=== PATIENT | male | born 1955 | race Caucasian/White ===

== ENCOUNTER → 2017-11-03 | Outpatient (CLI) | payer BC | END | disposition home or self-care (01) | LOC: US 12:01 | DX: N50.812 Left testicular pain (principal) | CPT/HCPCS: 76870 ==

== ENCOUNTER 2019-01-23 15:06 | Inpatient (IN) | payer BC ==
[~2019-01-23] VITALS: Ht 172.7 cm; Wt 68.1 kg
[2019-01-23] VITALS (10 sets, daily range): BP systolic 76–160; BP diastolic 52–100
--- NOTE | 2019-01-23 01:00 | NUR ---
Pt reached goal temp at 2200. PT Blood sugar greater than 180 at 2300 insulin drip initiated at 2.6units per hour. Blood sugar at 0100 was 86 Insulin drip was stopped, blood sugars after insulin drip stopped were all below 180. Will continue to monitor.
[~2019-01-23 15:06] MED LIST: EPINEPHrine SYRINGE 1 MG/10 ML SYRINGE ONE; SODIUM BICARB ADULT 8.4% 50 MEQ/50 ML DISP.SYRIN. ONE
[2019-01-23] MEDS ORDERED: IV NORMAL SALINE 1000ML BAG 1,000 ML IV SCH ×2 (15:13→19:17)
[2019-01-23 15:19] LABS: BASE EXCESS ABG -19 mmol/L (-3-3); HCO3 ABG 11 mmol/L (21-28); PCO2 ABG 42 mmHg (35-46); PO2 ABG 125 mmHg (65-108); SAT O2 ABG 97 % (92-99)
[2019-01-23] MEDS ORDERED: MIDAZOLAM HCL/PF 5 MG/5 ML VIAL. ONE ×2 (15:25→17:00)
[2019-01-23] MEDS ORDERED: PROPOFOL 50 ML IV ONE (15:25)
[2019-01-23] MEDS ORDERED: SODIUM BICARB ADULT 8.4% 50 MEQ/50 ML DISP.SYRIN. IV ONE (15:30)
[2019-01-23 15:32] LABS: FIO2 ABG 100
[2019-01-23 15:35] LABS: BASO # 0.1 x10^3/uL (0.0-0.2); BASO % 0 % (0-3); EOS # 0.1 x10^3/uL (0.0-0.7); EOS % 0 % (0-3); HEMATOCRIT 49.9 % (39.0-53.0); HEMOGLOBIN 16.7 g/dL (13.0-17.5); LYMPH # 2.9 x10^3/uL (1.0-4.8); LYMPH % 15 % (24-48); MEAN CORPUSCULAR HEMOGLOBIN 32 pg (25-35); MEAN CORPUSCULAR HGB CONC 33 g/dL (31-37); MEAN CORPUSCULAR VOLUME 95 fL (79-100); MONO # 0.6 x10^3/uL (0.0-1.1); MONO % 3 % (0-9); NEUT # 15.8 x10^3/uL (1.8-7.7); NEUT % 81 % (31-73); PLATELET COUNT 164 x10^3/uL (140-400); RED BLOOD COUNT 5.25 x10^6/uL (4.30-5.70); RED CELL DISTRIBUTION WIDTH 13.7 % (11.5-14.5); WHITE BLOOD COUNT 19.5 x10^3/uL (4.0-11.0)
--- NOTE | 2019-01-23 15:36 | PDOC2 ---
CARDIAC CONSULT DATE OF CONSULT Date of Consult DATE: 01/23/19 TIME: 15:32 REASON FOR CONSULT Reason for Consult: post cardiac arrest REFERRING PHYSICIAN Referring Physician: Rita SOURCE Source: Caregiver (spouse), Chart review HISTORY OF PRESENT ILLNESS HISTORY OF PRESENT ILLNESS This is a 63 yo male admitted for noted cardiac arrest. Pt came home from work around 1330 and was not feeling well. He went ahead and lay down on the cough. The spouse prepared him some soup and a little later he started sounding like he was choking. She then noticed that he was gasping for air. He called 911 and was told to put him on his side. He was already unconscious at that time. EMS arrived and noted him on V fib arrest and ACLS provided. He received at least x3 epi and amiodarone bolus and multiple shocks. In a span of 33 minutes he had on and off episodes of V fib which I did not see the strip. He is currently intubated with vent and actually was tyring to wake up and sedation was adjusted. He was taken to CT and again code was called with noted VT. He does not have any hx of any cardiac disease and he does not take any medications. He does smoke tobacco. Details provided by his and actually he just had a r ecent left inguinal hernia repair. No hx of arrhythmias or VTE. No recreational drug use PAST MEDICAL HISTORY Cardiovascular: No pertinent hx Pulmonary: No pertinent hx CENTRAL NERVOUS SYSTEM: Other (No pertinent history) GI: Other (inguinal hernia) Heme/Onc: No pertinent hx Hepatobiliary: No pertinent hx Psych: No pertinent hx Musculoskeletal: Osteoarthritis Rheumatologic: No pertinent hx Infectious disease: No pertinent hx ENT: No pertinent hx Renal/: No pertinent hx Endocrine: No pertinent hx Dermatology: No pertinent hx PAST SURGICAL HISTORY Past Surgical History: Hernia Repair (left inguinal) FAMILY HISTORY Family History: Coronary Artery Disease (father) SOCIAL HISTORY Smoke: <1 pack per day ALCOHOL: none Drugs: None Lives: with Family ALLERGIES ALLERGIES: Coded Allergies: No Known Drug Allergies (Unverified , 01/23/19) ROS Review of System unreliable, intubated PHYSICAL EXAM General: Other (intubated) HEENT: Atraumatic, Mucous membr. moist/pink Lungs: Other (diminished bases, intubated, mechaincal vent) Heart: Regular rate (SR), Other (2/6 systolic murmur to LLS border; EKG abnormal) Extremities: No cyanosis, Other (1+ bilateral LE pitting edema) Skin: No breakdown, No significant lesion Neuro: Other (sedated) MUSCULOSKELETAL: Osteoarthritic changes both hands LABS Lab: Laboratory Tests Test 01/23/19 15:15 O2 Saturation 97 % (92-99) Arterial Blood pH 7.04 (7.35-7.45) *L Arterial Blood pCO2 at Patient Temp 42 mmHg (35-46) Arterial Blood pO2 at Patient Temp 125 mmHg (65-108) H Arterial Blood HCO3 11 mmol/L (21-28) L Arterial Blood Base Excess -19 mmol/L (-3-3) L FiO2 100 ASSESSMENT/PLAN ASSESSMENT/PLAN 1. Vfib arrest: on and off V fib en route 33 minutes approx. Suspect ischemia with possible LM involvement per EKG 2. Acute respiratory failure: intubated/vent 3. Small left apical pneumothorax/rib fractures: possibly from compression 4. Nausea and vomiting with possible aspiration 5. Hypokalemia 6. MARIANNE 7. Leukocytosis 8. Hypothyroidism: Defer to PCP new. TSH 10 9. Tobaccoism Recommendations 1. Urgent LHC today, risks and benefits discussed with spouse and agreeable to proceed. Head CT no acute findings. 2. Amiodarone drip and heparin to start. ASA. Replace 3. TTE, TSH, lipids. Mg 4. CTA chest/abd/pelvis was done and pending 5. Will consult nephrology and pulmonary 6. Hypothermia protocol to commence post ALFA Wyatt APRN Jan 23, 2019 15:36
[2019-01-23 15:44] LABS: PROTHROMBIN TIME PATIENT 15.3 SEC (11.7-14.0)
[2019-01-23] MEDS ORDERED: INSULIN REGULAR 100 UNIT/ML 3ML VIAL. IV ONE (15:45)
[2019-01-23] MEDS ORDERED: DEXTROSE 50% 25 GM / 50ML DISP.SYRIN. IV ONE (15:45)
[2019-01-23] MEDS ORDERED: IOHEXOL 350 MG/ML 100 ML VIAL. IV ONE (15:45)
[2019-01-23 15:47] LABS: ALBUMIN 3.5 g/dL (3.4-5.0); CALCIUM 8.6 mg/dL (8.5-10.1); CREATININE 1.8 mg/dL (0.7-1.3); GFR 38.2; MAGNESIUM 2.7 mg/dL (1.8-2.4); TOTAL BILIRUBIN 0.8 mg/dL (0.2-1.0); TOTAL PROTEIN 6.9 g/dL (6.4-8.2)
--- NOTE | 2019-01-23 15:50 | RAD ---
PORTABLE CHEST 1V History: Respiratory failure. Comparison: None. Findings: Endotracheal tube with tip 6 cm above the lia. Enteric tube with tip in the gastric fundus. Patchy right upper lobe opacities. No pleural effusion. Normal heart size. Small left apical pneumothorax. Left lower lung calcified granuloma. Impression: 1. Small left apical pneumothorax. 2. Patchy right upper lobe and left central opacities, may represent pneumonia. Recommend follow-up to ensure resolution. FOR INTERNAL CODING PURPOSES Critical result: Findings discussed with ESTELA ROTHMAN at 01/23/2019 3:46 PM. RESULT CODE: (C) Electronically signed by: Tray Cardona DO (01/23/2019 3:47 PM) [facility]
[2019-01-23 15:51] LABS: POTASSIUM 2.8 mmol/L (3.5-5.1)
[2019-01-23] MEDS ORDERED: CALCIUM GLUCONATE 1,000 MG/10 ML VIAL. IVP ONE (16:00)
[2019-01-23] MEDS ORDERED: AMIODARONE 900 MG in IV DEXTROSE 5% 500 ML IV PRN (16:00)
[2019-01-23] MEDS ORDERED: VANCOMYCIN 1GM IVPB FOR OMNI 250 ML IV ONE (16:00)
[2019-01-23] MEDS ORDERED: PIPERACILLIN/TAZOBACTAM 3.375 GM in IV NORMAL SALINE 50ML 50 ML IV ONE (16:00)
--- NOTE | 2019-01-23 16:11 | PHYS DOC ---
Adult General Chief Complaint Chief Complaint: CPR/FULL ARREST HPI HPI Patient is a 63 year old male who brought in via EMS because of cardiorespiratory arrest. Patient stated that he had one episode of syncope while he was at work today and brought in home by coworker and then had episodes of vomiting and at 1429 had agonal respiration and his called 911. EMS arrived at the scene at 1435 patient was in ventricular patient was shocked and intubated. Patient had CPR in progress with few episode of having a spontaneous pulse. At arrival to ER at 1508 patient had a spontaneous pulse and chest compression was stopped. Patient's states he had left inguinal hernia surgery 2 weeks ago and has history of asthma without other medical problem. Patient did not have any complaining of chest pain or shortness of breath today. Review of Systems Review of Systems Unable to obtain because of CPR in progress Current Medications Current Medications Current Medications Medications (Trade) Dose Ordered Sig/Yaritza Start Time Stop Time Status Last Admin Dose Admin Midazolam HCl (Versed) 5 mg STK-MED ONCE 01/23/19 15:25 01/23/19 15:25 DC Propofol 50 ml @ As Directed STK-MED ONCE 01/23/19 15:25 01/23/19 15:25 DC Sodium Chloride 1,000 ml @ 1,000 mls/hr Q1H 01/23/19 15:13 01/23/19 16:12 DC 01/23/19 17:23 1,000 MLS/HR Allergies Allergies Physical Exam Physical Exam Constitutional: Unresponsive CPR in progress HENT: Atraumatic. Eyes: Fixed dilated pupil. Neck: Atraumatic Cardiovascular: CPR in progress, palpable femoral pulse Lungs & Thorax: No spontaneous respiration decrease of air movement in left long Abdomen:Atraumatic. Extremities: Atraumatic Neurologic: Unresponsive. Psychologic: Unresponsive. Current Patient Data Vital Signs Vital Signs Date Time Temp Pulse Resp B/P (MAP) Pulse Ox O2 Delivery O2 Flow Rate FiO2 01/23/19 15:25 Ventilator Lab Values Laboratory Tests Test 01/23/19 15:15 01/23/19 15:20 01/23/19 15:25 O2 Saturation 97 % (92-99) Arterial Blood pH 7.04 (7.35-7.45) *L Arterial Blood pCO2 at Patient Temp 42 mmHg (35-46) Arterial Blood pO2 at Patient Temp 125 mmHg (65-108) H Arterial Blood HCO3 11 mmol/L (21-28) L Arterial Blood Base Excess -19 mmol/L (-3-3) L FiO2 100 White Blood Count 19.5 x10^3/uL (4.0-11.0) H Red Blood Count 5.25 x10^6/uL (4.30-5.70) Hemoglobin 16.7 g/dL (13.0-17.5) Hematocrit 49.9 % (39.0-53.0) Mean Corpuscular Volume 95 fL (79-100) Mean Corpuscular Hemoglobin 32 pg (25-35) Mean Corpuscular Hemoglobin Concent 33 g/dL (31-37) Red Cell Distribution Width 13.7 % (11.5-14.5) Platelet Count 164 x10^3/uL (140-400) Neutrophils (%) (Auto) 81 % (31-73) H Lymphocytes (%) (Auto) 15 % (24-48) L Monocytes (%) (Auto) 3 % (0-9) Eosinophils (%) (Auto) 0 % (0-3) Basophils (%) (Auto) 0 % (0-3) Neutrophils # (Auto) 15.8 x10^3/uL (1.8-7.7) H Lymphocytes # (Auto) 2.9 x10^3/uL (1.0-4.8) Monocytes # (Auto) 0.6 x10^3/uL (0.0-1.1) Eosinophils # (Auto) 0.1 x10^3/uL (0.0-0.7) Basophils # (Auto) 0.1 x10^3/uL (0.0-0.2) Segmented Neutrophils % 65 % (35-66) Band Neutrophils % 11 % (0-9) H Lymphocytes % 17 % (24-48) L Monocytes % 5 % (0-10) Basophils % 1 % (0-3) Metamyelocytes % 1 % (0-0) H Platelet Estimate Adequate (ADEQUATE) Prothrombin Time 15.3 SEC (11.7-14.0) H Prothrombin Time INR 1.2 (0.8-1.1) H D-Dimer (Keisha) 12.31 ug/mlFEU (0.00-0.50) H Sodium Level 139 mmol/L (136-145) Potassium Level 2.8 mmol/L (3.5-5.1) *L Chloride Level 100 mmol/L (98-107) Carbon Dioxide Level 20 mmol/L (21-32) L Anion Gap 19 (6-14) H Blood Urea Nitrogen 20 mg/dL (8-26) Creatinine 1.8 mg/dL (0.7-1.3) H Estimated GFR (Cockcroft-Gault) 38.2 BUN/Creatinine Ratio 11 (6-20) Glucose Level 265 mg/dL (70-99) H Calcium Level 8.6 mg/dL (8.5-10.1) Magnesium Level 2.7 mg/dL (1.8-2.4) H Total Bilirubin 0.8 mg/dL (0.2-1.0) Aspartate Amino Transferase (AST) 159 U/L (15-37) H Alanine Aminotransferase (ALT) 190 U/L (16-63) H Alkaline Phosphatase 109 U/L (46-116) Creatine Kinase 213 U/L (39-308) Troponin I Quantitative 0.228 ng/mL (0.000-0.055) VM-Ppe-B-Type Natriuretic Peptide 306 pg/mL (0-124) H Total Protein 6.9 g/dL (6.4-8.2) Albumin 3.5 g/dL (3.4-5.0) Albumin/Globulin Ratio 1.0 (1.0-1.7) Lipase 115 U/L (73-393) Lactic Acid Level 9.5 mmol/L (0.4-2.0) *H Triglycerides Level 102 mg/dL (0-150) Cholesterol Level 148 mg/dL (0-200) LDL Cholesterol, Calculated 84 mg/dL (0-100) VLDL Cholesterol, Calculated 20 mg/dL (0-40) Non-HDL Cholesterol Calculated 104 mg/dL (0-129) HDL Cholesterol 44 mg/dL (40-60) Cholesterol/HDL Ratio 3.4 Thyroid Stimulating Hormone (TSH) 10.832 uIU/mL (0.358-3.74) H Laboratory Tests 01/23/19 15:20 Laboratory Tests 01/23/19 15:20 EKG EKG EKG interpreted by me. EKG at EKG interpreted by me. EKG at 1550 showed sinus rhythm with arrhythmia, abnormal right axis deviation, ST elevation in the D1 and aVL, severe ST depression in anterior leads, Radiology/Procedures Radiology/Procedures [][facility] [address] [place] [address] IMAGING REPORT Signed PATIENT: TOMI DOZIER EACCOUNT: [id number] : 1955 LOCATION: ER AGE: 63 SEX: M EXAM STATUS: REG ER ORD. PHYSICIAN: ESTELA ROTHMAN MD REASON: post CODE BLUE PROCEDURE: PORTABLE CHEST 1V PORTABLE CHEST 1V History: Respiratory failure. Comparison: None. Findings: Endotracheal tube with tip 6 cm above the lia. Enteric tube with tip in the gastric fundus. Patchy right upper lobe opacities. No pleural effusion. Normal heart size. Small left apical pneumothorax. Left lower lung calcified granuloma. Impression: 1. Small left apical pneumothorax. 2. Patchy right upper lobe and left central opacities, may represent pneumonia. Recommend follow-up to ensure resolution. FOR INTERNAL CODING PURPOSES Critical result: Findings discussed with ESTELA ROTHMAN at 01/23/2019 3:46 PM. RESULT CODE: (C) Electronically signed by: Tray Cardona DO (01/23/2019 3:47 PM) [facility] DICTATED and SIGNED BY: TRAY CARDONA DO DATE: 01/23/19 1547 [facility] [address] [place] [address] IMAGING REPORT Signed PATIENT: TOMI DOZIER EACCOUNT: [id number] : 1955 LOCATION: 1 [facility] AGE: 63 SEX: M EXAM STATUS: ADM IN ORD. PHYSICIAN: ESTELA ROTHMAN MD REASON: post code blue PROCEDURE: CT HEAD WO CONTRAST EXAM: Head CT without contrast. HISTORY: CODE BLUE. TECHNIQUE: Computed tomographic images of the head were obtained without contrast. *One or more of the following individualized dose reduction techniques were utilized for this examination: 1. Automated exposure control. 2. Adjustment of the mA and/or kV according to patient size. 3. Use of iterative reconstruction technique. COMPARISON: None. FINDINGS: There is no acute or subacute extra-axial or intraparenchymal hemorrhage. There is no mass effect or midline shift. There is no hydrocephalus. There are areas of decreased attenuation within the cerebral white matter, nonspecific and likely related to chronic small vessel disease. There is paranasal sinus mucosal thickening. There are small right maxillary sinus mucous retention cysts. The mastoid air cells are clear. No suspicious orbital or calvarial lesion is seen. IMPRESSION: No acute intracranial findings. Note is made that MRI is more sensitive for acute infarction. Electronically signed by: Donna Salas MD (01/23/2019 4:12 PM) [facility] DICTATED and SIGNED BY: DONNA SALAS MD DATE: 01/23/19 1612 [facility] [address] [place] [address] IMAGING REPORT Signed PATIENT: TOMI DOZIER EACCOUNT: [id number] : 1955 LOCATION: [address] [place] [address] AGE: 63 SEX: M EXAM STATUS: ADM IN ORD. PHYSICIAN: ESTELA ROTHMAN MD REASON: post code blue. R/O PE PROCEDURE: CT ANGIO CHEST ABD PELVIS CT ANGIO CHEST ABD PELVIS Indication: Post CODE BLUE. Evaluate aorta and pulmonary arteries was requested. Exposure: One or more of the following individualized dose reduction techniques were utilized for this examination: 1. Automated exposure control 2. Adjustment of the mA and/or kV according to patient size 3. Use of iterative reconstruction technique. TECHNIQUE: Standard imaging obtained after intravenous contrast. MIP reconstructions were obtained. 3-D reconstructions of the aorta are obtained. Comparison: None are available. CHEST: Mild irregularity of the wall of the ascending aorta, likely due to pulsatility artifact. The ascending aorta measures 2.9 cm transverse diameter. No descending aortic dissection. No aortic aneurysm. Proximal great vessels are patent. No evidence of central pulmonary embolism. Suboptimal visualization of the segmental pulmonary artery branches due to technique and limited enhancement. Endotracheal tube identified with tip above the lia. Feeding tube extends into the stomach. No evidence of thyroid mass. No significant lymph node enlargement. No pericardial effusion. No large pleural effusion. Small left side pneumothorax, seen from the apex through the base. Extensive emphysematous changes of both lungs. Prominent interstitial markings in the right upper lobe. The interstitial edema/infiltrate or more chronic disease. Consolidation/atelectasis in the posterior left lung. The trachea and mainstem bronchi are grossly patent. Mild gynecomastia is noted. Abdomen pelvis: Extensive artifact degrades the abdominal and pelvic images due to the arms which are at the side, as well as some motion degradation. Abdominal aorta is without evidence of aneurysm or dissection. Mild calcifications and ectasia. Renal arteries are patent bilaterally. Moderate narrowing of the proximal celiac axis. Superior mesenteric artery is patent. Inferior mesenteric artery is patent. Liver and spleen are grossly unremarkable but suboptimally visualized. Pancreas demonstrates no definite abnormality. No adrenal mass. Symmetric enhancement of both kidneys without obvious mass or evidence of hydronephrosis. There may be a tiny nonobstructive right renal calculus. No calcified gallstone. No significant lymph node enlargement. Mild wall thickening of small bowel loops. No obstructive distention is suggested. Limited bowel examination without oral contrast. Mild stool identified throughout colon. No evidence of acute colitis. Urinary bladder is collapsed around a العلي catheter. No significant ascites or evidence of pneumoperitoneum. Bones: Diffuse degenerative spondylosis. Vertebral body height is maintained. Probable nondisplaced anterior rib fractures bilaterally. There is cortical buckling of the anterior mid sternum suggesting a nondisplaced fracture. IMPRESSION: 1. No evidence of aortic aneurysm or definite dissection. 2. No evidence of central pulmonary embolism. Suboptimal evaluation of segmental pulmonary artery branches. 3. Small left pneumothorax. 4. Probable nondisplaced fractures of multiple bilateral upper anterior ribs. There may also be mild nondisplaced fracture of the mid sternum 5. Mild diffuse small bowel wall thickening, could indicate intramural hemorrhage or inflammatory or infectious enteritis. 6. Consolidation or infiltrate in the posterior left lower lobe. 7. Interstitial opacities, greatest in right upper lobe, indeterminate for acute infiltrates/edema or more chronic. FOR INTERNAL CODING PURPOSES Critical result: Findings discussed with Dr. Rothman at 01/23/2019 4:44 PM. RESULT CODE: (C) Electronically signed by: Asael Carrion MD (01/23/2019 4:45 PM) [facility] Course & Med Decision Making Course & Med Decision Making Pertinent Labs and Imaging studies reviewed. (See chart for details) Evaluation of patient in ER showed 63-year-old male patient brought in by EMS with cardiovascular arrest and CPR in progress. Patient had spontaneous pulse and CPR was stopped at arrival of patient to ER. Patient had abnormal EKG with severe ST depression in anterior leads and ST elevation in lateral leads and on- call senior informatica etl developer was consulted at 1532 and cardiology nurse practitioner responded to the call. Patient treated with IV fluid, antibiotic, Versed. CT of head and chest and abdomen and pelvis was requested. Portable chest x-ray showed a small pneumothorax in the left apical lung the need for treatment at this ti me.Patient requiring admission for further evaluation and treatment. Discussed with Dr. Balderas who is in agreement with admission. Discussed findings and plan with patient and family, who acknowledge understanding and agreement. Patient was evaluated by hospitalist in ER. Cardiology fabrication inspector was consulted again at 1616 and cardiology nurse practitioner presented to ER and evaluated the patient with plan of taking patient to the wharf labourer by senior informatica etl developer. Dragon Disclaimer Dragon Disclaimer This electronic medical record was generated, in whole or in part, using a voice recognition dictation system. Departure Departure Impression: Primary Impression: Cardiorespiratory arrest Additional Impressions: STEMI (ST elevation myocardial infarction) Severe sepsis Metabolic acidosis Hypokalemia Elevated troponin Elevated liver function tests Renal insufficiency Traumatic pneumothorax Ribs, multiple fractures Hyperglycemia Disposition: ADMITTED INPATIENT (1545) Admitting Physician: MARILEE (Dr. Balderas accepted admission at 1545) Condition: CRITICAL Referrals: DELMAR MELGAR (PCP) Critical Care Time Critical care time was 100 minutes exclusive of procedures. Date and Time of Reassessment Date: Jan 23, 2019 Time: 17:17 Fluid Challenge Is the fluid challenge complet: Yes IBW Target Volume Used: No (no low BP) BMI > 30: No Vital Signs Vital Signs: Vital Signs Date Time Temp Pulse Resp B/P (MAP) Pulse Ox O2 Delivery O2 Flow Rate FiO2 01/23/19 15:25 Ventilator Respirations Respiratory Effort: Mechanical ventilation Respiratory Pattern: Normal (on vent) Cardiovascular Pulse Rhythm: Regular Heart: No rubs, clicks or gallop Lung Sounds Breath Sounds: Clear Capillary Refil Capillary Refill: Rt Hand < 3 seconds Peripheral Pulse Pulse Location: Radial Pulse Strength: Normal (2+) Pulse Assessment Method: Cuff (manual) Problem Qualifiers Additional Impressions: STEMI (ST elevation myocardial infarction) Involved coronary artery: unspecified coronary artery Qualified Codes: I21.3 - ST elevation (STEMI) myocardial infarction of unspecified site Traumatic pneumothorax Encounter type: sequela Qualified Codes: S27.0XXS - Traumatic pneumothorax, sequela Ribs, multiple fractures Encounter type: sequela Fracture type: closed Laterality: bilateral Qualified Codes: S22.43XS - Multiple fractures of ribs, bilateral, sequela ESTELA ROTHMAN MD Jan 23, 2019 16:11
[2019-01-23 16:14] LABS: CHOLESTEROL/HDL RATIO 3.4
[2019-01-23 16:15] LABS: D-DIMER 12.31 ug/mlFEU (0.00-0.50)
[2019-01-23] MEDS ORDERED: MIDAZOLAM HCL/PF 2 MG/2 ML VIAL. IV ONE ×2 (16:15→19:45)
[2019-01-23] MEDS ORDERED: POLYVINYL ALCOHOL 1.4% OPHTH SOLUTION 15ML BOTTLE. OU PRN (16:15)
[2019-01-23] MEDS ORDERED: MIDAZOLAM 100mg/100ml NS BAG 100 ML IV PRN (16:15)
[2019-01-23] MEDS ORDERED: VECURONIUM BOLUS 10 MG VIAL. IV PRN (16:15)
[2019-01-23] MEDS ORDERED: MAGNESIUM SULFATE 1GM 100 ML IV ONE ×2 (16:15→19:45)
[2019-01-23] MEDS ORDERED: fentaNYL PF VIAL 100 MCG/2 ML VIAL IV ONE ×2 (16:15→19:45)
[2019-01-23] MEDS ORDERED: PROPOFOL 100 ML IV PRN ×2 (16:15→19:45)
--- NOTE | 2019-01-23 16:15 | RAD ---
EXAM: Head CT without contrast. HISTORY: CODE BLUE. TECHNIQUE: Computed tomographic images of the head were obtained without contrast. *One or more of the following individualized dose reduction techniques were utilized for this examination: 1. Automated exposure control. 2. Adjustment of the mA and/or kV according to patient size. 3. Use of iterative reconstruction technique. COMPARISON: None. FINDINGS: There is no acute or subacute extra-axial or intraparenchymal hemorrhage. There is no mass effect or midline shift. There is no hydrocephalus. There are areas of decreased attenuation within the cerebral white matter, nonspecific and likely related to chronic small vessel disease. There is paranasal sinus mucosal thickening. There are small right maxillary sinus mucous retention cysts. The mastoid air cells are clear. No suspicious orbital or calvarial lesion is seen. IMPRESSION: No acute intracranial findings. Note is made that MRI is more sensitive for acute infarction. Electronically signed by: Donna Gonzalez MD (01/23/2019 4:12 PM) [facility]
--- NOTE | 2019-01-23 16:21 | PDOC1 ---
History and Physical Date of Admission Date of Admission DATE: 01/23/19 TIME: 16:13 Identification/Chief Complaint Chief Complaint out of hospital cardiac arrest Source Source: Caregiver, Chart review, Patient History of Present Illness History of Present Illness 63 male, who was at work today and got dizzy or had pre syncopa vs syncopa sxs, then managed to get home, and at home felt worse, got worse and actually coded. EMS arrived, v fib with CPR done total 33 mins with 5 shocks total delivered. Only hx is asthma that we know of, Currently intubated,. no sedation but is trying to remove the ET tube, about to get miller CT, Labs initial: WBC 19, hgb ok, Na 133, K 2.8, Mag pending, creat 1.8,. VS holding. NOT hypetensive, Sounds like clean living, no vices and no prior personal or fam hx cardiac issues. Post intubation, there is a small PTX apical - HE IS ON THE VENT, so need to watch out for tension pneumo Past Medical History Pulmonary: Asthma Past Surgical History Past Surgical History: No pertinent history Family History Family History: Family History Unknown Social History Smoke: No ALCOHOL: none Drugs: None Current Problem List Problem List Problems Medical Problems: (1) Cardiorespiratory arrest Status: Acute Current Medications Current Medications Current Medications Sodium Chloride 1,000 ml @ 1,000 mls/hr Q1H IV ; Start 01/23/19 at 15:13; Stop 01/23/19 at 16:12; Status DC Sodium Bicarbonate (Sodium Bicarb Adult 8.4% Syr) 100 meq 1X ONCE IV ; Start 01/23/19 at 15:30; Stop 01/23/19 at 15:59; Status DC Midazolam HCl (Versed) 5 mg STK-MED ONCE .ROUTE ; Start 01/23/19 at 15:25; Stop 01/23/19 at 15:25; Status DC Propofol 50 ml @ As Directed STK-MED ONCE IV ; Start 01/23/19 at 15:25; Stop 01/23/19 at 15:25; Status DC Calcium Gluconate (Calcium Gluconate) 1,000 mg 1X ONCE IVP Last administered on 01/23/19at 16:12; Start 01/23/19 at 16:00; Stop 01/23/19 at 16:01; Status DC Dextrose (Dextrose 50%-Water Syringe) 25 gm 1X ONCE IV ; Start 01/23/19 at 15:45; Stop 01/23/19 at 15:53; Status DC Insulin Human Regular (HumuLIN R VIAL) 10 unit 1X ONCE IV ; Start 01/23/19 at 15:45; Stop 01/23/19 at 15:53; Status DC Iohexol (Omnipaque 350 Mg/ml) 90 ml 1X ONCE IV Last administered on 01/23/19at 16:08; Start 01/23/19 at 15:45; Stop 01/23/19 at 16:00; Status DC Amiodarone HCl 900 mg/Dextrose 518 ml @ 0 mls/hr CONT PRN IV SEE I/O RECORD; Start 01/23/19 at 16:00; Status UNV Piperacillin Sod/ Tazobactam Sod 3.375 gm/Sodium Chloride 50 ml @ 100 mls/hr 1X ONCE IV ; Start 01/23/19 at 16:00; Stop 01/23/19 at 16:29; Status UNV Vancomycin HCl 250 ml @ 250 mls/hr 1X ONCE IV ; Start 01/23/19 at 16:00; Stop 01/23/19 at 16:59; Status UNV Allergies Allergies: Coded Allergies: No Known Drug Allergies (Unverified , 01/23/19) ROS Review of System intubated Physical Exam General: No acute distress, Other (intubated, on propofol) HEENT: Atraumatic, PERRLA Lungs: Normal air movement, Other (SCE< no wheezing, tachycardic, tympanitic ADE) Heart: S1S2, RRR, no thrills, no rubs, no gallops, no murmurs, other (tachycardia) Cardiovascular: S1, S2 Abdomen: Normal bowel sounds, Soft, No tenderness, No hepatosplenomegaly, No masses Male Genitals Exam: normal genitalia, normal prostate Rectal Exam: not examined PELVIC: Nml ext genitalia Extremities: No clubbing, No cyanosis, No edema, Normal pulses, No tenderness/swelling Skin: No rashes, No breakdown, No significant lesion Neuro: Normal gait, Normal speech, Strength at 5/5 X4 ext, Normal tone, Sensation intact, Cranial nerves 3-12 NL, Reflexes 2+ Psych/Mental Status: Mental status NL, Mood NL Labs Labs Laboratory Tests Test 01/23/19 15:15 01/23/19 15:20 O2 Saturation 97 % (92-99) Arterial Blood pH 7.04 (7.35-7.45) Arterial Blood pCO2 at Patient Temp 42 mmHg (35-46) Arterial Blood pO2 at Patient Temp 125 mmHg (65-108) Arterial Blood HCO3 11 mmol/L (21-28) Arterial Blood Base Excess -19 mmol/L (-3-3) FiO2 100 White Blood Count 19.5 x10^3/uL (4.0-11.0) Red Blood Count 5.25 x10^6/uL (4.30-5.70) Hemoglobin 16.7 g/dL (13.0-17.5) Hematocrit 49.9 % (39.0-53.0) Mean Corpuscular Volume 95 fL (79-100) Mean Corpuscular Hemoglobin 32 pg (25-35) Mean Corpuscular Hemoglobin Concent 33 g/dL (31-37) Red Cell Distribution Width 13.7 % (11.5-14.5) Platelet Count 164 x10^3/uL (140-400) Neutrophils (%) (Auto) 81 % (31-73) Lymphocytes (%) (Auto) 15 % (24-48) Monocytes (%) (Auto) 3 % (0-9) Eosinophils (%) (Auto) 0 % (0-3) Basophils (%) (Auto) 0 % (0-3) Neutrophils # (Auto) 15.8 x10^3/uL (1.8-7.7) Lymphocytes # (Auto) 2.9 x10^3/uL (1.0-4.8) Monocytes # (Auto) 0.6 x10^3/uL (0.0-1.1) Eosinophils # (Auto) 0.1 x10^3/uL (0.0-0.7) Basophils # (Auto) 0.1 x10^3/uL (0.0-0.2) Sodium Level 139 mmol/L (136-145) Potassium Level 2.8 mmol/L (3.5-5.1) Chloride Level 100 mmol/L (98-107) Carbon Dioxide Level 20 mmol/L (21-32) Anion Gap 19 (6-14) Blood Urea Nitrogen 20 mg/dL (8-26) Creatinine 1.8 mg/dL (0.7-1.3) Estimated GFR (Cockcroft-Gault) 38.2 BUN/Creatinine Ratio 11 (6-20) Glucose Level 265 mg/dL (70-99) Calcium Level 8.6 mg/dL (8.5-10.1) Magnesium Level 2.7 mg/dL (1.8-2.4) Total Bilirubin 0.8 mg/dL (0.2-1.0) Aspartate Amino Transf (AST/SGOT) 159 U/L (15-37) Alanine Aminotransferase (ALT/SGPT) 190 U/L (16-63) Alkaline Phosphatase 109 U/L (46-116) Creatine Kinase 213 U/L (39-308) Troponin I Quantitative 0.228 ng/mL (0.000-0.055) WC-Fcf-Y-Type Natriuretic Peptide 306 pg/mL (0-124) Total Protein 6.9 g/dL (6.4-8.2) Albumin 3.5 g/dL (3.4-5.0) Albumin/Globulin Ratio 1.0 (1.0-1.7) Lipase 115 U/L (73-393) Laboratory Tests Test 01/23/19 15:15 01/23/19 15:20 O2 Saturation 97 % (92-99) Arterial Blood pH 7.04 (7.35-7.45) Arterial Blood pCO2 at Patient Temp 42 mmHg (35-46) Arterial Blood pO2 at Patient Temp 125 mmHg (65-108) Arterial Blood HCO3 11 mmol/L (21-28) Arterial Blood Base Excess -19 mmol/L (-3-3) FiO2 100 White Blood Count 19.5 x10^3/uL (4.0-11.0) Red Blood Count 5.25 x10^6/uL (4.30-5.70) Hemoglobin 16.7 g/dL (13.0-17.5) Hematocrit 49.9 % (39.0-53.0) Mean Corpuscular Volume 95 fL (79-100) Mean Corpuscular Hemoglobin 32 pg (25-35) Mean Corpuscular Hemoglobin Concent 33 g/dL (31-37) Red Cell Distribution Width 13.7 % (11.5-14.5) Platelet Count 164 x10^3/uL (140-400) Neutrophils (%) (Auto) 81 % (31-73) Lymphocytes (%) (Auto) 15 % (24-48) Monocytes (%) (Auto) 3 % (0-9) Eosinophils (%) (Auto) 0 % (0-3) Basophils (%) (Auto) 0 % (0-3) Neutrophils # (Auto) 15.8 x10^3/uL (1.8-7.7) Lymphocytes # (Auto) 2.9 x10^3/uL (1.0-4.8) Monocytes # (Auto) 0.6 x10^3/uL (0.0-1.1) Eosinophils # (Auto) 0.1 x10^3/uL (0.0-0.7) Basophils # (Auto) 0.1 x10^3/uL (0.0-0.2) Sodium Level 139 mmol/L (136-145) Potassium Level 2.8 mmol/L (3.5-5.1) Chloride Level 100 mmol/L (98-107) Carbon Dioxide Level 20 mmol/L (21-32) Anion Gap 19 (6-14) Blood Urea Nitrogen 20 mg/dL (8-26) Creatinine 1.8 mg/dL (0.7-1.3) Estimated GFR (Cockcroft-Gault) 38.2 BUN/Creatinine Ratio 11 (6-20) Glucose Level 265 mg/dL (70-99) Calcium Level 8.6 mg/dL (8.5-10.1) Magnesium Level 2.7 mg/dL (1.8-2.4) Total Bilirubin 0.8 mg/dL (0.2-1.0) Aspartate Amino Transf (AST/SGOT) 159 U/L (15-37) Alanine Aminotransferase (ALT/SGPT) 190 U/L (16-63) Alkaline Phosphatase 109 U/L (46-116) Creatine Kinase 213 U/L (39-308) Troponin I Quantitative 0.228 ng/mL (0.000-0.055) ZO-Pav-E-Type Natriuretic Peptide 306 pg/mL (0-124) Total Protein 6.9 g/dL (6.4-8.2) Albumin 3.5 g/dL (3.4-5.0) Albumin/Globulin Ratio 1.0 (1.0-1.7) Lipase 115 U/L (73-393) VTE Prophylaxis Ordered VTE Prophylaxis Devices: Yes VTE Pharmacological Prophylaxi: Yes Assessment/Plan Assessment/Plan s/p out of hospital cardiac arrest, V Fib with ROSC after 33 mins CPR and 5 defibrillations given Post intubation SMALL APICAL PTX Respi failure sec to above # 1 on IPPV Asthma SIRS sec to # 1, no infection REactive leukocytosis CRITCAL hypokalemia, 2,8 HYPERmagnesemia 2.7 MARIANNE post code MIld hypochloremia 101 PLAn: ICU bed, ff up MILLER CT PPI and lovenox SQ HYPOTHERMIA protocol AMio gtt Cards and pulmo consults VEnt bundle, propofol gtt HE was trying to remove ET so that is promising in terms of brain fcn during his down time FULL CODE Villa inserted with good UO Further recs pending course seen in ER Noam clay, ER CC 34 DERECK CAREY MD Jan 23, 2019 16:21
--- NOTE | 2019-01-23 16:22 | EKG ---
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
[2019-01-23 16:26] LABS: % BANDS 11 % (0-9); % BASOS 1 % (0-3); % LYMPHS 17 % (24-48); % METAS 1 % (0-0); % MONOS 5 % (0-10); % SEGS 65 % (35-66); PLT ESTIMATE ADEQUATE (ADEQUATE)
[2019-01-23] MEDS ORDERED: LIDOCAINE 1% Multi-Dose 20 ML VIAL. ONE (16:37)
--- NOTE | 2019-01-23 16:47 | RAD ---
CT ANGIO CHEST ABD PELVIS Indication: Post CODE BLUE. Evaluate aorta and pulmonary arteries was requested. Exposure: One or more of the following individualized dose reduction techniques were utilized for this examination: 1. Automated exposure control 2. Adjustment of the mA and/or kV according to patient size 3. Use of iterative reconstruction technique. TECHNIQUE: Standard imaging obtained after intravenous contrast. MIP reconstructions were obtained. 3-D reconstructions of the aorta are obtained. Comparison: None are available. CHEST: Mild irregularity of the wall of the ascending aorta, likely due to pulsatility artifact. The ascending aorta measures 2.9 cm transverse diameter. No descending aortic dissection. No aortic aneurysm. Proximal great vessels are patent. No evidence of central pulmonary embolism. Suboptimal visualization of the segmental pulmonary artery branches due to technique and limited enhancement. Endotracheal tube identified with tip above the lia. Feeding tube extends into the stomach. No evidence of thyroid mass. No significant lymph node enlargement. No pericardial effusion. No large pleural effusion. Small left side pneumothorax, seen from the apex through the base. Extensive emphysematous changes of both lungs. Prominent interstitial markings in the right upper lobe. The interstitial edema/infiltrate or more chronic disease. Consolidation/atelectasis in the posterior left lung. The trachea and mainstem bronchi are grossly patent. Mild gynecomastia is noted. Abdomen pelvis: Extensive artifact degrades the abdominal and pelvic images due to the arms which are at the side, as well as some motion degradation. Abdominal aorta is without evidence of aneurysm or dissection. Mild calcifications and ectasia. Renal arteries are patent bilaterally. Moderate narrowing of the proximal celiac axis. Superior mesenteric artery is patent. Inferior mesenteric artery is patent. Liver and spleen are grossly unremarkable but suboptimally visualized. Pancreas demonstrates no definite abnormality. No adrenal mass. Symmetric enhancement of both kidneys without obvious mass or evidence of hydronephrosis. There may be a tiny nonobstructive right renal calculus. No calcified gallstone. No significant lymph node enlargement. Mild wall thickening of small bowel loops. No obstructive distention is suggested. Limited bowel examination without oral contrast. Mild stool identified throughout colon. No evidence of acute colitis. Urinary bladder is collapsed around a العلي catheter. No significant ascites or evidence of pneumoperitoneum. Bones: Diffuse degenerative spondylosis. Vertebral body height is maintained. Probable nondisplaced anterior rib fractures bilaterally. There is cortical buckling of the anterior mid sternum suggesting a nondisplaced fracture. IMPRESSION: 1. No evidence of aortic aneurysm or definite dissection. 2. No evidence of central pulmonary embolism. Suboptimal evaluation of segmental pulmonary artery branches. 3. Small left pneumothorax. 4. Probable nondisplaced fractures of multiple bilateral upper anterior ribs. There may also be mild nondisplaced fracture of the mid sternum 5. Mild diffuse small bowel wall thickening, could indicate intramural hemorrhage or inflammatory or infectious enteritis. 6. Consolidation or infiltrate in the posterior left lower lobe. 7. Interstitial opacities, greatest in right upper lobe, indeterminate for acute infiltrates/edema or more chronic. FOR INTERNAL CODING PURPOSES Critical result: Findings discussed with Dr. Salinas at 01/23/2019 4:44 PM. RESULT CODE: (C) Electronically signed by: Asael Carrion MD (01/23/2019 4:45 PM) [id number]
[2019-01-23] MEDS: POTASSIUM CHLORIDE 10MEQ 100 ML IV SCH ×6 (16:49→23:00)
[2019-01-23] MEDS ORDERED: HEPARIN 25,000UTS/500ML PREMIX 500 ML IV PRN (17:00)
[2019-01-23] MEDS ORDERED: PANTOPRAZOLE IV PUSH 40 MG VIAL. IVP ONE (17:00)
[2019-01-23] MEDS ORDERED: ASPIRIN RECTAL 300 MG SUPP. PR ONE (17:00)
[2019-01-23 17:05] LABS: BASE EXCESS ABG -6 mmol/L (-3-3); HCO3 ABG 20 mmol/L (21-28); PCO2 ABG 39 mmHg (35-46); PO2 ABG 441 mmHg (65-108); SAT O2 ABG 99 % (92-99)
[2019-01-23 17:07] LABS: FIO2 ABG 100
[2019-01-23] MEDS ORDERED: PROPOFOL 50 ML IV STA (17:17)
[2019-01-23] MEDS ORDERED: MIDAZOLAM HCL/PF 5 MG/5 ML VIAL. IV ONE ×2 (17:30→18:15)
[2019-01-23] MEDS ORDERED: IV NORMAL SALINE 1000ML BAG 1,000 ML IV ONE (17:30)
[2019-01-23] MEDS ORDERED: NALOXONE 0.4 MG/ML VIAL. IV PRN (17:45)
[2019-01-23] MEDS ORDERED: VANCOMYCIN 1.75 GM in IV NORMAL SALINE 500ML BAG 500 ML IV ONE (18:00)
[2019-01-23] MEDS ORDERED: AMIODARONE 150 MG/3 ML VIAL ONE (18:11)
[2019-01-23] MEDS ORDERED: IODIXANOL 320 MG/ML 100 ML VIAL. ONE (18:19)
[2019-01-23] MEDS ORDERED: BIVALIRUDIN 250 MG VIAL. IV ONE ×2 (18:20→18:45)
[2019-01-23] MEDS ORDERED: LIDOCAINE 1% Multi-Dose 20 ML VIAL. INJ ONE (18:45)
[2019-01-23] MEDS ORDERED: IODIXANOL 320 MG/ML 100 ML VIAL. IART ONE (18:45)
[2019-01-23] MEDS ORDERED: NITROGLYCERIN 200 MCG/2 ML SYRINGE FOR CATH/VASC LAB. IART ONE (18:45)
[2019-01-23] MEDS ORDERED: AMIODARONE 150 MG in IV DEXTROSE 5% 100ML 100 ML IV ONE (19:00)
[2019-01-23] MEDS ORDERED: CONTRAST GIVEN. MC PRN (19:00)
--- NOTE | 2019-01-23 19:21 | EKG ---
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
--- NOTE | 2019-01-23 19:27 | PDOC4 ---
PROCEDURE Procedure Brief cath note. Occluded LCX. 3 Stents placed. 0% residual. Sheaths left in place. Critically ill. Discussed with the patient's family. Full report to follow. ISAMAR CHEUNG MD Jan 23, 2019 19:27
[2019-01-23] MEDS ORDERED: ACETAMINOPHEN 325 MG TABLET. PO PRN (19:30)
[2019-01-23] MEDS ORDERED: NITROGLYCERIN SUBLINGUAL 0.4 MG BOTTLE OF 25. SL PRN (19:30)
[2019-01-23] MEDS ORDERED: ATROPINE 0.5 MG/5 ML DISP.SYRINGE. IV PRN (19:30)
[2019-01-23] MEDS ORDERED: fentaNYL PF VIAL 100 MCG/2 ML VIAL IV PRN (19:30)
[2019-01-23] MEDS ORDERED: 0.9 % SODIUM CHLORIDE 10 ML DISP.SYRIN. IV PRN (19:30)
[2019-01-23] MEDS ORDERED: LIDOCAINE 2% 100 MG/5 ML SYRINGE. IV PRN (19:30)
[2019-01-23] MEDS ORDERED: AMIODARONE 150 MG in IV DEXTROSE 5% 100ML 100 ML IV PRN (19:30)
--- NOTE | 2019-01-23 20:00 | NUR ---
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 Pt transferred to ICU bed and connected to monitor. Pt assessed, labs drawn, and Arctic sun applied. Pt is currently on the ventilator with Amiodarone gtt, Versed @ 10mg/hr, and NS at 150mL/hr. Hypothermia protocol is initiated, vitals are currently stable, will continue to monitor.
[2019-01-23] MEDS: ACETAMINOPHEN 650 MG/20.3 ML SOLUTION. NG SCH ×2 (20:15→20:25)
[2019-01-23 20:21] LABS: BASE EXCESS ABG -6 mmol/L (-3-3); CORRECTED PCO2 ABG 31 mmHg; CORRECTED PH ABG 7.37; CORRECTED PO2 ABG 140 mmHg; HCO3 ABG 17 mmol/L (21-28); PCO2 ABG 30 mmHg (35-46); PO2 ABG 136 mmHg (65-108); SAT O2 ABG 98 % (92-99)
[2019-01-23 20:24] LABS: FIO2 ABG 50
[2019-01-23] MEDS: busPIRone 10 MG TABLET. NG SCH (20:25)
[2019-01-23] MEDS ORDERED: IV NORMAL SALINE 500ML BAG 500 ML IV ONE (20:45)
[2019-01-23] MEDS ORDERED: NOREPINEPHRIN 8MG/250ML PREMIX 250 ML IV PRN (20:45)
[2019-01-23] MEDS: VECURONIUM BOLUS 10 MG VIAL. IV PRN (20:57)
[2019-01-23] MEDS ORDERED: ENOXAPARIN 40 MG/0.4 ML SYRINGE. SQ SCH (21:00)
[2019-01-23] MEDS ORDERED: HEPARIN for SUB-Q USE 5,000 UNIT/ML VIAL. SQ SCH (21:00)
[2019-01-23] MEDS: POLYVINYL ALCOHOL 1.4% OPHTH SOLUTION 15ML BOTTLE. OU SCH (21:00)
[2019-01-23 22:02] LABS: CALCIUM 8.2 mg/dL (8.5-10.1); CREATININE 1.1 mg/dL (0.7-1.3); GFR 67.4; MAGNESIUM 1.9 mg/dL (1.8-2.4); POTASSIUM 4.8 mmol/L (3.5-5.1)
[2019-01-23 22:07] LABS: BILIRUBIN,URINE NEGATIVE (NEG); CLARITY,URINE CLEAR; COLOR,URINE YELLOW; NITRITE,URINE NEGATIVE (NEG); PROTEIN,URINE 100 mg/dL (NEG-TRACE); UROBILINOGEN,URINE 0.2 mg/dL (0.2 mg/dL)
[2019-01-23 22:13] LABS: AMPHETAMINE/METHAMPHETAMINE NEG (NEG); BARBITURATES NEG (NEG); BENZODIAZEPINES POS (NEG); CANNABINOIDS POS (NEG); COCAINE NEG (NEG); METHADONE NEG (NEG); OPIATES NEG (NEG); PHENCYCLIDINE NEG (NEG)
[2019-01-23 22:14] LABS: BACTERIA,URINE 0 /HPF (0-FEW); HYALINE CASTS, URINE OCCASIONAL /HPF; RBC,URINE 20-40 /HPF (0-2); WBC,URINE OCC /HPF (0-4)
[2019-01-23] MEDS: MIDAZOLAM 100mg/100ml NS BAG 100 ML IV PRN (22:18)
[2019-01-23] MEDS: IV NORMAL SALINE 1000ML BAG 1,000 ML IV SCH ×3 (22:19→22:51)
[2019-01-23] MEDS ORDERED: INSULIN REGULAR VIAL 150 UNIT in 0.9 % SODIUM CHLORIDE 150ML 150 ML IV PRN (23:15)
[2019-01-23] MEDS ORDERED: DOXYCYCLINE HYCLATE 100 MG in IV DEXTROSE 5% 100ML 100 ML IV ONE (23:30)
[2019-01-23] MEDS: HEPARIN for SUB-Q USE 5,000 UNIT/ML VIAL. SQ SCH (23:31)
[2019-01-24] VITALS (26 sets, daily range): BP systolic 94–165; BP diastolic 54–89
[2019-01-24] MEDS: DAPTOmycin (GENERIC) IVPB 440 MG in IV NORMAL SALINE 50ML 50 ML IV SCH ×2 (00:12→22:45)
[2019-01-24] MEDS: POLYVINYL ALCOHOL 1.4% OPHTH SOLUTION 15ML BOTTLE. OU SCH ×4 (00:12→17:34)
[2019-01-24 00:14] LABS: BASO # 0.1 x10^3/uL (0.0-0.2); BASO % 0 % (0-3); EOS % 0 % (0-3); HEMATOCRIT 44.8 % (39.0-53.0); HEMOGLOBIN 15.3 g/dL (13.0-17.5); LYMPH # 0.4 x10^3/uL (1.0-4.8); LYMPH % 2 % (24-48); MEAN CORPUSCULAR HEMOGLOBIN 32 pg (25-35); MEAN CORPUSCULAR HGB CONC 34 g/dL (31-37); MEAN CORPUSCULAR VOLUME 93 fL (79-100); MONO # 0.8 x10^3/uL (0.0-1.1); MONO % 3 % (0-9); NEUT # 24.2 x10^3/uL (1.8-7.7); NEUT % 95 % (31-73); PLATELET COUNT 160 x10^3/uL (140-400); RED BLOOD COUNT 4.82 x10^6/uL (4.30-5.70); RED CELL DISTRIBUTION WIDTH 13.2 % (11.5-14.5); WHITE BLOOD COUNT 25.5 x10^3/uL (4.0-11.0)
[2019-01-24 00:23] LABS: PROTHROMBIN TIME PATIENT 19.1 SEC (11.7-14.0)
[2019-01-24 00:28] LABS: CALCIUM 7.5 mg/dL (8.5-10.1); CREATININE 1.1 mg/dL (0.7-1.3); GFR 67.4; MAGNESIUM 2.2 mg/dL (1.8-2.4); PHOSPHORUS 3.5 mg/dL (2.6-4.7); POTASSIUM 4.1 mmol/L (3.5-5.1)
[2019-01-24] MEDS: busPIRone 10 MG TABLET. NG SCH ×3 (01:58→15:58)
[2019-01-24] MEDS: VECURONIUM BOLUS 10 MG VIAL. IV PRN ×4 (01:58→21:18)
[2019-01-24] MEDS: ACETAMINOPHEN 650 MG/20.3 ML SOLUTION. NG SCH ×6 (01:58→21:18)
--- NOTE | 2019-01-24 04:22 | NUR ---
See Hypothermia Assessment for Vital Signs Addendum: 01/24/19 at 0425 by SAWYER HARPER RN RN Amended: Links added.
[2019-01-24] MEDS: IV NORMAL SALINE 1000ML BAG 1,000 ML IV SCH ×4 (04:43→22:43)
[2019-01-24 06:35] LABS: CALCIUM 7.6 mg/dL (8.5-10.1); CREATININE 0.9 mg/dL (0.7-1.3); MAGNESIUM 2.1 mg/dL (1.8-2.4); POTASSIUM 3.9 mmol/L (3.5-5.1)
[2019-01-24 06:38] LABS: BASO % 0 % (0-3); EOS % 0 % (0-3); HEMATOCRIT 44.5 % (39.0-53.0); HEMOGLOBIN 15.1 g/dL (13.0-17.5); LYMPH # 0.9 x10^3/uL (1.0-4.8); LYMPH % 4 % (24-48); MEAN CORPUSCULAR HEMOGLOBIN 32 pg (25-35); MEAN CORPUSCULAR HGB CONC 34 g/dL (31-37); MEAN CORPUSCULAR VOLUME 93 fL (79-100); MONO % 4 % (0-9); NEUT # 20.8 x10^3/uL (1.8-7.7); NEUT % 92 % (31-73); PLATELET COUNT 138 x10^3/uL (140-400); RED BLOOD COUNT 4.76 x10^6/uL (4.30-5.70); RED CELL DISTRIBUTION WIDTH 13.5 % (11.5-14.5); WHITE BLOOD COUNT 22.6 x10^3/uL (4.0-11.0)
[2019-01-24 06:42] LABS: PROTHROMBIN TIME PATIENT 16.4 SEC (11.7-14.0)
[2019-01-24] MEDS ORDERED: MAGNESIUM SULFATE 2GM 50 ML IV ONE (06:45)
[2019-01-24 06:56] LABS: CREATININE ISTAT 1.6 mg/dL (0.5-1.4); HEMOGLOBIN ISTAT 17.3 g/dL (14-18); ION CA ISTAT 0.99 mmol/L (1.13-1.32); POTASSIUM ISTAT 6.5 mmol/L (3.5-5.0)
[2019-01-24] MEDS ORDERED: PANTOPRAZOLE IV PUSH 40 MG VIAL. IVP SCH ×2 (07:30→09:00)
--- NOTE | 2019-01-24 07:37 | PDOC ---
Infectious Disease Note Vital Sign Vital Signs Vital Signs Date Time Temp Pulse Resp B/P (MAP) Pulse Ox O2 Delivery O2 Flow Rate FiO2 01/24/19 06:00 92.8 68 20 117/68 100 Ventilator 01/24/19 04:36 15.0 Labs Lab Laboratory Tests Test 01/23/19 15:15 01/23/19 15:20 01/23/19 15:25 01/23/19 15:26 O2 Saturation 97 % (92-99) Arterial Blood pH 7.04 (7.35-7.45) Arterial Blood pCO2 at Patient Temp 42 mmHg (35-46) Arterial Blood pO2 at Patient Temp 125 mmHg (65-108) Arterial Blood HCO3 11 mmol/L (21-28) Arterial Blood Base Excess -19 mmol/L (-3-3) FiO2 100 White Blood Count 19.5 x10^3/uL (4.0-11.0) Red Blood Count 5.25 x10^6/uL (4.30-5.70) Hemoglobin 16.7 g/dL (13.0-17.5) Hematocrit 49.9 % (39.0-53.0) Mean Corpuscular Volume 95 fL (79-100) Mean Corpuscular Hemoglobin 32 pg (25-35) Mean Corpuscular Hemoglobin Concent 33 g/dL (31-37) Red Cell Distribution Width 13.7 % (11.5-14.5) Platelet Count 164 x10^3/uL (140-400) Neutrophils (%) (Auto) 81 % (31-73) Lymphocytes (%) (Auto) 15 % (24-48) Monocytes (%) (Auto) 3 % (0-9) Eosinophils (%) (Auto) 0 % (0-3) Basophils (%) (Auto) 0 % (0-3) Neutrophils # (Auto) 15.8 x10^3/uL (1.8-7.7) Lymphocytes # (Auto) 2.9 x10^3/uL (1.0-4.8) Monocytes # (Auto) 0.6 x10^3/uL (0.0-1.1) Eosinophils # (Auto) 0.1 x10^3/uL (0.0-0.7) Basophils # (Auto) 0.1 x10^3/uL (0.0-0.2) Segmented Neutrophils % 65 % (35-66) Band Neutrophils % 11 % (0-9) Lymphocytes % 17 % (24-48) Monocytes % 5 % (0-10) Basophils % 1 % (0-3) Metamyelocytes % 1 % (0-0) Platelet Estimate Adequate (ADEQUATE) Prothrombin Time 15.3 SEC (11.7-14.0) Prothromb Time International Ratio 1.2 (0.8-1.1) D-Dimer (Keisha) 12.31 ug/mlFEU (0.00-0.50) Sodium Level 139 mmol/L (136-145) Potassium Level 2.8 mmol/L (3.5-5.1) Chloride Level 100 mmol/L (98-107) Carbon Dioxide Level 20 mmol/L (21-32) Anion Gap 19 (6-14) 17 mmol/L (6-14) Blood Urea Nitrogen 20 mg/dL (8-26) Creatinine 1.8 mg/dL (0.7-1.3) Estimated GFR (Cockcroft-Gault) 38.2 BUN/Creatinine Ratio 11 (6-20) Glucose Level 265 mg/dL (70-99) 264 mg/dL (70-99) Calcium Level 8.6 mg/dL (8.5-10.1) Magnesium Level 2.7 mg/dL (1.8-2.4) Total Bilirubin 0.8 mg/dL (0.2-1.0) Aspartate Amino Transf (AST/SGOT) 159 U/L (15-37) Alanine Aminotransferase (ALT/SGPT) 190 U/L (16-63) Alkaline Phosphatase 109 U/L (46-116) Creatine Kinase 213 U/L (39-308) Troponin I Quantitative 0.228 ng/mL (0.000-0.055) LT-Obu-C-Type Natriuretic Peptide 306 pg/mL (0-124) Total Protein 6.9 g/dL (6.4-8.2) Albumin 3.5 g/dL (3.4-5.0) Albumin/Globulin Ratio 1.0 (1.0-1.7) Lipase 115 U/L (73-393) Bedside Hemoglobin 17.3 g/dL (14-18) Bedside Hematocrit 51 % (37-52) Bedside Sodium 133 mmol/L (135-145) Bedside Potassium 6.5 mmol/L (3.5-5.0) Bedside Chloride 101 mmol/L (98-110) Bedside Total CO2 23 mmol/L (23-32) Bedside Blood Urea Nitrogen 31 mg/dL (8-26) Bedside Creatinine 1.6 mg/dL (0.5-1.4) Lactic Acid Level 9.5 mmol/L (0.4-2.0) Bedside Ionized Calcium (Clover) 0.99 mmol/L (1.13-1.32) Triglycerides Level 102 mg/dL (0-150) Cholesterol Level 148 mg/dL (0-200) LDL Cholesterol, Calculated 84 mg/dL (0-100) VLDL Cholesterol, Calculated 20 mg/dL (0-40) Non-HDL Cholesterol Calculated 104 mg/dL (0-129) HDL Cholesterol 44 mg/dL (40-60) Cholesterol/HDL Ratio 3.4 Thyroid Stimulating Hormone (TSH) 10.832 uIU/mL (0.358-3.74) Bedside Troponin I 0.09 ng/ml (<0.08) Test 01/23/19 17:00 01/23/19 20:13 01/23/19 20:15 01/23/19 20:18 O2 Saturation 99 % (92-99) 98 % (92-99) Arterial Blood pH 7.33 (7.35-7.45) 7.38 (7.35-7.45) Arterial Blood pCO2 at Patient Temp 39 mmHg (35-46) 30 mmHg (35-46) Arterial Blood pO2 at Patient Temp 441 mmHg (65-108) 136 mmHg (65-108) Arterial Blood HCO3 20 mmol/L (21-28) 17 mmol/L (21-28) Arterial Blood Base Excess -6 mmol/L (-3-3) -6 mmol/L (-3-3) FiO2 100 50 Sodium Level 139 mmol/L (136-145) Potassium Level 4.8 mmol/L (3.5-5.1) Chloride Level 103 mmol/L (98-107) Carbon Dioxide Level 19 mmol/L (21-32) Anion Gap 17 (6-14) Blood Urea Nitrogen 21 mg/dL (8-26) Creatinine 1.1 mg/dL (0.7-1.3) Estimated GFR (Cockcroft-Gault) 67.4 Glucose Level 180 mg/dL (70-99) Lactic Acid Level 3.1 mmol/L (0.4-2.0) Calcium Level 8.2 mg/dL (8.5-10.1) Magnesium Level 1.9 mg/dL (1.8-2.4) Troponin I Quantitative 11.377 ng/mL (0.000-0.055) Arterial Blood pH (Temp corrected) 7.37 Arterial Blood pCO2 (Temp correct) 31 mmHg Arterial Blood pO2 (Temp corrected) 140 mmHg Glucose (Fingerstick) 167 mg/dL (70-99) Test 01/23/19 22:00 01/23/19 23:05 01/24/19 00:00 01/24/19 00:01 Urine Collection Type Unknown Urine Color Yellow Urine Clarity Clear Urine pH 5.0 Urine Specific [place] >=1.030 Urine Protein 100 mg/dL (NEG-TRACE) Urine Glucose (UA) 100 mg/dL (NEG) Urine Ketones (Stick) 15 mg/dL (NEG) Urine Blood Large (NEG) Urine Nitrite Negative (NEG) Urine Bilirubin Negative (NEG) Urine Urobilinogen Dipstick 0.2 mg/dL (0.2 mg/dL) Urine Leukocyte Esterase Negative (NEG) Urine RBC 20-40 /HPF (0-2) Urine WBC Occ /HPF (0-4) Urine Bacteria 0 /HPF (0-FEW) Urine Hyaline Casts Occasional /HPF Urine Mucus Slight /LPF Glucose (Fingerstick) 166 mg/dL (70-99) 212 mg/dL (70-99) 190 mg/dL (70-99) Urine Opiates Screen Neg (NEG) Urine Methadone Screen Neg (NEG) Urine Barbiturates Neg (NEG) Urine Phencyclidine Screen Neg (NEG) Urine Amphetamine/Methamphetamine Neg (NEG) Urine Benzodiazepines Screen Pos (NEG) Urine Cocaine Screen Neg (NEG) Urine Cannabinoids Screen Pos (NEG) Urine Ethyl Alcohol Neg (NEG) White Blood Count 25.5 x10^3/uL (4.0-11.0) Red Blood Count 4.82 x10^6/uL (4.30-5.70) Hemoglobin 15.3 g/dL (13.0-17.5) Hematocrit 44.8 % (39.0-53.0) Mean Corpuscular Volume 93 fL (79-100) Mean Corpuscular Hemoglobin 32 pg (25-35) Mean Corpuscular Hemoglobin Concent 34 g/dL (31-37) Red Cell Distribution Width 13.2 % (11.5-14.5) Platelet Count 160 x10^3/uL (140-400) Neutrophils (%) (Auto) 95 % (31-73) Lymphocytes (%) (Auto) 2 % (24-48) Monocytes (%) (Auto) 3 % (0-9) Eosinophils (%) (Auto) 0 % (0-3) Basophils (%) (Auto) 0 % (0-3) Neutrophils # (Auto) 24.2 x10^3/uL (1.8-7.7) Lymphocytes # (Auto) 0.4 x10^3/uL (1.0-4.8) Monocytes # (Auto) 0.8 x10^3/uL (0.0-1.1) Eosinophils # (Auto) 0.0 x10^3/uL (0.0-0.7) Basophils # (Auto) 0.1 x10^3/uL (0.0-0.2) Prothrombin Time 19.1 SEC (11.7-14.0) Prothromb Time International Ratio 1.6 (0.8-1.1) Activated Partial Thromboplast Time 47 SEC (24-38) Sodium Level 139 mmol/L (136-145) Potassium Level 4.1 mmol/L (3.5-5.1) Chloride Level 106 mmol/L (98-107) Carbon Dioxide Level 20 mmol/L (21-32) Anion Gap 13 (6-14) Blood Urea Nitrogen 19 mg/dL (8-26) Creatinine 1.1 mg/dL (0.7-1.3) Estimated GFR (Cockcroft-Gault) 67.4 Glucose Level 189 mg/dL (70-99) Calcium Level 7.5 mg/dL (8.5-10.1) Phosphorus Level 3.5 mg/dL (2.6-4.7) Magnesium Level 2.2 mg/dL (1.8-2.4) Ionized Calcium 1.02 mmol/L (1.13-1.32) Test 01/24/19 01:05 01/24/19 02:16 01/24/19 03:08 01/24/19 04:09 Glucose (Fingerstick) 86 mg/dL (70-99) 101 mg/dL (70-99) 137 mg/dL (70-99) 127 mg/dL (70-99) Test 01/24/19 05:41 01/24/19 05:45 01/24/19 06:11 Glucose (Fingerstick) 118 mg/dL (70-99) 110 mg/dL (70-99) White Blood Count 22.6 x10^3/uL (4.0-11.0) Red Blood Count 4.76 x10^6/uL (4.30-5.70) Hemoglobin 15.1 g/dL (13.0-17.5) Hematocrit 44.5 % (39.0-53.0) Mean Corpuscular Volume 93 fL (79-100) Mean Corpuscular Hemoglobin 32 pg (25-35) Mean Corpuscular Hemoglobin Concent 34 g/dL (31-37) Red Cell Distribution Width 13.5 % (11.5-14.5) Platelet Count 138 x10^3/uL (140-400) Neutrophils (%) (Auto) 92 % (31-73) Lymphocytes (%) (Auto) 4 % (24-48) Monocytes (%) (Auto) 4 % (0-9) Eosinophils (%) (Auto) 0 % (0-3) Basophils (%) (Auto) 0 % (0-3) Neutrophils # (Auto) 20.8 x10^3/uL (1.8-7.7) Lymphocytes # (Auto) 0.9 x10^3/uL (1.0-4.8) Monocytes # (Auto) 1.0 x10^3/uL (0.0-1.1) Eosinophils # (Auto) 0.0 x10^3/uL (0.0-0.7) Basophils # (Auto) 0.0 x10^3/uL (0.0-0.2) Sodium Level 142 mmol/L (136-145) Potassium Level 3.9 mmol/L (3.5-5.1) Chloride Level 110 mmol/L (98-107) Carbon Dioxide Level 22 mmol/L (21-32) Anion Gap 10 (6-14) Blood Urea Nitrogen 16 mg/dL (8-26) Creatinine 0.9 mg/dL (0.7-1.3) Estimated GFR (Cockcroft-Gault) 85.0 Glucose Level 134 mg/dL (70-99) Calcium Level 7.6 mg/dL (8.5-10.1) Ionized Calcium 1.06 mmol/L (1.13-1.32) Phosphorus Level 2.8 mg/dL (2.6-4.7) Magnesium Level 2.1 mg/dL (1.8-2.4) Troponin I Quantitative 27.704 ng/mL (0.000-0.055) Micro IMPRESSION: 1. No evidence of aortic aneurysm or definite dissection. 2. No evidence of central pulmonary embolism. Suboptimal evaluation of segmental pulmonary artery branches. 3. Small left pneumothorax. 4. Probable nondisplaced fractures of multiple bilateral upper anterior ribs. There may also be mild nondisplaced fracture of the mid sternum 5. Mild diffuse small bowel wall thickening, could indicate intramural hemorrhage or inflammatory or infectious enteritis. 6. Consolidation or infiltrate in the posterior left lower lobe. 7. Interstitial opacities, greatest in right upper lobe, indeterminate for acute infiltrates/edema or more chronic. 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 Dose dapto for blood and Zyvox for lung Zosyn for potential aspiration/? abdominal and CAP. Doxy for atypicals and given Afib avoid quinolones/macrolides F/u lfts this am and Free T4/Procalcitionin Strep and legionella antigens/mycoplasma and sputum cult F/u labs and cults Critically ill 35 mins D/w nursing Thank you # [id number] OLI BOBO MD Jan 24, 2019 07:37
[2019-01-24 08:26] LABS: ALBUMIN 2.9 g/dL (3.4-5.0); DIRECT BILIRUBIN 0.5 mg/dL (0.0-0.2); TOTAL BILIRUBIN 1.8 mg/dL (0.2-1.0); TOTAL PROTEIN 5.6 g/dL (6.4-8.2)
[2019-01-24] MEDS: ASPIRIN ENTERIC COATED 325 MG TABLET.DR. PO SCH (08:27)
[2019-01-24] MEDS: PIPERACILLIN/TAZOBACTAM 3.375 GM in IV NORMAL SALINE 50ML 50 ML IV SCH ×3 (08:27→17:36)
[2019-01-24] MEDS: HEPARIN for SUB-Q USE 5,000 UNIT/ML VIAL. SQ SCH ×2 (08:28→21:19)
--- NOTE | 2019-01-24 08:28 | NUR ---
SS following for discharge planning. SS reviewed pt chart. Pt is from home with spouse and is currently on the vent. SS will continue to follow for discharge planning.
[2019-01-24] MEDS: PANTOPRAZOLE IV PUSH 40 MG VIAL. IVP SCH (08:29)
[2019-01-24] MEDS: DOXYCYCLINE HYCLATE 100 MG in IV DEXTROSE 5% 100ML 100 ML IV SCH ×2 (08:29→21:18)
[2019-01-24 08:40] LABS: BASE EXCESS ABG -8 mmol/L (-3-3); CORRECTED PCO2 ABG 43 mmHg; CORRECTED PH ABG 7.27; CORRECTED PO2 ABG 82 mmHg; HCO3 ABG 20 mmol/L (21-28); PCO2 ABG 48 mmHg (35-46); PO2 ABG 94 mmHg (65-108); SAT O2 ABG 96 % (92-99)
[2019-01-24 08:42] LABS: FIO2 ABG 40
--- NOTE | 2019-01-24 08:46 | CONS ---
DATE OF CONSULTATION: 01/24/2019 PATIENT'S ROOM: ICU 4. REQUESTING PHYSICIAN: Daniel Aaron MD REASON FOR CONSULTATION: Sepsis, pneumonia. HISTORY OF PRESENT ILLNESS: The patient is a 63-year-old gentleman, currently intubated, sedated, unable to provide any past medical history, history of present illness, review of systems. There is no current family here. Per report, he came home from work on 01/23/2019 about 1:30 not feeling well and went to lie down on the couch. Apparently, he then sounded like he began to choke and gasp for air. 911 was called. On arrival, he was unconscious. He was found to be in AFib. ACLS was started. He received 3 doses of epinephrine, amiodarone, multiple shocks as well as compressions. Apparently, he had been in AFib. He was brought to the Emergency Room. He was intubated and was taken to the CT scan, apparently coded again, was noted to be in V-tach. On arrival, he had a temp of 98.2, blood pressure was 122/68. His blood pressure did drop in the 70s/50s at one point. On arrival, white blood cell count was 19.5. He underwent a CT scan of the head, did not show any acute intracranial findings. Chest, abdomen and pelvis were obtained, showed no central pulmonary embolisms or small left pneumothorax with some nondisplaced fractures and a nondisplaced fracture of the mid sternum, diffuse small bowel wall thickening, consolidation or infiltrate in the posterior left lower lobe, interstitial opacities, greatest in the right upper lobe, indeterminate acute infiltrates and edema. He was emergently taken to the kiln labou[facility] and was found to have an occluded left circumflex, underwent placement of 3 stents and hypothermia protocol was instituted. He had received a dose of vancomycin. Zosyn was also ordered. I was consulted last evening with concerns of potential pneumonia. I was informed that he had received Zosyn and vancomycin. I discontinued any further vancomycin out of concern for potential acute kidney injury given the myocardial infarction, the contrast load and potential sepsis. Given the concern for pneumonia and sepsis, I instituted daptomycin for a bloodstream coverage, Zyvox for pneumonia, but I continued the Zosyn and added doxycycline for atypicals. Currently, the patient appears comfortable. PAST MEDICAL HISTORY: Apparently, he underwent a left inguinal hernia repair approximately 2 weeks ago. He has some osteoarthritis. Otherwise, is unknown. REVIEW OF SYSTEMS: Unobtainable. ALLERGIES: No known drug allergies. SOCIAL HISTORY: He is a smoker. He is . FAMILY HISTORY: Positive for coronary artery disease in his father. MEDICATIONS: Included amiodarone. Again, the doxy, the dapto, Zyvox that are instituted. He is not on any pressors. Currently on aspirin, Angiomax, BuSpar, Plavix, Lovenox. Was given heparin subcutaneous currently. Received some insulin and pantoprazole. PHYSICAL EXAMINATION: VITAL SIGNS: Current temp is 98.2 core, he is on hypothermia protocol, pulse 68, respirations 20, blood pressure 117/68. HEENT: Pupils are small, minimally reactive. He has normal conjunctivae. He is orally intubated. NECK: Supple. No JVD. LUNGS: Decreased at bases. HEART: S1, S2. ABDOMEN: Minimally distended, decreased bowel sounds. He has a well-approximated incision in the left lower quadrant. GENITOURINARY: العلي is in place. EXTREMITIES: No clubbing or cyanosis. No gross edema. He has IVs in his right upper extremity x 3. Left upper extremity has 1. Right groin area has a heart line in place. SKIN: Warm to touch without signs of rash. NEUROLOGICAL: He is intubated and sedated. LABORATORY VALUES: Currently, white count 22.6; down from 25.5, hemoglobin 15.1, platelets are 138, 92 segs, 4 lymphs. He did have 11 bands on presentation. On arrival, AST is 159, ALT 190. Creatinine was 1.8. Current creatinine of 0.9. Glucose of 134. Troponin 27.704. TSH on arrival was 10.832. RADIOLOGY: Reviewed in history of present illness. IMPRESSION: 1. Sepsis present on admission, 01/23/2019. 2. Pneumonia with left lower lobe infiltrates and interstitial opacities. 3. Status post out of the hospital cardiac arrest, 01/23/2019, with left circumflex occlusion, status post 3 stents. 4. Bandemia. 5. Recent left lower quadrant hernia repair, incision is clean. 6. Small left apical pneumothorax. 7. Ventricular fibrillation arrest, status post amiodarone. 8. Elevated TSH. 9. Transaminitis. 10. Diffuse small bowel wall thickening on CT. RECOMMENDATIONS: Again, given an IV contrast with a CTA with the cardiac stents and hypertension, he is at risk for acute kidney injury. So, avoiding vancomycin currently, dose dapto for blood, Zyvox for lung, Zosyn for potential aspiration, questionable abdominal and community-acquired pneumonia, doxycycline for atypicals. Given AFib, avoid quinolones and macrolides. We will follow up LFTs this morning. Also, add free T4 given his elevated TSH and procalcitonin this morning. Obtain Strep and Legionella antigens as well as mycoplasma and sputum cultures. We will follow up labs and cultures. He is critically ill. I spent 35 minutes. This was discussed with nursing. Thank you for allowing me to participate in the patient's care. If you have any questions, please do not hesitate to contact me. OLI BOBO MD DR: FELICIA/singh JOB#: [id number] / [id number] TIFF
[2019-01-24] MEDS: CLOPIDOGREL BISULFATE 75 MG TABLET PO SCH (09:16)
--- NOTE | 2019-01-24 09:29 | PDOC ---
PROGRESS NOTES Chief Complaint Chief Complaint CAD s/p stat PCI/LHC with stents to left circ (x 3 stents) s/p out of hospital cardiac arrest, V Fib with ROSC after 33 mins CPR and 5 defibrillations given Post intubation SMALL APICAL PTX Respi failure sec to above # 1 on IPPV Asthma SIRS sec to # 1, no infection REactive leukocytosis CRITCAL hypokalemia, 2,8 HYPERmagnesemia 2.7 MARIANNE post code MIld hypochloremia 101 History of Present Illness History of Present Illness having echo Intubated, sedated ON cooling phase still Prior to hypothermia he was trying to ripp off his ET K has been corrected (was 2,8) PLAn: Cont hypothermia AWait echo ICU care VEnt bundle etc Vitals Vitals Vital Signs Date Time Temp Pulse Resp B/P (MAP) Pulse Ox O2 Delivery O2 Flow Rate FiO2 01/24/19 08:28 100 Ventilator 01/24/19 07:00 94.6 75 25 122/65 01/24/19 04:36 15.0 Physical Exam General: No acute distress, Other (intubated) Heart: Regular rate (SR), Normal S1, Normal S2, Other (2/6 systolic murmur to LLS border; EKG abnormal) Lungs: Clear Abdomen: Normal bowel sounds, Soft, No tenderness, No hepatosplenomegaly, No masses Extremities: No cyanosis, Other (1+ bilateral LE pitting edema) Skin: No breakdown, No significant lesion Labs LABS Laboratory Tests Test 01/23/19 15:15 01/23/19 15:20 01/23/19 15:25 01/23/19 15:26 O2 Saturation 97 % (92-99) Arterial Blood pH 7.04 (7.35-7.45) Arterial Blood pCO2 at Patient Temp 42 mmHg (35-46) Arterial Blood pO2 at Patient Temp 125 mmHg (65-108) Arterial Blood HCO3 11 mmol/L (21-28) Arterial Blood Base Excess -19 mmol/L (-3-3) FiO2 100 White Blood Count 19.5 x10^3/uL (4.0-11.0) Red Blood Count 5.25 x10^6/uL (4.30-5.70) Hemoglobin 16.7 g/dL (13.0-17.5) Hematocrit 49.9 % (39.0-53.0) Mean Corpuscular Volume 95 fL (79-100) Mean Corpuscular Hemoglobin 32 pg (25-35) Mean Corpuscular Hemoglobin Concent 33 g/dL (31-37) Red Cell Distribution Width 13.7 % (11.5-14.5) Platelet Count 164 x10^3/uL (140-400) Neutrophils (%) (Auto) 81 % (31-73) Lymphocytes (%) (Auto) 15 % (24-48) Monocytes (%) (Auto) 3 % (0-9) Eosinophils (%) (Auto) 0 % (0-3) Basophils (%) (Auto) 0 % (0-3) Neutrophils # (Auto) 15.8 x10^3/uL (1.8-7.7) Lymphocytes # (Auto) 2.9 x10^3/uL (1.0-4.8) Monocytes # (Auto) 0.6 x10^3/uL (0.0-1.1) Eosinophils # (Auto) 0.1 x10^3/uL (0.0-0.7) Basophils # (Auto) 0.1 x10^3/uL (0.0-0.2) Segmented Neutrophils % 65 % (35-66) Band Neutrophils % 11 % (0-9) Lymphocytes % 17 % (24-48) Monocytes % 5 % (0-10) Basophils % 1 % (0-3) Metamyelocytes % 1 % (0-0) Platelet Estimate Adequate (ADEQUATE) Prothrombin Time 15.3 SEC (11.7-14.0) Prothromb Time International Ratio 1.2 (0.8-1.1) D-Dimer (Keisha) 12.31 ug/mlFEU (0.00-0.50) Sodium Level 139 mmol/L (136-145) Potassium Level 2.8 mmol/L (3.5-5.1) Chloride Level 100 mmol/L (98-107) Carbon Dioxide Level 20 mmol/L (21-32) Anion Gap 19 (6-14) 17 mmol/L (6-14) Blood Urea Nitrogen 20 mg/dL (8-26) Creatinine 1.8 mg/dL (0.7-1.3) Estimated GFR (Cockcroft-Gault) 38.2 BUN/Creatinine Ratio 11 (6-20) Glucose Level 265 mg/dL (70-99) 264 mg/dL (70-99) Calcium Level 8.6 mg/dL (8.5-10.1) Magnesium Level 2.7 mg/dL (1.8-2.4) Total Bilirubin 0.8 mg/dL (0.2-1.0) Aspartate Amino Transf (AST/SGOT) 159 U/L (15-37) Alanine Aminotransferase (ALT/SGPT) 190 U/L (16-63) Alkaline Phosphatase 109 U/L (46-116) Creatine Kinase 213 U/L (39-308) Troponin I Quantitative 0.228 ng/mL (0.000-0.055) MC-Ggg-P-Type Natriuretic Peptide 306 pg/mL (0-124) Total Protein 6.9 g/dL (6.4-8.2) Albumin 3.5 g/dL (3.4-5.0) Albumin/Globulin Ratio 1.0 (1.0-1.7) Lipase 115 U/L (73-393) Bedside Hemoglobin 17.3 g/dL (14-18) Bedside Hematocrit 51 % (37-52) Bedside Sodium 133 mmol/L (135-145) Bedside Potassium 6.5 mmol/L (3.5-5.0) Bedside Chloride 101 mmol/L (98-110) Bedside Total CO2 23 mmol/L (23-32) Bedside Blood Urea Nitrogen 31 mg/dL (8-26) Bedside Creatinine 1.6 mg/dL (0.5-1.4) Lactic Acid Level 9.5 mmol/L (0.4-2.0) Bedside Ionized Calcium (Clover) 0.99 mmol/L (1.13-1.32) Triglycerides Level 102 mg/dL (0-150) Cholesterol Level 148 mg/dL (0-200) LDL Cholesterol, Calculated 84 mg/dL (0-100) VLDL Cholesterol, Calculated 20 mg/dL (0-40) Non-HDL Cholesterol Calculated 104 mg/dL (0-129) HDL Cholesterol 44 mg/dL (40-60) Cholesterol/HDL Ratio 3.4 Thyroid Stimulating Hormone (TSH) 10.832 uIU/mL (0.358-3.74) Bedside Troponin I 0.09 ng/ml (<0.08) Test 01/23/19 17:00 01/23/19 20:13 01/23/19 20:15 01/23/19 20:18 O2 Saturation 99 % (92-99) 98 % (92-99) Arterial Blood pH 7.33 (7.35-7.45) 7.38 (7.35-7.45) Arterial Blood pCO2 at Patient Temp 39 mmHg (35-46) 30 mmHg (35-46) Arterial Blood pO2 at Patient Temp 441 mmHg (65-108) 136 mmHg (65-108) Arterial Blood HCO3 20 mmol/L (21-28) 17 mmol/L (21-28) Arterial Blood Base Excess -6 mmol/L (-3-3) -6 mmol/L (-3-3) FiO2 100 50 Sodium Level 139 mmol/L (136-145) Potassium Level 4.8 mmol/L (3.5-5.1) Chloride Level 103 mmol/L (98-107) Carbon Dioxide Level 19 mmol/L (21-32) Anion Gap 17 (6-14) Blood Urea Nitrogen 21 mg/dL (8-26) Creatinine 1.1 mg/dL (0.7-1.3) Estimated GFR (Cockcroft-Gault) 67.4 Glucose Level 180 mg/dL (70-99) Lactic Acid Level 3.1 mmol/L (0.4-2.0) Calcium Level 8.2 mg/dL (8.5-10.1) Magnesium Level 1.9 mg/dL (1.8-2.4) Troponin I Quantitative 11.377 ng/mL (0.000-0.055) Arterial Blood pH (Temp corrected) 7.37 Arterial Blood pCO2 (Temp correct) 31 mmHg Arterial Blood pO2 (Temp corrected) 140 mmHg Glucose (Fingerstick) 167 mg/dL (70-99) Test 01/23/19 22:00 01/23/19 23:05 01/24/19 00:00 01/24/19 00:01 Urine Collection Type Unknown Urine Color Yellow Urine Clarity Clear Urine pH 5.0 Urine Specific [place] Pool >=1.030 Urine Protein 100 mg/dL (NEG-TRACE) Urine Glucose (UA) 100 mg/dL (NEG) Urine Ketones (Stick) 15 mg/dL (NEG) Urine Blood Large (NEG) Urine Nitrite Negative (NEG) Urine Bilirubin Negative (NEG) Urine Urobilinogen Dipstick 0.2 mg/dL (0.2 mg/dL) Urine Leukocyte Esterase Negative (NEG) Urine RBC 20-40 /HPF (0-2) Urine WBC Occ /HPF (0-4) Urine Bacteria 0 /HPF (0-FEW) Urine Hyaline Casts Occasional /HPF Urine Mucus Slight /LPF Glucose (Fingerstick) 166 mg/dL (70-99) 212 mg/dL (70-99) 190 mg/dL (70-99) Urine Opiates Screen Neg (NEG) Urine Methadone Screen Neg (NEG) Urine Barbiturates Neg (NEG) Urine Phencyclidine Screen Neg (NEG) Urine Amphetamine/Methamphetamine Neg (NEG) Urine Benzodiazepines Screen Pos (NEG) Urine Cocaine Screen Neg (NEG) Urine Cannabinoids Screen Pos (NEG) Urine Ethyl Alcohol Neg (NEG) White Blood Count 25.5 x10^3/uL (4.0-11.0) Red Blood Count 4.82 x10^6/uL (4.30-5.70) Hemoglobin 15.3 g/dL (13.0-17.5) Hematocrit 44.8 % (39.0-53.0) Mean Corpuscular Volume 93 fL (79-100) Mean Corpuscular Hemoglobin 32 pg (25-35) Mean Corpuscular Hemoglobin Concent 34 g/dL (31-37) Red Cell Distribution Width 13.2 % (11.5-14.5) Platelet Count 160 x10^3/uL (140-400) Neutrophils (%) (Auto) 95 % (31-73) Lymphocytes (%) (Auto) 2 % (24-48) Monocytes (%) (Auto) 3 % (0-9) Eosinophils (%) (Auto) 0 % (0-3) Basophils (%) (Auto) 0 % (0-3) Neutrophils # (Auto) 24.2 x10^3/uL (1.8-7.7) Lymphocytes # (Auto) 0.4 x10^3/uL (1.0-4.8) Monocytes # (Auto) 0.8 x10^3/uL (0.0-1.1) Eosinophils # (Auto) 0.0 x10^3/uL (0.0-0.7) Basophils # (Auto) 0.1 x10^3/uL (0.0-0.2) Prothrombin Time 19.1 SEC (11.7-14.0) Prothromb Time International Ratio 1.6 (0.8-1.1) Activated Partial Thromboplast Time 47 SEC (24-38) Sodium Level 139 mmol/L (136-145) Potassium Level 4.1 mmol/L (3.5-5.1) Chloride Level 106 mmol/L (98-107) Carbon Dioxide Level 20 mmol/L (21-32) Anion Gap 13 (6-14) Blood Urea Nitrogen 19 mg/dL (8-26) Creatinine 1.1 mg/dL (0.7-1.3) Estimated GFR (Cockcroft-Gault) 67.4 Glucose Level 189 mg/dL (70-99) Calcium Level 7.5 mg/dL (8.5-10.1) Phosphorus Level 3.5 mg/dL (2.6-4.7) Magnesium Level 2.2 mg/dL (1.8-2.4) Ionized Calcium 1.02 mmol/L (1.13-1.32) Test 01/24/19 01:05 01/24/19 02:16 01/24/19 03:08 01/24/19 04:09 Glucose (Fingerstick) 86 mg/dL (70-99) 101 mg/dL (70-99) 137 mg/dL (70-99) 127 mg/dL (70-99) Test 01/24/19 05:41 01/24/19 05:45 01/24/19 06:11 01/24/19 08:30 Glucose (Fingerstick) 118 mg/dL (70-99) 110 mg/dL (70-99) White Blood Count 22.6 x10^3/uL (4.0-11.0) Red Blood Count 4.76 x10^6/uL (4.30-5.70) Hemoglobin 15.1 g/dL (13.0-17.5) Hematocrit 44.5 % (39.0-53.0) Mean Corpuscular Volume 93 fL (79-100) Mean Corpuscular Hemoglobin 32 pg (25-35) Mean Corpuscular Hemoglobin Concent 34 g/dL (31-37) Red Cell Distribution Width 13.5 % (11.5-14.5) Platelet Count 138 x10^3/uL (140-400) Neutrophils (%) (Auto) 92 % (31-73) Lymphocytes (%) (Auto) 4 % (24-48) Monocytes (%) (Auto) 4 % (0-9) Eosinophils (%) (Auto) 0 % (0-3) Basophils (%) (Auto) 0 % (0-3) Neutrophils # (Auto) 20.8 x10^3/uL (1.8-7.7) Lymphocytes # (Auto) 0.9 x10^3/uL (1.0-4.8) Monocytes # (Auto) 1.0 x10^3/uL (0.0-1.1) Eosinophils # (Auto) 0.0 x10^3/uL (0.0-0.7) Basophils # (Auto) 0.0 x10^3/uL (0.0-0.2) Prothrombin Time 16.4 SEC (11.7-14.0) Prothromb Time International Ratio 1.4 (0.8-1.1) Activated Partial Thromboplast Time 39 SEC (24-38) Sodium Level 142 mmol/L (136-145) Potassium Level 3.9 mmol/L (3.5-5.1) Chloride Level 110 mmol/L (98-107) Carbon Dioxide Level 22 mmol/L (21-32) Anion Gap 10 (6-14) Blood Urea Nitrogen 16 mg/dL (8-26) Creatinine 0.9 mg/dL (0.7-1.3) Estimated GFR (Cockcroft-Gault) 85.0 Glucose Level 134 mg/dL (70-99) Calcium Level 7.6 mg/dL (8.5-10.1) Ionized Calcium 1.06 mmol/L (1.13-1.32) Phosphorus Level 2.8 mg/dL (2.6-4.7) Magnesium Level 2.1 mg/dL (1.8-2.4) Total Bilirubin 1.8 mg/dL (0.2-1.0) Direct Bilirubin 0.5 mg/dL (0.0-0.2) Aspartate Amino Transf (AST/SGOT) 294 U/L (15-37) Alanine Aminotransferase (ALT/SGPT) 181 U/L (16-63) Alkaline Phosphatase 68 U/L (46-116) Troponin I Quantitative 27.704 ng/mL (0.000-0.055) Total Protein 5.6 g/dL (6.4-8.2) Albumin 2.9 g/dL (3.4-5.0) Free Thyroxine 1.25 ng/dL (0.76-1.46) O2 Saturation 96 % (92-99) Arterial Blood pH 7.24 (7.35-7.45) Arterial Blood pH (Temp corrected) 7.27 Arterial Blood pCO2 at Patient Temp 48 mmHg (35-46) Arterial Blood pCO2 (Temp correct) 43 mmHg Arterial Blood pO2 at Patient Temp 94 mmHg (65-108) Arterial Blood pO2 (Temp corrected) 82 mmHg Arterial Blood HCO3 20 mmol/L (21-28) Arterial Blood Base Excess -8 mmol/L (-3-3) FiO2 40 Test 01/24/19 08:36 Glucose (Fingerstick) 94 mg/dL (70-99) Review of Systems Review of Systems intubated, sedated Assessment and Plan Assessmemt and Plan Problems Medical Problems: (1) Cardiorespiratory arrest Status: Acute (2) Elevated liver function tests Status: Acute (3) Elevated troponin Status: Acute (4) Hyperglycemia Status: Acute (5) Hypokalemia Status: Acute (6) Metabolic acidosis Status: Acute (7) Renal insufficiency Status: Acute (8) Ribs, multiple fractures Status: Acute (9) Severe sepsis Status: Acute (10) STEMI (ST elevation myocardial infarction) Status: Acute (11) Traumatic pneumothorax Status: Acute Comment Review of Relevant I have reviewed the following items yadi (where applicable) has been applied. Labs Laboratory Tests Test 01/23/19 15:15 01/23/19 15:20 01/23/19 15:25 01/23/19 15:26 O2 Saturation 97 % (92-99) Arterial Blood pH 7.04 (7.35-7.45) Arterial Blood pCO2 at Patient Temp 42 mmHg (35-46) Arterial Blood pO2 at Patient Temp 125 mmHg (65-108) Arterial Blood HCO3 11 mmol/L (21-28) Arterial Blood Base Excess -19 mmol/L (-3-3) FiO2 100 White Blood Count 19.5 x10^3/uL (4.0-11.0) Red Blood Count 5.25 x10^6/uL (4.30-5.70) Hemoglobin 16.7 g/dL (13.0-17.5) Hematocrit 49.9 % (39.0-53.0) Mean Corpuscular Volume 95 fL (79-100) Mean Corpuscular Hemoglobin 32 pg (25-35) Mean Corpuscular Hemoglobin Concent 33 g/dL (31-37) Red Cell Distribution Width 13.7 % (11.5-14.5) Platelet Count 164 x10^3/uL (140-400) Neutrophils (%) (Auto) 81 % (31-73) Lymphocytes (%) (Auto) 15 % (24-48) Monocytes (%) (Auto) 3 % (0-9) Eosinophils (%) (Auto) 0 % (0-3) Basophils (%) (Auto) 0 % (0-3) Neutrophils # (Auto) 15.8 x10^3/uL (1.8-7.7) Lymphocytes # (Auto) 2.9 x10^3/uL (1.0-4.8) Monocytes # (Auto) 0.6 x10^3/uL (0.0-1.1) Eosinophils # (Auto) 0.1 x10^3/uL (0.0-0.7) Basophils # (Auto) 0.1 x10^3/uL (0.0-0.2) Segmented Neutrophils % 65 % (35-66) Band Neutrophils % 11 % (0-9) Lymphocytes % 17 % (24-48) Monocytes % 5 % (0-10) Basophils % 1 % (0-3) Metamyelocytes % 1 % (0-0) Platelet Estimate Adequate (ADEQUATE) Prothrombin Time 15.3 SEC (11.7-14.0) Prothromb Time International Ratio 1.2 (0.8-1.1) D-Dimer (Keisha) 12.31 ug/mlFEU (0.00-0.50) Sodium Level 139 mmol/L (136-145) Potassium Level 2.8 mmol/L (3.5-5.1) Chloride Level 100 mmol/L (98-107) Carbon Dioxide Level 20 mmol/L (21-32) Anion Gap 19 (6-14) 17 mmol/L (6-14) Blood Urea Nitrogen 20 mg/dL (8-26) Creatinine 1.8 mg/dL (0.7-1.3) Estimated GFR (Cockcroft-Gault) 38.2 BUN/Creatinine Ratio 11 (6-20) Glucose Level 265 mg/dL (70-99) 264 mg/dL (70-99) Calcium Level 8.6 mg/dL (8.5-10.1) Magnesium Level 2.7 mg/dL (1.8-2.4) Total Bilirubin 0.8 mg/dL (0.2-1.0) Aspartate Amino Transf (AST/SGOT) 159 U/L (15-37) Alanine Aminotransferase (ALT/SGPT) 190 U/L (16-63) Alkaline Phosphatase 109 U/L (46-116) Creatine Kinase 213 U/L (39-308) Troponin I Quantitative 0.228 ng/mL (0.000-0.055) RU-Mij-E-Type Natriuretic Peptide 306 pg/mL (0-124) Total Protein 6.9 g/dL (6.4-8.2) Albumin 3.5 g/dL (3.4-5.0) Albumin/Globulin Ratio 1.0 (1.0-1.7) Lipase 115 U/L (73-393) Bedside Hemoglobin 17.3 g/dL (14-18) Bedside Hematocrit 51 % (37-52) Bedside Sodium 133 mmol/L (135-145) Bedside Potassium 6.5 mmol/L (3.5-5.0) Bedside Chloride 101 mmol/L (98-110) Bedside Total CO2 23 mmol/L (23-32) Bedside Blood Urea Nitrogen 31 mg/dL (8-26) Bedside Creatinine 1.6 mg/dL (0.5-1.4) Lactic Acid Level 9.5 mmol/L (0.4-2.0) Bedside Ionized Calcium (Clover) 0.99 mmol/L (1.13-1.32) Triglycerides Level 102 mg/dL (0-150) Cholesterol Level 148 mg/dL (0-200) LDL Cholesterol, Calculated 84 mg/dL (0-100) VLDL Cholesterol, Calculated 20 mg/dL (0-40) Non-HDL Cholesterol Calculated 104 mg/dL (0-129) HDL Cholesterol 44 mg/dL (40-60) Cholesterol/HDL Ratio 3.4 Thyroid Stimulating Hormone (TSH) 10.832 uIU/mL (0.358-3.74) Bedside Troponin I 0.09 ng/ml (<0.08) Test 01/23/19 17:00 01/23/19 20:13 01/23/19 20:15 01/23/19 20:18 O2 Saturation 99 % (92-99) 98 % (92-99) Arterial Blood pH 7.33 (7.35-7.45) 7.38 (7.35-7.45) Arterial Blood pCO2 at Patient Temp 39 mmHg (35-46) 30 mmHg (35-46) Arterial Blood pO2 at Patient Temp 441 mmHg (65-108) 136 mmHg (65-108) Arterial Blood HCO3 20 mmol/L (21-28) 17 mmol/L (21-28) Arterial Blood Base Excess -6 mmol/L (-3-3) -6 mmol/L (-3-3) FiO2 100 50 Sodium Level 139 mmol/L (136-145) Potassium Level 4.8 mmol/L (3.5-5.1) Chloride Level 103 mmol/L (98-107) Carbon Dioxide Level 19 mmol/L (21-32) Anion Gap 17 (6-14) Blood Urea Nitrogen 21 mg/dL (8-26) Creatinine 1.1 mg/dL (0.7-1.3) Estimated GFR (Cockcroft-Gault) 67.4 Glucose Level 180 mg/dL (70-99) Lactic Acid Level 3.1 mmol/L (0.4-2.0) Calcium Level 8.2 mg/dL (8.5-10.1) Magnesium Level 1.9 mg/dL (1.8-2.4) Troponin I Quantitative 11.377 ng/mL (0.000-0.055) Arterial Blood pH (Temp corrected) 7.37 Arterial Blood pCO2 (Temp correct) 31 mmHg Arterial Blood pO2 (Temp corrected) 140 mmHg Glucose (Fingerstick) 167 mg/dL (70-99) Test 01/23/19 22:00 01/23/19 23:05 01/24/19 00:00 01/24/19 00:01 Urine Collection Type Unknown Urine Color Yellow Urine Clarity Clear Urine pH 5.0 Urine Specific [place] Pool >=1.030 Urine Protein 100 mg/dL (NEG-TRACE) Urine Glucose (UA) 100 mg/dL (NEG) Urine Ketones (Stick) 15 mg/dL (NEG) Urine Blood Large (NEG) Urine Nitrite Negative (NEG) Urine Bilirubin Negative (NEG) Urine Urobilinogen Dipstick 0.2 mg/dL (0.2 mg/dL) Urine Leukocyte Esterase Negative (NEG) Urine RBC 20-40 /HPF (0-2) Urine WBC Occ /HPF (0-4) Urine Bacteria 0 /HPF (0-FEW) Urine Hyaline Casts Occasional /HPF Urine Mucus Slight /LPF Glucose (Fingerstick) 166 mg/dL (70-99) 212 mg/dL (70-99) 190 mg/dL (70-99) Urine Opiates Screen Neg (NEG) Urine Methadone Screen Neg (NEG) Urine Barbiturates Neg (NEG) Urine Phencyclidine Screen Neg (NEG) Urine Amphetamine/Methamphetamine Neg (NEG) Urine Benzodiazepines Screen Pos (NEG) Urine Cocaine Screen Neg (NEG) Urine Cannabinoids Screen Pos (NEG) Urine Ethyl Alcohol Neg (NEG) White Blood Count 25.5 x10^3/uL (4.0-11.0) Red Blood Count 4.82 x10^6/uL (4.30-5.70) Hemoglobin 15.3 g/dL (13.0-17.5) Hematocrit 44.8 % (39.0-53.0) Mean Corpuscular Volume 93 fL (79-100) Mean Corpuscular Hemoglobin 32 pg (25-35) Mean Corpuscular Hemoglobin Concent 34 g/dL (31-37) Red Cell Distribution Width 13.2 % (11.5-14.5) Platelet Count 160 x10^3/uL (140-400) Neutrophils (%) (Auto) 95 % (31-73) Lymphocytes (%) (Auto) 2 % (24-48) Monocytes (%) (Auto) 3 % (0-9) Eosinophils (%) (Auto) 0 % (0-3) Basophils (%) (Auto) 0 % (0-3) Neutrophils # (Auto) 24.2 x10^3/uL (1.8-7.7) Lymphocytes # (Auto) 0.4 x10^3/uL (1.0-4.8) Monocytes # (Auto) 0.8 x10^3/uL (0.0-1.1) Eosinophils # (Auto) 0.0 x10^3/uL (0.0-0.7) Basophils # (Auto) 0.1 x10^3/uL (0.0-0.2) Prothrombin Time 19.1 SEC (11.7-14.0) Prothromb Time International Ratio 1.6 (0.8-1.1) Activated Partial Thromboplast Time 47 SEC (24-38) Sodium Level 139 mmol/L (136-145) Potassium Level 4.1 mmol/L (3.5-5.1) Chloride Level 106 mmol/L (98-107) Carbon Dioxide Level 20 mmol/L (21-32) Anion Gap 13 (6-14) Blood Urea Nitrogen 19 mg/dL (8-26) Creatinine 1.1 mg/dL (0.7-1.3) Estimated GFR (Cockcroft-Gault) 67.4 Glucose Level 189 mg/dL (70-99) Calcium Level 7.5 mg/dL (8.5-10.1) Phosphorus Level 3.5 mg/dL (2.6-4.7) Magnesium Level 2.2 mg/dL (1.8-2.4) Ionized Calcium 1.02 mmol/L (1.13-1.32) Test 01/24/19 01:05 01/24/19 02:16 01/24/19 03:08 01/24/19 04:09 Glucose (Fingerstick) 86 mg/dL (70-99) 101 mg/dL (70-99) 137 mg/dL (70-99) 127 mg/dL (70-99) Test 01/24/19 05:41 01/24/19 05:45 01/24/19 06:11 01/24/19 08:30 Glucose (Fingerstick) 118 mg/dL (70-99) 110 mg/dL (70-99) White Blood Count 22.6 x10^3/uL (4.0-11.0) Red Blood Count 4.76 x10^6/uL (4.30-5.70) Hemoglobin 15.1 g/dL (13.0-17.5) Hematocrit 44.5 % (39.0-53.0) Mean Corpuscular Volume 93 fL (79-100) Mean Corpuscular Hemoglobin 32 pg (25-35) Mean Corpuscular Hemoglobin Concent 34 g/dL (31-37) Red Cell Distribution Width 13.5 % (11.5-14.5) Platelet Count 138 x10^3/uL (140-400) Neutrophils (%) (Auto) 92 % (31-73) Lymphocytes (%) (Auto) 4 % (24-48) Monocytes (%) (Auto) 4 % (0-9) Eosinophils (%) (Auto) 0 % (0-3) Basophils (%) (Auto) 0 % (0-3) Neutrophils # (Auto) 20.8 x10^3/uL (1.8-7.7) Lymphocytes # (Auto) 0.9 x10^3/uL (1.0-4.8) Monocytes # (Auto) 1.0 x10^3/uL (0.0-1.1) Eosinophils # (Auto) 0.0 x10^3/uL (0.0-0.7) Basophils # (Auto) 0.0 x10^3/uL (0.0-0.2) Prothrombin Time 16.4 SEC (11.7-14.0) Prothromb Time International Ratio 1.4 (0.8-1.1) Activated Partial Thromboplast Time 39 SEC (24-38) Sodium Level 142 mmol/L (136-145) Potassium Level 3.9 mmol/L (3.5-5.1) Chloride Level 110 mmol/L (98-107) Carbon Dioxide Level 22 mmol/L (21-32) Anion Gap 10 (6-14) Blood Urea Nitrogen 16 mg/dL (8-26) Creatinine 0.9 mg/dL (0.7-1.3) Estimated GFR (Cockcroft-Gault) 85.0 Glucose Level 134 mg/dL (70-99) Calcium Level 7.6 mg/dL (8.5-10.1) Ionized Calcium 1.06 mmol/L (1.13-1.32) Phosphorus Level 2.8 mg/dL (2.6-4.7) Magnesium Level 2.1 mg/dL (1.8-2.4) Total Bilirubin 1.8 mg/dL (0.2-1.0) Direct Bilirubin 0.5 mg/dL (0.0-0.2) Aspartate Amino Transf (AST/SGOT) 294 U/L (15-37) Alanine Aminotransferase (ALT/SGPT) 181 U/L (16-63) Alkaline Phosphatase 68 U/L (46-116) Troponin I Quantitative 27.704 ng/mL (0.000-0.055) Total Protein 5.6 g/dL (6.4-8.2) Albumin 2.9 g/dL (3.4-5.0) Free Thyroxine 1.25 ng/dL (0.76-1.46) O2 Saturation 96 % (92-99) Arterial Blood pH 7.24 (7.35-7.45) Arterial Blood pH (Temp corrected) 7.27 Arterial Blood pCO2 at Patient Temp 48 mmHg (35-46) Arterial Blood pCO2 (Temp correct) 43 mmHg Arterial Blood pO2 at Patient Temp 94 mmHg (65-108) Arterial Blood pO2 (Temp corrected) 82 mmHg Arterial Blood HCO3 20 mmol/L (21-28) Arterial Blood Base Excess -8 mmol/L (-3-3) FiO2 40 Test 01/24/19 08:36 Glucose (Fingerstick) 94 mg/dL (70-99) Laboratory Tests Test 01/23/19 15:15 01/23/19 15:20 01/23/19 15:25 01/23/19 15:26 O2 Saturation 97 % (92-99) Arterial Blood pH 7.04 (7.35-7.45) Arterial Blood pCO2 at Patient Temp 42 mmHg (35-46) Arterial Blood pO2 at Patient Temp 125 mmHg (65-108) Arterial Blood HCO3 11 mmol/L (21-28) Arterial Blood Base Excess -19 mmol/L (-3-3) FiO2 100 White Blood Count 19.5 x10^3/uL (4.0-11.0) Red Blood Count 5.25 x10^6/uL (4.30-5.70) Hemoglobin 16.7 g/dL (13.0-17.5) Hematocrit 49.9 % (39.0-53.0) Mean Corpuscular Volume 95 fL (79-100) Mean Corpuscular Hemoglobin 32 pg (25-35) Mean Corpuscular Hemoglobin Concent 33 g/dL (31-37) Red Cell Distribution Width 13.7 % (11.5-14.5) Platelet Count 164 x10^3/uL (140-400) Neutrophils (%) (Auto) 81 % (31-73) Lymphocytes (%) (Auto) 15 % (24-48) Monocytes (%) (Auto) 3 % (0-9) Eosinophils (%) (Auto) 0 % (0-3) Basophils (%) (Auto) 0 % (0-3) Neutrophils # (Auto) 15.8 x10^3/uL (1.8-7.7) Lymphocytes # (Auto) 2.9 x10^3/uL (1.0-4.8) Monocytes # (Auto) 0.6 x10^3/uL (0.0-1.1) Eosinophils # (Auto) 0.1 x10^3/uL (0.0-0.7) Basophils # (Auto) 0.1 x10^3/uL (0.0-0.2) Segmented Neutrophils % 65 % (35-66) Band Neutrophils % 11 % (0-9) Lymphocytes % 17 % (24-48) Monocytes % 5 % (0-10) Basophils % 1 % (0-3) Metamyelocytes % 1 % (0-0) Platelet Estimate Adequate (ADEQUATE) Prothrombin Time 15.3 SEC (11.7-14.0) Prothromb Time International Ratio 1.2 (0.8-1.1) D-Dimer (Keisha) 12.31 ug/mlFEU (0.00-0.50) Sodium Level 139 mmol/L (136-145) Potassium Level 2.8 mmol/L (3.5-5.1) Chloride Level 100 mmol/L (98-107) Carbon Dioxide Level 20 mmol/L (21-32) Anion Gap 19 (6-14) 17 mmol/L (6-14) Blood Urea Nitrogen 20 mg/dL (8-26) Creatinine 1.8 mg/dL (0.7-1.3) Estimated GFR (Cockcroft-Gault) 38.2 BUN/Creatinine Ratio 11 (6-20) Glucose Level 265 mg/dL (70-99) 264 mg/dL (70-99) Calcium Level 8.6 mg/dL (8.5-10.1) Magnesium Level 2.7 mg/dL (1.8-2.4) Total Bilirubin 0.8 mg/dL (0.2-1.0) Aspartate Amino Transf (AST/SGOT) 159 U/L (15-37) Alanine Aminotransferase (ALT/SGPT) 190 U/L (16-63) Alkaline Phosphatase 109 U/L (46-116) Creatine Kinase 213 U/L (39-308) Troponin I Quantitative 0.228 ng/mL (0.000-0.055) HH-Vis-P-Type Natriuretic Peptide 306 pg/mL (0-124) Total Protein 6.9 g/dL (6.4-8.2) Albumin 3.5 g/dL (3.4-5.0) Albumin/Globulin Ratio 1.0 (1.0-1.7) Lipase 115 U/L (73-393) Bedside Hemoglobin 17.3 g/dL (14-18) Bedside Hematocrit 51 % (37-52) Bedside Sodium 133 mmol/L (135-145) Bedside Potassium 6.5 mmol/L (3.5-5.0) Bedside Chloride 101 mmol/L (98-110) Bedside Total CO2 23 mmol/L (23-32) Bedside Blood Urea Nitrogen 31 mg/dL (8-26) Bedside Creatinine 1.6 mg/dL (0.5-1.4) Lactic Acid Level 9.5 mmol/L (0.4-2.0) Bedside Ionized Calcium (Clover) 0.99 mmol/L (1.13-1.32) Triglycerides Level 102 mg/dL (0-150) Cholesterol Level 148 mg/dL (0-200) LDL Cholesterol, Calculated 84 mg/dL (0-100) VLDL Cholesterol, Calculated 20 mg/dL (0-40) Non-HDL Cholesterol Calculated 104 mg/dL (0-129) HDL Cholesterol 44 mg/dL (40-60) Cholesterol/HDL Ratio 3.4 Thyroid Stimulating Hormone (TSH) 10.832 uIU/mL (0.358-3.74) Bedside Troponin I 0.09 ng/ml (<0.08) Test 01/23/19 17:00 01/23/19 20:13 01/23/19 20:15 01/23/19 20:18 O2 Saturation 99 % (92-99) 98 % (92-99) Arterial Blood pH 7.33 (7.35-7.45) 7.38 (7.35-7.45) Arterial Blood pCO2 at Patient Temp 39 mmHg (35-46) 30 mmHg (35-46) Arterial Blood pO2 at Patient Temp 441 mmHg (65-108) 136 mmHg (65-108) Arterial Blood HCO3 20 mmol/L (21-28) 17 mmol/L (21-28) Arterial Blood Base Excess -6 mmol/L (-3-3) -6 mmol/L (-3-3) FiO2 100 50 Sodium Level 139 mmol/L (136-145) Potassium Level 4.8 mmol/L (3.5-5.1) Chloride Level 103 mmol/L (98-107) Carbon Dioxide Level 19 mmol/L (21-32) Anion Gap 17 (6-14) Blood Urea Nitrogen 21 mg/dL (8-26) Creatinine 1.1 mg/dL (0.7-1.3) Estimated GFR (Cockcroft-Gault) 67.4 Glucose Level 180 mg/dL (70-99) Lactic Acid Level 3.1 mmol/L (0.4-2.0) Calcium Level 8.2 mg/dL (8.5-10.1) Magnesium Level 1.9 mg/dL (1.8-2.4) Troponin I Quantitative 11.377 ng/mL (0.000-0.055) Arterial Blood pH (Temp corrected) 7.37 Arterial Blood pCO2 (Temp correct) 31 mmHg Arterial Blood pO2 (Temp corrected) 140 mmHg Glucose (Fingerstick) 167 mg/dL (70-99) Test 01/23/19 22:00 01/23/19 23:05 01/24/19 00:00 01/24/19 00:01 Urine Collection Type Unknown Urine Color Yellow Urine Clarity Clear Urine pH 5.0 Urine Specific [place] >=1.030 Urine Protein 100 mg/dL (NEG-TRACE) Urine Glucose (UA) 100 mg/dL (NEG) Urine Ketones (Stick) 15 mg/dL (NEG) Urine Blood Large (NEG) Urine Nitrite Negative (NEG) Urine Bilirubin Negative (NEG) Urine Urobilinogen Dipstick 0.2 mg/dL (0.2 mg/dL) Urine Leukocyte Esterase Negative (NEG) Urine RBC 20-40 /HPF (0-2) Urine WBC Occ /HPF (0-4) Urine Bacteria 0 /HPF (0-FEW) Urine Hyaline Casts Occasional /HPF Urine Mucus Slight /LPF Glucose (Fingerstick) 166 mg/dL (70-99) 212 mg/dL (70-99) 190 mg/dL (70-99) Urine Opiates Screen Neg (NEG) Urine Methadone Screen Neg (NEG) Urine Barbiturates Neg (NEG) Urine Phencyclidine Screen Neg (NEG) Urine Amphetamine/Methamphetamine Neg (NEG) Urine Benzodiazepines Screen Pos (NEG) Urine Cocaine Screen Neg (NEG) Urine Cannabinoids Screen Pos (NEG) Urine Ethyl Alcohol Neg (NEG) White Blood Count 25.5 x10^3/uL (4.0-11.0) Red Blood Count 4.82 x10^6/uL (4.30-5.70) Hemoglobin 15.3 g/dL (13.0-17.5) Hematocrit 44.8 % (39.0-53.0) Mean Corpuscular Volume 93 fL (79-100) Mean Corpuscular Hemoglobin 32 pg (25-35) Mean Corpuscular Hemoglobin Concent 34 g/dL (31-37) Red Cell Distribution Width 13.2 % (11.5-14.5) Platelet Count 160 x10^3/uL (140-400) Neutrophils (%) (Auto) 95 % (31-73) Lymphocytes (%) (Auto) 2 % (24-48) Monocytes (%) (Auto) 3 % (0-9) Eosinophils (%) (Auto) 0 % (0-3) Basophils (%) (Auto) 0 % (0-3) Neutrophils # (Auto) 24.2 x10^3/uL (1.8-7.7) Lymphocytes # (Auto) 0.4 x10^3/uL (1.0-4.8) Monocytes # (Auto) 0.8 x10^3/uL (0.0-1.1) Eosinophils # (Auto) 0.0 x10^3/uL (0.0-0.7) Basophils # (Auto) 0.1 x10^3/uL (0.0-0.2) Prothrombin Time 19.1 SEC (11.7-14.0) Prothromb Time International Ratio 1.6 (0.8-1.1) Activated Partial Thromboplast Time 47 SEC (24-38) Sodium Level 139 mmol/L (136-145) Potassium Level 4.1 mmol/L (3.5-5.1) Chloride Level 106 mmol/L (98-107) Carbon Dioxide Level 20 mmol/L (21-32) Anion Gap 13 (6-14) Blood Urea Nitrogen 19 mg/dL (8-26) Creatinine 1.1 mg/dL (0.7-1.3) Estimated GFR (Cockcroft-Gault) 67.4 Glucose Level 189 mg/dL (70-99) Calcium Level 7.5 mg/dL (8.5-10.1) Phosphorus Level 3.5 mg/dL (2.6-4.7) Magnesium Level 2.2 mg/dL (1.8-2.4) Ionized Calcium 1.02 mmol/L (1.13-1.32) Test 01/24/19 01:05 01/24/19 02:16 01/24/19 03:08 01/24/19 04:09 Glucose (Fingerstick) 86 mg/dL (70-99) 101 mg/dL (70-99) 137 mg/dL (70-99) 127 mg/dL (70-99) Test 01/24/19 05:41 01/24/19 05:45 01/24/19 06:11 01/24/19 08:30 Glucose (Fingerstick) 118 mg/dL (70-99) 110 mg/dL (70-99) White Blood Count 22.6 x10^3/uL (4.0-11.0) Red Blood Count 4.76 x10^6/uL (4.30-5.70) Hemoglobin 15.1 g/dL (13.0-17.5) Hematocrit 44.5 % (39.0-53.0) Mean Corpuscular Volume 93 fL (79-100) Mean Corpuscular Hemoglobin 32 pg (25-35) Mean Corpuscular Hemoglobin Concent 34 g/dL (31-37) Red Cell Distribution Width 13.5 % (11.5-14.5) Platelet Count 138 x10^3/uL (140-400) Neutrophils (%) (Auto) 92 % (31-73) Lymphocytes (%) (Auto) 4 % (24-48) Monocytes (%) (Auto) 4 % (0-9) Eosinophils (%) (Auto) 0 % (0-3) Basophils (%) (Auto) 0 % (0-3) Neutrophils # (Auto) 20.8 x10^3/uL (1.8-7.7) Lymphocytes # (Auto) 0.9 x10^3/uL (1.0-4.8) Monocytes # (Auto) 1.0 x10^3/uL (0.0-1.1) Eosinophils # (Auto) 0.0 x10^3/uL (0.0-0.7) Basophils # (Auto) 0.0 x10^3/uL (0.0-0.2) Prothrombin Time 16.4 SEC (11.7-14.0) Prothromb Time International Ratio 1.4 (0.8-1.1) Activated Partial Thromboplast Time 39 SEC (24-38) Sodium Level 142 mmol/L (136-145) Potassium Level 3.9 mmol/L (3.5-5.1) Chloride Level 110 mmol/L (98-107) Carbon Dioxide Level 22 mmol/L (21-32) Anion Gap 10 (6-14) Blood Urea Nitrogen 16 mg/dL (8-26) Creatinine 0.9 mg/dL (0.7-1.3) Estimated GFR (Cockcroft-Gault) 85.0 Glucose Level 134 mg/dL (70-99) Calcium Level 7.6 mg/dL (8.5-10.1) Ionized Calcium 1.06 mmol/L (1.13-1.32) Phosphorus Level 2.8 mg/dL (2.6-4.7) Magnesium Level 2.1 mg/dL (1.8-2.4) Total Bilirubin 1.8 mg/dL (0.2-1.0) Direct Bilirubin 0.5 mg/dL (0.0-0.2) Aspartate Amino Transf (AST/SGOT) 294 U/L (15-37) Alanine Aminotransferase (ALT/SGPT) 181 U/L (16-63) Alkaline Phosphatase 68 U/L (46-116) Troponin I Quantitative 27.704 ng/mL (0.000-0.055) Total Protein 5.6 g/dL (6.4-8.2) Albumin 2.9 g/dL (3.4-5.0) Free Thyroxine 1.25 ng/dL (0.76-1.46) O2 Saturation 96 % (92-99) Arterial Blood pH 7.24 (7.35-7.45) Arterial Blood pH (Temp corrected) 7.27 Arterial Blood pCO2 at Patient Temp 48 mmHg (35-46) Arterial Blood pCO2 (Temp correct) 43 mmHg Arterial Blood pO2 at Patient Temp 94 mmHg (65-108) Arterial Blood pO2 (Temp corrected) 82 mmHg Arterial Blood HCO3 20 mmol/L (21-28) Arterial Blood Base Excess -8 mmol/L (-3-3) FiO2 40 Test 01/24/19 08:36 Glucose (Fingerstick) 94 mg/dL (70-99) Medications Current Medications Sodium Chloride 1,000 ml @ 1,000 mls/hr Q1H IV Last administered on 01/23/19at 17:23; Start 01/23/19 at 15:13; Stop 01/23/19 at 16:12; Status DC Sodium Bicarbonate (Sodium Bicarb Adult 8.4% Syr) 100 meq 1X ONCE IV Last administered on 01/23/19at 17:23; Start 01/23/19 at 15:30; Stop 01/23/19 at 15:59; Status DC Midazolam HCl (Versed) 5 mg STK-MED ONCE .ROUTE ; Start 01/23/19 at 15:25; Stop 01/23/19 at 15:25; Status DC Propofol 50 ml @ As Directed STK-MED ONCE IV ; Start 01/23/19 at 15:25; Stop 01/23/19 at 15:25; Status DC Calcium Gluconate (Calcium Gluconate) 1,000 mg 1X ONCE IVP Last administered on 01/23/19at 16:12; Start 01/23/19 at 16:00; Stop 01/23/19 at 16:01; Status DC Dextrose (Dextrose 50%-Water Syringe) 25 gm 1X ONCE IV ; Start 01/23/19 at 15:45; Stop 01/23/19 at 15:53; Status DC Insulin Human Regular (HumuLIN R VIAL) 10 unit 1X ONCE IV ; Start 01/23/19 at 15:45; Stop 01/23/19 at 15:53; Status DC Iohexol (Omnipaque 350 Mg/ml) 90 ml 1X ONCE IV Last administered on 01/23/19at 16:08; Start 01/23/19 at 15:45; Stop 01/23/19 at 16:00; Status DC Amiodarone HCl 900 mg/Dextrose 518 ml @ 0 mls/hr CONT PRN IV SEE I/O RECORD Last administered on 01/23/19at 17:06; Start 01/23/19 at 16:00; Stop 01/23/19 at 17:06; Status DC Piperacillin Sod/ Tazobactam Sod 3.375 gm/Sodium Chloride 50 ml @ 100 mls/hr 1X ONCE IV Last administered on 01/23/19at 22:19; Start 01/23/19 at 16:00; Stop 01/23/19 at 16:29; Status DC Vancomycin HCl 250 ml @ 250 mls/hr 1X ONCE IV ; Start 01/23/19 at 16:00; Stop 01/23/19 at 16:24; Status DC Fentanyl Citrate (Fentanyl 2ml Vial) 100 mcg 1X ONCE IV ; Start 01/23/19 at 16:15; Stop 01/23/19 at 16:24; Status DC Midazolam HCl (Versed) 2 mg 1X ONCE IV ; Start 01/23/19 at 16:15; Stop 01/23/19 at 16:24; Status DC Magnesium Sulfate/ Dextrose 100 ml @ 100 mls/hr 1X ONCE IV ; Start 01/23/19 at 16:15; Stop 01/23/19 at 17:14; Status DC Buspirone HCl (Buspar) 30 mg Q8H NG Last administered on 01/24/19at 08:29; Start 01/23/19 at 17:00; Stop 01/25/19 at 09:01 Acetaminophen (Tylenol) 650 mg Q4H NG Last administered on 01/24/19at 09:16; Start 01/23/19 at 16:15 Artificial Tears (Artificial Tears) 1 drop Q6HRS OU Last administered on 01/24/19at 06:12; Start 01/23/19 at 18:00 Artificial Tears (Artificial Tears) 1 drop PRN Q15MIN PRN OU DRY EYE; Start 01/23/19 at 16:15 Heparin Sodium (Porcine) (Heparin Sodium) 5,000 unit BID SQ ; Start 01/23/19 at 21:00; Stop 01/23/19 at 16:53; Status DC Pantoprazole Sodium (PROTONIX VIAL for IV PUSH) 40 mg DAILY IVP ; Start 01/24/19 at 09:00; Stop 01/23/19 at 20:27; Status DC Fentanyl Citrate 30 ml @ 0 mls/hr CONT PRN IV PER PROTOCOL.; Start 01/23/19 at 16:15; Stop 01/23/19 at 18:01; Status DC Propofol 100 ml @ 0 mls/hr CONT PRN IV PER PROTOCOL.; Start 01/23/19 at 16:15; Stop 01/23/19 at 20:27; Status DC Midazolam HCl 100 ml @ 0 mls/hr CONT PRN IV PER PROTOCOL. Last administered on 01/23/19at 16:50; Start 01/23/19 at 16:15; Stop 01/23/19 at 20:26; Status DC Vecuronium [place] (Norcuron Bolus) 7 mg PRN Q1HR PRN IV SHIVERING; Start 01/23/19 at 16:15; Stop 01/23/19 at 20:28; Status DC Pantoprazole Sodium (PROTONIX VIAL for IV PUSH) 40 mg DAILYAC IVP ; Start 01/24/19 at 07:30; Stop 01/23/19 at 16:25; Status DC Pantoprazole Sodium (PROTONIX VIAL for IV PUSH) 40 mg 1X ONCE IVP Last administered on 01/23/19at 23:43; Start 01/23/19 at 17:00; Stop 01/23/19 at 17:01; Status DC Enoxaparin Sodium (Lovenox 40mg Syringe) 40 mg Q24H SQ ; Start 01/23/19 at 21:00; Stop 01/23/19 at 23:59; Status DC Sodium Chloride 1,000 ml @ 150 mls/hr Q6H40M IV Last administered on 01/24/19at 04:43; Start 01/23/19 at 16:11; Stop 01/24/19 at 16:10 Potassium Chloride/Water 100 ml @ 100 mls/hr Q1H IV Last administered on 01/23/19at 19:06; Start 01/23/19 at 17:00; Stop 01/23/19 at 20:59; Status DC Potassium Chloride/Water 100 ml @ 100 mls/hr Q1H IV ; Start 01/23/19 at 22:00; Stop 01/23/19 at 23:59; Status DC Vancomycin HCl 1.75 gm/Sodium Chloride 500 ml @ 250 mls/hr 1X ONCE IV Last administered on 01/23/19at 23:42; Start 01/23/19 at 18:00; Stop 01/23/19 at 19:59; Status DC Aspirin (Aspirin Rectal Supp) 300 mg 1X ONCE RI Last administered on 01/23/19at 20:27; Start 01/23/19 at 17:00; Stop 01/23/19 at 17:01; Status DC Lidocaine HCl (Lidocaine 1% 20ml Vial) 20 ml STK-MED ONCE .ROUTE ; Start 01/23/19 at 16:37; Stop 01/23/19 at 16:37; Status DC Heparin Sodium/ Sodium Chloride 1,000 ml @ As Directed STK-MED ONCE .ROUTE ; Start 01/23/19 at 16:37; Stop 01/23/19 at 16:38; Status DC Heparin Sodium/ Dextrose 500 ml @ 0 mls/hr CONT PRN IV SEE I/O RECORD; Start 01/23/19 at 17:00; Stop 01/23/19 at 23:27; Status DC Midazolam HCl (Versed) 5 mg STK-MED ONCE .ROUTE ; Start 01/23/19 at 17:00; Stop 01/23/19 at 17:00; Status DC Sodium Chloride 1,000 ml @ 1,000 mls/hr 1X ONCE IV Last administered on 01/23/19at 18:58; Start 01/23/19 at 17:30; Stop 01/23/19 at 18:29; Status DC Propofol 50 ml @ 2.1 mls/hr 1X STAT IV Last administered on 01/23/19at 18:51; Start 01/23/19 at 17:17; Stop 01/23/19 at 20:27; Status DC Midazolam HCl (Versed) 5 mg 1X ONCE IV Last administered on 01/23/19at 18:18; Start 01/23/19 at 17:30; Stop 01/23/19 at 17:31; Status DC Fentanyl Citrate 30 ml @ 0 mls/hr CONT PRN PRN IV PER PROTOCOL; Start 01/23/19 at 17:45; Status Cancel Naloxone HCl (Narcan) 0.4 mg PRN Q2MIN PRN IV SEE INSTRUCTIONS; Start 01/23/19 at 17:45 Sodium Chloride 1,000 ml @ 25 mls/hr Q24H IV Last administered on 01/23/19at 22:20; Start 01/23/19 at 17:33 Midazolam HCl (Versed) 5 mg 1X ONCE IV Last administered on 01/23/19 19:02; Start 01/23/19 at 18:15; Stop 01/23/19 at 18:16; Status DC Amiodarone HCl (Cordarone) 150 mg STK-MED ONCE .ROUTE ; Start 01/23/19 at 18:11; Stop 01/23/19 at 18:12; Status DC Iodixanol (Visipaque 320) 100 ml STK-MED ONCE .ROUTE ; Start 01/23/19 at 18:19; Stop 01/23/19 at 18:19; Status DC Bivalirudin (Angiomax) 250 mg STK-MED ONCE IV ; Start 01/23/19 at 18:20; Stop 01/23/19 at 18:20; Status DC Nitroglycerin (Nitroglycerin) 200 mcg 1X ONCE IART Last administered on 01/23/19 19:10; Start 01/23/19 at 18:45; Stop 01/23/19 at 18:56; Status DC Heparin Sodium/ Sodium Chloride (HEPARIN for ARTERIAL LINE FLUSH) 1,000 unit 1X ONCE IART Last administered on 01/23/19 19:10; Start 01/23/19 at 18:45; Stop 01/23/19 at 18:56; Status DC Heparin Sodium/ Sodium Chloride (HEPARIN for ARTERIAL LINE FLUSH) 1,000 unit 1X ONCE IART Last administered on 01/23/19 19:10; Start 01/23/19 at 18:45; Stop 01/23/19 at 18:56; Status DC Iodixanol (Visipaque 320) 100 ml 1X ONCE IART Last administered on 01/23/19 19:10; Start 01/23/19 at 18:45; Stop 01/23/19 at 18:56; Status DC Bivalirudin (Angiomax) 250 mg 1X ONCE IV Last administered on 01/23/19 19:10; Start 01/23/19 at 18:45; Stop 01/23/19 at 18:56; Status DC Lidocaine HCl (Lidocaine 1% 20ml Vial) 10 ml 1X ONCE INJ Last administered on 01/23/19 19:10; Start 01/23/19 at 18:45; Stop 01/23/19 at 18:56; Status DC Amiodarone HCl 150 mg/Dextrose 103 ml @ 0 mls/hr 1X ONCE IV Last administered on 01/23/19at 19:10; Start 01/23/19 at 19:00; Stop 01/23/19 at 19:01; Status DC Info (CONTRAST GIVEN -- Rx MONITORING) 1 each PRN DAILY PRN MC SEE COMMENTS; Start 01/23/19 at 19:00; Stop 01/25/19 at 18:59 Heparin Sodium/ Sodium Chloride 500 ml @ As Directed STK-MED ONCE .ROUTE ; Start 01/23/19 at 19:02; Stop 01/23/19 at 19:03; Status DC Sodium Chloride (Normal Saline Flush) 3 ml QSHIFT PRN IV AFTER MEDS AND BLOOD DRAWS; Start 01/23/19 at 19:30 Sodium Chloride 1,000 ml @ 75 mls/hr [id number] IV Last administered on 01/23/19at 20:27; Start 01/23/19 at 19:17; Stop 01/24/19 at 03:16; Status DC Aspirin (Ecotrin) 325 mg DAILYWBKFT PO Last administered on 01/24/19at 08:29; Start 01/24/19 at 08:00 Clopidogrel Bisulfate (Plavix) 75 mg DAILYWBKFT PO Last administered on 01/24/19at 09:16; Start 01/24/19 at 08:00 Acetaminophen (Tylenol) 650 mg PRN Q6HRS PRN PO MILD PAIN / TEMP; Start 01/23/19 at 19:30 Fentanyl Citrate (Fentanyl 2ml Vial) 50 mcg PRN Q1HR PRN IV MODERATE OR SEVERE PAIN; Start 01/23/19 at 19:30 Nitroglycerin (Nitrostat) 0.4 mg PRN Q5MIN PRN SL CHEST PAIN; Start 01/23/19 at 19:30 Amiodarone HCl 150 mg/Dextrose 103 ml @ 600 mls/hr 1X PRN PRN IV FOR VENTRICULAR TACHYCARDIA; Start 01/23/19 at 19:30 Lidocaine HCl (Lidocaine HCl 2% Abboject) 100 mg 1X PRN PRN IV FOR VENTRICULAR TACHYCARDIA; Start 01/23/19 at 19:30 Atropine Sulfate (ATROPINE 0.5mg SYRINGE) 0.5 mg PRN 1X PRN IV BRADYCARDIA; Start 01/23/19 at 19:30 Fentanyl Citrate (Fentanyl 2ml Vial) 100 mcg 1X ONCE IV Last administered on 01/23/19 20:27; Start 01/23/19 at 19:45; Stop 01/23/19 at 20:25; Status DC Midazolam HCl (Versed) 2 mg 1X ONCE IV ; Start 01/23/19 at 19:45; Stop 01/23/19 at 20:25; Status DC Magnesium Sulfate/ Dextrose 100 ml @ 100 mls/hr 1X ONCE IV Last administered on 01/23/19at 20:46; Start 01/23/19 at 19:45; Stop 01/23/19 at 20:44; Status DC Heparin Sodium (Porcine) (Heparin Sodium) 5,000 unit BID SQ Last administered on 01/24/19 08:29; Start 01/23/19 at 21:00 Pantoprazole Sodium (PROTONIX VIAL for IV PUSH) 40 mg DAILY IVP Last administered on 01/24/19 08:29; Start 01/24/19 at 09:00 Fentanyl Citrate 30 ml @ 0 mls/hr CONT PRN IV PER PROTOCOL. Last administered on 01/24/19 02:21; Start 01/23/19 at 19:45 Propofol 100 ml @ 0 mls/hr CONT PRN IV PER PROTOCOL.; Start 01/23/19 at 19:45 Midazolam HCl 100 ml @ 0 mls/hr CONT PRN IV PER PROTOCOL. Last administered on 01/23/19at 22:19; Start 01/23/19 at 19:45 Vecuronium [place] (Norcuron Bolus) 7 mg PRN Q1HR PRN IV SHIVERING Last administered on 01/24/19at 01:58; Start 01/23/19 at 19:45 Norepinephrine Bitartrate 250 ml @ 13.608 mls/ hr CONT PRN IV SEE I/O RECORD; Start 01/23/19 at 20:45 Sodium Chloride 500 ml @ 500 mls/hr 1X ONCE IV Last administered on 01/23/19at 20:57; Start 01/23/19 at 20:45; Stop 01/23/19 at 21:44; Status DC Daptomycin 440 mg/ Sodium Chloride 50 ml @ 100 mls/hr Q24H IV Last ad ministered on 01/24/19at 00:12; Start 01/23/19 at 23:00 Linezolid/Dextrose 300 ml @ 300 mls/hr Q12HR IV Last administered on 01/24/19 08:29; Start 01/24/19 at 09:00 Doxycycline Hyclate 100 mg/ Dextrose 100 ml @ 50 mls/hr Q12HR IV Last administered on 01/24/19at 08:29; Start 01/24/19 at 09:00 Doxycycline Hyclate 100 mg/ Dextrose 100 ml @ 50 mls/hr 1X ONCE IV Last administered on 01/23/19at 23:42; Start 01/23/19 at 23:30; Stop 01/24/19 at 01:29; Status DC Linezolid/Dextrose 300 ml @ 300 mls/hr ONCE ONCE IV Last administered on 01/23/19at 23:42; Start 01/23/19 at 23:00; Stop 01/23/19 at 23:59; Status DC Insulin Human Regular 150 unit/ Sodium Chloride 151.5 ml @ 0 mls/hr CONT PRN IV SEE I/O RECORD; Start 01/23/19 at 23:15 Magnesium Sulfate 50 ml @ 25 mls/hr 1X ONCE IV Last administered on 01/24/19at 08:29; Start 01/24/19 at 06:45; Stop 01/24/19 at 08:44; Status DC Piperacillin Sod/ Tazobactam Sod 3.375 gm/Sodium Chloride 50 ml @ 100 mls/hr Q6HRS IV Last administered on 01/24/19 08:29; Start 01/24/19 at 08:00 Vitals/I & O Vital Sign - Last 24 Hours 01/23/19 01/23/19 01/23/19 01/23/19 15:06 15:15 15:25 15:30 Temp 98.2 98.2 Pulse 99 99 101 Resp 23 23 30 B/P (MAP) 122/68 (86) 134/63 (86) Pulse Ox 100 100 100 O2 Delivery Bag Valve Mask Bag Valve Mask Ventilator Ventilator O2 Flow Rate 15.0 15.0 01/23/19 01/23/19 01/23/19 01/23/19 15:45 16:00 16:15 16:30 Pulse 101 79 95 91 Resp 33 26 20 26 B/P (MAP) 164/76 (105) 100/59 (73) 140/66 (90) 157/81 (106) Pulse Ox 100 100 100 100 O2 Delivery Ventilator Ventilator Ventilator Ventilator 01/23/19 01/23/19 01/23/19 01/23/19 16:45 17:00 17:15 17:20 Pulse 88 81 86 Resp 26 B/P (MAP) 169/100 (123) 111/56 (74) 158/83 (108) Pulse Ox 99 99 100 100 O2 Delivery Ventilator Ventilator Ventilator Ventilator 01/23/19 01/23/19 01/23/19 01/23/19 17:30 19:10 19:41 20:00 Temp 99.7 Pulse 98 101 90 Resp B/P (MAP) 162/100 (120) 128/86 Pulse Ox 100 99 100 O2 Delivery Ventilator Ventilator Ventilator 01/23/19 01/23/19 01/23/19 01/23/19 20:00 20:15 20:27 20:30 Temp 99.7 99.5 Pulse 88 96 Resp 24 20 B/P (MAP) 134/88 160/100 Pulse Ox 100 99 87 O2 Delivery Mechanical Ventilator Ventilator Ventilator Ventilator 01/23/19 01/23/19 01/23/19 01/23/19 20:45 20:52 20:57 21:00 Temp 99.3 98.6 Pulse 62 62 Resp 20 20 B/P (MAP) 76/52 156/94 Pulse Ox 99 99 99 98 O2 Delivery Ventilator Ventilator Ventilator O2 Flow Rate 15.0 01/23/19 01/23/19 01/23/19 01/23/19 21:15 21:30 21:43 21:45 Temp 97.2 95.9 94.3 Pulse 80 70 62 Resp 20 20 20 20 B/P (MAP) 130/80 150/90 160/92 Pulse Ox 100 100 99 100 O2 Delivery Ventilator Ventilator Ventilator Ventilator 01/23/19 01/23/19 01/23/19 01/24/19 22:00 23:00 23:30 00:00 Temp 93.7 90.3 92.3 Pulse 56 58 60 Resp 20 20 20 B/P (MAP) 160/94 140/84 108/72 Pulse Ox 100 100 100 100 O2 Delivery Ventilator Ventilator Ventilator Ventilator 01/24/19 01/24/19 01/24/19 01/24/19 00:00 01:00 02:00 02:21 Temp 93.4 93.6 Pulse 58 66 Resp 22 20 B/P (MAP) 126/82 118/74 Pulse Ox 100 97 100 O2 Delivery Mechanical Ventilator Ventilator Ventilator Ventilator O2 Flow Rate 15.0 01/24/19 01/24/19 01/24/19 01/24/19 02:30 03:00 04:00 04:00 Temp 93.0 91.4 Pulse 57 51 Resp 20 22 B/P (MAP) 121/81 115/80 Pulse Ox 100 100 100 O2 Delivery Ventilator Ventilator Mechanical Ventilator Ventilator 01/24/19 01/24/19 01/24/19 01/24/19 04:36 04:36 05:00 05:45 Temp 91.6 Pulse 56 Resp 20 B/P (MAP) 104/66 Pulse Ox 100 100 100 100 O2 Delivery Ventilator Ventilator Ventilator Ventilator O2 Flow Rate 15.0 15.0 01/24/19 01/24/19 01/24/19 06:00 07:00 08:28 Temp 92.8 94.6 Pulse 68 75 Resp 20 25 B/P (MAP) 117/68 122/65 Pulse Ox 100 100 100 O2 Delivery Ventilator Ventilator Ventilator Intake and Output 01/23/19 01/23/19 01/24/19 14:59 22:59 06:59 Intake Total 3650 ml 1443 ml Output Total 900 ml 1475 ml Balance 2750 ml -32 ml DERECK CAREY MD Jan 24, 2019 09:29
[2019-01-24 09:54] LABS: MYCOPLASMA PATIENT NEGATIVE (NEGATIVE)
--- NOTE | 2019-01-24 11:03 | CARD ---
MR#: [id number] Date of Study: 01/24/2019 Ordering Physician: ALFA GRAY, Referring Physician: ALFA GRAY Tech: [facility] APPROVED REPORT EXAM: Two-dimensional and M-mode echocardiogram with Doppler and color Doppler. Other Information Quality : Technically LimitedHR: 80bpm Rhythm : OtherTechnically limited study due to left pneumothorax. INDICATION post cardiac arrest 2D DIMENSIONS RVDd4.0 (2.9-3.5cm)Left Atrium(2D)4.1 (1.6-4.0cm) IVSd1.1 (0.7-1.1cm)Aortic Root(2D)3.1 (2.0-3.7cm) LVDd4.1 (3.9-5.9cm)LVOT Diameter2.0 (1.8-2.4cm) PWd1.0 (0.7-1.1cm)LVDs3.0 (2.5-4.0cm) FS (%) 25.7 %SV37.3 ml LVEF(%)40.0 (>50%) Aortic Valve AoV Peak Lei.110.3cm/sAoV VTI15.7cm AO Peak GR.4.9mmHgLVOT VTI 11.53cm AO Mean GR.3mmHgAVA (VTI)2.24cm2 Mitral Valve MV E Bbglkiwh14.9cm/sMV DECEL [id number] MV A Uhdgboac09.9cm/sE/A Ratio1.5 MV A [id number] Tricuspid Valve TR P. [id number]/sRAP [id number] TR Peak [id number] LEFT VENTRICLE The left ventricle is normal size. There is normal left ventricular wall thickness. The ejection frac tion is moderately impaired. Visually the Ejection Fraction is 30-35%. There is global hypokinesis of the left ventricle. Wall motion not well visualized. Transmitral Doppler flow pattern is abnormal. RIGHT VENTRICLE The right ventricle is mildly dilated. There is normal right ventricular wall thickness. Systolic fun ction is mildly reduced. ATRIA The left atrium is mildly dilated. The right atrium is moderately dilated. The interatrial septum is intact with no evidence for an atrial septal defect or patent foramen ovale as noted on 2-D or Dopple r imaging. AORTIC VALVE The aortic valve is not well visualized. Doppler and Color Flow revealed no significant aortic regurg itation. There is no significant aortic valvular stenosis. MITRAL VALVE The mitral valve is normal in structure and function. There is no evidence of mitral valve prolapse. There is no mitral valve stenosis. Doppler and Color Flow revealed no mitral valve regurgitation note d. TRICUSPID VALVE The tricuspid valve is normal in structure and function. Doppler and Color Flow revealed mild tricusp id regurgitation. There is moderate pulmonary hypertension. The PA pressure was estimated at 55 mmHg. There is no tricuspid valve prolapse or vegetation. There is no tricuspid valve stenosis. PULMONIC VALVE The pulmonic valve is not well visualized. GREAT VESSELS The aortic root is normal in size. The ascending aorta is normal in size. The IVC is dilated. PERICARDIAL EFFUSION There is no evidence of significant pericardial effusion. Critical Notification Critical Value: No <Conclusion> The ejection fraction is moderately impaired. Visually the Ejection Fraction is 30-35%. There is global hypokinesis of the left ventricle. Wall motion not well visualized. The right ventricle is mildly dilated. Doppler and Color Flow revealed mild tricuspid regurgitation. There is moderate pulmonary hypertensio n. The PA pressure was estimated at 55 mmHg. Signed by : Martin Chapa, Electronically Approved : 01/24/2019 11:02:58
--- NOTE | 2019-01-24 11:44 | PDOC ---
CARDIO Progress Notes Date and Time Date of Service 01/24/2019 Time of Evaluation 1115 Subjective Subjective: Other (intubated) Vitals Vitals Vital Signs Date Time Temp Pulse Resp B/P (MAP) Pulse Ox O2 Delivery O2 Flow Rate FiO2 01/24/19 11:00 89.1 47 24 152/88 100 Ventilator 01/24/19 04:36 15.0 Weight Weight [ ] Input and Output Intake and Output Intake and Output 01/24/19 07:00 Intake Total 5093 ml Output Total 2565 ml Balance 2528 ml Intake IV Total 5093 ml Output Urine Total 2565 ml Laboratory Labs Laboratory Tests Test 01/23/19 15:15 01/23/19 15:20 01/23/19 15:25 01/23/19 15:26 O2 Saturation 97 % (92-99) Arterial Blood pH 7.04 (7.35-7.45) Arterial Blood pCO2 at Patient Temp 42 mmHg (35-46) Arterial Blood pO2 at Patient Temp 125 mmHg (65-108) Arterial Blood HCO3 11 mmol/L (21-28) Arterial Blood Base Excess -19 mmol/L (-3-3) FiO2 100 White Blood Count 19.5 x10^3/uL (4.0-11.0) Red Blood Count 5.25 x10^6/uL (4.30-5.70) Hemoglobin 16.7 g/dL (13.0-17.5) Hematocrit 49.9 % (39.0-53.0) Mean Corpuscular Volume 95 fL (79-100) Mean Corpuscular Hemoglobin 32 pg (25-35) Mean Corpuscular Hemoglobin Concent 33 g/dL (31-37) Red Cell Distribution Width 13.7 % (11.5-14.5) Platelet Count 164 x10^3/uL (140-400) Neutrophils (%) (Auto) 81 % (31-73) Lymphocytes (%) (Auto) 15 % (24-48) Monocytes (%) (Auto) 3 % (0-9) Eosinophils (%) (Auto) 0 % (0-3) Basophils (%) (Auto) 0 % (0-3) Neutrophils # (Auto) 15.8 x10^3/uL (1.8-7.7) Lymphocytes # (Auto) 2.9 x10^3/uL (1.0-4.8) Monocytes # (Auto) 0.6 x10^3/uL (0.0-1.1) Eosinophils # (Auto) 0.1 x10^3/uL (0.0-0.7) Basophils # (Auto) 0.1 x10^3/uL (0.0-0.2) Segmented Neutrophils % 65 % (35-66) Band Neutrophils % 11 % (0-9) Lymphocytes % 17 % (24-48) Monocytes % 5 % (0-10) Basophils % 1 % (0-3) Metamyelocytes % 1 % (0-0) Platelet Estimate Adequate (ADEQUATE) Prothrombin Time 15.3 SEC (11.7-14.0) Prothromb Time International Ratio 1.2 (0.8-1.1) D-Dimer (Keisha) 12.31 ug/mlFEU (0.00-0.50) Sodium Level 139 mmol/L (136-145) Potassium Level 2.8 mmol/L (3.5-5.1) Chloride Level 100 mmol/L (98-107) Carbon Dioxide Level 20 mmol/L (21-32) Anion Gap 19 (6-14) 17 mmol/L (6-14) Blood Urea Nitrogen 20 mg/dL (8-26) Creatinine 1.8 mg/dL (0.7-1.3) Estimated GFR (Cockcroft-Gault) 38.2 BUN/Creatinine Ratio 11 (6-20) Glucose Level 265 mg/dL (70-99) 264 mg/dL (70-99) Calcium Level 8.6 mg/dL (8.5-10.1) Magnesium Level 2.7 mg/dL (1.8-2.4) Total Bilirubin 0.8 mg/dL (0.2-1.0) Aspartate Amino Transf (AST/SGOT) 159 U/L (15-37) Alanine Aminotransferase (ALT/SGPT) 190 U/L (16-63) Alkaline Phosphatase 109 U/L (46-116) Creatine Kinase 213 U/L (39-308) Troponin I Quantitative 0.228 ng/mL (0.000-0.055) VG-Bal-O-Type Natriuretic Peptide 306 pg/mL (0-124) Total Protein 6.9 g/dL (6.4-8.2) Albumin 3.5 g/dL (3.4-5.0) Albumin/Globulin Ratio 1.0 (1.0-1.7) Lipase 115 U/L (73-393) Bedside Hemoglobin 17.3 g/dL (14-18) Bedside Hematocrit 51 % (37-52) Bedside Sodium 133 mmol/L (135-145) Bedside Potassium 6.5 mmol/L (3.5-5.0) Bedside Chloride 101 mmol/L (98-110) Bedside Total CO2 23 mmol/L (23-32) Bedside Blood Urea Nitrogen 31 mg/dL (8-26) Bedside Creatinine 1.6 mg/dL (0.5-1.4) Lactic Acid Level 9.5 mmol/L (0.4-2.0) Bedside Ionized Calcium (Clover) 0.99 mmol/L (1.13-1.32) Triglycerides Level 102 mg/dL (0-150) Cholesterol Level 148 mg/dL (0-200) LDL Cholesterol, Calculated 84 mg/dL (0-100) VLDL Cholesterol, Calculated 20 mg/dL (0-40) Non-HDL Cholesterol Calculated 104 mg/dL (0-129) HDL Cholesterol 44 mg/dL (40-60) Cholesterol/HDL Ratio 3.4 Thyroid Stimulating Hormone (TSH) 10.832 uIU/mL (0.358-3.74) Bedside Troponin I 0.09 ng/ml (<0.08) Test 01/23/19 17:00 01/23/19 20:13 01/23/19 20:15 01/23/19 20:18 O2 Saturation 99 % (92-99) 98 % (92-99) Arterial Blood pH 7.33 (7.35-7.45) 7.38 (7.35-7.45) Arterial Blood pCO2 at Patient Temp 39 mmHg (35-46) 30 mmHg (35-46) Arterial Blood pO2 at Patient Temp 441 mmHg (65-108) 136 mmHg (65-108) Arterial Blood HCO3 20 mmol/L (21-28) 17 mmol/L (21-28) Arterial Blood Base Excess -6 mmol/L (-3-3) -6 mmol/L (-3-3) FiO2 100 50 Sodium Level 139 mmol/L (136-145) Potassium Level 4.8 mmol/L (3.5-5.1) Chloride Level 103 mmol/L (98-107) Carbon Dioxide Level 19 mmol/L (21-32) Anion Gap 17 (6-14) Blood Urea Nitrogen 21 mg/dL (8-26) Creatinine 1.1 mg/dL (0.7-1.3) Estimated GFR (Cockcroft-Gault) 67.4 Glucose Level 180 mg/dL (70-99) Lactic Acid Level 3.1 mmol/L (0.4-2.0) Calcium Level 8.2 mg/dL (8.5-10.1) Magnesium Level 1.9 mg/dL (1.8-2.4) Troponin I Quantitative 11.377 ng/mL (0.000-0.055) Arterial Blood pH (Temp corrected) 7.37 Arterial Blood pCO2 (Temp correct) 31 mmHg Arterial Blood pO2 (Temp corrected) 140 mmHg Glucose (Fingerstick) 167 mg/dL (70-99) Test 01/23/19 22:00 01/23/19 23:05 01/24/19 00:00 01/24/19 00:01 Urine Collection Type Unknown Urine Color Yellow Urine Clarity Clear Urine pH 5.0 Urine Specific Oakley >=1.030 Urine Protein 100 mg/dL (NEG-TRACE) Urine Glucose (UA) 100 mg/dL (NEG) Urine Ketones (Stick) 15 mg/dL (NEG) Urine Blood Large (NEG) Urine Nitrite Negative (NEG) Urine Bilirubin Negative (NEG) Urine Urobilinogen Dipstick 0.2 mg/dL (0.2 mg/dL) Urine Leukocyte Esterase Negative (NEG) Urine RBC 20-40 /HPF (0-2) Urine WBC Occ /HPF (0-4) Urine Bacteria 0 /HPF (0-FEW) Urine Hyaline Casts Occasional /HPF Urine Mucus Slight /LPF Glucose (Fingerstick) 166 mg/dL (70-99) 212 mg/dL (70-99) 190 mg/dL (70-99) Urine Opiates Screen Neg (NEG) Urine Methadone Screen Neg (NEG) Urine Barbiturates Neg (NEG) Urine Phencyclidine Screen Neg (NEG) Urine Amphetamine/Methamphetamine Neg (NEG) Urine Benzodiazepines Screen Pos (NEG) Urine Cocaine Screen Neg (NEG) Urine Cannabinoids Screen Pos (NEG) Urine Ethyl Alcohol Neg (NEG) White Blood Count 25.5 x10^3/uL (4.0-11.0) Red Blood Count 4.82 x10^6/uL (4.30-5.70) Hemoglobin 15.3 g/dL (13.0-17.5) Hematocrit 44.8 % (39.0-53.0) Mean Corpuscular Volume 93 fL (79-100) Mean Corpuscular Hemoglobin 32 pg (25-35) Mean Corpuscular Hemoglobin Concent 34 g/dL (31-37) Red Cell Distribution Width 13.2 % (11.5-14.5) Platelet Count 160 x10^3/uL (140-400) Neutrophils (%) (Auto) 95 % (31-73) Lymphocytes (%) (Auto) 2 % (24-48) Monocytes (%) (Auto) 3 % (0-9) Eosinophils (%) (Auto) 0 % (0-3) Basophils (%) (Auto) 0 % (0-3) Neutrophils # (Auto) 24.2 x10^3/uL (1.8-7.7) Lymphocytes # (Auto) 0.4 x10^3/uL (1.0-4.8) Monocytes # (Auto) 0.8 x10^3/uL (0.0-1.1) Eosinophils # (Auto) 0.0 x10^3/uL (0.0-0.7) Basophils # (Auto) 0.1 x10^3/uL (0.0-0.2) Prothrombin Time 19.1 SEC (11.7-14.0) Prothromb Time International Ratio 1.6 (0.8-1.1) Activated Partial Thromboplast Time 47 SEC (24-38) Sodium Level 139 mmol/L (136-145) Potassium Level 4.1 mmol/L (3.5-5.1) Chloride Level 106 mmol/L (98-107) Carbon Dioxide Level 20 mmol/L (21-32) Anion Gap 13 (6-14) Blood Urea Nitrogen 19 mg/dL (8-26) Creatinine 1.1 mg/dL (0.7-1.3) Estimated GFR (Cockcroft-Gault) 67.4 Glucose Level 189 mg/dL (70-99) Calcium Level 7.5 mg/dL (8.5-10.1) Phosphorus Level 3.5 mg/dL (2.6-4.7) Magnesium Level 2.2 mg/dL (1.8-2.4) Ionized Calcium 1.02 mmol/L (1.13-1.32) Test 01/24/19 01:05 01/24/19 02:16 01/24/19 03:08 01/24/19 04:09 Glucose (Fingerstick) 86 mg/dL (70-99) 101 mg/dL (70-99) 137 mg/dL (70-99) 127 mg/dL (70-99) Test 01/24/19 05:41 01/24/19 05:45 01/24/19 06:11 01/24/19 08:30 Glucose (Fingerstick) 118 mg/dL (70-99) 110 mg/dL (70-99) White Blood Count 22.6 x10^3/uL (4.0-11.0) Red Blood Count 4.76 x10^6/uL (4.30-5.70) Hemoglobin 15.1 g/dL (13.0-17.5) Hematocrit 44.5 % (39.0-53.0) Mean Corpuscular Volume 93 fL (79-100) Mean Corpuscular Hemoglobin 32 pg (25-35) Mean Corpuscular Hemoglobin Concent 34 g/dL (31-37) Red Cell Distribution Width 13.5 % (11.5-14.5) Platelet Count 138 x10^3/uL (140-400) Neutrophils (%) (Auto) 92 % (31-73) Lymphocytes (%) (Auto) 4 % (24-48) Monocytes (%) (Auto) 4 % (0-9) Eosinophils (%) (Auto) 0 % (0-3) Basophils (%) (Auto) 0 % (0-3) Neutrophils # (Auto) 20.8 x10^3/uL (1.8-7.7) Lymphocytes # (Auto) 0.9 x10^3/uL (1.0-4.8) Monocytes # (Auto) 1.0 x10^3/uL (0.0-1.1) Eosinophils # (Auto) 0.0 x10^3/uL (0.0-0.7) Basophils # (Auto) 0.0 x10^3/uL (0.0-0.2) Prothrombin Time 16.4 SEC (11.7-14.0) Prothromb Time International Ratio 1.4 (0.8-1.1) Activated Partial Thromboplast Time 39 SEC (24-38) Sodium Level 142 mmol/L (136-145) Potassium Level 3.9 mmol/L (3.5-5.1) Chloride Level 110 mmol/L (98-107) Carbon Dioxide Level 22 mmol/L (21-32) Anion Gap 10 (6-14) Blood Urea Nitrogen 16 mg/dL (8-26) Creatinine 0.9 mg/dL (0.7-1.3) Estimated GFR (Cockcroft-Gault) 85.0 Glucose Level 134 mg/dL (70-99) Calcium Level 7.6 mg/dL (8.5-10.1) Ionized Calcium 1.06 mmol/L (1.13-1.32) Phosphorus Level 2.8 mg/dL (2.6-4.7) Magnesium Level 2.1 mg/dL (1.8-2.4) Total Bilirubin 1.8 mg/dL (0.2-1.0) Direct Bilirubin 0.5 mg/dL (0.0-0.2) Aspartate Amino Transf (AST/SGOT) 294 U/L (15-37) Alanine Aminotransferase (ALT/SGPT) 181 U/L (16-63) Alkaline Phosphatase 68 U/L (46-116) Troponin I Quantitative 27.704 ng/mL (0.000-0.055) Total Protein 5.6 g/dL (6.4-8.2) Albumin 2.9 g/dL (3.4-5.0) Procalcitonin 0.40 ng/mL (0.00-0.10) Free Thyroxine 1.25 ng/dL (0.76-1.46) Mycoplasma Serology (LAB) Negative (NEGATIVE) O2 Saturation 96 % (92-99) Arterial Blood pH 7.24 (7.35-7.45) Arterial Blood pH (Temp corrected) 7.27 Arterial Blood pCO2 at Patient Temp 48 mmHg (35-46) Arterial Blood pCO2 (Temp correct) 43 mmHg Arterial Blood pO2 at Patient Temp 94 mmHg (65-108) Arterial Blood pO2 (Temp corrected) 82 mmHg Arterial Blood HCO3 20 mmol/L (21-28) Arterial Blood Base Excess -8 mmol/L (-3-3) FiO2 40 Test 01/24/19 08:36 Glucose (Fingerstick) 94 mg/dL (70-99) Physical Exam HEENT: Neck Supple W Full Motion Chest: Symmetric LUNGS: Other (diminsihed bases) Heart: S1S2, RRR (SB) Abdomen: Other (soft) Extremities: Other (on hypothermia protocol) Neurology: other (sedated) Other Exams right groin arteriotomy site intact, no erythema or swelling. femoral sheath is in place and secured. Assessment Assessment 1. Vfib OOH arrest: culprit is occluded LCx S/P 3 stents. 2. CAD: new as above 3. ICM: EF 30-35% 4. Acute diastolic/systolic CHF 5. Acute respiratory failure with combination of CHF and pneumonia. intubated/vent. Pulmonary consulted 6. Small left apical pneumothorax/nondisplaced rib fractures: due to automatic CPR device device en route. 7. Nausea and vomiting with possible gastroenteritis 8. Mild transaminitis: likely from hypoperfusion 9. MARIANNE: prerenal, resolved 10. Sepsis: ID following 11 Hypothyroidism: Defer to PCP new. TSH 10 12. Tobaccoism 13. Substance abuse: UDS+ marijuana 14. Sinus bradycardia: no further VTs. No pauses, will reeval after rewarming Recommendations 1. ASA/ plavix. Start on statin, lower dose for now with transaminitis. 2. Amiodarone drip and will convert to PO soon 3. Will evaluate for ACEi/BB post rewarming 4. CXR today. Decrease IVF. Lasix PRN. 5. Will eval mental state once extubated and will consider for lifevest prior to DC. ALFA GRAY DRIVER/MERCHANDISER Jan 24, 2019 11:44
[2019-01-24 12:33] LABS: HEMATOCRIT 43.9 % (39.0-53.0); HEMOGLOBIN 14.9 g/dL (13.0-17.5); RED BLOOD COUNT 4.75 x10^6/uL (4.30-5.70); RED CELL DISTRIBUTION WIDTH 13.3 % (11.5-14.5); WHITE BLOOD COUNT 20.4 x10^3/uL (4.0-11.0)
[2019-01-24 12:42] LABS: CALCIUM 7.6 mg/dL (8.5-10.1); CREATININE 0.7 mg/dL (0.7-1.3); GFR 113.5; MAGNESIUM 2.5 mg/dL (1.8-2.4); PHOSPHORUS 2.1 mg/dL (2.6-4.7); POTASSIUM 3.8 mmol/L (3.5-5.1)
--- NOTE | 2019-01-24 12:51 | PDOC2 ---
CONSULT Date of Consult Date of Consult DATE: 01/24/19 TIME: 12:38 Reason for Consult Reason for Consult: MARIANNE Referring Physician Referring Physician: AURELIO Identification/Chief Complaint Chief Complaint CODE BLUE Source Source: Chart review History of Present Illness Reason for Visit: THIS IS A 63 YR WHO WAS UNRESPONSIVE AT HOME AND CODED OUTSIDE THE HOSPITAL. WAS IN AFIB THEN SVT THEN V TACH. SURVIVED THE CODE AND AFTERWARDS WAS TAKEN EMERGENTLY TO THE [facility] WHERE HER UNDERWENT PTCA AND STENT PLACEMENT. ADMIT LABS NOTABLE FOR MARIANNE WITH CR OF 1.8 AND K OF 2.8 WELL LEUCOCYTOSIS. ID EVAL ONGOING. NO REPORTED HX OF PROBLEMS OR CKD NOTED. DID GET CONTRAST EXPOSURE WITH CATH. CURRENTLY HAS A LOMAS IN PLACE. HIS LFTS AND BLOOD GLUCOSE WERE ALSO ELEVATED Past Medical History Cardiovascular: No pertinent hx Pulmonary: No pertinent hx CENTRAL NERVOUS SYSTEM: Other (No pertinent history) GI: Other (inguinal hernia) Heme/Onc: No pertinent hx Hepatobiliary: No pertinent hx Psych: No pertinent hx Musculoskeletal: Osteoarthritis Rheumatologic: No pertinent hx Infectious disease: No pertinent hx ENT: No pertinent hx Renal/: No pertinent hx Endocrine: No pertinent hx Dermatology: No pertinent hx Past Surgical History Past Surgical History: Hernia Repair (left inguinal) Family History Family History: Coronary Artery Disease (father) Social History <1 pack per day ALCOHOL: none Drugs: None Lives: with Family Current Problem List Problem List Problems Medical Problems: (1) Cardiorespiratory arrest Status: Acute (2) Elevated liver function tests Status: Acute (3) Elevated troponin Status: Acute (4) Hyperglycemia Status: Acute (5) Hypokalemia Status: Acute (6) Metabolic acidosis Status: Acute (7) Renal insufficiency Status: Acute (8) Ribs, multiple fractures Status: Acute (9) Severe sepsis Status: Acute (10) STEMI (ST elevation myocardial infarction) Status: Acute (11) Traumatic pneumothorax Status: Acute Current Medications Current Medications Current Medications Sodium Chloride 1,000 ml @ 1,000 mls/hr Q1H IV Last administered on 01/23/19at 17:23; Start 01/23/19 at 15:13; Stop 01/23/19 at 16:12; Status DC Sodium Bicarbonate (Sodium Bicarb Adult 8.4% Syr) 100 meq 1X ONCE IV Last administered on 01/23/19at 17:23; Start 01/23/19 at 15:30; Stop 01/23/19 at 15:59; Status DC Midazolam HCl (Versed) 5 mg STK-MED ONCE .ROUTE ; Start 01/23/19 at 15:25; Stop 01/23/19 at 15:25; Status DC Propofol 50 ml @ As Directed STK-MED ONCE IV ; Start 01/23/19 at 15:25; Stop 01/23/19 at 15:25; Status DC Calcium Gluconate (Calcium Gluconate) 1,000 mg 1X ONCE IVP Last administered on 01/23/19at 16:12; Start 01/23/19 at 16:00; Stop 01/23/19 at 16:01; Status DC Dextrose (Dextrose 50%-Water Syringe) 25 gm 1X ONCE IV ; Start 01/23/19 at 15:45; Stop 01/23/19 at 15:53; Status DC Insulin Human Regular (HumuLIN R VIAL) 10 unit 1X ONCE IV ; Start 01/23/19 at 15:45; Stop 01/23/19 at 15:53; Status DC Iohexol (Omnipaque 350 Mg/ml) 90 ml 1X ONCE IV Last administered on 01/23/19at 16:08; Start 01/23/19 at 15:45; Stop 01/23/19 at 16:00; Status DC Amiodarone HCl 900 mg/Dextrose 518 ml @ 0 mls/hr CONT PRN IV SEE I/O RECORD Last administered on 01/23/19at 17:06; Start 01/23/19 at 16:00; Stop 01/23/19 at 17:06; Status DC Piperacillin Sod/ Tazobactam Sod 3.375 gm/Sodium Chloride 50 ml @ 100 mls/hr 1X ONCE IV Last administered on 01/23/19at 22:19; Start 01/23/19 at 16:00; Stop 01/23/19 at 16:29; Status DC Vancomycin HCl 250 ml @ 250 mls/hr 1X ONCE IV ; Start 01/23/19 at 16:00; Stop 01/23/19 at 16:24; Status DC Fentanyl Citrate (Fentanyl 2ml Vial) 100 mcg 1X ONCE IV ; Start 01/23/19 at 16:15; Stop 01/23/19 at 16:24; Status DC Midazolam HCl (Versed) 2 mg 1X ONCE IV ; Start 01/23/19 at 16:15; Stop 01/23/19 at 16:24; Status DC Magnesium Sulfate/ Dextrose 100 ml @ 100 mls/hr 1X ONCE IV ; Start 01/23/19 at 16:15; Stop 01/23/19 at 17:14; Status DC Buspirone HCl (Buspar) 30 mg Q8H NG Last administered on 01/24/19at 08:29; Start 01/23/19 at 17:00; Stop 01/25/19 at 09:01 Acetaminophen (Tylenol) 650 mg Q4H NG Last administered on 01/24/19at 09:16; Start 01/23/19 at 16:15 Artificial Tears (Artificial Tears) 1 drop Q6HRS OU Last administered on 01/24/19at 06:12; Start 01/23/19 at 18:00 Artificial Tears (Artificial Tears) 1 drop PRN Q15MIN PRN OU DRY EYE; Start 01/23/19 at 16:15 Heparin Sodium (Porcine) (Heparin Sodium) 5,000 unit BID SQ ; Start 01/23/19 at 21:00; Stop 01/23/19 at 16:53; Status DC Pantoprazole Sodium (PROTONIX VIAL for IV PUSH) 40 mg DAILY IVP ; Start 01/24/19 at 09:00; Stop 01/23/19 at 20:27; Status DC Fentanyl Citrate 30 ml @ 0 mls/hr CONT PRN IV PER PROTOCOL.; Start 01/23/19 at 16:15; Stop 01/23/19 at 18:01; Status DC Propofol 100 ml @ 0 mls/hr CONT PRN IV PER PROTOCOL.; Start 01/23/19 at 16:15; Stop 01/23/19 at 20:27; Status DC Midazolam HCl 100 ml @ 0 mls/hr CONT PRN IV PER PROTOCOL. Last administered on 01/23/19at 16:50; Start 01/23/19 at 16:15; Stop 01/23/19 at 20:26; Status DC Vecuronium [place] (Norcuron Bolus) 7 mg PRN Q1HR PRN IV SHIVERING; Start 01/23/19 at 16:15; Stop 01/23/19 at 20:28; Status DC Pantoprazole Sodium (PROTONIX VIAL for IV PUSH) 40 mg DAILYAC IVP ; Start 01/24/19 at 07:30; Stop 01/23/19 at 16:25; Status DC Pantoprazole Sodium (PROTONIX VIAL for IV PUSH) 40 mg 1X ONCE IVP Last administered on 01/23/19at 23:43; Start 01/23/19 at 17:00; Stop 01/23/19 at 17:01; Status DC Enoxaparin Sodium (Lovenox 40mg Syringe) 40 mg Q24H SQ ; Start 01/23/19 at 21:00; Stop 01/23/19 at 23:59; Status DC Sodium Chloride 1,000 ml @ 150 mls/hr Q6H40M IV Last administered on 01/24/19at 04:43; Start 01/23/19 at 16:11; Stop 01/24/19 at 11:40; Status DC Potassium Chloride/Water 100 ml @ 100 mls/hr Q1H IV Last administered on 01/23/19at 19:06; Start 01/23/19 at 17:00; Stop 01/23/19 at 20:59; Status DC Potassium Chloride/Water 100 ml @ 100 mls/hr Q1H IV ; Start 01/23/19 at 22:00; Stop 01/23/19 at 23:59; Status DC Vancomycin HCl 1.75 gm/Sodium Chloride 500 ml @ 250 mls/hr 1X ONCE IV Last ad ministered on 01/23/19at 23:42; Start 01/23/19 at 18:00; Stop 01/23/19 at 19:59; Status DC Aspirin (Aspirin Rectal Supp) 300 mg 1X ONCE [place] Last administered on 01/23/19at 20:27; Start 01/23/19 at 17:00; Stop 01/23/19 at 17:01; Status DC Lidocaine HCl (Lidocaine 1% 20ml Vial) 20 ml STK-MED ONCE .ROUTE ; Start 01/23/19 at 16:37; Stop 01/23/19 at 16:37; Status DC Heparin Sodium/ Sodium Chloride 1,000 ml @ As Directed STK-MED ONCE .ROUTE ; Start 01/23/19 at 16:37; Stop 01/23/19 at 16:38; Status DC Heparin Sodium/ Dextrose 500 ml @ 0 mls/hr CONT PRN IV SEE I/O RECORD; Start 01/23/19 at 17:00; Stop 01/23/19 at 23:27; Status DC Midazolam HCl (Versed) 5 mg STK-MED ONCE .ROUTE ; Start 01/23/19 at 17:00; Stop 01/23/19 at 17:00; Status DC Sodium Chloride 1,000 ml @ 1,000 mls/hr 1X ONCE IV Last administered on 01/23/19at 18:58; Start 01/23/19 at 17:30; Stop 01/23/19 at 18:29; Status DC Propofol 50 ml @ 2.1 mls/hr 1X STAT IV Last administered on 01/23/19at 18:51; Start 01/23/19 at 17:17; Stop 01/23/19 at 20:27; Status DC Midazolam HCl (Versed) 5 mg 1X ONCE IV Last administered on 01/23/19at 18:18; Start 01/23/19 at 17:30; Stop 01/23/19 at 17:31; Status DC Fentanyl Citrate 30 ml @ 0 mls/hr CONT PRN PRN IV PER PROTOCOL; Start 01/23/19 at 17:45; Status Cancel Naloxone HCl (Narcan) 0.4 mg PRN Q2MIN PRN IV SEE INSTRUCTIONS; Start 01/23/19 at 17:45 Sodium Chloride 1,000 ml @ 25 mls/hr Q24H IV Last administered on 01/23/19at 22:20; Start 01/23/19 at 17:33 Midazolam HCl (Versed) 5 mg 1X ONCE IV Last administered on 01/23/19at 19:02; Start 01/23/19 at 18:15; Stop 01/23/19 at 18:16; Status DC Amiodarone HCl (Cordarone) 150 mg STK-MED ONCE .ROUTE ; Start 01/23/19 at 18:11; Stop 01/23/19 at 18:12; Status DC Iodixanol (Visipaque 320) 100 ml STK-MED ONCE .ROUTE ; Start 01/23/19 at 18:19; Stop 01/23/19 at 18:19; Status DC Bivalirudin (Angiomax) 250 mg STK-MED ONCE IV ; Start 01/23/19 at 18:20; Stop 01/23/19 at 18:20; Status DC Nitroglycerin (Nitroglycerin) 200 mcg 1X ONCE IART Last administered on 01/23/19at 19:10; Start 01/23/19 at 18:45; Stop 01/23/19 at 18:56; Status DC Heparin Sodium/ Sodium Chloride (HEPARIN for ARTERIAL LINE FLUSH) 1,000 unit 1X ONCE IART Last administered on 01/23/19 19:10; Start 01/23/19 at 18:45; Stop 01/23/19 at 18:56; Status DC Heparin Sodium/ Sodium Chloride (HEPARIN for ARTERIAL LINE FLUSH) 1,000 unit 1X ONCE IART Last administered on 01/23/19at 19:10; Start 01/23/19 at 18:45; Stop 01/23/19 at 18:56; Status DC Iodixanol (Visipaque 320) 100 ml 1X ONCE IART Last administered on 01/23/19 19:10; Start 01/23/19 at 18:45; Stop 01/23/19 at 18:56; Status DC Bivalirudin (Angiomax) 250 mg 1X ONCE IV Last administered on 01/23/19 19:10; Start 01/23/19 at 18:45; Stop 01/23/19 at 18:56; Status DC Lidocaine HCl (Lidocaine 1% 20ml Vial) 10 ml 1X ONCE INJ Last administered on 01/23/19 19:10; Start 01/23/19 at 18:45; Stop 01/23/19 at 18:56; Status DC Amiodarone HCl 150 mg/Dextrose 103 ml @ 0 mls/hr 1X ONCE IV Last administered on 01/23/19 19:10; Start 01/23/19 at 19:00; Stop 01/23/19 at 19:01; Status DC Info (CONTRAST GIVEN -- Rx MONITORING) 1 each PRN DAILY PRN MC SEE COMMENTS; Start 01/23/19 at 19:00; Stop 01/25/19 at 18:59 Heparin Sodium/ Sodium Chloride 500 ml @ As Directed STK-MED ONCE .ROUTE ; Start 01/23/19 at 19:02; Stop 01/23/19 at 19:03; Status DC Sodium Chloride (Normal Saline Flush) 3 ml QSHIFT PRN IV AFTER MEDS AND BLOOD DRAWS; Start 01/23/19 at 19:30 Sodium Chloride 1,000 ml @ 75 mls/hr [id number] IV Last administered on 01/23/19at 20:27; Start 01/23/19 at 19:17; Stop 01/24/19 at 03:16; Status DC Aspirin (Ecotrin) 325 mg DAILYWBKFT PO Last administered on 01/24/19at 08:29; Start 01/24/19 at 08:00 Clopidogrel Bisulfate (Plavix) 75 mg DAILYWBKFT PO Last administered on 01/24/19at 09:16; Start 01/24/19 at 08:00 Acetaminophen (Tylenol) 650 mg PRN Q6HRS PRN PO MILD PAIN / TEMP; Start 01/23/19 at 19:30 Fentanyl Citrate (Fentanyl 2ml Vial) 50 mcg PRN Q1HR PRN IV MODERATE OR SEVERE PAIN; Start 01/23/19 at 19:30 Nitroglycerin (Nitrostat) 0.4 mg PRN Q5MIN PRN SL CHEST PAIN; Start 01/23/19 at 19:30 Amiodarone HCl 150 mg/Dextrose 103 ml @ 600 mls/hr 1X PRN PRN IV FOR VENTRICULAR TACHYCARDIA; Start 01/23/19 at 19:30 Lidocaine HCl (Lidocaine HCl 2% Abboject) 100 mg 1X PRN PRN IV FOR VENTRICULAR TACHYCARDIA; Start 01/23/19 at 19:30 Atropine Sulfate (ATROPINE 0.5mg SYRINGE) 0.5 mg PRN 1X PRN IV BRADYCARDIA; Start 01/23/19 at 19:30 Fentanyl Citrate (Fentanyl 2ml Vial) 100 mcg 1X ONCE IV Last administered on 01/23/19at 20:27; Start 01/23/19 at 19:45; Stop 01/23/19 at 20:25; Status DC Midazolam HCl (Versed) 2 mg 1X ONCE IV ; Start 01/23/19 at 19:45; Stop 01/23/19 at 20:25; Status DC Magnesium Sulfate/ Dextrose 100 ml @ 100 mls/hr 1X ONCE IV Last administered on 01/23/19at 20:46; Start 01/23/19 at 19:45; Stop 01/23/19 at 20:44; Status DC Heparin Sodium (Porcine) (Heparin Sodium) 5,000 unit BID SQ Last administered on 01/24/19at 08:29; Start 01/23/19 at 21:00 Pantoprazole Sodium (PROTONIX VIAL for IV PUSH) 40 mg DAILY IVP Last administered on 01/24/19at 08:29; Start 01/24/19 at 09:00 Fentanyl Citrate 30 ml @ 0 mls/hr CONT PRN IV PER PROTOCOL. Last administered on 01/24/19at 09:46; Start 01/23/19 at 19:45 Propofol 100 ml @ 0 mls/hr CONT PRN IV PER PROTOCOL.; Start 01/23/19 at 19:45 Midazolam HCl 100 ml @ 0 mls/hr CONT PRN IV PER PROTOCOL. Last administered on 01/23/19at 22:19; Start 01/23/19 at 19:45 Vecuronium [place] (Norcuron Bolus) 7 mg PRN Q1HR PRN IV SHIVERING Last administered on 01/24/19at 09:54; Start 01/23/19 at 19:45 Norepinephrine Bitartrate 250 ml @ 13.608 mls/ hr CONT PRN IV SEE I/O RECORD; Start 01/23/19 at 20:45 Sodium Chloride 500 ml @ 500 mls/hr 1X ONCE IV Last administered on 01/23/19at 20:57; Start 01/23/19 at 20:45; Stop 01/23/19 at 21:44; Status DC Daptomycin 440 mg/ Sodium Chloride 50 ml @ 100 mls/hr Q24H IV Last administered on 01/24/19at 00:12; Start 01/23/19 at 23:00 Linezolid/Dextrose 300 ml @ 300 mls/hr Q12HR IV Last administered on 01/24/19at 08:29; Start 01/24/19 at 09:00 Doxycycline Hyclate 100 mg/ Dextrose 100 ml @ 50 mls/hr Q12HR IV Last admini stered on 01/24/19at 08:29; Start 01/24/19 at 09:00 Doxycycline Hyclate 100 mg/ Dextrose 100 ml @ 50 mls/hr 1X ONCE IV Last ad ministered on 01/23/19at 23:42; Start 01/23/19 at 23:30; Stop 01/24/19 at 01:29; Status DC Linezolid/Dextrose 300 ml @ 300 mls/hr ONCE ONCE IV Last administered on 01/23/19at 23:42; Start 01/23/19 at 23:00; Stop 01/23/19 at 23:59; Status DC Insulin Human Regular 150 unit/ Sodium Chloride 151.5 ml @ 0 mls/hr CONT PRN IV SEE I/O RECORD; Start 01/23/19 at 23:15 Magnesium Sulfate 50 ml @ 25 mls/hr 1X ONCE IV Last administered on 01/24/19at 08:29; Start 01/24/19 at 06:45; Stop 01/24/19 at 08:44; Status DC Piperacillin Sod/ Tazobactam Sod 3.375 gm/Sodium Chloride 50 ml @ 100 mls/hr Q6HRS IV Last administered on 01/24/19at 08:29; Start 01/24/19 at 08:00 Atorvastatin Calcium (Lipitor) 20 mg QHS PO ; Start 01/24/19 at 21:00 Sodium Chloride 1,000 ml @ 50 mls/hr Q20H IV ; Start 01/24/19 at 11:45 Allergies Allergies: Coded Allergies: No Known Drug Allergies (Unverified , 01/23/19) ROS Review of System UNABLE TO OBTAIN Physical Exam General: Other (SEDATED) HEENT: Atraumatic, PERRLA Lungs: Normal air movement, Other (INTUBATED) Heart: Other (IRREGULAR) Abdomen: Other (HYPOACTIVE) Extremities: Normal pulses Skin: No breakdown Neuro: Other (SEDATED) Psych/Mental Status: Other (SEDATED) MUSCULOSKELETAL: No joint tenderness, No swelling Vitals VITALS Vital Signs Date Time Temp Pulse Resp B/P (MAP) Pulse Ox O2 Delivery O2 Flow Rate FiO2 01/24/19 11:43 100 Ventilator 01/24/19 11:00 89.1 47 24 152/88 01/24/19 04:36 15.0 Labs Labs Laboratory Tests Test 01/23/19 15:15 01/23/19 15:20 01/23/19 15:25 01/23/19 15:26 O2 Saturation 97 % (92-99) Arterial Blood pH 7.04 (7.35-7.45) Arterial Blood pCO2 at Patient Temp 42 mmHg (35-46) Arterial Blood pO2 at Patient Temp 125 mmHg (65-108) Arterial Blood HCO3 11 mmol/L (21-28) Arterial Blood Base Excess -19 mmol/L (-3-3) FiO2 100 White Blood Count 19.5 x10^3/uL (4.0-11.0) Red Blood Count 5.25 x10^6/uL (4.30-5.70) Hemoglobin 16.7 g/dL (13.0-17.5) Hematocrit 49.9 % (39.0-53.0) Mean Corpuscular Volume 95 fL (79-100) Mean Corpuscular Hemoglobin 32 pg (25-35) Mean Corpuscular Hemoglobin Concent 33 g/dL (31-37) Red Cell Distribution Width 13.7 % (11.5-14.5) Platelet Count 164 x10^3/uL (140-400) Neutrophils (%) (Auto) 81 % (31-73) Lymphocytes (%) (Auto) 15 % (24-48) Monocytes (%) (Auto) 3 % (0-9) Eosinophils (%) (Auto) 0 % (0-3) Basophils (%) (Auto) 0 % (0-3) Neutrophils # (Auto) 15.8 x10^3/uL (1.8-7.7) Lymphocytes # (Auto) 2.9 x10^3/uL (1.0-4.8) Monocytes # (Auto) 0.6 x10^3/uL (0.0-1.1) Eosinophils # (Auto) 0.1 x10^3/uL (0.0-0.7) Basophils # (Auto) 0.1 x10^3/uL (0.0-0.2) Segmented Neutrophils % 65 % (35-66) Band Neutrophils % 11 % (0-9) Lymphocytes % 17 % (24-48) Monocytes % 5 % (0-10) Basophils % 1 % (0-3) Metamyelocytes % 1 % (0-0) Platelet Estimate Adequate (ADEQUATE) Prothrombin Time 15.3 SEC (11.7-14.0) Prothromb Time International Ratio 1.2 (0.8-1.1) D-Dimer (Keisha) 12.31 ug/mlFEU (0.00-0.50) Sodium Level 139 mmol/L (136-145) Potassium Level 2.8 mmol/L (3.5-5.1) Chloride Level 100 mmol/L (98-107) Carbon Dioxide Level 20 mmol/L (21-32) Anion Gap 19 (6-14) 17 mmol/L (6-14) Blood Urea Nitrogen 20 mg/dL (8-26) Creatinine 1.8 mg/dL (0.7-1.3) Estimated GFR (Cockcroft-Gault) 38.2 BUN/Creatinine Ratio 11 (6-20) Glucose Level 265 mg/dL (70-99) 264 mg/dL (70-99) Calcium Level 8.6 mg/dL (8.5-10.1) Magnesium Level 2.7 mg/dL (1.8-2.4) Total Bilirubin 0.8 mg/dL (0.2-1.0) Aspartate Amino Transf (AST/SGOT) 159 U/L (15-37) Alanine Aminotransferase (ALT/SGPT) 190 U/L (16-63) Alkaline Phosphatase 109 U/L (46-116) Creatine Kinase 213 U/L (39-308) Troponin I Quantitative 0.228 ng/mL (0.000-0.055) XW-Xxx-T-Type Natriuretic Peptide 306 pg/mL (0-124) Total Protein 6.9 g/dL (6.4-8.2) Albumin 3.5 g/dL (3.4-5.0) Albumin/Globulin Ratio 1.0 (1.0-1.7) Lipase 115 U/L (73-393) Bedside Hemoglobin 17.3 g/dL (14-18) Bedside Hematocrit 51 % (37-52) Bedside Sodium 133 mmol/L (135-145) Bedside Potassium 6.5 mmol/L (3.5-5.0) Bedside Chloride 101 mmol/L (98-110) Bedside Total CO2 23 mmol/L (23-32) Bedside Blood Urea Nitrogen 31 mg/dL (8-26) Bedside Creatinine 1.6 mg/dL (0.5-1.4) Lactic Acid Level 9.5 mmol/L (0.4-2.0) Bedside Ionized Calcium (Clover) 0.99 mmol/L (1.13-1.32) Triglycerides Level 102 mg/dL (0-150) Cholesterol Level 148 mg/dL (0-200) LDL Cholesterol, Calculated 84 mg/dL (0-100) VLDL Cholesterol, Calculated 20 mg/dL (0-40) Non-HDL Cholesterol Calculated 104 mg/dL (0-129) HDL Cholesterol 44 mg/dL (40-60) Cholesterol/HDL Ratio 3.4 Thyroid Stimulating Hormone (TSH) 10.832 uIU/mL (0.358-3.74) Bedside Troponin I 0.09 ng/ml (<0.08) Test 01/23/19 17:00 01/23/19 20:13 01/23/19 20:15 01/23/19 20:18 O2 Saturation 99 % (92-99) 98 % (92-99) Arterial Blood pH 7.33 (7.35-7.45) 7.38 (7.35-7.45) Arterial Blood pCO2 at Patient Temp 39 mmHg (35-46) 30 mmHg (35-46) Arterial Blood pO2 at Patient Temp 441 mmHg (65-108) 136 mmHg (65-108) Arterial Blood HCO3 20 mmol/L (21-28) 17 mmol/L (21-28) Arterial Blood Base Excess -6 mmol/L (-3-3) -6 mmol/L (-3-3) FiO2 100 50 Sodium Level 139 mmol/L (136-145) Potassium Level 4.8 mmol/L (3.5-5.1) Chloride Level 103 mmol/L (98-107) Carbon Dioxide Level 19 mmol/L (21-32) Anion Gap 17 (6-14) Blood Urea Nitrogen 21 mg/dL (8-26) Creatinine 1.1 mg/dL (0.7-1.3) Estimated GFR (Cockcroft-Gault) 67.4 Glucose Level 180 mg/dL (70-99) Lactic Acid Level 3.1 mmol/L (0.4-2.0) Calcium Level 8.2 mg/dL (8.5-10.1) Magnesium Level 1.9 mg/dL (1.8-2.4) Troponin I Quantitative 11.377 ng/mL (0.000-0.055) Arterial Blood pH (Temp corrected) 7.37 Arterial Blood pCO2 (Temp correct) 31 mmHg Arterial Blood pO2 (Temp corrected) 140 mmHg Glucose (Fingerstick) 167 mg/dL (70-99) Test 01/23/19 22:00 01/23/19 23:05 01/24/19 00:00 01/24/19 00:01 Urine Collection Type Unknown Urine Color Yellow Urine Clarity Clear Urine pH 5.0 Urine Specific [place] >=1.030 Urine Protein 100 mg/dL (NEG-TRACE) Urine Glucose (UA) 100 mg/dL (NEG) Urine Ketones (Stick) 15 mg/dL (NEG) Urine Blood Large (NEG) Urine Nitrite Negative (NEG) Urine Bilirubin Negative (NEG) Urine Urobilinogen Dipstick 0.2 mg/dL (0.2 mg/dL) Urine Leukocyte Esterase Negative (NEG) Urine RBC 20-40 /HPF (0-2) Urine WBC Occ /HPF (0-4) Urine Bacteria 0 /HPF (0-FEW) Urine Hyaline Casts Occasional /HPF Urine Mucus Slight /LPF Glucose (Fingerstick) 166 mg/dL (70-99) 212 mg/dL (70-99) 190 mg/dL (70-99) Urine Opiates Screen Neg (NEG) Urine Methadone Screen Neg (NEG) Urine Barbiturates Neg (NEG) Urine Phencyclidine Screen Neg (NEG) Urine Amphetamine/Methamphetamine Neg (NEG) Urine Benzodiazepines Screen Pos (NEG) Urine Cocaine Screen Neg (NEG) Urine Cannabinoids Screen Pos (NEG) Urine Ethyl Alcohol Neg (NEG) White Blood Count 25.5 x10^3/uL (4.0-11.0) Red Blood Count 4.82 x10^6/uL (4.30-5.70) Hemoglobin 15.3 g/dL (13.0-17.5) Hematocrit 44.8 % (39.0-53.0) Mean Corpuscular Volume 93 fL (79-100) Mean Corpuscular Hemoglobin 32 pg (25-35) Mean Corpuscular Hemoglobin Concent 34 g/dL (31-37) Red Cell Distribution Width 13.2 % (11.5-14.5) Platelet Count 160 x10^3/uL (140-400) Neutrophils (%) (Auto) 95 % (31-73) Lymphocytes (%) (Auto) 2 % (24-48) Monocytes (%) (Auto) 3 % (0-9) Eosinophils (%) (Auto) 0 % (0-3) Basophils (%) (Auto) 0 % (0-3) Neutrophils # (Auto) 24.2 x10^3/uL (1.8-7.7) Lymphocytes # (Auto) 0.4 x10^3/uL (1.0-4.8) Monocytes # (Auto) 0.8 x10^3/uL (0.0-1.1) Eosinophils # (Auto) 0.0 x10^3/uL (0.0-0.7) Basophils # (Auto) 0.1 x10^3/uL (0.0-0.2) Prothrombin Time 19.1 SEC (11.7-14.0) Prothromb Time International Ratio 1.6 (0.8-1.1) Activated Partial Thromboplast Time 47 SEC (24-38) Sodium Level 139 mmol/L (136-145) Potassium Level 4.1 mmol/L (3.5-5.1) Chloride Level 106 mmol/L (98-107) Carbon Dioxide Level 20 mmol/L (21-32) Anion Gap 13 (6-14) Blood Urea Nitrogen 19 mg/dL (8-26) Creatinine 1.1 mg/dL (0.7-1.3) Estimated GFR (Cockcroft-Gault) 67.4 Glucose Level 189 mg/dL (70-99) Calcium Level 7.5 mg/dL (8.5-10.1) Phosphorus Level 3.5 mg/dL (2.6-4.7) Magnesium Level 2.2 mg/dL (1.8-2.4) Ionized Calcium 1.02 mmol/L (1.13-1.32) Test 01/24/19 01:05 01/24/19 02:16 01/24/19 03:08 01/24/19 04:09 Glucose (Fingerstick) 86 mg/dL (70-99) 101 mg/dL (70-99) 137 mg/dL (70-99) 127 mg/dL (70-99) Test 01/24/19 05:41 01/24/19 05:45 01/24/19 06:11 01/24/19 08:30 Glucose (Fingerstick) 118 mg/dL (70-99) 110 mg/dL (70-99) White Blood Count 22.6 x10^3/uL (4.0-11.0) Red Blood Count 4.76 x10^6/uL (4.30-5.70) Hemoglobin 15.1 g/dL (13.0-17.5) Hematocrit 44.5 % (39.0-53.0) Mean Corpuscular Volume 93 fL (79-100) Mean Corpuscular Hemoglobin 32 pg (25-35) Mean Corpuscular Hemoglobin Concent 34 g/dL (31-37) Red Cell Distribution Width 13.5 % (11.5-14.5) Platelet Count 138 x10^3/uL (140-400) Neutrophils (%) (Auto) 92 % (31-73) Lymphocytes (%) (Auto) 4 % (24-48) Monocytes (%) (Auto) 4 % (0-9) Eosinophils (%) (Auto) 0 % (0-3) Basophils (%) (Auto) 0 % (0-3) Neutrophils # (Auto) 20.8 x10^3/uL (1.8-7.7) Lymphocytes # (Auto) 0.9 x10^3/uL (1.0-4.8) Monocytes # (Auto) 1.0 x10^3/uL (0.0-1.1) Eosinophils # (Auto) 0.0 x10^3/uL (0.0-0.7) Basophils # (Auto) 0.0 x10^3/uL (0.0-0.2) Prothrombin Time 16.4 SEC (11.7-14.0) Prothromb Time International Ratio 1.4 (0.8-1.1) Activated Partial Thromboplast Time 39 SEC (24-38) Sodium Level 142 mmol/L (136-145) Potassium Level 3.9 mmol/L (3.5-5.1) Chloride Level 110 mmol/L (98-107) Carbon Dioxide Level 22 mmol/L (21-32) Anion Gap 10 (6-14) Blood Urea Nitrogen 16 mg/dL (8-26) Creatinine 0.9 mg/dL (0.7-1.3) Estimated GFR (Cockcroft-Gault) 85.0 Glucose Level 134 mg/dL (70-99) Calcium Level 7.6 mg/dL (8.5-10.1) Ionized Calcium 1.06 mmol/L (1.13-1.32) Phosphorus Level 2.8 mg/dL (2.6-4.7) Magnesium Level 2.1 mg/dL (1.8-2.4) Total Bilirubin 1.8 mg/dL (0.2-1.0) Direct Bilirubin 0.5 mg/dL (0.0-0.2) Aspartate Amino Transf (AST/SGOT) 294 U/L (15-37) Alanine Aminotransferase (ALT/SGPT) 181 U/L (16-63) Alkaline Phosphatase 68 U/L (46-116) Troponin I Quantitative 27.704 ng/mL (0.000-0.055) Total Protein 5.6 g/dL (6.4-8.2) Albumin 2.9 g/dL (3.4-5.0) Procalcitonin 0.40 ng/mL (0.00-0.10) Free Thyroxine 1.25 ng/dL (0.76-1.46) Mycoplasma Serology (LAB) Negative (NEGATIVE) O2 Saturation 96 % (92-99) Arterial Blood pH 7.24 (7.35-7.45) Arterial Blood pH (Temp corrected) 7.27 Arterial Blood pCO2 at Patient Temp 48 mmHg (35-46) Arterial Blood pCO2 (Temp correct) 43 mmHg Arterial Blood pO2 at Patient Temp 94 mmHg (65-108) Arterial Blood pO2 (Temp corrected) 82 mmHg Arterial Blood HCO3 20 mmol/L (21-28) Arterial Blood Base Excess -8 mmol/L (-3-3) FiO2 40 Test 01/24/19 08:36 01/24/19 12:15 Glucose (Fingerstick) 94 mg/dL (70-99) White Blood Count 20.4 x10^3/uL (4.0-11.0) Red Blood Count 4.75 x10^6/uL (4.30-5.70) Hemoglobin 14.9 g/dL (13.0-17.5) Hematocrit 43.9 % (39.0-53.0) Mean Corpuscular Volume 92 fL (79-100) Mean Corpuscular Hemoglobin 32 pg (25-35) Mean Corpuscular Hemoglobin Concent 34 g/dL (31-37) Red Cell Distribution Width 13.3 % (11.5-14.5) Platelet Count 130 x10^3/uL (140-400) Laboratory Tests Test 01/23/19 15:15 01/23/19 15:20 01/23/19 15:25 01/23/19 15:26 O2 Saturation 97 % (92-99) Arterial Blood pH 7.04 (7.35-7.45) Arterial Blood pCO2 at Patient Temp 42 mmHg (35-46) Arterial Blood pO2 at Patient Temp 125 mmHg (65-108) Arterial Blood HCO3 11 mmol/L (21-28) Arterial Blood Base Excess -19 mmol/L (-3-3) FiO2 100 White Blood Count 19.5 x10^3/uL (4.0-11.0) Red Blood Count 5.25 x10^6/uL (4.30-5.70) Hemoglobin 16.7 g/dL (13.0-17.5) Hematocrit 49.9 % (39.0-53.0) Mean Corpuscular Volume 95 fL (79-100) Mean Corpuscular Hemoglobin 32 pg (25-35) Mean Corpuscular Hemoglobin Concent 33 g/dL (31-37) Red Cell Distribution Width 13.7 % (11.5-14.5) Platelet Count 164 x10^3/uL (140-400) Neutrophils (%) (Auto) 81 % (31-73) Lymphocytes (%) (Auto) 15 % (24-48) Monocytes (%) (Auto) 3 % (0-9) Eosinophils (%) (Auto) 0 % (0-3) Basophils (%) (Auto) 0 % (0-3) Neutrophils # (Auto) 15.8 x10^3/uL (1.8-7.7) Lymphocytes # (Auto) 2.9 x10^3/uL (1.0-4.8) Monocytes # (Auto) 0.6 x10^3/uL (0.0-1.1) Eosinophils # (Auto) 0.1 x10^3/uL (0.0-0.7) Basophils # (Auto) 0.1 x10^3/uL (0.0-0.2) Segmented Neutrophils % 65 % (35-66) Band Neutrophils % 11 % (0-9) Lymphocytes % 17 % (24-48) Monocytes % 5 % (0-10) Basophils % 1 % (0-3) Metamyelocytes % 1 % (0-0) Platelet Estimate Adequate (ADEQUATE) Prothrombin Time 15.3 SEC (11.7-14.0) Prothromb Time International Ratio 1.2 (0.8-1.1) D-Dimer (Keisha) 12.31 ug/mlFEU (0.00-0.50) Sodium Level 139 mmol/L (136-145) Potassium Level 2.8 mmol/L (3.5-5.1) Chloride Level 100 mmol/L (98-107) Carbon Dioxide Level 20 mmol/L (21-32) Anion Gap 19 (6-14) 17 mmol/L (6-14) Blood Urea Nitrogen 20 mg/dL (8-26) Creatinine 1.8 mg/dL (0.7-1.3) Estimated GFR (Cockcroft-Gault) 38.2 BUN/Creatinine Ratio 11 (6-20) Glucose Level 265 mg/dL (70-99) 264 mg/dL (70-99) Calcium Level 8.6 mg/dL (8.5-10.1) Magnesium Level 2.7 mg/dL (1.8-2.4) Total Bilirubin 0.8 mg/dL (0.2-1.0) Aspartate Amino Transf (AST/SGOT) 159 U/L (15-37) Alanine Aminotransferase (ALT/SGPT) 190 U/L (16-63) Alkaline Phosphatase 109 U/L (46-116) Creatine Kinase 213 U/L (39-308) Troponin I Quantitative 0.228 ng/mL (0.000-0.055) AK-Wll-E-Type Natriuretic Peptide 306 pg/mL (0-124) Total Protein 6.9 g/dL (6.4-8.2) Albumin 3.5 g/dL (3.4-5.0) Albumin/Globulin Ratio 1.0 (1.0-1.7) Lipase 115 U/L (73-393) Bedside Hemoglobin 17.3 g/dL (14-18) Bedside Hematocrit 51 % (37-52) Bedside Sodium 133 mmol/L (135-145) Bedside Potassium 6.5 mmol/L (3.5-5.0) Bedside Chloride 101 mmol/L (98-110) Bedside Total CO2 23 mmol/L (23-32) Bedside Blood Urea Nitrogen 31 mg/dL (8-26) Bedside Creatinine 1.6 mg/dL (0.5-1.4) Lactic Acid Level 9.5 mmol/L (0.4-2.0) Bedside Ionized Calcium (Clover) 0.99 mmol/L (1.13-1.32) Triglycerides Level 102 mg/dL (0-150) Cholesterol Level 148 mg/dL (0-200) LDL Cholesterol, Calculated 84 mg/dL (0-100) VLDL Cholesterol, Calculated 20 mg/dL (0-40) Non-HDL Cholesterol Calculated 104 mg/dL (0-129) HDL Cholesterol 44 mg/dL (40-60) Cholesterol/HDL Ratio 3.4 Thyroid Stimulating Hormone (TSH) 10.832 uIU/mL (0.358-3.74) Bedside Troponin I 0.09 ng/ml (<0.08) Test 01/23/19 17:00 01/23/19 20:13 01/23/19 20:15 01/23/19 20:18 O2 Saturation 99 % (92-99) 98 % (92-99) Arterial Blood pH 7.33 (7.35-7.45) 7.38 (7.35-7.45) Arterial Blood pCO2 at Patient Temp 39 mmHg (35-46) 30 mmHg (35-46) Arterial Blood pO2 at Patient Temp 441 mmHg (65-108) 136 mmHg (65-108) Arterial Blood HCO3 20 mmol/L (21-28) 17 mmol/L (21-28) Arterial Blood Base Excess -6 mmol/L (-3-3) -6 mmol/L (-3-3) FiO2 100 50 Sodium Level 139 mmol/L (136-145) Potassium Level 4.8 mmol/L (3.5-5.1) Chloride Level 103 mmol/L (98-107) Carbon Dioxide Level 19 mmol/L (21-32) Anion Gap 17 (6-14) Blood Urea Nitrogen 21 mg/dL (8-26) Creatinine 1.1 mg/dL (0.7-1.3) Estimated GFR (Cockcroft-Gault) 67.4 Glucose Level 180 mg/dL (70-99) Lactic Acid Level 3.1 mmol/L (0.4-2.0) Calcium Level 8.2 mg/dL (8.5-10.1) Magnesium Level 1.9 mg/dL (1.8-2.4) Troponin I Quantitative 11.377 ng/mL (0.000-0.055) Arterial Blood pH (Temp corrected) 7.37 Arterial Blood pCO2 (Temp correct) 31 mmHg Arterial Blood pO2 (Temp corrected) 140 mmHg Glucose (Fingerstick) 167 mg/dL (70-99) Test 01/23/19 22:00 01/23/19 23:05 01/24/19 00:00 01/24/19 00:01 Urine Collection Type Unknown Urine Color Yellow Urine Clarity Clear Urine pH 5.0 Urine Specific Monroe >=1.030 Urine Protein 100 mg/dL (NEG-TRACE) Urine Glucose (UA) 100 mg/dL (NEG) Urine Ketones (Stick) 15 mg/dL (NEG) Urine Blood Large (NEG) Urine Nitrite Negative (NEG) Urine Bilirubin Negative (NEG) Urine Urobilinogen Dipstick 0.2 mg/dL (0.2 mg/dL) Urine Leukocyte Esterase Negative (NEG) Urine RBC 20-40 /HPF (0-2) Urine WBC Occ /HPF (0-4) Urine Bacteria 0 /HPF (0-FEW) Urine Hyaline Casts Occasional /HPF Urine Mucus Slight /LPF Glucose (Fingerstick) 166 mg/dL (70-99) 212 mg/dL (70-99) 190 mg/dL (70-99) Urine Opiates Screen Neg (NEG) Urine Methadone Screen Neg (NEG) Urine Barbiturates Neg (NEG) Urine Phencyclidine Screen Neg (NEG) Urine Amphetamine/Methamphetamine Neg (NEG) Urine Benzodiazepines Screen Pos (NEG) Urine Cocaine Screen Neg (NEG) Urine Cannabinoids Screen Pos (NEG) Urine Ethyl Alcohol Neg (NEG) White Blood Count 25.5 x10^3/uL (4.0-11.0) Red Blood Count 4.82 x10^6/uL (4.30-5.70) Hemoglobin 15.3 g/dL (13.0-17.5) Hematocrit 44.8 % (39.0-53.0) Mean Corpuscular Volume 93 fL (79-100) Mean Corpuscular Hemoglobin 32 pg (25-35) Mean Corpuscular Hemoglobin Concent 34 g/dL (31-37) Red Cell Distribution Width 13.2 % (11.5-14.5) Platelet Count 160 x10^3/uL (140-400) Neutrophils (%) (Auto) 95 % (31-73) Lymphocytes (%) (Auto) 2 % (24-48) Monocytes (%) (Auto) 3 % (0-9) Eosinophils (%) (Auto) 0 % (0-3) Basophils (%) (Auto) 0 % (0-3) Neutrophils # (Auto) 24.2 x10^3/uL (1.8-7.7) Lymphocytes # (Auto) 0.4 x10^3/uL (1.0-4.8) Monocytes # (Auto) 0.8 x10^3/uL (0.0-1.1) Eosinophils # (Auto) 0.0 x10^3/uL (0.0-0.7) Basophils # (Auto) 0.1 x10^3/uL (0.0-0.2) Prothrombin Time 19.1 SEC (11.7-14.0) Prothromb Time International Ratio 1.6 (0.8-1.1) Activated Partial Thromboplast Time 47 SEC (24-38) Sodium Level 139 mmol/L (136-145) Potassium Level 4.1 mmol/L (3.5-5.1) Chloride Level 106 mmol/L (98-107) Carbon Dioxide Level 20 mmol/L (21-32) Anion Gap 13 (6-14) Blood Urea Nitrogen 19 mg/dL (8-26) Creatinine 1.1 mg/dL (0.7-1.3) Estimated GFR (Cockcroft-Gault) 67.4 Glucose Level 189 mg/dL (70-99) Calcium Level 7.5 mg/dL (8.5-10.1) Phosphorus Level 3.5 mg/dL (2.6-4.7) Magnesium Level 2.2 mg/dL (1.8-2.4) Ionized Calcium 1.02 mmol/L (1.13-1.32) Test 01/24/19 01:05 01/24/19 02:16 01/24/19 03:08 01/24/19 04:09 Glucose (Fingerstick) 86 mg/dL (70-99) 101 mg/dL (70-99) 137 mg/dL (70-99) 127 mg/dL (70-99) Test 01/24/19 05:41 01/24/19 05:45 01/24/19 06:11 01/24/19 08:30 Glucose (Fingerstick) 118 mg/dL (70-99) 110 mg/dL (70-99) White Blood Count 22.6 x10^3/uL (4.0-11.0) Red Blood Count 4.76 x10^6/uL (4.30-5.70) Hemoglobin 15.1 g/dL (13.0-17.5) Hematocrit 44.5 % (39.0-53.0) Mean Corpuscular Volume 93 fL (79-100) Mean Corpuscular Hemoglobin 32 pg (25-35) Mean Corpuscular Hemoglobin Concent 34 g/dL (31-37) Red Cell Distribution Width 13.5 % (11.5-14.5) Platelet Count 138 x10^3/uL (140-400) Neutrophils (%) (Auto) 92 % (31-73) Lymphocytes (%) (Auto) 4 % (24-48) Monocytes (%) (Auto) 4 % (0-9) Eosinophils (%) (Auto) 0 % (0-3) Basophils (%) (Auto) 0 % (0-3) Neutrophils # (Auto) 20.8 x10^3/uL (1.8-7.7) Lymphocytes # (Auto) 0.9 x10^3/uL (1.0-4.8) Monocytes # (Auto) 1.0 x10^3/uL (0.0-1.1) Eosinophils # (Auto) 0.0 x10^3/uL (0.0-0.7) Basophils # (Auto) 0.0 x10^3/uL (0.0-0.2) Prothrombin Time 16.4 SEC (11.7-14.0) Prothromb Time International Ratio 1.4 (0.8-1.1) Activated Partial Thromboplast Time 39 SEC (24-38) Sodium Level 142 mmol/L (136-145) Potassium Level 3.9 mmol/L (3.5-5.1) Chloride Level 110 mmol/L (98-107) Carbon Dioxide Level 22 mmol/L (21-32) Anion Gap 10 (6-14) Blood Urea Nitrogen 16 mg/dL (8-26) Creatinine 0.9 mg/dL (0.7-1.3) Estimated GFR (Cockcroft-Gault) 85.0 Glucose Level 134 mg/dL (70-99) Calcium Level 7.6 mg/dL (8.5-10.1) Ionized Calcium 1.06 mmol/L (1.13-1.32) Phosphorus Level 2.8 mg/dL (2.6-4.7) Magnesium Level 2.1 mg/dL (1.8-2.4) Total Bilirubin 1.8 mg/dL (0.2-1.0) Direct Bilirubin 0.5 mg/dL (0.0-0.2) Aspartate Amino Transf (AST/SGOT) 294 U/L (15-37) Alanine Aminotransferase (ALT/SGPT) 181 U/L (16-63) Alkaline Phosphatase 68 U/L (46-116) Troponin I Quantitative 27.704 ng/mL (0.000-0.055) Total Protein 5.6 g/dL (6.4-8.2) Albumin 2.9 g/dL (3.4-5.0) Procalcitonin 0.40 ng/mL (0.00-0.10) Free Thyroxine 1.25 ng/dL (0.76-1.46) Mycoplasma Serology (LAB) Negative (NEGATIVE) O2 Saturation 96 % (92-99) Arterial Blood pH 7.24 (7.35-7.45) Arterial Blood pH (Temp corrected) 7.27 Arterial Blood pCO2 at Patient Temp 48 mmHg (35-46) Arterial Blood pCO2 (Temp correct) 43 mmHg Arterial Blood pO2 at Patient Temp 94 mmHg (65-108) Arterial Blood pO2 (Temp corrected) 82 mmHg Arterial Blood HCO3 20 mmol/L (21-28) Arterial Blood Base Excess -8 mmol/L (-3-3) FiO2 40 Test 01/24/19 08:36 01/24/19 12:15 Glucose (Fingerstick) 94 mg/dL (70-99) White Blood Count 20.4 x10^3/uL (4.0-11.0) Red Blood Count 4.75 x10^6/uL (4.30-5.70) Hemoglobin 14.9 g/dL (13.0-17.5) Hematocrit 43.9 % (39.0-53.0) Mean Corpuscular Volume 92 fL (79-100) Mean Corpuscular Hemoglobin 32 pg (25-35) Mean Corpuscular Hemoglobin Concent 34 g/dL (31-37) Red Cell Distribution Width 13.3 % (11.5-14.5) Platelet Count 130 x10^3/uL (140-400) Assessment/Plan Assessment/Plan IMP S/P CODE BLUE LACTIC ACIDOSIS ACUTE RESP ALKALOSIS HYPOKALEMIA MARIANNE WITH NO CKD HX ACUTE HYPOXIC RESP FAILURE CAD WITH ARRHYTHMIA S/P PTCA AND STENT LEUCOCYTOSIS-REACTIVE VS INFECTION NEW DX OF DM II ABNORMAL LFT'S-PROB SHOCK LIVER PLAN ANTIBIOTICS HYDRATION CORRECT ELECTROLYTES PRESSORS NEEDED EXPECT RENAL RECOVERY IF HEMODYNAMICALLY STABLE WILL FOLLOW D/W CURT ROSENBAUM MD Jan 24, 2019 12:51
[2019-01-24] MEDS ORDERED: MAGNESIUM SULFATE 1GM 100 ML IV ONE (13:30)
[2019-01-24 13:34] LABS: BASE EXCESS ABG -5 mmol/L (-3-3); HCO3 ABG 18 mmol/L (21-28); PCO2 ABG 29 mmHg (35-46); PO2 ABG 108 mmHg (65-108); SAT O2 ABG 98 % (92-99)
--- NOTE | 2019-01-24 13:34 | CARD ---
MR#: [id number] Date of Study: 01/23/2019 Ordering Physician: ALFA GRAY, Referring Physician: ALFA GRAY, Sherif: RT Yonny (R) APPROVED REPORT Procedures Selective coronary angiogram. 3 drug-eluting stents placed to the left circumflex. The patient is a 63-year-old male who was admitted to the hospital with recurrent episodes of ventric ular fibrillation. The patient was intubated and placed on a ventilator. He was treated with amiodaro ne. CT scans of the chest and abdomen showed no acute processes. Potassium initially was low at 2.8 a nd was replaced. He was continued on amiodarone IV. Risks and benefits of heart catheterization were discussed with the patient's family. They agreed to proceed. After informed consent was obtained the patient was brought to the heart catheterization lab. The are a of the right femoral artery was prepared in the usual manner with Betadine, sterile draping and loc al anesthetic. An 18-gauge needle was used to enter the right femoral artery, a wire placed and a 6 F rench sheath placed over the wire. An 18-gauge needle was then used to engage the right femoral vein, a wire placed and a 5 Jordanian sheath placed over the wire. With the assistance of the J-wire a 6 Fren ch JL4 diagnostic catheter was used to engage the left coronary system and sequential injections in v arious views were obtained. A 6 Jordanian Jeffrey right diagnostic catheter was used to engage the righ t coronary artery and an injection was performed. Review of the images showed a mid occlusion of the left circumflex and we proceeded to revascularize. An XB 3.5 guide was used to engage the left system after Angiomax as per protocol was administered. A Semantics3water wire was used to cross the lesion. Initial dilatation was with a 2.5 x 15 trek balloon with 3 inflations with 10 matt maximum and maximum time of 15 seconds. After predilatation the area of the left circumflex appeared to have a possible dissection. The patient initially had a 2.5 x 23 Xience Antonina stent deployed at 15 matt for 15 seconds. There was some haziness both proximally and distally and an additional 2.5 x 12 stent was placed in overlapping fashion distally with an inflation at 15 a tm for 15 seconds and an overlapping inflation at 15 matt for 10 seconds. The proximal area was then c overed with a 2.5 x 15 stent with an inflation at 15 matt for 15 seconds and in overlapping inflation of 15 matt for 10 seconds. Final result showed resolution of the patient's occlusion. The guiding syst em was removed from the patient. Sheaths were sutured into place. The patient was then moved to the i ntensive care unit in critical condition. Findings. Hemodynamics. Aortic root pressure of 102/72. Coronaries. Left main. The left main was a normal-size long vessel with a distal 20% lesion. Left anterior descending. The LAD was a moderate size vessel with normal distribution of the mid 10% lesion. Left circumflex. The left circumflex had a mid occlusion. Right coronary artery. The right coronary was a large dominant vessel with a 10% mid lesion. <Conclusion> Mid occlusion of the left circumflex vessel. Mild disease in the LAD and right coronary artery. Successful stenting �3 of the left circumflex with a 0% residual. Signed by : Daniel Simms MD Electronically Approved : 01/24/2019 13:34:06
[2019-01-24 13:35] LABS: CORRECTED PCO2 ABG 25 mmHg; CORRECTED PH ABG 7.47; CORRECTED PO2 ABG 88 mmHg
[2019-01-24 13:41] LABS: FIO2 ABG 40
[2019-01-24] MEDS: MIDAZOLAM 100mg/100ml NS BAG 100 ML IV PRN (13:52)
--- NOTE | 2019-01-24 13:59 | PDOC ---
PULMONARY PROGRESS NOTES Vitals Vital Signs Date Time Temp Pulse Resp B/P (MAP) Pulse Ox O2 Delivery O2 Flow Rate FiO2 01/24/19 13:00 92.2 52 24 97/74 100 Ventilator 01/24/19 04:36 15.0 Lungs: Clear Cardiovascular: S1, S2 Labs Laboratory Tests Test 01/23/19 15:15 01/23/19 15:20 01/23/19 15:25 01/23/19 15:26 O2 Saturation 97 % (92-99) Arterial Blood pH 7.04 (7.35-7.45) Arterial Blood pCO2 at Patient Temp 42 mmHg (35-46) Arterial Blood pO2 at Patient Temp 125 mmHg (65-108) Arterial Blood HCO3 11 mmol/L (21-28) Arterial Blood Base Excess -19 mmol/L (-3-3) FiO2 100 White Blood Count 19.5 x10^3/uL (4.0-11.0) Red Blood Count 5.25 x10^6/uL (4.30-5.70) Hemoglobin 16.7 g/dL (13.0-17.5) Hematocrit 49.9 % (39.0-53.0) Mean Corpuscular Volume 95 fL (79-100) Mean Corpuscular Hemoglobin 32 pg (25-35) Mean Corpuscular Hemoglobin Concent 33 g/dL (31-37) Red Cell Distribution Width 13.7 % (11.5-14.5) Platelet Count 164 x10^3/uL (140-400) Neutrophils (%) (Auto) 81 % (31-73) Lymphocytes (%) (Auto) 15 % (24-48) Monocytes (%) (Auto) 3 % (0-9) Eosinophils (%) (Auto) 0 % (0-3) Basophils (%) (Auto) 0 % (0-3) Neutrophils # (Auto) 15.8 x10^3/uL (1.8-7.7) Lymphocytes # (Auto) 2.9 x10^3/uL (1.0-4.8) Monocytes # (Auto) 0.6 x10^3/uL (0.0-1.1) Eosinophils # (Auto) 0.1 x10^3/uL (0.0-0.7) Basophils # (Auto) 0.1 x10^3/uL (0.0-0.2) Segmented Neutrophils % 65 % (35-66) Band Neutrophils % 11 % (0-9) Lymphocytes % 17 % (24-48) Monocytes % 5 % (0-10) Basophils % 1 % (0-3) Metamyelocytes % 1 % (0-0) Platelet Estimate Adequate (ADEQUATE) Prothrombin Time 15.3 SEC (11.7-14.0) Prothromb Time International Ratio 1.2 (0.8-1.1) D-Dimer (Keisha) 12.31 ug/mlFEU (0.00-0.50) Sodium Level 139 mmol/L (136-145) Potassium Level 2.8 mmol/L (3.5-5.1) Chloride Level 100 mmol/L (98-107) Carbon Dioxide Level 20 mmol/L (21-32) Anion Gap 19 (6-14) 17 mmol/L (6-14) Blood Urea Nitrogen 20 mg/dL (8-26) Creatinine 1.8 mg/dL (0.7-1.3) Estimated GFR (Cockcroft-Gault) 38.2 BUN/Creatinine Ratio 11 (6-20) Glucose Level 265 mg/dL (70-99) 264 mg/dL (70-99) Calcium Level 8.6 mg/dL (8.5-10.1) Magnesium Level 2.7 mg/dL (1.8-2.4) Total Bilirubin 0.8 mg/dL (0.2-1.0) Aspartate Amino Transf (AST/SGOT) 159 U/L (15-37) Alanine Aminotransferase (ALT/SGPT) 190 U/L (16-63) Alkaline Phosphatase 109 U/L (46-116) Creatine Kinase 213 U/L (39-308) Troponin I Quantitative 0.228 ng/mL (0.000-0.055) VA-Qub-A-Type Natriuretic Peptide 306 pg/mL (0-124) Total Protein 6.9 g/dL (6.4-8.2) Albumin 3.5 g/dL (3.4-5.0) Albumin/Globulin Ratio 1.0 (1.0-1.7) Lipase 115 U/L (73-393) Bedside Hemoglobin 17.3 g/dL (14-18) Bedside Hematocrit 51 % (37-52) Bedside Sodium 133 mmol/L (135-145) Bedside Potassium 6.5 mmol/L (3.5-5.0) Bedside Chloride 101 mmol/L (98-110) Bedside Total CO2 23 mmol/L (23-32) Bedside Blood Urea Nitrogen 31 mg/dL (8-26) Bedside Creatinine 1.6 mg/dL (0.5-1.4) Lactic Acid Level 9.5 mmol/L (0.4-2.0) Bedside Ionized Calcium (Clover) 0.99 mmol/L (1.13-1.32) Triglycerides Level 102 mg/dL (0-150) Cholesterol Level 148 mg/dL (0-200) LDL Cholesterol, Calculated 84 mg/dL (0-100) VLDL Cholesterol, Calculated 20 mg/dL (0-40) Non-HDL Cholesterol Calculated 104 mg/dL (0-129) HDL Cholesterol 44 mg/dL (40-60) Cholesterol/HDL Ratio 3.4 Thyroid Stimulating Hormone (TSH) 10.832 uIU/mL (0.358-3.74) Bedside Troponin I 0.09 ng/ml (<0.08) Test 01/23/19 17:00 01/23/19 20:13 01/23/19 20:15 01/23/19 20:18 O2 Saturation 99 % (92-99) 98 % (92-99) Arterial Blood pH 7.33 (7.35-7.45) 7.38 (7.35-7.45) Arterial Blood pCO2 at Patient Temp 39 mmHg (35-46) 30 mmHg (35-46) Arterial Blood pO2 at Patient Temp 441 mmHg (65-108) 136 mmHg (65-108) Arterial Blood HCO3 20 mmol/L (21-28) 17 mmol/L (21-28) Arterial Blood Base Excess -6 mmol/L (-3-3) -6 mmol/L (-3-3) FiO2 100 50 Sodium Level 139 mmol/L (136-145) Potassium Level 4.8 mmol/L (3.5-5.1) Chloride Level 103 mmol/L (98-107) Carbon Dioxide Level 19 mmol/L (21-32) Anion Gap 17 (6-14) Blood Urea Nitrogen 21 mg/dL (8-26) Creatinine 1.1 mg/dL (0.7-1.3) Estimated GFR (Cockcroft-Gault) 67.4 Glucose Level 180 mg/dL (70-99) Lactic Acid Level 3.1 mmol/L (0.4-2.0) Calcium Level 8.2 mg/dL (8.5-10.1) Magnesium Level 1.9 mg/dL (1.8-2.4) Troponin I Quantitative 11.377 ng/mL (0.000-0.055) Arterial Blood pH (Temp corrected) 7.37 Arterial Blood pCO2 (Temp correct) 31 mmHg Arterial Blood pO2 (Temp corrected) 140 mmHg Glucose (Fingerstick) 167 mg/dL (70-99) Test 01/23/19 22:00 01/23/19 23:05 01/24/19 00:00 01/24/19 00:01 Urine Collection Type Unknown Urine Color Yellow Urine Clarity Clear Urine pH 5.0 Urine Specific [place] >=1.030 Urine Protein 100 mg/dL (NEG-TRACE) Urine Glucose (UA) 100 mg/dL (NEG) Urine Ketones (Stick) 15 mg/dL (NEG) Urine Blood Large (NEG) Urine Nitrite Negative (NEG) Urine Bilirubin Negative (NEG) Urine Urobilinogen Dipstick 0.2 mg/dL (0.2 mg/dL) Urine Leukocyte Esterase Negative (NEG) Urine RBC 20-40 /HPF (0-2) Urine WBC Occ /HPF (0-4) Urine Bacteria 0 /HPF (0-FEW) Urine Hyaline Casts Occasional /HPF Urine Mucus Slight /LPF Glucose (Fingerstick) 166 mg/dL (70-99) 212 mg/dL (70-99) 190 mg/dL (70-99) Urine Opiates Screen Neg (NEG) Urine Methadone Screen Neg (NEG) Urine Barbiturates Neg (NEG) Urine Phencyclidine Screen Neg (NEG) Urine Amphetamine/Methamphetamine Neg (NEG) Urine Benzodiazepines Screen Pos (NEG) Urine Cocaine Screen Neg (NEG) Urine Cannabinoids Screen Pos (NEG) Urine Ethyl Alcohol Neg (NEG) White Blood Count 25.5 x10^3/uL (4.0-11.0) Red Blood Count 4.82 x10^6/uL (4.30-5.70) Hemoglobin 15.3 g/dL (13.0-17.5) Hematocrit 44.8 % (39.0-53.0) Mean Corpuscular Volume 93 fL (79-100) Mean Corpuscular Hemoglobin 32 pg (25-35) Mean Corpuscular Hemoglobin Concent 34 g/dL (31-37) Red Cell Distribution Width 13.2 % (11.5-14.5) Platelet Count 160 x10^3/uL (140-400) Neutrophils (%) (Auto) 95 % (31-73) Lymphocytes (%) (Auto) 2 % (24-48) Monocytes (%) (Auto) 3 % (0-9) Eosinophils (%) (Auto) 0 % (0-3) Basophils (%) (Auto) 0 % (0-3) Neutrophils # (Auto) 24.2 x10^3/uL (1.8-7.7) Lymphocytes # (Auto) 0.4 x10^3/uL (1.0-4.8) Monocytes # (Auto) 0.8 x10^3/uL (0.0-1.1) Eosinophils # (Auto) 0.0 x10^3/uL (0.0-0.7) Basophils # (Auto) 0.1 x10^3/uL (0.0-0.2) Prothrombin Time 19.1 SEC (11.7-14.0) Prothromb Time International Ratio 1.6 (0.8-1.1) Activated Partial Thromboplast Time 47 SEC (24-38) Sodium Level 139 mmol/L (136-145) Potassium Level 4.1 mmol/L (3.5-5.1) Chloride Level 106 mmol/L (98-107) Carbon Dioxide Level 20 mmol/L (21-32) Anion Gap 13 (6-14) Blood Urea Nitrogen 19 mg/dL (8-26) Creatinine 1.1 mg/dL (0.7-1.3) Estimated GFR (Cockcroft-Gault) 67.4 Glucose Level 189 mg/dL (70-99) Calcium Level 7.5 mg/dL (8.5-10.1) Phosphorus Level 3.5 mg/dL (2.6-4.7) Magnesium Level 2.2 mg/dL (1.8-2.4) Ionized Calcium 1.02 mmol/L (1.13-1.32) Test 01/24/19 01:05 01/24/19 02:16 01/24/19 03:08 01/24/19 04:09 Glucose (Fingerstick) 86 mg/dL (70-99) 101 mg/dL (70-99) 137 mg/dL (70-99) 127 mg/dL (70-99) Test 01/24/19 05:41 01/24/19 05:45 01/24/19 06:11 01/24/19 08:30 Glucose (Fingerstick) 118 mg/dL (70-99) 110 mg/dL (70-99) White Blood Count 22.6 x10^3/uL (4.0-11.0) Red Blood Count 4.76 x10^6/uL (4.30-5.70) Hemoglobin 15.1 g/dL (13.0-17.5) Hematocrit 44.5 % (39.0-53.0) Mean Corpuscular Volume 93 fL (79-100) Mean Corpuscular Hemoglobin 32 pg (25-35) Mean Corpuscular Hemoglobin Concent 34 g/dL (31-37) Red Cell Distribution Width 13.5 % (11.5-14.5) Platelet Count 138 x10^3/uL (140-400) Neutrophils (%) (Auto) 92 % (31-73) Lymphocytes (%) (Auto) 4 % (24-48) Monocytes (%) (Auto) 4 % (0-9) Eosinophils (%) (Auto) 0 % (0-3) Basophils (%) (Auto) 0 % (0-3) Neutrophils # (Auto) 20.8 x10^3/uL (1.8-7.7) Lymphocytes # (Auto) 0.9 x10^3/uL (1.0-4.8) Monocytes # (Auto) 1.0 x10^3/uL (0.0-1.1) Eosinophils # (Auto) 0.0 x10^3/uL (0.0-0.7) Basophils # (Auto) 0.0 x10^3/uL (0.0-0.2) Prothrombin Time 16.4 SEC (11.7-14.0) Prothromb Time International Ratio 1.4 (0.8-1.1) Activated Partial Thromboplast Time 39 SEC (24-38) Sodium Level 142 mmol/L (136-145) Potassium Level 3.9 mmol/L (3.5-5.1) Chloride Level 110 mmol/L (98-107) Carbon Dioxide Level 22 mmol/L (21-32) Anion Gap 10 (6-14) Blood Urea Nitrogen 16 mg/dL (8-26) Creatinine 0.9 mg/dL (0.7-1.3) Estimated GFR (Cockcroft-Gault) 85.0 Glucose Level 134 mg/dL (70-99) Calcium Level 7.6 mg/dL (8.5-10.1) Ionized Calcium 1.06 mmol/L (1.13-1.32) Phosphorus Level 2.8 mg/dL (2.6-4.7) Magnesium Level 2.1 mg/dL (1.8-2.4) Total Bilirubin 1.8 mg/dL (0.2-1.0) Direct Bilirubin 0.5 mg/dL (0.0-0.2) Aspartate Amino Transf (AST/SGOT) 294 U/L (15-37) Alanine Aminotransferase (ALT/SGPT) 181 U/L (16-63) Alkaline Phosphatase 68 U/L (46-116) Troponin I Quantitative 27.704 ng/mL (0.000-0.055) Total Protein 5.6 g/dL (6.4-8.2) Albumin 2.9 g/dL (3.4-5.0) Procalcitonin 0.40 ng/mL (0.00-0.10) Free Thyroxine 1.25 ng/dL (0.76-1.46) Mycoplasma Serology (LAB) Negative (NEGATIVE) O2 Saturation 96 % (92-99) Arterial Blood pH 7.24 (7.35-7.45) Arterial Blood pH (Temp corrected) 7.27 Arterial Blood pCO2 at Patient Temp 48 mmHg (35-46) Arterial Blood pCO2 (Temp correct) 43 mmHg Arterial Blood pO2 at Patient Temp 94 mmHg (65-108) Arterial Blood pO2 (Temp corrected) 82 mmHg Arterial Blood HCO3 20 mmol/L (21-28) Arterial Blood Base Excess -8 mmol/L (-3-3) FiO2 40 Test 01/24/19 08:36 01/24/19 12:15 01/24/19 13:30 Glucose (Fingerstick) 94 mg/dL (70-99) White Blood Count 20.4 x10^3/uL (4.0-11.0) Red Blood Count 4.75 x10^6/uL (4.30-5.70) Hemoglobin 14.9 g/dL (13.0-17.5) Hematocrit 43.9 % (39.0-53.0) Mean Corpuscular Volume 92 fL (79-100) Mean Corpuscular Hemoglobin 32 pg (25-35) Mean Corpuscular Hemoglobin Concent 34 g/dL (31-37) Red Cell Distribution Width 13.3 % (11.5-14.5) Platelet Count 130 x10^3/uL (140-400) Prothrombin Time 16.0 SEC (11.7-14.0) Prothromb Time International Ratio 1.3 (0.8-1.1) Activated Partial Thromboplast Time 51 SEC (24-38) Sodium Level 141 mmol/L (136-145) Potassium Level 3.8 mmol/L (3.5-5.1) Chloride Level 108 mmol/L (98-107) Carbon Dioxide Level 22 mmol/L (21-32) Anion Gap 11 (6-14) Blood Urea Nitrogen 15 mg/dL (8-26) Creatinine 0.7 mg/dL (0.7-1.3) Estimated GFR (Cockcroft-Gault) 113.5 Glucose Level 119 mg/dL (70-99) Calcium Level 7.6 mg/dL (8.5-10.1) Ionized Calcium 1.04 mmol/L (1.13-1.32) Phosphorus Level 2.1 mg/dL (2.6-4.7) Magnesium Level 2.5 mg/dL (1.8-2.4) O2 Saturation 98 % (92-99) Arterial Blood pH 7.41 (7.35-7.45) Arterial Blood pH (Temp corrected) 7.47 Arterial Blood pCO2 at Patient Temp 29 mmHg (35-46) Arterial Blood pCO2 (Temp correct) 25 mmHg Arterial Blood pO2 at Patient Temp 108 mmHg (65-108) Arterial Blood pO2 (Temp corrected) 88 mmHg Arterial Blood HCO3 18 mmol/L (21-28) Arterial Blood Base Excess -5 mmol/L (-3-3) FiO2 40 Laboratory Tests Test 01/23/19 15:15 01/23/19 15:20 01/23/19 15:25 01/23/19 15:26 O2 Saturation 97 % (92-99) Arterial Blood pH 7.04 (7.35-7.45) Arterial Blood pCO2 at Patient Temp 42 mmHg (35-46) Arterial Blood pO2 at Patient Temp 125 mmHg (65-108) Arterial Blood HCO3 11 mmol/L (21-28) Arterial Blood Base Excess -19 mmol/L (-3-3) FiO2 100 White Blood Count 19.5 x10^3/uL (4.0-11.0) Red Blood Count 5.25 x10^6/uL (4.30-5.70) Hemoglobin 16.7 g/dL (13.0-17.5) Hematocrit 49.9 % (39.0-53.0) Mean Corpuscular Volume 95 fL (79-100) Mean Corpuscular Hemoglobin 32 pg (25-35) Mean Corpuscular Hemoglobin Concent 33 g/dL (31-37) Red Cell Distribution Width 13.7 % (11.5-14.5) Platelet Count 164 x10^3/uL (140-400) Neutrophils (%) (Auto) 81 % (31-73) Lymphocytes (%) (Auto) 15 % (24-48) Monocytes (%) (Auto) 3 % (0-9) Eosinophils (%) (Auto) 0 % (0-3) Basophils (%) (Auto) 0 % (0-3) Neutrophils # (Auto) 15.8 x10^3/uL (1.8-7.7) Lymphocytes # (Auto) 2.9 x10^3/uL (1.0-4.8) Monocytes # (Auto) 0.6 x10^3/uL (0.0-1.1) Eosinophils # (Auto) 0.1 x10^3/uL (0.0-0.7) Basophils # (Auto) 0.1 x10^3/uL (0.0-0.2) Segmented Neutrophils % 65 % (35-66) Band Neutrophils % 11 % (0-9) Lymphocytes % 17 % (24-48) Monocytes % 5 % (0-10) Basophils % 1 % (0-3) Metamyelocytes % 1 % (0-0) Platelet Estimate Adequate (ADEQUATE) Prothrombin Time 15.3 SEC (11.7-14.0) Prothromb Time International Ratio 1.2 (0.8-1.1) D-Dimer (Keisha) 12.31 ug/mlFEU (0.00-0.50) Sodium Level 139 mmol/L (136-145) Potassium Level 2.8 mmol/L (3.5-5.1) Chloride Level 100 mmol/L (98-107) Carbon Dioxide Level 20 mmol/L (21-32) Anion Gap 19 (6-14) 17 mmol/L (6-14) Blood Urea Nitrogen 20 mg/dL (8-26) Creatinine 1.8 mg/dL (0.7-1.3) Estimated GFR (Cockcroft-Gault) 38.2 BUN/Creatinine Ratio 11 (6-20) Glucose Level 265 mg/dL (70-99) 264 mg/dL (70-99) Calcium Level 8.6 mg/dL (8.5-10.1) Magnesium Level 2.7 mg/dL (1.8-2.4) Total Bilirubin 0.8 mg/dL (0.2-1.0) Aspartate Amino Transf (AST/SGOT) 159 U/L (15-37) Alanine Aminotransferase (ALT/SGPT) 190 U/L (16-63) Alkaline Phosphatase 109 U/L (46-116) Creatine Kinase 213 U/L (39-308) Troponin I Quantitative 0.228 ng/mL (0.000-0.055) RQ-Fzr-C-Type Natriuretic Peptide 306 pg/mL (0-124) Total Protein 6.9 g/dL (6.4-8.2) Albumin 3.5 g/dL (3.4-5.0) Albumin/Globulin Ratio 1.0 (1.0-1.7) Lipase 115 U/L (73-393) Bedside Hemoglobin 17.3 g/dL (14-18) Bedside Hematocrit 51 % (37-52) Bedside Sodium 133 mmol/L (135-145) Bedside Potassium 6.5 mmol/L (3.5-5.0) Bedside Chloride 101 mmol/L (98-110) Bedside Total CO2 23 mmol/L (23-32) Bedside Blood Urea Nitrogen 31 mg/dL (8-26) Bedside Creatinine 1.6 mg/dL (0.5-1.4) Lactic Acid Level 9.5 mmol/L (0.4-2.0) Bedside Ionized Calcium (Clover) 0.99 mmol/L (1.13-1.32) Triglycerides Level 102 mg/dL (0-150) Cholesterol Level 148 mg/dL (0-200) LDL Cholesterol, Calculated 84 mg/dL (0-100) VLDL Cholesterol, Calculated 20 mg/dL (0-40) Non-HDL Cholesterol Calculated 104 mg/dL (0-129) HDL Cholesterol 44 mg/dL (40-60) Cholesterol/HDL Ratio 3.4 Thyroid Stimulating Hormone (TSH) 10.832 uIU/mL (0.358-3.74) Bedside Troponin I 0.09 ng/ml (<0.08) Test 01/23/19 17:00 01/23/19 20:13 01/23/19 20:15 01/23/19 20:18 O2 Saturation 99 % (92-99) 98 % (92-99) Arterial Blood pH 7.33 (7.35-7.45) 7.38 (7.35-7.45) Arterial Blood pCO2 at Patient Temp 39 mmHg (35-46) 30 mmHg (35-46) Arterial Blood pO2 at Patient Temp 441 mmHg (65-108) 136 mmHg (65-108) Arterial Blood HCO3 20 mmol/L (21-28) 17 mmol/L (21-28) Arterial Blood Base Excess -6 mmol/L (-3-3) -6 mmol/L (-3-3) FiO2 100 50 Sodium Level 139 mmol/L (136-145) Potassium Level 4.8 mmol/L (3.5-5.1) Chloride Level 103 mmol/L (98-107) Carbon Dioxide Level 19 mmol/L (21-32) Anion Gap 17 (6-14) Blood Urea Nitrogen 21 mg/dL (8-26) Creatinine 1.1 mg/dL (0.7-1.3) Estimated GFR (Cockcroft-Gault) 67.4 Glucose Level 180 mg/dL (70-99) Lactic Acid Level 3.1 mmol/L (0.4-2.0) Calcium Level 8.2 mg/dL (8.5-10.1) Magnesium Level 1.9 mg/dL (1.8-2.4) Troponin I Quantitative 11.377 ng/mL (0.000-0.055) Arterial Blood pH (Temp corrected) 7.37 Arterial Blood pCO2 (Temp correct) 31 mmHg Arterial Blood pO2 (Temp corrected) 140 mmHg Glucose (Fingerstick) 167 mg/dL (70-99) Test 01/23/19 22:00 01/23/19 23:05 01/24/19 00:00 01/24/19 00:01 Urine Collection Type Unknown Urine Color Yellow Urine Clarity Clear Urine pH 5.0 Urine Specific [place] >=1.030 Urine Protein 100 mg/dL (NEG-TRACE) Urine Glucose (UA) 100 mg/dL (NEG) Urine Ketones (Stick) 15 mg/dL (NEG) Urine Blood Large (NEG) Urine Nitrite Negative (NEG) Urine Bilirubin Negative (NEG) Urine Urobilinogen Dipstick 0.2 mg/dL (0.2 mg/dL) Urine Leukocyte Esterase Negative (NEG) Urine RBC 20-40 /HPF (0-2) Urine WBC Occ /HPF (0-4) Urine Bacteria 0 /HPF (0-FEW) Urine Hyaline Casts Occasional /HPF Urine Mucus Slight /LPF Glucose (Fingerstick) 166 mg/dL (70-99) 212 mg/dL (70-99) 190 mg/dL (70-99) Urine Opiates Screen Neg (NEG) Urine Methadone Screen Neg (NEG) Urine Barbiturates Neg (NEG) Urine Phencyclidine Screen Neg (NEG) Urine Amphetamine/Methamphetamine Neg (NEG) Urine Benzodiazepines Screen Pos (NEG) Urine Cocaine Screen Neg (NEG) Urine Cannabinoids Screen Pos (NEG) Urine Ethyl Alcohol Neg (NEG) White Blood Count 25.5 x10^3/uL (4.0-11.0) Red Blood Count 4.82 x10^6/uL (4.30-5.70) Hemoglobin 15.3 g/dL (13.0-17.5) Hematocrit 44.8 % (39.0-53.0) Mean Corpuscular Volume 93 fL (79-100) Mean Corpuscular Hemoglobin 32 pg (25-35) Mean Corpuscular Hemoglobin Concent 34 g/dL (31-37) Red Cell Distribution Width 13.2 % (11.5-14.5) Platelet Count 160 x10^3/uL (140-400) Neutrophils (%) (Auto) 95 % (31-73) Lymphocytes (%) (Auto) 2 % (24-48) Monocytes (%) (Auto) 3 % (0-9) Eosinophils (%) (Auto) 0 % (0-3) Basophils (%) (Auto) 0 % (0-3) Neutrophils # (Auto) 24.2 x10^3/uL (1.8-7.7) Lymphocytes # (Auto) 0.4 x10^3/uL (1.0-4.8) Monocytes # (Auto) 0.8 x10^3/uL (0.0-1.1) Eosinophils # (Auto) 0.0 x10^3/uL (0.0-0.7) Basophils # (Auto) 0.1 x10^3/uL (0.0-0.2) Prothrombin Time 19.1 SEC (11.7-14.0) Prothromb Time International Ratio 1.6 (0.8-1.1) Activated Partial Thromboplast Time 47 SEC (24-38) Sodium Level 139 mmol/L (136-145) Potassium Level 4.1 mmol/L (3.5-5.1) Chloride Level 106 mmol/L (98-107) Carbon Dioxide Level 20 mmol/L (21-32) Anion Gap 13 (6-14) Blood Urea Nitrogen 19 mg/dL (8-26) Creatinine 1.1 mg/dL (0.7-1.3) Estimated GFR (Cockcroft-Gault) 67.4 Glucose Level 189 mg/dL (70-99) Calcium Level 7.5 mg/dL (8.5-10.1) Phosphorus Level 3.5 mg/dL (2.6-4.7) Magnesium Level 2.2 mg/dL (1.8-2.4) Ionized Calcium 1.02 mmol/L (1.13-1.32) Test 01/24/19 01:05 01/24/19 02:16 01/24/19 03:08 01/24/19 04:09 Glucose (Fingerstick) 86 mg/dL (70-99) 101 mg/dL (70-99) 137 mg/dL (70-99) 127 mg/dL (70-99) Test 01/24/19 05:41 01/24/19 05:45 01/24/19 06:11 01/24/19 08:30 Glucose (Fingerstick) 118 mg/dL (70-99) 110 mg/dL (70-99) White Blood Count 22.6 x10^3/uL (4.0-11.0) Red Blood Count 4.76 x10^6/uL (4.30-5.70) Hemoglobin 15.1 g/dL (13.0-17.5) Hematocrit 44.5 % (39.0-53.0) Mean Corpuscular Volume 93 fL (79-100) Mean Corpuscular Hemoglobin 32 pg (25-35) Mean Corpuscular Hemoglobin Concent 34 g/dL (31-37) Red Cell Distribution Width 13.5 % (11.5-14.5) Platelet Count 138 x10^3/uL (140-400) Neutrophils (%) (Auto) 92 % (31-73) Lymphocytes (%) (Auto) 4 % (24-48) Monocytes (%) (Auto) 4 % (0-9) Eosinophils (%) (Auto) 0 % (0-3) Basophils (%) (Auto) 0 % (0-3) Neutrophils # (Auto) 20.8 x10^3/uL (1.8-7.7) Lymphocytes # (Auto) 0.9 x10^3/uL (1.0-4.8) Monocytes # (Auto) 1.0 x10^3/uL (0.0-1.1) Eosinophils # (Auto) 0.0 x10^3/uL (0.0-0.7) Basophils # (Auto) 0.0 x10^3/uL (0.0-0.2) Prothrombin Time 16.4 SEC (11.7-14.0) Prothromb Time International Ratio 1.4 (0.8-1.1) Activated Partial Thromboplast Time 39 SEC (24-38) Sodium Level 142 mmol/L (136-145) Potassium Level 3.9 mmol/L (3.5-5.1) Chloride Level 110 mmol/L (98-107) Carbon Dioxide Level 22 mmol/L (21-32) Anion Gap 10 (6-14) Blood Urea Nitrogen 16 mg/dL (8-26) Creatinine 0.9 mg/dL (0.7-1.3) Estimated GFR (Cockcroft-Gault) 85.0 Glucose Level 134 mg/dL (70-99) Calcium Level 7.6 mg/dL (8.5-10.1) Ionized Calcium 1.06 mmol/L (1.13-1.32) Phosphorus Level 2.8 mg/dL (2.6-4.7) Magnesium Level 2.1 mg/dL (1.8-2.4) Total Bilirubin 1.8 mg/dL (0.2-1.0) Direct Bilirubin 0.5 mg/dL (0.0-0.2) Aspartate Amino Transf (AST/SGOT) 294 U/L (15-37) Alanine Aminotransferase (ALT/SGPT) 181 U/L (16-63) Alkaline Phosphatase 68 U/L (46-116) Troponin I Quantitative 27.704 ng/mL (0.000-0.055) Total Protein 5.6 g/dL (6.4-8.2) Albumin 2.9 g/dL (3.4-5.0) Procalcitonin 0.40 ng/mL (0.00-0.10) Free Thyroxine 1.25 ng/dL (0.76-1.46) Mycoplasma Serology (LAB) Negative (NEGATIVE) O2 Saturation 96 % (92-99) Arterial Blood pH 7.24 (7.35-7.45) Arterial Blood pH (Temp corrected) 7.27 Arterial Blood pCO2 at Patient Temp 48 mmHg (35-46) Arterial Blood pCO2 (Temp correct) 43 mmHg Arterial Blood pO2 at Patient Temp 94 mmHg (65-108) Arterial Blood pO2 (Temp corrected) 82 mmHg Arterial Blood HCO3 20 mmol/L (21-28) Arterial Blood Base Excess -8 mmol/L (-3-3) FiO2 40 Test 01/24/19 08:36 01/24/19 12:15 01/24/19 13:30 Glucose (Fingerstick) 94 mg/dL (70-99) White Blood Count 20.4 x10^3/uL (4.0-11.0) Red Blood Count 4.75 x10^6/uL (4.30-5.70) Hemoglobin 14.9 g/dL (13.0-17.5) Hematocrit 43.9 % (39.0-53.0) Mean Corpuscular Volume 92 fL (79-100) Mean Corpuscular Hemoglobin 32 pg (25-35) Mean Corpuscular Hemoglobin Concent 34 g/dL (31-37) Red Cell Distribution Width 13.3 % (11.5-14.5) Platelet Count 130 x10^3/uL (140-400) Prothrombin Time 16.0 SEC (11.7-14.0) Prothromb Time International Ratio 1.3 (0.8-1.1) Activated Partial Thromboplast Time 51 SEC (24-38) Sodium Level 141 mmol/L (136-145) Potassium Level 3.8 mmol/L (3.5-5.1) Chloride Level 108 mmol/L (98-107) Carbon Dioxide Level 22 mmol/L (21-32) Anion Gap 11 (6-14) Blood Urea Nitrogen 15 mg/dL (8-26) Creatinine 0.7 mg/dL (0.7-1.3) Estimated GFR (Cockcroft-Gault) 113.5 Glucose Level 119 mg/dL (70-99) Calcium Level 7.6 mg/dL (8.5-10.1) Ionized Calcium 1.04 mmol/L (1.13-1.32) Phosphorus Level 2.1 mg/dL (2.6-4.7) Magnesium Level 2.5 mg/dL (1.8-2.4) O2 Saturation 98 % (92-99) Arterial Blood pH 7.41 (7.35-7.45) Arterial Blood pH (Temp corrected) 7.47 Arterial Blood pCO2 at Patient Temp 29 mmHg (35-46) Arterial Blood pCO2 (Temp correct) 25 mmHg Arterial Blood pO2 at Patient Temp 108 mmHg (65-108) Arterial Blood pO2 (Temp corrected) 88 mmHg Arterial Blood HCO3 18 mmol/L (21-28) Arterial Blood Base Excess -5 mmol/L (-3-3) FiO2 40 Impression . FULL NOTE DICTATED AGREE WITH CURRENT RX WILL INCREASE MINUTE VENTILATION AND REPEAT ABG D/W NEEDS A CHEST TUBE PLACEMENT JOE WHITE MD Jan 24, 2019 13:59
--- NOTE | 2019-01-24 14:02 | PDOC2 ---
NEUROLOGY CONSULT Date of Admission Date of Admission DATE: 01/24/19 TIME: 13:39 Reason for Consult Reason for Consult: IMPRESSION: Anoxia/hypoxia/metabolic encephalopathy. S/P cardiac arrest, downtime estimated on and off for 33 minutes. CAD with LCX occlusion, s/p stents placement. Respiratory failure. Hypokalemia, K+ 2.8 CHF, EF 30-35%. Lactic acidosis. Leukocytosis. Pulmonary infiltrate. Hepatic injury. Renal failure. Hematuria. Rib and sternum fracture. RECOMMENDATIONS/PLAN: Life support in ICU. HCT performed w/o ICH or SAH. Received hypothermia. EEG after warming up. Treat medical and cardiac diseases. HISTORY OF THE PRESENT ILLNESS: This is a 63-year-old male who was brought into [facility] ER [facility] via EMS because of cardiorespiratory arrest. Per ER the patient's stated that he had a syncopal episode at work on 01/23/19 and he was brought to home by his coworker. He then had vomiting around 14:29 pm with agonal respiration so his called 911. EMS arrived at the scene at 14:35 pm and the patient was found to have VF. CPR was carried out and patient received shocks and was intubated. On arrival to ER about 15:08 pm, patient had a spontaneous pulse and auto-chest compression was stopped. HCT ruled out intracranial hemorrhage, hypothermia was administrated in ICU. Patient's states he had left inguinal hernia surgery 2 weeks ago and has history of asthma without other medical problem. Patient did not have any complaining of chest pain or shortness of breath that day. PAST MEDICAL HISTORY Cardiovascular: HTN? Pulmonary: Asthma. Smoking. CENTRAL NERVOUS SYSTEM: No pertinent history. GI: Other (inguinal hernia) Heme/Onc: No pertinent hx Hepatobiliary: No pertinent hx Psych: No pertinent hx Musculoskeletal: Osteoarthritis Rheumatologic: No pertinent hx Infectious disease: No pertinent hx ENT: No pertinent hx Renal/: No pertinent hx Endocrine: No pertinent hx Dermatology: No pertinent hx PAST SURGICAL HISTORY Hernia Repair (left inguinal) FAMILY HISTORY Coronary Artery Disease (father) SOCIAL HISTORY Smoke: <1 pack per day ALCOHOL: none Drugs: None Lives: with Family ALLERGIES No Known Drug Allergies (Unverified , 01/23/19) MEDICATIONS: Refer to [facility] REVIEW OF SYSTEMS: Constitutional: No malnutrition, weight loss, cachexia. Head: No recent traumatic brain or head injury. Skin: No edema, or rash. Ear: No infection, tinnitus. Eyes: No vision loss or color blindness. Nose: No bleeding or purulent discharges. Hearing: No hearing decrease. Neck: No injury. Cardiac: No VA, arrhythmia,claudication. Pulmonary: Smoking.. GI: No GI ulcer, GI bleeding. Urinary/genital: No dysuria, incontinence, urinary retention. Endocrinologic: No cousin face, craniofacial dysmorphism, polydactyly. Skeletomuscular: No muscular atrophy, deformity. Neurological: see HP. Psychiatric: Denies drug use/abuse. Otherwise, not [id number] review of systems. PHYSICAL EXAMINATION: General appearance is in acute distress. HEENT: Normocephalic and nontraumatic. Eyes, nose, ears, and throat are unremarkable. Neck is supple. No lymphadenopathy. No crepitus. Cardiovascular: S1, S2. Pulmonary: On vent. Abdomen: Bowel sounds are positive. Extremities: No rash, lesions, or edema. NEUROLOGICAL EXAMINATION: On vent. Unresponsive. Not oriented to time, place and person. Pupils 1-2 mm, insensitive to light stimuli. EOMI not elicited. CN: no focal findings. Muscle tone: Decreased. Muscle strength: no movements to stimuli. DTR: 1 Plantar reflex: No response bilaterally Gait: not able to walk. Sensory exam: no response to pain stimuli. Not able to access cerebellar signs. F-T-N test not performed in unresponsive state. Current Medications Current Medications Current Medications Sodium Chloride 1,000 ml @ 1,000 mls/hr Q1H IV Last administered on 01/23/19at 17:23; Start 01/23/19 at 15:13; Stop 01/23/19 at 16:12; Status DC Sodium Bicarbonate (Sodium Bicarb Adult 8.4% Syr) 100 meq 1X ONCE IV Last administered on 01/23/19at 17:23; Start 01/23/19 at 15:30; Stop 01/23/19 at 15:59; Status DC Midazolam HCl (Versed) 5 mg STK-MED ONCE .ROUTE ; Start 01/23/19 at 15:25; Stop 01/23/19 at 15:25; Status DC Propofol 50 ml @ As Directed STK-MED ONCE IV ; Start 01/23/19 at 15:25; Stop 01/23/19 at 15:25; Status DC Calcium Gluconate (Calcium Gluconate) 1,000 mg 1X ONCE IVP Last administered on 01/23/19at 16:12; Start 01/23/19 at 16:00; Stop 01/23/19 at 16:01; Status DC Dextrose (Dextrose 50%-Water Syringe) 25 gm 1X ONCE IV ; Start 01/23/19 at 15:45; Stop 01/23/19 at 15:53; Status DC Insulin Human Regular (HumuLIN R VIAL) 10 unit 1X ONCE IV ; Start 01/23/19 at 15:45; Stop 01/23/19 at 15:53; Status DC Iohexol (Omnipaque 350 Mg/ml) 90 ml 1X ONCE IV Last administered on 01/23/19at 16:08; Start 01/23/19 at 15:45; Stop 01/23/19 at 16:00; Status DC Amiodarone HCl 900 mg/Dextrose 518 ml @ 0 mls/hr CONT PRN IV SEE I/O RECORD Last administered on 01/23/19at 17:06; Start 01/23/19 at 16:00; Stop 01/23/19 at 17:06; Status DC Piperacillin Sod/ Tazobactam Sod 3.375 gm/Sodium Chloride 50 ml @ 100 mls/hr 1X ONCE IV Last administered on 01/23/19at 22:19; Start 01/23/19 at 16:00; Stop 01/23/19 at 16:29; Status DC Vancomycin HCl 250 ml @ 250 mls/hr 1X ONCE IV ; Start 01/23/19 at 16:00; Stop 01/23/19 at 16:24; Status DC Fentanyl Citrate (Fentanyl 2ml Vial) 100 mcg 1X ONCE IV ; Start 01/23/19 at 16:15; Stop 01/23/19 at 16:24; Status DC Midazolam HCl (Versed) 2 mg 1X ONCE IV ; Start 01/23/19 at 16:15; Stop 01/23/19 at 16:24; Status DC Magnesium Sulfate/ Dextrose 100 ml @ 100 mls/hr 1X ONCE IV ; Start 01/23/19 at 16:15; Stop 01/23/19 at 17:14; Status DC Buspirone HCl (Buspar) 30 mg Q8H NG Last administered on 01/24/19at 08:29; Start 01/23/19 at 17:00; Stop 01/25/19 at 09:01 Acetaminophen (Tylenol) 650 mg Q4H NG Last administered on 01/24/19at 12:55; Start 01/23/19 at 16:15 Artificial Tears (Artificial Tears) 1 drop Q6HRS OU Last administered on 01/24/19at 12:55; Start 01/23/19 at 18:00 Artificial Tears (Artificial Tears) 1 drop PRN Q15MIN PRN OU DRY EYE; Start 01/23/19 at 16:15 Heparin Sodium (Porcine) (Heparin Sodium) 5,000 unit BID SQ ; Start 01/23/19 at 21:00; Stop 01/23/19 at 16:53; Status DC Pantoprazole Sodium (PROTONIX VIAL for IV PUSH) 40 mg DAILY IVP ; Start 01/24/19 at 09:00; Stop 01/23/19 at 20:27; Status DC Fentanyl Citrate 30 ml @ 0 mls/hr CONT PRN IV PER PROTOCOL.; Start 01/23/19 at 16:15; Stop 01/23/19 at 18:01; Status DC Propofol 100 ml @ 0 mls/hr CONT PRN IV PER PROTOCOL.; Start 01/23/19 at 16:15; Stop 01/23/19 at 20:27; Status DC Midazolam HCl 100 ml @ 0 mls/hr CONT PRN IV PER PROTOCOL. Last administered on 01/23/19at 16:50; Start 01/23/19 at 16:15; Stop 01/23/19 at 20:26; Status DC Vecuronium [place] (Norcuron Bolus) 7 mg PRN Q1HR PRN IV SHIVERING; Start 01/23/19 at 16:15; Stop 01/23/19 at 20:28; Status DC Pantoprazole Sodium (PROTONIX VIAL for IV PUSH) 40 mg DAILYAC IVP ; Start 01/24/19 at 07:30; Stop 01/23/19 at 16:25; Status DC Pantoprazole Sodium (PROTONIX VIAL for IV PUSH) 40 mg 1X ONCE IVP Last administered on 01/23/19at 23:43; Start 01/23/19 at 17:00; Stop 01/23/19 at 17:01; Status DC Enoxaparin Sodium (Lovenox 40mg Syringe) 40 mg Q24H SQ ; Start 01/23/19 at 21:00; Stop 01/23/19 at 23:59; Status DC Sodium Chloride 1,000 ml @ 150 mls/hr Q6H40M IV Last administered on 01/24/19at 04:43; Start 01/23/19 at 16:11; Stop 01/24/19 at 11:40; Status DC Potassium Chloride/Water 100 ml @ 100 mls/hr Q1H IV Last administered on 01/23/19at 19:06; Start 01/23/19 at 17:00; Stop 01/23/19 at 20:59; Status DC Potassium Chloride/Water 100 ml @ 100 mls/hr Q1H IV ; Start 01/23/19 at 22:00; Stop 01/23/19 at 23:59; Status DC Vancomycin HCl 1.75 gm/Sodium Chloride 500 ml @ 250 mls/hr 1X ONCE IV Last administered on 01/23/19at 23:42; Start 01/23/19 at 18:00; Stop 01/23/19 at 19:59; Status DC Aspirin (Aspirin Rectal Supp) 300 mg 1X ONCE SC Last administered on 01/23/19at 20:27; Start 01/23/19 at 17:00; Stop 01/23/19 at 17:01; Status DC Lidocaine HCl (Lidocaine 1% 20ml Vial) 20 ml STK-MED ONCE .ROUTE ; Start 01/23/19 at 16:37; Stop 01/23/19 at 16:37; Status DC Heparin Sodium/ Sodium Chloride 1,000 ml @ As Directed STK-MED ONCE .ROUTE ; Start 01/23/19 at 16:37; Stop 01/23/19 at 16:38; Status DC Heparin Sodium/ Dextrose 500 ml @ 0 mls/hr CONT PRN IV SEE I/O RECORD; Start 01/23/19 at 17:00; Stop 01/23/19 at 23:27; Status DC Midazolam HCl (Versed) 5 mg STK-MED ONCE .ROUTE ; Start 01/23/19 at 17:00; Stop 01/23/19 at 17:00; Status DC Sodium Chloride 1,000 ml @ 1,000 mls/hr 1X ONCE IV Last administered on 01/23/19at 18:58; Start 01/23/19 at 17:30; Stop 01/23/19 at 18:29; Status DC Propofol 50 ml @ 2.1 mls/hr 1X STAT IV Last administered on 01/23/19at 18:51; Start 01/23/19 at 17:17; Stop 01/23/19 at 20:27; Status DC Midazolam HCl (Versed) 5 mg 1X ONCE IV Last administered on 01/23/19at 18:18; Start 01/23/19 at 17:30; Stop 01/23/19 at 17:31; Status DC Fentanyl Citrate 30 ml @ 0 mls/hr CONT PRN PRN IV PER PROTOCOL; Start 01/23/19 at 17:45; Status Cancel Naloxone HCl (Narcan) 0.4 mg PRN Q2MIN PRN IV SEE INSTRUCTIONS; Start 01/23/19 at 17:45 Sodium Chloride 1,000 ml @ 25 mls/hr Q24H IV Last administered on 01/23/19at 22:20; Start 01/23/19 at 17:33 Midazolam HCl (Versed) 5 mg 1X ONCE IV Last administered on 01/23/19at 19:02; Start 01/23/19 at 18:15; Stop 01/23/19 at 18:16; Status DC Amiodarone HCl (Cordarone) 150 mg STK-MED ONCE .ROUTE ; Start 01/23/19 at 18:11; Stop 01/23/19 at 18:12; Status DC Iodixanol (Visipaque 320) 100 ml STK-MED ONCE .ROUTE ; Start 01/23/19 at 18:19; Stop 01/23/19 at 18:19; Status DC Bivalirudin (Angiomax) 250 mg STK-MED ONCE IV ; Start 01/23/19 at 18:20; Stop 01/23/19 at 18:20; Status DC Nitroglycerin (Nitroglycerin) 200 mcg 1X ONCE IART Last administered on 01/23/19at 19:10; Start 01/23/19 at 18:45; Stop 01/23/19 at 18:56; Status DC Heparin Sodium/ Sodium Chloride (HEPARIN for ARTERIAL LINE FLUSH) 1,000 unit 1X ONCE IART Last administered on 01/23/19at 19:10; Start 01/23/19 at 18:45; Stop 01/23/19 at 18:56; Status DC Heparin Sodium/ Sodium Chloride (HEPARIN for ARTERIAL LINE FLUSH) 1,000 unit 1X ONCE IART Last administered on 01/23/19 19:10; Start 01/23/19 at 18:45; Stop 01/23/19 at 18:56; Status DC Iodixanol (Visipaque 320) 100 ml 1X ONCE IART Last administered on 01/23/19 19:10; Start 01/23/19 at 18:45; Stop 01/23/19 at 18:56; Status DC Bivalirudin (Angiomax) 250 mg 1X ONCE IV Last administered on 01/23/19 19:10; Start 01/23/19 at 18:45; Stop 01/23/19 at 18:56; Status DC Lidocaine HCl (Lidocaine 1% 20ml Vial) 10 ml 1X ONCE INJ Last administered on 01/23/19 19:10; Start 01/23/19 at 18:45; Stop 01/23/19 at 18:56; Status DC Amiodarone HCl 150 mg/Dextrose 103 ml @ 0 mls/hr 1X ONCE IV Last administered on 01/23/19 19:10; Start 01/23/19 at 19:00; Stop 01/23/19 at 19:01; Status DC Info (CONTRAST GIVEN -- Rx MONITORING) 1 each PRN DAILY PRN MC SEE COMMENTS; Start 01/23/19 at 19:00; Stop 01/25/19 at 18:59 Heparin Sodium/ Sodium Chloride 500 ml @ As Directed STK-MED ONCE .ROUTE ; Start 01/23/19 at 19:02; Stop 01/23/19 at 19:03; Status DC Sodium Chloride (Normal Saline Flush) 3 ml QSHIFT PRN IV AFTER MEDS AND BLOOD DRAWS; Start 01/23/19 at 19:30 Sodium Chloride 1,000 ml @ 75 mls/hr [id number] IV Last administered on 01/23/19at 20:27; Start 01/23/19 at 19:17; Stop 01/24/19 at 03:16; Status DC Aspirin (Ecotrin) 325 mg DAILYWBKFT PO Last administered on 01/24/19at 08:29; Start 01/24/19 at 08:00 Clopidogrel Bisulfate (Plavix) 75 mg DAILYWBKFT PO Last administered on 01/24/19at 09:16; Start 01/24/19 at 08:00 Acetaminophen (Tylenol) 650 mg PRN Q6HRS PRN PO MILD PAIN / TEMP; Start 01/23/19 at 19:30 Fentanyl Citrate (Fentanyl 2ml Vial) 50 mcg PRN Q1HR PRN IV MODERATE OR SEVERE PAIN; Start 01/23/19 at 19:30 Nitroglycerin (Nitrostat) 0.4 mg PRN Q5MIN PRN SL CHEST PAIN; Start 01/23/19 at 19:30 Amiodarone HCl 150 mg/Dextrose 103 ml @ 600 mls/hr 1X PRN PRN IV FOR VENTRICULAR TACHYCARDIA; Start 01/23/19 at 19:30 Lidocaine HCl (Lidocaine HCl 2% Abboject) 100 mg 1X PRN PRN IV FOR VENTRICULAR TACHYCARDIA; Start 01/23/19 at 19:30 Atropine Sulfate (ATROPINE 0.5mg SYRINGE) 0.5 mg PRN 1X PRN IV BRADYCARDIA; Start 01/23/19 at 19:30 Fentanyl Citrate (Fentanyl 2ml Vial) 100 mcg 1X ONCE IV Last administered on 01/23/19at 20:27; Start 01/23/19 at 19:45; Stop 01/23/19 at 20:25; Status DC Midazolam HCl (Versed) 2 mg 1X ONCE IV ; Start 01/23/19 at 19:45; Stop 01/23/19 at 20:25; Status DC Magnesium Sulfate/ Dextrose 100 ml @ 100 mls/hr 1X ONCE IV Last administered on 01/23/19at 20:46; Start 01/23/19 at 19:45; Stop 01/23/19 at 20:44; Status DC Heparin Sodium (Porcine) (Heparin Sodium) 5,000 unit BID SQ Last administered on 01/24/19at 08:29; Start 01/23/19 at 21:00 Pantoprazole Sodium (PROTONIX VIAL for IV PUSH) 40 mg DAILY IVP Last administered on 01/24/19at 08:29; Start 01/24/19 at 09:00 Fentanyl Citrate 30 ml @ 0 mls/hr CONT PRN IV PER PROTOCOL. Last administered on 01/24/19at 09:46; Start 01/23/19 at 19:45 Propofol 100 ml @ 0 mls/hr CONT PRN IV PER PROTOCOL.; Start 01/23/19 at 19:45 Midazolam HCl 100 ml @ 0 mls/hr CONT PRN IV PER PROTOCOL. Last administered on 01/23/19at 22:19; Start 01/23/19 at 19:45 Vecuronium [place] (Norcuron Bolus) 7 mg PRN Q1HR PRN IV SHIVERING Last administered on 01/24/19at 09:54; Start 01/23/19 at 19:45 Norepinephrine Bitartrate 250 ml @ 13.608 mls/ hr CONT PRN IV SEE I/O RECORD; Start 01/23/19 at 20:45 Sodium Chloride 500 ml @ 500 mls/hr 1X ONCE IV Last administered on 01/23/19at 20:57; Start 01/23/19 at 20:45; Stop 01/23/19 at 21:44; Status DC Daptomycin 440 mg/ Sodium Chloride 50 ml @ 100 mls/hr Q24H IV Last administered on 01/24/19at 00:12; Start 01/23/19 at 23:00 Linezolid/Dextrose 300 ml @ 300 mls/hr Q12HR IV Last administered on 01/24/19at 08:29; Start 01/24/19 at 09:00 Doxycycline Hyclate 100 mg/ Dextrose 100 ml @ 50 mls/hr Q12HR IV Last administered on 01/24/19at 08:29; Start 01/24/19 at 09:00 Doxycycline Hyclate 100 mg/ Dextrose 100 ml @ 50 mls/hr 1X ONCE IV Last administered on 01/23/19at 23:42; Start 01/23/19 at 23:30; Stop 01/24/19 at 01:29; Status DC Linezolid/Dextrose 300 ml @ 300 mls/hr ONCE ONCE IV Last administered on 01/23/19at 23:42; Start 01/23/19 at 23:00; Stop 01/23/19 at 23:59; Status DC Insulin Human Regular 150 unit/ Sodium Chloride 151.5 ml @ 0 mls/hr CONT PRN IV SEE I/O RECORD; Start 01/23/19 at 23:15 Magnesium Sulfate 50 ml @ 25 mls/hr 1X ONCE IV Last administered on 01/24/19at 08:29; Start 01/24/19 at 06:45; Stop 01/24/19 at 08:44; Status DC Piperacillin Sod/ Tazobactam Sod 3.375 gm/Sodium Chloride 50 ml @ 100 mls/hr Q6HRS IV Last administered on 01/24/19at 12:55; Start 01/24/19 at 08:00 Atorvastatin Calcium (Lipitor) 20 mg QHS PO ; Start 01/24/19 at 21:00 Sodium Chloride 1,000 ml @ 100 mls/hr Q10H IV ; Start 01/24/19 at 11:45 Amiodarone HCl 900 mg/Dextrose 518 ml @ 17 mls/hr 30H29M IV ; Start 01/24/19 at 15:00 Magnesium Sulfate/ Dextrose 100 ml @ 100 mls/hr 1X ONCE IV ; Start 01/24/19 at 13:30; Stop 01/24/19 at 14:29 Allergies Allergies: Allergies Coded Allergies Type Severity Reaction Last Updated Verified No Known Drug Allergies 01/23/19 No ROS Review of System The patient denies any associated fevers, chills, headache, ear pain, rhinorrhea, sore throat, stiff neck, productive cough, chest pain, shortness of breath, back or flank pain, abdominal pain, nausea, vomiting, diarrhea, constipation, dysuria, rash, numbness, weakness, tingling, incontinence, difficulty ambulating, or diaphoresis. Physical Exam Physical Exam General: Well developed, well nourished, no acute distress, well appearing HEENT: Pupils equally round and reactive to light, EOMI, no discharge, normal conjunctiva Neck: Supple, no nuchal rigidity, no JVD, trachea midline, no tenderness Cardiac: RRR, no murmurs, no gallops, no rubs Chest/Lungs: CTAB, no wheeze, no rhonchi, no crackles Abdomen: soft, non-distended, no guarding, no peritoneal signs, non-tender Back: No tenderness Extremities: no edema, pulses intact, non-tender,capillary refill <3 sec bilateral upper and lower extremities, Neuro: Alert and oriented x 4, no focal deficits, normal speech Vitals Vitals: Vital Signs Date Time Temp Pulse Resp B/P (MAP) Pulse Ox O2 Delivery O2 Flow Rate FiO2 01/24/19 13:00 92.2 52 24 97/74 100 Ventilator 01/24/19 04:36 15.0 Labs Labs Laboratory Tests Test 01/23/19 15:15 01/23/19 15:20 01/23/19 15:25 8/27/19 15:26 O2 Saturation 97 % (92-99) Arterial Blood pH 7.04 (7.35-7.45) Arterial Blood pCO2 at Patient Temp 42 mmHg (35-46) Arterial Blood pO2 at Patient Temp 125 mmHg (65-108) Arterial Blood HCO3 11 mmol/L (21-28) Arterial Blood Base Excess -19 mmol/L (-3-3) FiO2 100 White Blood Count 19.5 x10^3/uL (4.0-11.0) Red Blood Count 5.25 x10^6/uL (4.30-5.70) Hemoglobin 16.7 g/dL (13.0-17.5) Hematocrit 49.9 % (39.0-53.0) Mean Corpuscular Volume 95 fL (79-100) Mean Corpuscular Hemoglobin 32 pg (25-35) Mean Corpuscular Hemoglobin Concent 33 g/dL (31-37) Red Cell Distribution Width 13.7 % (11.5-14.5) Platelet Count 164 x10^3/uL (140-400) Neutrophils (%) (Auto) 81 % (31-73) Lymphocytes (%) (Auto) 15 % (24-48) Monocytes (%) (Auto) 3 % (0-9) Eosinophils (%) (Auto) 0 % (0-3) Basophils (%) (Auto) 0 % (0-3) Neutrophils # (Auto) 15.8 x10^3/uL (1.8-7.7) Lymphocytes # (Auto) 2.9 x10^3/uL (1.0-4.8) Monocytes # (Auto) 0.6 x10^3/uL (0.0-1.1) Eosinophils # (Auto) 0.1 x10^3/uL (0.0-0.7) Basophils # (Auto) 0.1 x10^3/uL (0.0-0.2) Segmented Neutrophils % 65 % (35-66) Band Neutrophils % 11 % (0-9) Lymphocytes % 17 % (24-48) Monocytes % 5 % (0-10) Basophils % 1 % (0-3) Metamyelocytes % 1 % (0-0) Platelet Estimate Adequate (ADEQUATE) Prothrombin Time 15.3 SEC (11.7-14.0) Prothromb Time International Ratio 1.2 (0.8-1.1) D-Dimer (Keisha) 12.31 ug/mlFEU (0.00-0.50) Sodium Level 139 mmol/L (136-145) Potassium Level 2.8 mmol/L (3.5-5.1) Chloride Level 100 mmol/L (98-107) Carbon Dioxide Level 20 mmol/L (21-32) Anion Gap 19 (6-14) 17 mmol/L (6-14) Blood Urea Nitrogen 20 mg/dL (8-26) Creatinine 1.8 mg/dL (0.7-1.3) Estimated GFR (Cockcroft-Gault) 38.2 BUN/Creatinine Ratio 11 (6-20) Glucose Level 265 mg/dL (70-99) 264 mg/dL (70-99) Calcium Level 8.6 mg/dL (8.5-10.1) Magnesium Level 2.7 mg/dL (1.8-2.4) Total Bilirubin 0.8 mg/dL (0.2-1.0) Aspartate Amino Transf (AST/SGOT) 159 U/L (15-37) Alanine Aminotransferase (ALT/SGPT) 190 U/L (16-63) Alkaline Phosphatase 109 U/L (46-116) Creatine Kinase 213 U/L (39-308) Troponin I Quantitative 0.228 ng/mL (0.000-0.055) DC-Jii-D-Type Natriuretic Peptide 306 pg/mL (0-124) Total Protein 6.9 g/dL (6.4-8.2) Albumin 3.5 g/dL (3.4-5.0) Albumin/Globulin Ratio 1.0 (1.0-1.7) Lipase 115 U/L (73-393) Bedside Hemoglobin 17.3 g/dL (14-18) Bedside Hematocrit 51 % (37-52) Bedside Sodium 133 mmol/L (135-145) Bedside Potassium 6.5 mmol/L (3.5-5.0) Bedside Chloride 101 mmol/L (98-110) Bedside Total CO2 23 mmol/L (23-32) Bedside Blood Urea Nitrogen 31 mg/dL (8-26) Bedside Creatinine 1.6 mg/dL (0.5-1.4) Lactic Acid Level 9.5 mmol/L (0.4-2.0) Bedside Ionized Calcium (Clover) 0.99 mmol/L (1.13-1.32) Triglycerides Level 102 mg/dL (0-150) Cholesterol Level 148 mg/dL (0-200) LDL Cholesterol, Calculated 84 mg/dL (0-100) VLDL Cholesterol, Calculated 20 mg/dL (0-40) Non-HDL Cholesterol Calculated 104 mg/dL (0-129) HDL Cholesterol 44 mg/dL (40-60) Cholesterol/HDL Ratio 3.4 Thyroid Stimulating Hormone (TSH) 10.832 uIU/mL (0.358-3.74) Bedside Troponin I 0.09 ng/ml (<0.08) Test 01/23/19 17:00 01/23/19 20:13 01/23/19 20:15 01/23/19 20:18 O2 Saturation 99 % (92-99) 98 % (92-99) Arterial Blood pH 7.33 (7.35-7.45) 7.38 (7.35-7.45) Arterial Blood pCO2 at Patient Temp 39 mmHg (35-46) 30 mmHg (35-46) Arterial Blood pO2 at Patient Temp 441 mmHg (65-108) 136 mmHg (65-108) Arterial Blood HCO3 20 mmol/L (21-28) 17 mmol/L (21-28) Arterial Blood Base Excess -6 mmol/L (-3-3) -6 mmol/L (-3-3) FiO2 100 50 Sodium Level 139 mmol/L (136-145) Potassium Level 4.8 mmol/L (3.5-5.1) Chloride Level 103 mmol/L (98-107) Carbon Dioxide Level 19 mmol/L (21-32) Anion Gap 17 (6-14) Blood Urea Nitrogen 21 mg/dL (8-26) Creatinine 1.1 mg/dL (0.7-1.3) Estimated GFR (Cockcroft-Gault) 67.4 Glucose Level 180 mg/dL (70-99) Lactic Acid Level 3.1 mmol/L (0.4-2.0) Calcium Level 8.2 mg/dL (8.5-10.1) Magnesium Level 1.9 mg/dL (1.8-2.4) Troponin I Quantitative 11.377 ng/mL (0.000-0.055) Arterial Blood pH (Temp corrected) 7.37 Arterial Blood pCO2 (Temp correct) 31 mmHg Arterial Blood pO2 (Temp corrected) 140 mmHg Glucose (Fingerstick) 167 mg/dL (70-99) Test 01/23/19 22:00 01/23/19 23:05 01/24/19 00:00 01/24/19 00:01 Urine Collection Type Unknown Urine Color Yellow Urine Clarity Clear Urine pH 5.0 Urine Specific [place] >=1.030 Urine Protein 100 mg/dL (NEG-TRACE) Urine Glucose (UA) 100 mg/dL (NEG) Urine Ketones (Stick) 15 mg/dL (NEG) Urine Blood Large (NEG) Urine Nitrite Negative (NEG) Urine Bilirubin Negative (NEG) Urine Urobilinogen Dipstick 0.2 mg/dL (0.2 mg/dL) Urine Leukocyte Esterase Negative (NEG) Urine RBC 20-40 /HPF (0-2) Urine WBC Occ /HPF (0-4) Urine Bacteria 0 /HPF (0-FEW) Urine Hyaline Casts Occasional /HPF Urine Mucus Slight /LPF Glucose (Fingerstick) 166 mg/dL (70-99) 212 mg/dL (70-99) 190 mg/dL (70-99) Urine Opiates Screen Neg (NEG) Urine Methadone Screen Neg (NEG) Urine Barbiturates Neg (NEG) Urine Phencyclidine Screen Neg (NEG) Urine Amphetamine/Methamphetamine Neg (NEG) Urine Benzodiazepines Screen Pos (NEG) Urine Cocaine Screen Neg (NEG) Urine Cannabinoids Screen Pos (NEG) Urine Ethyl Alcohol Neg (NEG) White Blood Count 25.5 x10^3/uL (4.0-11.0) Red Blood Count 4.82 x10^6/uL (4.30-5.70) Hemoglobin 15.3 g/dL (13.0-17.5) Hematocrit 44.8 % (39.0-53.0) Mean Corpuscular Volume 93 fL (79-100) Mean Corpuscular Hemoglobin 32 pg (25-35) Mean Corpuscular Hemoglobin Concent 34 g/dL (31-37) Red Cell Distribution Width 13.2 % (11.5-14.5) Platelet Count 160 x10^3/uL (140-400) Neutrophils (%) (Auto) 95 % (31-73) Lymphocytes (%) (Auto) 2 % (24-48) Monocytes (%) (Auto) 3 % (0-9) Eosinophils (%) (Auto) 0 % (0-3) Basophils (%) (Auto) 0 % (0-3) Neutrophils # (Auto) 24.2 x10^3/uL (1.8-7.7) Lymphocytes # (Auto) 0.4 x10^3/uL (1.0-4.8) Monocytes # (Auto) 0.8 x10^3/uL (0.0-1.1) Eosinophils # (Auto) 0.0 x10^3/uL (0.0-0.7) Basophils # (Auto) 0.1 x10^3/uL (0.0-0.2) Prothrombin Time 19.1 SEC (11.7-14.0) Prothromb Time International Ratio 1.6 (0.8-1.1) Activated Partial Thromboplast Time 47 SEC (24-38) Sodium Level 139 mmol/L (136-145) Potassium Level 4.1 mmol/L (3.5-5.1) Chloride Level 106 mmol/L (98-107) Carbon Dioxide Level 20 mmol/L (21-32) Anion Gap 13 (6-14) Blood Urea Nitrogen 19 mg/dL (8-26) Creatinine 1.1 mg/dL (0.7-1.3) Estimated GFR (Cockcroft-Gault) 67.4 Glucose Level 189 mg/dL (70-99) Calcium Level 7.5 mg/dL (8.5-10.1) Phosphorus Level 3.5 mg/dL (2.6-4.7) Magnesium Level 2.2 mg/dL (1.8-2.4) Ionized Calcium 1.02 mmol/L (1.13-1.32) Test 01/24/19 01:05 01/24/19 02:16 01/24/19 03:08 01/24/19 04:09 Glucose (Fingerstick) 86 mg/dL (70-99) 101 mg/dL (70-99) 137 mg/dL (70-99) 127 mg/dL (70-99) Test 01/24/19 05:41 01/24/19 05:45 01/24/19 06:11 01/24/19 08:30 Glucose (Fingerstick) 118 mg/dL (70-99) 110 mg/dL (70-99) White Blood Count 22.6 x10^3/uL (4.0-11.0) Red Blood Count 4.76 x10^6/uL (4.30-5.70) Hemoglobin 15.1 g/dL (13.0-17.5) Hematocrit 44.5 % (39.0-53.0) Mean Corpuscular Volume 93 fL (79-100) Mean Corpuscular Hemoglobin 32 pg (25-35) Mean Corpuscular Hemoglobin Concent 34 g/dL (31-37) Red Cell Distribution Width 13.5 % (11.5-14.5) Platelet Count 138 x10^3/uL (140-400) Neutrophils (%) (Auto) 92 % (31-73) Lymphocytes (%) (Auto) 4 % (24-48) Monocytes (%) (Auto) 4 % (0-9) Eosinophils (%) (Auto) 0 % (0-3) Basophils (%) (Auto) 0 % (0-3) Neutrophils # (Auto) 20.8 x10^3/uL (1.8-7.7) Lymphocytes # (Auto) 0.9 x10^3/uL (1.0-4.8) Monocytes # (Auto) 1.0 x10^3/uL (0.0-1.1) Eosinophils # (Auto) 0.0 x10^3/uL (0.0-0.7) Basophils # (Auto) 0.0 x10^3/uL (0.0-0.2) Prothrombin Time 16.4 SEC (11.7-14.0) Prothromb Time International Ratio 1.4 (0.8-1.1) Activated Partial Thromboplast Time 39 SEC (24-38) Sodium Level 142 mmol/L (136-145) Potassium Level 3.9 mmol/L (3.5-5.1) Chloride Level 110 mmol/L (98-107) Carbon Dioxide Level 22 mmol/L (21-32) Anion Gap 10 (6-14) Blood Urea Nitrogen 16 mg/dL (8-26) Creatinine 0.9 mg/dL (0.7-1.3) Estimated GFR (Cockcroft-Gault) 85.0 Glucose Level 134 mg/dL (70-99) Calcium Level 7.6 mg/dL (8.5-10.1) Ionized Calcium 1.06 mmol/L (1.13-1.32) Phosphorus Level 2.8 mg/dL (2.6-4.7) Magnesium Level 2.1 mg/dL (1.8-2.4) Total Bilirubin 1.8 mg/dL (0.2-1.0) Direct Bilirubin 0.5 mg/dL (0.0-0.2) Aspartate Amino Transf (AST/SGOT) 294 U/L (15-37) Alanine Aminotransferase (ALT/SGPT) 181 U/L (16-63) Alkaline Phosphatase 68 U/L (46-116) Troponin I Quantitative 27.704 ng/mL (0.000-0.055) Total Protein 5.6 g/dL (6.4-8.2) Albumin 2.9 g/dL (3.4-5.0) Procalcitonin 0.40 ng/mL (0.00-0.10) Free Thyroxine 1.25 ng/dL (0.76-1.46) Mycoplasma Serology (LAB) Negative (NEGATIVE) O2 Saturation 96 % (92-99) Arterial Blood pH 7.24 (7.35-7.45) Arterial Blood pH (Temp corrected) 7.27 Arterial Blood pCO2 at Patient Temp 48 mmHg (35-46) Arterial Blood pCO2 (Temp correct) 43 mmHg Arterial Blood pO2 at Patient Temp 94 mmHg (65-108) Arterial Blood pO2 (Temp corrected) 82 mmHg Arterial Blood HCO3 20 mmol/L (21-28) Arterial Blood Base Excess -8 mmol/L (-3-3) FiO2 40 Test 01/24/19 08:36 01/24/19 12:15 Glucose (Fingerstick) 94 mg/dL (70-99) White Blood Count 20.4 x10^3/uL (4.0-11.0) Red Blood Count 4.75 x10^6/uL (4.30-5.70) Hemoglobin 14.9 g/dL (13.0-17.5) Hematocrit 43.9 % (39.0-53.0) Mean Corpuscular Volume 92 fL (79-100) Mean Corpuscular Hemoglobin 32 pg (25-35) Mean Corpuscular Hemoglobin Concent 34 g/dL (31-37) Red Cell Distribution Width 13.3 % (11.5-14.5) Platelet Count 130 x10^3/uL (140-400) Prothrombin Time 16.0 SEC (11.7-14.0) Prothromb Time International Ratio 1.3 (0.8-1.1) Activated Partial Thromboplast Time 51 SEC (24-38) Sodium Level 141 mmol/L (136-145) Potassium Level 3.8 mmol/L (3.5-5.1) Chloride Level 108 mmol/L (98-107) Carbon Dioxide Level 22 mmol/L (21-32) Anion Gap 11 (6-14) Blood Urea Nitrogen 15 mg/dL (8-26) Creatinine 0.7 mg/dL (0.7-1.3) Estimated GFR (Cockcroft-Gault) 113.5 Glucose Level 119 mg/dL (70-99) Calcium Level 7.6 mg/dL (8.5-10.1) Ionized Calcium 1.04 mmol/L (1.13-1.32) Phosphorus Level 2.1 mg/dL (2.6-4.7) Magnesium Level 2.5 mg/dL (1.8-2.4) Laboratory Tests Test 01/23/19 15:15 01/23/19 15:20 01/23/19 15:25 01/23/19 15:26 O2 Saturation 97 % (92-99) Arterial Blood pH 7.04 (7.35-7.45) Arterial Blood pCO2 at Patient Temp 42 mmHg (35-46) Arterial Blood pO2 at Patient Temp 125 mmHg (65-108) Arterial Blood HCO3 11 mmol/L (21-28) Arterial Blood Base Excess -19 mmol/L (-3-3) FiO2 100 White Blood Count 19.5 x10^3/uL (4.0-11.0) Red Blood Count 5.25 x10^6/uL (4.30-5.70) Hemoglobin 16.7 g/dL (13.0-17.5) Hematocrit 49.9 % (39.0-53.0) Mean Corpuscular Volume 95 fL (79-100) Mean Corpuscular Hemoglobin 32 pg (25-35) Mean Corpuscular Hemoglobin Concent 33 g/dL (31-37) Red Cell Distribution Width 13.7 % (11.5-14.5) Platelet Count 164 x10^3/uL (140-400) Neutrophils (%) (Auto) 81 % (31-73) Lymphocytes (%) (Auto) 15 % (24-48) Monocytes (%) (Auto) 3 % (0-9) Eosinophils (%) (Auto) 0 % (0-3) Basophils (%) (Auto) 0 % (0-3) Neutrophils # (Auto) 15.8 x10^3/uL (1.8-7.7) Lymphocytes # (Auto) 2.9 x10^3/uL (1.0-4.8) Monocytes # (Auto) 0.6 x10^3/uL (0.0-1.1) Eosinophils # (Auto) 0.1 x10^3/uL (0.0-0.7) Basophils # (Auto) 0.1 x10^3/uL (0.0-0.2) Segmented Neutrophils % 65 % (35-66) Band Neutrophils % 11 % (0-9) Lymphocytes % 17 % (24-48) Monocytes % 5 % (0-10) Basophils % 1 % (0-3) Metamyelocytes % 1 % (0-0) Platelet Estimate Adequate (ADEQUATE) Prothrombin Time 15.3 SEC (11.7-14.0) Prothromb Time International Ratio 1.2 (0.8-1.1) D-Dimer (Keisha) 12.31 ug/mlFEU (0.00-0.50) Sodium Level 139 mmol/L (136-145) Potassium Level 2.8 mmol/L (3.5-5.1) Chloride Level 100 mmol/L (98-107) Carbon Dioxide Level 20 mmol/L (21-32) Anion Gap 19 (6-14) 17 mmol/L (6-14) Blood Urea Nitrogen 20 mg/dL (8-26) Creatinine 1.8 mg/dL (0.7-1.3) Estimated GFR (Cockcroft-Gault) 38.2 BUN/Creatinine Ratio 11 (6-20) Glucose Level 265 mg/dL (70-99) 264 mg/dL (70-99) Calcium Level 8.6 mg/dL (8.5-10.1) Magnesium Level 2.7 mg/dL (1.8-2.4) Total Bilirubin 0.8 mg/dL (0.2-1.0) Aspartate Amino Transf (AST/SGOT) 159 U/L (15-37) Alanine Aminotransferase (ALT/SGPT) 190 U/L (16-63) Alkaline Phosphatase 109 U/L (46-116) Creatine Kinase 213 U/L (39-308) Troponin I Quantitative 0.228 ng/mL (0.000-0.055) SN-Jkn-B-Type Natriuretic Peptide 306 pg/mL (0-124) Total Protein 6.9 g/dL (6.4-8.2) Albumin 3.5 g/dL (3.4-5.0) Albumin/Globulin Ratio 1.0 (1.0-1.7) Lipase 115 U/L (73-393) Bedside Hemoglobin 17.3 g/dL (14-18) Bedside Hematocrit 51 % (37-52) Bedside Sodium 133 mmol/L (135-145) Bedside Potassium 6.5 mmol/L (3.5-5.0) Bedside Chloride 101 mmol/L (98-110) Bedside Total CO2 23 mmol/L (23-32) Bedside Blood Urea Nitrogen 31 mg/dL (8-26) Bedside Creatinine 1.6 mg/dL (0.5-1.4) Lactic Acid Level 9.5 mmol/L (0.4-2.0) Bedside Ionized Calcium (Clover) 0.99 mmol/L (1.13-1.32) Triglycerides Level 102 mg/dL (0-150) Cholesterol Level 148 mg/dL (0-200) LDL Cholesterol, Calculated 84 mg/dL (0-100) VLDL Cholesterol, Calculated 20 mg/dL (0-40) Non-HDL Cholesterol Calculated 104 mg/dL (0-129) HDL Cholesterol 44 mg/dL (40-60) Cholesterol/HDL Ratio 3.4 Thyroid Stimulating Hormone (TSH) 10.832 uIU/mL (0.358-3.74) Bedside Troponin I 0.09 ng/ml (<0.08) Test 01/23/19 17:00 01/23/19 20:13 01/23/19 20:15 01/23/19 20:18 O2 Saturation 99 % (92-99) 98 % (92-99) Arterial Blood pH 7.33 (7.35-7.45) 7.38 (7.35-7.45) Arterial Blood pCO2 at Patient Temp 39 mmHg (35-46) 30 mmHg (35-46) Arterial Blood pO2 at Patient Temp 441 mmHg (65-108) 136 mmHg (65-108) Arterial Blood HCO3 20 mmol/L (21-28) 17 mmol/L (21-28) Arterial Blood Base Excess -6 mmol/L (-3-3) -6 mmol/L (-3-3) FiO2 100 50 Sodium Level 139 mmol/L (136-145) Potassium Level 4.8 mmol/L (3.5-5.1) Chloride Level 103 mmol/L (98-107) Carbon Dioxide Level 19 mmol/L (21-32) Anion Gap 17 (6-14) Blood Urea Nitrogen 21 mg/dL (8-26) Creatinine 1.1 mg/dL (0.7-1.3) Estimated GFR (Cockcroft-Gault) 67.4 Glucose Level 180 mg/dL (70-99) Lactic Acid Level 3.1 mmol/L (0.4-2.0) Calcium Level 8.2 mg/dL (8.5-10.1) Magnesium Level 1.9 mg/dL (1.8-2.4) Troponin I Quantitative 11.377 ng/mL (0.000-0.055) Arterial Blood pH (Temp corrected) 7.37 Arterial Blood pCO2 (Temp correct) 31 mmHg Arterial Blood pO2 (Temp corrected) 140 mmHg Glucose (Fingerstick) 167 mg/dL (70-99) Test 01/23/19 22:00 01/23/19 23:05 01/24/19 00:00 01/24/19 00:01 Urine Collection Type Unknown Urine Color Yellow Urine Clarity Clear Urine pH 5.0 Urine Specific [place] >=1.030 Urine Protein 100 mg/dL (NEG-TRACE) Urine Glucose (UA) 100 mg/dL (NEG) Urine Ketones (Stick) 15 mg/dL (NEG) Urine Blood Large (NEG) Urine Nitrite Negative (NEG) Urine Bilirubin Negative (NEG) Urine Urobilinogen Dipstick 0.2 mg/dL (0.2 mg/dL) Urine Leukocyte Esterase Negative (NEG) Urine RBC 20-40 /HPF (0-2) Urine WBC Occ /HPF (0-4) Urine Bacteria 0 /HPF (0-FEW) Urine Hyaline Casts Occasional /HPF Urine Mucus Slight /LPF Glucose (Fingerstick) 166 mg/dL (70-99) 212 mg/dL (70-99) 190 mg/dL (70-99) Urine Opiates Screen Neg (NEG) Urine Methadone Screen Neg (NEG) Urine Barbiturates Neg (NEG) Urine Phencyclidine Screen Neg (NEG) Urine Amphetamine/Methamphetamine Neg (NEG) Urine Benzodiazepines Screen Pos (NEG) Urine Cocaine Screen Neg (NEG) Urine Cannabinoids Screen Pos (NEG) Urine Ethyl Alcohol Neg (NEG) White Blood Count 25.5 x10^3/uL (4.0-11.0) Red Blood Count 4.82 x10^6/uL (4.30-5.70) Hemoglobin 15.3 g/dL (13.0-17.5) Hematocrit 44.8 % (39.0-53.0) Mean Corpuscular Volume 93 fL (79-100) Mean Corpuscular Hemoglobin 32 pg (25-35) Mean Corpuscular Hemoglobin Concent 34 g/dL (31-37) Red Cell Distribution Width 13.2 % (11.5-14.5) Platelet Count 160 x10^3/uL (140-400) Neutrophils (%) (Auto) 95 % (31-73) Lymphocytes (%) (Auto) 2 % (24-48) Monocytes (%) (Auto) 3 % (0-9) Eosinophils (%) (Auto) 0 % (0-3) Basophils (%) (Auto) 0 % (0-3) Neutrophils # (Auto) 24.2 x10^3/uL (1.8-7.7) Lymphocytes # (Auto) 0.4 x10^3/uL (1.0-4.8) Monocytes # (Auto) 0.8 x10^3/uL (0.0-1.1) Eosinophils # (Auto) 0.0 x10^3/uL (0.0-0.7) Basophils # (Auto) 0.1 x10^3/uL (0.0-0.2) Prothrombin Time 19.1 SEC (11.7-14.0) Prothromb Time International Ratio 1.6 (0.8-1.1) Activated Partial Thromboplast Time 47 SEC (24-38) Sodium Level 139 mmol/L (136-145) Potassium Level 4.1 mmol/L (3.5-5.1) Chloride Level 106 mmol/L (98-107) Carbon Dioxide Level 20 mmol/L (21-32) Anion Gap 13 (6-14) Blood Urea Nitrogen 19 mg/dL (8-26) Creatinine 1.1 mg/dL (0.7-1.3) Estimated GFR (Cockcroft-Gault) 67.4 Glucose Level 189 mg/dL (70-99) Calcium Level 7.5 mg/dL (8.5-10.1) Phosphorus Level 3.5 mg/dL (2.6-4.7) Magnesium Level 2.2 mg/dL (1.8-2.4) Ionized Calcium 1.02 mmol/L (1.13-1.32) Test 01/24/19 01:05 01/24/19 02:16 01/24/19 03:08 01/24/19 04:09 Glucose (Fingerstick) 86 mg/dL (70-99) 101 mg/dL (70-99) 137 mg/dL (70-99) 127 mg/dL (70-99) Test 01/24/19 05:41 01/24/19 05:45 01/24/19 06:11 01/24/19 08:30 Glucose (Fingerstick) 118 mg/dL (70-99) 110 mg/dL (70-99) White Blood Count 22.6 x10^3/uL (4.0-11.0) Red Blood Count 4.76 x10^6/uL (4.30-5.70) Hemoglobin 15.1 g/dL (13.0-17.5) Hematocrit 44.5 % (39.0-53.0) Mean Corpuscular Volume 93 fL (79-100) Mean Corpuscular Hemoglobin 32 pg (25-35) Mean Corpuscular Hemoglobin Concent 34 g/dL (31-37) Red Cell Distribution Width 13.5 % (11.5-14.5) Platelet Count 138 x10^3/uL (140-400) Neutrophils (%) (Auto) 92 % (31-73) Lymphocytes (%) (Auto) 4 % (24-48) Monocytes (%) (Auto) 4 % (0-9) Eosinophils (%) (Auto) 0 % (0-3) Basophils (%) (Auto) 0 % (0-3) Neutrophils # (Auto) 20.8 x10^3/uL (1.8-7.7) Lymphocytes # (Auto) 0.9 x10^3/uL (1.0-4.8) Monocytes # (Auto) 1.0 x10^3/uL (0.0-1.1) Eosinophils # (Auto) 0.0 x10^3/uL (0.0-0.7) Basophils # (Auto) 0.0 x10^3/uL (0.0-0.2) Prothrombin Time 16.4 SEC (11.7-14.0) Prothromb Time International Ratio 1.4 (0.8-1.1) Activated Partial Thromboplast Time 39 SEC (24-38) Sodium Level 142 mmol/L (136-145) Potassium Level 3.9 mmol/L (3.5-5.1) Chloride Level 110 mmol/L (98-107) Carbon Dioxide Level 22 mmol/L (21-32) Anion Gap 10 (6-14) Blood Urea Nitrogen 16 mg/dL (8-26) Creatinine 0.9 mg/dL (0.7-1.3) Estimated GFR (Cockcroft-Gault) 85.0 Glucose Level 134 mg/dL (70-99) Calcium Level 7.6 mg/dL (8.5-10.1) Ionized Calcium 1.06 mmol/L (1.13-1.32) Phosphorus Level 2.8 mg/dL (2.6-4.7) Magnesium Level 2.1 mg/dL (1.8-2.4) Total Bilirubin 1.8 mg/dL (0.2-1.0) Direct Bilirubin 0.5 mg/dL (0.0-0.2) Aspartate Amino Transf (AST/SGOT) 294 U/L (15-37) Alanine Aminotransferase (ALT/SGPT) 181 U/L (16-63) Alkaline Phosphatase 68 U/L (46-116) Troponin I Quantitative 27.704 ng/mL (0.000-0.055) Total Protein 5.6 g/dL (6.4-8.2) Albumin 2.9 g/dL (3.4-5.0) Procalcitonin 0.40 ng/mL (0.00-0.10) Free Thyroxine 1.25 ng/dL (0.76-1.46) Mycoplasma Serology (LAB) Negative (NEGATIVE) O2 Saturation 96 % (92-99) Arterial Blood pH 7.24 (7.35-7.45) Arterial Blood pH (Temp corrected) 7.27 Arterial Blood pCO2 at Patient Temp 48 mmHg (35-46) Arterial Blood pCO2 (Temp correct) 43 mmHg Arterial Blood pO2 at Patient Temp 94 mmHg (65-108) Arterial Blood pO2 (Temp corrected) 82 mmHg Arterial Blood HCO3 20 mmol/L (21-28) Arterial Blood Base Excess -8 mmol/L (-3-3) FiO2 40 Test 01/24/19 08:36 01/24/19 12:15 Glucose (Fingerstick) 94 mg/dL (70-99) White Blood Count 20.4 x10^3/uL (4.0-11.0) Red Blood Count 4.75 x10^6/uL (4.30-5.70) Hemoglobin 14.9 g/dL (13.0-17.5) Hematocrit 43.9 % (39.0-53.0) Mean Corpuscular Volume 92 fL (79-100) Mean Corpuscular Hemoglobin 32 pg (25-35) Mean Corpuscular Hemoglobin Concent 34 g/dL (31-37) Red Cell Distribution Width 13.3 % (11.5-14.5) Platelet Count 130 x10^3/uL (140-400) Prothrombin Time 16.0 SEC (11.7-14.0) Prothromb Time International Ratio 1.3 (0.8-1.1) Activated Partial Thromboplast Time 51 SEC (24-38) Sodium Level 141 mmol/L (136-145) Potassium Level 3.8 mmol/L (3.5-5.1) Chloride Level 108 mmol/L (98-107) Carbon Dioxide Level 22 mmol/L (21-32) Anion Gap 11 (6-14) Blood Urea Nitrogen 15 mg/dL (8-26) Creatinine 0.7 mg/dL (0.7-1.3) Estimated GFR (Cockcroft-Gault) 113.5 Glucose Level 119 mg/dL (70-99) Calcium Level 7.6 mg/dL (8.5-10.1) Ionized Calcium 1.04 mmol/L (1.13-1.32) Phosphorus Level 2.1 mg/dL (2.6-4.7) Magnesium Level 2.5 mg/dL (1.8-2.4) ARMANDO MAHONEY MD Jan 24, 2019 14:02
--- NOTE | 2019-01-24 14:32 | NUR ---
pt continues with hypothermia protocol. pt last given verconium at 1000 this am for increased respirations and blood pressure. magnesium iv being replaced. consent signed by , Daina, for left chest tube placement due to pneumothorax.
[2019-01-24] MEDS ORDERED: AMIODARONE 900 MG in IV DEXTROSE 5% 500 ML IV SCH (15:00)
[2019-01-24] MEDS ORDERED: LIDOCAINE WITH 8.4% SOD BICARB 3 ML DISP.SYRIN. ONE (15:03)
--- NOTE | 2019-01-24 15:58 | RAD ---
Chest radiograph 01/24/2019 11:35 AM INDICATION: Pneumothorax COMPARISON: 01/23/2019 TECHNIQUE: Portable frontal semi-upright view of the chest is provided. FINDINGS: The cardiomediastinal silhouette is within normal limits. Endotracheal tube is identified with the distal tip terminating 4.1 cm above the level of the lia. Nasogastric tube is identified in similar position. There is a deep sulcus sign identified on the left with left apical pneumothorax measuring 3.8 cm in pleural separation, previously 2.5 cm. No pleural effusions or pulmonary vascular congestion. Right lung is clear. IMPRESSION: Stable support lines and tubes. Increase in size of left sided pneumothorax with 3.8 cm pleural separation, previously 2.5 cm. Electronically signed by: Renetta Rodriguez MD (01/24/2019 3:55 PM) [id number]
[2019-01-24] MEDS ORDERED: AMIODARONE 900 MG in IV DEXTROSE 5% 500 ML IV PRN (16:30)
--- NOTE | 2019-01-24 18:00 | NUR ---
dr merritt placed pigtail cooks catheter in anterior left upper chest without difficulty. pt on versed and fentanyl iv continuous. catheter dressed with gauze and opsite. catheter placed to -20 cm water suction continuous.
--- NOTE | 2019-01-24 19:14 | PDOC4 ---
PROCEDURE Procedure CHEST TUBE PLACEMENT NO IMMEDIATE COMPLICATION DICTATED JOE WHITE MD Jan 24, 2019 19:13
--- NOTE | 2019-01-24 20:52 | OP ---
DATE OF SURGERY: 01/24/2019 PROCEDURE: Chest tube placement. INDICATIONS: The patient with left-sided pneumothorax status post chest compression, subsequent rib fractures, undergoing a small-caliber catheter placement. Risks, benefits, and alternatives reviewed with the family. They consented. The patient was on mechanical ventilation, sedated and paralyzed, undergoing hypothermic protocol. DESCRIPTION OF PROCEDURE: The third intercostal space, left midclavicular area was prepped in sterile fashion. A stab wound was performed. A Cook catheter was placed under the sterile technique. Once the stab wound was made, the catheter over the needle was inserted into the subpleural space. The catheter was advanced. The needle was removed. I checked position by inserting the Heimlich valve under water. There were bubbles that were visualized with exhalation. IMPRESSION: Traumatic pneumothorax. PLAN: Chest tube placement as described above with no immediate complications. JOE WHITE MD DR: ABILIO/singh JOB#: [id number] / [id number]
[2019-01-24] MEDS: ATORVASTATIN CALCIUM 20 MG TABLET PO SCH (21:18)
--- NOTE | 2019-01-24 23:37 | CONS ---
DATE OF CONSULTATION: 01/24/2019 ATTENDING PHYSICIAN: Erika Balderas MD REASON FOR CONSULTATION: The patient seen in pulmonary consultation at the request of Dr. Balderas for vent management. HISTORY OF PRESENT ILLNESS: The patient is a 63-year-old that suffered an [id number] cardiopulmonary arrest. He had VFib. CPR was initiated for a total of 33 minutes. He received 5 electrical shocks. The patient was intubated. He was emergently taken to the cardiac catheterization lab, underwent 3 stents placement in the left circumflex. He is currently undergoing hypothermic protocol. He is on mechanical ventilation at 40%. His arterial blood gas revealed a pH of 7.41, PaCO2 of 29, PO2 of 108. The patient is otherwise receiving IV amiodarone. He is on no pressors. PAST MEDICAL HISTORY: Remarkable for previous left inguinal hernia repair. Otherwise, there is no prior history of coronary artery disease, myocardial infarction or COPD. REVIEW OF SYSTEMS: Unobtainable. ALLERGIES: No known drug allergies. SOCIAL HISTORY: He is a smoker. He is currently . FAMILY HISTORY: Remarkable for coronary artery disease. MEDICATIONS: His medication list was reviewed. He has been seen in consult by Infectious Disease Service and is currently receiving daptomycin and Zyvox along with Zosyn. PHYSICAL EXAMINATION: GENERAL: The patient was in the Intensive Care Unit. He is receiving IV amiodarone. He is currently on no pressors. He is status post stent placement to the left circumflex. VITAL SIGNS: Noted. HEENT: Eyes: The sclerae were nonicteric. NECK: Jugular venous distention was not elevated. No lymphadenopathy. CHEST: Full expansion. LUNGS: Anteriorly were clear. No wheezes. CARDIOVASCULAR: Regular rate and rhythm, with S1, S2, no S3. ABDOMEN: No bowel sounds. Soft. EXTREMITIES: No pitting edema. NEUROLOGIC: The patient was sedated. LABORATORY DATA: Reviewed. Arterial blood gas as indicated above. Electrolytes were noted. BUN and creatinine were noted. INR was 1.3. White count was 20,000; hemoglobin and hematocrit noted. Toxicology screen was positive for benzodiazepines and cannabinoid. UA was noted. Serology for mycoplasma was negative. Chest x-ray revealed a left-sided pneumothorax, right upper lobe dense infiltrate. CT chest revealed no evidence of aortic aneurysm; no evidence of central pulmonary emboli; there was a small left-sided pneumothorax; nondisplaced fracture of multiple bilateral anterior ribs; infiltrate in the posterior left lower lobe and interstitial opacities. IMPRESSION: 1. Acute respiratory failure secondary to [id number] cardiopulmonary arrest. 2. Xze-rq-xeypynoj cardiopulmonary arrest. 3. Ventricular fibrillation. 4. Coronary artery disease. 5. Ischemic cardiomyopathy with ejection fraction of 30-35%. 6. Status post stent placement to the left circumflex. 7. Baewt-ki-ajkkwsl diastolic heart failure. 8. Possible pneumonia/aspiration. 9. Left traumatic pneumothorax. 10. Elevated liver chemistries. 11. Acute renal failure. 12. Hypothyroidism. 13. Tobacco dependent. 14. Positive drug screen. PLAN: 1. Continue current support, adjust minute ventilation to normalized pH. 2. Empiric antibiotics per ID. 3. Case discussed with interventional radiologist. We will proceed with a small caliber chest tube placement for the left-sided pneumothorax. 4. Follow Cardiology input. 5. Amiodarone drip. 6. DVT/GI prophylaxis. 7. Initiate tube feeding once hypothermia protocol has been completed. The above was discussed with the at the bedside. I do appreciate the privilege in sharing in the patient's care. Total cumulative critical care time of 45 minutes reviewing current data, labs, chest x-ray and formulating a plan. JOE WHITE MD DR: ABILIO/singh JOB#: [id number] / [id number]
[2019-01-25] VITALS (39 sets, daily range): BP systolic 91–162; BP diastolic 50–78
[2019-01-25] MEDS: PIPERACILLIN/TAZOBACTAM 3.375 GM in IV NORMAL SALINE 50ML 50 ML IV SCH ×5 (00:14→23:53)
[2019-01-25] MEDS: POLYVINYL ALCOHOL 1.4% OPHTH SOLUTION 15ML BOTTLE. OU SCH ×5 (00:14→23:53)
[2019-01-25] MEDS: MIDAZOLAM 100mg/100ml NS BAG 100 ML IV PRN ×2 (00:36→23:11)
[2019-01-25] MEDS: ACETAMINOPHEN 650 MG/20.3 ML SOLUTION. NG SCH ×7 (00:37→23:53)
[2019-01-25] MEDS: busPIRone 10 MG TABLET. NG SCH ×2 (01:35→08:47)
[2019-01-25 06:10] LABS: BASO # 0.1 x10^3/uL (0.0-0.2); BASO % 1 % (0-3); EOS # 0.1 x10^3/uL (0.0-0.7); EOS % 1 % (0-3); HEMATOCRIT 43.5 % (39.0-53.0); HEMOGLOBIN 14.5 g/dL (13.0-17.5); LYMPH # 1.6 x10^3/uL (1.0-4.8); LYMPH % 11 % (24-48); MEAN CORPUSCULAR HEMOGLOBIN 31 pg (25-35); MEAN CORPUSCULAR HGB CONC 33 g/dL (31-37); MEAN CORPUSCULAR VOLUME 94 fL (79-100); MONO # 0.7 x10^3/uL (0.0-1.1); MONO % 5 % (0-9); NEUT # 12.2 x10^3/uL (1.8-7.7); NEUT % 83 % (31-73); PLATELET COUNT 136 x10^3/uL (140-400); RED BLOOD COUNT 4.63 x10^6/uL (4.30-5.70); RED CELL DISTRIBUTION WIDTH 13.7 % (11.5-14.5); WHITE BLOOD COUNT 14.7 x10^3/uL (4.0-11.0)
[2019-01-25 06:25] LABS: ALBUMIN 2.5 g/dL (3.4-5.0); ALBUMIN/GLOBULIN RATIO 0.9 (1.0-1.7); CALCIUM 7.3 mg/dL (8.5-10.1); CREATININE 0.9 mg/dL (0.7-1.3); MAGNESIUM 2.3 mg/dL (1.8-2.4); PHOSPHORUS 3.7 mg/dL (2.6-4.7); POTASSIUM 3.4 mmol/L (3.5-5.1); TOTAL BILIRUBIN 1.4 mg/dL (0.2-1.0); TOTAL PROTEIN 5.2 g/dL (6.4-8.2)
--- NOTE | 2019-01-25 07:22 | NUR ---
Pt potassium below 4.5 at 2100 rewarming process initiated at 2200. Pt currently stable will continue to monitor.
--- NOTE | 2019-01-25 08:04 | PDOC ---
Infectious Disease Note Subjective Subjective intubated/sedated ROS ROS o/w neg Vital Sign Vital Signs Vital Signs Date Time Temp Pulse Resp B/P (MAP) Pulse Ox O2 Delivery O2 Flow Rate FiO2 01/25/19 07:00 94.3 51 24 91/50 100 Ventilator 01/25/19 01:35 15.0 Physical Exam PHYSICAL EXAM GEN: Intubated/sedated HEENT: Pupils are small, minimally reactive. He has normal conjunctivae. He is orally intubated. NECK: Supple. No JVD. LUNGS: Decreased at bases. Left chest tube HEART: S1, S2. ABDOMEN: Minimally distended, + BS bowel sounds. He has a well-approximated incision in the left lower quadrant. GENITOURINARY: العلي is in place. EXTREMITIES: No clubbing or cyanosis. No gross edema. He has IVs in his right upper extremity x 3. Left upper extremity has 1. Right groin area has an art line in place. SKIN: Warm to touch without signs of rash. NEUROLOGICAL: He is intubated and sedated. Labs Lab Laboratory Tests Test 01/24/19 08:30 01/24/19 08:36 01/24/19 12:15 01/24/19 13:30 O2 Saturation 96 % (92-99) 98 % (92-99) Arterial Blood pH 7.24 (7.35-7.45) 7.41 (7.35-7.45) Arterial Blood pH (Temp corrected) 7.27 7.47 Arterial Blood pCO2 at Patient Temp 48 mmHg (35-46) 29 mmHg (35-46) Arterial Blood pCO2 (Temp correct) 43 mmHg 25 mmHg Arterial Blood pO2 at Patient Temp 94 mmHg (65-108) 108 mmHg (65-108) Arterial Blood pO2 (Temp corrected) 82 mmHg 88 mmHg Arterial Blood HCO3 20 mmol/L (21-28) 18 mmol/L (21-28) Arterial Blood Base Excess -8 mmol/L (-3-3) -5 mmol/L (-3-3) FiO2 40 40 Glucose (Fingerstick) 94 mg/dL (70-99) White Blood Count 20.4 x10^3/uL (4.0-11.0) Red Blood Count 4.75 x10^6/uL (4.30-5.70) Hemoglobin 14.9 g/dL (13.0-17.5) Hematocrit 43.9 % (39.0-53.0) Mean Corpuscular Volume 92 fL (79-100) Mean Corpuscular Hemoglobin 32 pg (25-35) Mean Corpuscular Hemoglobin Concent 34 g/dL (31-37) Red Cell Distribution Width 13.3 % (11.5-14.5) Platelet Count 130 x10^3/uL (140-400) Prothrombin Time 16.0 SEC (11.7-14.0) Prothromb Time International Ratio 1.3 (0.8-1.1) Activated Partial Thromboplast Time 51 SEC (24-38) Sodium Level 141 mmol/L (136-145) Potassium Level 3.8 mmol/L (3.5-5.1) Chloride Level 108 mmol/L (98-107) Carbon Dioxide Level 22 mmol/L (21-32) Anion Gap 11 (6-14) Blood Urea Nitrogen 15 mg/dL (8-26) Creatinine 0.7 mg/dL (0.7-1.3) Estimated GFR (Cockcroft-Gault) 113.5 Glucose Level 119 mg/dL (70-99) Calcium Level 7.6 mg/dL (8.5-10.1) Ionized Calcium 1.04 mmol/L (1.13-1.32) Phosphorus Level 2.1 mg/dL (2.6-4.7) Magnesium Level 2.5 mg/dL (1.8-2.4) Test 01/24/19 17:42 01/24/19 21:00 01/24/19 21:12 01/24/19 23:01 Glucose (Fingerstick) 81 mg/dL (70-99) 82 mg/dL (70-99) 117 mg/dL (70-99) Potassium Level 3.3 mmol/L (3.5-5.1) Test 01/24/19 23:54 01/25/19 01:06 01/25/19 02:36 01/25/19 05:30 Glucose (Fingerstick) 100 mg/dL (70-99) 93 mg/dL (70-99) 82 mg/dL (70-99) White Blood Count 14.7 x10^3/uL (4.0-11.0) Red Blood Count 4.63 x10^6/uL (4.30-5.70) Hemoglobin 14.5 g/dL (13.0-17.5) Hematocrit 43.5 % (39.0-53.0) Mean Corpuscular Volume 94 fL (79-100) Mean Corpuscular Hemoglobin 31 pg (25-35) Mean Corpuscular Hemoglobin Concent 33 g/dL (31-37) Red Cell Distribution Width 13.7 % (11.5-14.5) Platelet Count 136 x10^3/uL (140-400) Neutrophils (%) (Auto) 83 % (31-73) Lymphocytes (%) (Auto) 11 % (24-48) Monocytes (%) (Auto) 5 % (0-9) Eosinophils (%) (Auto) 1 % (0-3) Basophils (%) (Auto) 1 % (0-3) Neutrophils # (Auto) 12.2 x10^3/uL (1.8-7.7) Lymphocytes # (Auto) 1.6 x10^3/uL (1.0-4.8) Monocytes # (Auto) 0.7 x10^3/uL (0.0-1.1) Eosinophils # (Auto) 0.1 x10^3/uL (0.0-0.7) Basophils # (Auto) 0.1 x10^3/uL (0.0-0.2) Sodium Level 145 mmol/L (136-145) Potassium Level 3.4 mmol/L (3.5-5.1) Chloride Level 114 mmol/L (98-107) Carbon Dioxide Level 19 mmol/L (21-32) Anion Gap 12 (6-14) Blood Urea Nitrogen 14 mg/dL (8-26) Creatinine 0.9 mg/dL (0.7-1.3) Estimated GFR (Cockcroft-Gault) 85.0 BUN/Creatinine Ratio 16 (6-20) Glucose Level 92 mg/dL (70-99) Calcium Level 7.3 mg/dL (8.5-10.1) Phosphorus Level 3.7 mg/dL (2.6-4.7) Magnesium Level 2.3 mg/dL (1.8-2.4) Total Bilirubin 1.4 mg/dL (0.2-1.0) Aspartate Amino Transf (AST/SGOT) 307 U/L (15-37) Alanine Aminotransferase (ALT/SGPT) 165 U/L (16-63) Alkaline Phosphatase 63 U/L (46-116) Total Protein 5.2 g/dL (6.4-8.2) Albumin 2.5 g/dL (3.4-5.0) Albumin/Globulin Ratio 0.9 (1.0-1.7) Test 01/25/19 05:54 Glucose (Fingerstick) 79 mg/dL (70-99) Micro IMPRESSION: 1. No evidence of aortic aneurysm or definite dissection. 2. No evidence of central pulmonary embolism. Suboptimal evaluation of segmental pulmonary artery branches. 3. Small left pneumothorax. 4. Probable nondisplaced fractures of multiple bilateral upper anterior ribs. There may also be mild nondisplaced fracture of the mid sternum 5. Mild diffuse small bowel wall thickening, could indicate intramural hemorrhage or inflammatory or infectious enteritis. 6. Consolidation or infiltrate in the posterior left lower lobe. 7. Interstitial opacities, greatest in right upper lobe, indeterminate for acute infiltrates/edema or more chronic. Objective Assessment Sepsis - POA 01/23 -Blood cults neg so far. 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 reactive Diffuse small bowel thickening on CT Plan Plan of Care Cont Dose dapto for blood and Zyvox for lung Cont Zosyn for potential aspiration/? abdominal and CAP. Cont Doxy for atypicals and given Afib avoid quinolones/macrolides F/u Strep and legionella antigens and sputum cult F/u labs and cults Try to taper abx soon Critically ill D/w nursing OLI BOBO MD Jan 25, 2019 08:04
[2019-01-25 08:21] LABS: BASE EXCESS ABG -6 mmol/L (-3-3); HCO3 ABG 17 mmol/L (21-28); PCO2 ABG 29 mmHg (35-46); PO2 ABG 173 mmHg (65-108); SAT O2 ABG 99 % (92-99)
[2019-01-25 08:23] LABS: FIO2 ABG 40
[2019-01-25] MEDS: HEPARIN for SUB-Q USE 5,000 UNIT/ML VIAL. SQ SCH ×2 (08:40→21:03)
[2019-01-25] MEDS: PANTOPRAZOLE IV PUSH 40 MG VIAL. IVP SCH (08:40)
[2019-01-25] MEDS: ASPIRIN ENTERIC COATED 325 MG TABLET.DR. PO SCH (08:41)
[2019-01-25] MEDS: CLOPIDOGREL BISULFATE 75 MG TABLET PO SCH (08:41)
[2019-01-25] MEDS: DOXYCYCLINE HYCLATE 100 MG in IV DEXTROSE 5% 100ML 100 ML IV SCH ×2 (08:47→20:59)
[2019-01-25] MEDS ORDERED: POTASSIUM CHLORIDE 10MEQ 100 ML IV SCH (09:00)
--- NOTE | 2019-01-25 09:44 | PDOC ---
PULMONARY PROGRESS NOTES Subjective SEDATED REWARMING CHEST TUBE NO AIR LEAK Vitals Vital Signs Date Time Temp Pulse Resp B/P (MAP) Pulse Ox O2 Delivery O2 Flow Rate FiO2 01/25/19 09:00 93.5 50 24 117/63 100 Ventilator 01/25/19 01:35 15.0 Lungs: Crackles Cardiovascular: S1, S2 Abdomen: Soft Extremities: Other (EDEMA) Skin: Warm Labs Laboratory Tests Test 01/23/19 15:15 01/23/19 15:20 01/23/19 15:25 01/23/19 15:26 O2 Saturation 97 % (92-99) Arterial Blood pH 7.04 (7.35-7.45) Arterial Blood pCO2 at Patient Temp 42 mmHg (35-46) Arterial Blood pO2 at Patient Temp 125 mmHg (65-108) Arterial Blood HCO3 11 mmol/L (21-28) Arterial Blood Base Excess -19 mmol/L (-3-3) FiO2 100 White Blood Count 19.5 x10^3/uL (4.0-11.0) Red Blood Count 5.25 x10^6/uL (4.30-5.70) Hemoglobin 16.7 g/dL (13.0-17.5) Hematocrit 49.9 % (39.0-53.0) Mean Corpuscular Volume 95 fL (79-100) Mean Corpuscular Hemoglobin 32 pg (25-35) Mean Corpuscular Hemoglobin Concent 33 g/dL (31-37) Red Cell Distribution Width 13.7 % (11.5-14.5) Platelet Count 164 x10^3/uL (140-400) Neutrophils (%) (Auto) 81 % (31-73) Lymphocytes (%) (Auto) 15 % (24-48) Monocytes (%) (Auto) 3 % (0-9) Eosinophils (%) (Auto) 0 % (0-3) Basophils (%) (Auto) 0 % (0-3) Neutrophils # (Auto) 15.8 x10^3/uL (1.8-7.7) Lymphocytes # (Auto) 2.9 x10^3/uL (1.0-4.8) Monocytes # (Auto) 0.6 x10^3/uL (0.0-1.1) Eosinophils # (Auto) 0.1 x10^3/uL (0.0-0.7) Basophils # (Auto) 0.1 x10^3/uL (0.0-0.2) Segmented Neutrophils % 65 % (35-66) Band Neutrophils % 11 % (0-9) Lymphocytes % 17 % (24-48) Monocytes % 5 % (0-10) Basophils % 1 % (0-3) Metamyelocytes % 1 % (0-0) Platelet Estimate Adequate (ADEQUATE) Prothrombin Time 15.3 SEC (11.7-14.0) Prothromb Time International Ratio 1.2 (0.8-1.1) D-Dimer (Keisha) 12.31 ug/mlFEU (0.00-0.50) Sodium Level 139 mmol/L (136-145) Potassium Level 2.8 mmol/L (3.5-5.1) Chloride Level 100 mmol/L (98-107) Carbon Dioxide Level 20 mmol/L (21-32) Anion Gap 19 (6-14) 17 mmol/L (6-14) Blood Urea Nitrogen 20 mg/dL (8-26) Creatinine 1.8 mg/dL (0.7-1.3) Estimated GFR (Cockcroft-Gault) 38.2 BUN/Creatinine Ratio 11 (6-20) Glucose Level 265 mg/dL (70-99) 264 mg/dL (70-99) Calcium Level 8.6 mg/dL (8.5-10.1) Magnesium Level 2.7 mg/dL (1.8-2.4) Total Bilirubin 0.8 mg/dL (0.2-1.0) Aspartate Amino Transf (AST/SGOT) 159 U/L (15-37) Alanine Aminotransferase (ALT/SGPT) 190 U/L (16-63) Alkaline Phosphatase 109 U/L (46-116) Creatine Kinase 213 U/L (39-308) Troponin I Quantitative 0.228 ng/mL (0.000-0.055) HO-Seu-E-Type Natriuretic Peptide 306 pg/mL (0-124) Total Protein 6.9 g/dL (6.4-8.2) Albumin 3.5 g/dL (3.4-5.0) Albumin/Globulin Ratio 1.0 (1.0-1.7) Lipase 115 U/L (73-393) Bedside Hemoglobin 17.3 g/dL (14-18) Bedside Hematocrit 51 % (37-52) Bedside Sodium 133 mmol/L (135-145) Bedside Potassium 6.5 mmol/L (3.5-5.0) Bedside Chloride 101 mmol/L (98-110) Bedside Total CO2 23 mmol/L (23-32) Bedside Blood Urea Nitrogen 31 mg/dL (8-26) Bedside Creatinine 1.6 mg/dL (0.5-1.4) Lactic Acid Level 9.5 mmol/L (0.4-2.0) Bedside Ionized Calcium (Clover) 0.99 mmol/L (1.13-1.32) Triglycerides Level 102 mg/dL (0-150) Cholesterol Level 148 mg/dL (0-200) LDL Cholesterol, Calculated 84 mg/dL (0-100) VLDL Cholesterol, Calculated 20 mg/dL (0-40) Non-HDL Cholesterol Calculated 104 mg/dL (0-129) HDL Cholesterol 44 mg/dL (40-60) Cholesterol/HDL Ratio 3.4 Thyroid Stimulating Hormone (TSH) 10.832 uIU/mL (0.358-3.74) Bedside Troponin I 0.09 ng/ml (<0.08) Test 01/23/19 17:00 01/23/19 20:13 01/23/19 20:15 01/23/19 20:18 O2 Saturation 99 % (92-99) 98 % (92-99) Arterial Blood pH 7.33 (7.35-7.45) 7.38 (7.35-7.45) Arterial Blood pCO2 at Patient Temp 39 mmHg (35-46) 30 mmHg (35-46) Arterial Blood pO2 at Patient Temp 441 mmHg (65-108) 136 mmHg (65-108) Arterial Blood HCO3 20 mmol/L (21-28) 17 mmol/L (21-28) Arterial Blood Base Excess -6 mmol/L (-3-3) -6 mmol/L (-3-3) FiO2 100 50 Sodium Level 139 mmol/L (136-145) Potassium Level 4.8 mmol/L (3.5-5.1) Chloride Level 103 mmol/L (98-107) Carbon Dioxide Level 19 mmol/L (21-32) Anion Gap 17 (6-14) Blood Urea Nitrogen 21 mg/dL (8-26) Creatinine 1.1 mg/dL (0.7-1.3) Estimated GFR (Cockcroft-Gault) 67.4 Glucose Level 180 mg/dL (70-99) Lactic Acid Level 3.1 mmol/L (0.4-2.0) Calcium Level 8.2 mg/dL (8.5-10.1) Magnesium Level 1.9 mg/dL (1.8-2.4) Troponin I Quantitative 11.377 ng/mL (0.000-0.055) Arterial Blood pH (Temp corrected) 7.37 Arterial Blood pCO2 (Temp correct) 31 mmHg Arterial Blood pO2 (Temp corrected) 140 mmHg Glucose (Fingerstick) 167 mg/dL (70-99) Test 01/23/19 22:00 01/23/19 23:05 01/24/19 00:00 01/24/19 00:01 Urine Collection Type Unknown Urine Color Yellow Urine Clarity Clear Urine pH 5.0 Urine Specific [place] >=1.030 Urine Protein 100 mg/dL (NEG-TRACE) Urine Glucose (UA) 100 mg/dL (NEG) Urine Ketones (Stick) 15 mg/dL (NEG) Urine Blood Large (NEG) Urine Nitrite Negative (NEG) Urine Bilirubin Negative (NEG) Urine Urobilinogen Dipstick 0.2 mg/dL (0.2 mg/dL) Urine Leukocyte Esterase Negative (NEG) Urine RBC 20-40 /HPF (0-2) Urine WBC Occ /HPF (0-4) Urine Bacteria 0 /HPF (0-FEW) Urine Hyaline Casts Occasional /HPF Urine Mucus Slight /LPF Glucose (Fingerstick) 166 mg/dL (70-99) 212 mg/dL (70-99) 190 mg/dL (70-99) Urine Opiates Screen Neg (NEG) Urine Methadone Screen Neg (NEG) Urine Barbiturates Neg (NEG) Urine Phencyclidine Screen Neg (NEG) Urine Amphetamine/Methamphetamine Neg (NEG) Urine Benzodiazepines Screen Pos (NEG) Urine Cocaine Screen Neg (NEG) Urine Cannabinoids Screen Pos (NEG) Urine Ethyl Alcohol Neg (NEG) White Blood Count 25.5 x10^3/uL (4.0-11.0) Red Blood Count 4.82 x10^6/uL (4.30-5.70) Hemoglobin 15.3 g/dL (13.0-17.5) Hematocrit 44.8 % (39.0-53.0) Mean Corpuscular Volume 93 fL (79-100) Mean Corpuscular Hemoglobin 32 pg (25-35) Mean Corpuscular Hemoglobin Concent 34 g/dL (31-37) Red Cell Distribution Width 13.2 % (11.5-14.5) Platelet Count 160 x10^3/uL (140-400) Neutrophils (%) (Auto) 95 % (31-73) Lymphocytes (%) (Auto) 2 % (24-48) Monocytes (%) (Auto) 3 % (0-9) Eosinophils (%) (Auto) 0 % (0-3) Basophils (%) (Auto) 0 % (0-3) Neutrophils # (Auto) 24.2 x10^3/uL (1.8-7.7) Lymphocytes # (Auto) 0.4 x10^3/uL (1.0-4.8) Monocytes # (Auto) 0.8 x10^3/uL (0.0-1.1) Eosinophils # (Auto) 0.0 x10^3/uL (0.0-0.7) Basophils # (Auto) 0.1 x10^3/uL (0.0-0.2) Prothrombin Time 19.1 SEC (11.7-14.0) Prothromb Time International Ratio 1.6 (0.8-1.1) Activated Partial Thromboplast Time 47 SEC (24-38) Sodium Level 139 mmol/L (136-145) Potassium Level 4.1 mmol/L (3.5-5.1) Chloride Level 106 mmol/L (98-107) Carbon Dioxide Level 20 mmol/L (21-32) Anion Gap 13 (6-14) Blood Urea Nitrogen 19 mg/dL (8-26) Creatinine 1.1 mg/dL (0.7-1.3) Estimated GFR (Cockcroft-Gault) 67.4 Glucose Level 189 mg/dL (70-99) Calcium Level 7.5 mg/dL (8.5-10.1) Phosphorus Level 3.5 mg/dL (2.6-4.7) Magnesium Level 2.2 mg/dL (1.8-2.4) Ionized Calcium 1.02 mmol/L (1.13-1.32) Test 01/24/19 01:05 01/24/19 02:16 01/24/19 03:08 01/24/19 04:09 Glucose (Fingerstick) 86 mg/dL (70-99) 101 mg/dL (70-99) 137 mg/dL (70-99) 127 mg/dL (70-99) Test 01/24/19 05:41 01/24/19 05:45 01/24/19 06:11 01/24/19 08:30 Glucose (Fingerstick) 118 mg/dL (70-99) 110 mg/dL (70-99) White Blood Count 22.6 x10^3/uL (4.0-11.0) Red Blood Count 4.76 x10^6/uL (4.30-5.70) Hemoglobin 15.1 g/dL (13.0-17.5) Hematocrit 44.5 % (39.0-53.0) Mean Corpuscular Volume 93 fL (79-100) Mean Corpuscular Hemoglobin 32 pg (25-35) Mean Corpuscular Hemoglobin Concent 34 g/dL (31-37) Red Cell Distribution Width 13.5 % (11.5-14.5) Platelet Count 138 x10^3/uL (140-400) Neutrophils (%) (Auto) 92 % (31-73) Lymphocytes (%) (Auto) 4 % (24-48) Monocytes (%) (Auto) 4 % (0-9) Eosinophils (%) (Auto) 0 % (0-3) Basophils (%) (Auto) 0 % (0-3) Neutrophils # (Auto) 20.8 x10^3/uL (1.8-7.7) Lymphocytes # (Auto) 0.9 x10^3/uL (1.0-4.8) Monocytes # (Auto) 1.0 x10^3/uL (0.0-1.1) Eosinophils # (Auto) 0.0 x10^3/uL (0.0-0.7) Basophils # (Auto) 0.0 x10^3/uL (0.0-0.2) Prothrombin Time 16.4 SEC (11.7-14.0) Prothromb Time International Ratio 1.4 (0.8-1.1) Activated Partial Thromboplast Time 39 SEC (24-38) Sodium Level 142 mmol/L (136-145) Potassium Level 3.9 mmol/L (3.5-5.1) Chloride Level 110 mmol/L (98-107) Carbon Dioxide Level 22 mmol/L (21-32) Anion Gap 10 (6-14) Blood Urea Nitrogen 16 mg/dL (8-26) Creatinine 0.9 mg/dL (0.7-1.3) Estimated GFR (Cockcroft-Gault) 85.0 Glucose Level 134 mg/dL (70-99) Calcium Level 7.6 mg/dL (8.5-10.1) Ionized Calcium 1.06 mmol/L (1.13-1.32) Phosphorus Level 2.8 mg/dL (2.6-4.7) Magnesium Level 2.1 mg/dL (1.8-2.4) Total Bilirubin 1.8 mg/dL (0.2-1.0) Direct Bilirubin 0.5 mg/dL (0.0-0.2) Aspartate Amino Transf (AST/SGOT) 294 U/L (15-37) Alanine Aminotransferase (ALT/SGPT) 181 U/L (16-63) Alkaline Phosphatase 68 U/L (46-116) Troponin I Quantitative 27.704 ng/mL (0.000-0.055) Total Protein 5.6 g/dL (6.4-8.2) Albumin 2.9 g/dL (3.4-5.0) Procalcitonin 0.40 ng/mL (0.00-0.10) Free Thyroxine 1.25 ng/dL (0.76-1.46) Mycoplasma Serology (LAB) Negative (NEGATIVE) O2 Saturation 96 % (92-99) Arterial Blood pH 7.24 (7.35-7.45) Arterial Blood pH (Temp corrected) 7.27 Arterial Blood pCO2 at Patient Temp 48 mmHg (35-46) Arterial Blood pCO2 (Temp correct) 43 mmHg Arterial Blood pO2 at Patient Temp 94 mmHg (65-108) Arterial Blood pO2 (Temp corrected) 82 mmHg Arterial Blood HCO3 20 mmol/L (21-28) Arterial Blood Base Excess -8 mmol/L (-3-3) FiO2 40 Test 01/24/19 08:36 01/24/19 12:15 01/24/19 13:30 01/24/19 17:42 Glucose (Fingerstick) 94 mg/dL (70-99) 81 mg/dL (70-99) White Blood Count 20.4 x10^3/uL (4.0-11.0) Red Blood Count 4.75 x10^6/uL (4.30-5.70) Hemoglobin 14.9 g/dL (13.0-17.5) Hematocrit 43.9 % (39.0-53.0) Mean Corpuscular Volume 92 fL (79-100) Mean Corpuscular Hemoglobin 32 pg (25-35) Mean Corpuscular Hemoglobin Concent 34 g/dL (31-37) Red Cell Distribution Width 13.3 % (11.5-14.5) Platelet Count 130 x10^3/uL (140-400) Prothrombin Time 16.0 SEC (11.7-14.0) Prothromb Time International Ratio 1.3 (0.8-1.1) Activated Partial Thromboplast Time 51 SEC (24-38) Sodium Level 141 mmol/L (136-145) Potassium Level 3.8 mmol/L (3.5-5.1) Chloride Level 108 mmol/L (98-107) Carbon Dioxide Level 22 mmol/L (21-32) Anion Gap 11 (6-14) Blood Urea Nitrogen 15 mg/dL (8-26) Creatinine 0.7 mg/dL (0.7-1.3) Estimated GFR (Cockcroft-Gault) 113.5 Glucose Level 119 mg/dL (70-99) Calcium Level 7.6 mg/dL (8.5-10.1) Ionized Calcium 1.04 mmol/L (1.13-1.32) Phosphorus Level 2.1 mg/dL (2.6-4.7) Magnesium Level 2.5 mg/dL (1.8-2.4) O2 Saturation 98 % (92-99) Arterial Blood pH 7.41 (7.35-7.45) Arterial Blood pH (Temp corrected) 7.47 Arterial Blood pCO2 at Patient Temp 29 mmHg (35-46) Arterial Blood pCO2 (Temp correct) 25 mmHg Arterial Blood pO2 at Patient Temp 108 mmHg (65-108) Arterial Blood pO2 (Temp corrected) 88 mmHg Arterial Blood HCO3 18 mmol/L (21-28) Arterial Blood Base Excess -5 mmol/L (-3-3) FiO2 40 Test 01/24/19 21:00 01/24/19 21:12 01/24/19 23:01 01/24/19 23:54 Potassium Level 3.3 mmol/L (3.5-5.1) Glucose (Fingerstick) 82 mg/dL (70-99) 117 mg/dL (70-99) 100 mg/dL (70-99) Test 01/25/19 01:06 01/25/19 02:36 01/25/19 05:30 01/25/19 05:54 Glucose (Fingerstick) 93 mg/dL (70-99) 82 mg/dL (70-99) 79 mg/dL (70-99) White Blood Count 14.7 x10^3/uL (4.0-11.0) Red Blood Count 4.63 x10^6/uL (4.30-5.70) Hemoglobin 14.5 g/dL (13.0-17.5) Hematocrit 43.5 % (39.0-53.0) Mean Corpuscular Volume 94 fL (79-100) Mean Corpuscular Hemoglobin 31 pg (25-35) Mean Corpuscular Hemoglobin Concent 33 g/dL (31-37) Red Cell Distribution Width 13.7 % (11.5-14.5) Platelet Count 136 x10^3/uL (140-400) Neutrophils (%) (Auto) 83 % (31-73) Lymphocytes (%) (Auto) 11 % (24-48) Monocytes (%) (Auto) 5 % (0-9) Eosinophils (%) (Auto) 1 % (0-3) Basophils (%) (Auto) 1 % (0-3) Neutrophils # (Auto) 12.2 x10^3/uL (1.8-7.7) Lymphocytes # (Auto) 1.6 x10^3/uL (1.0-4.8) Monocytes # (Auto) 0.7 x10^3/uL (0.0-1.1) Eosinophils # (Auto) 0.1 x10^3/uL (0.0-0.7) Basophils # (Auto) 0.1 x10^3/uL (0.0-0.2) Sodium Level 145 mmol/L (136-145) Potassium Level 3.4 mmol/L (3.5-5.1) Chloride Level 114 mmol/L (98-107) Carbon Dioxide Level 19 mmol/L (21-32) Anion Gap 12 (6-14) Blood Urea Nitrogen 14 mg/dL (8-26) Creatinine 0.9 mg/dL (0.7-1.3) Estimated GFR (Cockcroft-Gault) 85.0 BUN/Creatinine Ratio 16 (6-20) Glucose Level 92 mg/dL (70-99) Calcium Level 7.3 mg/dL (8.5-10.1) Phosphorus Level 3.7 mg/dL (2.6-4.7) Magnesium Level 2.3 mg/dL (1.8-2.4) Total Bilirubin 1.4 mg/dL (0.2-1.0) Aspartate Amino Transf (AST/SGOT) 307 U/L (15-37) Alanine Aminotransferase (ALT/SGPT) 165 U/L (16-63) Alkaline Phosphatase 63 U/L (46-116) Total Protein 5.2 g/dL (6.4-8.2) Albumin 2.5 g/dL (3.4-5.0) Albumin/Globulin Ratio 0.9 (1.0-1.7) Test 01/25/19 08:00 01/25/19 08:17 O2 Saturation 99 % (92-99) Arterial Blood pH 7.39 (7.35-7.45) Arterial Blood pCO2 at Patient Temp 29 mmHg (35-46) Arterial Blood pO2 at Patient Temp 173 mmHg (65-108) Arterial Blood HCO3 17 mmol/L (21-28) Arterial Blood Base Excess -6 mmol/L (-3-3) FiO2 40 Glucose (Fingerstick) 87 mg/dL (70-99) Laboratory Tests Test 01/24/19 12:15 01/24/19 13:30 01/24/19 17:42 01/24/19 21:00 White Blood Count 20.4 x10^3/uL (4.0-11.0) Red Blood Count 4.75 x10^6/uL (4.30-5.70) Hemoglobin 14.9 g/dL (13.0-17.5) Hematocrit 43.9 % (39.0-53.0) Mean Corpuscular Volume 92 fL (79-100) Mean Corpuscular Hemoglobin 32 pg (25-35) Mean Corpuscular Hemoglobin Concent 34 g/dL (31-37) Red Cell Distribution Width 13.3 % (11.5-14.5) Platelet Count 130 x10^3/uL (140-400) Prothrombin Time 16.0 SEC (11.7-14.0) Prothromb Time International Ratio 1.3 (0.8-1.1) Activated Partial Thromboplast Time 51 SEC (24-38) Sodium Level 141 mmol/L (136-145) Potassium Level 3.8 mmol/L (3.5-5.1) 3.3 mmol/L (3.5-5.1) Chloride Level 108 mmol/L (98-107) Carbon Dioxide Level 22 mmol/L (21-32) Anion Gap 11 (6-14) Blood Urea Nitrogen 15 mg/dL (8-26) Creatinine 0.7 mg/dL (0.7-1.3) Estimated GFR (Cockcroft-Gault) 113.5 Glucose Level 119 mg/dL (70-99) Calcium Level 7.6 mg/dL (8.5-10.1) Ionized Calcium 1.04 mmol/L (1.13-1.32) Phosphorus Level 2.1 mg/dL (2.6-4.7) Magnesium Level 2.5 mg/dL (1.8-2.4) O2 Saturation 98 % (92-99) Arterial Blood pH 7.41 (7.35-7.45) Arterial Blood pH (Temp corrected) 7.47 Arterial Blood pCO2 at Patient Temp 29 mmHg (35-46) Arterial Blood pCO2 (Temp correct) 25 mmHg Arterial Blood pO2 at Patient Temp 108 mmHg (65-108) Arterial Blood pO2 (Temp corrected) 88 mmHg Arterial Blood HCO3 18 mmol/L (21-28) Arterial Blood Base Excess -5 mmol/L (-3-3) FiO2 40 Glucose (Fingerstick) 81 mg/dL (70-99) Test 01/24/19 21:12 01/24/19 23:01 01/24/19 23:54 01/25/19 01:06 Glucose (Fingerstick) 82 mg/dL (70-99) 117 mg/dL (70-99) 100 mg/dL (70-99) 93 mg/dL (70-99) Test 01/25/19 02:36 01/25/19 05:30 01/25/19 05:54 01/25/19 08:00 Glucose (Fingerstick) 82 mg/dL (70-99) 79 mg/dL (70-99) White Blood Count 14.7 x10^3/uL (4.0-11.0) Red Blood Count 4.63 x10^6/uL (4.30-5.70) Hemoglobin 14.5 g/dL (13.0-17.5) Hematocrit 43.5 % (39.0-53.0) Mean Corpuscular Volume 94 fL (79-100) Mean Corpuscular Hemoglobin 31 pg (25-35) Mean Corpuscular Hemoglobin Concent 33 g/dL (31-37) Red Cell Distribution Width 13.7 % (11.5-14.5) Platelet Count 136 x10^3/uL (140-400) Neutrophils (%) (Auto) 83 % (31-73) Lymphocytes (%) (Auto) 11 % (24-48) Monocytes (%) (Auto) 5 % (0-9) Eosinophils (%) (Auto) 1 % (0-3) Basophils (%) (Auto) 1 % (0-3) Neutrophils # (Auto) 12.2 x10^3/uL (1.8-7.7) Lymphocytes # (Auto) 1.6 x10^3/uL (1.0-4.8) Monocytes # (Auto) 0.7 x10^3/uL (0.0-1.1) Eosinophils # (Auto) 0.1 x10^3/uL (0.0-0.7) Basophils # (Auto) 0.1 x10^3/uL (0.0-0.2) Sodium Level 145 mmol/L (136-145) Potassium Level 3.4 mmol/L (3.5-5.1) Chloride Level 114 mmol/L (98-107) Carbon Dioxide Level 19 mmol/L (21-32) Anion Gap 12 (6-14) Blood Urea Nitrogen 14 mg/dL (8-26) Creatinine 0.9 mg/dL (0.7-1.3) Estimated GFR (Cockcroft-Gault) 85.0 BUN/Creatinine Ratio 16 (6-20) Glucose Level 92 mg/dL (70-99) Calcium Level 7.3 mg/dL (8.5-10.1) Phosphorus Level 3.7 mg/dL (2.6-4.7) Magnesium Level 2.3 mg/dL (1.8-2.4) Total Bilirubin 1.4 mg/dL (0.2-1.0) Aspartate Amino Transf (AST/SGOT) 307 U/L (15-37) Alanine Aminotransferase (ALT/SGPT) 165 U/L (16-63) Alkaline Phosphatase 63 U/L (46-116) Total Protein 5.2 g/dL (6.4-8.2) Albumin 2.5 g/dL (3.4-5.0) Albumin/Globulin Ratio 0.9 (1.0-1.7) O2 Saturation 99 % (92-99) Arterial Blood pH 7.39 (7.35-7.45) Arterial Blood pCO2 at Patient Temp 29 mmHg (35-46) Arterial Blood pO2 at Patient Temp 173 mmHg (65-108) Arterial Blood HCO3 17 mmol/L (21-28) Arterial Blood Base Excess -6 mmol/L (-3-3) FiO2 40 Test 01/25/19 08:17 Glucose (Fingerstick) 87 mg/dL (70-99) Impression . ABG NOTED CXR NO PTX NO AIRLEAK WITH CHEST TUBE D/W RN FOLLOW CARD INPUT 1. Continue current support, adjust minute ventilation to normalized pH. 2. Empiric antibiotics per ID. 3. FOLLOW CXR AND ABG 4. Follow Cardiology input. 5. Amiodarone drip. 6. DVT/GI prophylaxis. 7. Initiate tube feeding once hypothermia protocol has been completed. 8. S/P CHEST TUBE 01/24 JOE WHITE MD Jan 25, 2019 09:44
--- NOTE | 2019-01-25 10:00 | NUR ---
dr merritt notified with am abg. no orders received. pt continues in the rewarming process. discussed plan of care with , Daina.
--- NOTE | 2019-01-25 10:24 | PDOC ---
CARDIO Progress Notes Date and Time Date of Service 01/25/2019 Time of Evaluation 1000 Subjective Subjective: Other (intubated) Vitals Vitals Vital Signs Date Time Temp Pulse Resp B/P (MAP) Pulse Ox O2 Delivery O2 Flow Rate FiO2 01/25/19 09:53 100 Ventilator 01/25/19 09:30 93.9 52 24 122/70 01/25/19 01:35 15.0 Weight Weight [ ] Input and Output Intake and Output Intake and Output 01/25/19 07:00 Intake Total 4368 ml Output Total 2385 ml Balance 1983 ml Intake IV Total 4068 ml Other 300 ml Output Urine Total 1965 ml Gastric Drainage Total 400 ml Chest Tube Drainage Total 20 ml Laboratory Labs Laboratory Tests Test 01/24/19 12:15 01/24/19 13:30 01/24/19 17:42 01/24/19 21:00 White Blood Count 20.4 x10^3/uL (4.0-11.0) Red Blood Count 4.75 x10^6/uL (4.30-5.70) Hemoglobin 14.9 g/dL (13.0-17.5) Hematocrit 43.9 % (39.0-53.0) Mean Corpuscular Volume 92 fL (79-100) Mean Corpuscular Hemoglobin 32 pg (25-35) Mean Corpuscular Hemoglobin Concent 34 g/dL (31-37) Red Cell Distribution Width 13.3 % (11.5-14.5) Platelet Count 130 x10^3/uL (140-400) Prothrombin Time 16.0 SEC (11.7-14.0) Prothromb Time International Ratio 1.3 (0.8-1.1) Activated Partial Thromboplast Time 51 SEC (24-38) Sodium Level 141 mmol/L (136-145) Potassium Level 3.8 mmol/L (3.5-5.1) 3.3 mmol/L (3.5-5.1) Chloride Level 108 mmol/L (98-107) Carbon Dioxide Level 22 mmol/L (21-32) Anion Gap 11 (6-14) Blood Urea Nitrogen 15 mg/dL (8-26) Creatinine 0.7 mg/dL (0.7-1.3) Estimated GFR (Cockcroft-Gault) 113.5 Glucose Level 119 mg/dL (70-99) Calcium Level 7.6 mg/dL (8.5-10.1) Ionized Calcium 1.04 mmol/L (1.13-1.32) Phosphorus Level 2.1 mg/dL (2.6-4.7) Magnesium Level 2.5 mg/dL (1.8-2.4) O2 Saturation 98 % (92-99) Arterial Blood pH 7.41 (7.35-7.45) Arterial Blood pH (Temp corrected) 7.47 Arterial Blood pCO2 at Patient Temp 29 mmHg (35-46) Arterial Blood pCO2 (Temp correct) 25 mmHg Arterial Blood pO2 at Patient Temp 108 mmHg (65-108) Arterial Blood pO2 (Temp corrected) 88 mmHg Arterial Blood HCO3 18 mmol/L (21-28) Arterial Blood Base Excess -5 mmol/L (-3-3) FiO2 40 Glucose (Fingerstick) 81 mg/dL (70-99) Test 01/24/19 21:12 01/24/19 23:01 01/24/19 23:54 01/25/19 01:06 Glucose (Fingerstick) 82 mg/dL (70-99) 117 mg/dL (70-99) 100 mg/dL (70-99) 93 mg/dL (70-99) Test 01/25/19 02:36 01/25/19 05:30 01/25/19 05:54 01/25/19 08:00 Glucose (Fingerstick) 82 mg/dL (70-99) 79 mg/dL (70-99) White Blood Count 14.7 x10^3/uL (4.0-11.0) Red Blood Count 4.63 x10^6/uL (4.30-5.70) Hemoglobin 14.5 g/dL (13.0-17.5) Hematocrit 43.5 % (39.0-53.0) Mean Corpuscular Volume 94 fL (79-100) Mean Corpuscular Hemoglobin 31 pg (25-35) Mean Corpuscular Hemoglobin Concent 33 g/dL (31-37) Red Cell Distribution Width 13.7 % (11.5-14.5) Platelet Count 136 x10^3/uL (140-400) Neutrophils (%) (Auto) 83 % (31-73) Lymphocytes (%) (Auto) 11 % (24-48) Monocytes (%) (Auto) 5 % (0-9) Eosinophils (%) (Auto) 1 % (0-3) Basophils (%) (Auto) 1 % (0-3) Neutrophils # (Auto) 12.2 x10^3/uL (1.8-7.7) Lymphocytes # (Auto) 1.6 x10^3/uL (1.0-4.8) Monocytes # (Auto) 0.7 x10^3/uL (0.0-1.1) Eosinophils # (Auto) 0.1 x10^3/uL (0.0-0.7) Basophils # (Auto) 0.1 x10^3/uL (0.0-0.2) Sodium Level 145 mmol/L (136-145) Potassium Level 3.4 mmol/L (3.5-5.1) Chloride Level 114 mmol/L (98-107) Carbon Dioxide Level 19 mmol/L (21-32) Anion Gap 12 (6-14) Blood Urea Nitrogen 14 mg/dL (8-26) Creatinine 0.9 mg/dL (0.7-1.3) Estimated GFR (Cockcroft-Gault) 85.0 BUN/Creatinine Ratio 16 (6-20) Glucose Level 92 mg/dL (70-99) Calcium Level 7.3 mg/dL (8.5-10.1) Phosphorus Level 3.7 mg/dL (2.6-4.7) Magnesium Level 2.3 mg/dL (1.8-2.4) Total Bilirubin 1.4 mg/dL (0.2-1.0) Aspartate Amino Transf (AST/SGOT) 307 U/L (15-37) Alanine Aminotransferase (ALT/SGPT) 165 U/L (16-63) Alkaline Phosphatase 63 U/L (46-116) Total Protein 5.2 g/dL (6.4-8.2) Albumin 2.5 g/dL (3.4-5.0) Albumin/Globulin Ratio 0.9 (1.0-1.7) O2 Saturation 99 % (92-99) Arterial Blood pH 7.39 (7.35-7.45) Arterial Blood pCO2 at Patient Temp 29 mmHg (35-46) Arterial Blood pO2 at Patient Temp 173 mmHg (65-108) Arterial Blood HCO3 17 mmol/L (21-28) Arterial Blood Base Excess -6 mmol/L (-3-3) FiO2 40 Test 01/25/19 08:17 Glucose (Fingerstick) 87 mg/dL (70-99) Microbiology Micro Microbiology 01/23/19 Blood Culture - Preliminary, Resulted NO GROWTH AFTER 1 DAY Physical Exam HEENT: Neck Supple W Full Motion Chest: Symmetric LUNGS: Other (diminsihed bases) Heart: S1S2, RRR (SB) Abdomen: Other (soft) Extremities: Other (on hypothermia protocol) Neurology: other (sedated) Other Exams right groin arteriotomy site intact no swelling or erythema, neurovascular status to bilateral LE intact. Assessment Assessment 1. Vfib OOH arrest: culprit is occluded LCx S/P 3 stents. 2. CAD: new as above 3. ICM: EF 30-35% 4. Acute diastolic/systolic CHF 5. Acute respiratory failure with combination of CHF and pneumonia. intubated/vent. Pulmonary following 6. Small left apical pneumothorax/nondisplaced rib fractures: due to automatic CPR device device en route. Mild increase in PTX 7. Nausea and vomiting with possible gastroenteritis 8. Mild transaminitis: likely from hypoperfusion 9. MARIANNE: prerenal, resolved 10. Sepsis: ID following 11 Hypothyroidism: Defer to PCP new. TSH 10 12. Tobaccoism 13. Substance abuse: UDS+ marijuana 14. Sinus bradycardia: no further VTs. No pauses, will reeval after rewarming Recommendations 1. ASA/ plavix. Statin, lower dose for now with transaminitis. 2. Amiodarone drip and will convert to PO soon. Rewarming process ongoing 3. Will evaluate for ACEi/BB post rewarming 4. Lasix PRN. 5. Will eval mental state once extubated and will consider for lifevest prior to DC. ALFA G[employer] Jan 25, 2019 10:24
--- NOTE | 2019-01-25 10:32 | PDOC ---
PROGRESS NOTES Chief Complaint Chief Complaint CAD s/p stat PCI/LHC with stents to left circ (x 3 stents) s/p out of hospital cardiac arrest, V Fib with ROSC after 33 mins CPR and 5 defibrillations given Post intubation APICAL PTX s/p chest tube (01/24) Respi failure sec to above # 1 on IPPV Asthma SIRS sec to # 1, no infection REactive leukocytosis CRITCAL hypokalemia, 2,8 HYPERmagnesemia 2.7 MARIANNE post code MIld hypochloremia 101 History of Present Illness History of Present Illness intubated, sedated K 3.1 but on re warming phase NOw has a chest tube on the left because of inc size of apical ptx post code and on IPPV WBC 14 PLAn: Hold off replacing K until normothermic Chest tube mx per pulmo ON dapto, doxy, zosyn and fentanyl Insulin gtt barely running HE was trying to remove his ET on admission at ER - promising in terms of neurologic status Vitals Vitals Vital Signs Date Time Temp Pulse Resp B/P (MAP) Pulse Ox O2 Delivery O2 Flow Rate FiO2 01/25/19 09:53 100 Ventilator 01/25/19 09:30 93.9 52 24 122/70 01/25/19 01:35 15.0 Physical Exam Physical Exam GEN: Intubated/sedated HEENT: Pupils are small, minimally reactive. He has normal conjunctivae. He is orally intubated. NECK: Supple. No JVD. LUNGS: Decreased at bases. Left chest tube HEART: S1, S2. ABDOMEN: Minimally distended, + BS bowel sounds. He has a well-approximated incision in the left lower quadrant. GENITOURINARY: العلي is in place. EXTREMITIES: No clubbing or cyanosis. No gross edema. He has IVs in his right upper extremity x 3. Left upper extremity has 1. Right groin area has an art line in place. SKIN: Warm to touch without signs of rash. NEUROLOGICAL: He is intubated and sedated. General: No acute distress, Other (SEDATED) Heart: Regular rate, Normal S1, Normal S2, No murmurs, Other (IRREGULAR) Lungs: Clear Abdomen: Normal bowel sounds, Soft, No tenderness, Other (HYPOACTIVE) Extremities: No clubbing, No cyanosis, No edema, Normal pulses Skin: No breakdown, No significant lesion Labs LABS Laboratory Tests Test 01/24/19 12:15 01/24/19 13:30 01/24/19 17:42 01/24/19 21:00 White Blood Count 20.4 x10^3/uL (4.0-11.0) Red Blood Count 4.75 x10^6/uL (4.30-5.70) Hemoglobin 14.9 g/dL (13.0-17.5) Hematocrit 43.9 % (39.0-53.0) Mean Corpuscular Volume 92 fL (79-100) Mean Corpuscular Hemoglobin 32 pg (25-35) Mean Corpuscular Hemoglobin Concent 34 g/dL (31-37) Red Cell Distribution Width 13.3 % (11.5-14.5) Platelet Count 130 x10^3/uL (140-400) Prothrombin Time 16.0 SEC (11.7-14.0) Prothromb Time International Ratio 1.3 (0.8-1.1) Activated Partial Thromboplast Time 51 SEC (24-38) Sodium Level 141 mmol/L (136-145) Potassium Level 3.8 mmol/L (3.5-5.1) 3.3 mmol/L (3.5-5.1) Chloride Level 108 mmol/L (98-107) Carbon Dioxide Level 22 mmol/L (21-32) Anion Gap 11 (6-14) Blood Urea Nitrogen 15 mg/dL (8-26) Creatinine 0.7 mg/dL (0.7-1.3) Estimated GFR (Cockcroft-Gault) 113.5 Glucose Level 119 mg/dL (70-99) Calcium Level 7.6 mg/dL (8.5-10.1) Ionized Calcium 1.04 mmol/L (1.13-1.32) Phosphorus Level 2.1 mg/dL (2.6-4.7) Magnesium Level 2.5 mg/dL (1.8-2.4) O2 Saturation 98 % (92-99) Arterial Blood pH 7.41 (7.35-7.45) Arterial Blood pH (Temp corrected) 7.47 Arterial Blood pCO2 at Patient Temp 29 mmHg (35-46) Arterial Blood pCO2 (Temp correct) 25 mmHg Arterial Blood pO2 at Patient Temp 108 mmHg (65-108) Arterial Blood pO2 (Temp corrected) 88 mmHg Arterial Blood HCO3 18 mmol/L (21-28) Arterial Blood Base Excess -5 mmol/L (-3-3) FiO2 40 Glucose (Fingerstick) 81 mg/dL (70-99) Test 01/24/19 21:12 01/24/19 23:01 01/24/19 23:54 01/25/19 01:06 Glucose (Fingerstick) 82 mg/dL (70-99) 117 mg/dL (70-99) 100 mg/dL (70-99) 93 mg/dL (70-99) Test 01/25/19 02:36 01/25/19 05:30 01/25/19 05:54 01/25/19 08:00 Glucose (Fingerstick) 82 mg/dL (70-99) 79 mg/dL (70-99) White Blood Count 14.7 x10^3/uL (4.0-11.0) Red Blood Count 4.63 x10^6/uL (4.30-5.70) Hemoglobin 14.5 g/dL (13.0-17.5) Hematocrit 43.5 % (39.0-53.0) Mean Corpuscular Volume 94 fL (79-100) Mean Corpuscular Hemoglobin 31 pg (25-35) Mean Corpuscular Hemoglobin Concent 33 g/dL (31-37) Red Cell Distribution Width 13.7 % (11.5-14.5) Platelet Count 136 x10^3/uL (140-400) Neutrophils (%) (Auto) 83 % (31-73) Lymphocytes (%) (Auto) 11 % (24-48) Monocytes (%) (Auto) 5 % (0-9) Eosinophils (%) (Auto) 1 % (0-3) Basophils (%) (Auto) 1 % (0-3) Neutrophils # (Auto) 12.2 x10^3/uL (1.8-7.7) Lymphocytes # (Auto) 1.6 x10^3/uL (1.0-4.8) Monocytes # (Auto) 0.7 x10^3/uL (0.0-1.1) Eosinophils # (Auto) 0.1 x10^3/uL (0.0-0.7) Basophils # (Auto) 0.1 x10^3/uL (0.0-0.2) Sodium Level 145 mmol/L (136-145) Potassium Level 3.4 mmol/L (3.5-5.1) Chloride Level 114 mmol/L (98-107) Carbon Dioxide Level 19 mmol/L (21-32) Anion Gap 12 (6-14) Blood Urea Nitrogen 14 mg/dL (8-26) Creatinine 0.9 mg/dL (0.7-1.3) Estimated GFR (Cockcroft-Gault) 85.0 BUN/Creatinine Ratio 16 (6-20) Glucose Level 92 mg/dL (70-99) Calcium Level 7.3 mg/dL (8.5-10.1) Phosphorus Level 3.7 mg/dL (2.6-4.7) Magnesium Level 2.3 mg/dL (1.8-2.4) Total Bilirubin 1.4 mg/dL (0.2-1.0) Aspartate Amino Transf (AST/SGOT) 307 U/L (15-37) Alanine Aminotransferase (ALT/SGPT) 165 U/L (16-63) Alkaline Phosphatase 63 U/L (46-116) Total Protein 5.2 g/dL (6.4-8.2) Albumin 2.5 g/dL (3.4-5.0) Albumin/Globulin Ratio 0.9 (1.0-1.7) O2 Saturation 99 % (92-99) Arterial Blood pH 7.39 (7.35-7.45) Arterial Blood pCO2 at Patient Temp 29 mmHg (35-46) Arterial Blood pO2 at Patient Temp 173 mmHg (65-108) Arterial Blood HCO3 17 mmol/L (21-28) Arterial Blood Base Excess -6 mmol/L (-3-3) FiO2 40 Test 01/25/19 08:17 Glucose (Fingerstick) 87 mg/dL (70-99) Review of Systems Review of Systems intubated, sedated Assessment and Plan Assessmemt and Plan Problems Medical Problems: (1) Cardiorespiratory arrest Status: Acute (2) Elevated liver function tests Status: Acute (3) Elevated troponin Status: Acute (4) Hyperglycemia Status: Acute (5) Hypokalemia Status: Acute (6) Metabolic acidosis Status: Acute (7) Renal insufficiency Status: Acute (8) Ribs, multiple fractures Status: Acute (9) Severe sepsis Status: Acute (10) STEMI (ST elevation myocardial infarction) Status: Acute (11) Traumatic pneumothorax Status: Acute Comment Review of Relevant I have reviewed the following items yadi (where applicable) has been applied. Labs Laboratory Tests Test 01/23/19 15:15 01/23/19 15:20 01/23/19 15:25 01/23/19 15:26 O2 Saturation 97 % (92-99) Arterial Blood pH 7.04 (7.35-7.45) Arterial Blood pCO2 at Patient Temp 42 mmHg (35-46) Arterial Blood pO2 at Patient Temp 125 mmHg (65-108) Arterial Blood HCO3 11 mmol/L (21-28) Arterial Blood Base Excess -19 mmol/L (-3-3) FiO2 100 White Blood Count 19.5 x10^3/uL (4.0-11.0) Red Blood Count 5.25 x10^6/uL (4.30-5.70) Hemoglobin 16.7 g/dL (13.0-17.5) Hematocrit 49.9 % (39.0-53.0) Mean Corpuscular Volume 95 fL (79-100) Mean Corpuscular Hemoglobin 32 pg (25-35) Mean Corpuscular Hemoglobin Concent 33 g/dL (31-37) Red Cell Distribution Width 13.7 % (11.5-14.5) Platelet Count 164 x10^3/uL (140-400) Neutrophils (%) (Auto) 81 % (31-73) Lymphocytes (%) (Auto) 15 % (24-48) Monocytes (%) (Auto) 3 % (0-9) Eosinophils (%) (Auto) 0 % (0-3) Basophils (%) (Auto) 0 % (0-3) Neutrophils # (Auto) 15.8 x10^3/uL (1.8-7.7) Lymphocytes # (Auto) 2.9 x10^3/uL (1.0-4.8) Monocytes # (Auto) 0.6 x10^3/uL (0.0-1.1) Eosinophils # (Auto) 0.1 x10^3/uL (0.0-0.7) Basophils # (Auto) 0.1 x10^3/uL (0.0-0.2) Segmented Neutrophils % 65 % (35-66) Band Neutrophils % 11 % (0-9) Lymphocytes % 17 % (24-48) Monocytes % 5 % (0-10) Basophils % 1 % (0-3) Metamyelocytes % 1 % (0-0) Platelet Estimate Adequate (ADEQUATE) Prothrombin Time 15.3 SEC (11.7-14.0) Prothromb Time International Ratio 1.2 (0.8-1.1) D-Dimer (Keisha) 12.31 ug/mlFEU (0.00-0.50) Sodium Level 139 mmol/L (136-145) Potassium Level 2.8 mmol/L (3.5-5.1) Chloride Level 100 mmol/L (98-107) Carbon Dioxide Level 20 mmol/L (21-32) Anion Gap 19 (6-14) 17 mmol/L (6-14) Blood Urea Nitrogen 20 mg/dL (8-26) Creatinine 1.8 mg/dL (0.7-1.3) Estimated GFR (Cockcroft-Gault) 38.2 BUN/Creatinine Ratio 11 (6-20) Glucose Level 265 mg/dL (70-99) 264 mg/dL (70-99) Calcium Level 8.6 mg/dL (8.5-10.1) Magnesium Level 2.7 mg/dL (1.8-2.4) Total Bilirubin 0.8 mg/dL (0.2-1.0) Aspartate Amino Transf (AST/SGOT) 159 U/L (15-37) Alanine Aminotransferase (ALT/SGPT) 190 U/L (16-63) Alkaline Phosphatase 109 U/L (46-116) Creatine Kinase 213 U/L (39-308) Troponin I Quantitative 0.228 ng/mL (0.000-0.055) II-Wrd-G-Type Natriuretic Peptide 306 pg/mL (0-124) Total Protein 6.9 g/dL (6.4-8.2) Albumin 3.5 g/dL (3.4-5.0) Albumin/Globulin Ratio 1.0 (1.0-1.7) Lipase 115 U/L (73-393) Bedside Hemoglobin 17.3 g/dL (14-18) Bedside Hematocrit 51 % (37-52) Bedside Sodium 133 mmol/L (135-145) Bedside Potassium 6.5 mmol/L (3.5-5.0) Bedside Chloride 101 mmol/L (98-110) Bedside Total CO2 23 mmol/L (23-32) Bedside Blood Urea Nitrogen 31 mg/dL (8-26) Bedside Creatinine 1.6 mg/dL (0.5-1.4) Lactic Acid Level 9.5 mmol/L (0.4-2.0) Bedside Ionized Calcium (Clover) 0.99 mmol/L (1.13-1.32) Triglycerides Level 102 mg/dL (0-150) Cholesterol Level 148 mg/dL (0-200) LDL Cholesterol, Calculated 84 mg/dL (0-100) VLDL Cholesterol, Calculated 20 mg/dL (0-40) Non-HDL Cholesterol Calculated 104 mg/dL (0-129) HDL Cholesterol 44 mg/dL (40-60) Cholesterol/HDL Ratio 3.4 Thyroid Stimulating Hormone (TSH) 10.832 uIU/mL (0.358-3.74) Bedside Troponin I 0.09 ng/ml (<0.08) Test 01/23/19 17:00 01/23/19 20:13 01/23/19 20:15 01/23/19 20:18 O2 Saturation 99 % (92-99) 98 % (92-99) Arterial Blood pH 7.33 (7.35-7.45) 7.38 (7.35-7.45) Arterial Blood pCO2 at Patient Temp 39 mmHg (35-46) 30 mmHg (35-46) Arterial Blood pO2 at Patient Temp 441 mmHg (65-108) 136 mmHg (65-108) Arterial Blood HCO3 20 mmol/L (21-28) 17 mmol/L (21-28) Arterial Blood Base Excess -6 mmol/L (-3-3) -6 mmol/L (-3-3) FiO2 100 50 Sodium Level 139 mmol/L (136-145) Potassium Level 4.8 mmol/L (3.5-5.1) Chloride Level 103 mmol/L (98-107) Carbon Dioxide Level 19 mmol/L (21-32) Anion Gap 17 (6-14) Blood Urea Nitrogen 21 mg/dL (8-26) Creatinine 1.1 mg/dL (0.7-1.3) Estimated GFR (Cockcroft-Gault) 67.4 Glucose Level 180 mg/dL (70-99) Lactic Acid Level 3.1 mmol/L (0.4-2.0) Calcium Level 8.2 mg/dL (8.5-10.1) Magnesium Level 1.9 mg/dL (1.8-2.4) Troponin I Quantitative 11.377 ng/mL (0.000-0.055) Arterial Blood pH (Temp corrected) 7.37 Arterial Blood pCO2 (Temp correct) 31 mmHg Arterial Blood pO2 (Temp corrected) 140 mmHg Glucose (Fingerstick) 167 mg/dL (70-99) Test 01/23/19 22:00 01/23/19 23:05 01/24/19 00:00 01/24/19 00:01 Urine Collection Type Unknown Urine Color Yellow Urine Clarity Clear Urine pH 5.0 Urine Specific [place] >=1.030 Urine Protein 100 mg/dL (NEG-TRACE) Urine Glucose (UA) 100 mg/dL (NEG) Urine Ketones (Stick) 15 mg/dL (NEG) Urine Blood Large (NEG) Urine Nitrite Negative (NEG) Urine Bilirubin Negative (NEG) Urine Urobilinogen Dipstick 0.2 mg/dL (0.2 mg/dL) Urine Leukocyte Esterase Negative (NEG) Urine RBC 20-40 /HPF (0-2) Urine WBC Occ /HPF (0-4) Urine Bacteria 0 /HPF (0-FEW) Urine Hyaline Casts Occasional /HPF Urine Mucus Slight /LPF Glucose (Fingerstick) 166 mg/dL (70-99) 212 mg/dL (70-99) 190 mg/dL (70-99) Urine Opiates Screen Neg (NEG) Urine Methadone Screen Neg (NEG) Urine Barbiturates Neg (NEG) Urine Phencyclidine Screen Neg (NEG) Urine Amphetamine/Methamphetamine Neg (NEG) Urine Benzodiazepines Screen Pos (NEG) Urine Cocaine Screen Neg (NEG) Urine Cannabinoids Screen Pos (NEG) Urine Ethyl Alcohol Neg (NEG) White Blood Count 25.5 x10^3/uL (4.0-11.0) Red Blood Count 4.82 x10^6/uL (4.30-5.70) Hemoglobin 15.3 g/dL (13.0-17.5) Hematocrit 44.8 % (39.0-53.0) Mean Corpuscular Volume 93 fL (79-100) Mean Corpuscular Hemoglobin 32 pg (25-35) Mean Corpuscular Hemoglobin Concent 34 g/dL (31-37) Red Cell Distribution Width 13.2 % (11.5-14.5) Platelet Count 160 x10^3/uL (140-400) Neutrophils (%) (Auto) 95 % (31-73) Lymphocytes (%) (Auto) 2 % (24-48) Monocytes (%) (Auto) 3 % (0-9) Eosinophils (%) (Auto) 0 % (0-3) Basophils (%) (Auto) 0 % (0-3) Neutrophils # (Auto) 24.2 x10^3/uL (1.8-7.7) Lymphocytes # (Auto) 0.4 x10^3/uL (1.0-4.8) Monocytes # (Auto) 0.8 x10^3/uL (0.0-1.1) Eosinophils # (Auto) 0.0 x10^3/uL (0.0-0.7) Basophils # (Auto) 0.1 x10^3/uL (0.0-0.2) Prothrombin Time 19.1 SEC (11.7-14.0) Prothromb Time International Ratio 1.6 (0.8-1.1) Activated Partial Thromboplast Time 47 SEC (24-38) Sodium Level 139 mmol/L (136-145) Potassium Level 4.1 mmol/L (3.5-5.1) Chloride Level 106 mmol/L (98-107) Carbon Dioxide Level 20 mmol/L (21-32) Anion Gap 13 (6-14) Blood Urea Nitrogen 19 mg/dL (8-26) Creatinine 1.1 mg/dL (0.7-1.3) Estimated GFR (Cockcroft-Gault) 67.4 Glucose Level 189 mg/dL (70-99) Calcium Level 7.5 mg/dL (8.5-10.1) Phosphorus Level 3.5 mg/dL (2.6-4.7) Magnesium Level 2.2 mg/dL (1.8-2.4) Ionized Calcium 1.02 mmol/L (1.13-1.32) Test 01/24/19 01:05 01/24/19 02:16 01/24/19 03:08 01/24/19 04:09 Glucose (Fingerstick) 86 mg/dL (70-99) 101 mg/dL (70-99) 137 mg/dL (70-99) 127 mg/dL (70-99) Test 01/24/19 05:41 01/24/19 05:45 01/24/19 06:11 01/24/19 08:30 Glucose (Fingerstick) 118 mg/dL (70-99) 110 mg/dL (70-99) White Blood Count 22.6 x10^3/uL (4.0-11.0) Red Blood Count 4.76 x10^6/uL (4.30-5.70) Hemoglobin 15.1 g/dL (13.0-17.5) Hematocrit 44.5 % (39.0-53.0) Mean Corpuscular Volume 93 fL (79-100) Mean Corpuscular Hemoglobin 32 pg (25-35) Mean Corpuscular Hemoglobin Concent 34 g/dL (31-37) Red Cell Distribution Width 13.5 % (11.5-14.5) Platelet Count 138 x10^3/uL (140-400) Neutrophils (%) (Auto) 92 % (31-73) Lymphocytes (%) (Auto) 4 % (24-48) Monocytes (%) (Auto) 4 % (0-9) Eosinophils (%) (Auto) 0 % (0-3) Basophils (%) (Auto) 0 % (0-3) Neutrophils # (Auto) 20.8 x10^3/uL (1.8-7.7) Lymphocytes # (Auto) 0.9 x10^3/uL (1.0-4.8) Monocytes # (Auto) 1.0 x10^3/uL (0.0-1.1) Eosinophils # (Auto) 0.0 x10^3/uL (0.0-0.7) Basophils # (Auto) 0.0 x10^3/uL (0.0-0.2) Prothrombin Time 16.4 SEC (11.7-14.0) Prothromb Time International Ratio 1.4 (0.8-1.1) Activated Partial Thromboplast Time 39 SEC (24-38) Sodium Level 142 mmol/L (136-145) Potassium Level 3.9 mmol/L (3.5-5.1) Chloride Level 110 mmol/L (98-107) Carbon Dioxide Level 22 mmol/L (21-32) Anion Gap 10 (6-14) Blood Urea Nitrogen 16 mg/dL (8-26) Creatinine 0.9 mg/dL (0.7-1.3) Estimated GFR (Cockcroft-Gault) 85.0 Glucose Level 134 mg/dL (70-99) Calcium Level 7.6 mg/dL (8.5-10.1) Ionized Calcium 1.06 mmol/L (1.13-1.32) Phosphorus Level 2.8 mg/dL (2.6-4.7) Magnesium Level 2.1 mg/dL (1.8-2.4) Total Bilirubin 1.8 mg/dL (0.2-1.0) Direct Bilirubin 0.5 mg/dL (0.0-0.2) Aspartate Amino Transf (AST/SGOT) 294 U/L (15-37) Alanine Aminotransferase (ALT/SGPT) 181 U/L (16-63) Alkaline Phosphatase 68 U/L (46-116) Troponin I Quantitative 27.704 ng/mL (0.000-0.055) Total Protein 5.6 g/dL (6.4-8.2) Albumin 2.9 g/dL (3.4-5.0) Procalcitonin 0.40 ng/mL (0.00-0.10) Free Thyroxine 1.25 ng/dL (0.76-1.46) Mycoplasma Serology (LAB) Negative (NEGATIVE) O2 Saturation 96 % (92-99) Arterial Blood pH 7.24 (7.35-7.45) Arterial Blood pH (Temp corrected) 7.27 Arterial Blood pCO2 at Patient Temp 48 mmHg (35-46) Arterial Blood pCO2 (Temp correct) 43 mmHg Arterial Blood pO2 at Patient Temp 94 mmHg (65-108) Arterial Blood pO2 (Temp corrected) 82 mmHg Arterial Blood HCO3 20 mmol/L (21-28) Arterial Blood Base Excess -8 mmol/L (-3-3) FiO2 40 Test 01/24/19 08:36 01/24/19 12:15 01/24/19 13:30 01/24/19 17:42 Glucose (Fingerstick) 94 mg/dL (70-99) 81 mg/dL (70-99) White Blood Count 20.4 x10^3/uL (4.0-11.0) Red Blood Count 4.75 x10^6/uL (4.30-5.70) Hemoglobin 14.9 g/dL (13.0-17.5) Hematocrit 43.9 % (39.0-53.0) Mean Corpuscular Volume 92 fL (79-100) Mean Corpuscular Hemoglobin 32 pg (25-35) Mean Corpuscular Hemoglobin Concent 34 g/dL (31-37) Red Cell Distribution Width 13.3 % (11.5-14.5) Platelet Count 130 x10^3/uL (140-400) Prothrombin Time 16.0 SEC (11.7-14.0) Prothromb Time International Ratio 1.3 (0.8-1.1) Activated Partial Thromboplast Time 51 SEC (24-38) Sodium Level 141 mmol/L (136-145) Potassium Level 3.8 mmol/L (3.5-5.1) Chloride Level 108 mmol/L (98-107) Carbon Dioxide Level 22 mmol/L (21-32) Anion Gap 11 (6-14) Blood Urea Nitrogen 15 mg/dL (8-26) Creatinine 0.7 mg/dL (0.7-1.3) Estimated GFR (Cockcroft-Gault) 113.5 Glucose Level 119 mg/dL (70-99) Calcium Level 7.6 mg/dL (8.5-10.1) Ionized Calcium 1.04 mmol/L (1.13-1.32) Phosphorus Level 2.1 mg/dL (2.6-4.7) Magnesium Level 2.5 mg/dL (1.8-2.4) O2 Saturation 98 % (92-99) Arterial Blood pH 7.41 (7.35-7.45) Arterial Blood pH (Temp corrected) 7.47 Arterial Blood pCO2 at Patient Temp 29 mmHg (35-46) Arterial Blood pCO2 (Temp correct) 25 mmHg Arterial Blood pO2 at Patient Temp 108 mmHg (65-108) Arterial Blood pO2 (Temp corrected) 88 mmHg Arterial Blood HCO3 18 mmol/L (21-28) Arterial Blood Base Excess -5 mmol/L (-3-3) FiO2 40 Test 01/24/19 21:00 01/24/19 21:12 01/24/19 23:01 01/24/19 23:54 Potassium Level 3.3 mmol/L (3.5-5.1) Glucose (Fingerstick) 82 mg/dL (70-99) 117 mg/dL (70-99) 100 mg/dL (70-99) Test 01/25/19 01:06 01/25/19 02:36 01/25/19 05:30 01/25/19 05:54 Glucose (Fingerstick) 93 mg/dL (70-99) 82 mg/dL (70-99) 79 mg/dL (70-99) White Blood Count 14.7 x10^3/uL (4.0-11.0) Red Blood Count 4.63 x10^6/uL (4.30-5.70) Hemoglobin 14.5 g/dL (13.0-17.5) Hematocrit 43.5 % (39.0-53.0) Mean Corpuscular Volume 94 fL (79-100) Mean Corpuscular Hemoglobin 31 pg (25-35) Mean Corpuscular Hemoglobin Concent 33 g/dL (31-37) Red Cell Distribution Width 13.7 % (11.5-14.5) Platelet Count 136 x10^3/uL (140-400) Neutrophils (%) (Auto) 83 % (31-73) Lymphocytes (%) (Auto) 11 % (24-48) Monocytes (%) (Auto) 5 % (0-9) Eosinophils (%) (Auto) 1 % (0-3) Basophils (%) (Auto) 1 % (0-3) Neutrophils # (Auto) 12.2 x10^3/uL (1.8-7.7) Lymphocytes # (Auto) 1.6 x10^3/uL (1.0-4.8) Monocytes # (Auto) 0.7 x10^3/uL (0.0-1.1) Eosinophils # (Auto) 0.1 x10^3/uL (0.0-0.7) Basophils # (Auto) 0.1 x10^3/uL (0.0-0.2) Sodium Level 145 mmol/L (136-145) Potassium Level 3.4 mmol/L (3.5-5.1) Chloride Level 114 mmol/L (98-107) Carbon Dioxide Level 19 mmol/L (21-32) Anion Gap 12 (6-14) Blood Urea Nitrogen 14 mg/dL (8-26) Creatinine 0.9 mg/dL (0.7-1.3) Estimated GFR (Cockcroft-Gault) 85.0 BUN/Creatinine Ratio 16 (6-20) Glucose Level 92 mg/dL (70-99) Calcium Level 7.3 mg/dL (8.5-10.1) Phosphorus Level 3.7 mg/dL (2.6-4.7) Magnesium Level 2.3 mg/dL (1.8-2.4) Total Bilirubin 1.4 mg/dL (0.2-1.0) Aspartate Amino Transf (AST/SGOT) 307 U/L (15-37) Alanine Aminotransferase (ALT/SGPT) 165 U/L (16-63) Alkaline Phosphatase 63 U/L (46-116) Total Protein 5.2 g/dL (6.4-8.2) Albumin 2.5 g/dL (3.4-5.0) Albumin/Globulin Ratio 0.9 (1.0-1.7) Test 01/25/19 08:00 01/25/19 08:17 O2 Saturation 99 % (92-99) Arterial Blood pH 7.39 (7.35-7.45) Arterial Blood pCO2 at Patient Temp 29 mmHg (35-46) Arterial Blood pO2 at Patient Temp 173 mmHg (65-108) Arterial Blood HCO3 17 mmol/L (21-28) Arterial Blood Base Excess -6 mmol/L (-3-3) FiO2 40 Glucose (Fingerstick) 87 mg/dL (70-99) Laboratory Tests Test 01/24/19 12:15 01/24/19 13:30 01/24/19 17:42 01/24/19 21:00 White Blood Count 20.4 x10^3/uL (4.0-11.0) Red Blood Count 4.75 x10^6/uL (4.30-5.70) Hemoglobin 14.9 g/dL (13.0-17.5) Hematocrit 43.9 % (39.0-53.0) Mean Corpuscular Volume 92 fL (79-100) Mean Corpuscular Hemoglobin 32 pg (25-35) Mean Corpuscular Hemoglobin Concent 34 g/dL (31-37) Red Cell Distribution Width 13.3 % (11.5-14.5) Platelet Count 130 x10^3/uL (140-400) Prothrombin Time 16.0 SEC (11.7-14.0) Prothromb Time International Ratio 1.3 (0.8-1.1) Activated Partial Thromboplast Time 51 SEC (24-38) Sodium Level 141 mmol/L (136-145) Potassium Level 3.8 mmol/L (3.5-5.1) 3.3 mmol/L (3.5-5.1) Chloride Level 108 mmol/L (98-107) Carbon Dioxide Level 22 mmol/L (21-32) Anion Gap 11 (6-14) Blood Urea Nitrogen 15 mg/dL (8-26) Creatinine 0.7 mg/dL (0.7-1.3) Estimated GFR (Cockcroft-Gault) 113.5 Glucose Level 119 mg/dL (70-99) Calcium Level 7.6 mg/dL (8.5-10.1) Ionized Calcium 1.04 mmol/L (1.13-1.32) Phosphorus Level 2.1 mg/dL (2.6-4.7) Magnesium Level 2.5 mg/dL (1.8-2.4) O2 Saturation 98 % (92-99) Arterial Blood pH 7.41 (7.35-7.45) Arterial Blood pH (Temp corrected) 7.47 Arterial Blood pCO2 at Patient Temp 29 mmHg (35-46) Arterial Blood pCO2 (Temp correct) 25 mmHg Arterial Blood pO2 at Patient Temp 108 mmHg (65-108) Arterial Blood pO2 (Temp corrected) 88 mmHg Arterial Blood HCO3 18 mmol/L (21-28) Arterial Blood Base Excess -5 mmol/L (-3-3) FiO2 40 Glucose (Fingerstick) 81 mg/dL (70-99) Test 01/24/19 21:12 01/24/19 23:01 01/24/19 23:54 01/25/19 01:06 Glucose (Fingerstick) 82 mg/dL (70-99) 117 mg/dL (70-99) 100 mg/dL (70-99) 93 mg/dL (70-99) Test 01/25/19 02:36 01/25/19 05:30 01/25/19 05:54 01/25/19 08:00 Glucose (Fingerstick) 82 mg/dL (70-99) 79 mg/dL (70-99) White Blood Count 14.7 x10^3/uL (4.0-11.0) Red Blood Count 4.63 x10^6/uL (4.30-5.70) Hemoglobin 14.5 g/dL (13.0-17.5) Hematocrit 43.5 % (39.0-53.0) Mean Corpuscular Volume 94 fL (79-100) Mean Corpuscular Hemoglobin 31 pg (25-35) Mean Corpuscular Hemoglobin Concent 33 g/dL (31-37) Red Cell Distribution Width 13.7 % (11.5-14.5) Platelet Count 136 x10^3/uL (140-400) Neutrophils (%) (Auto) 83 % (31-73) Lymphocytes (%) (Auto) 11 % (24-48) Monocytes (%) (Auto) 5 % (0-9) Eosinophils (%) (Auto) 1 % (0-3) Basophils (%) (Auto) 1 % (0-3) Neutrophils # (Auto) 12.2 x10^3/uL (1.8-7.7) Lymphocytes # (Auto) 1.6 x10^3/uL (1.0-4.8) Monocytes # (Auto) 0.7 x10^3/uL (0.0-1.1) Eosinophils # (Auto) 0.1 x10^3/uL (0.0-0.7) Basophils # (Auto) 0.1 x10^3/uL (0.0-0.2) Sodium Level 145 mmol/L (136-145) Potassium Level 3.4 mmol/L (3.5-5.1) Chloride Level 114 mmol/L (98-107) Carbon Dioxide Level 19 mmol/L (21-32) Anion Gap 12 (6-14) Blood Urea Nitrogen 14 mg/dL (8-26) Creatinine 0.9 mg/dL (0.7-1.3) Estimated GFR (Cockcroft-Gault) 85.0 BUN/Creatinine Ratio 16 (6-20) Glucose Level 92 mg/dL (70-99) Calcium Level 7.3 mg/dL (8.5-10.1) Phosphorus Level 3.7 mg/dL (2.6-4.7) Magnesium Level 2.3 mg/dL (1.8-2.4) Total Bilirubin 1.4 mg/dL (0.2-1.0) Aspartate Amino Transf (AST/SGOT) 307 U/L (15-37) Alanine Aminotransferase (ALT/SGPT) 165 U/L (16-63) Alkaline Phosphatase 63 U/L (46-116) Total Protein 5.2 g/dL (6.4-8.2) Albumin 2.5 g/dL (3.4-5.0) Albumin/Globulin Ratio 0.9 (1.0-1.7) O2 Saturation 99 % (92-99) Arterial Blood pH 7.39 (7.35-7.45) Arterial Blood pCO2 at Patient Temp 29 mmHg (35-46) Arterial Blood pO2 at Patient Temp 173 mmHg (65-108) Arterial Blood HCO3 17 mmol/L (21-28) Arterial Blood Base Excess -6 mmol/L (-3-3) FiO2 40 Test 01/25/19 08:17 Glucose (Fingerstick) 87 mg/dL (70-99) Microbiology 01/23/19 Blood Culture - Preliminary, Resulted NO GROWTH AFTER 1 DAY Medications Current Medications Sodium Chloride 1,000 ml @ 1,000 mls/hr Q1H IV Last administered on 01/23/19at 17:23; Start 01/23/19 at 15:13; Stop 01/23/19 at 16:12; Status DC Sodium Bicarbonate (Sodium Bicarb Adult 8.4% Syr) 100 meq 1X ONCE IV Last administered on 01/23/19at 17:23; Start 01/23/19 at 15:30; Stop 01/23/19 at 15:59; Status DC Midazolam HCl (Versed) 5 mg STK-MED ONCE .ROUTE ; Start 01/23/19 at 15:25; Stop 01/23/19 at 15:25; Status DC Propofol 50 ml @ As Directed STK-MED ONCE IV ; Start 01/23/19 at 15:25; Stop 01/23/19 at 15:25; Status DC Calcium Gluconate (Calcium Gluconate) 1,000 mg 1X ONCE IVP Last administered on 01/23/19at 16:12; Start 01/23/19 at 16:00; Stop 01/23/19 at 16:01; Status DC Dextrose (Dextrose 50%-Water Syringe) 25 gm 1X ONCE IV ; Start 01/23/19 at 15:45; Stop 01/23/19 at 15:53; Status DC Insulin Human Regular (HumuLIN R VIAL) 10 unit 1X ONCE IV ; Start 01/23/19 at 15:45; Stop 01/23/19 at 15:53; Status DC Iohexol (Omnipaque 350 Mg/ml) 90 ml 1X ONCE IV Last administered on 01/23/19at 16:08; Start 01/23/19 at 15:45; Stop 01/23/19 at 16:00; Status DC Amiodarone HCl 900 mg/Dextrose 518 ml @ 0 mls/hr CONT PRN IV SEE I/O RECORD Last administered on 01/23/19at 17:06; Start 01/23/19 at 16:00; Stop 01/23/19 at 17:06; Status DC Piperacillin Sod/ Tazobactam Sod 3.375 gm/Sodium Chloride 50 ml @ 100 mls/hr 1X ONCE IV Last administered on 01/23/19at 22:19; Start 01/23/19 at 16:00; Stop 01/23/19 at 16:29; Status DC Vancomycin HCl 250 ml @ 250 mls/hr 1X ONCE IV ; Start 01/23/19 at 16:00; Stop 01/23/19 at 16:24; Status DC Fentanyl Citrate (Fentanyl 2ml Vial) 100 mcg 1X ONCE IV ; Start 01/23/19 at 16:15; Stop 01/23/19 at 16:24; Status DC Midazolam HCl (Versed) 2 mg 1X ONCE IV ; Start 01/23/19 at 16:15; Stop 01/23/19 at 16:24; Status DC Magnesium Sulfate/ Dextrose 100 ml @ 100 mls/hr 1X ONCE IV ; Start 01/23/19 at 16:15; Stop 01/23/19 at 17:14; Status DC Buspirone HCl (Buspar) 30 mg Q8H NG Last administered on 01/25/19at 08:47; Start 01/23/19 at 17:00; Stop 01/25/19 at 09:01; Status DC Acetaminophen (Tylenol) 650 mg Q4H NG Last administered on 01/25/19at 08:41; Start 01/23/19 at 16:15 Artificial Tears (Artificial Tears) 1 drop Q6HRS OU Last administered on 01/25/19at 05:44; Start 01/23/19 at 18:00 Artificial Tears (Artificial Tears) 1 drop PRN Q15MIN PRN OU DRY EYE; Start 01/23/19 at 16:15 Heparin Sodium (Porcine) (Heparin Sodium) 5,000 unit BID SQ ; Start 01/23/19 at 21:00; Stop 01/23/19 at 16:53; Status DC Pantoprazole Sodium (PROTONIX VIAL for IV PUSH) 40 mg DAILY IVP ; Start 01/24/19 at 09:00; Stop 01/23/19 at 20:27; Status DC Fentanyl Citrate 30 ml @ 0 mls/hr CONT PRN IV PER PROTOCOL.; Start 01/23/19 at 16:15; Stop 01/23/19 at 18:01; Status DC Propofol 100 ml @ 0 mls/hr CONT PRN IV PER PROTOCOL.; Start 01/23/19 at 16:15; Stop 01/23/19 at 20:27; Status DC Midazolam HCl 100 ml @ 0 mls/hr CONT PRN IV PER PROTOCOL. Last administered on 01/23/19at 16:50; Start 01/23/19 at 16:15; Stop 01/23/19 at 20:26; Status DC Vecuronium Vista (Norcuron Bolus) 7 mg PRN Q1HR PRN IV SHIVERING; Start at 16:15; Stop 01/23/19 at 20:28; Status DC Pantoprazole Sodium (PROTONIX VIAL for IV PUSH) 40 mg DAILYAC IVP ; Start at 07:30; Stop 01/23/19 at 16:25; Status DC Pantoprazole Sodium (PROTONIX VIAL for IV PUSH) 40 mg 1X ONCE IVP Last admi nistered on 01/23/19at 23:43; Start 01/23/19 at 17:00; Stop 01/23/19 at 17:01; Status DC Enoxaparin Sodium (Lovenox 40mg Syringe) 40 mg Q24H SQ ; Start 01/23/19 at 21:00; Stop 01/23/19 at 23:59; Status DC Sodium Chloride 1,000 ml @ 150 mls/hr Q6H40M IV Last administered on 01/24/19at 04:43; Start 01/23/19 at 16:11; Stop 01/24/19 at 11:40; Status DC Potassium Chloride/Water 100 ml @ 100 mls/hr Q1H IV Last administered on 01/23/19at 19:06; Start 01/23/19 at 17:00; Stop 01/23/19 at 20:59; Status DC Potassium Chloride/Water 100 ml @ 100 mls/hr Q1H IV ; Start 01/23/19 at 22:00; Stop 01/23/19 at 23:59; Status DC Vancomycin HCl 1.75 gm/Sodium Chloride 500 ml @ 250 mls/hr 1X ONCE IV Last administered on 01/23/19at 23:42; Start 01/23/19 at 18:00; Stop 01/23/19 at 19:59; Status DC Aspirin (Aspirin Rectal Supp) 300 mg 1X ONCE NM Last administered on 01/23/19at 20:27; Start 01/23/19 at 17:00; Stop 01/23/19 at 17:01; Status DC Lidocaine HCl (Lidocaine 1% 20ml Vial) 20 ml STK-MED ONCE .ROUTE ; Start 01/23/19 at 16:37; Stop 01/23/19 at 16:37; Status DC Heparin Sodium/ Sodium Chloride 1,000 ml @ As Directed STK-MED ONCE .ROUTE ; Start 01/23/19 at 16:37; Stop 01/23/19 at 16:38; Status DC Heparin Sodium/ Dextrose 500 ml @ 0 mls/hr CONT PRN IV SEE I/O RECORD; Start 01/23/19 at 17:00; Stop 01/23/19 at 23:27; Status DC Midazolam HCl (Versed) 5 mg STK-MED ONCE .ROUTE ; Start 01/23/19 at 17:00; Stop 01/23/19 at 17:00; Status DC Sodium Chloride 1,000 ml @ 1,000 mls/hr 1X ONCE IV Last administered on 01/23/19at 18:58; Start 01/23/19 at 17:30; Stop 01/23/19 at 18:29; Status DC Propofol 50 ml @ 2.1 mls/hr 1X STAT IV Last administered on 01/23/19at 18:51; Start 01/23/19 at 17:17; Stop 01/23/19 at 20:27; Status DC Midazolam HCl (Versed) 5 mg 1X ONCE IV Last administered on 01/23/19at 18:18; Start 01/23/19 at 17:30; Stop 01/23/19 at 17:31; Status DC Fentanyl Citrate 30 ml @ 0 mls/hr CONT PRN PRN IV PER PROTOCOL; Start 01/23/19 at 17:45; Status Cancel Naloxone HCl (Narcan) 0.4 mg PRN Q2MIN PRN IV SEE INSTRUCTIONS; Start 01/23/19 at 17:45 Sodium Chloride 1,000 ml @ 25 mls/hr Q24H IV Last administered on 01/24/19at 16:11; Start 01/23/19 at 17:33 Midazolam HCl (Versed) 5 mg 1X ONCE IV Last administered on 01/23/19at 19:02; Start 01/23/19 at 18:15; Stop 01/23/19 at 18:16; Status DC Amiodarone HCl (Cordarone) 150 mg STK-MED ONCE .ROUTE ; Start 01/23/19 at 18:11; Stop 01/23/19 at 18:12; Status DC Iodixanol (Visipaque 320) 100 ml STK-MED ONCE .ROUTE ; Start 01/23/19 at 18:19; Stop 01/23/19 at 18:19; Status DC Bivalirudin (Angiomax) 250 mg STK-MED ONCE IV ; Start 01/23/19 at 18:20; Stop 01/23/19 at 18:20; Status DC Nitroglycerin (Nitroglycerin) 200 mcg 1X ONCE IART Last administered on 01/23/19at 19:10; Start 01/23/19 at 18:45; Stop 01/23/19 at 18:56; Status DC Heparin Sodium/ Sodium Chloride (HEPARIN for ARTERIAL LINE FLUSH) 1,000 unit 1X ONCE IART Last administered on 01/23/19at 19:10; Start 01/23/19 at 18:45; Stop 01/23/19 at 18:56; Status DC Heparin Sodium/ Sodium Chloride (HEPARIN for ARTERIAL LINE FLUSH) 1,000 unit 1X ONCE IART Last administered on 01/23/19at 19:10; Start 01/23/19 at 18:45; Stop 01/23/19 at 18:56; Status DC Iodixanol (Visipaque 320) 100 ml 1X ONCE IART Last administered on 01/23/19 19:10; Start 01/23/19 at 18:45; Stop 01/23/19 at 18:56; Status DC Bivalirudin (Angiomax) 250 mg 1X ONCE IV Last administered on 01/23/19at 19:10; Start 01/23/19 at 18:45; Stop 01/23/19 at 18:56; Status DC Lidocaine HCl (Lidocaine 1% 20ml Vial) 10 ml 1X ONCE INJ Last administered on 01/23/19 19:10; Start 01/23/19 at 18:45; Stop 01/23/19 at 18:56; Status DC Amiodarone HCl 150 mg/Dextrose 103 ml @ 0 mls/hr 1X ONCE IV Last administered on 01/23/19 19:10; Start 01/23/19 at 19:00; Stop 01/23/19 at 19:01; Status DC Info (CONTRAST GIVEN -- Rx MONITORING) 1 each PRN DAILY PRN MC SEE COMMENTS; Start 01/23/19 at 19:00; Stop 01/25/19 at 18:59 Heparin Sodium/ Sodium Chloride 500 ml @ As Directed STK-MED ONCE .ROUTE ; Start 01/23/19 at 19:02; Stop 01/23/19 at 19:03; Status DC Sodium Chloride (Normal Saline Flush) 3 ml QSHIFT PRN IV AFTER MEDS AND BLOOD DRAWS; Start 01/23/19 at 19:30 Sodium Chloride 1,000 ml @ 75 mls/hr [id number] IV Last administered on 01/23/19at 20:27; Start 01/23/19 at 19:17; Stop 01/24/19 at 03:16; Status DC Aspirin (Ecotrin) 325 mg DAILYWBKFT PO Last administered on 01/25/19 08:41; Start 01/24/19 at 08:00 Clopidogrel Bisulfate (Plavix) 75 mg DAILYWBKFT PO Last administered on 01/25/19at 08:41; Start 01/24/19 at 08:00 Acetaminophen (Tylenol) 650 mg PRN Q6HRS PRN PO MILD PAIN / TEMP; Start 01/23 at 19:30 Fentanyl Citrate (Fentanyl 2ml Vial) 50 mcg PRN Q1HR PRN IV MODERATE OR SEVERE PAIN; Start 01/23/19 at 19:30 Nitroglycerin (Nitrostat) 0.4 mg PRN Q5MIN PRN SL CHEST PAIN; Start 01/23/19 at 19:30 Amiodarone HCl 150 mg/Dextrose 103 ml @ 600 mls/hr 1X PRN PRN IV FOR VENTRICULAR TACHYCARDIA; Start 01/23/19 at 19:30 Lidocaine HCl (Lidocaine HCl 2% Abboject) 100 mg 1X PRN PRN IV FOR VENTRICULAR TACHYCARDIA; Start 01/23/19 at 19:30 Atropine Sulfate (ATROPINE 0.5mg SYRINGE) 0.5 mg PRN 1X PRN IV BRADYCARDIA; Start 01/23/19 at 19:30 Fentanyl Citrate (Fentanyl 2ml Vial) 100 mcg 1X ONCE IV Last administered on 01/23/19at 20:27; Start 01/23/19 at 19:45; Stop 01/23/19 at 20:25; Status DC Midazolam HCl (Versed) 2 mg 1X ONCE IV ; Start 01/23/19 at 19:45; Stop 01/23/19 at 20:25; Status DC Magnesium Sulfate/ Dextrose 100 ml @ 100 mls/hr 1X ONCE IV Last administered on 01/23/19at 20:46; Start 01/23/19 at 19:45; Stop 01/23/19 at 20:44; Status DC Heparin Sodium (Porcine) (Heparin Sodium) 5,000 unit BID SQ Last administered on 01/25/19at 08:40; Start 01/23/19 at 21:00 Pantoprazole Sodium (PROTONIX VIAL for IV PUSH) 40 mg DAILY IVP Last administered on 01/25/19at 08:40; Start 01/24/19 at 09:00 Fentanyl Citrate 30 ml @ 0 mls/hr CONT PRN IV PER PROTOCOL. Last administered on 01/25/19at 08:40; Start 01/23/19 at 19:45 Propofol 100 ml @ 0 mls/hr CONT PRN IV PER PROTOCOL.; Start 01/23/19 at 19:45 Midazolam HCl 100 ml @ 0 mls/hr CONT PRN IV PER PROTOCOL. Last administered on 01/25/19at 00:37; Start 01/23/19 at 19:45 Vecuronium Vista (Norcuron Bolus) 7 mg PRN Q1HR PRN IV SHIVERING Last administered on 01/24/19at 21:19; Start 01/23/19 at 19:45 Norepinephrine Bitartrate 250 ml @ 13.608 mls/ hr CONT PRN IV SEE I/O RECORD; Start 01/23/19 at 20:45 Sodium Chloride 500 ml @ 500 mls/hr 1X ONCE IV Last administered on 01/23/19at 20:57; Start 01/23/19 at 20:45; Stop 01/23/19 at 21:44; Status DC Daptomycin 440 mg/ Sodium Chloride 50 ml @ 100 mls/hr Q24H IV Last administered on 01/24/19at 22:45; Start 01/23/19 at 23:00 Linezolid/Dextrose 300 ml @ 300 mls/hr Q12HR IV Last administered on 01/25/19at 08:47; Start 01/24/19 at 09:00 Doxycycline Hyclate 100 mg/ Dextrose 100 ml @ 50 mls/hr Q12HR IV Last administered on 01/25/19at 08:47; Start 01/24/19 at 09:00 Doxycycline Hyclate 100 mg/ Dextrose 100 ml @ 50 mls/hr 1X ONCE IV Last administered on 01/23/19at 23:42; Start 01/23/19 at 23:30; Stop 01/24/19 at 01:29; Status DC Linezolid/Dextrose 300 ml @ 300 mls/hr ONCE ONCE IV Last administered on 01/23/19at 23:42; Start 01/23/19 at 23:00; Stop 01/23/19 at 23:59; Status DC Insulin Human Regular 150 unit/ Sodium Chloride 151.5 ml @ 0 mls/hr CONT PRN IV SEE I/O RECORD; Start 01/23/19 at 23:15 Magnesium Sulfate 50 ml @ 25 mls/hr 1X ONCE IV Last administered on 01/24/19at 08:29; Start 01/24/19 at 06:45; Stop 01/24/19 at 08:44; Status DC Piperacillin Sod/ Tazobactam Sod 3.375 gm/Sodium Chloride 50 ml @ 100 mls/hr Q6HRS IV Last administered on 01/25/19at 05:44; Start 01/24/19 at 08:00 Atorvastatin Calcium (Lipitor) 20 mg QHS PO Last administered on 01/24/19at 21:19; Start 01/24/19 at 21:00 Sodium Chloride 1,000 ml @ 100 mls/hr Q10H IV Last administered on 01/24/19at 22:45; Start 01/24/19 at 11:45 Amiodarone HCl 900 mg/Dextrose 518 ml @ 17 mls/hr 30H29M IV ; Start 01/24/19 at 15:00; Status Cancel Magnesium Sulfate/ Dextrose 100 ml @ 100 mls/hr 1X ONCE IV Last administered on 01/24/19at 13:52; Start 01/24/19 at 13:30; Stop 01/24/19 at 14:29; Status DC Lidocaine/Sodium Bicarbonate (Buffered Lidocaine 1%) 3 ml Pie Digital-MED ONCE .ROUTE ; Start 01/24/19 at 15:03; Stop 01/24/19 at 15:04; Status DC Amiodarone HCl 900 mg/Dextrose 518 ml @ 33 mls/hr CONT PRN IV SEE I/O RECORD Last administered on 01/24/19at 16:09; Start 01/24/19 at 16:30; Stop 01/24/19 at 16:30; Status DC Potassium Chloride/Water 100 ml @ 100 mls/hr Q1H IV ; Start 01/25/19 at 09:00; Stop 01/25/19 at 10:06; Status DC Vitals/I & O Vital Sign - Last 24 Hours 01/24/19 01/24/19 01/24/19 01/24/19 11:00 11:43 12:00 12:00 Temp 89.1 91.2 Pulse 47 52 Resp 24 24 B/P (MAP) 152/88 127/79 Pulse Ox 100 100 100 O2 Delivery Ventilator Ventilator Mechanical Ventilator Ventilator 01/24/19 01/24/19 01/24/19 01/24/19 12:55 13:00 13:51 14:00 Temp 92.2 92.7 Pulse 52 50 Resp 24 24 24 B/P (MAP) 97/74 94/57 Pulse Ox 100 100 100 100 O2 Delivery Ventilator Ventilator Ventilator 01/24/19 01/24/19 01/24/19 01/24/19 15:00 15:50 16:00 16:00 Temp 92.8 92.8 Pulse 51 65 Resp 24 24 B/P (MAP) 105/54 105/54 Pulse Ox 100 100 100 O2 Delivery Ventilator Ventilator Mechanical Ventilator Ventilator 01/24/19 01/24/19 01/24/19 01/24/19 17:00 17:37 18:00 18:17 Temp 92.7 91.6 Pulse 47 43 Resp 24 24 24 B/P (MAP) 134/75 148/81 Pulse Ox 100 100 100 100 O2 Delivery Ventilator Ventilator Ventilator Ventilator 01/24/19 01/24/19 01/24/19 01/24/19 18:41 19:00 19:57 20:00 Temp 90.5 90.1 Pulse 47 48 Resp 24 24 24 B/P (MAP) 137/77 156/86 Pulse Ox 100 100 100 100 O2 Delivery Ventilator Ventilator Ventilator 01/24/19 01/24/19 01/24/19 01/24/19 20:00 21:00 21:33 22:00 Temp 91.8 91.8 Pulse 48 48 Resp 24 B/P (MAP) 156/82 148/80 Pulse Ox 100 100 100 O2 Delivery Mechanical Ventilator Ventilator Ventilator Ventilator 01/24/19 01/24/19 01/24/19 01/24/19 22:30 23:30 23:43 23:59 Temp 91.8 91.2 Pulse 46 44 Resp 24 B/P (MAP) 133/82 144/81 Pulse Ox 100 100 100 O2 Delivery Ventilator Ventilator Ventilator Mechanical Ventilator 01/25/19 01/25/19 01/25/19 01/25/19 00:00 00:30 00:37 01:00 Temp 91.0 91.0 90.9 Pulse 44 42 42 Resp 24 24 24 B/P (MAP) 136/78 122/72 114/68 Pulse Ox 100 100 100 100 O2 Delivery Ventilator Ventilator Ventilator Ventilator O2 Flow Rate 15.0 01/25/19 01/25/19 01/25/19 01/25/19 01:30 01:35 02:00 02:30 Temp 91.2 91.2 91.2 Pulse 44 45 45 Resp 24 24 24 B/P (MAP) 112/67 116/69 116/70 Pulse Ox 100 100 100 100 O2 Delivery Ventilator Ventilator Ventilator Ventilator O2 Flow Rate 15.0 01/25/19 01/25/19 01/25/19 01/25/19 03:00 03:09 03:30 04:00 Temp 91.4 91.8 Pulse 45 50 Resp 24 24 B/P (MAP) 97/57 128/72 Pulse Ox 100 100 100 O2 Delivery Ventilator Ventilator Ventilator Mechanical Ventilator 01/25/19 01/25/19 01/25/19 01/25/19 04:00 04:30 05:00 05:30 Temp 92.1 92.6 92.8 93.6 Pulse 52 56 66 62 Resp 24 24 24 28 B/P (MAP) 125/68 132/72 142/74 126/62 Pulse Ox 100 100 100 100 O2 Delivery Ventilator Ventilator Ventilator Ventilator 01/25/19 01/25/19 01/25/19 01/25/19 05:35 06:00 06:30 07:00 Temp 94.2 94.5 Pulse 56 51 Resp 24 B/P (MAP) 102/54 95/52 93/55 (68) Pulse Ox 100 100 100 O2 Delivery Ventilator Ventilator Ventilator 01/25/19 01/25/19 01/25/19 01/25/19 07:00 08:00 08:00 08:10 Temp 94.3 93.7 Pulse 51 48 Resp 24 B/P (MAP) 91/50 100/59 Pulse Ox 100 100 100 O2 Delivery Ventilator Mechanical Ventilator Ventilator Ventilator 01/25/19 01/25/19 01/25/19 01/25/19 08:40 09:00 09:20 09:30 Temp 93.5 93.5 93.9 Pulse 50 52 52 Resp 24 24 24 24 B/P (MAP) 117/63 122/70 122/70 Pulse Ox 100 100 100 100 O2 Delivery Ventilator Ventilator Ventilator 01/25/19 09:53 Pulse Ox 100 O2 Delivery Ventilator Intake and Output 01/24/19 01/24/19 01/25/19 14:59 22:59 06:59 Intake Total 950 ml 2701 ml 717 ml Output Total 735 ml 1180 ml 635 ml Balance 215 ml 1521 ml 82 ml DERECK CAREY MD Jan 25, 2019 10:31
--- NOTE | 2019-01-25 10:50 | RAD ---
CHEST AP ONLY Clinical indications: Pneumothorax. Follow-up study. COMPARISON: January 24, 2019. Findings: Left-sided chest tube has been placed in the interim and the tip is seen within the upper medial aspect. The previously seen left-sided pneumothorax has been evacuated. No new lung infiltrate or pulmonary edema or pleural effusion is seen. ET tube and NG tube remain in place. Heart size and mediastinum are stable. IMPRESSION: Evacuation of left-sided pneumothorax after placement of left-sided chest tube. Electronically signed by: Jimmy March MD (01/25/2019 10:47 AM) [id number]
[2019-01-25] MEDS: IV NORMAL SALINE 1000ML BAG 1,000 ML IV SCH ×3 (11:11→20:58)
--- NOTE | 2019-01-25 12:03 | PDOC ---
Renal-Progress Notes Subjective Notes Notes INTUBATED History of Present Illness Hx of present illness STABLE Vitals Vitals Vital Signs Date Time Temp Pulse Resp B/P (MAP) Pulse Ox O2 Delivery O2 Flow Rate FiO2 01/25/19 11:58 100 Ventilator 01/25/19 11:00 93.8 50 24 114/65 01/25/19 01:35 15.0 Weight Weight [ ] I.O. Intake and Output Intake and Output 01/25/19 07:00 Intake Total 4368 ml Output Total 2385 ml Balance 1983 ml Intake IV Total 4068 ml Other 300 ml Output Urine Total 1965 ml Gastric Drainage Total 400 ml Chest Tube Drainage Total 20 ml Labs Labs Laboratory Tests Test 01/24/19 12:15 01/24/19 13:30 01/24/19 17:42 01/24/19 21:00 White Blood Count 20.4 x10^3/uL (4.0-11.0) Red Blood Count 4.75 x10^6/uL (4.30-5.70) Hemoglobin 14.9 g/dL (13.0-17.5) Hematocrit 43.9 % (39.0-53.0) Mean Corpuscular Volume 92 fL (79-100) Mean Corpuscular Hemoglobin 32 pg (25-35) Mean Corpuscular Hemoglobin Concent 34 g/dL (31-37) Red Cell Distribution Width 13.3 % (11.5-14.5) Platelet Count 130 x10^3/uL (140-400) Prothrombin Time 16.0 SEC (11.7-14.0) Prothromb Time International Ratio 1.3 (0.8-1.1) Activated Partial Thromboplast Time 51 SEC (24-38) Sodium Level 141 mmol/L (136-145) Potassium Level 3.8 mmol/L (3.5-5.1) 3.3 mmol/L (3.5-5.1) Chloride Level 108 mmol/L (98-107) Carbon Dioxide Level 22 mmol/L (21-32) Anion Gap 11 (6-14) Blood Urea Nitrogen 15 mg/dL (8-26) Creatinine 0.7 mg/dL (0.7-1.3) Estimated GFR (Cockcroft-Gault) 113.5 Glucose Level 119 mg/dL (70-99) Calcium Level 7.6 mg/dL (8.5-10.1) Ionized Calcium 1.04 mmol/L (1.13-1.32) Phosphorus Level 2.1 mg/dL (2.6-4.7) Magnesium Level 2.5 mg/dL (1.8-2.4) O2 Saturation 98 % (92-99) Arterial Blood pH 7.41 (7.35-7.45) Arterial Blood pH (Temp corrected) 7.47 Arterial Blood pCO2 at Patient Temp 29 mmHg (35-46) Arterial Blood pCO2 (Temp correct) 25 mmHg Arterial Blood pO2 at Patient Temp 108 mmHg (65-108) Arterial Blood pO2 (Temp corrected) 88 mmHg Arterial Blood HCO3 18 mmol/L (21-28) Arterial Blood Base Excess -5 mmol/L (-3-3) FiO2 40 Glucose (Fingerstick) 81 mg/dL (70-99) Test 01/24/19 21:12 01/24/19 23:01 01/24/19 23:54 01/25/19 01:06 Glucose (Fingerstick) 82 mg/dL (70-99) 117 mg/dL (70-99) 100 mg/dL (70-99) 93 mg/dL (70-99) Test 01/25/19 02:36 01/25/19 05:30 01/25/19 05:54 01/25/19 08:00 Glucose (Fingerstick) 82 mg/dL (70-99) 79 mg/dL (70-99) White Blood Count 14.7 x10^3/uL (4.0-11.0) Red Blood Count 4.63 x10^6/uL (4.30-5.70) Hemoglobin 14.5 g/dL (13.0-17.5) Hematocrit 43.5 % (39.0-53.0) Mean Corpuscular Volume 94 fL (79-100) Mean Corpuscular Hemoglobin 31 pg (25-35) Mean Corpuscular Hemoglobin Concent 33 g/dL (31-37) Red Cell Distribution Width 13.7 % (11.5-14.5) Platelet Count 136 x10^3/uL (140-400) Neutrophils (%) (Auto) 83 % (31-73) Lymphocytes (%) (Auto) 11 % (24-48) Monocytes (%) (Auto) 5 % (0-9) Eosinophils (%) (Auto) 1 % (0-3) Basophils (%) (Auto) 1 % (0-3) Neutrophils # (Auto) 12.2 x10^3/uL (1.8-7.7) Lymphocytes # (Auto) 1.6 x10^3/uL (1.0-4.8) Monocytes # (Auto) 0.7 x10^3/uL (0.0-1.1) Eosinophils # (Auto) 0.1 x10^3/uL (0.0-0.7) Basophils # (Auto) 0.1 x10^3/uL (0.0-0.2) Sodium Level 145 mmol/L (136-145) Potassium Level 3.4 mmol/L (3.5-5.1) Chloride Level 114 mmol/L (98-107) Carbon Dioxide Level 19 mmol/L (21-32) Anion Gap 12 (6-14) Blood Urea Nitrogen 14 mg/dL (8-26) Creatinine 0.9 mg/dL (0.7-1.3) Estimated GFR (Cockcroft-Gault) 85.0 BUN/Creatinine Ratio 16 (6-20) Glucose Level 92 mg/dL (70-99) Calcium Level 7.3 mg/dL (8.5-10.1) Phosphorus Level 3.7 mg/dL (2.6-4.7) Magnesium Level 2.3 mg/dL (1.8-2.4) Total Bilirubin 1.4 mg/dL (0.2-1.0) Aspartate Amino Transf (AST/SGOT) 307 U/L (15-37) Alanine Aminotransferase (ALT/SGPT) 165 U/L (16-63) Alkaline Phosphatase 63 U/L (46-116) Total Protein 5.2 g/dL (6.4-8.2) Albumin 2.5 g/dL (3.4-5.0) Albumin/Globulin Ratio 0.9 (1.0-1.7) O2 Saturation 99 % (92-99) Arterial Blood pH 7.39 (7.35-7.45) Arterial Blood pCO2 at Patient Temp 29 mmHg (35-46) Arterial Blood pO2 at Patient Temp 173 mmHg (65-108) Arterial Blood HCO3 17 mmol/L (21-28) Arterial Blood Base Excess -6 mmol/L (-3-3) FiO2 40 Test 01/25/19 08:17 Glucose (Fingerstick) 87 mg/dL (70-99) Micro Micro Microbiology 01/23/19 Blood Culture - Preliminary, Resulted NO GROWTH AFTER 1 DAY Physical Exam General Appearance: other (SEDATE) Skin: warm Heart: S1S2 Abdomen: soft, bowel sounds present Genitourinary: bladder flat Extremities: pulses present Neurology: other (sedated) Assessment Assessment IMP S/P CODE BLUE LACTIC ACIDOSIS-BETTER ACUTE RESP ALKALOSIS HYPOKALEMIA MARIANNE WITH NO CKD HX-NEARLY RESOLVED ACUTE HYPOXIC RESP FAILURE CAD WITH ARRHYTHMIA S/P PTCA AND STENT LEUCOCYTOSIS-REACTIVE VS INFECTION NEW DX OF DM II ABNORMAL LFT'S-PROB SHOCK LIVER PLAN ANTIBIOTICS HYDRATION CORRECT ELECTROLYTES PRESSORS NEEDED EXPECT RENAL RECOVERY IF HEMODYNAMICALLY STABLE HYPOTHERMIA PROTOCOL WILL FOLLOW CURT CHAPMAN MD Jan 25, 2019 12:03
--- NOTE | 2019-01-25 15:30 | NUR ---
turned down sedation, placed socks on feet, and applied another blanket. held tylenol po. attempting to get pt to start warming. arms/legs and head warm to the touch. core temperature having difficulty rising above 94.2 degree F.
[2019-01-25] MEDS: AMIODARONE 450 MG in IV DEXTROSE 5% 250 ML IV PRN (16:39)
--- NOTE | 2019-01-25 16:46 | NUR ---
bp and heart rate starting to increase. pt attempted to open eyes spontaneously. core temperature is now 95.2 degrees F. continue to support pt.
--- NOTE | 2019-01-25 17:23 | PDOC ---
PROGRESS NOTES Assessment Assessment Anoxia/hypoxia/metabolic encephalopathy. S/P cardiac arrest, downtime estimated on and off for 33 minutes. CAD with LCX occlusion, s/p stents placement. Respiratory failure. Hypokalemia, K+ 2.8 CHF, EF 30-35%. Lactic acidosis. Leukocytosis. Pulmonary infiltrate. Hepatic injury. Renal failure. Hematuria. Rib and sternum fracture. RECOMMENDATIONS/PLAN: Life support in ICU. HCT performed w/o ICH or SAH. Received hypothermia. EEG after warming up. Treat medical and cardiac diseases. Discussed in detail with his at bedside in ICU on 01/25/19. HISTORY OF THE PRESENT ILLNESS: This is a 63-year-old male who was brought into the ER of [facility] via EMS because of cardiorespiratory arrest. Per ER the patient's stated that he had a syncopal episode at work on 01/23/19 and he was brought to home by his coworker. He then had vomiting around 14:29 pm with agonal respiration so his called 911. EMS arrived at the scene at 14:35 pm and the patient was found to have VF. CPR was carried out and patient received shocks and was intubated. On arrival to ER about 15:08 pm, patient had a spontaneous pulse and auto-chest compression was stopped. HCT ruled out intracranial hemorrhage, hypothermia was administrated in ICU. Patient's states he had left inguinal hernia surgery 2 weeks ago and has history of asthma without other medical problem. On 01/25/19: On vent unresponsive. PAST MEDICAL HISTORY Cardiovascular: HTN? Pulmonary: Asthma. Smoking. CENTRAL NERVOUS SYSTEM: No pertinent history. GI: Other (inguinal hernia) Heme/Onc: No pertinent hx Hepatobiliary: No pertinent hx Psych: No pertinent hx Musculoskeletal: Osteoarthritis Rheumatologic: No pertinent hx Infectious disease: No pertinent hx ENT: No pertinent hx Renal/: No pertinent hx Endocrine: No pertinent hx Dermatology: No pertinent hx PAST SURGICAL HISTORY Hernia Repair (left inguinal) FAMILY HISTORY Coronary Artery Disease (father) SOCIAL HISTORY Smoke: <1 pack per day ALCOHOL: none Drugs: None Lives: with Family ALLERGIES No Known Drug Allergies (Unverified , 01/23/19) MEDICATIONS: Refer to [facility] REVIEW OF SYSTEMS: Constitutional: No malnutrition, weight loss, cachexia. Head: No recent traumatic brain or head injury. Skin: No edema, or rash. Ear: No infection, tinnitus. Eyes: No vision loss or color blindness. Nose: No bleeding or purulent discharges. Hearing: No hearing decrease. Neck: No injury. Cardiac: No VT, arrhythmia,claudication. Pulmonary: Smoking.. GI: No GI ulcer, GI bleeding. Urinary/genital: No dysuria, incontinence, urinary retention. Endocrinologic: No cousin face, craniofacial dysmorphism, polydactyly. Skeletomuscular: No muscular atrophy, deformity. Neurological: see HP. Psychiatric: Denies drug use/abuse. Otherwise, not [id number] review of systems. PHYSICAL EXAMINATION: General appearance is in acute distress. HEENT: Normocephalic and nontraumatic. Eyes, nose, ears, and throat are unremarkable. Neck is supple. No lymphadenopathy. No crepitus. Cardiovascular: S1, S2. Pulmonary: On vent. Abdomen: Bowel sounds are positive. Extremities: No rash, lesions, or edema. NEUROLOGICAL EXAMINATION: On vent. Unresponsive. Not oriented to time, place and person. Pupils 1-2 mm, insensitive to light stimuli. EOMI not elicited. Corneal reflex not elicited. Gag and cough reflex noted by nurse. CN: no focal findings. Muscle tone: Decreased. Muscle strength: no movements to stimuli. DTR: 1 Plantar reflex: No response bilaterally Gait: not able to walk. Sensory exam: no response to pain stimuli. Not able to access cerebellar signs. F-T-N test not performed in unresponsive state. Objective Objective Vital Signs Date Time Temp Pulse Resp B/P (MAP) Pulse Ox O2 Delivery O2 Flow Rate FiO2 01/25/19 16:59 95.6 66 26 143/70 100 Ventilator 01/25/19 01:35 15.0 Intake and Output 01/25/19 06:59 Intake Total 4368 ml Output Total 2550 ml Balance 1818 ml Intake IV Total 4068 ml Other 300 ml Output Urine Total 2130 ml Gastric Drainage Total 400 ml Chest Tube Drainage Total 20 ml Vitals Signs Vitals VS - Last 72 Hours, by Label Date Time Temp Pulse Resp B/P (MAP) Pulse Ox O2 Delivery O2 Flow Rate FiO2 01/25/19 16:59 95.6 66 26 143/70 100 Ventilator 01/25/19 16:54 24 100 01/25/19 16:00 95.2 57 24 125/59 100 Ventilator 01/25/19 15:32 Mechanical Ventilator 01/25/19 15:28 100 Ventilator 01/25/19 15:00 94.5 50 24 109/57 100 Ventilator 01/25/19 14:00 94.2 50 24 109/57 100 Ventilator 01/25/19 13:00 94.0 48 24 97/55 100 Ventilator 01/25/19 12:00 Mechanical Ventilator 01/25/19 12:00 94.2 50 24 107/59 100 Ventilator 01/25/19 11:58 100 Ventilator 01/25/19 11:00 93.8 50 24 114/65 100 Ventilator 01/25/19 10:32 24 100 Ventilator 01/25/19 10:30 93.6 50 24 112/57 100 Ventilator 01/25/19 10:00 93.6 51 24 117/64 100 Ventilator 01/25/19 09:53 100 Ventilator 01/25/19 09:45 53 24 122/68 100 Ventilator 01/25/19 09:30 93.9 52 24 122/70 100 Ventilator 01/25/19 09:20 93.5 52 24 122/70 100 Ventilator 01/25/19 09:00 93.5 50 24 117/63 100 Ventilator 01/25/19 08:40 24 100 01/25/19 08:10 100 Ventilator 01/25/19 08:00 93.7 48 24 100/59 100 Ventilator 01/25/19 08:00 Mechanical Ventilator 01/25/19 07:00 94.3 51 24 91/50 100 Ventilator 01/25/19 07:00 93/55 (68) 01/25/19 06:30 94.5 51 24 95/52 100 Ventilator 01/25/19 06:00 94.2 56 26 102/54 100 Ventilator 01/25/19 05:35 100 Ventilator 01/25/19 05:30 93.6 62 28 126/62 100 Ventilator 01/25/19 05:00 92.8 66 24 142/74 100 Ventilator 01/25/19 04:30 92.6 56 24 132/72 100 Ventilator 01/25/19 04:00 92.1 52 24 125/68 100 Ventilator 01/25/19 04:00 Mechanical Ventilator 01/25/19 03:30 91.8 50 24 128/72 100 Ventilator 01/25/19 03:09 100 Ventilator 01/25/19 03:00 91.4 45 24 97/57 100 Ventilator 01/25/19 02:30 91.2 45 24 116/70 100 Ventilator 01/25/19 02:00 91.2 45 24 116/69 100 Ventilator 01/25/19 01:35 100 Ventilator 15.0 01/25/19 01:30 91.2 44 24 112/67 100 Ventilator 01/25/19 01:00 90.9 42 24 114/68 100 Ventilator 01/25/19 00:37 100 Ventilator 15.0 01/25/19 00:30 91.0 42 24 122/72 100 Ventilator 01/25/19 00:00 91.0 44 24 136/78 100 Ventilator 01/24/19 23:59 Mechanical Ventilator 01/24/19 23:43 100 Ventilator 01/24/19 23:30 91.2 44 24 144/81 100 Ventilator 01/24/19 22:30 91.8 46 24 133/82 100 Ventilator 01/24/19 22:00 91.8 48 24 148/80 100 Ventilator 01/24/19 21:33 100 Ventilator 01/24/19 21:00 91.8 48 24 156/82 100 Ventilator 01/24/19 20:00 Mechanical Ventilator 01/24/19 20:00 90.1 48 24 156/86 100 Ventilator 01/24/19 19:57 100 Ventilator 01/24/19 19:00 90.5 47 24 137/77 100 Ventilator 01/24/19 18:41 24 100 01/24/19 18:17 100 Ventilator 01/24/19 18:00 91.6 43 24 148/81 100 Ventilator 01/24/19 17:37 24 100 Ventilator 01/24/19 17:00 92.7 47 24 134/75 100 Ventilator 01/24/19 16:00 92.8 65 24 105/54 100 Ventilator 01/24/19 16:00 Mechanical Ventilator 01/24/19 15:50 100 Ventilator 01/24/19 15:00 92.8 51 24 105/54 100 Ventilator 01/24/19 14:00 92.7 50 24 94/57 100 Ventilator 01/24/19 13:51 100 Ventilator 01/24/19 13:00 92.2 52 24 97/74 100 Ventilator 01/24/19 12:55 24 100 01/24/19 12:00 91.2 52 24 127/79 100 Ventilator 01/24/19 12:00 Mechanical Ventilator 01/24/19 11:43 100 Ventilator 8/28/19 11:00 89.1 47 24 152/88 100 Ventilator 01/24/19 10:14 100 Ventilator 01/24/19 10:03 125/89 (101) 01/24/19 10:00 93.7 70 24 141/78 99 Ventilator 01/24/19 09:46 27 100 Ventilator 01/24/19 09:00 94.2 82 30 165/88 99 Ventilator 01/24/19 08:28 100 Ventilator 01/24/19 08:00 94.9 76 24 135/75 100 Ventilator 01/24/19 08:00 Mechanical Ventilator 01/24/19 07:00 94.6 75 25 122/65 100 Ventilator Laboratory Laboratory Laboratory Tests Test 01/24/19 17:42 01/24/19 21:00 01/24/19 21:12 01/24/19 23:01 Glucose (Fingerstick) 81 mg/dL (70-99) 82 mg/dL (70-99) 117 mg/dL (70-99) Potassium Level 3.3 mmol/L (3.5-5.1) Test 01/24/19 23:54 01/25/19 01:06 01/25/19 02:36 01/25/19 05:30 Glucose (Fingerstick) 100 mg/dL (70-99) 93 mg/dL (70-99) 82 mg/dL (70-99) White Blood Count 14.7 x10^3/uL (4.0-11.0) Red Blood Count 4.63 x10^6/uL (4.30-5.70) Hemoglobin 14.5 g/dL (13.0-17.5) Hematocrit 43.5 % (39.0-53.0) Mean Corpuscular Volume 94 fL (79-100) Mean Corpuscular Hemoglobin 31 pg (25-35) Mean Corpuscular Hemoglobin Concent 33 g/dL (31-37) Red Cell Distribution Width 13.7 % (11.5-14.5) Platelet Count 136 x10^3/uL (140-400) Neutrophils (%) (Auto) 83 % (31-73) Lymphocytes (%) (Auto) 11 % (24-48) Monocytes (%) (Auto) 5 % (0-9) Eosinophils (%) (Auto) 1 % (0-3) Basophils (%) (Auto) 1 % (0-3) Neutrophils # (Auto) 12.2 x10^3/uL (1.8-7.7) Lymphocytes # (Auto) 1.6 x10^3/uL (1.0-4.8) Monocytes # (Auto) 0.7 x10^3/uL (0.0-1.1) Eosinophils # (Auto) 0.1 x10^3/uL (0.0-0.7) Basophils # (Auto) 0.1 x10^3/uL (0.0-0.2) Sodium Level 145 mmol/L (136-145) Potassium Level 3.4 mmol/L (3.5-5.1) Chloride Level 114 mmol/L (98-107) Carbon Dioxide Level 19 mmol/L (21-32) Anion Gap 12 (6-14) Blood Urea Nitrogen 14 mg/dL (8-26) Creatinine 0.9 mg/dL (0.7-1.3) Estimated GFR (Cockcroft-Gault) 85.0 BUN/Creatinine Ratio 16 (6-20) Glucose Level 92 mg/dL (70-99) Calcium Level 7.3 mg/dL (8.5-10.1) Phosphorus Level 3.7 mg/dL (2.6-4.7) Magnesium Level 2.3 mg/dL (1.8-2.4) Total Bilirubin 1.4 mg/dL (0.2-1.0) Aspartate Amino Transf (AST/SGOT) 307 U/L (15-37) Alanine Aminotransferase (ALT/SGPT) 165 U/L (16-63) Alkaline Phosphatase 63 U/L (46-116) Total Protein 5.2 g/dL (6.4-8.2) Albumin 2.5 g/dL (3.4-5.0) Albumin/Globulin Ratio 0.9 (1.0-1.7) Test 01/25/19 05:54 01/25/19 08:00 01/25/19 08:17 Glucose (Fingerstick) 79 mg/dL (70-99) 87 mg/dL (70-99) O2 Saturation 99 % (92-99) Arterial Blood pH 7.39 (7.35-7.45) Arterial Blood pCO2 at Patient Temp 29 mmHg (35-46) Arterial Blood pO2 at Patient Temp 173 mmHg (65-108) Arterial Blood HCO3 17 mmol/L (21-28) Arterial Blood Base Excess -6 mmol/L (-3-3) FiO2 40 Microbiology 01/23/19 Blood Culture - Preliminary, Resulted NO GROWTH AFTER 1 DAY Medication Medications Current Medications Amiodarone HCl 450 mg/Dextrose 259 ml @ 17.267 mls/ hr CONT PRN IV SEE I/O RECORD Last administered on 01/25/19at 16:39; Start 01/25/19 at 13:15 Atorvastatin Calcium (Lipitor) 20 mg QHS PO Last administered on 01/24/19at 21:19; Start 01/24/19 at 21:00 Potassium Chloride/Water 100 ml @ 100 mls/hr Q1H IV ; Start 01/25/19 at 09:00; Stop 01/25/19 at 10:06; Status DC Comment Review of Relevant I have reviewed the following items yadi (where applicable) has been applied. ARMANDO MAHONEY MD Jan 25, 2019 17:23
[2019-01-25] MEDS: ATORVASTATIN CALCIUM 20 MG TABLET PO SCH (20:59)
[2019-01-25] MEDS: DAPTOmycin (GENERIC) IVPB 440 MG in IV NORMAL SALINE 50ML 50 ML IV SCH (23:11)
[2019-01-26] VITALS (25 sets, daily range): BP systolic 97–132; BP diastolic 56–80
[2019-01-26] MEDS ORDERED: PROPOFOL 100 ML IV PRN (01:00)
[2019-01-26] MEDS ORDERED: MIDAZOLAM 100mg/100ml NS BAG 100 ML IV PRN (01:00)
[2019-01-26] MEDS: AMIODARONE 450 MG in IV DEXTROSE 5% 250 ML IV PRN (04:56)
[2019-01-26] MEDS: IV NORMAL SALINE 1000ML BAG 1,000 ML IV SCH ×4 (04:56→23:52)
[2019-01-26 05:18] LABS: BASO % 0 % (0-3); EOS % 0 % (0-3); HEMATOCRIT 39.5 % (39.0-53.0); HEMOGLOBIN 13.4 g/dL (13.0-17.5); LYMPH # 0.7 x10^3/uL (1.0-4.8); LYMPH % 7 % (24-48); MEAN CORPUSCULAR HEMOGLOBIN 32 pg (25-35); MEAN CORPUSCULAR HGB CONC 34 g/dL (31-37); MEAN CORPUSCULAR VOLUME 94 fL (79-100); MONO # 0.5 x10^3/uL (0.0-1.1); MONO % 5 % (0-9); NEUT # 9.9 x10^3/uL (1.8-7.7); NEUT % 88 % (31-73); PLATELET COUNT 110 x10^3/uL (140-400); RED BLOOD COUNT 4.22 x10^6/uL (4.30-5.70); RED CELL DISTRIBUTION WIDTH 13.4 % (11.5-14.5); WHITE BLOOD COUNT 11.3 x10^3/uL (4.0-11.0)
[2019-01-26 05:58] LABS: ALBUMIN 2.4 g/dL (3.4-5.0); CALCIUM 7.6 mg/dL (8.5-10.1); CREATININE 0.9 mg/dL (0.7-1.3); POTASSIUM 3.9 mmol/L (3.5-5.1); TOTAL BILIRUBIN 0.8 mg/dL (0.2-1.0); TOTAL PROTEIN 4.8 g/dL (6.4-8.2)
[2019-01-26] MEDS: PIPERACILLIN/TAZOBACTAM 3.375 GM in IV NORMAL SALINE 50ML 50 ML IV SCH ×4 (06:00→23:52)
--- NOTE | 2019-01-26 07:11 | PDOC ---
Infectious Disease Note Subjective Subjective intubated/sedated some ROS ROS unable to obtain Vital Sign Vital Signs Vital Signs Date Time Temp Pulse Resp B/P (MAP) Pulse Ox O2 Delivery O2 Flow Rate FiO2 01/26/19 06:00 106 24 99/75 (83) 100 Ventilator 01/26/19 04:51 15.0 01/26/19 04:00 98.9 98.9 Physical Exam PHYSICAL EXAM GEN: Intubated/sedated HEENT: Pupils are small, minimally reactive. He has normal conjunctivae. He is orally intubated. NECK: Supple. No JVD. LUNGS: Decreased at bases. Left chest tube HEART: S1, S2. ABDOMEN: Minimally distended, + BS bowel sounds. He has a well-approximated incision in the left lower quadrant. GENITOURINARY: العلي is in place. EXTREMITIES: No clubbing or cyanosis. No gross edema. He has IVs in his right upper extremity x 3. Left upper extremity has 1. Right groin area has an art line in place. SKIN: Warm to touch without signs of rash. NEUROLOGICAL: He is intubated and sedated some. IV: right groin line is out. PIVs are clean Labs Lab Laboratory Tests Test 01/25/19 08:00 01/25/19 08:17 01/26/19 00:27 01/26/19 04:30 O2 Saturation 99 % (92-99) Arterial Blood pH 7.39 (7.35-7.45) Arterial Blood pCO2 at Patient Temp 29 mmHg (35-46) Arterial Blood pO2 at Patient Temp 173 mmHg (65-108) Arterial Blood HCO3 17 mmol/L (21-28) Arterial Blood Base Excess -6 mmol/L (-3-3) FiO2 40 Glucose (Fingerstick) 87 mg/dL (70-99) 86 mg/dL (70-99) White Blood Count 11.3 x10^3/uL (4.0-11.0) Red Blood Count 4.22 x10^6/uL (4.30-5.70) Hemoglobin 13.4 g/dL (13.0-17.5) Hematocrit 39.5 % (39.0-53.0) Mean Corpuscular Volume 94 fL (79-100) Mean Corpuscular Hemoglobin 32 pg (25-35) Mean Corpuscular Hemoglobin Concent 34 g/dL (31-37) Red Cell Distribution Width 13.4 % (11.5-14.5) Platelet Count 110 x10^3/uL (140-400) Neutrophils (%) (Auto) 88 % (31-73) Lymphocytes (%) (Auto) 7 % (24-48) Monocytes (%) (Auto) 5 % (0-9) Eosinophils (%) (Auto) 0 % (0-3) Basophils (%) (Auto) 0 % (0-3) Neutrophils # (Auto) 9.9 x10^3/uL (1.8-7.7) Lymphocytes # (Auto) 0.7 x10^3/uL (1.0-4.8) Monocytes # (Auto) 0.5 x10^3/uL (0.0-1.1) Eosinophils # (Auto) 0.0 x10^3/uL (0.0-0.7) Basophils # (Auto) 0.0 x10^3/uL (0.0-0.2) Sodium Level 142 mmol/L (136-145) Potassium Level 3.9 mmol/L (3.5-5.1) Chloride Level 111 mmol/L (98-107) Carbon Dioxide Level 20 mmol/L (21-32) Anion Gap 11 (6-14) Blood Urea Nitrogen 16 mg/dL (8-26) Creatinine 0.9 mg/dL (0.7-1.3) Estimated GFR (Cockcroft-Gault) 85.0 BUN/Creatinine Ratio 18 (6-20) Glucose Level 87 mg/dL (70-99) Calcium Level 7.6 mg/dL (8.5-10.1) Magnesium Level 2.1 mg/dL (1.8-2.4) Total Bilirubin 0.8 mg/dL (0.2-1.0) Aspartate Amino Transf (AST/SGOT) 238 U/L (15-37) Alanine Aminotransferase (ALT/SGPT) 145 U/L (16-63) Alkaline Phosphatase 64 U/L (46-116) Total Protein 4.8 g/dL (6.4-8.2) Albumin 2.4 g/dL (3.4-5.0) Albumin/Globulin Ratio 1.0 (1.0-1.7) Micro IMPRESSION: 1. No evidence of aortic aneurysm or definite dissection. 2. No evidence of central pulmonary embolism. Suboptimal evaluation of segmental pulmonary artery branches. 3. Small left pneumothorax. 4. Probable nondisplaced fractures of multiple bilateral upper anterior ribs. There may also be mild nondisplaced fracture of the mid sternum 5. Mild diffuse small bowel wall thickening, could indicate intramural hemorrhage or inflammatory or infectious enteritis. 6. Consolidation or infiltrate in the posterior left lower lobe. 7. Interstitial opacities, greatest in right upper lobe, indeterminate for acute infiltrates/edema or more chronic. Objective Assessment Sepsis - POA 01/23 -Blood cults neg so far. No pressors- procal 0.4 01/24 Pneumonia -LLL infiltrate and interstitial opacities -mycoplasma - neg S/p Out of hospital Cardiac arrest 01/23 with Left circumflex occlusion s/p Cath and 3 stents 01/23 Leukocytosis - Bandemia - better S/p recent LLQ hernia repair - incision is clean Small left apical pneumothorax - s/p cath placement 01/24 Vfib arrest - on amiodarone Elevated TSH - nml Free T4 Transaminitis - ? reactive - better Diffuse small bowel thickening on CT Plan Plan of Care Discont Dose dapto for blood and Zyvox for lung (01/24- 01/26) today Cont Zosyn for potential aspiration/? abdominal and CAP. Cont Doxy for atypicals and given Afib avoid quinolones/macrolides F/u Strep and legionella antigens and sputum cult F/u labs and cults Critically ill D/w nursing OLI BOBO MD Jan 26, 2019 07:11
--- NOTE | 2019-01-26 08:10 | RAD ---
Chest radiograph 01/26/2019 9:00 AM INDICATION: Respiratory failure COMPARISON: 01/25/2019 TECHNIQUE: Supine frontal view of the chest is provided. FINDINGS: The cardiomediastinal silhouette is within normal limits. Endotracheal tube, nasogastric tube and left chest wall thoracostomy tube are in similar position. There is no residual pneumothorax. No pulmonary vascular congestion. There is subsegmental atelectasis at the left lung base. No pleural effusions. IMPRESSION: Stable support lines and tubes. Similar aeration of lungs compared to prior examination. Electronically signed by: Renetta Rodriguez MD (01/26/2019 8:07 AM) [id number]
[2019-01-26] MEDS: PANTOPRAZOLE IV PUSH 40 MG VIAL. IVP SCH (08:37)
[2019-01-26] MEDS: CLOPIDOGREL BISULFATE 75 MG TABLET PO SCH (08:38)
[2019-01-26] MEDS: ASPIRIN ENTERIC COATED 325 MG TABLET.DR. PO SCH (08:38)
[2019-01-26] MEDS: DOXYCYCLINE HYCLATE 100 MG in IV DEXTROSE 5% 100ML 100 ML IV SCH ×2 (08:39→21:07)
[2019-01-26] MEDS: HEPARIN for SUB-Q USE 5,000 UNIT/ML VIAL. SQ SCH ×2 (08:40→21:08)
[2019-01-26 08:55] LABS: BASE EXCESS ABG -6 mmol/L (-3-3); HCO3 ABG 20 mmol/L (21-28); PCO2 ABG 38 mmHg (35-46); PO2 ABG 165 mmHg (65-108); SAT O2 ABG 99 % (92-99)
--- NOTE | 2019-01-26 09:13 | PDOC ---
PULMONARY PROGRESS NOTES Subjective SEDATED DOES RESPONSE TO STERNAL RUB HAS GAG REFLEX CHEST TUBE NO AIR LEAK Vitals Vital Signs Date Time Temp Pulse Resp B/P (MAP) Pulse Ox O2 Delivery O2 Flow Rate FiO2 01/26/19 07:10 100 Ventilator 01/26/19 06:00 106 24 99/75 (83) 01/26/19 04:51 15.0 01/26/19 04:00 98.9 98.9 HEENT: Other (ET TUBE) Lungs: Crackles Cardiovascular: S1, S2 Abdomen: Soft Extremities: Other (EDEMA) Skin: Warm Labs Laboratory Tests Test 01/24/19 12:15 01/24/19 13:30 01/24/19 17:42 01/24/19 21:00 White Blood Count 20.4 x10^3/uL (4.0-11.0) Red Blood Count 4.75 x10^6/uL (4.30-5.70) Hemoglobin 14.9 g/dL (13.0-17.5) Hematocrit 43.9 % (39.0-53.0) Mean Corpuscular Volume 92 fL (79-100) Mean Corpuscular Hemoglobin 32 pg (25-35) Mean Corpuscular Hemoglobin Concent 34 g/dL (31-37) Red Cell Distribution Width 13.3 % (11.5-14.5) Platelet Count 130 x10^3/uL (140-400) Prothrombin Time 16.0 SEC (11.7-14.0) Prothromb Time International Ratio 1.3 (0.8-1.1) Activated Partial Thromboplast Time 51 SEC (24-38) Sodium Level 141 mmol/L (136-145) Potassium Level 3.8 mmol/L (3.5-5.1) 3.3 mmol/L (3.5-5.1) Chloride Level 108 mmol/L (98-107) Carbon Dioxide Level 22 mmol/L (21-32) Anion Gap 11 (6-14) Blood Urea Nitrogen 15 mg/dL (8-26) Creatinine 0.7 mg/dL (0.7-1.3) Estimated GFR (Cockcroft-Gault) 113.5 Glucose Level 119 mg/dL (70-99) Calcium Level 7.6 mg/dL (8.5-10.1) Ionized Calcium 1.04 mmol/L (1.13-1.32) Phosphorus Level 2.1 mg/dL (2.6-4.7) Magnesium Level 2.5 mg/dL (1.8-2.4) O2 Saturation 98 % (92-99) Arterial Blood pH 7.41 (7.35-7.45) Arterial Blood pH (Temp corrected) 7.47 Arterial Blood pCO2 at Patient Temp 29 mmHg (35-46) Arterial Blood pCO2 (Temp correct) 25 mmHg Arterial Blood pO2 at Patient Temp 108 mmHg (65-108) Arterial Blood pO2 (Temp corrected) 88 mmHg Arterial Blood HCO3 18 mmol/L (21-28) Arterial Blood Base Excess -5 mmol/L (-3-3) FiO2 40 Glucose (Fingerstick) 81 mg/dL (70-99) Test 01/24/19 21:12 01/24/19 23:01 01/24/19 23:54 01/25/19 01:06 Glucose (Fingerstick) 82 mg/dL (70-99) 117 mg/dL (70-99) 100 mg/dL (70-99) 93 mg/dL (70-99) Test 01/25/19 02:36 01/25/19 05:30 01/25/19 05:54 01/25/19 08:00 Glucose (Fingerstick) 82 mg/dL (70-99) 79 mg/dL (70-99) White Blood Count 14.7 x10^3/uL (4.0-11.0) Red Blood Count 4.63 x10^6/uL (4.30-5.70) Hemoglobin 14.5 g/dL (13.0-17.5) Hematocrit 43.5 % (39.0-53.0) Mean Corpuscular Volume 94 fL (79-100) Mean Corpuscular Hemoglobin 31 pg (25-35) Mean Corpuscular Hemoglobin Concent 33 g/dL (31-37) Red Cell Distribution Width 13.7 % (11.5-14.5) Platelet Count 136 x10^3/uL (140-400) Neutrophils (%) (Auto) 83 % (31-73) Lymphocytes (%) (Auto) 11 % (24-48) Monocytes (%) (Auto) 5 % (0-9) Eosinophils (%) (Auto) 1 % (0-3) Basophils (%) (Auto) 1 % (0-3) Neutrophils # (Auto) 12.2 x10^3/uL (1.8-7.7) Lymphocytes # (Auto) 1.6 x10^3/uL (1.0-4.8) Monocytes # (Auto) 0.7 x10^3/uL (0.0-1.1) Eosinophils # (Auto) 0.1 x10^3/uL (0.0-0.7) Basophils # (Auto) 0.1 x10^3/uL (0.0-0.2) Sodium Level 145 mmol/L (136-145) Potassium Level 3.4 mmol/L (3.5-5.1) Chloride Level 114 mmol/L (98-107) Carbon Dioxide Level 19 mmol/L (21-32) Anion Gap 12 (6-14) Blood Urea Nitrogen 14 mg/dL (8-26) Creatinine 0.9 mg/dL (0.7-1.3) Estimated GFR (Cockcroft-Gault) 85.0 BUN/Creatinine Ratio 16 (6-20) Glucose Level 92 mg/dL (70-99) Calcium Level 7.3 mg/dL (8.5-10.1) Phosphorus Level 3.7 mg/dL (2.6-4.7) Magnesium Level 2.3 mg/dL (1.8-2.4) Total Bilirubin 1.4 mg/dL (0.2-1.0) Aspartate Amino Transf (AST/SGOT) 307 U/L (15-37) Alanine Aminotransferase (ALT/SGPT) 165 U/L (16-63) Alkaline Phosphatase 63 U/L (46-116) Total Protein 5.2 g/dL (6.4-8.2) Albumin 2.5 g/dL (3.4-5.0) Albumin/Globulin Ratio 0.9 (1.0-1.7) O2 Saturation 99 % (92-99) Arterial Blood pH 7.39 (7.35-7.45) Arterial Blood pCO2 at Patient Temp 29 mmHg (35-46) Arterial Blood pO2 at Patient Temp 173 mmHg (65-108) Arterial Blood HCO3 17 mmol/L (21-28) Arterial Blood Base Excess -6 mmol/L (-3-3) FiO2 40 Test 8/29/19 08:17 01/26/19 00:27 01/26/19 04:30 Glucose (Fingerstick) 87 mg/dL (70-99) 86 mg/dL (70-99) White Blood Count 11.3 x10^3/uL (4.0-11.0) Red Blood Count 4.22 x10^6/uL (4.30-5.70) Hemoglobin 13.4 g/dL (13.0-17.5) Hematocrit 39.5 % (39.0-53.0) Mean Corpuscular Volume 94 fL (79-100) Mean Corpuscular Hemoglobin 32 pg (25-35) Mean Corpuscular Hemoglobin Concent 34 g/dL (31-37) Red Cell Distribution Width 13.4 % (11.5-14.5) Platelet Count 110 x10^3/uL (140-400) Neutrophils (%) (Auto) 88 % (31-73) Lymphocytes (%) (Auto) 7 % (24-48) Monocytes (%) (Auto) 5 % (0-9) Eosinophils (%) (Auto) 0 % (0-3) Basophils (%) (Auto) 0 % (0-3) Neutrophils # (Auto) 9.9 x10^3/uL (1.8-7.7) Lymphocytes # (Auto) 0.7 x10^3/uL (1.0-4.8) Monocytes # (Auto) 0.5 x10^3/uL (0.0-1.1) Eosinophils # (Auto) 0.0 x10^3/uL (0.0-0.7) Basophils # (Auto) 0.0 x10^3/uL (0.0-0.2) Sodium Level 142 mmol/L (136-145) Potassium Level 3.9 mmol/L (3.5-5.1) Chloride Level 111 mmol/L (98-107) Carbon Dioxide Level 20 mmol/L (21-32) Anion Gap 11 (6-14) Blood Urea Nitrogen 16 mg/dL (8-26) Creatinine 0.9 mg/dL (0.7-1.3) Estimated GFR (Cockcroft-Gault) 85.0 BUN/Creatinine Ratio 18 (6-20) Glucose Level 87 mg/dL (70-99) Calcium Level 7.6 mg/dL (8.5-10.1) Magnesium Level 2.1 mg/dL (1.8-2.4) Total Bilirubin 0.8 mg/dL (0.2-1.0) Aspartate Amino Transf (AST/SGOT) 238 U/L (15-37) Alanine Aminotransferase (ALT/SGPT) 145 U/L (16-63) Alkaline Phosphatase 64 U/L (46-116) Total Protein 4.8 g/dL (6.4-8.2) Albumin 2.4 g/dL (3.4-5.0) Albumin/Globulin Ratio 1.0 (1.0-1.7) Laboratory Tests Test 01/26/19 00:27 01/26/19 04:30 Glucose (Fingerstick) 86 mg/dL (70-99) White Blood Count 11.3 x10^3/uL (4.0-11.0) Red Blood Count 4.22 x10^6/uL (4.30-5.70) Hemoglobin 13.4 g/dL (13.0-17.5) Hematocrit 39.5 % (39.0-53.0) Mean Corpuscular Volume 94 fL (79-100) Mean Corpuscular Hemoglobin 32 pg (25-35) Mean Corpuscular Hemoglobin Concent 34 g/dL (31-37) Red Cell Distribution Width 13.4 % (11.5-14.5) Platelet Count 110 x10^3/uL (140-400) Neutrophils (%) (Auto) 88 % (31-73) Lymphocytes (%) (Auto) 7 % (24-48) Monocytes (%) (Auto) 5 % (0-9) Eosinophils (%) (Auto) 0 % (0-3) Basophils (%) (Auto) 0 % (0-3) Neutrophils # (Auto) 9.9 x10^3/uL (1.8-7.7) Lymphocytes # (Auto) 0.7 x10^3/uL (1.0-4.8) Monocytes # (Auto) 0.5 x10^3/uL (0.0-1.1) Eosinophils # (Auto) 0.0 x10^3/uL (0.0-0.7) Basophils # (Auto) 0.0 x10^3/uL (0.0-0.2) Sodium Level 142 mmol/L (136-145) Potassium Level 3.9 mmol/L (3.5-5.1) Chloride Level 111 mmol/L (98-107) Carbon Dioxide Level 20 mmol/L (21-32) Anion Gap 11 (6-14) Blood Urea Nitrogen 16 mg/dL (8-26) Creatinine 0.9 mg/dL (0.7-1.3) Estimated GFR (Cockcroft-Gault) 85.0 BUN/Creatinine Ratio 18 (6-20) Glucose Level 87 mg/dL (70-99) Calcium Level 7.6 mg/dL (8.5-10.1) Magnesium Level 2.1 mg/dL (1.8-2.4) Total Bilirubin 0.8 mg/dL (0.2-1.0) Aspartate Amino Transf (AST/SGOT) 238 U/L (15-37) Alanine Aminotransferase (ALT/SGPT) 145 U/L (16-63) Alkaline Phosphatase 64 U/L (46-116) Total Protein 4.8 g/dL (6.4-8.2) Albumin 2.4 g/dL (3.4-5.0) Albumin/Globulin Ratio 1.0 (1.0-1.7) Impression . 1. Acute respiratory failure secondary to [id number] cardiopulmonary arrest. 2. [id number] cardiopulmonary arrest. 3. Ventricular fibrillation. 4. Coronary artery disease. 5. Ischemic cardiomyopathy with ejection fraction of 30-35%. 6. Status post stent placement to the left circumflex. 7. Ggpcc-yx-[id number] diastolic heart failure. 8. Possible pneumonia/aspiration. 9. Left traumatic pneumothorax. 10. Elevated liver chemistries. 11. Acute renal failure. 12. Hypothyroidism. 13. Tobacco dependent. 14. Positive drug screen. Plan . ABG NOTED CXR NO PTX NOT READY FOR WEAN NO AIRLEAK WITH CHEST TUBE D/W RN AND RT ANTIBX PER ID FOLLOW CARD INPUT 1. Continue current support, adjust minute ventilation to normalized pH. 2. Empiric antibiotics per ID. 3. FOLLOW CXR AND ABG 4. Follow Cardiology input. 5. Amiodarone drip. 6. DVT/GI prophylaxis. 7. Initiate tube feeding once hypothermia protocol has been completed. 8. S/P CHEST TUBE 01/24 JOE WHITE MD Jan 26, 2019 09:13
--- NOTE | 2019-01-26 09:51 | PDOC ---
PROGRESS NOTES Chief Complaint Chief Complaint CAD s/p stat PCI/LHC with stents to left circ (x 3 stents) s/p out of hospital cardiac arrest, V Fib with ROSC after 33 mins CPR and 5 defibrillations given Post intubation APICAL PTX s/p chest tube (01/24) Respi failure sec to above # 1 on IPPV Asthma SIRS sec to # 1, no infection REactive leukocytosis CRITCAL hypokalemia, 2,8 HYPERmagnesemia 2.7 MARIANNE post code MIld hypochloremia 101 History of Present Illness History of Present Illness intubated, sedated Rewarmed and now normothermic at bedside HE opens his eyes and recognizes the Neuro status post code seems to be intact, or at least promising s/p chest tube on the left because of inc size of apical ptx post code and on IPPV No ABG yet, still on versed s/p PCI too by cards x 1 on day of admission PLAn: vent weaning per cards Check abg this AMm cxrm vent bundle etc ON dapto, doxy, zosyn and fentanyl per iD dc insulin gtt (clean up jul) FULL CODE Dw at bedside and DIRECTOR DATABASE Vitals Vitals Vital Signs Date Time Temp Pulse Resp B/P (MAP) Pulse Ox O2 Delivery O2 Flow Rate FiO2 01/26/19 09:31 100 Ventilator 01/26/19 06:00 106 24 99/75 (83) 01/26/19 04:51 15.0 01/26/19 04:00 98.9 98.9 Physical Exam Physical Exam GEN: Intubated/sedated HEENT: Pupils are small, minimally reactive. He has normal conjunctivae. He is orally intubated. NECK: Supple. No JVD. LUNGS: Decreased at bases. Left chest tube HEART: S1, S2. ABDOMEN: Minimally distended, + BS bowel sounds. He has a well-approximated incision in the left lower quadrant. GENITOURINARY: العلي is in place. EXTREMITIES: No clubbing or cyanosis. No gross edema. He has IVs in his right upper extremity x 3. Left upper extremity has 1. Right groin area has an art line in place. SKIN: Warm to touch without signs of rash. NEUROLOGICAL: He is intubated and sedated some. IV: right groin line is out. PIVs are clean General: No acute distress, Other (SEDATED) Heart: Regular rate, Normal S1, Normal S2, No murmurs, Other (IRREGULAR) Lungs: Crackles Abdomen: Normal bowel sounds, Soft, No tenderness, Other (HYPOACTIVE) Extremities: No clubbing, No cyanosis, No edema, Normal pulses Skin: No breakdown, No significant lesion Labs LABS Laboratory Tests Test 01/26/19 00:27 01/26/19 04:30 Glucose (Fingerstick) 86 mg/dL (70-99) White Blood Count 11.3 x10^3/uL (4.0-11.0) Red Blood Count 4.22 x10^6/uL (4.30-5.70) Hemoglobin 13.4 g/dL (13.0-17.5) Hematocrit 39.5 % (39.0-53.0) Mean Corpuscular Volume 94 fL (79-100) Mean Corpuscular Hemoglobin 32 pg (25-35) Mean Corpuscular Hemoglobin Concent 34 g/dL (31-37) Red Cell Distribution Width 13.4 % (11.5-14.5) Platelet Count 110 x10^3/uL (140-400) Neutrophils (%) (Auto) 88 % (31-73) Lymphocytes (%) (Auto) 7 % (24-48) Monocytes (%) (Auto) 5 % (0-9) Eosinophils (%) (Auto) 0 % (0-3) Basophils (%) (Auto) 0 % (0-3) Neutrophils # (Auto) 9.9 x10^3/uL (1.8-7.7) Lymphocytes # (Auto) 0.7 x10^3/uL (1.0-4.8) Monocytes # (Auto) 0.5 x10^3/uL (0.0-1.1) Eosinophils # (Auto) 0.0 x10^3/uL (0.0-0.7) Basophils # (Auto) 0.0 x10^3/uL (0.0-0.2) Sodium Level 142 mmol/L (136-145) Potassium Level 3.9 mmol/L (3.5-5.1) Chloride Level 111 mmol/L (98-107) Carbon Dioxide Level 20 mmol/L (21-32) Anion Gap 11 (6-14) Blood Urea Nitrogen 16 mg/dL (8-26) Creatinine 0.9 mg/dL (0.7-1.3) Estimated GFR (Cockcroft-Gault) 85.0 BUN/Creatinine Ratio 18 (6-20) Glucose Level 87 mg/dL (70-99) Calcium Level 7.6 mg/dL (8.5-10.1) Magnesium Level 2.1 mg/dL (1.8-2.4) Total Bilirubin 0.8 mg/dL (0.2-1.0) Aspartate Amino Transf (AST/SGOT) 238 U/L (15-37) Alanine Aminotransferase (ALT/SGPT) 145 U/L (16-63) Alkaline Phosphatase 64 U/L (46-116) Total Protein 4.8 g/dL (6.4-8.2) Albumin 2.4 g/dL (3.4-5.0) Albumin/Globulin Ratio 1.0 (1.0-1.7) Review of Systems Review of Systems intubated, sedated Assessment and Plan Assessmemt and Plan Problems Medical Problems: (1) Cardiorespiratory arrest Status: Acute (2) Elevated liver function tests Status: Acute (3) Elevated troponin Status: Acute (4) Hyperglycemia Status: Acute (5) Hypokalemia Status: Acute (6) Metabolic acidosis Status: Acute (7) Renal insufficiency Status: Acute (8) Ribs, multiple fractures Status: Acute (9) Severe sepsis Status: Acute (10) STEMI (ST elevation myocardial infarction) Status: Acute (11) Traumatic pneumothorax Status: Acute Comment Review of Relevant I have reviewed the following items yadi (where applicable) has been applied. Labs Laboratory Tests Test 01/24/19 12:15 01/24/19 13:30 01/24/19 17:42 01/24/19 21:00 White Blood Count 20.4 x10^3/uL (4.0-11.0) Red Blood Count 4.75 x10^6/uL (4.30-5.70) Hemoglobin 14.9 g/dL (13.0-17.5) Hematocrit 43.9 % (39.0-53.0) Mean Corpuscular Volume 92 fL (79-100) Mean Corpuscular Hemoglobin 32 pg (25-35) Mean Corpuscular Hemoglobin Concent 34 g/dL (31-37) Red Cell Distribution Width 13.3 % (11.5-14.5) Platelet Count 130 x10^3/uL (140-400) Prothrombin Time 16.0 SEC (11.7-14.0) Prothromb Time International Ratio 1.3 (0.8-1.1) Activated Partial Thromboplast Time 51 SEC (24-38) Sodium Level 141 mmol/L (136-145) Potassium Level 3.8 mmol/L (3.5-5.1) 3.3 mmol/L (3.5-5.1) Chloride Level 108 mmol/L (98-107) Carbon Dioxide Level 22 mmol/L (21-32) Anion Gap 11 (6-14) Blood Urea Nitrogen 15 mg/dL (8-26) Creatinine 0.7 mg/dL (0.7-1.3) Estimated GFR (Cockcroft-Gault) 113.5 Glucose Level 119 mg/dL (70-99) Calcium Level 7.6 mg/dL (8.5-10.1) Ionized Calcium 1.04 mmol/L (1.13-1.32) Phosphorus Level 2.1 mg/dL (2.6-4.7) Magnesium Level 2.5 mg/dL (1.8-2.4) O2 Saturation 98 % (92-99) Arterial Blood pH 7.41 (7.35-7.45) Arterial Blood pH (Temp corrected) 7.47 Arterial Blood pCO2 at Patient Temp 29 mmHg (35-46) Arterial Blood pCO2 (Temp correct) 25 mmHg Arterial Blood pO2 at Patient Temp 108 mmHg (65-108) Arterial Blood pO2 (Temp corrected) 88 mmHg Arterial Blood HCO3 18 mmol/L (21-28) Arterial Blood Base Excess -5 mmol/L (-3-3) FiO2 40 Glucose (Fingerstick) 81 mg/dL (70-99) Test 01/24/19 21:12 01/24/19 23:01 01/24/19 23:54 01/25/19 01:06 Glucose (Fingerstick) 82 mg/dL (70-99) 117 mg/dL (70-99) 100 mg/dL (70-99) 93 mg/dL (70-99) Test 01/25/19 02:36 01/25/19 05:30 01/25/19 05:54 8/29/19 08:00 Glucose (Fingerstick) 82 mg/dL (70-99) 79 mg/dL (70-99) White Blood Count 14.7 x10^3/uL (4.0-11.0) Red Blood Count 4.63 x10^6/uL (4.30-5.70) Hemoglobin 14.5 g/dL (13.0-17.5) Hematocrit 43.5 % (39.0-53.0) Mean Corpuscular Volume 94 fL (79-100) Mean Corpuscular Hemoglobin 31 pg (25-35) Mean Corpuscular Hemoglobin Concent 33 g/dL (31-37) Red Cell Distribution Width 13.7 % (11.5-14.5) Platelet Count 136 x10^3/uL (140-400) Neutrophils (%) (Auto) 83 % (31-73) Lymphocytes (%) (Auto) 11 % (24-48) Monocytes (%) (Auto) 5 % (0-9) Eosinophils (%) (Auto) 1 % (0-3) Basophils (%) (Auto) 1 % (0-3) Neutrophils # (Auto) 12.2 x10^3/uL (1.8-7.7) Lymphocytes # (Auto) 1.6 x10^3/uL (1.0-4.8) Monocytes # (Auto) 0.7 x10^3/uL (0.0-1.1) Eosinophils # (Auto) 0.1 x10^3/uL (0.0-0.7) Basophils # (Auto) 0.1 x10^3/uL (0.0-0.2) Sodium Level 145 mmol/L (136-145) Potassium Level 3.4 mmol/L (3.5-5.1) Chloride Level 114 mmol/L (98-107) Carbon Dioxide Level 19 mmol/L (21-32) Anion Gap 12 (6-14) Blood Urea Nitrogen 14 mg/dL (8-26) Creatinine 0.9 mg/dL (0.7-1.3) Estimated GFR (Cockcroft-Gault) 85.0 BUN/Creatinine Ratio 16 (6-20) Glucose Level 92 mg/dL (70-99) Calcium Level 7.3 mg/dL (8.5-10.1) Phosphorus Level 3.7 mg/dL (2.6-4.7) Magnesium Level 2.3 mg/dL (1.8-2.4) Total Bilirubin 1.4 mg/dL (0.2-1.0) Aspartate Amino Transf (AST/SGOT) 307 U/L (15-37) Alanine Aminotransferase (ALT/SGPT) 165 U/L (16-63) Alkaline Phosphatase 63 U/L (46-116) Total Protein 5.2 g/dL (6.4-8.2) Albumin 2.5 g/dL (3.4-5.0) Albumin/Globulin Ratio 0.9 (1.0-1.7) O2 Saturation 99 % (92-99) Arterial Blood pH 7.39 (7.35-7.45) Arterial Blood pCO2 at Patient Temp 29 mmHg (35-46) Arterial Blood pO2 at Patient Temp 173 mmHg (65-108) Arterial Blood HCO3 17 mmol/L (21-28) Arterial Blood Base Excess -6 mmol/L (-3-3) FiO2 40 Test 01/25/19 08:17 01/26/19 00:27 01/26/19 04:30 Glucose (Fingerstick) 87 mg/dL (70-99) 86 mg/dL (70-99) White Blood Count 11.3 x10^3/uL (4.0-11.0) Red Blood Count 4.22 x10^6/uL (4.30-5.70) Hemoglobin 13.4 g/dL (13.0-17.5) Hematocrit 39.5 % (39.0-53.0) Mean Corpuscular Volume 94 fL (79-100) Mean Corpuscular Hemoglobin 32 pg (25-35) Mean Corpuscular Hemoglobin Concent 34 g/dL (31-37) Red Cell Distribution Width 13.4 % (11.5-14.5) Platelet Count 110 x10^3/uL (140-400) Neutrophils (%) (Auto) 88 % (31-73) Lymphocytes (%) (Auto) 7 % (24-48) Monocytes (%) (Auto) 5 % (0-9) Eosinophils (%) (Auto) 0 % (0-3) Basophils (%) (Auto) 0 % (0-3) Neutrophils # (Auto) 9.9 x10^3/uL (1.8-7.7) Lymphocytes # (Auto) 0.7 x10^3/uL (1.0-4.8) Monocytes # (Auto) 0.5 x10^3/uL (0.0-1.1) Eosinophils # (Auto) 0.0 x10^3/uL (0.0-0.7) Basophils # (Auto) 0.0 x10^3/uL (0.0-0.2) Sodium Level 142 mmol/L (136-145) Potassium Level 3.9 mmol/L (3.5-5.1) Chloride Level 111 mmol/L (98-107) Carbon Dioxide Level 20 mmol/L (21-32) Anion Gap 11 (6-14) Blood Urea Nitrogen 16 mg/dL (8-26) Creatinine 0.9 mg/dL (0.7-1.3) Estimated GFR (Cockcroft-Gault) 85.0 BUN/Creatinine Ratio 18 (6-20) Glucose Level 87 mg/dL (70-99) Calcium Level 7.6 mg/dL (8.5-10.1) Magnesium Level 2.1 mg/dL (1.8-2.4) Total Bilirubin 0.8 mg/dL (0.2-1.0) Aspartate Amino Transf (AST/SGOT) 238 U/L (15-37) Alanine Aminotransferase (ALT/SGPT) 145 U/L (16-63) Alkaline Phosphatase 64 U/L (46-116) Total Protein 4.8 g/dL (6.4-8.2) Albumin 2.4 g/dL (3.4-5.0) Albumin/Globulin Ratio 1.0 (1.0-1.7) Laboratory Tests Test 01/26/19 00:27 01/26/19 04:30 Glucose (Fingerstick) 86 mg/dL (70-99) White Blood Count 11.3 x10^3/uL (4.0-11.0) Red Blood Count 4.22 x10^6/uL (4.30-5.70) Hemoglobin 13.4 g/dL (13.0-17.5) Hematocrit 39.5 % (39.0-53.0) Mean Corpuscular Volume 94 fL (79-100) Mean Corpuscular Hemoglobin 32 pg (25-35) Mean Corpuscular Hemoglobin Concent 34 g/dL (31-37) Red Cell Distribution Width 13.4 % (11.5-14.5) Platelet Count 110 x10^3/uL (140-400) Neutrophils (%) (Auto) 88 % (31-73) Lymphocytes (%) (Auto) 7 % (24-48) Monocytes (%) (Auto) 5 % (0-9) Eosinophils (%) (Auto) 0 % (0-3) Basophils (%) (Auto) 0 % (0-3) Neutrophils # (Auto) 9.9 x10^3/uL (1.8-7.7) Lymphocytes # (Auto) 0.7 x10^3/uL (1.0-4.8) Monocytes # (Auto) 0.5 x10^3/uL (0.0-1.1) Eosinophils # (Auto) 0.0 x10^3/uL (0.0-0.7) Basophils # (Auto) 0.0 x10^3/uL (0.0-0.2) Sodium Level 142 mmol/L (136-145) Potassium Level 3.9 mmol/L (3.5-5.1) Chloride Level 111 mmol/L (98-107) Carbon Dioxide Level 20 mmol/L (21-32) Anion Gap 11 (6-14) Blood Urea Nitrogen 16 mg/dL (8-26) Creatinine 0.9 mg/dL (0.7-1.3) Estimated GFR (Cockcroft-Gault) 85.0 BUN/Creatinine Ratio 18 (6-20) Glucose Level 87 mg/dL (70-99) Calcium Level 7.6 mg/dL (8.5-10.1) Magnesium Level 2.1 mg/dL (1.8-2.4) Total Bilirubin 0.8 mg/dL (0.2-1.0) Aspartate Amino Transf (AST/SGOT) 238 U/L (15-37) Alanine Aminotransferase (ALT/SGPT) 145 U/L (16-63) Alkaline Phosphatase 64 U/L (46-116) Total Protein 4.8 g/dL (6.4-8.2) Albumin 2.4 g/dL (3.4-5.0) Albumin/Globulin Ratio 1.0 (1.0-1.7) Microbiology 8/27/19 Blood Culture - Preliminary, Resulted NO GROWTH AFTER 2 DAYS Medications Current Medications Sodium Chloride 1,000 ml @ 1,000 mls/hr Q1H IV Last administered on 01/23/19at 17:23; Start 01/23/19 at 15:13; Stop 01/23/19 at 16:12; Status DC Sodium Bicarbonate (Sodium Bicarb Adult 8.4% Syr) 100 meq 1X ONCE IV Last administered on 01/23/19at 17:23; Start 01/23/19 at 15:30; Stop 01/23/19 at 15:59; Status DC Midazolam HCl (Versed) 5 mg STK-MED ONCE .ROUTE ; Start 01/23/19 at 15:25; Stop 01/23/19 at 15:25; Status DC Propofol 50 ml @ As Directed STK-MED ONCE IV ; Start 01/23/19 at 15:25; Stop 01/23/19 at 15:25; Status DC Calcium Gluconate (Calcium Gluconate) 1,000 mg 1X ONCE IVP Last administered on 01/23/19at 16:12; Start 01/23/19 at 16:00; Stop 01/23/19 at 16:01; Status DC Dextrose (Dextrose 50%-Water Syringe) 25 gm 1X ONCE IV ; Start 01/23/19 at 15:45; Stop 01/23/19 at 15:53; Status DC Insulin Human Regular (HumuLIN R VIAL) 10 unit 1X ONCE IV ; Start 01/23/19 at 15:45; Stop 01/23/19 at 15:53; Status DC Iohexol (Omnipaque 350 Mg/ml) 90 ml 1X ONCE IV Last administered on 01/23/19at 16:08; Start 01/23/19 at 15:45; Stop 01/23/19 at 16:00; Status DC Amiodarone HCl 900 mg/Dextrose 518 ml @ 0 mls/hr CONT PRN IV SEE I/O RECORD Last administered on 01/23/19at 17:06; Start 01/23/19 at 16:00; Stop 01/23/19 at 17:06; Status DC Piperacillin Sod/ Tazobactam Sod 3.375 gm/Sodium Chloride 50 ml @ 100 mls/hr 1X ONCE IV Last administered on 01/23/19at 22:19; Start 01/23/19 at 16:00; Stop 01/23/19 at 16:29; Status DC Vancomycin HCl 250 ml @ 250 mls/hr 1X ONCE IV ; Start 01/23/19 at 16:00; Stop 01/23/19 at 16:24; Status DC Fentanyl Citrate (Fentanyl 2ml Vial) 100 mcg 1X ONCE IV ; Start 01/23/19 at 16:15; Stop 01/23/19 at 16:24; Status DC Midazolam HCl (Versed) 2 mg 1X ONCE IV ; Start 01/23/19 at 16:15; Stop 01/23/19 at 16:24; Status DC Magnesium Sulfate/ Dextrose 100 ml @ 100 mls/hr 1X ONCE IV ; Start 01/23/19 at 16:15; Stop 01/23/19 at 17:14; Status DC Buspirone HCl (Buspar) 30 mg Q8H NG Last administered on 01/25/19at 08:47; Start 01/23/19 at 17:00; Stop 01/25/19 at 09:01; Status DC Acetaminophen (Tylenol) 650 mg Q4H NG Last administered on 01/25/19at 11:11; Start 01/23/19 at 16:15; Stop 01/26/19 at 01:00; Status DC Artificial Tears (Artificial Tears) 1 drop Q6HRS OU Last administered on 01/25/19at 23:53; Start 01/23/19 at 18:00; Stop 01/26/19 at 01:00; Status DC Artificial Tears (Artificial Tears) 1 drop PRN Q15MIN PRN OU DRY EYE; Start 01/23/19 at 16:15; Stop 01/26/19 at 01:00; Status DC Heparin Sodium (Porcine) (Heparin Sodium) 5,000 unit BID SQ ; Start 01/23/19 at 21:00; Stop 01/23/19 at 16:53; Status DC Pantoprazole Sodium (PROTONIX VIAL for IV PUSH) 40 mg DAILY IVP ; Start 01/24/19 at 09:00; Stop 01/23/19 at 20:27; Status DC Fentanyl Citrate 30 ml @ 0 mls/hr CONT PRN IV PER PROTOCOL.; Start 01/23/19 at 16:15; Stop 01/23/19 at 18:01; Status DC Propofol 100 ml @ 0 mls/hr CONT PRN IV PER PROTOCOL.; Start 01/23/19 at 16:15; Stop 01/23/19 at 20:27; Status DC Midazolam HCl 100 ml @ 0 mls/hr CONT PRN IV PER PROTOCOL. Last administered on 01/23/19at 16:50; Start 01/23/19 at 16:15; Stop 01/23/19 at 20:26; Status DC Vecuronium [place] (Norcuron Bolus) 7 mg PRN Q1HR PRN IV SHIVERING; Start 01/23/19 at 16:15; Stop 01/23/19 at 20:28; Status DC Pantoprazole Sodium (PROTONIX VIAL for IV PUSH) 40 mg DAILYAC IVP ; Start 01/24/19 at 07:30; Stop 01/23/19 at 16:25; Status DC Pantoprazole Sodium (PROTONIX VIAL for IV PUSH) 40 mg 1X ONCE IVP Last administered on 01/23/19at 23:43; Start 01/23/19 at 17:00; Stop 01/23/19 at 17:01; Status DC Enoxaparin Sodium (Lovenox 40mg Syringe) 40 mg Q24H SQ ; Start 01/23/19 at 21:00; Stop 01/23/19 at 23:59; Status DC Sodium Chloride 1,000 ml @ 150 mls/hr Q6H40M IV Last administered on 01/24/19at 04:43; Start 01/23/19 at 16:11; Stop 01/24/19 at 11:40; Status DC Potassium Chloride/Water 100 ml @ 100 mls/hr Q1H IV Last administered on 01/23/19at 19:06; Start 01/23/19 at 17:00; Stop 01/23/19 at 20:59; Status DC Potassium Chloride/Water 100 ml @ 100 mls/hr Q1H IV ; Start 01/23/19 at 22:00; Stop 01/23/19 at 23:59; Status DC Vancomycin HCl 1.75 gm/Sodium Chloride 500 ml @ 250 mls/hr 1X ONCE IV Last administered on 01/23/19at 23:42; Start 01/23/19 at 18:00; Stop 01/23/19 at 19:59; Status DC Aspirin (Aspirin Rectal Supp) 300 mg 1X ONCE HI Last administered on 01/23/19at 20:27; Start 01/23/19 at 17:00; Stop 01/23/19 at 17:01; Status DC Lidocaine HCl (Lidocaine 1% 20ml Vial) 20 ml STK-MED ONCE .ROUTE ; Start at 16:37; Stop 01/23/19 at 16:37; Status DC Heparin Sodium/ Sodium Chloride 1,000 ml @ As Directed STK-MED ONCE .ROUTE ; S tart 01/23/19 at 16:37; Stop 01/23/19 at 16:38; Status DC Heparin Sodium/ Dextrose 500 ml @ 0 mls/hr CONT PRN IV SEE I/O RECORD; Start 01/23/19 at 17:00; Stop 01/23/19 at 23:27; Status DC Midazolam HCl (Versed) 5 mg STK-MED ONCE .ROUTE ; Start 01/23/19 at 17:00; Stop 01/23/19 at 17:00; Status DC Sodium Chloride 1,000 ml @ 1,000 mls/hr 1X ONCE IV Last administered on 01/23/19at 18:58; Start 01/23/19 at 17:30; Stop 01/23/19 at 18:29; Status DC Propofol 50 ml @ 2.1 mls/hr 1X STAT IV Last administered on 01/23/19at 18:51; Start 01/23/19 at 17:17; Stop 01/23/19 at 20:27; Status DC Midazolam HCl (Versed) 5 mg 1X ONCE IV Last administered on 01/23/19at 18:18; Start 01/23/19 at 17:30; Stop 01/23/19 at 17:31; Status DC Fentanyl Citrate 30 ml @ 0 mls/hr CONT PRN PRN IV PER PROTOCOL; Start 01/23/19 at 17:45; Status Cancel Naloxone HCl (Narcan) 0.4 mg PRN Q2MIN PRN IV SEE INSTRUCTIONS; Start 01/23/19 at 17:45 Sodium Chloride 1,000 ml @ 25 mls/hr Q24H IV Last administered on 01/25/19at 16:39; Start 01/23/19 at 17:33 Midazolam HCl (Versed) 5 mg 1X ONCE IV Last administered on 01/23/19at 19:02; Start 01/23/19 at 18:15; Stop 01/23/19 at 18:16; Status DC Amiodarone HCl (Cordarone) 150 mg STK-MED ONCE .ROUTE ; Start 01/23/19 at 18:11; Stop 01/23/19 at 18:12; Status DC Iodixanol (Visipaque 320) 100 ml STK-MED ONCE .ROUTE ; Start 01/23/19 at 18:19; Stop 01/23/19 at 18:19; Status DC Bivalirudin (Angiomax) 250 mg STK-MED ONCE IV ; Start 01/23/19 at 18:20; Stop 01/23/19 at 18:20; Status DC Nitroglycerin (Nitroglycerin) 200 mcg 1X ONCE IART Last administered on 01/23/19 19:10; Start 01/23/19 at 18:45; Stop 01/23/19 at 18:56; Status DC Heparin Sodium/ Sodium Chloride (HEPARIN for ARTERIAL LINE FLUSH) 1,000 unit 1X ONCE IART Last administered on 01/23/19at 19:10; Start 01/23/19 at 18:45; Stop 01/23/19 at 18:56; Status DC Heparin Sodium/ Sodium Chloride (HEPARIN for ARTERIAL LINE FLUSH) 1,000 unit 1X ONCE IART Last administered on 01/23/19at 19:10; Start 01/23/19 at 18:45; Stop 01/23/19 at 18:56; Status DC Iodixanol (Visipaque 320) 100 ml 1X ONCE IART Last administered on 01/23/19 19:10; Start 01/23/19 at 18:45; Stop 01/23/19 at 18:56; Status DC Bivalirudin (Angiomax) 250 mg 1X ONCE IV Last administered on 01/23/19at 19:10; Start 01/23/19 at 18:45; Stop 01/23/19 at 18:56; Status DC Lidocaine HCl (Lidocaine 1% 20ml Vial) 10 ml 1X ONCE INJ Last administered on 01/23/19at 19:10; Start 01/23/19 at 18:45; Stop 01/23/19 at 18:56; Status DC Amiodarone HCl 150 mg/Dextrose 103 ml @ 0 mls/hr 1X ONCE IV Last administered on 01/23/19at 19:10; Start 01/23/19 at 19:00; Stop 01/23/19 at 19:01; Status DC Info (CONTRAST GIVEN -- Rx MONITORING) 1 each PRN DAILY PRN MC SEE COMMENTS; Start 01/23/19 at 19:00; Stop 01/25/19 at 18:59; Status DC Heparin Sodium/ Sodium Chloride 500 ml @ As Directed STK-MED ONCE .ROUTE ; Start 01/23/19 at 19:02; Stop 01/23/19 at 19:03; Status DC Sodium Chloride (Normal Saline Flush) 3 ml QSHIFT PRN IV AFTER MEDS AND BLOOD DRAWS; Start 01/23/19 at 19:30 Sodium Chloride 1,000 ml @ 75 mls/hr [id number] IV Last administered on 01/23/19at 20:27; Start 01/23/19 at 19:17; Stop 01/24/19 at 03:16; Status DC Aspirin (Ecotrin) 325 mg DAILYWBKFT PO Last administered on 01/26/19at 08:40; Start 01/24/19 at 08:00 Clopidogrel Bisulfate (Plavix) 75 mg DAILYWBKFT PO Last administered on 01/26/19at 08:40; Start 01/24/19 at 08:00 Acetaminophen (Tylenol) 650 mg PRN Q6HRS PRN PO MILD PAIN / TEMP; Start 01/23/19 at 19:30 Fentanyl Citrate (Fentanyl 2ml Vial) 50 mcg PRN Q1HR PRN IV MODERATE OR SEVERE PAIN; Start 01/23/19 at 19:30; Stop 01/26/19 at 00:59; Status DC Nitroglycerin (Nitrostat) 0.4 mg PRN Q5MIN PRN SL CHEST PAIN; Start 01/23/19 at 19:30 Amiodarone HCl 150 mg/Dextrose 103 ml @ 600 mls/hr 1X PRN PRN IV FOR VENTRICULAR TACHYCARDIA; Start 01/23/19 at 19:30 Lidocaine HCl (Lidocaine HCl 2% Abboject) 100 mg 1X PRN PRN IV FOR VENTRICULAR TACHYCARDIA; Start 01/23/19 at 19:30 Atropine Sulfate (ATROPINE 0.5mg SYRINGE) 0.5 mg PRN 1X PRN IV BRADYCARDIA; Start 01/23/19 at 19:30 Fentanyl Citrate (Fentanyl 2ml Vial) 100 mcg 1X ONCE IV Last administered on 01/23/19at 20:27; Start 01/23/19 at 19:45; Stop 01/23/19 at 20:25; Status DC Midazolam HCl (Versed) 2 mg 1X ONCE IV ; Start 01/23/19 at 19:45; Stop 01/23/19 at 20:25; Status DC Magnesium Sulfate/ Dextrose 100 ml @ 100 mls/hr 1X ONCE IV Last administered on 01/23/19at 20:46; Start 01/23/19 at 19:45; Stop 01/23/19 at 20:44; Status DC Heparin Sodium (Porcine) (Heparin Sodium) 5,000 unit BID SQ Last administered on 01/26/19 08:40; Start 01/23/19 at 21:00 Pantoprazole Sodium (PROTONIX VIAL for IV PUSH) 40 mg DAILY IVP Last administered on 01/26/19 08:40; Start 01/24/19 at 09:00 Fentanyl Citrate 30 ml @ 0 mls/hr CONT PRN IV PER PROTOCOL. Last administered on 01/25/19 16:54; Start 01/23/19 at 19:45; Stop 01/26/19 at 01:00; Status DC Propofol 100 ml @ 0 mls/hr CONT PRN IV PER PROTOCOL.; Start 01/23/19 at 19:45; Stop 01/26/19 at 01:00; Status DC Midazolam HCl 100 ml @ 0 mls/hr CONT PRN IV PER PROTOCOL. Last administered on 01/25/19at 23:11; Start 01/23/19 at 19:45; Stop 01/26/19 at 01:00; Status DC Vecuronium [place] (Norcuron Bolus) 7 mg PRN Q1HR PRN IV SHIVERING Last administered on 01/24/19at 21:19; Start 01/23/19 at 19:45 Norepinephrine Bitartrate 250 ml @ 13.608 mls/ hr CONT PRN IV SEE I/O RECORD; Start 01/23/19 at 20:45 Sodium Chloride 500 ml @ 500 mls/hr 1X ONCE IV Last administered on 01/23/19at 20:57; Start 01/23/19 at 20:45; Stop 01/23/19 at 21:44; Status DC Daptomycin 440 mg/ Sodium Chloride 50 ml @ 100 mls/hr Q24H IV Last administered on 01/25/19at 23:11; Start 01/23/19 at 23:00; Stop 01/26/19 at 07:52; Status DC Linezolid/Dextrose 300 ml @ 300 mls/hr Q12HR IV Last administered on 01/25/19at 21:03; Start 01/24/19 at 09:00; Stop 01/26/19 at 07:52; Status DC Doxycycline Hyclate 100 mg/ Dextrose 100 ml @ 50 mls/hr Q12HR IV Last administered on 01/26/19at 08:40; Start 01/24/19 at 09:00 Doxycycline Hyclate 100 mg/ Dextrose 100 ml @ 50 mls/hr 1X ONCE IV Last administered on 01/23/19at 23:42; Start 01/23/19 at 23:30; Stop 01/24/19 at 01:29; Status DC Linezolid/Dextrose 300 ml @ 300 mls/hr ONCE ONCE IV Last administered on 01/23/19at 23:42; Start 01/23/19 at 23:00; Stop 01/23/19 at 23:59; Status DC Insulin Human Regular 150 unit/ Sodium Chloride 151.5 ml @ 0 mls/hr CONT PRN IV SEE I/O RECORD; Start 01/23/19 at 23:15; Stop 01/26/19 at 08:41; Status DC Magnesium Sulfate 50 ml @ 25 mls/hr 1X ONCE IV Last administered on 01/24/19at 08:29; Start 01/24/19 at 06:45; Stop 01/24/19 at 08:44; Status DC Piperacillin Sod/ Tazobactam Sod 3.375 gm/Sodium Chloride 50 ml @ 100 mls/hr Q6HRS IV Last administered on 01/26/19at 06:00; Start 01/24/19 at 08:00 Atorvastatin Calcium (Lipitor) 20 mg QHS PO Last administered on 01/25/19at 21:03; Start 01/24/19 at 21:00 Sodium Chloride 1,000 ml @ 100 mls/hr Q10H IV Last administered on 01/26/19at 04:56; Start 01/24/19 at 11:45 Amiodarone HCl 900 mg/Dextrose 518 ml @ 17 mls/hr 30H29M IV ; Start 01/24/19 at 15:00; Status Cancel Magnesium Sulfate/ Dextrose 100 ml @ 100 mls/hr 1X ONCE IV Last administered on 01/24/19at 13:52; Start 01/24/19 at 13:30; Stop 01/24/19 at 14:29; Status DC Lidocaine/Sodium Bicarbonate (Buffered Lidocaine 1%) 3 ml STK-MED ONCE .ROUTE ; Start 01/24/19 at 15:03; Stop 01/24/19 at 15:04; Status DC Amiodarone HCl 900 mg/Dextrose 518 ml @ 33 mls/hr CONT PRN IV SEE I/O RECORD Last administered on 01/24/19at 16:09; Start 01/24/19 at 16:30; Stop 01/24/19 at 16:30; Status DC Potassium Chloride/Water 100 ml @ 100 mls/hr Q1H IV ; Start 01/25/19 at 09:00; Stop 01/25/19 at 10:06; Status DC Amiodarone HCl 450 mg/Dextrose 259 ml @ 17.267 mls/ hr CONT PRN IV SEE I/O RECORD Last administered on 01/26/19at 04:56; Start 01/25/19 at 13:15 Fentanyl Citrate 30 ml @ 0 mls/hr CONT PRN IV SEE PROTOCOL Last administered on 01/26/19at 04:51; Start 01/26/19 at 01:00 Propofol 100 ml @ 0 mls/hr CONT PRN IV SEE PROTOCOL; Start 01/26/19 at 01:00 Midazolam HCl 100 ml @ 0 mls/hr CONT PRN IV SEE PROTOCOL; Start 01/26/19 at 01:00 Lorazepam (Ativan Inj) 2 mg PRN Q4HRS PRN IV ANXIETY / AGITATION; Start 01/26/19 at 08:45 Morphine Sulfate (Morphine Sulfate) 2 mg PRN Q2HR PRN IV PAIN; Start 01/26/19 at 08:45 Vitals/I & O Vital Sign - Last 24 Hours 01/25/19 01/25/19 01/25/19 01/25/19 09:53 10:00 10:30 10:32 Temp 93.6 93.6 Pulse 51 50 Resp 24 24 24 B/P (MAP) 117/64 112/57 Pulse Ox 100 100 100 100 O2 Delivery Ventilator Ventilator Ventilator Ventilator 01/25/19 01/25/19 01/25/19 01/25/19 11:00 11:58 12:00 12:00 Temp 93.8 94.2 Pulse 50 50 Resp 24 24 B/P (MAP) 114/65 107/59 Pulse Ox 100 100 100 O2 Delivery Ventilator Ventilator Ventilator Mechanical Ventilator 01/25/19 01/25/19 01/25/19 01/25/19 13:00 14:00 15:00 15:28 Temp 94.0 94.2 94.5 Pulse 48 50 50 Resp 24 24 24 B/P (MAP) 97/55 109/57 109/57 Pulse Ox 100 100 100 100 O2 Delivery Ventilator Ventilator Ventilator Ventilator 01/25/19 01/25/19 01/25/19 01/25/19 15:32 16:00 16:54 16:59 Temp 95.2 95.6 Pulse 57 66 Resp 24 24 26 B/P (MAP) 125/59 143/70 Pulse Ox 100 100 100 O2 Delivery Mechanical Ventilator Ventilator Ventilator 01/25/19 01/25/19 01/25/19 01/25/19 17:54 17:58 18:00 18:30 Temp 96.5 96.9 Pulse 62 60 Resp 24 24 24 B/P (MAP) 158/72 148/71 Pulse Ox 100 100 100 100 O2 Delivery Ventilator Ventilator Ventilator 01/25/19 01/25/19 01/25/19 01/25/19 19:00 19:30 20:00 20:00 Temp 97.0 96.9 96.9 Pulse 60 56 58 Resp 24 24 24 B/P (MAP) 136/63 136/63 151/78 Pulse Ox 100 100 100 O2 Delivery Ventilator Ventilator Ventilator Mechanical Ventilator 01/25/19 01/25/19 01/25/19 01/25/19 20:09 20:30 21:00 21:30 Temp 96.9 96.9 96.9 Pulse 60 60 64 Resp 24 24 24 B/P (MAP) 151/78 162/70 162/70 Pulse Ox 100 100 100 100 O2 Delivery Ventilator Ventilator Ventilator Ventilator 01/25/19 01/25/19 01/25/19 01/25/19 22:00 22:00 22:30 23:58 Temp 96.9 96.9 Pulse 66 62 Resp 24 24 B/P (MAP) 148/64 148/64 Pulse Ox 100 100 100 100 O2 Delivery Ventilator Ventilator Ventilator Ventilator 8/2901/26/19 01/26/19 01/26/19 23:59 00:00 01:00 02:00 Temp 97.4 97.9 97.9 Pulse 62 65 70 Resp 24 24 24 B/P (MAP) 132/63 124/56 (78) 108/70 (83) Pulse Ox 100 100 98 O2 Delivery Mechanical Ventilator Ventilator Ventilator Ventilator 01/26/19 01/26/19 01/26/19 01/26/19 02:24 03:00 04:00 04:00 Temp 98.9 98.9 Pulse 96 97 Resp 24 24 B/P (MAP) 125/76 (92) 110/75 (87) Pulse Ox 100 98 99 O2 Delivery Ventilator Ventilator Mechanical Ventilator Ventilator 01/26/19 01/26/19 01/26/19 01/26/19 04:47 04:51 05:00 05:29 Pulse 101 Resp 24 28 B/P (MAP) 117/80 (92) Pulse Ox 100 100 100 100 O2 Delivery Ventilator Ventilator Ventilator Ventilator O2 Flow Rate 15.0 01/26/19 01/26/19 01/26/19 06:00 07:10 09:31 Pulse 106 Resp 24 B/P (MAP) 99/75 (83) Pulse Ox 100 100 100 O2 Delivery Ventilator Ventilator Ventilator Intake and Output 01/25/19 01/25/19 01/26/19 14:59 22:59 06:59 Intake Total 610 ml 1611 ml 1593 ml Output Total 355 ml 210 ml 260 ml Balance 255 ml 1401 ml 1333 ml DERECK CAREY MD Jan 26, 2019 09:51
[2019-01-26 10:03] LABS: FIO2 ABG 40
--- NOTE | 2019-01-26 11:12 | PDOC ---
Renal-Progress Notes Subjective Notes Notes NONE History of Present Illness Hx of present illness STABLE Vitals Vitals Vital Signs Date Time Temp Pulse Resp B/P (MAP) Pulse Ox O2 Delivery O2 Flow Rate FiO2 01/26/19 11:03 70 24 98/70 (79) 100 Ventilator 01/26/19 04:51 15.0 01/26/19 04:00 98.9 98.9 Weight Weight [ ] I.O. Intake and Output Intake and Output 01/26/19 06:59 Intake Total 3814 ml Output Total 825 ml Balance 2989 ml IV Total 3554 ml Tube Feeding 100 ml Other 160 ml Output Urine Total 825 ml Labs Labs Laboratory Tests Test 01/26/19 00:27 01/26/19 04:30 01/26/19 08:00 Glucose (Fingerstick) 86 mg/dL (70-99) White Blood Count 11.3 x10^3/uL (4.0-11.0) Red Blood Count 4.22 x10^6/uL (4.30-5.70) Hemoglobin 13.4 g/dL (13.0-17.5) Hematocrit 39.5 % (39.0-53.0) Mean Corpuscular Volume 94 fL (79-100) Mean Corpuscular Hemoglobin 32 pg (25-35) Mean Corpuscular Hemoglobin Concent 34 g/dL (31-37) Red Cell Distribution Width 13.4 % (11.5-14.5) Platelet Count 110 x10^3/uL (140-400) Neutrophils (%) (Auto) 88 % (31-73) Lymphocytes (%) (Auto) 7 % (24-48) Monocytes (%) (Auto) 5 % (0-9) Eosinophils (%) (Auto) 0 % (0-3) Basophils (%) (Auto) 0 % (0-3) Neutrophils # (Auto) 9.9 x10^3/uL (1.8-7.7) Lymphocytes # (Auto) 0.7 x10^3/uL (1.0-4.8) Monocytes # (Auto) 0.5 x10^3/uL (0.0-1.1) Eosinophils # (Auto) 0.0 x10^3/uL (0.0-0.7) Basophils # (Auto) 0.0 x10^3/uL (0.0-0.2) Sodium Level 142 mmol/L (136-145) Potassium Level 3.9 mmol/L (3.5-5.1) Chloride Level 111 mmol/L (98-107) Carbon Dioxide Level 20 mmol/L (21-32) Anion Gap 11 (6-14) Blood Urea Nitrogen 16 mg/dL (8-26) Creatinine 0.9 mg/dL (0.7-1.3) Estimated GFR (Cockcroft-Gault) 85.0 BUN/Creatinine Ratio 18 (6-20) Glucose Level 87 mg/dL (70-99) Calcium Level 7.6 mg/dL (8.5-10.1) Magnesium Level 2.1 mg/dL (1.8-2.4) Total Bilirubin 0.8 mg/dL (0.2-1.0) Aspartate Amino Transf (AST/SGOT) 238 U/L (15-37) Alanine Aminotransferase (ALT/SGPT) 145 U/L (16-63) Alkaline Phosphatase 64 U/L (46-116) Total Protein 4.8 g/dL (6.4-8.2) Albumin 2.4 g/dL (3.4-5.0) Albumin/Globulin Ratio 1.0 (1.0-1.7) O2 Saturation 99 % (92-99) Arterial Blood pH 7.33 (7.35-7.45) Arterial Blood pCO2 at Patient Temp 38 mmHg (35-46) Arterial Blood pO2 at Patient Temp 165 mmHg (65-108) Arterial Blood HCO3 20 mmol/L (21-28) Arterial Blood Base Excess -6 mmol/L (-3-3) FiO2 40 Micro Micro Microbiology 01/23/19 Blood Culture - Preliminary, Resulted NO GROWTH AFTER 2 DAYS Physical Exam General Appearance: other (SEDATE) Skin: warm Heart: S1S2 Abdomen: soft, bowel sounds present Genitourinary: bladder flat Extremities: pulses present Neurology: other (sedated) Assessment Assessment IMP S/P CODE BLUE LACTIC ACIDOSIS-BETTER ACUTE RESP ALKALOSIS HYPOKALEMIA-CORRECTED MARIANNE -RESOLVED ACUTE HYPOXIC RESP FAILURE CAD WITH ARRHYTHMIA S/P PTCA AND STENT LEUCOCYTOSIS-REACTIVE VS INFECTION NEW DX OF DM II ABNORMAL LFT'S-PROB SHOCK LIVER PLAN MARIANNE RESOLVED WITH STABLE LYTES WILL SIGN OFF CURT CHAPMAN MD Jan 26, 2019 11:12
--- NOTE | 2019-01-26 11:45 | PDOC ---
PROGRESS NOTES Assessment Assessment Anoxia/hypoxia/metabolic encephalopathy. S/P cardiac arrest, downtime estimated on and off for 33 minutes. CAD with LCX occlusion, s/p stents placement. Respiratory failure. Hypokalemia, K+ 2.8 CHF, EF 30-35%. Lactic acidosis. Leukocytosis. Pulmonary infiltrate. Hepatic injury. Renal failure. Hematuria. Rib and sternum fracture. RECOMMENDATIONS/PLAN: Life support in ICU. HCT performed w/o ICH or SAH. Received hypothermia and warmed up. EEG to help rule out subclinic seizure.. Treat medical and cardiac diseases. HISTORY OF THE PRESENT ILLNESS: This is a 63-year-old male who was brought into the ER of [facility] via EMS because of cardiorespiratory arrest. Per ER the patient's stated that he had a syncopal episode at work on 01/23/19 and he was brought to home by his coworker. He then had vomiting around 14:29 pm with agonal respiration so his called 911. EMS arrived at the scene at 14:35 pm and the patient was found to have VF. CPR was carried out and patient received shocks and was intubated. On arrival to ER about 15:08 pm, patient had a spontaneous pulse and auto-chest compression was stopped. HCT ruled out intracranial hemorrhage, hypothermia was administrated in ICU. Patient's states he had left inguinal hernia surgery 2 weeks ago and has history of asthma without other medical problem. On 01/26/19: On vent unresponsive. Plan to hold sedation for EEG. PAST MEDICAL HISTORY Cardiovascular: HTN? Pulmonary: Asthma. Smoking. CENTRAL NERVOUS SYSTEM: No pertinent history. GI: Other (inguinal hernia) Heme/Onc: No pertinent hx Hepatobiliary: No pertinent hx Psych: No pertinent hx Musculoskeletal: Osteoarthritis Rheumatologic: No pertinent hx Infectious disease: No pertinent hx ENT: No pertinent hx Renal/: No pertinent hx Endocrine: No pertinent hx Dermatology: No pertinent hx PAST SURGICAL HISTORY Hernia Repair (left inguinal) FAMILY HISTORY Coronary Artery Disease (father) SOCIAL HISTORY Smoke: <1 pack per day ALCOHOL: none Drugs: None Lives: with Family ALLERGIES No Known Drug Allergies (Unverified , 01/23/19) MEDICATIONS: Refer to [facility] REVIEW OF SYSTEMS: Constitutional: No malnutrition, weight loss, cachexia. Head: No recent traumatic brain or head injury. Skin: No edema, or rash. Ear: No infection, tinnitus. Eyes: No vision loss or color blindness. Nose: No bleeding or purulent discharges. Hearing: No hearing decrease. Neck: No injury. Cardiac: No DE, arrhythmia,claudication. Pulmonary: Smoking.. GI: No GI ulcer, GI bleeding. Urinary/genital: No dysuria, incontinence, urinary retention. Endocrinologic: No cousin face, craniofacial dysmorphism, polydactyly. Skeletomuscular: No muscular atrophy, deformity. Neurological: see HP. Psychiatric: Denies drug use/abuse. Otherwise, not [id number] review of systems. PHYSICAL EXAMINATION: General appearance is in acute distress. HEENT: Normocephalic and nontraumatic. Eyes, nose, ears, and throat are unremarkable. Neck is supple. No lymphadenopathy. No crepitus. Cardiovascular: S1, S2. Pulmonary: On vent. Abdomen: Bowel sounds are positive. Extremities: No rash, lesions, or edema. NEUROLOGICAL EXAMINATION: On vent. Unresponsive. Not oriented to time, place and person. PERRL. EOMI not elicited. Corneal reflex not elicited. Gag and cough reflex exist by nurse. CN: no focal findings. Muscle tone: Decreased. Muscle strength: no movements to stimuli. DTR: 1-2 Plantar reflex: Neutral response bilaterally Gait: not able to walk. Sensory exam: Minimal response to pain stimuli. Not able to access cerebellar signs. F-T-N test not performed in unresponsive state. Objective Objective Vital Signs Date Time Temp Pulse Resp B/P (MAP) Pulse Ox O2 Delivery O2 Flow Rate FiO2 01/26/19 11:03 70 24 98/70 (79) 100 Ventilator 01/26/19 04:51 15.0 01/26/19 04:00 98.9 98.9 Intake and Output 01/26/19 07:00 Intake Total 3814 ml Output Total 800 ml Balance 3014 ml IV Total 3554 ml Tube Feeding 100 ml Other 160 ml Output Urine Total 800 ml Vitals Signs Vitals VS - Last 72 Hours, by Label Date Time Temp Pulse Resp B/P (MAP) Pulse Ox O2 Delivery O2 Flow Rate FiO2 01/26/19 11:03 70 24 98/70 (79) 100 Ventilator 01/26/19 10:00 87 24 105/75 (85) 100 Ventilator 01/26/19 09:49 Mechanical Ventilator 01/26/19 09:31 100 Ventilator 01/26/19 09:00 94 22 101/77 (85) 100 Ventilator 01/26/19 08:00 98 24 111/80 (90) 100 Ventilator 01/26/19 08:00 Mechanical Ventilator 01/26/19 07:10 100 Ventilator 01/26/19 07:00 100 24 99/73 (82) 100 Ventilator 01/26/19 06:00 106 24 99/75 (83) 100 Ventilator 01/26/19 05:29 100 Ventilator 01/26/19 05:00 101 28 117/80 (92) 100 Ventilator 01/26/19 04:51 24 100 Ventilator 15.0 01/26/19 04:47 100 Ventilator 01/26/19 04:00 98.9 97 24 110/75 (87) 99 Ventilator 98.9 01/26/19 04:00 Mechanical Ventilator 01/26/19 03:00 96 24 125/76 (92) 98 Ventilator 01/26/19 02:24 100 Ventilator 01/26/19 02:00 70 24 108/70 (83) 98 Ventilator 01/26/19 01:00 97.9 65 24 124/56 (78) 100 Ventilator 97.9 01/26/19 00:00 97.4 62 24 132/63 100 Ventilator 01/25/19 23:59 Mechanical Ventilator 01/25/19 23:58 100 Ventilator 01/25/19 22:30 96.9 62 24 148/64 100 Ventilator 01/25/19 22:00 96.9 66 24 148/64 100 Ventilator 01/25/19 22:00 100 Ventilator 01/25/19 21:30 96.9 64 24 162/70 100 Ventilator 01/25/19 21:00 96.9 60 24 162/70 100 Ventilator 01/25/19 20:30 96.9 60 24 151/78 100 Ventilator 01/25/19 20:09 100 Ventilator 01/25/19 20:00 Mechanical Ventilator 01/25/19 20:00 96.9 58 24 151/78 100 Ventilator 01/25/19 19:30 96.9 56 24 136/63 100 Ventilator 01/25/19 19:00 97.0 60 24 136/63 100 Ventilator 01/25/19 18:30 96.9 60 24 148/71 100 Ventilator 01/25/19 18:00 96.5 62 24 158/72 100 Ventilator 01/25/19 17:58 100 Ventilator 01/25/19 17:54 24 100 01/25/19 16:59 95.6 66 26 143/70 100 Ventilator 01/25/19 16:54 24 100 01/25/19 16:00 95.2 57 24 125/59 100 Ventilator 01/25/19 15:32 Mechanical Ventilator 01/25/19 15:28 100 Ventilator 01/25/19 15:00 94.5 50 24 109/57 100 Ventilator 01/25/19 14:00 94.2 50 24 109/57 100 Ventilator 01/25/19 13:00 94.0 48 24 97/55 100 Ventilator 01/25/19 12:00 Mechanical Ventilator 01/25/19 12:00 94.2 50 24 107/59 100 Ventilator 01/25/19 11:58 100 Ventilator 01/25/19 11:00 93.8 50 24 114/65 100 Ventilator 01/25/19 10:32 24 100 Ventilator 01/25/19 10:30 93.6 50 24 112/57 100 Ventilator 01/25/19 10:00 93.6 51 24 117/64 100 Ventilator 01/25/19 09:53 100 Ventilator 01/25/19 09:45 53 24 122/68 100 Ventilator 01/25/19 09:30 93.9 52 24 122/70 100 Ventilator 01/25/19 09:20 93.5 52 24 122/70 100 Ventilator 01/25/19 09:00 93.5 50 24 117/63 100 Ventilator 01/25/19 08:40 24 100 01/25/19 08:10 100 Ventilator 01/25/19 08:00 93.7 48 24 100/59 100 Ventilator 01/25/19 08:00 Mechanical Ventilator 01/25/19 07:00 94.3 51 24 91/50 100 Ventilator 01/25/19 07:00 93/55 (68) Laboratory Laboratory Laboratory Tests Test 01/26/19 00:27 01/26/19 04:30 01/26/19 08:00 Glucose (Fingerstick) 86 mg/dL (70-99) White Blood Count 11.3 x10^3/uL (4.0-11.0) Red Blood Count 4.22 x10^6/uL (4.30-5.70) Hemoglobin 13.4 g/dL (13.0-17.5) Hematocrit 39.5 % (39.0-53.0) Mean Corpuscular Volume 94 fL (79-100) Mean Corpuscular Hemoglobin 32 pg (25-35) Mean Corpuscular Hemoglobin Concent 34 g/dL (31-37) Red Cell Distribution Width 13.4 % (11.5-14.5) Platelet Count 110 x10^3/uL (140-400) Neutrophils (%) (Auto) 88 % (31-73) Lymphocytes (%) (Auto) 7 % (24-48) Monocytes (%) (Auto) 5 % (0-9) Eosinophils (%) (Auto) 0 % (0-3) Basophils (%) (Auto) 0 % (0-3) Neutrophils # (Auto) 9.9 x10^3/uL (1.8-7.7) Lymphocytes # (Auto) 0.7 x10^3/uL (1.0-4.8) Monocytes # (Auto) 0.5 x10^3/uL (0.0-1.1) Eosinophils # (Auto) 0.0 x10^3/uL (0.0-0.7) Basophils # (Auto) 0.0 x10^3/uL (0.0-0.2) Sodium Level 142 mmol/L (136-145) Potassium Level 3.9 mmol/L (3.5-5.1) Chloride Level 111 mmol/L (98-107) Carbon Dioxide Level 20 mmol/L (21-32) Anion Gap 11 (6-14) Blood Urea Nitrogen 16 mg/dL (8-26) Creatinine 0.9 mg/dL (0.7-1.3) Estimated GFR (Cockcroft-Gault) 85.0 BUN/Creatinine Ratio 18 (6-20) Glucose Level 87 mg/dL (70-99) Calcium Level 7.6 mg/dL (8.5-10.1) Magnesium Level 2.1 mg/dL (1.8-2.4) Total Bilirubin 0.8 mg/dL (0.2-1.0) Aspartate Amino Transf (AST/SGOT) 238 U/L (15-37) Alanine Aminotransferase (ALT/SGPT) 145 U/L (16-63) Alkaline Phosphatase 64 U/L (46-116) Total Protein 4.8 g/dL (6.4-8.2) Albumin 2.4 g/dL (3.4-5.0) Albumin/Globulin Ratio 1.0 (1.0-1.7) O2 Saturation 99 % (92-99) Arterial Blood pH 7.33 (7.35-7.45) Arterial Blood pCO2 at Patient Temp 38 mmHg (35-46) Arterial Blood pO2 at Patient Temp 165 mmHg (65-108) Arterial Blood HCO3 20 mmol/L (21-28) Arterial Blood Base Excess -6 mmol/L (-3-3) FiO2 40 Microbiology 01/23/19 Blood Culture - Preliminary, Resulted NO GROWTH AFTER 2 DAYS Medication Medications Current Medications Amiodarone HCl 450 mg/Dextrose 259 ml @ 17.267 mls/ hr CONT PRN IV SEE I/O RECORD Last administered on 01/26/19at 04:56; Start 01/25/19 at 13:15 Fentanyl Citrate 30 ml @ 0 mls/hr CONT PRN IV SEE PROTOCOL Last administered on 01/26/19at 04:51; Start 01/26/19 at 01:00 Lorazepam (Ativan Inj) 2 mg PRN Q4HRS PRN IV ANXIETY / AGITATION; Start 01/26/19 at 08:45 Midazolam HCl 100 ml @ 0 mls/hr CONT PRN IV SEE PROTOCOL; Start 01/26/19 at 01:00 Morphine Sulfate (Morphine Sulfate) 2 mg PRN Q2HR PRN IV PAIN; Start 01/26/19 at 08:45 Propofol 100 ml @ 0 mls/hr CONT PRN IV SEE PROTOCOL; Start 01/26/19 at 01:00 Comment Review of Relevant I have reviewed the following items yadi (where applicable) has been applied. ARMANDO MAHONEY MD Jan 26, 2019 11:45
--- NOTE | 2019-01-26 13:48 | PDOC ---
CARDIO Progress Notes Date and Time Date of Service 01/26/2019 Time of Evaluation 1310 Subjective Subjective: Other (intubated) Vitals Vitals Vital Signs Date Time Temp Pulse Resp B/P (MAP) Pulse Ox O2 Delivery O2 Flow Rate FiO2 01/26/19 12:58 68 22 108/72 (84) 100 Ventilator 01/26/19 04:51 15.0 01/26/19 04:00 98.9 98.9 Weight Weight [ ] Input and Output Intake and Output Intake and Output 01/26/19 06:59 Intake Total 3814 ml Output Total 825 ml Balance 2989 ml IV Total 3554 ml Tube Feeding 100 ml Other 160 ml Output Urine Total 825 ml Laboratory Labs Laboratory Tests Test 01/26/19 00:27 01/26/19 04:30 01/26/19 08:00 Glucose (Fingerstick) 86 mg/dL (70-99) White Blood Count 11.3 x10^3/uL (4.0-11.0) Red Blood Count 4.22 x10^6/uL (4.30-5.70) Hemoglobin 13.4 g/dL (13.0-17.5) Hematocrit 39.5 % (39.0-53.0) Mean Corpuscular Volume 94 fL (79-100) Mean Corpuscular Hemoglobin 32 pg (25-35) Mean Corpuscular Hemoglobin Concent 34 g/dL (31-37) Red Cell Distribution Width 13.4 % (11.5-14.5) Platelet Count 110 x10^3/uL (140-400) Neutrophils (%) (Auto) 88 % (31-73) Lymphocytes (%) (Auto) 7 % (24-48) Monocytes (%) (Auto) 5 % (0-9) Eosinophils (%) (Auto) 0 % (0-3) Basophils (%) (Auto) 0 % (0-3) Neutrophils # (Auto) 9.9 x10^3/uL (1.8-7.7) Lymphocytes # (Auto) 0.7 x10^3/uL (1.0-4.8) Monocytes # (Auto) 0.5 x10^3/uL (0.0-1.1) Eosinophils # (Auto) 0.0 x10^3/uL (0.0-0.7) Basophils # (Auto) 0.0 x10^3/uL (0.0-0.2) Sodium Level 142 mmol/L (136-145) Potassium Level 3.9 mmol/L (3.5-5.1) Chloride Level 111 mmol/L (98-107) Carbon Dioxide Level 20 mmol/L (21-32) Anion Gap 11 (6-14) Blood Urea Nitrogen 16 mg/dL (8-26) Creatinine 0.9 mg/dL (0.7-1.3) Estimated GFR (Cockcroft-Gault) 85.0 BUN/Creatinine Ratio 18 (6-20) Glucose Level 87 mg/dL (70-99) Calcium Level 7.6 mg/dL (8.5-10.1) Magnesium Level 2.1 mg/dL (1.8-2.4) Total Bilirubin 0.8 mg/dL (0.2-1.0) Aspartate Amino Transf (AST/SGOT) 238 U/L (15-37) Alanine Aminotransferase (ALT/SGPT) 145 U/L (16-63) Alkaline Phosphatase 64 U/L (46-116) Total Protein 4.8 g/dL (6.4-8.2) Albumin 2.4 g/dL (3.4-5.0) Albumin/Globulin Ratio 1.0 (1.0-1.7) O2 Saturation 99 % (92-99) Arterial Blood pH 7.33 (7.35-7.45) Arterial Blood pCO2 at Patient Temp 38 mmHg (35-46) Arterial Blood pO2 at Patient Temp 165 mmHg (65-108) Arterial Blood HCO3 20 mmol/L (21-28) Arterial Blood Base Excess -6 mmol/L (-3-3) FiO2 40 Microbiology Micro Microbiology 01/23/19 Blood Culture - Preliminary, Resulted NO GROWTH AFTER 2 DAYS Physical Exam HEENT: Neck Supple W Full Motion Chest: Symmetric LUNGS: Other (diminsihed bases) Heart: S1S2, RRR (SR) Abdomen: Other (soft) Extremities: Other (on hypothermia protocol) Neurology: other (off sedation) Assessment Assessment 1. Vfib OOH arrest: culprit is occluded LCx S/P 3 stents. 2. CAD: new as above 3. ICM: EF 30-35% 4. Acute diastolic/systolic CHF 5. Acute respiratory failure with combination of CHF and pneumonia. intubated/vent. Pulmonary following 6. Left apical pneumothorax/nondisplaced rib fractures: due to automatic CPR device device en route 7. Sepsis: ID following 8 Hypothyroidism: Defer to PCP new. TSH 10. Will need replacement defer to PCP 9. Tobaccoism 10. Substance abuse: UDS+ marijuana 11. Sinus bradycardia: no further VTs. No pauses, maintaining SR 12. Encephalopathy: multifactorial. Off sedation EEG commencing Recommendations 1. ASA/ plavix. Statin 2. Convert amiodarone to PO per OG and Start on low dose lisinopril and metoprolol 3. Lasix PRN. 4. Will eval mental state once extubated and will consider for lifevest prior to DC. ALFA GRAY CARGO CHECKER Jan 26, 2019 13:48
[2019-01-26] MEDS ORDERED: AMIODARONE HCL 200 MG TABLET. PO ONE (14:15)
--- NOTE | 2019-01-26 21:05 | EEG ---
DATE OF SERVICE: 01/26/2019 EEG NUMBER: [id number]. OBJECTIVE: This is a 63-year-old male patient who is in status post cardiopulmonary arrest. EEG was requested to help rule out subclinical seizures. METHODS: Twenty electrodes were applied according to the international 10-20 electrode placement system. EKG monitoring, hyperventilation, intermittent photic stimulation, monopolar and bipolar montages are routinely utilized. The record was obtained on a digital system with video monitoring. FINDINGS: 1. Background: The patient was recorded in the unresponsive state only. No physiological awake, drowsy, and sleep states were recorded. The overall background amplitude is variable. No well-organized posterior dominant rhythm is observed. The overall background rhythm is with diffuse slowing in the theta and delta frequencies throughout the entire recording. 2. Abnormalities: No specific epileptiform discharge or electrographic seizure is seen. Diffuse slowing in the theta and delta frequencies is throughout the entire recording. 3. Activation: Hyperventilation was not performed because the patient was in the unresponsive state. Intermittent photic stimulation was performed without photic driving. IMPRESSION: This electroencephalogram is an abnormal study for the unresponsive state only. No physiological awake, drowsy, and sleep state was recorded. Sedation was held for 4 hours before electroencephalogram. No well-organized posterior dominant rhythm is observed. The overall background rhythm is with diffuse slowing in the theta and delta frequencies throughout the entire recording. No focal, lateralizing, specific epileptiform discharge or electrographic seizure is seen. This pattern of electroencephalogram is suggestive of diffuse encephalopathy. ARMANDO MAHONEY MD DR: SHERRIE/singh JOB#: [id number] / [id number] TIFF
[2019-01-26] MEDS: METOPROLOL TART IMMED RELEASE 25 MG TABLET. PO SCH (21:07)
[2019-01-26] MEDS: ATORVASTATIN CALCIUM 20 MG TABLET PO SCH (21:07)
[2019-01-27] VITALS (24 sets, daily range): BP systolic 93–170; BP diastolic 55–98
[2019-01-27] MEDS: PIPERACILLIN/TAZOBACTAM 3.375 GM in IV NORMAL SALINE 50ML 50 ML IV SCH ×4 (05:53→23:48)
[2019-01-27] MEDS: CLOPIDOGREL BISULFATE 75 MG TABLET PO SCH (07:50)
[2019-01-27] MEDS: ASPIRIN ENTERIC COATED 325 MG TABLET.DR. PO SCH (07:50)
[2019-01-27] MEDS: LISINOPRIL 5 MG TABLET. PO SCH (07:51)
[2019-01-27] MEDS: AMIODARONE HCL 200 MG TABLET. PO SCH (07:51)
[2019-01-27] MEDS: METOPROLOL TART IMMED RELEASE 25 MG TABLET. PO SCH ×2 (07:52→21:00)
[2019-01-27] MEDS: HEPARIN for SUB-Q USE 5,000 UNIT/ML VIAL. SQ SCH ×2 (07:54→21:28)
[2019-01-27] MEDS: PANTOPRAZOLE IV PUSH 40 MG VIAL. IVP SCH (08:04)
[2019-01-27] MEDS: DOXYCYCLINE HYCLATE 100 MG in IV DEXTROSE 5% 100ML 100 ML IV SCH ×2 (08:05→21:28)
--- NOTE | 2019-01-27 08:35 | PDOC ---
Infectious Disease Note Subjective Subjective Sedated Remains intubated, FiO2 40% Tube feedings No fevers ROS ROS unobtainable Vital Sign Vital Signs Vital Signs Date Time Temp Pulse Resp B/P (MAP) Pulse Ox O2 Delivery O2 Flow Rate FiO2 01/27/19 08:06 74 103/68 01/27/19 06:00 24 100 Ventilator 01/27/19 04:03 98.7 98.7 01/27/19 04:01 15.0 Physical Exam PHYSICAL EXAM GENERAL: Orally intubated HEENT: Pupils are small, minimally reactive. ETT, OGT NECK: Supple. No JVD. LUNGS: Decreased at bases. Left chest tube HEART: S1, S2. ABDOMEN: Minimally distended, + BS bowel sounds. He has a well-approximated incision in the left lower quadrant. GENITOURINARY: العلي is in place. EXTREMITIES: No clubbing or cyanosis. No gross edema. SCDs SKIN: Warm to touch without signs of rash. NEUROLOGICAL: Sedated, opens eyes some to voice PIVs are clean Labs Lab Laboratory Tests Test 01/26/19 23:56 Glucose (Fingerstick) 124 mg/dL (70-99) Micro Microbiology 01/23/19 Blood Culture - Preliminary, Resulted NO GROWTH AFTER 3 DAYS Objective Assessment Sepsis - POA 01/23 -Blood cults neg so far. No pressors- procal 0.4 01/24 Pneumonia -LLL infiltrate and interstitial opacities -mycoplasma - neg S/p Out of hospital Cardiac arrest 01/23 with Left circumflex occlusion s/p Cath and 3 stents 01/23 Leukocytosis - Bandemia - better S/p recent LLQ hernia repair - incision is clean Small left apical pneumothorax - s/p cath placement 01/24 Vfib arrest - on amiodarone Elevated TSH - nml Free T4 Transaminitis - ? reactive - better Diffuse small bowel thickening on CT Plan Plan of Care Cont Zosyn for potential aspiration/? abdominal and CAP. Cont Doxy for atypicals and given Afib avoid quinolones/macrolides Off dapto & Zyvox F/u legionella antigens and sputum cult F/u labs and cults D/w at bedside Critically ill Patient seen and examined. Chart reviewed in detail. Case discussed with REQUIREMENTS ENGINEER. Agree with above plan. MARILEE RENTERIA APRN Jan 27, 2019 08:35 DARREN HAN MD Jan 27, 2019 20:16
[2019-01-27 08:46] LABS: BASE EXCESS ABG -2 mmol/L (-3-3); HCO3 ABG 22 mmol/L (21-28); PCO2 ABG 35 mmHg (35-46); PO2 ABG 165 mmHg (65-108); SAT O2 ABG 99 % (92-99)
--- NOTE | 2019-01-27 09:45 | RAD ---
PORTABLE CHEST 1V History: Respiratory failure Endotracheal tube and endogastric tube, and left chest wall port are redemonstrated. No evidence of pneumothorax. No pleural effusion. No new consolidating infiltrate. Mild atelectatic changes are seen similar. IMPRESSION: Similar appearance of the chest.. Electronically signed by: Asael Carrion MD (01/27/2019 9:42 AM) [facility]
--- NOTE | 2019-01-27 09:55 | PDOC ---
PULMONARY PROGRESS NOTES Subjective OFF SEDATION FOR A WHILE YESTERDAY COMPLETED HYPOTHERMIC PROTOCOL RESPONSE TO STERNAL RUB HAS GAG REFLEX CHEST TUBE NO AIR LEAK Vitals Vital Signs Date Time Temp Pulse Resp B/P (MAP) Pulse Ox O2 Delivery O2 Flow Rate FiO2 01/27/19 08:32 99 Ventilator 01/27/19 08:06 74 103/68 01/27/19 08:00 15.0 01/27/19 06:00 24 01/27/19 04:03 98.7 98.7 HEENT: Other (ET TUBE) Lungs: Crackles Cardiovascular: S1, S2 Abdomen: Soft Extremities: Other (EDEMA) Skin: Warm Labs Laboratory Tests Test 01/26/19 00:27 01/26/19 04:30 01/26/19 08:00 01/26/19 23:56 Glucose (Fingerstick) 86 mg/dL (70-99) 124 mg/dL (70-99) White Blood Count 11.3 x10^3/uL (4.0-11.0) Red Blood Count 4.22 x10^6/uL (4.30-5.70) Hemoglobin 13.4 g/dL (13.0-17.5) Hematocrit 39.5 % (39.0-53.0) Mean Corpuscular Volume 94 fL (79-100) Mean Corpuscular Hemoglobin 32 pg (25-35) Mean Corpuscular Hemoglobin Concent 34 g/dL (31-37) Red Cell Distribution Width 13.4 % (11.5-14.5) Platelet Count 110 x10^3/uL (140-400) Neutrophils (%) (Auto) 88 % (31-73) Lymphocytes (%) (Auto) 7 % (24-48) Monocytes (%) (Auto) 5 % (0-9) Eosinophils (%) (Auto) 0 % (0-3) Basophils (%) (Auto) 0 % (0-3) Neutrophils # (Auto) 9.9 x10^3/uL (1.8-7.7) Lymphocytes # (Auto) 0.7 x10^3/uL (1.0-4.8) Monocytes # (Auto) 0.5 x10^3/uL (0.0-1.1) Eosinophils # (Auto) 0.0 x10^3/uL (0.0-0.7) Basophils # (Auto) 0.0 x10^3/uL (0.0-0.2) Sodium Level 142 mmol/L (136-145) Potassium Level 3.9 mmol/L (3.5-5.1) Chloride Level 111 mmol/L (98-107) Carbon Dioxide Level 20 mmol/L (21-32) Anion Gap 11 (6-14) Blood Urea Nitrogen 16 mg/dL (8-26) Creatinine 0.9 mg/dL (0.7-1.3) Estimated GFR (Cockcroft-Gault) 85.0 BUN/Creatinine Ratio 18 (6-20) Glucose Level 87 mg/dL (70-99) Calcium Level 7.6 mg/dL (8.5-10.1) Magnesium Level 2.1 mg/dL (1.8-2.4) Total Bilirubin 0.8 mg/dL (0.2-1.0) Aspartate Amino Transf (AST/SGOT) 238 U/L (15-37) Alanine Aminotransferase (ALT/SGPT) 145 U/L (16-63) Alkaline Phosphatase 64 U/L (46-116) Total Protein 4.8 g/dL (6.4-8.2) Albumin 2.4 g/dL (3.4-5.0) Albumin/Globulin Ratio 1.0 (1.0-1.7) O2 Saturation 99 % (92-99) Arterial Blood pH 7.33 (7.35-7.45) Arterial Blood pCO2 at Patient Temp 38 mmHg (35-46) Arterial Blood pO2 at Patient Temp 165 mmHg (65-108) Arterial Blood HCO3 20 mmol/L (21-28) Arterial Blood Base Excess -6 mmol/L (-3-3) FiO2 40 Laboratory Tests Test 01/26/19 23:56 Glucose (Fingerstick) 124 mg/dL (70-99) Impression . 1. Acute respiratory failure secondary to [id number] cardiopulmonary arrest. 2. [id number] cardiopulmonary arrest. 3. Ventricular fibrillation. 4. Coronary artery disease. 5. Ischemic cardiomyopathy with ejection fraction of 30-35%. 6. Status post stent placement to the left circumflex. 7. [id number] diastolic heart failure. 8. Possible pneumonia/aspiration. 9. Left traumatic pneumothorax. 10. Elevated liver chemistries. 11. Acute renal failure. 12. Hypothyroidism. 13. Tobacco dependent. 14. Positive drug screen. 15/ POSSIBLE ANOXIC ENCEPHALOPATHY Plan . D/C SEDATION POSSIBLE WEAN WITH PS SPOKE WITH HE NEEDS TIME TO IMPROVE ABG NOTED CXR NO PTX NO AIRLEAK WITH CHEST TUBE D/W RN AND RT ANTIBX PER ID FOLLOW CARD INPUT CCT 30 MIN FORMULATING A PLAN, REVIEWING DATA. LABS, CXR JOE WHITE MD Jan 27, 2019 09:55
[2019-01-27] MEDS: IV NORMAL SALINE 1000ML BAG 1,000 ML IV SCH ×3 (11:01→20:19)
--- NOTE | 2019-01-27 11:09 | PDOC ---
PROGRESS NOTES Chief Complaint Chief Complaint CAD s/p stat PCI/LHC with stents to left circ (x 3 stents) s/p out of hospital cardiac arrest, V Fib with ROSC after 33 mins CPR and 5 defibrillations given Post intubation APICAL PTX s/p chest tube (01/24) Respi failure sec to above # 1 on IPPV Asthma SIRS sec to # 1, no infection REactive leukocytosis CRITCAL hypokalemia, 2,8 HYPERmagnesemia 2.7 MARIANNE post code MIld hypochloremia 101 History of Present Illness History of Present Illness intubated, sedation coming down and he is awake, calm , nodding and seems to understand Rewarmed and now normothermic at bedside HE opens his eyes and recognizes the Neuro status post code seems to be intact, or at least promising s/p chest tube on the left because of inc size of apical ptx post code and on IPPV abg pH 7.33 with good Co2 and O2 s/p PCI too by cards x 1 on day of admission PLAn: vent weaning per pulmo, could be today ON dapto, doxy, zosyn and fentanyl per iD dc insulin gtt (clean up jul) FULL CODE Dw at bedside and HUMAN [employer] Vitals Vitals Vital Signs Date Time Temp Pulse Resp B/P (MAP) Pulse Ox O2 Delivery O2 Flow Rate FiO2 01/27/19 08:32 99 Ventilator 01/27/19 08:06 74 103/68 01/27/19 08:00 15.0 01/27/19 06:00 24 01/27/19 04:03 98.7 98.7 Physical Exam Physical Exam GENERAL: Orally intubated HEENT: Pupils are small, minimally reactive. ETT, OGT NECK: Supple. No JVD. LUNGS: Decreased at bases. Left chest tube HEART: S1, S2. ABDOMEN: Minimally distended, + BS bowel sounds. He has a well-approximated incision in the left lower quadrant. GENITOURINARY: العلي is in place. EXTREMITIES: No clubbing or cyanosis. No gross edema. SCDs SKIN: Warm to touch without signs of rash. NEUROLOGICAL: Sedated, opens eyes some to voice PIVs are clean General: No acute distress, Other (SEDATED) Heart: Regular rate, Normal S1, Normal S2, No murmurs, Other (IRREGULAR) Lungs: Crackles Abdomen: Normal bowel sounds, Soft, No tenderness, Other (HYPOACTIVE) Extremities: No clubbing, No cyanosis, No edema, Normal pulses Skin: No breakdown, No significant lesion Labs LABS Laboratory Tests Test 01/26/19 23:56 Glucose (Fingerstick) 124 mg/dL (70-99) Review of Systems Review of Systems intubated Assessment and Plan Assessmemt and Plan Problems Medical Problems: (1) Cardiorespiratory arrest Status: Acute (2) Elevated liver function tests Status: Acute (3) Elevated troponin Status: Acute (4) Hyperglycemia Status: Acute (5) Hypokalemia Status: Acute (6) Metabolic acidosis Status: Acute (7) Renal insufficiency Status: Acute (8) Ribs, multiple fractures Status: Acute (9) Severe sepsis Status: Acute (10) STEMI (ST elevation myocardial infarction) Status: Acute (11) Traumatic pneumothorax Status: Acute Comment Review of Relevant I have reviewed the following items yadi (where applicable) has been applied. Labs Laboratory Tests Test 01/26/19 00:27 01/26/19 04:30 01/26/19 08:00 01/26/19 23:56 Glucose (Fingerstick) 86 mg/dL (70-99) 124 mg/dL (70-99) White Blood Count 11.3 x10^3/uL (4.0-11.0) Red Blood Count 4.22 x10^6/uL (4.30-5.70) Hemoglobin 13.4 g/dL (13.0-17.5) Hematocrit 39.5 % (39.0-53.0) Mean Corpuscular Volume 94 fL (79-100) Mean Corpuscular Hemoglobin 32 pg (25-35) Mean Corpuscular Hemoglobin Concent 34 g/dL (31-37) Red Cell Distribution Width 13.4 % (11.5-14.5) Platelet Count 110 x10^3/uL (140-400) Neutrophils (%) (Auto) 88 % (31-73) Lymphocytes (%) (Auto) 7 % (24-48) Monocytes (%) (Auto) 5 % (0-9) Eosinophils (%) (Auto) 0 % (0-3) Basophils (%) (Auto) 0 % (0-3) Neutrophils # (Auto) 9.9 x10^3/uL (1.8-7.7) Lymphocytes # (Auto) 0.7 x10^3/uL (1.0-4.8) Monocytes # (Auto) 0.5 x10^3/uL (0.0-1.1) Eosinophils # (Auto) 0.0 x10^3/uL (0.0-0.7) Basophils # (Auto) 0.0 x10^3/uL (0.0-0.2) Sodium Level 142 mmol/L (136-145) Potassium Level 3.9 mmol/L (3.5-5.1) Chloride Level 111 mmol/L (98-107) Carbon Dioxide Level 20 mmol/L (21-32) Anion Gap 11 (6-14) Blood Urea Nitrogen 16 mg/dL (8-26) Creatinine 0.9 mg/dL (0.7-1.3) Estimated GFR (Cockcroft-Gault) 85.0 BUN/Creatinine Ratio 18 (6-20) Glucose Level 87 mg/dL (70-99) Calcium Level 7.6 mg/dL (8.5-10.1) Magnesium Level 2.1 mg/dL (1.8-2.4) Total Bilirubin 0.8 mg/dL (0.2-1.0) Aspartate Amino Transf (AST/SGOT) 238 U/L (15-37) Alanine Aminotransferase (ALT/SGPT) 145 U/L (16-63) Alkaline Phosphatase 64 U/L (46-116) Total Protein 4.8 g/dL (6.4-8.2) Albumin 2.4 g/dL (3.4-5.0) Albumin/Globulin Ratio 1.0 (1.0-1.7) O2 Saturation 99 % (92-99) Arterial Blood pH 7.33 (7.35-7.45) Arterial Blood pCO2 at Patient Temp 38 mmHg (35-46) Arterial Blood pO2 at Patient Temp 165 mmHg (65-108) Arterial Blood HCO3 20 mmol/L (21-28) Arterial Blood Base Excess -6 mmol/L (-3-3) FiO2 40 Laboratory Tests Test 01/26/19 23:56 Glucose (Fingerstick) 124 mg/dL (70-99) Microbiology 01/23/19 Blood Culture - Preliminary, Resulted NO GROWTH AFTER 3 DAYS Medications Current Medications Sodium Chloride 1,000 ml @ 1,000 mls/hr Q1H IV Last administered on 01/23/19at 17:23; Start 01/23/19 at 15:13; Stop 01/23/19 at 16:12; Status DC Sodium Bicarbonate (Sodium Bicarb Adult 8.4% Syr) 100 meq 1X ONCE IV Last administered on 01/23/19at 17:23; Start 01/23/19 at 15:30; Stop 01/23/19 at 15:59; Status DC Midazolam HCl (Versed) 5 mg STK-MED ONCE .ROUTE ; Start 01/23/19 at 15:25; Stop 01/23/19 at 15:25; Status DC Propofol 50 ml @ As Directed STK-MED ONCE IV ; Start 01/23/19 at 15:25; Stop 01/23/19 at 15:25; Status DC Calcium Gluconate (Calcium Gluconate) 1,000 mg 1X ONCE IVP Last administered o n 01/23/19at 16:12; Start 01/23/19 at 16:00; Stop 01/23/19 at 16:01; Status DC Dextrose (Dextrose 50%-Water Syringe) 25 gm 1X ONCE IV ; Start 01/23/19 at 15:45; Stop 01/23/19 at 15:53; Status DC Insulin Human Regular (HumuLIN R VIAL) 10 unit 1X ONCE IV ; Start 01/23/19 at 15:45; Stop 01/23/19 at 15:53; Status DC Iohexol (Omnipaque 350 Mg/ml) 90 ml 1X ONCE IV Last administered on 01/23/19at 16:08; Start 01/23/19 at 15:45; Stop 01/23/19 at 16:00; Status DC Amiodarone HCl 900 mg/Dextrose 518 ml @ 0 mls/hr CONT PRN IV SEE I/O RECORD Last administered on 01/23/19at 17:06; Start 01/23/19 at 16:00; Stop 01/23/19 at 17:06; Status DC Piperacillin Sod/ Tazobactam Sod 3.375 gm/Sodium Chloride 50 ml @ 100 mls/hr 1X ONCE IV Last administered on 01/23/19at 22:19; Start 01/23/19 at 16:00; Stop 01/23/19 at 16:29; Status DC Vancomycin HCl 250 ml @ 250 mls/hr 1X ONCE IV ; Start 01/23/19 at 16:00; Stop 01/23/19 at 16:24; Status DC Fentanyl Citrate (Fentanyl 2ml Vial) 100 mcg 1X ONCE IV ; Start 01/23/19 at 16:15; Stop 01/23/19 at 16:24; Status DC Midazolam HCl (Versed) 2 mg 1X ONCE IV ; Start 01/23/19 at 16:15; Stop 01/23/19 at 16:24; Status DC Magnesium Sulfate/ Dextrose 100 ml @ 100 mls/hr 1X ONCE IV ; Start 01/23/19 at 16:15; Stop 01/23/19 at 17:14; Status DC Buspirone HCl (Buspar) 30 mg Q8H NG Last administered on 01/25/19at 08:47; Start 01/23/19 at 17:00; Stop 01/25/19 at 09:01; Status DC Acetaminophen (Tylenol) 650 mg Q4H NG Last administered on 01/25/19at 11:11; Start 01/23/19 at 16:15; Stop 01/26/19 at 01:00; Status DC Artificial Tears (Artificial Tears) 1 drop Q6HRS OU Last administered on 01/25/19at 23:53; Start 01/23/19 at 18:00; Stop 01/26/19 at 01:00; Status DC Artificial Tears (Artificial Tears) 1 drop PRN Q15MIN PRN OU DRY EYE; Start 01/23/19 at 16:15; Stop 01/26/19 at 01:00; Status DC Heparin Sodium (Porcine) (Heparin Sodium) 5,000 unit BID SQ ; Start 01/23/19 at 21:00; Stop 01/23/19 at 16:53; Status DC Pantoprazole Sodium (PROTONIX VIAL for IV PUSH) 40 mg DAILY IVP ; Start 01/24/19 at 09:00; Stop 01/23/19 at 20:27; Status DC Fentanyl Citrate 30 ml @ 0 mls/hr CONT PRN IV PER PROTOCOL.; Start 01/23/19 at 16:15; Stop 01/23/19 at 18:01; Status DC Propofol 100 ml @ 0 mls/hr CONT PRN IV PER PROTOCOL.; Start 01/23/19 at 16:15; Stop 01/23/19 at 20:27; Status DC Midazolam HCl 100 ml @ 0 mls/hr CONT PRN IV PER PROTOCOL. Last administered on 01/23/19at 16:50; Start 01/23/19 at 16:15; Stop 01/23/19 at 20:26; Status DC Vecuronium [place] (Norcuron Bolus) 7 mg PRN Q1HR PRN IV SHIVERING; Start 01/23/19 at 16:15; Stop 01/23/19 at 20:28; Status DC Pantoprazole Sodium (PROTONIX VIAL for IV PUSH) 40 mg DAILYAC IVP ; Start at 07:30; Stop 01/23/19 at 16:25; Status DC Pantoprazole Sodium (PROTONIX VIAL for IV PUSH) 40 mg 1X ONCE IVP Last adminis tered on 01/23/19at 23:43; Start 01/23/19 at 17:00; Stop 01/23/19 at 17:01; Status DC Enoxaparin Sodium (Lovenox 40mg Syringe) 40 mg Q24H SQ ; Start 01/23/19 at 21:00; Stop 01/23/19 at 23:59; Status DC Sodium Chloride 1,000 ml @ 150 mls/hr Q6H40M IV Last administered on 01/24/19at 04:43; Start 01/23/19 at 16:11; Stop 01/24/19 at 11:40; Status DC Potassium Chloride/Water 100 ml @ 100 mls/hr Q1H IV Last administered on 01/23/19at 19:06; Start 01/23/19 at 17:00; Stop 01/23/19 at 20:59; Status DC Potassium Chloride/Water 100 ml @ 100 mls/hr Q1H IV ; Start 01/23/19 at 22:00; Stop 01/23/19 at 23:59; Status DC Vancomycin HCl 1.75 gm/Sodium Chloride 500 ml @ 250 mls/hr 1X ONCE IV Last administered on 01/23/19at 23:42; Start 01/23/19 at 18:00; Stop 01/23/19 at 19:59; Status DC Aspirin (Aspirin Rectal Supp) 300 mg 1X ONCE TN Last administered on 01/23/19at 20:27; Start 01/23/19 at 17:00; Stop 01/23/19 at 17:01; Status DC Lidocaine HCl (Lidocaine 1% 20ml Vial) 20 ml STK-MED ONCE .ROUTE ; Start 01/23/19 at 16:37; Stop 01/23/19 at 16:37; Status DC Heparin Sodium/ Sodium Chloride 1,000 ml @ As Directed STK-MED ONCE .ROUTE ; Start 01/23/19 at 16:37; Stop 01/23/19 at 16:38; Status DC Heparin Sodium/ Dextrose 500 ml @ 0 mls/hr CONT PRN IV SEE I/O RECORD; Start 01/23/19 at 17:00; Stop 01/23/19 at 23:27; Status DC Midazolam HCl (Versed) 5 mg STK-MED ONCE .ROUTE ; Start 01/23/19 at 17:00; Stop 01/23/19 at 17:00; Status DC Sodium Chloride 1,000 ml @ 1,000 mls/hr 1X ONCE IV Last administered on 01/23/19at 18:58; Start 01/23/19 at 17:30; Stop 01/23/19 at 18:29; Status DC Propofol 50 ml @ 2.1 mls/hr 1X STAT IV Last administered on 01/23/19at 18:51; Start 01/23/19 at 17:17; Stop 01/23/19 at 20:27; Status DC Midazolam HCl (Versed) 5 mg 1X ONCE IV Last administered on 01/23/19at 18:18; Start 01/23/19 at 17:30; Stop 01/23/19 at 17:31; Status DC Fentanyl Citrate 30 ml @ 0 mls/hr CONT PRN PRN IV PER PROTOCOL; Start 01/23/19 at 17:45; Status Cancel Naloxone HCl (Narcan) 0.4 mg PRN Q2MIN PRN IV SEE INSTRUCTIONS; Start 01/23/19 at 17:45 Sodium Chloride 1,000 ml @ 25 mls/hr Q24H IV Last administered on 01/26/19at 15:11; Start 01/23/19 at 17:33 Midazolam HCl (Versed) 5 mg 1X ONCE IV Last administered on 01/23/19at 19:02; Start 01/23/19 at 18:15; Stop 01/23/19 at 18:16; Status DC Amiodarone HCl (Cordarone) 150 mg STK-MED ONCE .ROUTE ; Start 01/23/19 at 18:11; Stop 01/23/19 at 18:12; Status DC Iodixanol (Visipaque 320) 100 ml STK-MED ONCE .ROUTE ; Start 01/23/19 at 18:19; Stop 01/23/19 at 18:19; Status DC Bivalirudin (Angiomax) 250 mg STK-MED ONCE IV ; Start 01/23/19 at 18:20; Stop 01/23/19 at 18:20; Status DC Nitroglycerin (Nitroglycerin) 200 mcg 1X ONCE IART Last administered on 01/23/19at 19:10; Start 01/23/19 at 18:45; Stop 01/23/19 at 18:56; Status DC Heparin Sodium/ Sodium Chloride (HEPARIN for ARTERIAL LINE FLUSH) 1,000 unit 1X ONCE IART Last administered on 01/23/19 19:10; Start 01/23/19 at 18:45; Stop 01/23/19 at 18:56; Status DC Heparin Sodium/ Sodium Chloride (HEPARIN for ARTERIAL LINE FLUSH) 1,000 unit 1X ONCE IART Last administered on 01/23/19 19:10; Start 01/23/19 at 18:45; Stop 01/23/19 at 18:56; Status DC Iodixanol (Visipaque 320) 100 ml 1X ONCE IART Last administered on 01/23/19 19:10; Start 01/23/19 at 18:45; Stop 01/23/19 at 18:56; Status DC Bivalirudin (Angiomax) 250 mg 1X ONCE IV Last administered on 01/23/19at 19:10; Start 01/23/19 at 18:45; Stop 01/23/19 at 18:56; Status DC Lidocaine HCl (Lidocaine 1% 20ml Vial) 10 ml 1X ONCE INJ Last administered on 01/23/19 19:10; Start 01/23/19 at 18:45; Stop 01/23/19 at 18:56; Status DC Amiodarone HCl 150 mg/Dextrose 103 ml @ 0 mls/hr 1X ONCE IV Last administered on 01/23/19at 19:10; Start 01/23/19 at 19:00; Stop 01/23/19 at 19:01; Status DC Info (CONTRAST GIVEN -- Rx MONITORING) 1 each PRN DAILY PRN MC SEE COMMENTS; Start 01/23/19 at 19:00; Stop 01/25/19 at 18:59; Status DC Heparin Sodium/ Sodium Chloride 500 ml @ As Directed STK-MED ONCE .ROUTE ; Start 01/23/19 at 19:02; Stop 01/23/19 at 19:03; Status DC Sodium Chloride (Normal Saline Flush) 3 ml QSHIFT PRN IV AFTER MEDS AND BLOOD DRAWS; Start 01/23/19 at 19:30 Sodium Chloride 1,000 ml @ 75 mls/hr [id number] IV Last administered on 01/23/19at 20:27; Start 01/23/19 at 19:17; Stop 01/24/19 at 03:16; Status DC Aspirin (Ecotrin) 325 mg DAILYWBKFT PO Last administered on 01/27/19at 08:06; Start 01/24/19 at 08:00 Clopidogrel Bisulfate (Plavix) 75 mg DAILYWBKFT PO Last administered on 01/27/19at 08:06; Start 01/24/19 at 08:00 Acetaminophen (Tylenol) 650 mg PRN Q6HRS PRN PO MILD PAIN / TEMP Last administered on 01/27/19at 11:01; Start 01/23/19 at 19:30 Fentanyl Citrate (Fentanyl 2ml Vial) 50 mcg PRN Q1HR PRN IV MODERATE OR SEVERE PAIN; Start 01/23/19 at 19:30; Stop 01/26/19 at 00:59; Status DC Nitroglycerin (Nitrostat) 0.4 mg PRN Q5MIN PRN SL CHEST PAIN; Start 01/23/19 at 19:30 Amiodarone HCl 150 mg/Dextrose 103 ml @ 600 mls/hr 1X PRN PRN IV FOR VENTRICULAR TACHYCARDIA; Start 01/23/19 at 19:30 Lidocaine HCl (Lidocaine HCl 2% Abboject) 100 mg 1X PRN PRN IV FOR VENTRICULAR TACHYCARDIA; Start 01/23/19 at 19:30 Atropine Sulfate (ATROPINE 0.5mg SYRINGE) 0.5 mg PRN 1X PRN IV BRADYCARDIA; Start 01/23/19 at 19:30 Fentanyl Citrate (Fentanyl 2ml Vial) 100 mcg 1X ONCE IV Last administered on 01/23/19at 20:27; Start 01/23/19 at 19:45; Stop 01/23/19 at 20:25; Status DC Midazolam HCl (Versed) 2 mg 1X ONCE IV ; Start 01/23/19 at 19:45; Stop 01/23/19 at 20:25; Status DC Magnesium Sulfate/ Dextrose 100 ml @ 100 mls/hr 1X ONCE IV Last administered on 01/23/19at 20:46; Start 01/23/19 at 19:45; Stop 01/23/19 at 20:44; Status DC Heparin Sodium (Porcine) (Heparin Sodium) 5,000 unit BID SQ Last administered on 01/27/19at 08:06; Start 01/23/19 at 21:00 Pantoprazole Sodium (PROTONIX VIAL for IV PUSH) 40 mg DAILY IVP Last administered on 01/27/19at 08:06; Start 01/24/19 at 09:00 Fentanyl Citrate 30 ml @ 0 mls/hr CONT PRN IV PER PROTOCOL. Last administered on 01/25/19at 16:54; Start 01/23/19 at 19:45; Stop 01/26/19 at 01:00; Status DC Propofol 100 ml @ 0 mls/hr CONT PRN IV PER PROTOCOL.; Start 01/23/19 at 19:45; Stop 01/26/19 at 01:00; Status DC Midazolam HCl 100 ml @ 0 mls/hr CONT PRN IV PER PROTOCOL. Last administered on 01/25/19at 23:11; Start 01/23/19 at 19:45; Stop 01/26/19 at 01:00; Status DC Vecuronium [place] (Norcuron Bolus) 7 mg PRN Q1HR PRN IV SHIVERING Last administered on 01/24/19at 21:19; Start 01/23/19 at 19:45 Norepinephrine Bitartrate 250 ml @ 13.608 mls/ hr CONT PRN IV SEE I/O RECORD; Start 01/23/19 at 20:45 Sodium Chloride 500 ml @ 500 mls/hr 1X ONCE IV Last administered on 01/23/19at 20:57; Start 01/23/19 at 20:45; Stop 01/23/19 at 21:44; Status DC Daptomycin 440 mg/ Sodium Chloride 50 ml @ 100 mls/hr Q24H IV Last administered on 01/25/19at 23:11; Start 01/23/19 at 23:00; Stop 01/26/19 at 07:52; Status DC Linezolid/Dextrose 300 ml @ 300 mls/hr Q12HR IV Last administered on 01/25/19at 21:03; Start 01/24/19 at 09:00; Stop 01/26/19 at 07:52; Status DC Doxycycline Hyclate 100 mg/ Dextrose 100 ml @ 50 mls/hr Q12HR IV Last administered on 01/27/19at 08:06; Start 01/24/19 at 09:00 Doxycycline Hyclate 100 mg/ Dextrose 100 ml @ 50 mls/hr 1X ONCE IV Last administered on 01/23/19at 23:42; Start 01/23/19 at 23:30; Stop 01/24/19 at 01:29; Status DC Linezolid/Dextrose 300 ml @ 300 mls/hr ONCE ONCE IV Last administered on 01/23/19at 23:42; Start 01/23/19 at 23:00; Stop 01/23/19 at 23:59; Status DC Insulin Human Regular 150 unit/ Sodium Chloride 151.5 ml @ 0 mls/hr CONT PRN IV SEE I/O RECORD; Start 01/23/19 at 23:15; Stop 01/26/19 at 08:41; Status DC Magnesium Sulfate 50 ml @ 25 mls/hr 1X ONCE IV Last administered on 01/24/19at 08:29; Start 01/24/19 at 06:45; Stop 01/24/19 at 08:44; Status DC Piperacillin Sod/ Tazobactam Sod 3.375 gm/Sodium Chloride 50 ml @ 100 mls/hr Q6HRS IV Last administered on 01/27/19at 11:01; Start 01/24/19 at 08:00 Atorvastatin Calcium (Lipitor) 20 mg QHS PO Last administered on 01/26/19at 21:10; Start 01/24/19 at 21:00 Sodium Chloride 1,000 ml @ 100 mls/hr Q10H IV Last administered on 01/27/19at 11:01; Start 01/24/19 at 11:45 Amiodarone HCl 900 mg/Dextrose 518 ml @ 17 mls/hr 30H29M IV ; Start 01/24/19 at 15:00; Status Cancel Magnesium Sulfate/ Dextrose 100 ml @ 100 mls/hr 1X ONCE IV Last administered on 01/24/19at 13:52; Start 01/24/19 at 13:30; Stop 01/24/19 at 14:29; Status DC Lidocaine/Sodium Bicarbonate (Buffered Lidocaine 1%) 3 ml STK-MED ONCE .ROUTE ; Start 01/24/19 at 15:03; Stop 01/24/19 at 15:04; Status DC Amiodarone HCl 900 mg/Dextrose 518 ml @ 33 mls/hr CONT PRN IV SEE I/O RECORD Last administered on 01/24/19at 16:09; Start 01/24/19 at 16:30; Stop 01/24/19 at 16:30; Status DC Potassium Chloride/Water 100 ml @ 100 mls/hr Q1H IV ; Start 01/25/19 at 09:00; Stop 01/25/19 at 10:06; Status DC Amiodarone HCl 450 mg/Dextrose 259 ml @ 17.267 mls/ hr CONT PRN IV SEE I/O RECORD Last administered on 01/26/19at 04:56; Start 01/25/19 at 13:15; Stop 01/26/19 at 13:47; Status DC Fentanyl Citrate 30 ml @ 0 mls/hr CONT PRN IV SEE PROTOCOL Last administered on 01/26/19at 18:46; Start 01/26/19 at 01:00 Propofol 100 ml @ 0 mls/hr CONT PRN IV SEE PROTOCOL; Start 01/26/19 at 01:00 Midazolam HCl 100 ml @ 0 mls/hr CONT PRN IV SEE PROTOCOL Last administered on 01/27/19at 02:20; Start 01/26/19 at 01:00 Lorazepam (Ativan Inj) 2 mg PRN Q4HRS PRN IV ANXIETY / AGITATION; Start 01/26/19 at 08:45 Morphine Sulfate (Morphine Sulfate) 2 mg PRN Q2HR PRN IV PAIN; Start 01/26/19 at 08:45 Lisinopril (Prinivil) 2.5 mg DAILY PO Last administered on 01/27/19at 08:06; Start 01/27/19 at 09:00 Metoprolol Tartrate (Lopressor) 12.5 mg BID PO Last administered on 01/27/19at 08:06; Start 01/26/19 at 21:00 Amiodarone HCl (Cordarone) 400 mg DAILY PO Last administered on 01/27/19at 08:06; Start 01/27/19 at 09:00 Amiodarone HCl (Cordarone) 400 mg 1X ONCE PO Last administered on 01/26/19at 14:34; Start 01/26/19 at 14:15; Stop 01/26/19 at 14:16; Status DC Epinephrine HCl (EPINEPHrine SYRINGE) 1 mg STK-MED ONCE .ROUTE ; Start 01/23/19 at 14:47; Stop 01/26/19 at 14:48; Status DC Sodium Bicarbonate (Sodium Bicarb Adult 8.4% Syr) 100 meq STK-MED ONCE .ROUTE ; Start 01/23/19 at 14:47; Stop 01/26/19 at 14:48; Status DC Vitals/I & O Vital Sign - Last 24 Hours 01/26/19 01/26/19 01/26/19 01/26/19 12:00 12:00 12:09 12:58 Pulse 70 68 Resp 24 22 B/P (MAP) 107/70 (82) 108/72 (84) Pulse Ox 100 100 100 O2 Delivery Ventilator Mechanical Ventilator Ventilator Ventilator 01/26/19 01/26/19 01/26/19 01/26/19 13:00 14:00 14:11 14:34 Pulse 70 70 69 Resp 24 24 B/P (MAP) 107/70 (82) 110/71 (84) 110/71 Pulse Ox 100 100 100 O2 Delivery Ventilator Ventilator Ventilator 01/26/19 01/26/19 01/26/19 01/26/19 15:00 16:00 16:00 16:06 Pulse 68 72 Resp 24 24 B/P (MAP) 118/74 (89) 120/71 (87) Pulse Ox 100 100 100 O2 Delivery Ventilator Mechanical Ventilator Ventilator Ventilator 01/26/19 01/26/19 01/26/19 01/26/19 17:00 18:00 18:46 19:00 Pulse 68 68 98 Resp 24 24 24 24 B/P (MAP) 126/72 (90) 106/63 (77) 106/63 (77) Pulse Ox 100 100 100 100 O2 Delivery Ventilator Ventilator Ventilator Ventilator 01/26/19 01/26/19 01/26/19 01/26/19 19:11 19:46 19:59 20:00 Temp 99.1 99.1 Pulse 65 Resp 24 24 24 B/P (MAP) 101/75 (84) Pulse Ox 100 100 10 O2 Delivery Ventilator Ventilator Ventilator 01/26/19 01/26/19 01/26/19 01/26/19 20:00 21:00 21:10 22:00 Pulse 69 72 68 Resp 24 24 B/P (MAP) 120/76 (91) 104/66 (79) Pulse Ox 95 98 O2 Delivery Mechanical Ventilator Ventilator Ventilator O2 Flow Rate 15.0 01/26/19 01/26/19 01/27/19 01/27/19 23:00 23:17 00:00 00:00 Temp 98.8 98.8 Pulse 64 63 Resp 24 24 B/P (MAP) 97/63 (74) 93/61 (72) Pulse Ox 100 100 99 O2 Delivery Ventilator Ventilator Mechanical Ventilator Ventilator O2 Flow Rate 15.0 01/27/19 01/27/19 01/27/19 01/27/19 01:00 01:45 02:00 03:00 Pulse 67 64 68 Resp 24 24 24 B/P (MAP) 98/62 (74) 95/55 (68) 100/62 (75) Pulse Ox 100 100 98 95 O2 Delivery Ventilator Ventilator Ventilator Ventilator 01/27/19 01/27/19 01/27/19 01/27/19 03:10 04:01 04:03 05:00 Temp 98.7 98.7 Pulse 67 66 Resp 24 24 B/P (MAP) 109/68 (82) 109/71 (84) Pulse Ox 99 100 100 O2 Delivery Ventilator Mechanical Ventilator Ventilator Ventilator O2 Flow Rate 15.0 01/27/19 01/27/19 01/27/19 01/27/19 05:51 06:00 08:00 08:06 Pulse 74 74 Resp 24 B/P (MAP) 103/68 (80) 103/68 Pulse Ox 100 100 O2 Delivery Ventilator Ventilator Mechanical Ventilator O2 Flow Rate 15.0 01/27/19 01/27/19 01/27/19 08:06 08:06 08:32 Pulse 74 74 B/P (MAP) 103/68 103/68 Pulse Ox 99 O2 Delivery Ventilator Intake and Output 01/26/19 01/26/19 01/27/19 14:59 22:59 06:59 Intake Total 300 ml 2456.72 ml 2901 ml Output Total 575 ml 455 ml 475 ml Balance -275 ml 2001.72 ml 2426 ml DERECK CAREY MD Jan 27, 2019 11:09
[2019-01-27 11:28] LABS: FIO2 ABG 40
--- NOTE | 2019-01-27 13:12 | PDOC ---
PROGRESS NOTES Subjective Subjective Patient seen and examined He remains on a ventilator. Objective Objective Vital Signs Date Time Temp Pulse Resp B/P (MAP) Pulse Ox O2 Delivery O2 Flow Rate FiO2 01/27/19 12:00 99 01/27/19 08:32 Ventilator 01/27/19 08:06 74 103/68 01/27/19 08:00 15.0 01/27/19 06:00 24 01/27/19 04:03 98.7 98.7 Intake and Output 01/27/19 06:59 Intake Total 5657.72 ml Output Total 1505 ml Balance 4152.72 ml Intake Oral 0 ml IV Total 3540.72 ml Tube Feeding 1517 ml Blood Product IV Normal Saline Flush 200 ml Other 400 ml Output Urine Total 1505 ml Chest Tube Drainage Total 0 ml # Bowel Movements 1 Physical Exam Abdomen: Normal bowel sounds Heart: Regular rate General: Other (intubated and sedated.) Lungs: Other (mildly decreased breath sounds) Assessment Assessment Problems Medical Problems: (1) Cardiorespiratory arrest Status: Acute (2) Elevated liver function tests Status: Acute (3) Elevated troponin Status: Acute (4) Hyperglycemia Status: Acute (5) Hypokalemia Status: Acute (6) Metabolic acidosis Status: Acute (7) Renal insufficiency Status: Acute (8) Ribs, multiple fractures Status: Acute (9) Severe sepsis Status: Acute (10) STEMI (ST elevation myocardial infarction) Status: Acute (11) Traumatic pneumothorax Status: Acute 1. Vfib OOH arrest: culprit is occluded LCx S/P 3 stents. Continuing present treatment. Patient remains on a ventilator. 2. CAD: new as above 3. ICM: EF 30-35% 4. Acute diastolic/systolic CHF 5. Acute respiratory failure with combination of CHF and pneumonia. intubated/vent. Pulmonary following 6. Left apical pneumothorax/nondisplaced rib fractures: due to automatic CPR device device en route 7. Sepsis: ID following 8 Hypothyroidism: Defer to PCP new. TSH 10. Will need replacement defer to PCP 9. Sinus bradycardia: no further VTs. No pauses, maintaining SR 10. Encephalopathy: multifactorial. Off sedation EEG commencing Comment Review of Relevant I have reviewed the following items yadi (where applicable) has been applied. Labs Laboratory Tests Test 01/26/19 00:27 01/26/19 04:30 01/26/19 08:00 01/26/19 23:56 Glucose (Fingerstick) 86 mg/dL (70-99) 124 mg/dL (70-99) White Blood Count 11.3 x10^3/uL (4.0-11.0) Red Blood Count 4.22 x10^6/uL (4.30-5.70) Hemoglobin 13.4 g/dL (13.0-17.5) Hematocrit 39.5 % (39.0-53.0) Mean Corpuscular Volume 94 fL (79-100) Mean Corpuscular Hemoglobin 32 pg (25-35) Mean Corpuscular Hemoglobin Concent 34 g/dL (31-37) Red Cell Distribution Width 13.4 % (11.5-14.5) Platelet Count 110 x10^3/uL (140-400) Neutrophils (%) (Auto) 88 % (31-73) Lymphocytes (%) (Auto) 7 % (24-48) Monocytes (%) (Auto) 5 % (0-9) Eosinophils (%) (Auto) 0 % (0-3) Basophils (%) (Auto) 0 % (0-3) Neutrophils # (Auto) 9.9 x10^3/uL (1.8-7.7) Lymphocytes # (Auto) 0.7 x10^3/uL (1.0-4.8) Monocytes # (Auto) 0.5 x10^3/uL (0.0-1.1) Eosinophils # (Auto) 0.0 x10^3/uL (0.0-0.7) Basophils # (Auto) 0.0 x10^3/uL (0.0-0.2) Sodium Level 142 mmol/L (136-145) Potassium Level 3.9 mmol/L (3.5-5.1) Chloride Level 111 mmol/L (98-107) Carbon Dioxide Level 20 mmol/L (21-32) Anion Gap 11 (6-14) Blood Urea Nitrogen 16 mg/dL (8-26) Creatinine 0.9 mg/dL (0.7-1.3) Estimated GFR (Cockcroft-Gault) 85.0 BUN/Creatinine Ratio 18 (6-20) Glucose Level 87 mg/dL (70-99) Calcium Level 7.6 mg/dL (8.5-10.1) Magnesium Level 2.1 mg/dL (1.8-2.4) Total Bilirubin 0.8 mg/dL (0.2-1.0) Aspartate Amino Transf (AST/SGOT) 238 U/L (15-37) Alanine Aminotransferase (ALT/SGPT) 145 U/L (16-63) Alkaline Phosphatase 64 U/L (46-116) Total Protein 4.8 g/dL (6.4-8.2) Albumin 2.4 g/dL (3.4-5.0) Albumin/Globulin Ratio 1.0 (1.0-1.7) O2 Saturation 99 % (92-99) Arterial Blood pH 7.33 (7.35-7.45) Arterial Blood pCO2 at Patient Temp 38 mmHg (35-46) Arterial Blood pO2 at Patient Temp 165 mmHg (65-108) Arterial Blood HCO3 20 mmol/L (21-28) Arterial Blood Base Excess -6 mmol/L (-3-3) FiO2 40 Test 01/27/19 05:34 O2 Saturation 99 % (92-99) Arterial Blood pH 7.41 (7.35-7.45) Arterial Blood pCO2 at Patient Temp 35 mmHg (35-46) Arterial Blood pO2 at Patient Temp 165 mmHg (65-108) Arterial Blood HCO3 22 mmol/L (21-28) Arterial Blood Base Excess -2 mmol/L (-3-3) FiO2 40 Laboratory Tests Test 01/26/19 23:56 01/27/19 05:34 Glucose (Fingerstick) 124 mg/dL (70-99) O2 Saturation 99 % (92-99) Arterial Blood pH 7.41 (7.35-7.45) Arterial Blood pCO2 at Patient Temp 35 mmHg (35-46) Arterial Blood pO2 at Patient Temp 165 mmHg (65-108) Arterial Blood HCO3 22 mmol/L (21-28) Arterial Blood Base Excess -2 mmol/L (-3-3) FiO2 40 Microbiology 01/23/19 Blood Culture - Preliminary, Resulted NO GROWTH AFTER 3 DAYS Medications Current Medications Sodium Chloride 1,000 ml @ 1,000 mls/hr Q1H IV Last administered on 01/23/19at 17:23; Start 01/23/19 at 15:13; Stop 01/23/19 at 16:12; Status DC Sodium Bicarbonate (Sodium Bicarb Adult 8.4% Syr) 100 meq 1X ONCE IV Last administered on 01/23/19at 17:23; Start 01/23/19 at 15:30; Stop 01/23/19 at 15:59; Status DC Midazolam HCl (Versed) 5 mg STK-MED ONCE .ROUTE ; Start 01/23/19 at 15:25; Stop 01/23/19 at 15:25; Status DC Propofol 50 ml @ As Directed STK-MED ONCE IV ; Start 01/23/19 at 15:25; Stop 01/23/19 at 15:25; Status DC Calcium Gluconate (Calcium Gluconate) 1,000 mg 1X ONCE IVP Last administered on 01/23/19at 16:12; Start 01/23/19 at 16:00; Stop 01/23/19 at 16:01; Status DC Dextrose (Dextrose 50%-Water Syringe) 25 gm 1X ONCE IV ; Start 01/23/19 at 15:45; Stop 01/23/19 at 15:53; Status DC Insulin Human Regular (HumuLIN R VIAL) 10 unit 1X ONCE IV ; Start 01/23/19 at 15:45; Stop 01/23/19 at 15:53; Status DC Iohexol (Omnipaque 350 Mg/ml) 90 ml 1X ONCE IV Last administered on 01/23/19at 16:08; Start 01/23/19 at 15:45; Stop 01/23/19 at 16:00; Status DC Amiodarone HCl 900 mg/Dextrose 518 ml @ 0 mls/hr CONT PRN IV SEE I/O RECORD Last administered on 01/23/19at 17:06; Start 01/23/19 at 16:00; Stop 01/23/19 at 17:06; Status DC Piperacillin Sod/ Tazobactam Sod 3.375 gm/Sodium Chloride 50 ml @ 100 mls/hr 1X ONCE IV Last administered on 01/23/19at 22:19; Start 01/23/19 at 16:00; Stop 01/23/19 at 16:29; Status DC Vancomycin HCl 250 ml @ 250 mls/hr 1X ONCE IV ; Start 01/23/19 at 16:00; Stop 01/23/19 at 16:24; Status DC Fentanyl Citrate (Fentanyl 2ml Vial) 100 mcg 1X ONCE IV ; Start 01/23/19 at 16:15; Stop 01/23/19 at 16:24; Status DC Midazolam HCl (Versed) 2 mg 1X ONCE IV ; Start 01/23/19 at 16:15; Stop 01/23/19 at 16:24; Status DC Magnesium Sulfate/ Dextrose 100 ml @ 100 mls/hr 1X ONCE IV ; Start 01/23/19 at 16:15; Stop 01/23/19 at 17:14; Status DC Buspirone HCl (Buspar) 30 mg Q8H NG Last administered on 01/25/19at 08:47; Start 01/23/19 at 17:00; Stop 01/25/19 at 09:01; Status DC Acetaminophen (Tylenol) 650 mg Q4H NG Last administered on 01/25/19at 11:11; Start 01/23/19 at 16:15; Stop 01/26/19 at 01:00; Status DC Artificial Tears (Artificial Tears) 1 drop Q6HRS OU Last administered on 01/25/19at 23:53; Start 01/23/19 at 18:00; Stop 01/26/19 at 01:00; Status DC Artificial Tears (Artificial Tears) 1 drop PRN Q15MIN PRN OU DRY EYE; Start 01/23/19 at 16:15; Stop 01/26/19 at 01:00; Status DC Heparin Sodium (Porcine) (Heparin Sodium) 5,000 unit BID SQ ; Start 01/23/19 at 21:00; Stop 01/23/19 at 16:53; Status DC Pantoprazole Sodium (PROTONIX VIAL for IV PUSH) 40 mg DAILY IVP ; Start 01/24/19 at 09:00; Stop 01/23/19 at 20:27; Status DC Fentanyl Citrate 30 ml @ 0 mls/hr CONT PRN IV PER PROTOCOL.; Start 01/23/19 at 16:15; Stop 01/23/19 at 18:01; Status DC Propofol 100 ml @ 0 mls/hr CONT PRN IV PER PROTOCOL.; Start 01/23/19 at 16:15; Stop 01/23/19 at 20:27; Status DC Midazolam HCl 100 ml @ 0 mls/hr CONT PRN IV PER PROTOCOL. Last administered on 01/23/19at 16:50; Start 01/23/19 at 16:15; Stop 01/23/19 at 20:26; Status DC Vecuronium [place] (Norcuron Bolus) 7 mg PRN Q1HR PRN IV SHIVERING; Start 01/23/19 at 16:15; Stop 01/23/19 at 20:28; Status DC Pantoprazole Sodium (PROTONIX VIAL for IV PUSH) 40 mg DAILYAC IVP ; Start 01/24/19 at 07:30; Stop 01/23/19 at 16:25; Status DC Pantoprazole Sodium (PROTONIX VIAL for IV PUSH) 40 mg 1X ONCE IVP Last administered on 01/23/19at 23:43; Start 01/23/19 at 17:00; Stop 01/23/19 at 17:01; Status DC Enoxaparin Sodium (Lovenox 40mg Syringe) 40 mg Q24H SQ ; Start 01/23/19 at 21:00; Stop 01/23/19 at 23:59; Status DC Sodium Chloride 1,000 ml @ 150 mls/hr Q6H40M IV Last administered on 01/24/19at 04:43; Start 01/23/19 at 16:11; Stop 01/24/19 at 11:40; Status DC Potassium Chloride/Water 100 ml @ 100 mls/hr Q1H IV Last administered on 01/23/19at 19:06; Start 01/23/19 at 17:00; Stop 01/23/19 at 20:59; Status DC Potassium Chloride/Water 100 ml @ 100 mls/hr Q1H IV ; Start 01/23/19 at 22:00; Stop 01/23/19 at 23:59; Status DC Vancomycin HCl 1.75 gm/Sodium Chloride 500 ml @ 250 mls/hr 1X ONCE IV Last administered on 01/23/19at 23:42; Start 01/23/19 at 18:00; Stop 01/23/19 at 19:59; Status DC Aspirin (Aspirin Rectal Supp) 300 mg 1X ONCE DC Last administered on 01/23/19at 20:27; Start 01/23/19 at 17:00; Stop 01/23/19 at 17:01; Status DC Lidocaine HCl (Lidocaine 1% 20ml Vial) 20 ml STK-MED ONCE .ROUTE ; Start at 16:37; Stop 01/23/19 at 16:37; Status DC Heparin Sodium/ Sodium Chloride 1,000 ml @ As Directed STK-MED ONCE .ROUTE ; Start 01/23/19 at 16:37; Stop 01/23/19 at 16:38; Status DC Heparin Sodium/ Dextrose 500 ml @ 0 mls/hr CONT PRN IV SEE I/O RECORD; Start 01/23/19 at 17:00; Stop 01/23/19 at 23:27; Status DC Midazolam HCl (Versed) 5 mg STK-MED ONCE .ROUTE ; Start 01/23/19 at 17:00; Stop 01/23/19 at 17:00; Status DC Sodium Chloride 1,000 ml @ 1,000 mls/hr 1X ONCE IV Last administered on at 18:58; Start 01/23/19 at 17:30; Stop 01/23/19 at 18:29; Status DC Propofol 50 ml @ 2.1 mls/hr 1X STAT IV Last administered on 01/23/19at 18:51; Start 01/23/19 at 17:17; Stop 01/23/19 at 20:27; Status DC Midazolam HCl (Versed) 5 mg 1X ONCE IV Last administered on 01/23/19at 18:18; Start 01/23/19 at 17:30; Stop 01/23/19 at 17:31; Status DC Fentanyl Citrate 30 ml @ 0 mls/hr CONT PRN PRN IV PER PROTOCOL; Start 01/23/19 at 17:45; Status Cancel Naloxone HCl (Narcan) 0.4 mg PRN Q2MIN PRN IV SEE INSTRUCTIONS; Start 01/23/19 at 17:45 Sodium Chloride 1,000 ml @ 25 mls/hr Q24H IV Last administered on 01/26/19at 15:11; Start 01/23/19 at 17:33 Midazolam HCl (Versed) 5 mg 1X ONCE IV Last administered on 01/23/19at 19:02; Start 01/23/19 at 18:15; Stop 01/23/19 at 18:16; Status DC Amiodarone HCl (Cordarone) 150 mg STK-MED ONCE .ROUTE ; Start 01/23/19 at 18:11; Stop 01/23/19 at 18:12; Status DC Iodixanol (Visipaque 320) 100 ml STK-MED ONCE .ROUTE ; Start 01/23/19 at 18:19; Stop 01/23/19 at 18:19; Status DC Bivalirudin (Angiomax) 250 mg STK-MED ONCE IV ; Start 01/23/19 at 18:20; Stop 01/23/19 at 18:20; Status DC Nitroglycerin (Nitroglycerin) 200 mcg 1X ONCE IART Last administered on 01/23/19 19:10; Start 01/23/19 at 18:45; Stop 01/23/19 at 18:56; Status DC Heparin Sodium/ Sodium Chloride (HEPARIN for ARTERIAL LINE FLUSH) 1,000 unit 1X ONCE IART Last administered on 01/23/19at 19:10; Start 01/23/19 at 18:45; Stop 01/23/19 at 18:56; Status DC Heparin Sodium/ Sodium Chloride (HEPARIN for ARTERIAL LINE FLUSH) 1,000 unit 1X ONCE IART Last administered on 01/23/19 19:10; Start 01/23/19 at 18:45; Stop 01/23/19 at 18:56; Status DC Iodixanol (Visipaque 320) 100 ml 1X ONCE IART Last administered on 01/23/19 19:10; Start 01/23/19 at 18:45; Stop 01/23/19 at 18:56; Status DC Bivalirudin (Angiomax) 250 mg 1X ONCE IV Last administered on 01/23/19 19:10; Start 01/23/19 at 18:45; Stop 01/23/19 at 18:56; Status DC Lidocaine HCl (Lidocaine 1% 20ml Vial) 10 ml 1X ONCE INJ Last administered on 01/23/19 19:10; Start 01/23/19 at 18:45; Stop 01/23/19 at 18:56; Status DC Amiodarone HCl 150 mg/Dextrose 103 ml @ 0 mls/hr 1X ONCE IV Last administered on 01/23/19 19:10; Start 01/23/19 at 19:00; Stop 01/23/19 at 19:01; Status DC Info (CONTRAST GIVEN -- Rx MONITORING) 1 each PRN DAILY PRN MC SEE COMMENTS; Start 01/23/19 at 19:00; Stop 01/25/19 at 18:59; Status DC Heparin Sodium/ Sodium Chloride 500 ml @ As Directed STK-MED ONCE .ROUTE ; Start 01/23/19 at 19:02; Stop 01/23/19 at 19:03; Status DC Sodium Chloride (Normal Saline Flush) 3 ml QSHIFT PRN IV AFTER MEDS AND BLOOD DRAWS; Start 01/23/19 at 19:30 Sodium Chloride 1,000 ml @ 75 mls/hr [id number] IV Last administered on 01/23/19at 20:27; Start 01/23/19 at 19:17; Stop 01/24/19 at 03:16; Status DC Aspirin (Ecotrin) 325 mg DAILYWBKFT PO Last administered on 01/27/19 08:06; Start 01/24/19 at 08:00 Clopidogrel Bisulfate (Plavix) 75 mg DAILYWBKFT PO Last administered on 01/27/19 08:06; Start 01/24/19 at 08:00 Acetaminophen (Tylenol) 650 mg PRN Q6HRS PRN PO MILD PAIN / TEMP Last administered on 01/27/19at 11:01; Start 01/23/19 at 19:30 Fentanyl Citrate (Fentanyl 2ml Vial) 50 mcg PRN Q1HR PRN IV MODERATE OR SEVERE PAIN; Start 01/23/19 at 19:30; Stop 01/26/19 at 00:59; Status DC Nitroglycerin (Nitrostat) 0.4 mg PRN Q5MIN PRN SL CHEST PAIN; Start 01/23/19 at 19:30 Amiodarone HCl 150 mg/Dextrose 103 ml @ 600 mls/hr 1X PRN PRN IV FOR VENTRICUL AR TACHYCARDIA; Start 01/23/19 at 19:30 Lidocaine HCl (Lidocaine HCl 2% Abboject) 100 mg 1X PRN PRN IV FOR VENTRICULAR TACHYCARDIA; Start 01/23/19 at 19:30 Atropine Sulfate (ATROPINE 0.5mg SYRINGE) 0.5 mg PRN 1X PRN IV BRADYCARDIA; Start 01/23/19 at 19:30 Fentanyl Citrate (Fentanyl 2ml Vial) 100 mcg 1X ONCE IV Last administered on 01/23/19at 20:27; Start 01/23/19 at 19:45; Stop 01/23/19 at 20:25; Status DC Midazolam HCl (Versed) 2 mg 1X ONCE IV ; Start 01/23/19 at 19:45; Stop 01/23/19 at 20:25; Status DC Magnesium Sulfate/ Dextrose 100 ml @ 100 mls/hr 1X ONCE IV Last administered on 01/23/19 20:46; Start 01/23/19 at 19:45; Stop 01/23/19 at 20:44; Status DC Heparin Sodium (Porcine) (Heparin Sodium) 5,000 unit BID SQ Last administered on 01/27/19 08:06; Start 01/23/19 at 21:00 Pantoprazole Sodium (PROTONIX VIAL for IV PUSH) 40 mg DAILY IVP Last administered on 01/27/19 08:06; Start 01/24/19 at 09:00 Fentanyl Citrate 30 ml @ 0 mls/hr CONT PRN IV PER PROTOCOL. Last administered on 01/25/19 16:54; Start 01/23/19 at 19:45; Stop 01/26/19 at 01:00; Status DC Propofol 100 ml @ 0 mls/hr CONT PRN IV PER PROTOCOL.; Start 01/23/19 at 19:45; Stop 01/26/19 at 01:00; Status DC Midazolam HCl 100 ml @ 0 mls/hr CONT PRN IV PER PROTOCOL. Last administered on 01/25/19 23:11; Start 01/23/19 at 19:45; Stop 01/26/19 at 01:00; Status DC Vecuronium [place] (Norcuron Bolus) 7 mg PRN Q1HR PRN IV SHIVERING Last administered on 01/24/19 21:19; Start 01/23/19 at 19:45 Norepinephrine Bitartrate 250 ml @ 13.608 mls/ hr CONT PRN IV SEE I/O RECORD; Start 01/23/19 at 20:45 Sodium Chloride 500 ml @ 500 mls/hr 1X ONCE IV Last administered on 01/23/19 20:57; Start 01/23/19 at 20:45; Stop 01/23/19 at 21:44; Status DC Daptomycin 440 mg/ Sodium Chloride 50 ml @ 100 mls/hr Q24H IV Last administered on 01/25/19 23:11; Start 01/23/19 at 23:00; Stop 01/26/19 at 07:52; Status DC Linezolid/Dextrose 300 ml @ 300 mls/hr Q12HR IV Last administered on 01/25/19 21:03; Start 01/24/19 at 09:00; Stop 01/26/19 at 07:52; Status DC Doxycycline Hyclate 100 mg/ Dextrose 100 ml @ 50 mls/hr Q12HR IV Last administered on 01/27/19at 08:06; Start 01/24/19 at 09:00 Doxycycline Hyclate 100 mg/ Dextrose 100 ml @ 50 mls/hr 1X ONCE IV Last administered on 01/23/19at 23:42; Start 01/23/19 at 23:30; Stop 01/24/19 at 01:29; Status DC Linezolid/Dextrose 300 ml @ 300 mls/hr ONCE ONCE IV Last administered on 01/23/19at 23:42; Start 01/23/19 at 23:00; Stop 01/23/19 at 23:59; Status DC Insulin Human Regular 150 unit/ Sodium Chloride 151.5 ml @ 0 mls/hr CONT PRN IV SEE I/O RECORD; Start 01/23/19 at 23:15; Stop 01/26/19 at 08:41; Status DC Magnesium Sulfate 50 ml @ 25 mls/hr 1X ONCE IV Last administered on 01/24/19at 08:29; Start 01/24/19 at 06:45; Stop 01/24/19 at 08:44; Status DC Piperacillin Sod/ Tazobactam Sod 3.375 gm/Sodium Chloride 50 ml @ 100 mls/hr Q6HRS IV Last administered on 01/27/19at 11:01; Start 01/24/19 at 08:00 Atorvastatin Calcium (Lipitor) 20 mg QHS PO Last administered on 01/26/19at 21:10; Start 01/24/19 at 21:00 Sodium Chloride 1,000 ml @ 100 mls/hr Q10H IV Last administered on 01/27/19at 11:01; Start 01/24/19 at 11:45 Amiodarone HCl 900 mg/Dextrose 518 ml @ 17 mls/hr 30H29M IV ; Start 01/24/19 at 15:00; Status Cancel Magnesium Sulfate/ Dextrose 100 ml @ 100 mls/hr 1X ONCE IV Last administered on 01/24/19at 13:52; Start 01/24/19 at 13:30; Stop 01/24/19 at 14:29; Status DC Lidocaine/Sodium Bicarbonate (Buffered Lidocaine 1%) 3 ml STK-MED ONCE .ROUTE ; Start 01/24/19 at 15:03; Stop 01/24/19 at 15:04; Status DC Amiodarone HCl 900 mg/Dextrose 518 ml @ 33 mls/hr CONT PRN IV SEE I/O RECORD Last administered on 01/24/19at 16:09; Start 01/24/19 at 16:30; Stop 01/24/19 at 16:30; Status DC Potassium Chloride/Water 100 ml @ 100 mls/hr Q1H IV ; Start 01/25/19 at 09:00; Stop 01/25/19 at 10:06; Status DC Amiodarone HCl 450 mg/Dextrose 259 ml @ 17.267 mls/ hr CONT PRN IV SEE I/O RECORD Last administered on 01/26/19at 04:56; Start 01/25/19 at 13:15; Stop 01/26/19 at 13:47; Status DC Fentanyl Citrate 30 ml @ 0 mls/hr CONT PRN IV SEE PROTOCOL Last administered on 01/26/19at 18:46; Start 01/26/19 at 01:00 Propofol 100 ml @ 0 mls/hr CONT PRN IV SEE PROTOCOL; Start 01/26/19 at 01:00 Midazolam HCl 100 ml @ 0 mls/hr CONT PRN IV SEE PROTOCOL Last administered on 01/27/19at 02:20; Start 01/26/19 at 01:00 Lorazepam (Ativan Inj) 2 mg PRN Q4HRS PRN IV ANXIETY / AGITATION; Start 01/26/19 at 08:45 Morphine Sulfate (Morphine Sulfate) 2 mg PRN Q2HR PRN IV PAIN; Start 01/26/19 at 08:45 Lisinopril (Prinivil) 2.5 mg DAILY PO Last administered on 01/27/19at 08:06; Start 01/27/19 at 09:00 Metoprolol Tartrate (Lopressor) 12.5 mg BID PO Last administered on 01/27/19at 08:06; Start 01/26/19 at 21:00 Amiodarone HCl (Cordarone) 400 mg DAILY PO Last administered on 01/27/19at 08:06; Start 01/27/19 at 09:00 Amiodarone HCl (Cordarone) 400 mg 1X ONCE PO Last administered on 01/26/19at 14:34; Start 01/26/19 at 14:15; Stop 01/26/19 at 14:16; Status DC Epinephrine HCl (EPINEPHrine SYRINGE) 1 mg STK-MED ONCE .ROUTE ; Start 01/23/19 at 14:47; Stop 01/26/19 at 14:48; Status DC Sodium Bicarbonate (Sodium Bicarb Adult 8.4% Syr) 100 meq STK-MED ONCE .ROUTE ; Start 01/23/19 at 14:47; Stop 01/26/19 at 14:48; Status DC Vitals/I & O Vital Sign - Last 24 Hours 01/26/19 01/26/19 01/26/19 01/26/19 14:00 14:11 14:34 15:00 Pulse 70 69 68 Resp 24 24 B/P (MAP) 110/71 (84) 110/71 118/74 (89) Pulse Ox 100 100 100 O2 Delivery Ventilator Ventilator Ventilator 01/26/19 01/26/19 01/26/19 01/26/19 16:00 16:00 16:06 17:00 Pulse 72 68 Resp 24 B/P (MAP) 120/71 (87) 126/72 (90) Pulse Ox 100 100 100 O2 Delivery Mechanical Ventilator Ventilator Ventilator Ventilator 01/26/19 01/26/19 01/26/19 01/26/19 18:00 18:46 19:00 19:11 Pulse 68 98 Resp 24 24 24 24 B/P (MAP) 106/63 (77) 106/63 (77) Pulse Ox 100 100 100 100 O2 Delivery Ventilator Ventilator Ventilator Ventilator 01/26/19 01/26/19 01/26/19 01/26/19 19:46 19:59 20:00 20:00 Temp 99.1 99.1 Pulse 65 Resp 24 B/P (MAP) 101/75 (84) Pulse Ox 100 10 O2 Delivery Ventilator Ventilator Mechanical Ventilator O2 Flow Rate 15.0 01/26/19 01/26/19 01/26/19 01/26/19 21:00 21:10 22:00 23:00 Pulse 69 72 68 64 Resp 24 24 24 B/P (MAP) 120/76 (91) 104/66 (79) 97/63 (74) Pulse Ox 95 98 100 O2 Delivery Ventilator Ventilator Ventilator 01/26/19 01/27/19 01/27/19 01/27/19 23:17 00:00 00:00 01:00 Temp 98.8 98.8 Pulse 63 67 Resp 24 24 B/P (MAP) 93/61 (72) 98/62 (74) Pulse Ox 100 99 100 O2 Delivery Ventilator Mechanical Ventilator Ventilator Ventilator O2 Flow Rate 15.0 01/27/19 01/27/19 01/27/19 01/27/19 01:45 02:00 03:00 03:10 Pulse 64 68 Resp 24 24 B/P (MAP) 95/55 (68) 100/62 (75) Pulse Ox 100 98 95 99 O2 Delivery Ventilator Ventilator Ventilator Ventilator 01/27/19 01/27/19 01/27/19 01/27/19 04:01 04:03 05:00 05:51 Temp 98.7 98.7 Pulse 67 66 Resp 24 24 B/P (MAP) 109/68 (82) 109/71 (84) Pulse Ox 100 100 100 O2 Delivery Mechanical Ventilator Ventilator Ventilator Ventilator O2 Flow Rate 15.0 01/27/19 01/27/19 01/27/19 01/27/19 06:00 08:00 08:06 08:06 Pulse 74 74 74 Resp 24 B/P (MAP) 103/68 (80) 103/68 103/68 Pulse Ox 100 O2 Delivery Ventilator Mechanical Ventilator O2 Flow Rate 15.0 01/27/19 01/27/19 01/27/19 08:06 08:32 12:00 Pulse 74 B/P (MAP) 103/68 Pulse Ox 99 99 O2 Delivery Ventilator Intake and Output 01/26/19 01/26/19 01/27/19 14:59 22:59 06:59 Intake Total 300 ml 2456.72 ml 2901 ml Output Total 575 ml 455 ml 475 ml Balance -275 ml 2001.72 ml 2426 ml ISAMAR CHEUNG MD Jan 27, 2019 13:12
--- NOTE | 2019-01-27 14:11 | PDOC ---
PROGRESS NOTES Assessment Problems Medical Problems: (1) Cardiorespiratory arrest Status: Acute (2) Elevated liver function tests Status: Acute (3) Elevated troponin Status: Acute (4) Hyperglycemia Status: Acute (5) Hypokalemia Status: Acute (6) Metabolic acidosis Status: Acute (7) Renal insufficiency Status: Acute (8) Ribs, multiple fractures Status: Acute (9) Severe sepsis Status: Acute (10) STEMI (ST elevation myocardial infarction) Status: Acute (11) Traumatic pneumothorax Status: Acute Anoxia/hypoxia/metabolic encephalopathy. EEG shows findings consistent with this, no epileptic activity. Head CT unremarkable S/P cardiac arrest, downtime estimated on and off for 33 minutes. S/P hypothermia protocol CAD with LCX occlusion, s/p stents placement. Respiratory failure. Hypokalemia, K+ 2.8 CHF, EF 30-35%. Lactic acidosis. Leukocytosis. Pulmonary infiltrate. Hepatic injury. Renal failure. Hematuria. Rib and sternum fracture. Plan Continue ICU care Treat medical and cardiac diseases. Subjective none Objective Vital Signs Date Time Temp Pulse Resp B/P (MAP) Pulse Ox O2 Delivery O2 Flow Rate FiO2 01/27/19 12:00 99 01/27/19 08:32 Ventilator 01/27/19 08:06 74 103/68 01/27/19 08:00 15.0 01/27/19 06:00 24 01/27/19 04:03 98.7 98.7 Intake and Output 01/27/19 06:59 Intake Total 5657.72 ml Output Total 1505 ml Balance 4152.72 ml Intake Oral 0 ml IV Total 3540.72 ml Tube Feeding 1517 ml Blood Product IV Normal Saline Flush 200 ml Other 400 ml Output Urine Total 1505 ml Chest Tube Drainage Total 0 ml # Bowel Movements 1 PHYSICAL EXAM Alert. Intubated, follows commands PERRL. EOMI. CN: no focal findings. Muscle tone: normal. Muscle strength: moves all extremities DTR: 1+ Plantar reflex: flexor Gait: not examined in bed. Sensory exam: no abnormal findings. No cerebellar signs elicited. Review of Relevant I have reviewed the following items yadi (where applicable) has been applied. Labs Laboratory Tests Test 01/26/19 00:27 01/26/19 04:30 01/26/19 08:00 01/26/19 23:56 Glucose (Fingerstick) 86 mg/dL (70-99) 124 mg/dL (70-99) White Blood Count 11.3 x10^3/uL (4.0-11.0) Red Blood Count 4.22 x10^6/uL (4.30-5.70) Hemoglobin 13.4 g/dL (13.0-17.5) Hematocrit 39.5 % (39.0-53.0) Mean Corpuscular Volume 94 fL (79-100) Mean Corpuscular Hemoglobin 32 pg (25-35) Mean Corpuscular Hemoglobin Concent 34 g/dL (31-37) Red Cell Distribution Width 13.4 % (11.5-14.5) Platelet Count 110 x10^3/uL (140-400) Neutrophils (%) (Auto) 88 % (31-73) Lymphocytes (%) (Auto) 7 % (24-48) Monocytes (%) (Auto) 5 % (0-9) Eosinophils (%) (Auto) 0 % (0-3) Basophils (%) (Auto) 0 % (0-3) Neutrophils # (Auto) 9.9 x10^3/uL (1.8-7.7) Lymphocytes # (Auto) 0.7 x10^3/uL (1.0-4.8) Monocytes # (Auto) 0.5 x10^3/uL (0.0-1.1) Eosinophils # (Auto) 0.0 x10^3/uL (0.0-0.7) Basophils # (Auto) 0.0 x10^3/uL (0.0-0.2) Sodium Level 142 mmol/L (136-145) Potassium Level 3.9 mmol/L (3.5-5.1) Chloride Level 111 mmol/L (98-107) Carbon Dioxide Level 20 mmol/L (21-32) Anion Gap 11 (6-14) Blood Urea Nitrogen 16 mg/dL (8-26) Creatinine 0.9 mg/dL (0.7-1.3) Estimated GFR (Cockcroft-Gault) 85.0 BUN/Creatinine Ratio 18 (6-20) Glucose Level 87 mg/dL (70-99) Calcium Level 7.6 mg/dL (8.5-10.1) Magnesium Level 2.1 mg/dL (1.8-2.4) Total Bilirubin 0.8 mg/dL (0.2-1.0) Aspartate Amino Transf (AST/SGOT) 238 U/L (15-37) Alanine Aminotransferase (ALT/SGPT) 145 U/L (16-63) Alkaline Phosphatase 64 U/L (46-116) Total Protein 4.8 g/dL (6.4-8.2) Albumin 2.4 g/dL (3.4-5.0) Albumin/Globulin Ratio 1.0 (1.0-1.7) O2 Saturation 99 % (92-99) Arterial Blood pH 7.33 (7.35-7.45) Arterial Blood pCO2 at Patient Temp 38 mmHg (35-46) Arterial Blood pO2 at Patient Temp 165 mmHg (65-108) Arterial Blood HCO3 20 mmol/L (21-28) Arterial Blood Base Excess -6 mmol/L (-3-3) FiO2 40 Test 01/27/19 05:34 O2 Saturation 99 % (92-99) Arterial Blood pH 7.41 (7.35-7.45) Arterial Blood pCO2 at Patient Temp 35 mmHg (35-46) Arterial Blood pO2 at Patient Temp 165 mmHg (65-108) Arterial Blood HCO3 22 mmol/L (21-28) Arterial Blood Base Excess -2 mmol/L (-3-3) FiO2 40 Laboratory Tests Test 01/26/19 23:56 01/27/19 05:34 Glucose (Fingerstick) 124 mg/dL (70-99) O2 Saturation 99 % (92-99) Arterial Blood pH 7.41 (7.35-7.45) Arterial Blood pCO2 at Patient Temp 35 mmHg (35-46) Arterial Blood pO2 at Patient Temp 165 mmHg (65-108) Arterial Blood HCO3 22 mmol/L (21-28) Arterial Blood Base Excess -2 mmol/L (-3-3) FiO2 40 Microbiology 01/23/19 Blood Culture - Preliminary, Resulted NO GROWTH AFTER 3 DAYS Medications Current Medications Sodium Chloride 1,000 ml @ 1,000 mls/hr Q1H IV Last administered on 01/23/19at 17:23; Start 01/23/19 at 15:13; Stop 01/23/19 at 16:12; Status DC Sodium Bicarbonate (Sodium Bicarb Adult 8.4% Syr) 100 meq 1X ONCE IV Last administered on 01/23/19at 17:23; Start 01/23/19 at 15:30; Stop 01/23/19 at 15:59; Status DC Midazolam HCl (Versed) 5 mg STK-MED ONCE .ROUTE ; Start 01/23/19 at 15:25; Stop 01/23/19 at 15:25; Status DC Propofol 50 ml @ As Directed STK-MED ONCE IV ; Start 01/23/19 at 15:25; Stop 01/23/19 at 15:25; Status DC Calcium Gluconate (Calcium Gluconate) 1,000 mg 1X ONCE IVP Last administered on 01/23/19at 16:12; Start 01/23/19 at 16:00; Stop 01/23/19 at 16:01; Status DC Dextrose (Dextrose 50%-Water Syringe) 25 gm 1X ONCE IV ; Start 01/23/19 at 15:45; Stop 01/23/19 at 15:53; Status DC Insulin Human Regular (HumuLIN R VIAL) 10 unit 1X ONCE IV ; Start 01/23/19 at 15:45; Stop 01/23/19 at 15:53; Status DC Iohexol (Omnipaque 350 Mg/ml) 90 ml 1X ONCE IV Last administered on 01/23/19at 16:08; Start 01/23/19 at 15:45; Stop 01/23/19 at 16:00; Status DC Amiodarone HCl 900 mg/Dextrose 518 ml @ 0 mls/hr CONT PRN IV SEE I/O RECORD Last administered on 01/23/19at 17:06; Start 01/23/19 at 16:00; Stop 01/23/19 at 17:06; Status DC Piperacillin Sod/ Tazobactam Sod 3.375 gm/Sodium Chloride 50 ml @ 100 mls/hr 1X ONCE IV Last administered on 01/23/19at 22:19; Start 01/23/19 at 16:00; Stop 01/23/19 at 16:29; Status DC Vancomycin HCl 250 ml @ 250 mls/hr 1X ONCE IV ; Start 01/23/19 at 16:00; Stop 01/23/19 at 16:24; Status DC Fentanyl Citrate (Fentanyl 2ml Vial) 100 mcg 1X ONCE IV ; Start 01/23/19 at 16:15; Stop 01/23/19 at 16:24; Status DC Midazolam HCl (Versed) 2 mg 1X ONCE IV ; Start 01/23/19 at 16:15; Stop 01/23/19 at 16:24; Status DC Magnesium Sulfate/ Dextrose 100 ml @ 100 mls/hr 1X ONCE IV ; Start 01/23/19 at 16:15; Stop 01/23/19 at 17:14; Status DC Buspirone HCl (Buspar) 30 mg Q8H NG Last administered on 01/25/19at 08:47; Start 01/23/19 at 17:00; Stop 01/25/19 at 09:01; Status DC Acetaminophen (Tylenol) 650 mg Q4H NG Last administered on 01/25/19at 11:11; Start 01/23/19 at 16:15; Stop 01/26/19 at 01:00; Status DC Artificial Tears (Artificial Tears) 1 drop Q6HRS OU Last administered on 01/25/19at 23:53; Start 01/23/19 at 18:00; Stop 01/26/19 at 01:00; Status DC Artificial Tears (Artificial Tears) 1 drop PRN Q15MIN PRN OU DRY EYE; Start 01/23/19 at 16:15; Stop 01/26/19 at 01:00; Status DC Heparin Sodium (Porcine) (Heparin Sodium) 5,000 unit BID SQ ; Start 01/23/19 at 21:00; Stop 01/23/19 at 16:53; Status DC Pantoprazole Sodium (PROTONIX VIAL for IV PUSH) 40 mg DAILY IVP ; Start 01/24/19 at 09:00; Stop 01/23/19 at 20:27; Status DC Fentanyl Citrate 30 ml @ 0 mls/hr CONT PRN IV PER PROTOCOL.; Start 01/23/19 at 16:15; Stop 01/23/19 at 18:01; Status DC Propofol 100 ml @ 0 mls/hr CONT PRN IV PER PROTOCOL.; Start 01/23/19 at 16:15; Stop 01/23/19 at 20:27; Status DC Midazolam HCl 100 ml @ 0 mls/hr CONT PRN IV PER PROTOCOL. Last administered on 01/23/19at 16:50; Start 01/23/19 at 16:15; Stop 01/23/19 at 20:26; Status DC Vecuronium [place] (Norcuron Bolus) 7 mg PRN Q1HR PRN IV SHIVERING; Start 01/23/19 at 16:15; Stop 01/23/19 at 20:28; Status DC Pantoprazole Sodium (PROTONIX VIAL for IV PUSH) 40 mg DAILYAC IVP ; Start 01/24/19 at 07:30; Stop 01/23/19 at 16:25; Status DC Pantoprazole Sodium (PROTONIX VIAL for IV PUSH) 40 mg 1X ONCE IVP Last administered on 01/23/19at 23:43; Start 01/23/19 at 17:00; Stop 01/23/19 at 17:01; Status DC Enoxaparin Sodium (Lovenox 40mg Syringe) 40 mg Q24H SQ ; Start 01/23/19 at 21:00; Stop 01/23/19 at 23:59; Status DC Sodium Chloride 1,000 ml @ 150 mls/hr Q6H40M IV Last administered on 01/24/19at 04:43; Start 01/23/19 at 16:11; Stop 01/24/19 at 11:40; Status DC Potassium Chloride/Water 100 ml @ 100 mls/hr Q1H IV Last administered on 01/23/19at 19:06; Start 01/23/19 at 17:00; Stop 01/23/19 at 20:59; Status DC Potassium Chloride/Water 100 ml @ 100 mls/hr Q1H IV ; Start 01/23/19 at 22:00; Stop 01/23/19 at 23:59; Status DC Vancomycin HCl 1.75 gm/Sodium Chloride 500 ml @ 250 mls/hr 1X ONCE IV Last administered on 01/23/19at 23:42; Start 01/23/19 at 18:00; Stop 01/23/19 at 19:59; Status DC Aspirin (Aspirin Rectal Supp) 300 mg 1X ONCE LA Last administered on 01/23/19at 20:27; Start 01/23/19 at 17:00; Stop 01/23/19 at 17:01; Status DC Lidocaine HCl (Lidocaine 1% 20ml Vial) 20 ml STK-MED ONCE .ROUTE ; Start 01/23/19 at 16:37; Stop 01/23/19 at 16:37; Status DC Heparin Sodium/ Sodium Chloride 1,000 ml @ As Directed STK-MED ONCE .ROUTE ; Start 01/23/19 at 16:37; Stop 01/23/19 at 16:38; Status DC Heparin Sodium/ Dextrose 500 ml @ 0 mls/hr CONT PRN IV SEE I/O RECORD; Start 01/23/19 at 17:00; Stop 01/23/19 at 23:27; Status DC Midazolam HCl (Versed) 5 mg STK-MED ONCE .ROUTE ; Start 01/23/19 at 17:00; Stop 01/23/19 at 17:00; Status DC Sodium Chloride 1,000 ml @ 1,000 mls/hr 1X ONCE IV Last administered on 01/23/19at 18:58; Start 01/23/19 at 17:30; Stop 01/23/19 at 18:29; Status DC Propofol 50 ml @ 2.1 mls/hr 1X STAT IV Last administered on 01/23/19at 18:51; Start 01/23/19 at 17:17; Stop 01/23/19 at 20:27; Status DC Midazolam HCl (Versed) 5 mg 1X ONCE IV Last administered on 01/23/19at 18:18; Start 01/23/19 at 17:30; Stop 01/23/19 at 17:31; Status DC Fentanyl Citrate 30 ml @ 0 mls/hr CONT PRN PRN IV PER PROTOCOL; Start 01/23/19 at 17:45; Status Cancel Naloxone HCl (Narcan) 0.4 mg PRN Q2MIN PRN IV SEE INSTRUCTIONS; Start 01/23/19 at 17:45 Sodium Chloride 1,000 ml @ 25 mls/hr Q24H IV Last administered on 01/26/19at 15:11; Start 01/23/19 at 17:33 Midazolam HCl (Versed) 5 mg 1X ONCE IV Last administered on 01/23/19at 19:02; Start 01/23/19 at 18:15; Stop 01/23/19 at 18:16; Status DC Amiodarone HCl (Cordarone) 150 mg STK-MED ONCE .ROUTE ; Start 01/23/19 at 18:11; Stop 01/23/19 at 18:12; Status DC Iodixanol (Visipaque 320) 100 ml STK-MED ONCE .ROUTE ; Start 01/23/19 at 18:19; Stop 01/23/19 at 18:19; Status DC Bivalirudin (Angiomax) 250 mg STK-MED ONCE IV ; Start 01/23/19 at 18:20; Stop 01/23/19 at 18:20; Status DC Nitroglycerin (Nitroglycerin) 200 mcg 1X ONCE IART Last administered on 01/23/19 19:10; Start 01/23/19 at 18:45; Stop 01/23/19 at 18:56; Status DC Heparin Sodium/ Sodium Chloride (HEPARIN for ARTERIAL LINE FLUSH) 1,000 unit 1X ONCE IART Last administered on 01/23/19 19:10; Start 01/23/19 at 18:45; Stop 01/23/19 at 18:56; Status DC Heparin Sodium/ Sodium Chloride (HEPARIN for ARTERIAL LINE FLUSH) 1,000 unit 1X ONCE IART Last administered on 01/23/19 19:10; Start 01/23/19 at 18:45; Stop 01/23/19 at 18:56; Status DC Iodixanol (Visipaque 320) 100 ml 1X ONCE IART Last administered on 01/23/19 19:10; Start 01/23/19 at 18:45; Stop 01/23/19 at 18:56; Status DC Bivalirudin (Angiomax) 250 mg 1X ONCE IV Last administered on 01/23/19 19:10; Start 01/23/19 at 18:45; Stop 01/23/19 at 18:56; Status DC Lidocaine HCl (Lidocaine 1% 20ml Vial) 10 ml 1X ONCE INJ Last administered on 01/23/19 19:10; Start 01/23/19 at 18:45; Stop 01/23/19 at 18:56; Status DC Amiodarone HCl 150 mg/Dextrose 103 ml @ 0 mls/hr 1X ONCE IV Last administered on 01/23/19at 19:10; Start 01/23/19 at 19:00; Stop 01/23/19 at 19:01; Status DC Info (CONTRAST GIVEN -- Rx MONITORING) 1 each PRN DAILY PRN MC SEE COMMENTS; Start 01/23/19 at 19:00; Stop 01/25/19 at 18:59; Status DC Heparin Sodium/ Sodium Chloride 500 ml @ As Directed STK-MED ONCE .ROUTE ; Start 01/23/19 at 19:02; Stop 01/23/19 at 19:03; Status DC Sodium Chloride (Normal Saline Flush) 3 ml QSHIFT PRN IV AFTER MEDS AND BLOOD DRAWS; Start 01/23/19 at 19:30 Sodium Chloride 1,000 ml @ 75 mls/hr [id number] IV Last administered on 01/23/19at 20:27; Start 01/23/19 at 19:17; Stop 01/24/19 at 03:16; Status DC Aspirin (Ecotrin) 325 mg DAILYWBKFT PO Last administered on 01/27/19at 08:06; Start 01/24/19 at 08:00 Clopidogrel Bisulfate (Plavix) 75 mg DAILYWBKFT PO Last administered on 01/27/19 08:06; Start 01/24/19 at 08:00 Acetaminophen (Tylenol) 650 mg PRN Q6HRS PRN PO MILD PAIN / TEMP Last administered on 01/27/19at 11:01; Start 01/23/19 at 19:30 Fentanyl Citrate (Fentanyl 2ml Vial) 50 mcg PRN Q1HR PRN IV MODERATE OR SEVERE PAIN; Start 01/23/19 at 19:30; Stop 01/26/19 at 00:59; Status DC Nitroglycerin (Nitrostat) 0.4 mg PRN Q5MIN PRN SL CHEST PAIN; Start 01/23/19 at 19:30 Amiodarone HCl 150 mg/Dextrose 103 ml @ 600 mls/hr 1X PRN PRN IV FOR VENTRICULAR TACHYCARDIA; Start 01/23/19 at 19:30 Lidocaine HCl (Lidocaine HCl 2% Abboject) 100 mg 1X PRN PRN IV FOR VENTRICULAR TACHYCARDIA; Start 01/23/19 at 19:30 Atropine Sulfate (ATROPINE 0.5mg SYRINGE) 0.5 mg PRN 1X PRN IV BRADYCARDIA; Start 01/23/19 at 19:30 Fentanyl Citrate (Fentanyl 2ml Vial) 100 mcg 1X ONCE IV Last administered on 01/23/19at 20:27; Start 01/23/19 at 19:45; Stop 01/23/19 at 20:25; Status DC Midazolam HCl (Versed) 2 mg 1X ONCE IV ; Start 01/23/19 at 19:45; Stop 01/23/19 at 20:25; Status DC Magnesium Sulfate/ Dextrose 100 ml @ 100 mls/hr 1X ONCE IV Last administered on 01/23/19at 20:46; Start 01/23/19 at 19:45; Stop 01/23/19 at 20:44; Status DC Heparin Sodium (Porcine) (Heparin Sodium) 5,000 unit BID SQ Last administered o n 01/27/19at 08:06; Start 01/23/19 at 21:00 Pantoprazole Sodium (PROTONIX VIAL for IV PUSH) 40 mg DAILY IVP Last administered on 01/27/19at 08:06; Start 01/24/19 at 09:00 Fentanyl Citrate 30 ml @ 0 mls/hr CONT PRN IV PER PROTOCOL. Last administered on 01/25/19at 16:54; Start 01/23/19 at 19:45; Stop 01/26/19 at 01:00; Status DC Propofol 100 ml @ 0 mls/hr CONT PRN IV PER PROTOCOL.; Start 01/23/19 at 19:45; Stop 01/26/19 at 01:00; Status DC Midazolam HCl 100 ml @ 0 mls/hr CONT PRN IV PER PROTOCOL. Last administered on 01/25/19at 23:11; Start 01/23/19 at 19:45; Stop 01/26/19 at 01:00; Status DC Vecuronium [place] (Norcuron Bolus) 7 mg PRN Q1HR PRN IV SHIVERING Last administered on 01/24/19at 21:19; Start 01/23/19 at 19:45 Norepinephrine Bitartrate 250 ml @ 13.608 mls/ hr CONT PRN IV SEE I/O RECORD; Start 01/23/19 at 20:45 Sodium Chloride 500 ml @ 500 mls/hr 1X ONCE IV Last administered on 01/23/19at 20:57; Start 01/23/19 at 20:45; Stop 01/23/19 at 21:44; Status DC Daptomycin 440 mg/ Sodium Chloride 50 ml @ 100 mls/hr Q24H IV Last administered on 01/25/19at 23:11; Start 01/23/19 at 23:00; Stop 01/26/19 at 07:52; Status DC Linezolid/Dextrose 300 ml @ 300 mls/hr Q12HR IV Last administered on 01/25/19at 21:03; Start 01/24/19 at 09:00; Stop 01/26/19 at 07:52; Status DC Doxycycline Hyclate 100 mg/ Dextrose 100 ml @ 50 mls/hr Q12HR IV Last administered on 01/27/19at 08:06; Start 01/24/19 at 09:00 Doxycycline Hyclate 100 mg/ Dextrose 100 ml @ 50 mls/hr 1X ONCE IV Last administered on 01/23/19at 23:42; Start 01/23/19 at 23:30; Stop 01/24/19 at 01:29; Status DC Linezolid/Dextrose 300 ml @ 300 mls/hr ONCE ONCE IV Last administered on 01/23/19at 23:42; Start 01/23/19 at 23:00; Stop 01/23/19 at 23:59; Status DC Insulin Human Regular 150 unit/ Sodium Chloride 151.5 ml @ 0 mls/hr CONT PRN IV SEE I/O RECORD; Start 01/23/19 at 23:15; Stop 01/26/19 at 08:41; Status DC Magnesium Sulfate 50 ml @ 25 mls/hr 1X ONCE IV Last administered on 01/24/19at 08:29; Start 01/24/19 at 06:45; Stop 01/24/19 at 08:44; Status DC Piperacillin Sod/ Tazobactam Sod 3.375 gm/Sodium Chloride 50 ml @ 100 mls/hr Q6HRS IV Last administered on 01/27/19at 11:01; Start 01/24/19 at 08:00 Atorvastatin Calcium (Lipitor) 20 mg QHS PO Last administered on 01/26/19at 21:10; Start 01/24/19 at 21:00 Sodium Chloride 1,000 ml @ 100 mls/hr Q10H IV Last administered on 01/27/19at 11:01; Start 01/24/19 at 11:45 Amiodarone HCl 900 mg/Dextrose 518 ml @ 17 mls/hr 30H29M IV ; Start 01/24/19 at 15:00; Status Cancel Magnesium Sulfate/ Dextrose 100 ml @ 100 mls/hr 1X ONCE IV Last administered on 01/24/19at 13:52; Start 01/24/19 at 13:30; Stop 01/24/19 at 14:29; Status DC Lidocaine/Sodium Bicarbonate (Buffered Lidocaine 1%) 3 ml STK-MED ONCE .ROUTE ; Start 01/24/19 at 15:03; Stop 01/24/19 at 15:04; Status DC Amiodarone HCl 900 mg/Dextrose 518 ml @ 33 mls/hr CONT PRN IV SEE I/O RECORD Last administered on 01/24/19at 16:09; Start 01/24/19 at 16:30; Stop 01/24/19 at 16:30; Status DC Potassium Chloride/Water 100 ml @ 100 mls/hr Q1H IV ; Start 01/25/19 at 09:00; Stop 01/25/19 at 10:06; Status DC Amiodarone HCl 450 mg/Dextrose 259 ml @ 17.267 mls/ hr CONT PRN IV SEE I/O RECORD Last administered on 01/26/19at 04:56; Start 01/25/19 at 13:15; Stop 01/26/19 at 13:47; Status DC Fentanyl Citrate 30 ml @ 0 mls/hr CONT PRN IV SEE PROTOCOL Last administered on 01/26/19at 18:46; Start 01/26/19 at 01:00 Propofol 100 ml @ 0 mls/hr CONT PRN IV SEE PROTOCOL; Start 01/26/19 at 01:00 Midazolam HCl 100 ml @ 0 mls/hr CONT PRN IV SEE PROTOCOL Last administered on 01/27/19at 02:20; Start 01/26/19 at 01:00 Lorazepam (Ativan Inj) 2 mg PRN Q4HRS PRN IV ANXIETY / AGITATION; Start 01/26/19 at 08:45 Morphine Sulfate (Morphine Sulfate) 2 mg PRN Q2HR PRN IV PAIN; Start 01/26/19 at 08:45 Lisinopril (Prinivil) 2.5 mg DAILY PO Last administered on 01/27/19at 08:06; Start 01/27/19 at 09:00 Metoprolol Tartrate (Lopressor) 12.5 mg BID PO Last administered on 01/27/19at 08:06; Start 01/26/19 at 21:00 Amiodarone HCl (Cordarone) 400 mg DAILY PO Last administered on 01/27/19at 08:06; Start 01/27/19 at 09:00 Amiodarone HCl (Cordarone) 400 mg 1X ONCE PO Last administered on 01/26/19at 14:34; Start 01/26/19 at 14:15; Stop 01/26/19 at 14:16; Status DC Epinephrine HCl (EPINEPHrine SYRINGE) 1 mg STK-MED ONCE .ROUTE ; Start 01/23/19 at 14:47; Stop 01/26/19 at 14:48; Status DC Sodium Bicarbonate (Sodium Bicarb Adult 8.4% Syr) 100 meq STK-MED ONCE .ROUTE ; Start 01/23/19 at 14:47; Stop 01/26/19 at 14:48; Status DC Vitals/I & O Vital Sign - Last 24 Hours 01/26/19 01/26/19 01/26/19 01/26/19 14:11 14:34 15:00 16:00 Pulse 69 68 Resp 24 B/P (MAP) 110/71 118/74 (89) Pulse Ox 100 100 O2 Delivery Ventilator Ventilator Mechanical Ventilator 01/26/19 01/26/19 01/26/19 01/26/19 16:00 16:06 17:00 18:00 Pulse 72 68 68 Resp 24 24 24 B/P (MAP) 120/71 (87) 126/72 (90) 106/63 (77) Pulse Ox 100 100 100 100 O2 Delivery Ventilator Ventilator Ventilator Ventilator 01/26/19 01/26/19 01/26/19 01/26/19 18:46 19:00 19:11 19:46 Pulse 98 Resp 24 24 24 B/P (MAP) 106/63 (77) Pulse Ox 100 100 100 100 O2 Delivery Ventilator Ventilator Ventilator Ventilator 01/26/19 01/26/19 01/26/19 01/26/19 19:59 20:00 20:00 21:00 Temp 99.1 99.1 Pulse 65 69 Resp 24 24 24 B/P (MAP) 101/75 (84) 120/76 (91) Pulse Ox 10 95 O2 Delivery Ventilator Mechanical Ventilator Ventilator O2 Flow Rate 15.0 01/26/19 01/26/19 01/26/19 01/26/19 21:10 22:00 23:00 23:17 Pulse 72 68 64 Resp 24 24 B/P (MAP) 104/66 (79) 97/63 (74) Pulse Ox 98 100 100 O2 Delivery Ventilator Ventilator Ventilator 01/27/19 01/27/19 01/27/19 01/27/19 00:00 00:00 01:00 01:45 Temp 98.8 98.8 Pulse 63 67 Resp 24 24 B/P (MAP) 93/61 (72) 98/62 (74) Pulse Ox 99 100 100 O2 Delivery Mechanical Ventilator Ventilator Ventilator Ventilator O2 Flow Rate 15.0 01/27/19 01/27/19 01/27/19 01/27/19 02:00 03:00 03:10 04:01 Pulse 64 68 Resp 24 24 B/P (MAP) 95/55 (68) 100/62 (75) Pulse Ox 98 95 99 O2 Delivery Ventilator Ventilator Ventilator Mechanical Ventilator O2 Flow Rate 15.0 01/27/19 01/27/19 01/27/19 01/27/19 04:03 05:00 05:51 06:00 Temp 98.7 98.7 Pulse 67 66 74 Resp 24 24 24 B/P (MAP) 109/68 (82) 109/71 (84) 103/68 (80) Pulse Ox 100 100 100 100 O2 Delivery Ventilator Ventilator Ventilator Ventilator 01/27/19 01/27/19 01/27/19 01/27/19 08:00 08:06 08:06 08:06 Pulse 74 74 74 B/P (MAP) 103/68 103/68 103/68 O2 Delivery Mechanical Ventilator O2 Flow Rate 15.0 01/27/19 01/27/19 08:32 12:00 Pulse Ox 99 99 O2 Delivery Ventilator Intake and Output 01/26/19 01/26/19 01/27/19 14:59 22:59 06:59 Intake Total 300 ml 2456.72 ml 2901 ml Output Total 575 ml 455 ml 475 ml Balance -275 ml 2001.72 ml 2426 ml KANNAN SO MD Jan 27, 2019 14:11
[2019-01-27 14:12] LABS: BASE EXCESS ABG -5 mmol/L (-3-3); FIO2 ABG 40%; HCO3 ABG 19 mmol/L (21-28); PCO2 ABG 32 mmHg (35-46); PO2 ABG 168 mmHg (65-108); SAT O2 ABG 99 % (92-99)
[2019-01-27 14:15] LABS: HEMATOCRIT 37.8 % (39.0-53.0); HEMOGLOBIN 12.7 g/dL (13.0-17.5); RED BLOOD COUNT 4.03 x10^6/uL (4.30-5.70); RED CELL DISTRIBUTION WIDTH 13.7 % (11.5-14.5); WHITE BLOOD COUNT 11.1 x10^3/uL (4.0-11.0)
[2019-01-27 14:20] LABS: ALBUMIN 2.4 g/dL (3.4-5.0); ALBUMIN/GLOBULIN RATIO 0.8 (1.0-1.7); CALCIUM 8.1 mg/dL (8.5-10.1); CREATININE 0.9 mg/dL (0.7-1.3); MAGNESIUM 1.9 mg/dL (1.8-2.4); POTASSIUM 3.6 mmol/L (3.5-5.1); TOTAL BILIRUBIN 0.8 mg/dL (0.2-1.0); TOTAL PROTEIN 5.5 g/dL (6.4-8.2)
[2019-01-27] MEDS: MORPHINE SULFATE 2 MG/ML VIAL. IV PRN ×2 (19:21→21:27)
[2019-01-27] MEDS: ATORVASTATIN CALCIUM 20 MG TABLET PO SCH (21:00)
--- NOTE | 2019-01-27 21:47 | RAD ---
CHEST AP ONLY History: Shortness of breath.. Comparison: January 27 in the morning. Left chest tube is again identified. Endotracheal tube and feeding tube have been removed. No evidence of pneumothorax. Mild hazy opacity in both lungs, particularly in the lung bases are identified, compatible with mild infiltrate or edema. No large pleural effusion. Cardiomediastinal silhouette is stable. IMPRESSION: Development of mild edema and/or infiltrate in both lungs. No lobar airspace consolidation. Electronically signed by: Asael Carrion MD (01/27/2019 9:44 PM) [facility]
[2019-01-28] VITALS (15 sets, daily range): BP systolic 98–163; BP diastolic 50–92
--- NOTE | 2019-01-28 00:18 | NUR ---
Pt HR changed from SR to AFib/ AFlutter. EKG ordered.
--- NOTE | 2019-01-28 00:43 | EKG ---
[facility] [address] [place] [address] Test Date: 2019-01-28 Test Time: 00:45:59 Pat Name: TOMI DOZIER Department: Room: 104 1 Gender: M Flat Surfacer: LORENA : 1955 Requested By: ISAMAR CHEUNG Order Number: [id number] Reading MD: Measurements Intervals [place] Rate: 101 P: SD: QRS: 81 QRSD: 82 T: -11 QT: 370 QTc: 481 Interpretive Statements IRREGULAR RHYTHM, NO P-WAVE FOUND LOW LIMB LEAD VOLTAGE QRS(T) CONTOUR ABNORMALITY CONSISTENT WITH SEPTAL INFARCT AGE UNDETERMINED T ABNORMALITY IN INFERIOR LEADS ABNORMAL ECG RI6.01 Compared to ECG 01/23/2019 17:32:27 Myocardial infarct finding now present T-wave abnormality now present Sinus rhythm no longer present Possible ischemia no longer present
--- NOTE | 2019-01-28 00:46 | NUR ---
Dr Aaron called with update. No new orders.Will re-evaluate in am.
[2019-01-28] MEDS: MORPHINE SULFATE 2 MG/ML VIAL. IV PRN ×3 (01:26→21:00)
[2019-01-28 04:50] LABS: BASO % 0 % (0-3); EOS % 0 % (0-3); HEMATOCRIT 35.1 % (39.0-53.0); HEMOGLOBIN 12.2 g/dL (13.0-17.5); LYMPH # 0.9 x10^3/uL (1.0-4.8); LYMPH % 9 % (24-48); MEAN CORPUSCULAR HEMOGLOBIN 32 pg (25-35); MEAN CORPUSCULAR HGB CONC 35 g/dL (31-37); MEAN CORPUSCULAR VOLUME 93 fL (79-100); MONO # 0.8 x10^3/uL (0.0-1.1); MONO % 8 % (0-9); NEUT # 8.8 x10^3/uL (1.8-7.7); NEUT % 83 % (31-73); PLATELET COUNT 119 x10^3/uL (140-400); RED BLOOD COUNT 3.78 x10^6/uL (4.30-5.70); RED CELL DISTRIBUTION WIDTH 13.7 % (11.5-14.5); WHITE BLOOD COUNT 10.7 x10^3/uL (4.0-11.0)
[2019-01-28 05:39] LABS: CALCIUM 8.1 mg/dL (8.5-10.1); CREATININE 0.8 mg/dL (0.7-1.3); GFR 97.3; POTASSIUM 3.6 mmol/L (3.5-5.1)
[2019-01-28] MEDS: PIPERACILLIN/TAZOBACTAM 3.375 GM in IV NORMAL SALINE 50ML 50 ML IV SCH ×3 (05:56→18:00)
[2019-01-28] MEDS: IV NORMAL SALINE 1000ML BAG 1,000 ML IV SCH ×3 (05:56→17:33)
[2019-01-28] MEDS: HEPARIN for SUB-Q USE 5,000 UNIT/ML VIAL. SQ SCH ×2 (09:00→21:07)
--- NOTE | 2019-01-28 09:10 | PDOC ---
PROGRESS NOTES Chief Complaint Chief Complaint CAD s/p stat PCI/LHC with stents to left circ (x 3 stents) EXTUBATED 01/27/19 s/p out of hospital cardiac arrest, V Fib with ROSC after 33 mins CPR and 5 defibrillations given Post intubation APICAL PTX s/p chest tube (01/24) Respi failure sec to above # 1 on IPPV Asthma SIRS sec to # 1, no infection REactive leukocytosis CRITCAL hypokalemia, 2,8 HYPERmagnesemia 2.7 MARIANNE post code MIld hypochloremia 101 History of Present Illness History of Present Illness extubated 01/27 after 5 days intubation for cardiac arrest s.p hypothermia prot ocol HE has a weak voice, smiles, follows simple instructions and recognizes VS good, not on any pressors LAbs good SOme prostate sxs? 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 ETT, OGT NECK: Supple. No JVD. LUNGS: Decreased at bases. Left chest tube HEART: S1, S2. ABDOMEN: Minimally distended, + BS bowel sounds. He has a well-approximated incision in the left lower quadrant. GENITOURINARY: العلي is in place. EXTREMITIES: No clubbing or cyanosis. No gross edema. SCDs SKIN: Warm to touch without signs of rash. NEUROLOGICAL: Sedated, opens eyes some to voice PIVs are clean General: Other (intubated and sedated.) Heart: Regular rate Lungs: Crackles Abdomen: Normal bowel sounds Extremities: No clubbing, No cyanosis, No edema, Normal pulses Skin: No breakdown, No significant lesion Labs LABS Laboratory Tests Test 01/27/19 12:53 01/27/19 13:27 01/28/19 04:30 O2 Saturation 99 % (92-99) Arterial Blood pH 7.39 (7.35-7.45) Arterial Blood pCO2 at Patient Temp 32 mmHg (35-46) Arterial Blood pO2 at Patient Temp 168 mmHg (65-108) Arterial Blood HCO3 19 mmol/L (21-28) Arterial Blood Base Excess -5 mmol/L (-3-3) FiO2 40% White Blood Count 11.1 x10^3/uL (4.0-11.0) 10.7 x10^3/uL (4.0-11.0) Red Blood Count 4.03 x10^6/uL (4.30-5.70) 3.78 x10^6/uL (4.30-5.70) Hemoglobin 12.7 g/dL (13.0-17.5) 12.2 g/dL (13.0-17.5) Hematocrit 37.8 % (39.0-53.0) 35.1 % (39.0-53.0) Mean Corpuscular Volume 94 fL (79-100) 93 fL (79-100) Mean Corpuscular Hemoglobin 32 pg (25-35) 32 pg (25-35) Mean Corpuscular Hemoglobin Concent 34 g/dL (31-37) 35 g/dL (31-37) Red Cell Distribution Width 13.7 % (11.5-14.5) 13.7 % (11.5-14.5) Platelet Count 123 x10^3/uL (140-400) 119 x10^3/uL (140-400) Sodium Level 142 mmol/L (136-145) 143 mmol/L (136-145) Potassium Level 3.6 mmol/L (3.5-5.1) 3.6 mmol/L (3.5-5.1) Chloride Level 109 mmol/L (98-107) 110 mmol/L (98-107) Carbon Dioxide Level 23 mmol/L (21-32) 22 mmol/L (21-32) Anion Gap 10 (6-14) 11 (6-14) Blood Urea Nitrogen 20 mg/dL (8-26) 18 mg/dL (8-26) Creatinine 0.9 mg/dL (0.7-1.3) 0.8 mg/dL (0.7-1.3) Estimated GFR (Cockcroft-Gault) 85.0 97.3 BUN/Creatinine Ratio 22 (6-20) Glucose Level 112 mg/dL (70-99) 90 mg/dL (70-99) Calcium Level 8.1 mg/dL (8.5-10.1) 8.1 mg/dL (8.5-10.1) Magnesium Level 1.9 mg/dL (1.8-2.4) Total Bilirubin 0.8 mg/dL (0.2-1.0) Aspartate Amino Transf (AST/SGOT) 153 U/L (15-37) Alanine Aminotransferase (ALT/SGPT) 115 U/L (16-63) Alkaline Phosphatase 87 U/L (46-116) Total Protein 5.5 g/dL (6.4-8.2) Albumin 2.4 g/dL (3.4-5.0) Albumin/Globulin Ratio 0.8 (1.0-1.7) Neutrophils (%) (Auto) 83 % (31-73) Lymphocytes (%) (Auto) 9 % (24-48) Monocytes (%) (Auto) 8 % (0-9) Eosinophils (%) (Auto) 0 % (0-3) Basophils (%) (Auto) 0 % (0-3) Neutrophils # (Auto) 8.8 x10^3/uL (1.8-7.7) Lymphocytes # (Auto) 0.9 x10^3/uL (1.0-4.8) Monocytes # (Auto) 0.8 x10^3/uL (0.0-1.1) Eosinophils # (Auto) 0.0 x10^3/uL (0.0-0.7) Basophils # (Auto) 0.0 x10^3/uL (0.0-0.2) Review of Systems Review of Systems weak, post extubation ,soft voice,m limited rOS but he doesnt complain of anything- at bedside Assessment and Plan Assessmemt and Plan Problems Medical Problems: (1) Cardiorespiratory arrest Status: Acute (2) Elevated liver function tests Status: Acute (3) Elevated troponin Status: Acute (4) Hyperglycemia Status: Acute (5) Hypokalemia Status: Acute (6) Metabolic acidosis Status: Acute (7) Renal insufficiency Status: Acute (8) Ribs, multiple fractures Status: Acute (9) Severe sepsis Status: Acute (10) STEMI (ST elevation myocardial infarction) Status: Acute (11) Traumatic pneumothorax Status: Acute Comment Review of Relevant I have reviewed the following items yadi (where applicable) has been applied. Labs Laboratory Tests Test 01/26/19 23:56 01/27/19 05:34 01/27/19 12:53 01/27/19 13:27 Glucose (Fingerstick) 124 mg/dL (70-99) O2 Saturation 99 % (92-99) 99 % (92-99) Arterial Blood pH 7.41 (7.35-7.45) 7.39 (7.35-7.45) Arterial Blood pCO2 at Patient Temp 35 mmHg (35-46) 32 mmHg (35-46) Arterial Blood pO2 at Patient Temp 165 mmHg (65-108) 168 mmHg (65-108) Arterial Blood HCO3 22 mmol/L (21-28) 19 mmol/L (21-28) Arterial Blood Base Excess -2 mmol/L (-3-3) -5 mmol/L (-3-3) FiO2 40 40% White Blood Count 11.1 x10^3/uL (4.0-11.0) Red Blood Count 4.03 x10^6/uL (4.30-5.70) Hemoglobin 12.7 g/dL (13.0-17.5) Hematocrit 37.8 % (39.0-53.0) Mean Corpuscular Volume 94 fL (79-100) Mean Corpuscular Hemoglobin 32 pg (25-35) Mean Corpuscular Hemoglobin Concent 34 g/dL (31-37) Red Cell Distribution Width 13.7 % (11.5-14.5) Platelet Count 123 x10^3/uL (140-400) Sodium Level 142 mmol/L (136-145) Potassium Level 3.6 mmol/L (3.5-5.1) Chloride Level 109 mmol/L (98-107) Carbon Dioxide Level 23 mmol/L (21-32) Anion Gap 10 (6-14) Blood Urea Nitrogen 20 mg/dL (8-26) Creatinine 0.9 mg/dL (0.7-1.3) Estimated GFR (Cockcroft-Gault) 85.0 BUN/Creatinine Ratio 22 (6-20) Glucose Level 112 mg/dL (70-99) Calcium Level 8.1 mg/dL (8.5-10.1) Magnesium Level 1.9 mg/dL (1.8-2.4) Total Bilirubin 0.8 mg/dL (0.2-1.0) Aspartate Amino Transf (AST/SGOT) 153 U/L (15-37) Alanine Aminotransferase (ALT/SGPT) 115 U/L (16-63) Alkaline Phosphatase 87 U/L (46-116) Total Protein 5.5 g/dL (6.4-8.2) Albumin 2.4 g/dL (3.4-5.0) Albumin/Globulin Ratio 0.8 (1.0-1.7) Test 01/28/19 04:30 White Blood Count 10.7 x10^3/uL (4.0-11.0) Red Blood Count 3.78 x10^6/uL (4.30-5.70) Hemoglobin 12.2 g/dL (13.0-17.5) Hematocrit 35.1 % (39.0-53.0) Mean Corpuscular Volume 93 fL (79-100) Mean Corpuscular Hemoglobin 32 pg (25-35) Mean Corpuscular Hemoglobin Concent 35 g/dL (31-37) Red Cell Distribution Width 13.7 % (11.5-14.5) Platelet Count 119 x10^3/uL (140-400) Neutrophils (%) (Auto) 83 % (31-73) Lymphocytes (%) (Auto) 9 % (24-48) Monocytes (%) (Auto) 8 % (0-9) Eosinophils (%) (Auto) 0 % (0-3) Basophils (%) (Auto) 0 % (0-3) Neutrophils # (Auto) 8.8 x10^3/uL (1.8-7.7) Lymphocytes # (Auto) 0.9 x10^3/uL (1.0-4.8) Monocytes # (Auto) 0.8 x10^3/uL (0.0-1.1) Eosinophils # (Auto) 0.0 x10^3/uL (0.0-0.7) Basophils # (Auto) 0.0 x10^3/uL (0.0-0.2) Sodium Level 143 mmol/L (136-145) Potassium Level 3.6 mmol/L (3.5-5.1) Chloride Level 110 mmol/L (98-107) Carbon Dioxide Level 22 mmol/L (21-32) Anion Gap 11 (6-14) Blood Urea Nitrogen 18 mg/dL (8-26) Creatinine 0.8 mg/dL (0.7-1.3) Estimated GFR (Cockcroft-Gault) 97.3 Glucose Level 90 mg/dL (70-99) Calcium Level 8.1 mg/dL (8.5-10.1) Laboratory Tests Test 01/27/19 12:53 01/27/19 13:27 01/28/19 04:30 O2 Saturation 99 % (92-99) Arterial Blood pH 7.39 (7.35-7.45) Arterial Blood pCO2 at Patient Temp 32 mmHg (35-46) Arterial Blood pO2 at Patient Temp 168 mmHg (65-108) Arterial Blood HCO3 19 mmol/L (21-28) Arterial Blood Base Excess -5 mmol/L (-3-3) FiO2 40% White Blood Count 11.1 x10^3/uL (4.0-11.0) 10.7 x10^3/uL (4.0-11.0) Red Blood Count 4.03 x10^6/uL (4.30-5.70) 3.78 x10^6/uL (4.30-5.70) Hemoglobin 12.7 g/dL (13.0-17.5) 12.2 g/dL (13.0-17.5) Hematocrit 37.8 % (39.0-53.0) 35.1 % (39.0-53.0) Mean Corpuscular Volume 94 fL (79-100) 93 fL (79-100) Mean Corpuscular Hemoglobin 32 pg (25-35) 32 pg (25-35) Mean Corpuscular Hemoglobin Concent 34 g/dL (31-37) 35 g/dL (31-37) Red Cell Distribution Width 13.7 % (11.5-14.5) 13.7 % (11.5-14.5) Platelet Count 123 x10^3/uL (140-400) 119 x10^3/uL (140-400) Sodium Level 142 mmol/L (136-145) 143 mmol/L (136-145) Potassium Level 3.6 mmol/L (3.5-5.1) 3.6 mmol/L (3.5-5.1) Chloride Level 109 mmol/L (98-107) 110 mmol/L (98-107) Carbon Dioxide Level 23 mmol/L (21-32) 22 mmol/L (21-32) Anion Gap 10 (6-14) 11 (6-14) Blood Urea Nitrogen 20 mg/dL (8-26) 18 mg/dL (8-26) Creatinine 0.9 mg/dL (0.7-1.3) 0.8 mg/dL (0.7-1.3) Estimated GFR (Cockcroft-Gault) 85.0 97.3 BUN/Creatinine Ratio 22 (6-20) Glucose Level 112 mg/dL (70-99) 90 mg/dL (70-99) Calcium Level 8.1 mg/dL (8.5-10.1) 8.1 mg/dL (8.5-10.1) Magnesium Level 1.9 mg/dL (1.8-2.4) Total Bilirubin 0.8 mg/dL (0.2-1.0) Aspartate Amino Transf (AST/SGOT) 153 U/L (15-37) Alanine Aminotransferase (ALT/SGPT) 115 U/L (16-63) Alkaline Phosphatase 87 U/L (46-116) Total Protein 5.5 g/dL (6.4-8.2) Albumin 2.4 g/dL (3.4-5.0) Albumin/Globulin Ratio 0.8 (1.0-1.7) Neutrophils (%) (Auto) 83 % (31-73) Lymphocytes (%) (Auto) 9 % (24-48) Monocytes (%) (Auto) 8 % (0-9) Eosinophils (%) (Auto) 0 % (0-3) Basophils (%) (Auto) 0 % (0-3) Neutrophils # (Auto) 8.8 x10^3/uL (1.8-7.7) Lymphocytes # (Auto) 0.9 x10^3/uL (1.0-4.8) Monocytes # (Auto) 0.8 x10^3/uL (0.0-1.1) Eosinophils # (Auto) 0.0 x10^3/uL (0.0-0.7) Basophils # (Auto) 0.0 x10^3/uL (0.0-0.2) Microbiology 01/23/19 Blood Culture - Preliminary, Resulted NO GROWTH AFTER 4 DAYS Medications Current Medications Sodium Chloride 1,000 ml @ 1,000 mls/hr Q1H IV Last administered on 01/23/19at 17:23; Start 01/23/19 at 15:13; Stop 01/23/19 at 16:12; Status DC Sodium Bicarbonate (Sodium Bicarb Adult 8.4% Syr) 100 meq 1X ONCE IV Last admi nistered on 01/23/19at 17:23; Start 01/23/19 at 15:30; Stop 01/23/19 at 15:59; Status DC Midazolam HCl (Versed) 5 mg STK-MED ONCE .ROUTE ; Start 01/23/19 at 15:25; Stop 01/23/19 at 15:25; Status DC Propofol 50 ml @ As Directed STK-MED ONCE IV ; Start 01/23/19 at 15:25; Stop 01/23/19 at 15:25; Status DC Calcium Gluconate (Calcium Gluconate) 1,000 mg 1X ONCE IVP Last administered on 01/23/19at 16:12; Start 01/23/19 at 16:00; Stop 01/23/19 at 16:01; Status DC Dextrose (Dextrose 50%-Water Syringe) 25 gm 1X ONCE IV ; Start 01/23/19 at 15:45; Stop 01/23/19 at 15:53; Status DC Insulin Human Regular (HumuLIN R VIAL) 10 unit 1X ONCE IV ; Start 01/23/19 at 15:45; Stop 01/23/19 at 15:53; Status DC Iohexol (Omnipaque 350 Mg/ml) 90 ml 1X ONCE IV Last administered on 01/23/19at 16:08; Start 01/23/19 at 15:45; Stop 01/23/19 at 16:00; Status DC Amiodarone HCl 900 mg/Dextrose 518 ml @ 0 mls/hr CONT PRN IV SEE I/O RECORD Last administered on 01/23/19at 17:06; Start 01/23/19 at 16:00; Stop 01/23/19 at 17:06; Status DC Piperacillin Sod/ Tazobactam Sod 3.375 gm/Sodium Chloride 50 ml @ 100 mls/hr 1X ONCE IV Last administered on 01/23/19at 22:19; Start 01/23/19 at 16:00; Stop 01/23/19 at 16:29; Status DC Vancomycin HCl 250 ml @ 250 mls/hr 1X ONCE IV ; Start 01/23/19 at 16:00; Stop 01/23/19 at 16:24; Status DC Fentanyl Citrate (Fentanyl 2ml Vial) 100 mcg 1X ONCE IV ; Start 01/23/19 at 16:15; Stop 01/23/19 at 16:24; Status DC Midazolam HCl (Versed) 2 mg 1X ONCE IV ; Start 01/23/19 at 16:15; Stop 01/23/19 at 16:24; Status DC Magnesium Sulfate/ Dextrose 100 ml @ 100 mls/hr 1X ONCE IV ; Start 01/23/19 at 16:15; Stop 01/23/19 at 17:14; Status DC Buspirone HCl (Buspar) 30 mg Q8H NG Last administered on 01/25/19at 08:47; Start 01/23/19 at 17:00; Stop 01/25/19 at 09:01; Status DC Acetaminophen (Tylenol) 650 mg Q4H NG Last administered on 01/25/19at 11:11; Start 01/23/19 at 16:15; Stop 01/26/19 at 01:00; Status DC Artificial Tears (Artificial Tears) 1 drop Q6HRS OU Last administered on 01/25/19at 23:53; Start 01/23/19 at 18:00; Stop 01/26/19 at 01:00; Status DC Artificial Tears (Artificial Tears) 1 drop PRN Q15MIN PRN OU DRY EYE; Start 01/23/19 at 16:15; Stop 01/26/19 at 01:00; Status DC Heparin Sodium (Porcine) (Heparin Sodium) 5,000 unit BID SQ ; Start 01/23/19 at 21:00; Stop 01/23/19 at 16:53; Status DC Pantoprazole Sodium (PROTONIX VIAL for IV PUSH) 40 mg DAILY IVP ; Start 01/24/19 at 09:00; Stop 01/23/19 at 20:27; Status DC Fentanyl Citrate 30 ml @ 0 mls/hr CONT PRN IV PER PROTOCOL.; Start 01/23/19 at 16:15; Stop 01/23/19 at 18:01; Status DC Propofol 100 ml @ 0 mls/hr CONT PRN IV PER PROTOCOL.; Start 01/23/19 at 16:15; Stop 01/23/19 at 20:27; Status DC Midazolam HCl 100 ml @ 0 mls/hr CONT PRN IV PER PROTOCOL. Last administered on 01/23/19at 16:50; Start 01/23/19 at 16:15; Stop 01/23/19 at 20:26; Status DC Vecuronium Cuervo (Norcuron Bolus) 7 mg PRN Q1HR PRN IV SHIVERING; Start 12/29 12/15 at 16:15; Stop 01/23/19 at 20:28; Status DC Pantoprazole Sodium (PROTONIX VIAL for IV PUSH) 40 mg DAILYAC IVP ; Start 12/29 01/15 at 07:30; Stop 01/23/19 at 16:25; Status DC Pantoprazole Sodium (PROTONIX VIAL for IV PUSH) 40 mg 1X ONCE IVP Last admin istered on 01/23/19at 23:43; Start 01/23/19 at 17:00; Stop 01/23/19 at 17:01; Status DC Enoxaparin Sodium (Lovenox 40mg Syringe) 40 mg Q24H SQ ; Start 01/23/19 at 21:00; Stop 01/23/19 at 23:59; Status DC Sodium Chloride 1,000 ml @ 150 mls/hr Q6H40M IV Last administered on 01/24/19at 04:43; Start 01/23/19 at 16:11; Stop 01/24/19 at 11:40; Status DC Potassium Chloride/Water 100 ml @ 100 mls/hr Q1H IV Last administered on 01/23/19at 19:06; Start 01/23/19 at 17:00; Stop 01/23/19 at 20:59; Status DC Potassium Chloride/Water 100 ml @ 100 mls/hr Q1H IV ; Start 01/23/19 at 22:00; Stop 01/23/19 at 23:59; Status DC Vancomycin HCl 1.75 gm/Sodium Chloride 500 ml @ 250 mls/hr 1X ONCE IV Last administered on 01/23/19at 23:42; Start 01/23/19 at 18:00; Stop 01/23/19 at 19:59; Status DC Aspirin (Aspirin Rectal Supp) 300 mg 1X ONCE OK Last administered on 01/23/19at 20:27; Start 01/23/19 at 17:00; Stop 01/23/19 at 17:01; Status DC Lidocaine HCl (Lidocaine 1% 20ml Vial) 20 ml STK-MED ONCE .ROUTE ; Start 01/23/19 at 16:37; Stop 01/23/19 at 16:37; Status DC Heparin Sodium/ Sodium Chloride 1,000 ml @ As Directed STK-MED ONCE .ROUTE ; Start 01/23/19 at 16:37; Stop 01/23/19 at 16:38; Status DC Heparin Sodium/ Dextrose 500 ml @ 0 mls/hr CONT PRN IV SEE I/O RECORD; Start 01/23/19 at 17:00; Stop 01/23/19 at 23:27; Status DC Midazolam HCl (Versed) 5 mg STK-MED ONCE .ROUTE ; Start 01/23/19 at 17:00; Stop 01/23/19 at 17:00; Status DC Sodium Chloride 1,000 ml @ 1,000 mls/hr 1X ONCE IV Last administered on 01/23/19at 18:58; Start 01/23/19 at 17:30; Stop 01/23/19 at 18:29; Status DC Propofol 50 ml @ 2.1 mls/hr 1X STAT IV Last administered on 01/23/19at 18:51; Start 01/23/19 at 17:17; Stop 01/23/19 at 20:27; Status DC Midazolam HCl (Versed) 5 mg 1X ONCE IV Last administered on 01/23/19at 18:18; Start 01/23/19 at 17:30; Stop 01/23/19 at 17:31; Status DC Fentanyl Citrate 30 ml @ 0 mls/hr CONT PRN PRN IV PER PROTOCOL; Start 01/23/19 at 17:45; Status Cancel Naloxone HCl (Narcan) 0.4 mg PRN Q2MIN PRN IV SEE INSTRUCTIONS; Start 01/23/19 at 17:45 Sodium Chloride 1,000 ml @ 25 mls/hr Q24H IV Last administered on 01/26/19at 15:11; Start 01/23/19 at 17:33 Midazolam HCl (Versed) 5 mg 1X ONCE IV Last administered on 01/23/19at 19:02; Start 01/23/19 at 18:15; Stop 01/23/19 at 18:16; Status DC Amiodarone HCl (Cordarone) 150 mg STK-MED ONCE .ROUTE ; Start 01/23/19 at 18:11; Stop 01/23/19 at 18:12; Status DC Iodixanol (Visipaque 320) 100 ml STK-MED ONCE .ROUTE ; Start 01/23/19 at 18:19; Stop 01/23/19 at 18:19; Status DC Bivalirudin (Angiomax) 250 mg STK-MED ONCE IV ; Start 01/23/19 at 18:20; Stop 01/23/19 at 18:20; Status DC Nitroglycerin (Nitroglycerin) 200 mcg 1X ONCE IART Last administered on 01/23/19 19:10; Start 01/23/19 at 18:45; Stop 01/23/19 at 18:56; Status DC Heparin Sodium/ Sodium Chloride (HEPARIN for ARTERIAL LINE FLUSH) 1,000 unit 1X ONCE IART Last administered on 01/23/19 19:10; Start 01/23/19 at 18:45; Stop 01/23/19 at 18:56; Status DC Heparin Sodium/ Sodium Chloride (HEPARIN for ARTERIAL LINE FLUSH) 1,000 unit 1X ONCE IART Last administered on 01/23/19at 19:10; Start 01/23/19 at 18:45; Stop 01/23/19 at 18:56; Status DC Iodixanol (Visipaque 320) 100 ml 1X ONCE IART Last administered on 01/23/19 19:10; Start 01/23/19 at 18:45; Stop 01/23/19 at 18:56; Status DC Bivalirudin (Angiomax) 250 mg 1X ONCE IV Last administered on 01/23/19 19:10; Start 01/23/19 at 18:45; Stop 01/23/19 at 18:56; Status DC Lidocaine HCl (Lidocaine 1% 20ml Vial) 10 ml 1X ONCE INJ Last administered on 01/23/19 19:10; Start 01/23/19 at 18:45; Stop 01/23/19 at 18:56; Status DC Amiodarone HCl 150 mg/Dextrose 103 ml @ 0 mls/hr 1X ONCE IV Last administered on 8/27/19at 19:10; Start 01/23/19 at 19:00; Stop 01/23/19 at 19:01; Status DC Info (CONTRAST GIVEN -- Rx MONITORING) 1 each PRN DAILY PRN MC SEE COMMENTS; Start 01/23/19 at 19:00; Stop 01/25/19 at 18:59; Status DC Heparin Sodium/ Sodium Chloride 500 ml @ As Directed STK-MED ONCE .ROUTE ; Start 01/23/19 at 19:02; Stop 01/23/19 at 19:03; Status DC Sodium Chloride (Normal Saline Flush) 3 ml QSHIFT PRN IV AFTER MEDS AND BLOOD DRAWS; Start 01/23/19 at 19:30 Sodium Chloride 1,000 ml @ 75 mls/hr [id number] IV Last administered on 01/23/19at 20:27; Start 01/23/19 at 19:17; Stop 01/24/19 at 03:16; Status DC Aspirin (Ecotrin) 325 mg DAILYWBKFT PO Last administered on 01/27/19at 08:06; Start 01/24/19 at 08:00 Clopidogrel Bisulfate (Plavix) 75 mg DAILYWBKFT PO Last administered on 01/27/19at 08:06; Start 01/24/19 at 08:00 Acetaminophen (Tylenol) 650 mg PRN Q6HRS PRN PO MILD PAIN / TEMP Last administered on 01/27/19at 11:01; Start 01/23/19 at 19:30 Fentanyl Citrate (Fentanyl 2ml Vial) 50 mcg PRN Q1HR PRN IV MODERATE OR SEVERE PAIN; Start 01/23/19 at 19:30; Stop 01/26/19 at 00:59; Status DC Nitroglycerin (Nitrostat) 0.4 mg PRN Q5MIN PRN SL CHEST PAIN; Start 01/23/19 at 19:30 Amiodarone HCl 150 mg/Dextrose 103 ml @ 600 mls/hr 1X PRN PRN IV FOR VENTRICULAR TACHYCARDIA; Start 01/23/19 at 19:30 Lidocaine HCl (Lidocaine HCl 2% Abboject) 100 mg 1X PRN PRN IV FOR VENTRICULAR TACHYCARDIA; Start 01/23/19 at 19:30 Atropine Sulfate (ATROPINE 0.5mg SYRINGE) 0.5 mg PRN 1X PRN IV BRADYCARDIA; Start 01/23/19 at 19:30 Fentanyl Citrate (Fentanyl 2ml Vial) 100 mcg 1X ONCE IV Last administered on 01/23/19 20:27; Start 01/23/19 at 19:45; Stop 01/23/19 at 20:25; Status DC Midazolam HCl (Versed) 2 mg 1X ONCE IV ; Start 01/23/19 at 19:45; Stop 01/23/19 at 20:25; Status DC Magnesium Sulfate/ Dextrose 100 ml @ 100 mls/hr 1X ONCE IV Last administered on 01/23/19at 20:46; Start 01/23/19 at 19:45; Stop 01/23/19 at 20:44; Status DC Heparin Sodium (Porcine) (Heparin Sodium) 5,000 unit BID SQ Last administered on 01/27/19 21:29; Start 01/23/19 at 21:00 Pantoprazole Sodium (PROTONIX VIAL for IV PUSH) 40 mg DAILY IVP Last administered on 01/27/19 08:06; Start 01/24/19 at 09:00 Fentanyl Citrate 30 ml @ 0 mls/hr CONT PRN IV PER PROTOCOL. Last administered on 01/25/19at 16:54; Start 01/23/19 at 19:45; Stop 01/26/19 at 01:00; Status DC Propofol 100 ml @ 0 mls/hr CONT PRN IV PER PROTOCOL.; Start 01/23/19 at 19:45; Stop 01/26/19 at 01:00; Status DC Midazolam HCl 100 ml @ 0 mls/hr CONT PRN IV PER PROTOCOL. Last administered on 01/25/19at 23:11; Start 01/23/19 at 19:45; Stop 01/26/19 at 01:00; Status DC Vecuronium Cuervo (Norcuron Bolus) 7 mg PRN Q1HR PRN IV SHIVERING Last administered on 01/24/19at 21:19; Start 01/23/19 at 19:45 Norepinephrine Bitartrate 250 ml @ 13.608 mls/ hr CONT PRN IV SEE I/O RECORD; Start 01/23/19 at 20:45 Sodium Chloride 500 ml @ 500 mls/hr 1X ONCE IV Last administered on 01/23/19at 20:57; Start 01/23/19 at 20:45; Stop 01/23/19 at 21:44; Status DC Daptomycin 440 mg/ Sodium Chloride 50 ml @ 100 mls/hr Q24H IV Last administered on 01/25/19at 23:11; Start 01/23/19 at 23:00; Stop 01/26/19 at 07:52; Status DC Linezolid/Dextrose 300 ml @ 300 mls/hr Q12HR IV Last administered on 01/25/19at 21:03; Start 01/24/19 at 09:00; Stop 01/26/19 at 07:52; Status DC Doxycycline Hyclate 100 mg/ Dextrose 100 ml @ 50 mls/hr Q12HR IV Last administered on 01/27/19at 21:29; Start 01/24/19 at 09:00 Doxycycline Hyclate 100 mg/ Dextrose 100 ml @ 50 mls/hr 1X ONCE IV Last administered on 01/23/19at 23:42; Start 01/23/19 at 23:30; Stop 01/24/19 at 01:29; Status DC Linezolid/Dextrose 300 ml @ 300 mls/hr ONCE ONCE IV Last administered on 01/23/19at 23:42; Start 01/23/19 at 23:00; Stop 01/23/19 at 23:59; Status DC Insulin Human Regular 150 unit/ Sodium Chloride 151.5 ml @ 0 mls/hr CONT PRN IV SEE I/O RECORD; Start 01/23/19 at 23:15; Stop 01/26/19 at 08:41; Status DC Magnesium Sulfate 50 ml @ 25 mls/hr 1X ONCE IV Last administered on 01/24/19at 08:29; Start 01/24/19 at 06:45; Stop 01/24/19 at 08:44; Status DC Piperacillin Sod/ Tazobactam Sod 3.375 gm/Sodium Chloride 50 ml @ 100 mls/hr Q6HRS IV Last administered on 01/28/19at 05:56; Start 01/24/19 at 08:00 Atorvastatin Calcium (Lipitor) 20 mg QHS PO Last administered on 01/26/19at 21:10; Start 01/24/19 at 21:00 Sodium Chloride 1,000 ml @ 100 mls/hr Q10H IV Last administered on 01/28/19at 05:56; Start 01/24/19 at 11:45 Amiodarone HCl 900 mg/Dextrose 518 ml @ 17 mls/hr 30H29M IV ; Start 01/24/19 at 15:00; Status Cancel Magnesium Sulfate/ Dextrose 100 ml @ 100 mls/hr 1X ONCE IV Last administered on 01/24/19at 13:52; Start 01/24/19 at 13:30; Stop 01/24/19 at 14:29; Status DC Lidocaine/Sodium Bicarbonate (Buffered Lidocaine 1%) 3 ml STK-MED ONCE .ROUTE ; Start 01/24/19 at 15:03; Stop 01/24/19 at 15:04; Status DC Amiodarone HCl 900 mg/Dextrose 518 ml @ 33 mls/hr CONT PRN IV SEE I/O RECORD Last administered on 01/24/19at 16:09; Start 01/24/19 at 16:30; Stop 01/24/19 at 16:30; Status DC Potassium Chloride/Water 100 ml @ 100 mls/hr Q1H IV ; Start 01/25/19 at 09:00; Stop 01/25/19 at 10:06; Status DC Amiodarone HCl 450 mg/Dextrose 259 ml @ 17.267 mls/ hr CONT PRN IV SEE I/O RECORD Last administered on 01/26/19at 04:56; Start 01/25/19 at 13:15; Stop 01/26/19 at 13:47; Status DC Fentanyl Citrate 30 ml @ 0 mls/hr CONT PRN IV SEE PROTOCOL Last administered on 01/26/19at 18:46; Start 01/26/19 at 01:00 Propofol 100 ml @ 0 mls/hr CONT PRN IV SEE PROTOCOL; Start 01/26/19 at 01:00 Midazolam HCl 100 ml @ 0 mls/hr CONT PRN IV SEE PROTOCOL Last administered on 01/27/19at 02:20; Start 01/26/19 at 01:00 Lorazepam (Ativan Inj) 2 mg PRN Q4HRS PRN IV ANXIETY / AGITATION Last administered on 01/28/19at 03:56; Start 01/26/19 at 08:45 Morphine Sulfate (Morphine Sulfate) 2 mg PRN Q2HR PRN IV PAIN Last administered on 01/28/19at 04:56; Start 01/26/19 at 08:45 Lisinopril (Prinivil) 2.5 mg DAILY PO Last administered on 01/27/19at 08:06; Start 01/27/19 at 09:00 Metoprolol Tartrate (Lopressor) 12.5 mg BID PO Last administered on 01/27/19at 08:06; Start 01/26/19 at 21:00 Amiodarone HCl (Cordarone) 400 mg DAILY PO Last administered on 01/27/19at 08:06; Start 01/27/19 at 09:00 Amiodarone HCl (Cordarone) 400 mg 1X ONCE PO Last administered on 01/26/19at 14:34; Start 01/26/19 at 14:15; Stop 01/26/19 at 14:16; Status DC Epinephrine HCl (EPINEPHrine SYRINGE) 1 mg STK-MED ONCE .ROUTE ; Start 01/23/19 at 14:47; Stop 01/26/19 at 14:48; Status DC Sodium Bicarbonate (Sodium Bicarb Adult 8.4% Syr) 100 meq STK-MED ONCE .ROUTE ; Start 01/23/19 at 14:47; Stop 01/26/19 at 14:48; Status DC Vitals/I & O Vital Sign - Last 24 Hours 01/27/19 01/27/19 01/27/19 01/27/19 10:00 11:00 12:00 12:00 Temp 99.5 99.5 Pulse 70 70 Resp 24 24 B/P (MAP) 128/68 (88) 125/68 (87) Pulse Ox 100 100 99 O2 Delivery Ventilator Ventilator Mechanical Ventilator O2 Flow Rate 15.0 01/27/19 01/27/19 01/27/19 01/27/19 12:00 13:00 14:00 15:00 Pulse 72 68 74 74 Resp 24 24 24 24 B/P (MAP) 131/68 (89) 120/68 (85) 111/68 (82) 103/68 (80) Pulse Ox 100 100 100 100 O2 Delivery Nasal Cannula Nasal Cannula Nasal Cannula Nasal Cannula 01/27/19 01/27/19 01/27/19 01/27/19 16:00 16:00 17:00 18:00 Pulse 80 90 74 Resp 24 24 24 B/P (MAP) 140/74 (96) 145/74 (97) 103/68 (80) Pulse Ox 100 94 94 O2 Delivery Mechanical Ventilator Nasal Cannula Nasal Cannula Nasal Cannula O2 Flow Rate 15.0 2.0 2.0 2.0 01/27/19 01/27/19 01/27/19 01/27/19 19:00 19:21 19:51 20:00 Temp 98.9 98.9 Pulse 93 88 Resp 32 32 28 28 B/P (MAP) 157/88 (111) 170/98 (122) Pulse Ox 96 95 O2 Delivery Nasal Cannula Nasal Cannula O2 Flow Rate 2.0 2.0 01/27/19 01/27/19 01/27/19 01/27/19 20:00 21:00 21:29 22:00 Pulse 90 92 Resp 21 22 18 B/P (MAP) 135/74 (94) 137/78 (97) Pulse Ox 98 96 O2 Delivery Nasal Cannula Nasal Cannula Nasal Cannula O2 Flow Rate 2.0 2.0 2.0 01/27/19 01/27/19 01/28/19 01/28/19 22:20 23:00 00:00 00:00 Temp 98.8 98.8 Pulse 83 99 Resp 18 18 18 B/P (MAP) 140/77 (98) 135/75 (95) Pulse Ox 97 99 O2 Delivery Nasal Cannula Nasal Cannula Nasal Cannula O2 Flow Rate 2.0 2.0 2.0 01/28/19 01/28/19 01/28/19 01/28/19 01:00 01:26 02:00 02:11 Pulse 112 111 Resp 18 18 18 18 B/P (MAP) 145/88 (107) 155/79 (104) Pulse Ox 99 99 O2 Delivery Nasal Cannula Nasal Cannula O2 Flow Rate 2.0 2.0 01/28/19 01/28/19 01/28/19 01/28/19 03:01 04:00 04:00 04:56 Temp 98.7 98.7 Pulse 84 90 Resp 12 22 12 B/P (MAP) 130/66 (87) 162/86 (111) Pulse Ox 97 95 O2 Delivery Nasal Cannula Nasal Cannula Nasal Cannula O2 Flow Rate 2.0 2.0 2.0 01/28/19 01/28/19 01/28/19 05:00 05:39 06:00 Pulse 80 79 Resp 14 14 14 B/P (MAP) 130/75 (93) 130/75 (93) Pulse Ox 98 98 O2 Delivery Nasal Cannula Nasal Cannula O2 Flow Rate 2.0 2.0 Intake and Output 01/27/19 01/27/1901/28/19 14:59 22:59 06:59 Intake Total 300 ml 150 ml 1400 ml Output Total 260 ml 390 ml 580 ml Balance 40 ml -240 ml 820 ml DERECK CAREY MD Jan 28, 2019 09:10
--- NOTE | 2019-01-28 09:52 | RAD ---
PORTABLE CHEST 1V History: Respiratory failure COMPARISON: 01/27/2019. FINDINGS: Small caliber left chest tube is stable in position. No evidence of pneumothorax. Mild hazy infiltrate or edema in both lungs appears similar, although there is slightly improved aeration lung bases. No new consolidation is seen. No large effusion. IMPRESSION: Continued mild infiltrate and/or edema in both lungs, with slight improved aeration in lung bases. Electronically signed by: Asael Carrion MD (01/28/2019 9:49 AM) [facility]
[2019-01-28] MEDS: FAMOTIDINE 20 MG/2 ML VIAL IVP SCH ×2 (10:30→20:25)
[2019-01-28] MEDS: ASPIRIN ENTERIC COATED 325 MG TABLET.DR. PO SCH (10:37)
[2019-01-28] MEDS: CLOPIDOGREL BISULFATE 75 MG TABLET PO SCH (10:37)
[2019-01-28] MEDS: OXYBUTYNIN CHLORIDE 5 MG TABLET PO SCH ×3 (10:37→20:26)
[2019-01-28] MEDS: AMIODARONE HCL 200 MG TABLET. PO SCH (10:37)
[2019-01-28] MEDS: DOXYCYCLINE HYCLATE 100 MG in IV DEXTROSE 5% 100ML 100 ML IV SCH ×2 (10:38→20:25)
[2019-01-28] MEDS: LISINOPRIL 5 MG TABLET. PO SCH (10:38)
[2019-01-28] MEDS: METOPROLOL TART IMMED RELEASE 25 MG TABLET. PO SCH ×2 (10:38→20:26)
--- NOTE | 2019-01-28 14:13 | PDOC ---
PULMONARY PROGRESS NOTES Subjective DID WELL ON TRIAL EXTUBATED 01/27 NO AIR LEAK ON CHEST TUBE FOLLOW COMMANDS NOT MORE SOA Vitals Vital Signs Date Time Temp Pulse Resp B/P (MAP) Pulse Ox O2 Delivery O2 Flow Rate FiO2 01/28/19 12:00 Nasal Cannula 2.0 01/28/19 11:00 76 14 105/56 (72) 98 01/28/19 08:00 98.6 98.6 ROS: No Nausea, No Chest Pain, No Abdominal Pain, No Increase Cough General: Alert HEENT: Other (NO JVD) Lungs: Crackles Cardiovascular: S1, S2 Abdomen: Soft Neuro Exam: Alert Extremities: Other (EDEMA) Skin: Warm Labs Laboratory Tests Test 01/26/19 23:56 01/27/19 05:34 01/27/19 12:53 01/27/19 13:27 Glucose (Fingerstick) 124 mg/dL (70-99) O2 Saturation 99 % (92-99) 99 % (92-99) Arterial Blood pH 7.41 (7.35-7.45) 7.39 (7.35-7.45) Arterial Blood pCO2 at Patient Temp 35 mmHg (35-46) 32 mmHg (35-46) Arterial Blood pO2 at Patient Temp 165 mmHg (65-108) 168 mmHg (65-108) Arterial Blood HCO3 22 mmol/L (21-28) 19 mmol/L (21-28) Arterial Blood Base Excess -2 mmol/L (-3-3) -5 mmol/L (-3-3) FiO2 40 40% White Blood Count 11.1 x10^3/uL (4.0-11.0) Red Blood Count 4.03 x10^6/uL (4.30-5.70) Hemoglobin 12.7 g/dL (13.0-17.5) Hematocrit 37.8 % (39.0-53.0) Mean Corpuscular Volume 94 fL (79-100) Mean Corpuscular Hemoglobin 32 pg (25-35) Mean Corpuscular Hemoglobin Concent 34 g/dL (31-37) Red Cell Distribution Width 13.7 % (11.5-14.5) Platelet Count 123 x10^3/uL (140-400) Sodium Level 142 mmol/L (136-145) Potassium Level 3.6 mmol/L (3.5-5.1) Chloride Level 109 mmol/L (98-107) Carbon Dioxide Level 23 mmol/L (21-32) Anion Gap 10 (6-14) Blood Urea Nitrogen 20 mg/dL (8-26) Creatinine 0.9 mg/dL (0.7-1.3) Estimated GFR (Cockcroft-Gault) 85.0 BUN/Creatinine Ratio 22 (6-20) Glucose Level 112 mg/dL (70-99) Calcium Level 8.1 mg/dL (8.5-10.1) Magnesium Level 1.9 mg/dL (1.8-2.4) Total Bilirubin 0.8 mg/dL (0.2-1.0) Aspartate Amino Transf (AST/SGOT) 153 U/L (15-37) Alanine Aminotransferase (ALT/SGPT) 115 U/L (16-63) Alkaline Phosphatase 87 U/L (46-116) Total Protein 5.5 g/dL (6.4-8.2) Albumin 2.4 g/dL (3.4-5.0) Albumin/Globulin Ratio 0.8 (1.0-1.7) Test 01/28/19 04:30 White Blood Count 10.7 x10^3/uL (4.0-11.0) Red Blood Count 3.78 x10^6/uL (4.30-5.70) Hemoglobin 12.2 g/dL (13.0-17.5) Hematocrit 35.1 % (39.0-53.0) Mean Corpuscular Volume 93 fL (79-100) Mean Corpuscular Hemoglobin 32 pg (25-35) Mean Corpuscular Hemoglobin Concent 35 g/dL (31-37) Red Cell Distribution Width 13.7 % (11.5-14.5) Platelet Count 119 x10^3/uL (140-400) Neutrophils (%) (Auto) 83 % (31-73) Lymphocytes (%) (Auto) 9 % (24-48) Monocytes (%) (Auto) 8 % (0-9) Eosinophils (%) (Auto) 0 % (0-3) Basophils (%) (Auto) 0 % (0-3) Neutrophils # (Auto) 8.8 x10^3/uL (1.8-7.7) Lymphocytes # (Auto) 0.9 x10^3/uL (1.0-4.8) Monocytes # (Auto) 0.8 x10^3/uL (0.0-1.1) Eosinophils # (Auto) 0.0 x10^3/uL (0.0-0.7) Basophils # (Auto) 0.0 x10^3/uL (0.0-0.2) Sodium Level 143 mmol/L (136-145) Potassium Level 3.6 mmol/L (3.5-5.1) Chloride Level 110 mmol/L (98-107) Carbon Dioxide Level 22 mmol/L (21-32) Anion Gap 11 (6-14) Blood Urea Nitrogen 18 mg/dL (8-26) Creatinine 0.8 mg/dL (0.7-1.3) Estimated GFR (Cockcroft-Gault) 97.3 Glucose Level 90 mg/dL (70-99) Calcium Level 8.1 mg/dL (8.5-10.1) Laboratory Tests Test 01/28/19 04:30 White Blood Count 10.7 x10^3/uL (4.0-11.0) Red Blood Count 3.78 x10^6/uL (4.30-5.70) Hemoglobin 12.2 g/dL (13.0-17.5) Hematocrit 35.1 % (39.0-53.0) Mean Corpuscular Volume 93 fL (79-100) Mean Corpuscular Hemoglobin 32 pg (25-35) Mean Corpuscular Hemoglobin Concent 35 g/dL (31-37) Red Cell Distribution Width 13.7 % (11.5-14.5) Platelet Count 119 x10^3/uL (140-400) Neutrophils (%) (Auto) 83 % (31-73) Lymphocytes (%) (Auto) 9 % (24-48) Monocytes (%) (Auto) 8 % (0-9) Eosinophils (%) (Auto) 0 % (0-3) Basophils (%) (Auto) 0 % (0-3) Neutrophils # (Auto) 8.8 x10^3/uL (1.8-7.7) Lymphocytes # (Auto) 0.9 x10^3/uL (1.0-4.8) Monocytes # (Auto) 0.8 x10^3/uL (0.0-1.1) Eosinophils # (Auto) 0.0 x10^3/uL (0.0-0.7) Basophils # (Auto) 0.0 x10^3/uL (0.0-0.2) Sodium Level 143 mmol/L (136-145) Potassium Level 3.6 mmol/L (3.5-5.1) Chloride Level 110 mmol/L (98-107) Carbon Dioxide Level 22 mmol/L (21-32) Anion Gap 11 (6-14) Blood Urea Nitrogen 18 mg/dL (8-26) Creatinine 0.8 mg/dL (0.7-1.3) Estimated GFR (Cockcroft-Gault) 97.3 Glucose Level 90 mg/dL (70-99) Calcium Level 8.1 mg/dL (8.5-10.1) Impression . 1. Acute respiratory failure secondary to [id number] cardiopulmonary arrest. 2. Obj-ud-lmoijohp cardiopulmonary arrest. 3. Ventricular fibrillation. 4. Coronary artery disease. 5. Ischemic cardiomyopathy with ejection fraction of 30-35%. 6. Status post stent placement to the left circumflex. 7. Aqgmr-li-ulqjaze diastolic heart failure. 8. Possible pneumonia/aspiration. 9. Left traumatic pneumothorax. 10. Elevated liver chemistries. 11. Acute renal failure. 12. Hypothyroidism. 13. Tobacco dependent. 14. Positive drug screen. 15/ POSSIBLE ANOXIC ENCEPHALOPATHY Plan . EXTUBATED 01/27 D/C WALL SUCTION CXR NO PTX NO AIRLEAK WITH CHEST TUBE D/W RN AND RT ANTIBX PER ID FOLLOW CARD INPUT CCT 30 MIN FORMULATING A PLAN, REVIEWING DATA. LABS, CXR JOE WHITE MD Jan 28, 2019 14:13
--- NOTE | 2019-01-28 15:12 | PDOC ---
PROGRESS NOTES Subjective Subjective Patient seen and examined Patient is extubated. Objective Objective Vital Signs Date Time Temp Pulse Resp B/P (MAP) Pulse Ox O2 Delivery O2 Flow Rate FiO2 01/28/19 12:00 Nasal Cannula 2.0 01/28/19 11:00 76 14 105/56 (72) 98 01/28/19 08:00 98.6 98.6 Intake and Output 01/28/19 06:59 Intake Total 1850 ml Output Total 1230 ml Balance 620 ml Intake Oral 0 ml IV Total 1550 ml Tube Feeding 300 ml Output Urine Total 1230 ml Chest Tube Drainage Total 0 ml Physical Exam Abdomen: Normal bowel sounds Heart: Regular rate General: mild distress Lungs: Other (mildly decreased breath sounds) Assessment Assessment Problems Medical Problems: (1) Cardiorespiratory arrest Status: Acute (2) Elevated liver function tests Status: Acute (3) Elevated troponin Status: Acute (4) Hyperglycemia Status: Acute (5) Hypokalemia Status: Acute (6) Metabolic acidosis Status: Acute (7) Renal insufficiency Status: Acute (8) Ribs, multiple fractures Status: Acute (9) Severe sepsis Status: Acute (10) STEMI (ST elevation myocardial infarction) Status: Acute (11) Traumatic pneumothorax Status: Acute 1. Vfib OOH arrest: culprit is occluded LCx S/P 3 stents. Continuing present treatment. Patient is off the ventilator. 2. CAD: new as above 3. ICM: EF 30-35% 4. Acute diastolic/systolic CHF 5. Acute respiratory failure with combination of CHF and pneumonia. Extubated. Followed by the pulmonary service. 6. Left apical pneumothorax/nondisplaced rib fractures 7. Sepsis: ID following 8 Hypothyroidism: Defer to PCP new. TSH 10. Will need replacement defer to PCP 9. Sinus bradycardia: no further VTs. No pauses, maintaining SR 10. Encephalopathy: improved Comment Review of Relevant I have reviewed the following items yadi (where applicable) has been applied. Labs Laboratory Tests Test 01/26/19 23:56 01/27/19 05:34 01/27/19 12:53 01/27/19 13:27 Glucose (Fingerstick) 124 mg/dL (70-99) O2 Saturation 99 % (92-99) 99 % (92-99) Arterial Blood pH 7.41 (7.35-7.45) 7.39 (7.35-7.45) Arterial Blood pCO2 at Patient Temp 35 mmHg (35-46) 32 mmHg (35-46) Arterial Blood pO2 at Patient Temp 165 mmHg (65-108) 168 mmHg (65-108) Arterial Blood HCO3 22 mmol/L (21-28) 19 mmol/L (21-28) Arterial Blood Base Excess -2 mmol/L (-3-3) -5 mmol/L (-3-3) FiO2 40 40% White Blood Count 11.1 x10^3/uL (4.0-11.0) Red Blood Count 4.03 x10^6/uL (4.30-5.70) Hemoglobin 12.7 g/dL (13.0-17.5) Hematocrit 37.8 % (39.0-53.0) Mean Corpuscular Volume 94 fL (79-100) Mean Corpuscular Hemoglobin 32 pg (25-35) Mean Corpuscular Hemoglobin Concent 34 g/dL (31-37) Red Cell Distribution Width 13.7 % (11.5-14.5) Platelet Count 123 x10^3/uL (140-400) Sodium Level 142 mmol/L (136-145) Potassium Level 3.6 mmol/L (3.5-5.1) Chloride Level 109 mmol/L (98-107) Carbon Dioxide Level 23 mmol/L (21-32) Anion Gap 10 (6-14) Blood Urea Nitrogen 20 mg/dL (8-26) Creatinine 0.9 mg/dL (0.7-1.3) Estimated GFR (Cockcroft-Gault) 85.0 BUN/Creatinine Ratio 22 (6-20) Glucose Level 112 mg/dL (70-99) Calcium Level 8.1 mg/dL (8.5-10.1) Magnesium Level 1.9 mg/dL (1.8-2.4) Total Bilirubin 0.8 mg/dL (0.2-1.0) Aspartate Amino Transf (AST/SGOT) 153 U/L (15-37) Alanine Aminotransferase (ALT/SGPT) 115 U/L (16-63) Alkaline Phosphatase 87 U/L (46-116) Total Protein 5.5 g/dL (6.4-8.2) Albumin 2.4 g/dL (3.4-5.0) Albumin/Globulin Ratio 0.8 (1.0-1.7) Test 01/28/19 04:30 White Blood Count 10.7 x10^3/uL (4.0-11.0) Red Blood Count 3.78 x10^6/uL (4.30-5.70) Hemoglobin 12.2 g/dL (13.0-17.5) Hematocrit 35.1 % (39.0-53.0) Mean Corpuscular Volume 93 fL (79-100) Mean Corpuscular Hemoglobin 32 pg (25-35) Mean Corpuscular Hemoglobin Concent 35 g/dL (31-37) Red Cell Distribution Width 13.7 % (11.5-14.5) Platelet Count 119 x10^3/uL (140-400) Neutrophils (%) (Auto) 83 % (31-73) Lymphocytes (%) (Auto) 9 % (24-48) Monocytes (%) (Auto) 8 % (0-9) Eosinophils (%) (Auto) 0 % (0-3) Basophils (%) (Auto) 0 % (0-3) Neutrophils # (Auto) 8.8 x10^3/uL (1.8-7.7) Lymphocytes # (Auto) 0.9 x10^3/uL (1.0-4.8) Monocytes # (Auto) 0.8 x10^3/uL (0.0-1.1) Eosinophils # (Auto) 0.0 x10^3/uL (0.0-0.7) Basophils # (Auto) 0.0 x10^3/uL (0.0-0.2) Sodium Level 143 mmol/L (136-145) Potassium Level 3.6 mmol/L (3.5-5.1) Chloride Level 110 mmol/L (98-107) Carbon Dioxide Level 22 mmol/L (21-32) Anion Gap 11 (6-14) Blood Urea Nitrogen 18 mg/dL (8-26) Creatinine 0.8 mg/dL (0.7-1.3) Estimated GFR (Cockcroft-Gault) 97.3 Glucose Level 90 mg/dL (70-99) Calcium Level 8.1 mg/dL (8.5-10.1) Laboratory Tests Test 01/28/19 04:30 White Blood Count 10.7 x10^3/uL (4.0-11.0) Red Blood Count 3.78 x10^6/uL (4.30-5.70) Hemoglobin 12.2 g/dL (13.0-17.5) Hematocrit 35.1 % (39.0-53.0) Mean Corpuscular Volume 93 fL (79-100) Mean Corpuscular Hemoglobin 32 pg (25-35) Mean Corpuscular Hemoglobin Concent 35 g/dL (31-37) Red Cell Distribution Width 13.7 % (11.5-14.5) Platelet Count 119 x10^3/uL (140-400) Neutrophils (%) (Auto) 83 % (31-73) Lymphocytes (%) (Auto) 9 % (24-48) Monocytes (%) (Auto) 8 % (0-9) Eosinophils (%) (Auto) 0 % (0-3) Basophils (%) (Auto) 0 % (0-3) Neutrophils # (Auto) 8.8 x10^3/uL (1.8-7.7) Lymphocytes # (Auto) 0.9 x10^3/uL (1.0-4.8) Monocytes # (Auto) 0.8 x10^3/uL (0.0-1.1) Eosinophils # (Auto) 0.0 x10^3/uL (0.0-0.7) Basophils # (Auto) 0.0 x10^3/uL (0.0-0.2) Sodium Level 143 mmol/L (136-145) Potassium Level 3.6 mmol/L (3.5-5.1) Chloride Level 110 mmol/L (98-107) Carbon Dioxide Level 22 mmol/L (21-32) Anion Gap 11 (6-14) Blood Urea Nitrogen 18 mg/dL (8-26) Creatinine 0.8 mg/dL (0.7-1.3) Estimated GFR (Cockcroft-Gault) 97.3 Glucose Level 90 mg/dL (70-99) Calcium Level 8.1 mg/dL (8.5-10.1) Microbiology 01/24/19 - Final, Resulted 01/24/19 - Final, Resulted 01/24/19 - Final, Resulted 01/24/19 - Final, Resulted 01/24/19 Gram Stain Evaluation - Final, Resulted 01/24/19 Sputum Culture, Resulted Pending 01/23/19 Blood Culture - Preliminary, Resulted NO GROWTH AFTER 4 DAYS Medications Current Medications Sodium Chloride 1,000 ml @ 1,000 mls/hr Q1H IV Last administered on 01/23/19at 17:23; Start 01/23/19 at 15:13; Stop 01/23/19 at 16:12; Status DC Sodium Bicarbonate (Sodium Bicarb Adult 8.4% Syr) 100 meq 1X ONCE IV Last administered on 01/23/19at 17:23; Start 01/23/19 at 15:30; Stop 01/23/19 at 15:5 9; Status DC Midazolam HCl (Versed) 5 mg STK-MED ONCE .ROUTE ; Start 01/23/19 at 15:25; Stop 01/23/19 at 15:25; Status DC Propofol 50 ml @ As Directed STK-MED ONCE IV ; Start 01/23/19 at 15:25; Stop 01/23/19 at 15:25; Status DC Calcium Gluconate (Calcium Gluconate) 1,000 mg 1X ONCE IVP Last administered on 01/23/19at 16:12; Start 01/23/19 at 16:00; Stop 01/23/19 at 16:01; Status DC Dextrose (Dextrose 50%-Water Syringe) 25 gm 1X ONCE IV ; Start 01/23/19 at 15:45; Stop 01/23/19 at 15:53; Status DC Insulin Human Regular (HumuLIN R VIAL) 10 unit 1X ONCE IV ; Start 01/23/19 at 15:45; Stop 01/23/19 at 15:53; Status DC Iohexol (Omnipaque 350 Mg/ml) 90 ml 1X ONCE IV Last administered on 01/23/19at 16:08; Start 01/23/19 at 15:45; Stop 01/23/19 at 16:00; Status DC Amiodarone HCl 900 mg/Dextrose 518 ml @ 0 mls/hr CONT PRN IV SEE I/O RECORD Last administered on 01/23/19at 17:06; Start 01/23/19 at 16:00; Stop 01/23/19 at 17:06; Status DC Piperacillin Sod/ Tazobactam Sod 3.375 gm/Sodium Chloride 50 ml @ 100 mls/hr 1X ONCE IV Last administered on 01/23/19at 22:19; Start 01/23/19 at 16:00; Stop 01/23/19 at 16:29; Status DC Vancomycin HCl 250 ml @ 250 mls/hr 1X ONCE IV ; Start 01/23/19 at 16:00; Stop 01/23/19 at 16:24; Status DC Fentanyl Citrate (Fentanyl 2ml Vial) 100 mcg 1X ONCE IV ; Start 01/23/19 at 16:15; Stop 01/23/19 at 16:24; Status DC Midazolam HCl (Versed) 2 mg 1X ONCE IV ; Start 01/23/19 at 16:15; Stop 01/23/19 at 16:24; Status DC Magnesium Sulfate/ Dextrose 100 ml @ 100 mls/hr 1X ONCE IV ; Start 01/23/19 at 16:15; Stop 01/23/19 at 17:14; Status DC Buspirone HCl (Buspar) 30 mg Q8H NG Last administered on 01/25/19at 08:47; Start 01/23/19 at 17:00; Stop 01/25/19 at 09:01; Status DC Acetaminophen (Tylenol) 650 mg Q4H NG Last administered on 01/25/19at 11:11; Start 01/23/19 at 16:15; Stop 01/26/19 at 01:00; Status DC Artificial Tears (Artificial Tears) 1 drop Q6HRS OU Last administered on 01/25/19at 23:53; Start 01/23/19 at 18:00; Stop 01/26/19 at 01:00; Status DC Artificial Tears (Artificial Tears) 1 drop PRN Q15MIN PRN OU DRY EYE; Start 01/23/19 at 16:15; Stop 01/26/19 at 01:00; Status DC Heparin Sodium (Porcine) (Heparin Sodium) 5,000 unit BID SQ ; Start 01/23/19 at 21:00; Stop 01/23/19 at 16:53; Status DC Pantoprazole Sodium (PROTONIX VIAL for IV PUSH) 40 mg DAILY IVP ; Start 01/24/19 at 09:00; Stop 01/23/19 at 20:27; Status DC Fentanyl Citrate 30 ml @ 0 mls/hr CONT PRN IV PER PROTOCOL.; Start 01/23/19 at 16:15; Stop 01/23/19 at 18:01; Status DC Propofol 100 ml @ 0 mls/hr CONT PRN IV PER PROTOCOL.; Start 01/23/19 at 16:15; Stop 01/23/19 at 20:27; Status DC Midazolam HCl 100 ml @ 0 mls/hr CONT PRN IV PER PROTOCOL. Last administered on 01/23/19at 16:50; Start 01/23/19 at 16:15; Stop 01/23/19 at 20:26; Status DC Vecuronium [place] (Norcuron Bolus) 7 mg PRN Q1HR PRN IV SHIVERING; Start 01/23/19 at 16:15; Stop 01/23/19 at 20:28; Status DC Pantoprazole Sodium (PROTONIX VIAL for IV PUSH) 40 mg DAILYAC IVP ; Start 01/24/19 at 07:30; Stop 01/23/19 at 16:25; Status DC Pantoprazole Sodium (PROTONIX VIAL for IV PUSH) 40 mg 1X ONCE IVP Last administered on 01/23/19at 23:43; Start 01/23/19 at 17:00; Stop 01/23/19 at 17:01 ; Status DC Enoxaparin Sodium (Lovenox 40mg Syringe) 40 mg Q24H SQ ; Start 01/23/19 at 21:00; Stop 01/23/19 at 23:59; Status DC Sodium Chloride 1,000 ml @ 150 mls/hr Q6H40M IV Last administered on 01/24/19at 04:43; Start 01/23/19 at 16:11; Stop 01/24/19 at 11:40; Status DC Potassium Chloride/Water 100 ml @ 100 mls/hr Q1H IV Last administered on 01/23/19at 19:06; Start 01/23/19 at 17:00; Stop 01/23/19 at 20:59; Status DC Potassium Chloride/Water 100 ml @ 100 mls/hr Q1H IV ; Start 01/23/19 at 22:00; Stop 01/23/19 at 23:59; Status DC Vancomycin HCl 1.75 gm/Sodium Chloride 500 ml @ 250 mls/hr 1X ONCE IV Last administered on 01/23/19at 23:42; Start 01/23/19 at 18:00; Stop 01/23/19 at 19:59; Status DC Aspirin (Aspirin Rectal Supp) 300 mg 1X ONCE MO Last administered on 01/23/19at 20:27; Start 01/23/19 at 17:00; Stop 01/23/19 at 17:01; Status DC Lidocaine HCl (Lidocaine 1% 20ml Vial) 20 ml STK-MED ONCE .ROUTE ; Start 01/23/19 at 16:37; Stop 01/23/19 at 16:37; Status DC Heparin Sodium/ Sodium Chloride 1,000 ml @ As Directed STK-MED ONCE .ROUTE ; Start 01/23/19 at 16:37; Stop 01/23/19 at 16:38; Status DC Heparin Sodium/ Dextrose 500 ml @ 0 mls/hr CONT PRN IV SEE I/O RECORD; Start 01/23/19 at 17:00; Stop 01/23/19 at 23:27; Status DC Midazolam HCl (Versed) 5 mg STK-MED ONCE .ROUTE ; Start 01/23/19 at 17:00; Stop 01/23/19 at 17:00; Status DC Sodium Chloride 1,000 ml @ 1,000 mls/hr 1X ONCE IV Last administered on 01/23/19at 18:58; Start 01/23/19 at 17:30; Stop 01/23/19 at 18:29; Status DC Propofol 50 ml @ 2.1 mls/hr 1X STAT IV Last administered on 01/23/19at 18:51; Start 01/23/19 at 17:17; Stop 01/23/19 at 20:27; Status DC Midazolam HCl (Versed) 5 mg 1X ONCE IV Last administered on 01/23/19at 18:18; Start 01/23/19 at 17:30; Stop 01/23/19 at 17:31; Status DC Fentanyl Citrate 30 ml @ 0 mls/hr CONT PRN PRN IV PER PROTOCOL; Start 01/23/19 at 17:45; Status Cancel Naloxone HCl (Narcan) 0.4 mg PRN Q2MIN PRN IV SEE INSTRUCTIONS; Start 01/23/19 at 17:45 Sodium Chloride 1,000 ml @ 25 mls/hr Q24H IV Last administered on 01/26/19at 15:11; Start 01/23/19 at 17:33 Midazolam HCl (Versed) 5 mg 1X ONCE IV Last administered on 01/23/19at 19:02; Start 01/23/19 at 18:15; Stop 01/23/19 at 18:16; Status DC Amiodarone HCl (Cordarone) 150 mg STK-MED ONCE .ROUTE ; Start 01/23/19 at 18:11; Stop 01/23/19 at 18:12; Status DC Iodixanol (Visipaque 320) 100 ml STK-MED ONCE .ROUTE ; Start 01/23/19 at 18:19; Stop 01/23/19 at 18:19; Status DC Bivalirudin (Angiomax) 250 mg STK-MED ONCE IV ; Start 01/23/19 at 18:20; Stop 01/23/19 at 18:20; Status DC Nitroglycerin (Nitroglycerin) 200 mcg 1X ONCE IART Last administered on 01/23/19 19:10; Start 01/23/19 at 18:45; Stop 01/23/19 at 18:56; Status DC Heparin Sodium/ Sodium Chloride (HEPARIN for ARTERIAL LINE FLUSH) 1,000 unit 1X ONCE IART Last administered on 01/23/19at 19:10; Start 01/23/19 at 18:45; Stop 01/23/19 at 18:56; Status DC Heparin Sodium/ Sodium Chloride (HEPARIN for ARTERIAL LINE FLUSH) 1,000 unit 1X ONCE IART Last administered on 01/23/19at 19:10; Start 01/23/19 at 18:45; Stop 01/23/19 at 18:56; Status DC Iodixanol (Visipaque 320) 100 ml 1X ONCE IART Last administered on 01/23/19at 19:10; Start 01/23/19 at 18:45; Stop 01/23/19 at 18:56; Status DC Bivalirudin (Angiomax) 250 mg 1X ONCE IV Last administered on 01/23/19at 19:10; Start 01/23/19 at 18:45; Stop 01/23/19 at 18:56; Status DC Lidocaine HCl (Lidocaine 1% 20ml Vial) 10 ml 1X ONCE INJ Last administered on 01/23/19at 19:10; Start 01/23/19 at 18:45; Stop 01/23/19 at 18:56; Status DC Amiodarone HCl 150 mg/Dextrose 103 ml @ 0 mls/hr 1X ONCE IV Last administered on 01/23/19at 19:10; Start 01/23/19 at 19:00; Stop 01/23/19 at 19:01; Status DC Info (CONTRAST GIVEN -- Rx MONITORING) 1 each PRN DAILY PRN MC SEE COMMENTS; Start 01/23/19 at 19:00; Stop 01/25/19 at 18:59; Status DC Heparin Sodium/ Sodium Chloride 500 ml @ As Directed STK-MED ONCE .ROUTE ; Start 01/23/19 at 19:02; Stop 01/23/19 at 19:03; Status DC Sodium Chloride (Normal Saline Flush) 3 ml QSHIFT PRN IV AFTER MEDS AND BLOOD DRAWS; Start 01/23/19 at 19:30 Sodium Chloride 1,000 ml @ 75 mls/hr [id number] IV Last administered on 01/23/19at 20:27; Start 01/23/19 at 19:17; Stop 01/24/19 at 03:16; Status DC Aspirin (Ecotrin) 325 mg DAILYWBKFT PO Last administered on 01/28/19at 10:44; Start 01/24/19 at 08:00 Clopidogrel Bisulfate (Plavix) 75 mg DAILYWBKFT PO Last administered on 01/28/19at 10:44; Start 01/24/19 at 08:00 Acetaminophen (Tylenol) 650 mg PRN Q6HRS PRN PO MILD PAIN / TEMP Last administered on 01/27/19at 11:01; Start 01/23/19 at 19:30 Fentanyl Citrate (Fentanyl 2ml Vial) 50 mcg PRN Q1HR PRN IV MODERATE OR SEVERE PAIN; Start 01/23/19 at 19:30; Stop 01/26/19 at 00:59; Status DC Nitroglycerin (Nitrostat) 0.4 mg PRN Q5MIN PRN SL CHEST PAIN; Start 01/23/19 at 19:30 Amiodarone HCl 150 mg/Dextrose 103 ml @ 600 mls/hr 1X PRN PRN IV FOR VENTRICULAR TACHYCARDIA; Start 01/23/19 at 19:30 Lidocaine HCl (Lidocaine HCl 2% Abboject) 100 mg 1X PRN PRN IV FOR VENTRICULAR TACHYCARDIA; Start 01/23/19 at 19:30 Atropine Sulfate (ATROPINE 0.5mg SYRINGE) 0.5 mg PRN 1X PRN IV BRADYCARDIA; Start 01/23/19 at 19:30 Fentanyl Citrate (Fentanyl 2ml Vial) 100 mcg 1X ONCE IV Last administered on 01/23/19at 20:27; Start 01/23/19 at 19:45; Stop 01/23/19 at 20:25; Status DC Midazolam HCl (Versed) 2 mg 1X ONCE IV ; Start 01/23/19 at 19:45; Stop 01/23/19 at 20:25; Status DC Magnesium Sulfate/ Dextrose 100 ml @ 100 mls/hr 1X ONCE IV Last administered on 01/23/19at 20:46; Start 01/23/19 at 19:45; Stop 01/23/19 at 20:44; Status DC Heparin Sodium (Porcine) (Heparin Sodium) 5,000 unit BID SQ Last administered on 01/28/19at 10:44; Start 01/23/19 at 21:00 Pantoprazole Sodium (PROTONIX VIAL for IV PUSH) 40 mg DAILY IVP Last administered on 01/27/19at 08:06; Start 01/24/19 at 09:00; Stop 01/28/19 at 10:09; Status DC Fentanyl Citrate 30 ml @ 0 mls/hr CONT PRN IV PER PROTOCOL. Last administered on 01/25/19at 16:54; Start 01/23/19 at 19:45; Stop 01/26/19 at 01:00; Status DC Propofol 100 ml @ 0 mls/hr CONT PRN IV PER PROTOCOL.; Start 01/23/19 at 19:45; Stop 01/26/19 at 01:00; Status DC Midazolam HCl 100 ml @ 0 mls/hr CONT PRN IV PER PROTOCOL. Last administered on 01/25/19at 23:11; Start 01/23/19 at 19:45; Stop 01/26/19 at 01:00; Status DC Vecuronium [place] (Norcuron Bolus) 7 mg PRN Q1HR PRN IV SHIVERING Last administered on 01/24/19at 21:19; Start 01/23/19 at 19:45; Stop 01/28/19 at 09:12; Status DC Norepinephrine Bitartrate 250 ml @ 13.608 mls/ hr CONT PRN IV SEE I/O RECORD; Start 01/23/19 at 20:45; Stop 01/28/19 at 09:12; Status DC Sodium Chloride 500 ml @ 500 mls/hr 1X ONCE IV Last administered on 01/23/19at 20:57; Start 01/23/19 at 20:45; Stop 01/23/19 at 21:44; Status DC Daptomycin 440 mg/ Sodium Chloride 50 ml @ 100 mls/hr Q24H IV Last administered on 01/25/19at 23:11; Start 01/23/19 at 23:00; Stop 01/26/19 at 07:52; Status DC Linezolid/Dextrose 300 ml @ 300 mls/hr Q12HR IV Last administered on 01/25/19at 21:03; Start 01/24/19 at 09:00; Stop 01/26/19 at 07:52; Status DC Doxycycline Hyclate 100 mg/ Dextrose 100 ml @ 50 mls/hr Q12HR IV Last administered on 01/28/19at 10:44; Start 01/24/19 at 09:00 Doxycycline Hyclate 100 mg/ Dextrose 100 ml @ 50 mls/hr 1X ONCE IV Last administered on 01/23/19at 23:42; Start 01/23/19 at 23:30; Stop 01/24/19 at 01:29; Status DC Linezolid/Dextrose 300 ml @ 300 mls/hr ONCE ONCE IV Last administered on 01/23/19at 23:42; Start 01/23/19 at 23:00; Stop 01/23/19 at 23:59; Status DC Insulin Human Regular 150 unit/ Sodium Chloride 151.5 ml @ 0 mls/hr CONT PRN IV SEE I/O RECORD; Start 01/23/19 at 23:15; Stop 01/26/19 at 08:41; Status DC Magnesium Sulfate 50 ml @ 25 mls/hr 1X ONCE IV Last administered on 01/24/19at 08:29; Start 01/24/19 at 06:45; Stop 01/24/19 at 08:44; Status DC Piperacillin Sod/ Tazobactam Sod 3.375 gm/Sodium Chloride 50 ml @ 100 mls/hr Q6HRS IV Last administered on 01/28/19at 12:57; Start 01/24/19 at 08:00 Atorvastatin Calcium (Lipitor) 20 mg QHS PO Last administered on 01/26/19at 21:10; Start 01/24/19 at 21:00 Sodium Chloride 1,000 ml @ 100 mls/hr Q10H IV Last administered on 01/28/19at 05:56; Start 01/24/19 at 11:45 Amiodarone HCl 900 mg/Dextrose 518 ml @ 17 mls/hr 30H29M IV ; Start 01/24/19 at 15:00; Status Cancel Magnesium Sulfate/ Dextrose 100 ml @ 100 mls/hr 1X ONCE IV Last administered on 01/24/19at 13:52; Start 01/24/19 at 13:30; Stop 01/24/19 at 14:29; Status DC Lidocaine/Sodium Bicarbonate (Buffered Lidocaine 1%) 3 ml STK-MED ONCE .ROUTE ; Start 01/24/19 at 15:03; Stop 01/24/19 at 15:04; Status DC Amiodarone HCl 900 mg/Dextrose 518 ml @ 33 mls/hr CONT PRN IV SEE I/O RECORD Last administered on 01/24/19at 16:09; Start 01/24/19 at 16:30; Stop 01/24/19 at 16:30; Status DC Potassium Chloride/Water 100 ml @ 100 mls/hr Q1H IV ; Start 01/25/19 at 09:00; Stop 01/25/19 at 10:06; Status DC Amiodarone HCl 450 mg/Dextrose 259 ml @ 17.267 mls/ hr CONT PRN IV SEE I/O RECORD Last administered on 01/26/19at 04:56; Start 01/25/19 at 13:15; Stop 01/26/19 at 13:47; Status DC Fentanyl Citrate 30 ml @ 0 mls/hr CONT PRN IV SEE PROTOCOL Last administered on 01/26/19at 18:46; Start 01/26/19 at 01:00; Stop 01/28/19 at 09:12; Status DC Propofol 100 ml @ 0 mls/hr CONT PRN IV SEE PROTOCOL; Start 01/26/19 at 01:00; Stop 01/28/19 at 09:12; Status DC Midazolam HCl 100 ml @ 0 mls/hr CONT PRN IV SEE PROTOCOL Last administered on 01/27/19at 02:20; Start 01/26/19 at 01:00; Stop 01/28/19 at 09:12; Status DC Lorazepam (Ativan Inj) 2 mg PRN Q4HRS PRN IV ANXIETY / AGITATION Last administered on 01/28/19at 03:56; Start 01/26/19 at 08:45; Stop 01/28/19 at 09:12; Status DC Morphine Sulfate (Morphine Sulfate) 2 mg PRN Q2HR PRN IV PAIN Last administered on 01/28/19at 04:56; Start 01/26/19 at 08:45; Stop 01/28/19 at 09:12; Status DC Lisinopril (Prinivil) 2.5 mg DAILY PO Last administered on 01/28/19at 10:44; Start 01/27/19 at 09:00 Metoprolol Tartrate (Lopressor) 12.5 mg BID PO Last administered on 01/28/19at 10:44; Start 01/26/19 at 21:00 Amiodarone HCl (Cordarone) 400 mg DAILY PO Last administered on 01/28/19at 10:44; Start 01/27/19 at 09:00 Amiodarone HCl (Cordarone) 400 mg 1X ONCE PO Last administered on 01/26/19at 14:34; Start 01/26/19 at 14:15; Stop 01/26/19 at 14:16; Status DC Epinephrine HCl (EPINEPHrine SYRINGE) 1 mg STK-MED ONCE .ROUTE ; Start 01/23/19 at 14:47; Stop 01/26/19 at 14:48; Status DC Sodium Bicarbonate (Sodium Bicarb Adult 8.4% Syr) 100 meq STK-MED ONCE .ROUTE ; Start 01/23/19 at 14:47; Stop 01/26/19 at 14:48; Status DC Lorazepam (Ativan Inj) 1 mg PRN Q4HRS PRN IV ANXIETY / AGITATION; Start 01/28/19 at 09:15 Morphine Sulfate (Morphine Sulfate) 1 mg PRN Q2HR PRN IV PAIN; Start 01/28/19 at 09:15 Oxybutynin Chloride (Ditropan) 5 mg [id number] PO Last administered on 01/28/19at 10:44; Start 01/28/19 at 10:00 Tamsulosin HCl (Flomax) 0.4 mg QHS PO ; Start 01/28/19 at 21:00 Famotidine (Pepcid Vial) 20 mg BID IVP Last administered on 01/28/19at 10:44; Start 01/28/19 at 10:30 Vitals/I & O Vital Sign - Last 24 Hours 01/27/19 01/27/19 01/27/19 01/27/19 16:00 16:00 17:00 18:00 Pulse 80 90 74 Resp 24 24 24 B/P (MAP) 140/74 (96) 145/74 (97) 103/68 (80) Pulse Ox 100 94 94 O2 Delivery Mechanical Ventilator Nasal Cannula Nasal Cannula Nasal Cannula O2 Flow Rate 15.0 2.0 2.0 2.0 01/27/19 01/27/19 01/27/19 01/27/19 19:00 19:21 19:51 20:00 Temp 98.9 98.9 Pulse 93 88 Resp 32 32 28 28 B/P (MAP) 157/88 (111) 170/98 (122) Pulse Ox 96 95 O2 Delivery Nasal Cannula Nasal Cannula O2 Flow Rate 2.0 2.0 01/27/19 01/27/19 01/27/19 01/27/19 20:00 21:00 21:29 22:00 Pulse 90 92 Resp 21 22 18 B/P (MAP) 135/74 (94) 137/78 (97) Pulse Ox 98 96 O2 Delivery Nasal Cannula Nasal Cannula Nasal Cannula O2 Flow Rate 2.0 2.0 2.0 01/27/19 01/27/19 01/28/19 01/28/19 22:20 23:00 00:00 00:00 Temp 98.8 98.8 Pulse 83 99 Resp 18 18 18 B/P (MAP) 140/77 (98) 135/75 (95) Pulse Ox 97 99 O2 Delivery Nasal Cannula Nasal Cannula Nasal Cannula O2 Flow Rate 2.0 2.0 2.0 01/28/19 01/28/19 01/28/19 01/28/19 01:00 01:26 02:00 02:11 Pulse 112 111 Resp 18 18 18 18 B/P (MAP) 145/88 (107) 155/79 (104) Pulse Ox 99 99 O2 Delivery Nasal Cannula Nasal Cannula O2 Flow Rate 2.0 2.0 01/28/19 01/28/19 01/28/19 01/28/19 03:01 04:00 04:00 04:56 Temp 98.7 98.7 Pulse 84 90 Resp 12 22 12 B/P (MAP) 130/66 (87) 162/86 (111) Pulse Ox 97 95 O2 Delivery Nasal Cannula Nasal Cannula Nasal Cannula O2 Flow Rate 2.0 2.0 2.0 01/28/19 01/28/19 01/28/19 01/28/19 05:00 05:39 06:00 07:00 Pulse 80 79 80 Resp 14 14 14 14 B/P (MAP) 130/75 (93) 130/75 (93) 142/72 (95) Pulse Ox 98 98 98 O2 Delivery Nasal Cannula Nasal Cannula Nasal Cannula O2 Flow Rate 2.0 2.0 2.0 01/28/19 01/28/19 01/28/19 01/28/19 08:00 08:00 09:00 10:00 Temp 98.6 98.6 Pulse 82 76 74 Resp 14 14 14 B/P (MAP) 119/60 (79) 126/65 (85) 98/50 (66) Pulse Ox 98 98 98 O2 Delivery Nasal Cannula Nasal Cannula Nasal Cannula Nasal Cannula O2 Flow Rate 2.0 2.0 2.0 2.0 01/28/19 01/28/19 01/28/19 01/28/19 10:44 10:44 10:44 11:00 Pulse 79 79 79 76 Resp 14 B/P (MAP) 130/75 130/75 130/75 105/56 (72) Pulse Ox 98 O2 Delivery Nasal Cannula O2 Flow Rate 2.0 01/28/19 12:00 O2 Delivery Nasal Cannula O2 Flow Rate 2.0 Intake and Output 01/27/19 01/27/19 01/28/19 14:59 22:59 06:59 Intake Total 300 ml 150 ml 1400 ml Output Total 260 ml 390 ml 580 ml Balance 40 ml -240 ml 820 ml ISAMAR CHEUNG MD Jan 28, 2019 15:12
--- NOTE | 2019-01-28 15:28 | PDOC ---
Infectious Disease Note Subjective Subjective extubated Says feeling alright Denies OLINDA/CP/F/C ROS ROS per HPI Vital Sign Vital Signs Vital Signs Date Time Temp Pulse Resp B/P (MAP) Pulse Ox O2 Delivery O2 Flow Rate FiO2 01/28/19 12:00 Nasal Cannula 2.0 01/28/19 11:00 76 14 105/56 (72) 98 01/28/19 08:00 98.6 98.6 Physical Exam PHYSICAL EXAM GENERAL: Propped up in bed, awake, smiling HEENT: Oral cavity pink, moist NECK: Supple. LUNGS: Decreased at bases. Left chest tube HEART: S1, S2. ABDOMEN: Minimally distended, nontender, soft + BS bowel sounds. He has a well-approximated incision in the left lower quadrant. GENITOURINARY: العلي EXTREMITIES: No clubbing or cyanosis. No gross edema. SKIN: Warm to touch without signs of rash. NEUROLOGICAL: Responding appropriately PIV Labs Lab Laboratory Tests Test 01/28/19 04:30 White Blood Count 10.7 x10^3/uL (4.0-11.0) Red Blood Count 3.78 x10^6/uL (4.30-5.70) Hemoglobin 12.2 g/dL (13.0-17.5) Hematocrit 35.1 % (39.0-53.0) Mean Corpuscular Volume 93 fL (79-100) Mean Corpuscular Hemoglobin 32 pg (25-35) Mean Corpuscular Hemoglobin Concent 35 g/dL (31-37) Red Cell Distribution Width 13.7 % (11.5-14.5) Platelet Count 119 x10^3/uL (140-400) Neutrophils (%) (Auto) 83 % (31-73) Lymphocytes (%) (Auto) 9 % (24-48) Monocytes (%) (Auto) 8 % (0-9) Eosinophils (%) (Auto) 0 % (0-3) Basophils (%) (Auto) 0 % (0-3) Neutrophils # (Auto) 8.8 x10^3/uL (1.8-7.7) Lymphocytes # (Auto) 0.9 x10^3/uL (1.0-4.8) Monocytes # (Auto) 0.8 x10^3/uL (0.0-1.1) Eosinophils # (Auto) 0.0 x10^3/uL (0.0-0.7) Basophils # (Auto) 0.0 x10^3/uL (0.0-0.2) Sodium Level 143 mmol/L (136-145) Potassium Level 3.6 mmol/L (3.5-5.1) Chloride Level 110 mmol/L (98-107) Carbon Dioxide Level 22 mmol/L (21-32) Anion Gap 11 (6-14) Blood Urea Nitrogen 18 mg/dL (8-26) Creatinine 0.8 mg/dL (0.7-1.3) Estimated GFR (Cockcroft-Gault) 97.3 Glucose Level 90 mg/dL (70-99) Calcium Level 8.1 mg/dL (8.5-10.1) IMPRESSION: Continued mild infiltrate and/or edema in both lungs, with slight improved aeration in lung bases. Micro Microbiology 01/23/19 Blood Culture - Preliminary, Resulted NO GROWTH AFTER 4 DAYS SPUTUM GRAM STAIN RESULT 1 Final Comment Moderate number of gram positive cocci. GRAM STAIN RESULT 2 Final Comment Few gram negative rods. Objective Assessment Sepsis - POA 01/23 -Blood cults neg so far. No pressors- procal 0.4 01/24 Pneumonia -LLL infiltrate and interstitial opacities -mycoplasma - neg. 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 reactive - better Diffuse small bowel thickening on CT Plan Plan of Care Cont Zosyn for potential aspiration/? abdominal and CAP. Cont Doxy for atypicals and given Afib avoid quinolones/macrolides Off dapto & Zyvox F/u legionella antigens and sputum cult F/u labs and cults Supportive care Critically ill Patient seen and examined. Chart reviewed in detail. Case discussed with MECHANICAL FIELD ENGINEER. Agree with above plan. MARILEE RENTERIA APRN Jan 28, 2019 15:28 DARREN HAN MD Jan 28, 2019 21:20
[2019-01-28] MEDS: ATORVASTATIN CALCIUM 20 MG TABLET PO SCH (20:26)
[2019-01-28] MEDS: TAMSULOSIN 0.4 MG CAP.ER.24H. PO SCH (20:26)
[2019-01-29] VITALS (7 sets, daily range): BP systolic 138–166; BP diastolic 81–102
[2019-01-29] MEDS: PIPERACILLIN/TAZOBACTAM 3.375 GM in IV NORMAL SALINE 50ML 50 ML IV SCH ×5 (00:10→21:14)
[2019-01-29] MEDS: MORPHINE SULFATE 2 MG/ML VIAL. IV PRN ×4 (00:21→23:54)
[2019-01-29] MEDS: IV NORMAL SALINE 1000ML BAG 1,000 ML IV SCH ×4 (02:19→21:14)
[2019-01-29 07:41] LABS: BASO % 0 % (0-3); EOS % 0 % (0-3); HEMATOCRIT 33.6 % (39.0-53.0); HEMOGLOBIN 11.6 g/dL (13.0-17.5); LYMPH # 0.8 x10^3/uL (1.0-4.8); LYMPH % 7 % (24-48); MEAN CORPUSCULAR HEMOGLOBIN 32 pg (25-35); MEAN CORPUSCULAR HGB CONC 34 g/dL (31-37); MEAN CORPUSCULAR VOLUME 94 fL (79-100); MONO # 1.2 x10^3/uL (0.0-1.1); MONO % 11 % (0-9); NEUT % 82 % (31-73); PLATELET COUNT 121 x10^3/uL (140-400); RED CELL DISTRIBUTION WIDTH 13.2 % (11.5-14.5); WHITE BLOOD COUNT 11.1 x10^3/uL (4.0-11.0)
[2019-01-29 07:56] LABS: ALBUMIN 2.5 g/dL (3.4-5.0); CREATININE 0.8 mg/dL (0.7-1.3); GFR 97.3; PHOSPHORUS 3.3 mg/dL (2.6-4.7); POTASSIUM 3.4 mmol/L (3.5-5.1)
[2019-01-29] MEDS: CLOPIDOGREL BISULFATE 75 MG TABLET PO SCH (08:00)
[2019-01-29] MEDS: ASPIRIN ENTERIC COATED 325 MG TABLET.DR. PO SCH (08:00)
--- NOTE | 2019-01-29 08:30 | PDOC ---
Infectious Disease Note Subjective Subjective Says feeling alright Denies OLINDA/CP/F/C ROS ROS NO N/V/D/SOB Vital Sign Vital Signs Vital Signs Date Time Temp Pulse Resp B/P (MAP) Pulse Ox O2 Delivery O2 Flow Rate FiO2 01/29/19 07:00 97.3 87 18 154/88 (110) 92 Nasal Cannula 2.0 97.3 Physical Exam PHYSICAL EXAM GENERAL: Propped up in bed, awake, smiling HEENT: Oral cavity pink, moist NECK: Supple. LUNGS: Decreased at bases. Left chest tube HEART: S1, S2. ABDOMEN: Minimally distended, nontender, soft + BS bowel sounds. He has a well-approximated incision in the left lower quadrant. GENITOURINARY: العلي EXTREMITIES: No clubbing or cyanosis. No gross edema. SKIN: Warm to touch without signs of rash. NEUROLOGICAL: Responding appropriately PIV Labs Lab Laboratory Tests Test 01/29/19 05:22 01/29/19 05:23 White Blood Count 11.1 x10^3/uL (4.0-11.0) Red Blood Count 3.60 x10^6/uL (4.30-5.70) Hemoglobin 11.6 g/dL (13.0-17.5) Hematocrit 33.6 % (39.0-53.0) Mean Corpuscular Volume 94 fL (79-100) Mean Corpuscular Hemoglobin 32 pg (25-35) Mean Corpuscular Hemoglobin Concent 34 g/dL (31-37) Red Cell Distribution Width 13.2 % (11.5-14.5) Platelet Count 121 x10^3/uL (140-400) Neutrophils (%) (Auto) 82 % (31-73) Lymphocytes (%) (Auto) 7 % (24-48) Monocytes (%) (Auto) 11 % (0-9) Eosinophils (%) (Auto) 0 % (0-3) Basophils (%) (Auto) 0 % (0-3) Neutrophils # (Auto) 9.0 x10^3/uL (1.8-7.7) Lymphocytes # (Auto) 0.8 x10^3/uL (1.0-4.8) Monocytes # (Auto) 1.2 x10^3/uL (0.0-1.1) Eosinophils # (Auto) 0.0 x10^3/uL (0.0-0.7) Basophils # (Auto) 0.0 x10^3/uL (0.0-0.2) Sodium Level 145 mmol/L (136-145) Potassium Level 3.4 mmol/L (3.5-5.1) Chloride Level 110 mmol/L (98-107) Carbon Dioxide Level 21 mmol/L (21-32) Anion Gap 14 (6-14) Blood Urea Nitrogen 17 mg/dL (8-26) Creatinine 0.8 mg/dL (0.7-1.3) Estimated GFR (Cockcroft-Gault) 97.3 Glucose Level 76 mg/dL (70-99) Calcium Level 8.0 mg/dL (8.5-10.1) Phosphorus Level 3.3 mg/dL (2.6-4.7) Albumin 2.5 g/dL (3.4-5.0) Micro Microbiology 01/24/19 - Final, Resulted 01/24/19 - Final, Resulted 01/24/19 - Final, Resulted 01/24/19 - Final, Resulted 01/24/19 Gram Stain Evaluation - Final, Resulted 01/24/19 Sputum Culture, Resulted Pending 01/23/19 Blood Culture - Final, Complete NO GROWTH AFTER 5 DAYS Objective Assessment Sepsis - POA 01/23 -Blood cults neg so far. No pressors- procal 0.4 01/24 Pneumonia -LLL infiltrate and interstitial opacities -mycoplasma - neg. 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 reactive - better Diffuse small bowel thickening on CT Plan Plan of Care Cont Zosyn for potential aspiration/? abdominal and CAP. Cont Doxy for atypicals and given Afib avoid quinolones/macrolides Off dapto & Zyvox F/u legionella antigens and sputum cult F/u labs and cults Supportive care Critically ill MARY JANE DOBBINS MD Jan 29, 2019 08:29
[2019-01-29] MEDS: AMIODARONE HCL 200 MG TABLET. PO SCH (09:00)
[2019-01-29] MEDS: LISINOPRIL 5 MG TABLET. PO SCH (09:00)
[2019-01-29] MEDS: OXYBUTYNIN CHLORIDE 5 MG TABLET PO SCH ×3 (09:00→21:00)
[2019-01-29] MEDS: METOPROLOL TART IMMED RELEASE 25 MG TABLET. PO SCH ×2 (09:00→21:00)
[2019-01-29] MEDS: FAMOTIDINE 20 MG/2 ML VIAL IVP SCH ×2 (09:02→21:12)
[2019-01-29] MEDS: DOXYCYCLINE HYCLATE 100 MG in IV DEXTROSE 5% 100ML 100 ML IV SCH ×2 (09:02→21:27)
[2019-01-29] MEDS: HEPARIN for SUB-Q USE 5,000 UNIT/ML VIAL. SQ SCH ×2 (09:11→21:24)
--- NOTE | 2019-01-29 10:23 | PDOC ---
PROGRESS NOTES Chief Complaint Chief Complaint CAD s/p stat PCI/LHC with stents to left circ (x 3 stents) EXTUBATED 01/27/19 s/p out of hospital cardiac arrest, V Fib with ROSC after 33 mins CPR and 5 defibrillations given Post intubation APICAL PTX s/p chest tube (01/24) Respi failure sec to above # 1 on IPPV Asthma SIRS sec to # 1, no infection REactive leukocytosis CRITCAL hypokalemia, 2,8 HYPERmagnesemia 2.7 MARIANNE post code MIld hypochloremia 101 History of Present Illness History of Present Illness extubated 01/27 after 5 days intubation for cardiac arrest s.p hypothermia prot ocol HE has a weak voice, smiles, follows simple instructions and recognizes - FAILED SWALLOW 9. VS good, not on any pressors LAbs good SOme prostate sxs? Was on unrecalled med in the past Anxious today planned for clamping left sided Chest tube today by pulmyla VERY Weak, worked with PT yesterday PLAN: CLOTHER IN eval again today PTOT SW - will need SNU FULL CODE chest tube to dc today likely Pls give the ativan ordered- dw RN cont flomax, oxybutynin Vitals Vitals Vital Signs Date Time Temp Pulse Resp B/P (MAP) Pulse Ox O2 Delivery O2 Flow Rate FiO2 01/29/19 07:00 97.3 87 18 154/88 (110) 92 Nasal Cannula 2.0 97.3 Physical Exam Physical Exam GENERAL: Propped up in bed, awake, smiling HEENT: Oral cavity pink, moist NECK: Supple. LUNGS: Decreased at bases. Left chest tube HEART: S1, S2. ABDOMEN: Minimally distended, nontender, soft + BS bowel sounds. He has a well-approximated incision in the left lower quadrant. GENITOURINARY: العلي EXTREMITIES: No clubbing or cyanosis. No gross edema. SKIN: Warm to touch without signs of rash. NEUROLOGICAL: Responding appropriately PIV General: mild distress Heart: Regular rate Lungs: Crackles Abdomen: Normal bowel sounds Extremities: No clubbing, No cyanosis, No edema, Normal pulses Skin: No breakdown, No significant lesion Labs LABS Laboratory Tests Test 01/29/19 05:22 01/29/19 05:23 White Blood Count 11.1 x10^3/uL (4.0-11.0) Red Blood Count 3.60 x10^6/uL (4.30-5.70) Hemoglobin 11.6 g/dL (13.0-17.5) Hematocrit 33.6 % (39.0-53.0) Mean Corpuscular Volume 94 fL (79-100) Mean Corpuscular Hemoglobin 32 pg (25-35) Mean Corpuscular Hemoglobin Concent 34 g/dL (31-37) Red Cell Distribution Width 13.2 % (11.5-14.5) Platelet Count 121 x10^3/uL (140-400) Neutrophils (%) (Auto) 82 % (31-73) Lymphocytes (%) (Auto) 7 % (24-48) Monocytes (%) (Auto) 11 % (0-9) Eosinophils (%) (Auto) 0 % (0-3) Basophils (%) (Auto) 0 % (0-3) Neutrophils # (Auto) 9.0 x10^3/uL (1.8-7.7) Lymphocytes # (Auto) 0.8 x10^3/uL (1.0-4.8) Monocytes # (Auto) 1.2 x10^3/uL (0.0-1.1) Eosinophils # (Auto) 0.0 x10^3/uL (0.0-0.7) Basophils # (Auto) 0.0 x10^3/uL (0.0-0.2) Sodium Level 145 mmol/L (136-145) Potassium Level 3.4 mmol/L (3.5-5.1) Chloride Level 110 mmol/L (98-107) Carbon Dioxide Level 21 mmol/L (21-32) Anion Gap 14 (6-14) Blood Urea Nitrogen 17 mg/dL (8-26) Creatinine 0.8 mg/dL (0.7-1.3) Estimated GFR (Cockcroft-Gault) 97.3 Glucose Level 76 mg/dL (70-99) Calcium Level 8.0 mg/dL (8.5-10.1) Phosphorus Level 3.3 mg/dL (2.6-4.7) Albumin 2.5 g/dL (3.4-5.0) Review of Systems Review of Systems anxious, no cp, no soa, weak,, no fevers,th rest fo 14 pt kind of limited, anxi ous today Assessment and Plan Assessmemt and Plan Problems Medical Problems: (1) Cardiorespiratory arrest Status: Acute (2) Elevated liver function tests Status: Acute (3) Elevated troponin Status: Acute (4) Hyperglycemia Status: Acute (5) Hypokalemia Status: Acute (6) Metabolic acidosis Status: Acute (7) Renal insufficiency Status: Acute (8) Ribs, multiple fractures Status: Acute (9) Severe sepsis Status: Acute (10) STEMI (ST elevation myocardial infarction) Status: Acute (11) Traumatic pneumothorax Status: Acute Comment Review of Relevant I have reviewed the following items yadi (where applicable) has been applied. Labs Laboratory Tests Test 01/27/19 12:53 01/27/19 13:27 01/28/19 04:30 01/29/19 05:22 O2 Saturation 99 % (92-99) Arterial Blood pH 7.39 (7.35-7.45) Arterial Blood pCO2 at Patient Temp 32 mmHg (35-46) Arterial Blood pO2 at Patient Temp 168 mmHg (65-108) Arterial Blood HCO3 19 mmol/L (21-28) Arterial Blood Base Excess -5 mmol/L (-3-3) FiO2 40% White Blood Count 11.1 x10^3/uL (4.0-11.0) 10.7 x10^3/uL (4.0-11.0) 11.1 x10^3/uL (4.0-11.0) Red Blood Count 4.03 x10^6/uL (4.30-5.70) 3.78 x10^6/uL (4.30-5.70) 3.60 x10^6/uL (4.30-5.70) Hemoglobin 12.7 g/dL (13.0-17.5) 12.2 g/dL (13.0-17.5) 11.6 g/dL (13.0-17.5) Hematocrit 37.8 % (39.0-53.0) 35.1 % (39.0-53.0) 33.6 % (39.0-53.0) Mean Corpuscular Volume 94 fL (79-100) 93 fL (79-100) 94 fL (79-100) Mean Corpuscular Hemoglobin 32 pg (25-35) 32 pg (25-35) 32 pg (25-35) Mean Corpuscular Hemoglobin Concent 34 g/dL (31-37) 35 g/dL (31-37) 34 g/dL (31-37) Red Cell Distribution Width 13.7 % (11.5-14.5) 13.7 % (11.5-14.5) 13.2 % (11.5-14.5) Platelet Count 123 x10^3/uL (140-400) 119 x10^3/uL (140-400) 121 x10^3/uL (140-400) Sodium Level 142 mmol/L (136-145) 143 mmol/L (136-145) Potassium Level 3.6 mmol/L (3.5-5.1) 3.6 mmol/L (3.5-5.1) Chloride Level 109 mmol/L (98-107) 110 mmol/L (98-107) Carbon Dioxide Level 23 mmol/L (21-32) 22 mmol/L (21-32) Anion Gap 10 (6-14) 11 (6-14) Blood Urea Nitrogen 20 mg/dL (8-26) 18 mg/dL (8-26) Creatinine 0.9 mg/dL (0.7-1.3) 0.8 mg/dL (0.7-1.3) Estimated GFR (Cockcroft-Gault) 85.0 97.3 BUN/Creatinine Ratio 22 (6-20) Glucose Level 112 mg/dL (70-99) 90 mg/dL (70-99) Calcium Level 8.1 mg/dL (8.5-10.1) 8.1 mg/dL (8.5-10.1) Magnesium Level 1.9 mg/dL (1.8-2.4) Total Bilirubin 0.8 mg/dL (0.2-1.0) Aspartate Amino Transf (AST/SGOT) 153 U/L (15-37) Alanine Aminotransferase (ALT/SGPT) 115 U/L (16-63) Alkaline Phosphatase 87 U/L (46-116) Total Protein 5.5 g/dL (6.4-8.2) Albumin 2.4 g/dL (3.4-5.0) Albumin/Globulin Ratio 0.8 (1.0-1.7) Neutrophils (%) (Auto) 83 % (31-73) 82 % (31-73) Lymphocytes (%) (Auto) 9 % (24-48) 7 % (24-48) Monocytes (%) (Auto) 8 % (0-9) 11 % (0-9) Eosinophils (%) (Auto) 0 % (0-3) 0 % (0-3) Basophils (%) (Auto) 0 % (0-3) 0 % (0-3) Neutrophils # (Auto) 8.8 x10^3/uL (1.8-7.7) 9.0 x10^3/uL (1.8-7.7) Lymphocytes # (Auto) 0.9 x10^3/uL (1.0-4.8) 0.8 x10^3/uL (1.0-4.8) Monocytes # (Auto) 0.8 x10^3/uL (0.0-1.1) 1.2 x10^3/uL (0.0-1.1) Eosinophils # (Auto) 0.0 x10^3/uL (0.0-0.7) 0.0 x10^3/uL (0.0-0.7) Basophils # (Auto) 0.0 x10^3/uL (0.0-0.2) 0.0 x10^3/uL (0.0-0.2) Test 01/29/19 05:23 Sodium Level 145 mmol/L (136-145) Potassium Level 3.4 mmol/L (3.5-5.1) Chloride Level 110 mmol/L (98-107) Carbon Dioxide Level 21 mmol/L (21-32) Anion Gap 14 (6-14) Blood Urea Nitrogen 17 mg/dL (8-26) Creatinine 0.8 mg/dL (0.7-1.3) Estimated GFR (Cockcroft-Gault) 97.3 Glucose Level 76 mg/dL (70-99) Calcium Level 8.0 mg/dL (8.5-10.1) Phosphorus Level 3.3 mg/dL (2.6-4.7) Albumin 2.5 g/dL (3.4-5.0) Laboratory Tests Test 01/29/19 05:22 01/29/19 05:23 White Blood Count 11.1 x10^3/uL (4.0-11.0) Red Blood Count 3.60 x10^6/uL (4.30-5.70) Hemoglobin 11.6 g/dL (13.0-17.5) Hematocrit 33.6 % (39.0-53.0) Mean Corpuscular Volume 94 fL (79-100) Mean Corpuscular Hemoglobin 32 pg (25-35) Mean Corpuscular Hemoglobin Concent 34 g/dL (31-37) Red Cell Distribution Width 13.2 % (11.5-14.5) Platelet Count 121 x10^3/uL (140-400) Neutrophils (%) (Auto) 82 % (31-73) Lymphocytes (%) (Auto) 7 % (24-48) Monocytes (%) (Auto) 11 % (0-9) Eosinophils (%) (Auto) 0 % (0-3) Basophils (%) (Auto) 0 % (0-3) Neutrophils # (Auto) 9.0 x10^3/uL (1.8-7.7) Lymphocytes # (Auto) 0.8 x10^3/uL (1.0-4.8) Monocytes # (Auto) 1.2 x10^3/uL (0.0-1.1) Eosinophils # (Auto) 0.0 x10^3/uL (0.0-0.7) Basophils # (Auto) 0.0 x10^3/uL (0.0-0.2) Sodium Level 145 mmol/L (136-145) Potassium Level 3.4 mmol/L (3.5-5.1) Chloride Level 110 mmol/L (98-107) Carbon Dioxide Level 21 mmol/L (21-32) Anion Gap 14 (6-14) Blood Urea Nitrogen 17 mg/dL (8-26) Creatinine 0.8 mg/dL (0.7-1.3) Estimated GFR (Cockcroft-Gault) 97.3 Glucose Level 76 mg/dL (70-99) Calcium Level 8.0 mg/dL (8.5-10.1) Phosphorus Level 3.3 mg/dL (2.6-4.7) Albumin 2.5 g/dL (3.4-5.0) Microbiology 01/24/19 - Final, Resulted 01/24/19 - Final, Resulted 01/24/19 - Final, Resulted 01/24/19 - Final, Resulted 01/24/19 Gram Stain Evaluation - Final, Resulted 01/24/19 Sputum Culture, Resulted Pending 01/23/19 Blood Culture - Final, Complete NO GROWTH AFTER 5 DAYS Medications Current Medications Sodium Chloride 1,000 ml @ 1,000 mls/hr Q1H IV Last administered on 01/23/19at 17:23; Start 01/23/19 at 15:13; Stop 01/23/19 at 16:12; Status DC Sodium Bicarbonate (Sodium Bicarb Adult 8.4% Syr) 100 meq 1X ONCE IV Last administered on 01/23/19at 17:23; Start 01/23/19 at 15:30; Stop 01/23/19 at 15:59; Status DC Midazolam HCl (Versed) 5 mg STK-MED ONCE .ROUTE ; Start 01/23/19 at 15:25; Stop 01/23/19 at 15:25; Status DC Propofol 50 ml @ As Directed STK-MED ONCE IV ; Start 01/23/19 at 15:25; Stop 01/23/19 at 15:25; Status DC Calcium Gluconate (Calcium Gluconate) 1,000 mg 1X ONCE IVP Last administered on 01/23/19at 16:12; Start 01/23/19 at 16:00; Stop 01/23/19 at 16:01; Status DC Dextrose (Dextrose 50%-Water Syringe) 25 gm 1X ONCE IV ; Start 01/23/19 at 15:45; Stop 01/23/19 at 15:53; Status DC Insulin Human Regular (HumuLIN R VIAL) 10 unit 1X ONCE IV ; Start 01/23/19 at 15:45; Stop 01/23/19 at 15:53; Status DC Iohexol (Omnipaque 350 Mg/ml) 90 ml 1X ONCE IV Last administered on 01/23/19at 16:08; Start 01/23/19 at 15:45; Stop 01/23/19 at 16:00; Status DC Amiodarone HCl 900 mg/Dextrose 518 ml @ 0 mls/hr CONT PRN IV SEE I/O RECORD Last administered on 01/23/19at 17:06; Start 01/23/19 at 16:00; Stop 01/23/19 at 17:06; Status DC Piperacillin Sod/ Tazobactam Sod 3.375 gm/Sodium Chloride 50 ml @ 100 mls/hr 1X ONCE IV Last administered on 01/23/19at 22:19; Start 01/23/19 at 16:00; Stop 01/23/19 at 16:29; Status DC Vancomycin HCl 250 ml @ 250 mls/hr 1X ONCE IV ; Start 01/23/19 at 16:00; Stop 01/23/19 at 16:24; Status DC Fentanyl Citrate (Fentanyl 2ml Vial) 100 mcg 1X ONCE IV ; Start 01/23/19 at 16:15; Stop 01/23/19 at 16:24; Status DC Midazolam HCl (Versed) 2 mg 1X ONCE IV ; Start 01/23/19 at 16:15; Stop 01/23/19 at 16:24; Status DC Magnesium Sulfate/ Dextrose 100 ml @ 100 mls/hr 1X ONCE IV ; Start 01/23/19 at 16:15; Stop 01/23/19 at 17:14; Status DC Buspirone HCl (Buspar) 30 mg Q8H NG Last administered on 01/25/19at 08:47; Start 01/23/19 at 17:00; Stop 01/25/19 at 09:01; Status DC Acetaminophen (Tylenol) 650 mg Q4H NG Last administered on 01/25/19at 11:11; Start 01/23/19 at 16:15; Stop 01/26/19 at 01:00; Status DC Artificial Tears (Artificial Tears) 1 drop Q6HRS OU Last administered on 01/25/19at 23:53; Start 01/23/19 at 18:00; Stop 01/26/19 at 01:00; Status DC Artificial Tears (Artificial Tears) 1 drop PRN Q15MIN PRN OU DRY EYE; Start 01/23/19 at 16:15; Stop 01/26/19 at 01:00; Status DC Heparin Sodium (Porcine) (Heparin Sodium) 5,000 unit BID SQ ; Start 01/23/19 at 21:00; Stop 01/23/19 at 16:53; Status DC Pantoprazole Sodium (PROTONIX VIAL for IV PUSH) 40 mg DAILY IVP ; Start 01/24/19 at 09:00; Stop 01/23/19 at 20:27; Status DC Fentanyl Citrate 30 ml @ 0 mls/hr CONT PRN IV PER PROTOCOL.; Start 01/23/19 at 16:15; Stop 01/23/19 at 18:01; Status DC Propofol 100 ml @ 0 mls/hr CONT PRN IV PER PROTOCOL.; Start 01/23/19 at 16:15; Stop 01/23/19 at 20:27; Status DC Midazolam HCl 100 ml @ 0 mls/hr CONT PRN IV PER PROTOCOL. Last administered on 01/23/19at 16:50; Start 01/23/19 at 16:15; Stop 01/23/19 at 20:26; Status DC Vecuronium [place] (Norcuron Bolus) 7 mg PRN Q1HR PRN IV SHIVERING; Start 01/23/19 at 16:15; Stop 01/23/19 at 20:28; Status DC Pantoprazole Sodium (PROTONIX VIAL for IV PUSH) 40 mg DAILYAC IVP ; Start 01/24/19 at 07:30; Stop 01/23/19 at 16:25; Status DC Pantoprazole Sodium (PROTONIX VIAL for IV PUSH) 40 mg 1X ONCE IVP Last administered on 01/23/19at 23:43; Start 01/23/19 at 17:00; Stop 01/23/19 at 17:01; Status DC Enoxaparin Sodium (Lovenox 40mg Syringe) 40 mg Q24H SQ ; Start 01/23/19 at 21:00; Stop 01/23/19 at 23:59; Status DC Sodium Chloride 1,000 ml @ 150 mls/hr Q6H40M IV Last administered on 01/24/19at 04:43; Start 01/23/19 at 16:11; Stop 01/24/19 at 11:40; Status DC Potassium Chloride/Water 100 ml @ 100 mls/hr Q1H IV Last administered on 01/23/19at 19:06; Start 01/23/19 at 17:00; Stop 01/23/19 at 20:59; Status DC Potassium Chloride/Water 100 ml @ 100 mls/hr Q1H IV ; Start 01/23/19 at 22:00; Stop 01/23/19 at 23:59; Status DC Vancomycin HCl 1.75 gm/Sodium Chloride 500 ml @ 250 mls/hr 1X ONCE IV Last administered on 01/23/19at 23:42; Start 01/23/19 at 18:00; Stop 01/23/19 at 19:59; Status DC Aspirin (Aspirin Rectal Supp) 300 mg 1X ONCE OH Last administered on 01/23/19at 20:27; Start 01/23/19 at 17:00; Stop 01/23/19 at 17:01; Status DC Lidocaine HCl (Lidocaine 1% 20ml Vial) 20 ml STK-MED ONCE .ROUTE ; Start at 16:37; Stop 01/23/19 at 16:37; Status DC Heparin Sodium/ Sodium Chloride 1,000 ml @ As Directed STK-MED ONCE .ROUTE ; S tart 01/23/19 at 16:37; Stop 01/23/19 at 16:38; Status DC Heparin Sodium/ Dextrose 500 ml @ 0 mls/hr CONT PRN IV SEE I/O RECORD; Start 01/23/19 at 17:00; Stop 01/23/19 at 23:27; Status DC Midazolam HCl (Versed) 5 mg STK-MED ONCE .ROUTE ; Start 01/23/19 at 17:00; Stop 01/23/19 at 17:00; Status DC Sodium Chloride 1,000 ml @ 1,000 mls/hr 1X ONCE IV Last administered on 01/23/19at 18:58; Start 01/23/19 at 17:30; Stop 01/23/19 at 18:29; Status DC Propofol 50 ml @ 2.1 mls/hr 1X STAT IV Last administered on 01/23/19at 18:51; Start 01/23/19 at 17:17; Stop 01/23/19 at 20:27; Status DC Midazolam HCl (Versed) 5 mg 1X ONCE IV Last administered on 01/23/19at 18:18; Start 01/23/19 at 17:30; Stop 01/23/19 at 17:31; Status DC Fentanyl Citrate 30 ml @ 0 mls/hr CONT PRN PRN IV PER PROTOCOL; Start 01/23/19 at 17:45; Status Cancel Naloxone HCl (Narcan) 0.4 mg PRN Q2MIN PRN IV SEE INSTRUCTIONS; Start 01/23/19 at 17:45 Sodium Chloride 1,000 ml @ 25 mls/hr Q24H IV Last administered on 01/26/19at 15:11; Start 01/23/19 at 17:33 Midazolam HCl (Versed) 5 mg 1X ONCE IV Last administered on 01/23/19 19:02; Start 01/23/19 at 18:15; Stop 01/23/19 at 18:16; Status DC Amiodarone HCl (Cordarone) 150 mg STK-MED ONCE .ROUTE ; Start 01/23/19 at 18:11; Stop 01/23/19 at 18:12; Status DC Iodixanol (Visipaque 320) 100 ml STK-MED ONCE .ROUTE ; Start 01/23/19 at 18:19; Stop 01/23/19 at 18:19; Status DC Bivalirudin (Angiomax) 250 mg STK-MED ONCE IV ; Start 01/23/19 at 18:20; Stop 01/23/19 at 18:20; Status DC Nitroglycerin (Nitroglycerin) 200 mcg 1X ONCE IART Last administered on 01/23/19 19:10; Start 01/23/19 at 18:45; Stop 01/23/19 at 18:56; Status DC Heparin Sodium/ Sodium Chloride (HEPARIN for ARTERIAL LINE FLUSH) 1,000 unit 1X ONCE IART Last administered on 01/23/19at 19:10; Start 01/23/19 at 18:45; Stop 01/23/19 at 18:56; Status DC Heparin Sodium/ Sodium Chloride (HEPARIN for ARTERIAL LINE FLUSH) 1,000 unit 1X ONCE IART Last administered on 01/23/19 19:10; Start 01/23/19 at 18:45; Stop 01/23/19 at 18:56; Status DC Iodixanol (Visipaque 320) 100 ml 1X ONCE IART Last administered on 01/23/19 19:10; Start 01/23/19 at 18:45; Stop 01/23/19 at 18:56; Status DC Bivalirudin (Angiomax) 250 mg 1X ONCE IV Last administered on 01/23/19 19:10; Start 01/23/19 at 18:45; Stop 01/23/19 at 18:56; Status DC Lidocaine HCl (Lidocaine 1% 20ml Vial) 10 ml 1X ONCE INJ Last administered on 01/23/19 19:10; Start 01/23/19 at 18:45; Stop 01/23/19 at 18:56; Status DC Amiodarone HCl 150 mg/Dextrose 103 ml @ 0 mls/hr 1X ONCE IV Last administered on 01/23/19at 19:10; Start 01/23/19 at 19:00; Stop 01/23/19 at 19:01; Status DC Info (CONTRAST GIVEN -- Rx MONITORING) 1 each PRN DAILY PRN MC SEE COMMENTS; Start 01/23/19 at 19:00; Stop 01/25/19 at 18:59; Status DC Heparin Sodium/ Sodium Chloride 500 ml @ As Directed STK-MED ONCE .ROUTE ; Start 01/23/19 at 19:02; Stop 01/23/19 at 19:03; Status DC Sodium Chloride (Normal Saline Flush) 3 ml QSHIFT PRN IV AFTER MEDS AND BLOOD DRAWS; Start 01/23/19 at 19:30 Sodium Chloride 1,000 ml @ 75 mls/hr [id number] IV Last administered on 01/23/19at 20:27; Start 01/23/19 at 19:17; Stop 01/24/19 at 03:16; Status DC Aspirin (Ecotrin) 325 mg DAILYWBKFT PO Last administered on 01/28/19at 10:44; Start 01/24/19 at 08:00 Clopidogrel Bisulfate (Plavix) 75 mg DAILYWBKFT PO Last administered on 01/28/19at 10:44; Start 01/24/19 at 08:00 Acetaminophen (Tylenol) 650 mg PRN Q6HRS PRN PO MILD PAIN / TEMP Last administered on 01/27/19at 11:01; Start 01/23/19 at 19:30 Fentanyl Citrate (Fentanyl 2ml Vial) 50 mcg PRN Q1HR PRN IV MODERATE OR SEVERE PAIN; Start 01/23/19 at 19:30; Stop 01/26/19 at 00:59; Status DC Nitroglycerin (Nitrostat) 0.4 mg PRN Q5MIN PRN SL CHEST PAIN; Start 01/23/19 at 19:30 Amiodarone HCl 150 mg/Dextrose 103 ml @ 600 mls/hr 1X PRN PRN IV FOR VENTRICULAR TACHYCARDIA; Start 01/23/19 at 19:30 Lidocaine HCl (Lidocaine HCl 2% Abboject) 100 mg 1X PRN PRN IV FOR VENTRICULAR TACHYCARDIA; Start 01/23/19 at 19:30 Atropine Sulfate (ATROPINE 0.5mg SYRINGE) 0.5 mg PRN 1X PRN IV BRADYCARDIA; Start 01/23/19 at 19:30 Fentanyl Citrate (Fentanyl 2ml Vial) 100 mcg 1X ONCE IV Last administered on 01/23/19at 20:27; Start 01/23/19 at 19:45; Stop 01/23/19 at 20:25; Status DC Midazolam HCl (Versed) 2 mg 1X ONCE IV ; Start 01/23/19 at 19:45; Stop 01/23/19 at 20:25; Status DC Magnesium Sulfate/ Dextrose 100 ml @ 100 mls/hr 1X ONCE IV Last administered on 01/23/19at 20:46; Start 01/23/19 at 19:45; Stop 01/23/19 at 20:44; Status DC Heparin Sodium (Porcine) (Heparin Sodium) 5,000 unit BID SQ Last administered on 01/29/19at 09:12; Start 01/23/19 at 21:00 Pantoprazole Sodium (PROTONIX VIAL for IV PUSH) 40 mg DAILY IVP Last administered on 01/27/19 08:06; Start 01/24/19 at 09:00; Stop 01/28/19 at 10:09; Status DC Fentanyl Citrate 30 ml @ 0 mls/hr CONT PRN IV PER PROTOCOL. Last administered on 01/25/19at 16:54; Start 01/23/19 at 19:45; Stop 01/26/19 at 01:00; Status DC Propofol 100 ml @ 0 mls/hr CONT PRN IV PER PROTOCOL.; Start 01/23/19 at 19:45; Stop 01/26/19 at 01:00; Status DC Midazolam HCl 100 ml @ 0 mls/hr CONT PRN IV PER PROTOCOL. Last administered on 01/25/19at 23:11; Start 01/23/19 at 19:45; Stop 01/26/19 at 01:00; Status DC Vecuronium [place] (Norcuron Bolus) 7 mg PRN Q1HR PRN IV SHIVERING Last administered on 01/24/19at 21:19; Start 01/23/19 at 19:45; Stop 01/28/19 at 09:12; Status DC Norepinephrine Bitartrate 250 ml @ 13.608 mls/ hr CONT PRN IV SEE I/O RECORD; Start 01/23/19 at 20:45; Stop 01/28/19 at 09:12; Status DC Sodium Chloride 500 ml @ 500 mls/hr 1X ONCE IV Last administered on 01/23/19at 20:57; Start 01/23/19 at 20:45; Stop 01/23/19 at 21:44; Status DC Daptomycin 440 mg/ Sodium Chloride 50 ml @ 100 mls/hr Q24H IV Last administered on 01/25/19at 23:11; Start 01/23/19 at 23:00; Stop 01/26/19 at 07:52; Status DC Linezolid/Dextrose 300 ml @ 300 mls/hr Q12HR IV Last administered on 01/25/19at 21:03; Start 01/24/19 at 09:00; Stop 01/26/19 at 07:52; Status DC Doxycycline Hyclate 100 mg/ Dextrose 100 ml @ 50 mls/hr Q12HR IV Last administered on 01/29/19at 09:12; Start 01/24/19 at 09:00 Doxycycline Hyclate 100 mg/ Dextrose 100 ml @ 50 mls/hr 1X ONCE IV Last administered on 01/23/19at 23:42; Start 01/23/19 at 23:30; Stop 01/24/19 at 01:29; Status DC Linezolid/Dextrose 300 ml @ 300 mls/hr ONCE ONCE IV Last administered on 01/23/19at 23:42; Start 01/23/19 at 23:00; Stop 01/23/19 at 23:59; Status DC Insulin Human Regular 150 unit/ Sodium Chloride 151.5 ml @ 0 mls/hr CONT PRN IV SEE I/O RECORD; Start 01/23/19 at 23:15; Stop 01/26/19 at 08:41; Status DC Magnesium Sulfate 50 ml @ 25 mls/hr 1X ONCE IV Last administered on 01/24/19at 08:29; Start 01/24/19 at 06:45; Stop 01/24/19 at 08:44; Status DC Piperacillin Sod/ Tazobactam Sod 3.375 gm/Sodium Chloride 50 ml @ 100 mls/hr Q6HRS IV Last administered on 01/29/19at 05:17; Start 01/24/19 at 08:00 Atorvastatin Calcium (Lipitor) 20 mg QHS PO Last administered on 01/26/19at 21:10; Start 01/24/19 at 21:00 Sodium Chloride 1,000 ml @ 100 mls/hr Q10H IV Last administered on 01/28/19at 16:51; Start 01/24/19 at 11:45 Amiodarone HCl 900 mg/Dextrose 518 ml @ 17 mls/hr 30H29M IV ; Start 01/24/19 at 15:00; Status Cancel Magnesium Sulfate/ Dextrose 100 ml @ 100 mls/hr 1X ONCE IV Last administered on 01/24/19at 13:52; Start 01/24/19 at 13:30; Stop 01/24/19 at 14:29; Status DC Lidocaine/Sodium Bicarbonate (Buffered Lidocaine 1%) 3 ml STK-MED ONCE .ROUTE ; Start 01/24/19 at 15:03; Stop 01/24/19 at 15:04; Status DC Amiodarone HCl 900 mg/Dextrose 518 ml @ 33 mls/hr CONT PRN IV SEE I/O RECORD Last administered on 01/24/19at 16:09; Start 01/24/19 at 16:30; Stop 01/24/19 at 16:30; Status DC Potassium Chloride/Water 100 ml @ 100 mls/hr Q1H IV ; Start 01/25/19 at 09:00; Stop 01/25/19 at 10:06; Status DC Amiodarone HCl 450 mg/Dextrose 259 ml @ 17.267 mls/ hr CONT PRN IV SEE I/O RECORD Last administered on 01/26/19at 04:56; Start 01/25/19 at 13:15; Stop 01/26/19 at 13:47; Status DC Fentanyl Citrate 30 ml @ 0 mls/hr CONT PRN IV SEE PROTOCOL Last administered on 01/26/19at 18:46; Start 01/26/19 at 01:00; Stop 01/28/19 at 09:12; Status DC Propofol 100 ml @ 0 mls/hr CONT PRN IV SEE PROTOCOL; Start 01/26/19 at 01:00; Stop 01/28/19 at 09:12; Status DC Midazolam HCl 100 ml @ 0 mls/hr CONT PRN IV SEE PROTOCOL Last administered on 01/27/19at 02:20; Start 01/26/19 at 01:00; Stop 01/28/19 at 09:12; Status DC Lorazepam (Ativan Inj) 2 mg PRN Q4HRS PRN IV ANXIETY / AGITATION Last administered on 01/28/19 03:56; Start 01/26/19 at 08:45; Stop 01/28/19 at 09:12; Status DC Morphine Sulfate (Morphine Sulfate) 2 mg PRN Q2HR PRN IV PAIN Last administered on 01/28/19at 04:56; Start 01/26/19 at 08:45; Stop 01/28/19 at 09:12; Status DC Lisinopril (Prinivil) 2.5 mg DAILY PO Last administered on 01/28/19at 10:44; Start 01/27/19 at 09:00 Metoprolol Tartrate (Lopressor) 12.5 mg BID PO Last administered on 01/28/19 10:44; Start 01/26/19 at 21:00 Amiodarone HCl (Cordarone) 400 mg DAILY PO Last administered on 01/28/19at 10:44; Start 01/27/19 at 09:00 Amiodarone HCl (Cordarone) 400 mg 1X ONCE PO Last administered on 01/26/19at 14:34; Start 01/26/19 at 14:15; Stop 01/26/19 at 14:16; Status DC Epinephrine HCl (EPINEPHrine SYRINGE) 1 mg STK-MED ONCE .ROUTE ; Start 01/23/19 at 14:47; Stop 01/26/19 at 14:48; Status DC Sodium Bicarbonate (Sodium Bicarb Adult 8.4% Syr) 100 meq STK-MED ONCE .ROUTE ; Start 01/23/19 at 14:47; Stop 01/26/19 at 14:48; Status DC Lorazepam (Ativan Inj) 1 mg PRN Q4HRS PRN IV ANXIETY / AGITATION; Start 01/28/19 at 09:15 Morphine Sulfate (Morphine Sulfate) 1 mg PRN Q2HR PRN IV PAIN Last administered on 01/29/19 02:20; Start 01/28/19 at 09:15 Oxybutynin Chloride (Ditropan) 5 mg [id number] PO Last administered on 01/28/19at 10:44; Start 01/28/19 at 10:00 Tamsulosin HCl (Flomax) 0.4 mg QHS PO ; Start 01/28/19 at 21:00 Famotidine (Pepcid Vial) 20 mg BID IVP Last administered on 01/29/19at 09:12; Start 01/28/19 at 10:30 Vitals/I & O Vital Sign - Last 24 Hours 01/28/19 01/28/19 01/28/19 01/28/19 10:44 10:44 10:44 11:00 Pulse 79 79 79 76 Resp 14 B/P (MAP) 130/75 130/75 130/75 105/56 (72) Pulse Ox 98 O2 Delivery Nasal Cannula O2 Flow Rate 2.0 01/28/19 01/28/19 01/28/19 01/28/19 12:00 16:00 16:52 18:52 Temp 99.6 99.6 Pulse 88 79 Resp 14 20 B/P (MAP) 110/56 (74) 163/92 (115) Pulse Ox 98 93 O2 Delivery Nasal Cannula Nasal Cannula Nasal Cannula Nasal Cannula O2 Flow Rate 2.0 2.0 2.0 2.0 01/28/19 01/28/19 01/28/19 01/28/19 20:00 20:27 21:00 22:06 Pulse 79 Resp 18 18 B/P (MAP) 163/92 Pulse Ox 93 93 O2 Delivery Nasal Cannula Nasal Cannula Nasal Cannula O2 Flow Rate 2.0 2.0 2.0 01/28/19 01/29/19 01/29/19 01/29/19 22:50 00:21 00:52 02:20 Temp 98.1 98.1 Pulse 82 Resp 22 18 20 20 B/P (MAP) 138/79 (98) Pulse Ox 93 93 93 93 O2 Delivery Nasal Cannula Nasal Cannula Nasal Cannula Nasal Cannula O2 Flow Rate 2.0 2.0 2.0 2.0 01/29/19 01/29/19 01/29/19 02:30 02:53 07:00 Temp 98.2 97.3 98.2 97.3 Pulse 80 87 Resp 22 20 18 B/P (MAP) 156/86 (109) 154/88 (110) Pulse Ox 93 93 92 O2 Delivery Nasal Cannula Nasal Cannula Nasal Cannula O2 Flow Rate 2.0 2.0 2.0 Intake and Output 01/28/19 01/28/19 01/29/19 14:59 22:59 06:59 Intake Total 100 ml 50 ml 100 ml Output Total 725 ml 330 ml Balance -625 ml -280 ml 100 ml TERMULO,DERECK Y MD Jan 29, 2019 10:23
--- NOTE | 2019-01-29 11:06 | RAD ---
PORTABLE CHEST 1V History: Respiratory failure. Heart size is not enlarged. No evidence of pneumothorax, mild worsening of infiltrate in left lung base. Mild increase in small left pleural effusion. Stable to slightly worse small right pleural effusion. No evidence of new lobar consolidation. IMPRESSION: Worsening of left lung base infiltrate. Small pleural effusions, slightly greater. Electronically signed by: Asael Carrion MD (01/29/2019 11:02 AM) [facility] [place]
--- NOTE | 2019-01-29 11:34 | PDOC ---
PULMONARY PROGRESS NOTES Subjective NO NEW COMPLAINTS DID WELL ON TRIAL EXTUBATED 01/27 NO AIR LEAK ON CHEST TUBE FOLLOW COMMANDS NOT MORE SOA Vitals Vital Signs Date Time Temp Pulse Resp B/P (MAP) Pulse Ox O2 Delivery O2 Flow Rate FiO2 01/29/19 11:00 98.1 84 14 166/102 (123) 95 Nasal Cannula 2.0 98.1 ROS: No Nausea, No Chest Pain, No Abdominal Pain, No Increase Cough General: Alert HEENT: Other (NO JVD) Lungs: Crackles Cardiovascular: S1, S2 Abdomen: Soft Neuro Exam: Alert Extremities: Other (EDEMA) Skin: Warm Labs Laboratory Tests Test 01/27/19 12:53 01/27/19 13:27 01/28/19 04:30 01/29/19 05:22 O2 Saturation 99 % (92-99) Arterial Blood pH 7.39 (7.35-7.45) Arterial Blood pCO2 at Patient Temp 32 mmHg (35-46) Arterial Blood pO2 at Patient Temp 168 mmHg (65-108) Arterial Blood HCO3 19 mmol/L (21-28) Arterial Blood Base Excess -5 mmol/L (-3-3) FiO2 40% White Blood Count 11.1 x10^3/uL (4.0-11.0) 10.7 x10^3/uL (4.0-11.0) 11.1 x10^3/uL (4.0-11.0) Red Blood Count 4.03 x10^6/uL (4.30-5.70) 3.78 x10^6/uL (4.30-5.70) 3.60 x10^6/uL (4.30-5.70) Hemoglobin 12.7 g/dL (13.0-17.5) 12.2 g/dL (13.0-17.5) 11.6 g/dL (13.0-17.5) Hematocrit 37.8 % (39.0-53.0) 35.1 % (39.0-53.0) 33.6 % (39.0-53.0) Mean Corpuscular Volume 94 fL (79-100) 93 fL (79-100) 94 fL (79-100) Mean Corpuscular Hemoglobin 32 pg (25-35) 32 pg (25-35) 32 pg (25-35) Mean Corpuscular Hemoglobin Concent 34 g/dL (31-37) 35 g/dL (31-37) 34 g/dL (31-37) Red Cell Distribution Width 13.7 % (11.5-14.5) 13.7 % (11.5-14.5) 13.2 % (11.5-14.5) Platelet Count 123 x10^3/uL (140-400) 119 x10^3/uL (140-400) 121 x10^3/uL (140-400) Sodium Level 142 mmol/L (136-145) 143 mmol/L (136-145) Potassium Level 3.6 mmol/L (3.5-5.1) 3.6 mmol/L (3.5-5.1) Chloride Level 109 mmol/L (98-107) 110 mmol/L (98-107) Carbon Dioxide Level 23 mmol/L (21-32) 22 mmol/L (21-32) Anion Gap 10 (6-14) 11 (6-14) Blood Urea Nitrogen 20 mg/dL (8-26) 18 mg/dL (8-26) Creatinine 0.9 mg/dL (0.7-1.3) 0.8 mg/dL (0.7-1.3) Estimated GFR (Cockcroft-Gault) 85.0 97.3 BUN/Creatinine Ratio 22 (6-20) Glucose Level 112 mg/dL (70-99) 90 mg/dL (70-99) Calcium Level 8.1 mg/dL (8.5-10.1) 8.1 mg/dL (8.5-10.1) Magnesium Level 1.9 mg/dL (1.8-2.4) Total Bilirubin 0.8 mg/dL (0.2-1.0) Aspartate Amino Transf (AST/SGOT) 153 U/L (15-37) Alanine Aminotransferase (ALT/SGPT) 115 U/L (16-63) Alkaline Phosphatase 87 U/L (46-116) Total Protein 5.5 g/dL (6.4-8.2) Albumin 2.4 g/dL (3.4-5.0) Albumin/Globulin Ratio 0.8 (1.0-1.7) Neutrophils (%) (Auto) 83 % (31-73) 82 % (31-73) Lymphocytes (%) (Auto) 9 % (24-48) 7 % (24-48) Monocytes (%) (Auto) 8 % (0-9) 11 % (0-9) Eosinophils (%) (Auto) 0 % (0-3) 0 % (0-3) Basophils (%) (Auto) 0 % (0-3) 0 % (0-3) Neutrophils # (Auto) 8.8 x10^3/uL (1.8-7.7) 9.0 x10^3/uL (1.8-7.7) Lymphocytes # (Auto) 0.9 x10^3/uL (1.0-4.8) 0.8 x10^3/uL (1.0-4.8) Monocytes # (Auto) 0.8 x10^3/uL (0.0-1.1) 1.2 x10^3/uL (0.0-1.1) Eosinophils # (Auto) 0.0 x10^3/uL (0.0-0.7) 0.0 x10^3/uL (0.0-0.7) Basophils # (Auto) 0.0 x10^3/uL (0.0-0.2) 0.0 x10^3/uL (0.0-0.2) Test 01/29/19 05:23 Sodium Level 145 mmol/L (136-145) Potassium Level 3.4 mmol/L (3.5-5.1) Chloride Level 110 mmol/L (98-107) Carbon Dioxide Level 21 mmol/L (21-32) Anion Gap 14 (6-14) Blood Urea Nitrogen 17 mg/dL (8-26) Creatinine 0.8 mg/dL (0.7-1.3) Estimated GFR (Cockcroft-Gault) 97.3 Glucose Level 76 mg/dL (70-99) Calcium Level 8.0 mg/dL (8.5-10.1) Phosphorus Level 3.3 mg/dL (2.6-4.7) Albumin 2.5 g/dL (3.4-5.0) Laboratory Tests Test 01/29/19 05:22 01/29/19 05:23 White Blood Count 11.1 x10^3/uL (4.0-11.0) Red Blood Count 3.60 x10^6/uL (4.30-5.70) Hemoglobin 11.6 g/dL (13.0-17.5) Hematocrit 33.6 % (39.0-53.0) Mean Corpuscular Volume 94 fL (79-100) Mean Corpuscular Hemoglobin 32 pg (25-35) Mean Corpuscular Hemoglobin Concent 34 g/dL (31-37) Red Cell Distribution Width 13.2 % (11.5-14.5) Platelet Count 121 x10^3/uL (140-400) Neutrophils (%) (Auto) 82 % (31-73) Lymphocytes (%) (Auto) 7 % (24-48) Monocytes (%) (Auto) 11 % (0-9) Eosinophils (%) (Auto) 0 % (0-3) Basophils (%) (Auto) 0 % (0-3) Neutrophils # (Auto) 9.0 x10^3/uL (1.8-7.7) Lymphocytes # (Auto) 0.8 x10^3/uL (1.0-4.8) Monocytes # (Auto) 1.2 x10^3/uL (0.0-1.1) Eosinophils # (Auto) 0.0 x10^3/uL (0.0-0.7) Basophils # (Auto) 0.0 x10^3/uL (0.0-0.2) Sodium Level 145 mmol/L (136-145) Potassium Level 3.4 mmol/L (3.5-5.1) Chloride Level 110 mmol/L (98-107) Carbon Dioxide Level 21 mmol/L (21-32) Anion Gap 14 (6-14) Blood Urea Nitrogen 17 mg/dL (8-26) Creatinine 0.8 mg/dL (0.7-1.3) Estimated GFR (Cockcroft-Gault) 97.3 Glucose Level 76 mg/dL (70-99) Calcium Level 8.0 mg/dL (8.5-10.1) Phosphorus Level 3.3 mg/dL (2.6-4.7) Albumin 2.5 g/dL (3.4-5.0) Impression . 1. Acute respiratory failure secondary to [id number] cardiopulmonary arrest. 2. [id number] cardiopulmonary arrest. 3. Ventricular fibrillation. 4. Coronary artery disease. 5. Ischemic cardiomyopathy with ejection fraction of 30-35%. 6. Status post stent placement to the left circumflex. 7. [id number]-usiqnro diastolic heart failure. 8. Possible pneumonia/aspiration. 9. Left traumatic pneumothorax.S/P CHEST TUBE 10. Elevated liver chemistries. 11. Acute renal failure. 12. Hypothyroidism. 13. Tobacco dependent. 14. Positive drug screen. Plan . EXTUBATED 01/27 D/C WALL SUCTION NO PTX WILL CLAMP TUBE AND POSSIBLY REMOVE IN AM CXR NO PTX D/W NO AIRLEAK WITH CHEST TUBE D/W RN AND RT ANTIBX PER ID FOLLOW CARD INPUT JOE WHITE MD Jan 29, 2019 11:34
--- NOTE | 2019-01-29 12:30 | PDOC ---
PROGRESS NOTES Subjective Subjective Patient seen and examined He looks and feels better. Objective Objective Vital Signs Date Time Temp Pulse Resp B/P (MAP) Pulse Ox O2 Delivery O2 Flow Rate FiO2 01/29/19 11:00 98.1 84 14 166/102 (123) 95 Nasal Cannula 2.0 98.1 Intake and Output 01/29/19 07:00 Intake Total 250 ml Output Total 980 ml Balance -730 ml Intake Oral 0 ml IV Total 150 ml Tube Feeding 100 ml Output Urine Total 980 ml # Voids 3 # Bowel Movements 1 Physical Exam Abdomen: Normal bowel sounds Heart: Regular rate General: mild distress Lungs: Other (mildly decreased breath sounds) Assessment Assessment Problems Medical Problems: (1) Cardiorespiratory arrest Status: Acute (2) Elevated liver function tests Status: Acute (3) Elevated troponin Status: Acute (4) Hyperglycemia Status: Acute (5) Hypokalemia Status: Acute (6) Metabolic acidosis Status: Acute (7) Renal insufficiency Status: Acute (8) Ribs, multiple fractures Status: Acute (9) Severe sepsis Status: Acute (10) STEMI (ST elevation myocardial infarction) Status: Acute (11) Traumatic pneumothorax Status: Acute 1. Vfib OOH arrest: culprit was occluded LCx S/P 3 stents. Continuing present treatment. Patient is off the ventilator. 2. CAD: new as above 3. ICM: EF 30-35% 4. Acute diastolic/systolic CHF 5. Acute respiratory failure with combination of CHF and pneumonia. Extubated. Followed by the pulmonary service. 6. Left apical pneumothorax/nondisplaced rib fractures. Chest tube being monitored. 7. Sepsis: ID following 8 Hypothyroidism: Defer to PCP new. TSH 10. Will need replacement defer to PCP 9. Sinus bradycardia: no further VTs. No pauses, maintaining SR 10. Encephalopathy: resolving Comment Review of Relevant I have reviewed the following items aydi (where applicable) has been applied. Labs Laboratory Tests Test 01/27/19 12:53 01/27/19 13:27 01/28/19 04:30 01/29/19 05:22 O2 Saturation 99 % (92-99) Arterial Blood pH 7.39 (7.35-7.45) Arterial Blood pCO2 at Patient Temp 32 mmHg (35-46) Arterial Blood pO2 at Patient Temp 168 mmHg (65-108) Arterial Blood HCO3 19 mmol/L (21-28) Arterial Blood Base Excess -5 mmol/L (-3-3) FiO2 40% White Blood Count 11.1 x10^3/uL (4.0-11.0) 10.7 x10^3/uL (4.0-11.0) 11.1 x10^3/uL (4.0-11.0) Red Blood Count 4.03 x10^6/uL (4.30-5.70) 3.78 x10^6/uL (4.30-5.70) 3.60 x10^6/uL (4.30-5.70) Hemoglobin 12.7 g/dL (13.0-17.5) 12.2 g/dL (13.0-17.5) 11.6 g/dL (13.0-17.5) Hematocrit 37.8 % (39.0-53.0) 35.1 % (39.0-53.0) 33.6 % (39.0-53.0) Mean Corpuscular Volume 94 fL (79-100) 93 fL (79-100) 94 fL (79-100) Mean Corpuscular Hemoglobin 32 pg (25-35) 32 pg (25-35) 32 pg (25-35) Mean Corpuscular Hemoglobin Concent 34 g/dL (31-37) 35 g/dL (31-37) 34 g/dL (31-37) Red Cell Distribution Width 13.7 % (11.5-14.5) 13.7 % (11.5-14.5) 13.2 % (11.5-14.5) Platelet Count 123 x10^3/uL (140-400) 119 x10^3/uL (140-400) 121 x10^3/uL (140-400) Sodium Level 142 mmol/L (136-145) 143 mmol/L (136-145) Potassium Level 3.6 mmol/L (3.5-5.1) 3.6 mmol/L (3.5-5.1) Chloride Level 109 mmol/L (98-107) 110 mmol/L (98-107) Carbon Dioxide Level 23 mmol/L (21-32) 22 mmol/L (21-32) Anion Gap 10 (6-14) 11 (6-14) Blood Urea Nitrogen 20 mg/dL (8-26) 18 mg/dL (8-26) Creatinine 0.9 mg/dL (0.7-1.3) 0.8 mg/dL (0.7-1.3) Estimated GFR (Cockcroft-Gault) 85.0 97.3 BUN/Creatinine Ratio 22 (6-20) Glucose Level 112 mg/dL (70-99) 90 mg/dL (70-99) Calcium Level 8.1 mg/dL (8.5-10.1) 8.1 mg/dL (8.5-10.1) Magnesium Level 1.9 mg/dL (1.8-2.4) Total Bilirubin 0.8 mg/dL (0.2-1.0) Aspartate Amino Transf (AST/SGOT) 153 U/L (15-37) Alanine Aminotransferase (ALT/SGPT) 115 U/L (16-63) Alkaline Phosphatase 87 U/L (46-116) Total Protein 5.5 g/dL (6.4-8.2) Albumin 2.4 g/dL (3.4-5.0) Albumin/Globulin Ratio 0.8 (1.0-1.7) Neutrophils (%) (Auto) 83 % (31-73) 82 % (31-73) Lymphocytes (%) (Auto) 9 % (24-48) 7 % (24-48) Monocytes (%) (Auto) 8 % (0-9) 11 % (0-9) Eosinophils (%) (Auto) 0 % (0-3) 0 % (0-3) Basophils (%) (Auto) 0 % (0-3) 0 % (0-3) Neutrophils # (Auto) 8.8 x10^3/uL (1.8-7.7) 9.0 x10^3/uL (1.8-7.7) Lymphocytes # (Auto) 0.9 x10^3/uL (1.0-4.8) 0.8 x10^3/uL (1.0-4.8) Monocytes # (Auto) 0.8 x10^3/uL (0.0-1.1) 1.2 x10^3/uL (0.0-1.1) Eosinophils # (Auto) 0.0 x10^3/uL (0.0-0.7) 0.0 x10^3/uL (0.0-0.7) Basophils # (Auto) 0.0 x10^3/uL (0.0-0.2) 0.0 x10^3/uL (0.0-0.2) Test 01/29/19 05:23 Sodium Level 145 mmol/L (136-145) Potassium Level 3.4 mmol/L (3.5-5.1) Chloride Level 110 mmol/L (98-107) Carbon Dioxide Level 21 mmol/L (21-32) Anion Gap 14 (6-14) Blood Urea Nitrogen 17 mg/dL (8-26) Creatinine 0.8 mg/dL (0.7-1.3) Estimated GFR (Cockcroft-Gault) 97.3 Glucose Level 76 mg/dL (70-99) Calcium Level 8.0 mg/dL (8.5-10.1) Phosphorus Level 3.3 mg/dL (2.6-4.7) Albumin 2.5 g/dL (3.4-5.0) Laboratory Tests Test 01/29/19 05:22 01/29/19 05:23 White Blood Count 11.1 x10^3/uL (4.0-11.0) Red Blood Count 3.60 x10^6/uL (4.30-5.70) Hemoglobin 11.6 g/dL (13.0-17.5) Hematocrit 33.6 % (39.0-53.0) Mean Corpuscular Volume 94 fL (79-100) Mean Corpuscular Hemoglobin 32 pg (25-35) Mean Corpuscular Hemoglobin Concent 34 g/dL (31-37) Red Cell Distribution Width 13.2 % (11.5-14.5) Platelet Count 121 x10^3/uL (140-400) Neutrophils (%) (Auto) 82 % (31-73) Lymphocytes (%) (Auto) 7 % (24-48) Monocytes (%) (Auto) 11 % (0-9) Eosinophils (%) (Auto) 0 % (0-3) Basophils (%) (Auto) 0 % (0-3) Neutrophils # (Auto) 9.0 x10^3/uL (1.8-7.7) Lymphocytes # (Auto) 0.8 x10^3/uL (1.0-4.8) Monocytes # (Auto) 1.2 x10^3/uL (0.0-1.1) Eosinophils # (Auto) 0.0 x10^3/uL (0.0-0.7) Basophils # (Auto) 0.0 x10^3/uL (0.0-0.2) Sodium Level 145 mmol/L (136-145) Potassium Level 3.4 mmol/L (3.5-5.1) Chloride Level 110 mmol/L (98-107) Carbon Dioxide Level 21 mmol/L (21-32) Anion Gap 14 (6-14) Blood Urea Nitrogen 17 mg/dL (8-26) Creatinine 0.8 mg/dL (0.7-1.3) Estimated GFR (Cockcroft-Gault) 97.3 Glucose Level 76 mg/dL (70-99) Calcium Level 8.0 mg/dL (8.5-10.1) Phosphorus Level 3.3 mg/dL (2.6-4.7) Albumin 2.5 g/dL (3.4-5.0) Microbiology 01/24/19 - Final, Resulted 01/24/19 - Final, Resulted 01/24/19 - Final, Resulted 01/24/19 - Final, Resulted 01/24/19 Gram Stain Evaluation - Final, Resulted 01/24/19 Sputum Culture, Resulted Pending 01/23/19 Blood Culture - Final, Complete NO GROWTH AFTER 5 DAYS Medications Current Medications Sodium Chloride 1,000 ml @ 1,000 mls/hr Q1H IV Last administered on 01/23/19at 17:23; Start 01/23/19 at 15:13; Stop 01/23/19 at 16:12; Status DC Sodium Bicarbonate (Sodium Bicarb Adult 8.4% Syr) 100 meq 1X ONCE IV Last administered on 01/23/19at 17:23; Start 01/23/19 at 15:30; Stop 01/23/19 at 15:59; Status DC Midazolam HCl (Versed) 5 mg STK-MED ONCE .ROUTE ; Start 01/23/19 at 15:25; Stop 01/23/19 at 15:25; Status DC Propofol 50 ml @ As Directed STK-MED ONCE IV ; Start 01/23/19 at 15:25; Stop 01/23/19 at 15:25; Status DC Calcium Gluconate (Calcium Gluconate) 1,000 mg 1X ONCE IVP Last administered on 01/23/19at 16:12; Start 01/23/19 at 16:00; Stop 01/23/19 at 16:01; Status DC Dextrose (Dextrose 50%-Water Syringe) 25 gm 1X ONCE IV ; Start 01/23/19 at 15:45; Stop 01/23/19 at 15:53; Status DC Insulin Human Regular (HumuLIN R VIAL) 10 unit 1X ONCE IV ; Start 01/23/19 at 15:45; Stop 01/23/19 at 15:53; Status DC Iohexol (Omnipaque 350 Mg/ml) 90 ml 1X ONCE IV Last administered on 01/23/19at 16:08; Start 01/23/19 at 15:45; Stop 01/23/19 at 16:00; Status DC Amiodarone HCl 900 mg/Dextrose 518 ml @ 0 mls/hr CONT PRN IV SEE I/O RECORD Last administered on 01/23/19at 17:06; Start 01/23/19 at 16:00; Stop 01/23/19 at 17:06; Status DC Piperacillin Sod/ Tazobactam Sod 3.375 gm/Sodium Chloride 50 ml @ 100 mls/hr 1X ONCE IV Last administered on 01/23/19at 22:19; Start 01/23/19 at 16:00; Stop 01/23/19 at 16:29; Status DC Vancomycin HCl 250 ml @ 250 mls/hr 1X ONCE IV ; Start 01/23/19 at 16:00; Stop 01/23/19 at 16:24; Status DC Fentanyl Citrate (Fentanyl 2ml Vial) 100 mcg 1X ONCE IV ; Start 01/23/19 at 16:15; Stop 01/23/19 at 16:24; Status DC Midazolam HCl (Versed) 2 mg 1X ONCE IV ; Start 01/23/19 at 16:15; Stop 01/23/19 at 16:24; Status DC Magnesium Sulfate/ Dextrose 100 ml @ 100 mls/hr 1X ONCE IV ; Start 01/23/19 at 16:15; Stop 01/23/19 at 17:14; Status DC Buspirone HCl (Buspar) 30 mg Q8H NG Last administered on 01/25/19at 08:47; Start 01/23/19 at 17:00; Stop 01/25/19 at 09:01; Status DC Acetaminophen (Tylenol) 650 mg Q4H NG Last administered on 01/25/19at 11:11; Start 01/23/19 at 16:15; Stop 01/26/19 at 01:00; Status DC Artificial Tears (Artificial Tears) 1 drop Q6HRS OU Last administered on 01/25/19at 23:53; Start 01/23/19 at 18:00; Stop 01/26/19 at 01:00; Status DC Artificial Tears (Artificial Tears) 1 drop PRN Q15MIN PRN OU DRY EYE; Start 01/23/19 at 16:15; Stop 01/26/19 at 01:00; Status DC Heparin Sodium (Porcine) (Heparin Sodium) 5,000 unit BID SQ ; Start 01/23/19 at 21:00; Stop 01/23/19 at 16:53; Status DC Pantoprazole Sodium (PROTONIX VIAL for IV PUSH) 40 mg DAILY IVP ; Start 01/24/19 at 09:00; Stop 01/23/19 at 20:27; Status DC Fentanyl Citrate 30 ml @ 0 mls/hr CONT PRN IV PER PROTOCOL.; Start 01/23/19 at 16:15; Stop 01/23/19 at 18:01; Status DC Propofol 100 ml @ 0 mls/hr CONT PRN IV PER PROTOCOL.; Start 01/23/19 at 16:15; Stop 01/23/19 at 20:27; Status DC Midazolam HCl 100 ml @ 0 mls/hr CONT PRN IV PER PROTOCOL. Last administered on 01/23/19at 16:50; Start 01/23/19 at 16:15; Stop 01/23/19 at 20:26; Status DC Vecuronium [place] (Norcuron Bolus) 7 mg PRN Q1HR PRN IV SHIVERING; Start 01/23/19 at 16:15; Stop 01/23/19 at 20:28; Status DC Pantoprazole Sodium (PROTONIX VIAL for IV PUSH) 40 mg DAILYAC IVP ; Start 01/24/19 at 07:30; Stop 01/23/19 at 16:25; Status DC Pantoprazole Sodium (PROTONIX VIAL for IV PUSH) 40 mg 1X ONCE IVP Last administered on 01/23/19at 23:43; Start 01/23/19 at 17:00; Stop 01/23/19 at 17:01; Status DC Enoxaparin Sodium (Lovenox 40mg Syringe) 40 mg Q24H SQ ; Start 01/23/19 at 21:00; Stop 01/23/19 at 23:59; Status DC Sodium Chloride 1,000 ml @ 150 mls/hr Q6H40M IV Last administered on 01/24/19at 04:43; Start 01/23/19 at 16:11; Stop 01/24/19 at 11:40; Status DC Potassium Chloride/Water 100 ml @ 100 mls/hr Q1H IV Last administered on 01/23/19at 19:06; Start 01/23/19 at 17:00; Stop 01/23/19 at 20:59; Status DC Potassium Chloride/Water 100 ml @ 100 mls/hr Q1H IV ; Start 01/23/19 at 22:00; Stop 01/23/19 at 23:59; Status DC Vancomycin HCl 1.75 gm/Sodium Chloride 500 ml @ 250 mls/hr 1X ONCE IV Last administered on 01/23/19at 23:42; Start 01/23/19 at 18:00; Stop 01/23/19 at 19:59; Status DC Aspirin (Aspirin Rectal Supp) 300 mg 1X ONCE GA Last administered on 01/23/19at 20:27; Start 01/23/19 at 17:00; Stop 01/23/19 at 17:01; Status DC Lidocaine HCl (Lidocaine 1% 20ml Vial) 20 ml STK-MED ONCE .ROUTE ; Start 01/23/19 at 16:37; Stop 01/23/19 at 16:37; Status DC Heparin Sodium/ Sodium Chloride 1,000 ml @ As Directed STK-MED ONCE .ROUTE ; Start 01/23/19 at 16:37; Stop 01/23/19 at 16:38; Status DC Heparin Sodium/ Dextrose 500 ml @ 0 mls/hr CONT PRN IV SEE I/O RECORD; Start 01/23/19 at 17:00; Stop 01/23/19 at 23:27; Status DC Midazolam HCl (Versed) 5 mg STK-MED ONCE .ROUTE ; Start 01/23/19 at 17:00; Stop 01/23/19 at 17:00; Status DC Sodium Chloride 1,000 ml @ 1,000 mls/hr 1X ONCE IV Last administered on 01/23/19at 18:58; Start 01/23/19 at 17:30; Stop 01/23/19 at 18:29; Status DC Propofol 50 ml @ 2.1 mls/hr 1X STAT IV Last administered on 01/23/19at 18:51; Start 01/23/19 at 17:17; Stop 01/23/19 at 20:27; Status DC Midazolam HCl (Versed) 5 mg 1X ONCE IV Last administered on 01/23/19at 18:18; Start 01/23/19 at 17:30; Stop 01/23/19 at 17:31; Status DC Fentanyl Citrate 30 ml @ 0 mls/hr CONT PRN PRN IV PER PROTOCOL; Start 01/23/19 at 17:45; Status Cancel Naloxone HCl (Narcan) 0.4 mg PRN Q2MIN PRN IV SEE INSTRUCTIONS; Start 01/23/19 at 17:45 Sodium Chloride 1,000 ml @ 25 mls/hr Q24H IV Last administered on 01/26/19at 15:11; Start 01/23/19 at 17:33 Midazolam HCl (Versed) 5 mg 1X ONCE IV Last administered on 01/23/19at 19:02; Start 01/23/19 at 18:15; Stop 01/23/19 at 18:16; Status DC Amiodarone HCl (Cordarone) 150 mg STK-MED ONCE .ROUTE ; Start 01/23/19 at 18:11; Stop 01/23/19 at 18:12; Status DC Iodixanol (Visipaque 320) 100 ml STK-MED ONCE .ROUTE ; Start 01/23/19 at 18:19; Stop 01/23/19 at 18:19; Status DC Bivalirudin (Angiomax) 250 mg STK-MED ONCE IV ; Start 01/23/19 at 18:20; Stop 01/23/19 at 18:20; Status DC Nitroglycerin (Nitroglycerin) 200 mcg 1X ONCE IART Last administered on 01/23/19at 19:10; Start 01/23/19 at 18:45; Stop 01/23/19 at 18:56; Status DC Heparin Sodium/ Sodium Chloride (HEPARIN for ARTERIAL LINE FLUSH) 1,000 unit 1X ONCE IART Last administered on 01/23/19 19:10; Start 01/23/19 at 18:45; Stop 01/23/19 at 18:56; Status DC Heparin Sodium/ Sodium Chloride (HEPARIN for ARTERIAL LINE FLUSH) 1,000 unit 1X ONCE IART Last administered on 01/23/19 19:10; Start 01/23/19 at 18:45; Stop 01/23/19 at 18:56; Status DC Iodixanol (Visipaque 320) 100 ml 1X ONCE IART Last administered on 01/23/19 19:10; Start 01/23/19 at 18:45; Stop 01/23/19 at 18:56; Status DC Bivalirudin (Angiomax) 250 mg 1X ONCE IV Last administered on 01/23/19 19:10; Start 01/23/19 at 18:45; Stop 01/23/19 at 18:56; Status DC Lidocaine HCl (Lidocaine 1% 20ml Vial) 10 ml 1X ONCE INJ Last administered on 01/23/19 19:10; Start 01/23/19 at 18:45; Stop 01/23/19 at 18:56; Status DC Amiodarone HCl 150 mg/Dextrose 103 ml @ 0 mls/hr 1X ONCE IV Last administered on 01/23/19 19:10; Start 01/23/19 at 19:00; Stop 01/23/19 at 19:01; Status DC Info (CONTRAST GIVEN -- Rx MONITORING) 1 each PRN DAILY PRN MC SEE COMMENTS; Start 01/23/19 at 19:00; Stop 01/25/19 at 18:59; Status DC Heparin Sodium/ Sodium Chloride 500 ml @ As Directed STK-MED ONCE .ROUTE ; Start 01/23/19 at 19:02; Stop 01/23/19 at 19:03; Status DC Sodium Chloride (Normal Saline Flush) 3 ml QSHIFT PRN IV AFTER MEDS AND BLOOD DRAWS; Start 01/23/19 at 19:30 Sodium Chloride 1,000 ml @ 75 mls/hr [id number] IV Last administered on 01/23/19at 20:27; Start 01/23/19 at 19:17; Stop 01/24/19 at 03:16; Status DC Aspirin (Ecotrin) 325 mg DAILYWBKFT PO Last administered on 01/28/19at 10:44; Start 01/24/19 at 08:00 Clopidogrel Bisulfate (Plavix) 75 mg DAILYWBKFT PO Last administered on 01/28/19at 10:44; Start 01/24/19 at 08:00 Acetaminophen (Tylenol) 650 mg PRN Q6HRS PRN PO MILD PAIN / TEMP Last administered on 01/27/19at 11:01; Start 01/23/19 at 19:30 Fentanyl Citrate (Fentanyl 2ml Vial) 50 mcg PRN Q1HR PRN IV MODERATE OR SEVERE PAIN; Start 01/23/19 at 19:30; Stop 01/26/19 at 00:59; Status DC Nitroglycerin (Nitrostat) 0.4 mg PRN Q5MIN PRN SL CHEST PAIN; Start 01/23/19 at 19:30 Amiodarone HCl 150 mg/Dextrose 103 ml @ 600 mls/hr 1X PRN PRN IV FOR VENTRICULAR TACHYCARDIA; Start 01/23/19 at 19:30 Lidocaine HCl (Lidocaine HCl 2% Abboject) 100 mg 1X PRN PRN IV FOR VENTRICULAR TACHYCARDIA; Start 01/23/19 at 19:30 Atropine Sulfate (ATROPINE 0.5mg SYRINGE) 0.5 mg PRN 1X PRN IV BRADYCARDIA; Start 01/23/19 at 19:30 Fentanyl Citrate (Fentanyl 2ml Vial) 100 mcg 1X ONCE IV Last administered on 01/23/19at 20:27; Start 01/23/19 at 19:45; Stop 01/23/19 at 20:25; Status DC Midazolam HCl (Versed) 2 mg 1X ONCE IV ; Start 01/23/19 at 19:45; Stop 01/23/19 at 20:25; Status DC Magnesium Sulfate/ Dextrose 100 ml @ 100 mls/hr 1X ONCE IV Last administered on 01/23/19at 20:46; Start 01/23/19 at 19:45; Stop 01/23/19 at 20:44; Status DC Heparin Sodium (Porcine) (Heparin Sodium) 5,000 unit BID SQ Last administered on 01/29/19at 09:12; Start 01/23/19 at 21:00 Pantoprazole Sodium (PROTONIX VIAL for IV PUSH) 40 mg DAILY IVP Last administered on 01/27/19at 08:06; Start 01/24/19 at 09:00; Stop 01/28/19 at 10:09; Status DC Fentanyl Citrate 30 ml @ 0 mls/hr CONT PRN IV PER PROTOCOL. Last administered on 01/25/19 16:54; Start 01/23/19 at 19:45; Stop 01/26/19 at 01:00; Status DC Propofol 100 ml @ 0 mls/hr CONT PRN IV PER PROTOCOL.; Start 01/23/19 at 19:45; Stop 01/26/19 at 01:00; Status DC Midazolam HCl 100 ml @ 0 mls/hr CONT PRN IV PER PROTOCOL. Last administered on 01/25/19at 23:11; Start 01/23/19 at 19:45; Stop 01/26/19 at 01:00; Status DC Vecuronium [place] (Norcuron Bolus) 7 mg PRN Q1HR PRN IV SHIVERING Last administered on 01/24/19 21:19; Start 01/23/19 at 19:45; Stop 01/28/19 at 09:12; Status DC Norepinephrine Bitartrate 250 ml @ 13.608 mls/ hr CONT PRN IV SEE I/O RECORD; Start 01/23/19 at 20:45; Stop 01/28/19 at 09:12; Status DC Sodium Chloride 500 ml @ 500 mls/hr 1X ONCE IV Last administered on 01/23/19at 20:57; Start 01/23/19 at 20:45; Stop 01/23/19 at 21:44; Status DC Daptomycin 440 mg/ Sodium Chloride 50 ml @ 100 mls/hr Q24H IV Last administered on 01/25/19 23:11; Start 01/23/19 at 23:00; Stop 01/26/19 at 07:52; Status DC Linezolid/Dextrose 300 ml @ 300 mls/hr Q12HR IV Last administered on 01/25/19 21:03; Start 01/24/19 at 09:00; Stop 01/26/19 at 07:52; Status DC Doxycycline Hyclate 100 mg/ Dextrose 100 ml @ 50 mls/hr Q12HR IV Last administered on 01/29/19at 09:12; Start 01/24/19 at 09:00 Doxycycline Hyclate 100 mg/ Dextrose 100 ml @ 50 mls/hr 1X ONCE IV Last administered on 01/23/19at 23:42; Start 01/23/19 at 23:30; Stop 01/24/19 at 01:29; Status DC Linezolid/Dextrose 300 ml @ 300 mls/hr ONCE ONCE IV Last administered on 01/23/19at 23:42; Start 01/23/19 at 23:00; Stop 01/23/19 at 23:59; Status DC Insulin Human Regular 150 unit/ Sodium Chloride 151.5 ml @ 0 mls/hr CONT PRN IV SEE I/O RECORD; Start 01/23/19 at 23:15; Stop 01/26/19 at 08:41; Status DC Magnesium Sulfate 50 ml @ 25 mls/hr 1X ONCE IV Last administered on 01/24/19at 08:29; Start 01/24/19 at 06:45; Stop 01/24/19 at 08:44; Status DC Piperacillin Sod/ Tazobactam Sod 3.375 gm/Sodium Chloride 50 ml @ 100 mls/hr Q6HRS IV Last administered on 01/29/19at 12:17; Start 01/24/19 at 08:00 Atorvastatin Calcium (Lipitor) 20 mg QHS PO Last administered on 01/26/19at 21:10; Start 01/24/19 at 21:00 Sodium Chloride 1,000 ml @ 100 mls/hr Q10H IV Last administered on 01/28/19at 16:51; Start 01/24/19 at 11:45 Amiodarone HCl 900 mg/Dextrose 518 ml @ 17 mls/hr 30H29M IV ; Start 01/24/19 at 15:00; Status Cancel Magnesium Sulfate/ Dextrose 100 ml @ 100 mls/hr 1X ONCE IV Last administered on 01/24/19at 13:52; Start 01/24/19 at 13:30; Stop 01/24/19 at 14:29; Status DC Lidocaine/Sodium Bicarbonate (Buffered Lidocaine 1%) 3 ml STK-MED ONCE .ROUTE ; Start 01/24/19 at 15:03; Stop 01/24/19 at 15:04; Status DC Amiodarone HCl 900 mg/Dextrose 518 ml @ 33 mls/hr CONT PRN IV SEE I/O RECORD Last administered on 01/24/19at 16:09; Start 01/24/19 at 16:30; Stop 01/24/19 at 16:30; Status DC Potassium Chloride/Water 100 ml @ 100 mls/hr Q1H IV ; Start 01/25/19 at 09:00; Stop 01/25/19 at 10:06; Status DC Amiodarone HCl 450 mg/Dextrose 259 ml @ 17.267 mls/ hr CONT PRN IV SEE I/O REC ORD Last administered on 01/26/19at 04:56; Start 01/25/19 at 13:15; Stop 01/26/19 at 13:47; Status DC Fentanyl Citrate 30 ml @ 0 mls/hr CONT PRN IV SEE PROTOCOL Last administered on 01/26/19at 18:46; Start 01/26/19 at 01:00; Stop 01/28/19 at 09:12; Status DC Propofol 100 ml @ 0 mls/hr CONT PRN IV SEE PROTOCOL; Start 01/26/19 at 01:00; Stop 01/28/19 at 09:12; Status DC Midazolam HCl 100 ml @ 0 mls/hr CONT PRN IV SEE PROTOCOL Last administered on 01/27/19at 02:20; Start 01/26/19 at 01:00; Stop 01/28/19 at 09:12; Status DC Lorazepam (Ativan Inj) 2 mg PRN Q4HRS PRN IV ANXIETY / AGITATION Last administered on 01/28/19at 03:56; Start 01/26/19 at 08:45; Stop 01/28/19 at 09:12; Status DC Morphine Sulfate (Morphine Sulfate) 2 mg PRN Q2HR PRN IV PAIN Last administered on 01/28/19at 04:56; Start 01/26/19 at 08:45; Stop 01/28/19 at 09:12; Status DC Lisinopril (Prinivil) 2.5 mg DAILY PO Last administered on 01/28/19at 10:44; Start 01/27/19 at 09:00 Metoprolol Tartrate (Lopressor) 12.5 mg BID PO Last administered on 01/28/19at 10:44; Start 01/26/19 at 21:00 Amiodarone HCl (Cordarone) 400 mg DAILY PO Last administered on 01/28/19at 10:44; Start 01/27/19 at 09:00 Amiodarone HCl (Cordarone) 400 mg 1X ONCE PO Last administered on 8/30/19at 14:34; Start 01/26/19 at 14:15; Stop 01/26/19 at 14:16; Status DC Epinephrine HCl (EPINEPHrine SYRINGE) 1 mg STK-MED ONCE .ROUTE ; Start 01/23/19 at 14:47; Stop 01/26/19 at 14:48; Status DC Sodium Bicarbonate (Sodium Bicarb Adult 8.4% Syr) 100 meq STK-MED ONCE .ROUTE ; Start 01/23/19 at 14:47; Stop 01/26/19 at 14:48; Status DC Lorazepam (Ativan Inj) 1 mg PRN Q4HRS PRN IV ANXIETY / AGITATION Last administered on 01/29/19at 10:27; Start 01/28/19 at 09:15 Morphine Sulfate (Morphine Sulfate) 1 mg PRN Q2HR PRN IV PAIN Last administered on 01/29/19at 02:20; Start 01/28/19 at 09:15 Oxybutynin Chloride (Ditropan) 5 mg [id number] PO Last administered on 01/28/19at 10:44; Start 01/28/19 at 10:00 Tamsulosin HCl (Flomax) 0.4 mg QHS PO ; Start 01/28/19 at 21:00 Famotidine (Pepcid Vial) 20 mg BID IVP Last administered on 01/29/19at 09:12; Start 01/28/19 at 10:30 Vitals/I & O Vital Sign - Last 24 Hours 01/28/19 01/28/19 01/28/19 01/28/19 16:00 16:52 18:52 20:00 Temp 99.6 99.6 Pulse 88 79 Resp 14 20 B/P (MAP) 110/56 (74) 163/92 (115) Pulse Ox 98 93 O2 Delivery Nasal Cannula Nasal Cannula Nasal Cannula Nasal Cannula O2 Flow Rate 2.0 2.0 2.0 2.0 01/28/19 01/28/19 01/28/19 01/28/19 20:27 21:00 22:06 22:50 Temp 98.1 98.1 Pulse 79 82 Resp 18 18 22 B/P (MAP) 163/92 138/79 (98) Pulse Ox 93 93 93 O2 Delivery Nasal Cannula Nasal Cannula Nasal Cannula O2 Flow Rate 2.0 2.0 2.0 01/29/19 01/29/19 01/29/19 01/29/19 00:21 00:52 02:20 02:30 Temp 98.2 98.2 Pulse 80 Resp 18 20 20 22 B/P (MAP) 156/86 (109) Pulse Ox 93 93 93 93 O2 Delivery Nasal Cannula Nasal Cannula Nasal Cannula Nasal Cannula O2 Flow Rate 2.0 2.0 2.0 2.0 01/29/19 01/29/19 01/29/19 01/29/19 02:53 07:00 08:00 11:00 Temp 97.3 98.1 97.3 98.1 Pulse 87 84 Resp 20 18 14 B/P (MAP) 154/88 (110) 166/102 (123) Pulse Ox 93 92 95 O2 Delivery Nasal Cannula Nasal Cannula Nasal Cannula Nasal Cannula O2 Flow Rate 2.0 2.0 2.0 2.0 Intake and Output 01/28/19 01/28/19 01/29/19 15:00 23:00 07:00 Intake Total 100 ml 50 ml 100 ml Output Total 650 ml 330 ml Balance -550 ml -280 ml 100 ml ISAMAR CHEUNG MD Jan 29, 2019 12:30
[2019-01-29] MEDS ORDERED: LABETALOL 20 MG/4 ML DISP.SYRIN. IVP PRN (13:00)
--- NOTE | 2019-01-29 14:46 | PDOC ---
PROGRESS NOTES Assessment Problems Medical Problems: (1) Cardiorespiratory arrest Status: Acute (2) Elevated liver function tests Status: Acute (3) Elevated troponin Status: Acute (4) Hyperglycemia Status: Acute (5) Hypokalemia Status: Acute (6) Metabolic acidosis Status: Acute (7) Renal insufficiency Status: Acute (8) Ribs, multiple fractures Status: Acute (9) Severe sepsis Status: Acute (10) STEMI (ST elevation myocardial infarction) Status: Acute (11) Traumatic pneumothorax Status: Acute Anoxia/hypoxia/metabolic encephalopathy. EEG shows findings consistent with this, no epileptic activity. Head CT unremarkable Dysphagia, failed initial swallow study S/P cardiac arrest, downtime estimated on and off for 33 minutes. S/P hypothermia protocol CAD with LCX occlusion, s/p stents placement. Respiratory failure. Hypokalemia, K+ 2.8 CHF, EF 30-35%. Lactic acidosis. Leukocytosis. Pulmonary infiltrate. Hepatic injury. Renal failure. Hematuria. Rib and sternum fracture. Plan Speech therapy Treat medical and cardiac diseases. Discussed with family, patient improving all agree Subjective No complaints Objective Vital Signs Date Time Temp Pulse Resp B/P (MAP) Pulse Ox O2 Delivery O2 Flow Rate FiO2 01/29/19 11:00 98.1 84 14 166/102 (123) 95 Nasal Cannula 2.0 98.1 Intake and Output 01/29/19 06:59 Intake Total 250 ml Output Total 1055 ml Balance -805 ml Intake Oral 0 ml IV Total 150 ml Tube Feeding 100 ml Output Urine Total 1055 ml # Voids 3 # Bowel Movements 1 PHYSICAL EXAM Alert, follows commands, does not know date or location PERRL. EOMI. CN: no focal findings. Muscle tone: normal. Muscle strength: 4/5 DTR: 1+ Plantar reflex: flexor Gait: not examined in bed. Sensory exam: no abnormal findings. No cerebellar signs elicited. Review of Relevant I have reviewed the following items yadi (where applicable) has been applied. Labs Laboratory Tests Test 01/28/19 04:30 01/29/19 05:22 01/29/19 05:23 White Blood Count 10.7 x10^3/uL (4.0-11.0) 11.1 x10^3/uL (4.0-11.0) Red Blood Count 3.78 x10^6/uL (4.30-5.70) 3.60 x10^6/uL (4.30-5.70) Hemoglobin 12.2 g/dL (13.0-17.5) 11.6 g/dL (13.0-17.5) Hematocrit 35.1 % (39.0-53.0) 33.6 % (39.0-53.0) Mean Corpuscular Volume 93 fL (79-100) 94 fL (79-100) Mean Corpuscular Hemoglobin 32 pg (25-35) 32 pg (25-35) Mean Corpuscular Hemoglobin Concent 35 g/dL (31-37) 34 g/dL (31-37) Red Cell Distribution Width 13.7 % (11.5-14.5) 13.2 % (11.5-14.5) Platelet Count 119 x10^3/uL (140-400) 121 x10^3/uL (140-400) Neutrophils (%) (Auto) 83 % (31-73) 82 % (31-73) Lymphocytes (%) (Auto) 9 % (24-48) 7 % (24-48) Monocytes (%) (Auto) 8 % (0-9) 11 % (0-9) Eosinophils (%) (Auto) 0 % (0-3) 0 % (0-3) Basophils (%) (Auto) 0 % (0-3) 0 % (0-3) Neutrophils # (Auto) 8.8 x10^3/uL (1.8-7.7) 9.0 x10^3/uL (1.8-7.7) Lymphocytes # (Auto) 0.9 x10^3/uL (1.0-4.8) 0.8 x10^3/uL (1.0-4.8) Monocytes # (Auto) 0.8 x10^3/uL (0.0-1.1) 1.2 x10^3/uL (0.0-1.1) Eosinophils # (Auto) 0.0 x10^3/uL (0.0-0.7) 0.0 x10^3/uL (0.0-0.7) Basophils # (Auto) 0.0 x10^3/uL (0.0-0.2) 0.0 x10^3/uL (0.0-0.2) Sodium Level 143 mmol/L (136-145) 145 mmol/L (136-145) Potassium Level 3.6 mmol/L (3.5-5.1) 3.4 mmol/L (3.5-5.1) Chloride Level 110 mmol/L (98-107) 110 mmol/L (98-107) Carbon Dioxide Level 22 mmol/L (21-32) 21 mmol/L (21-32) Anion Gap 11 (6-14) 14 (6-14) Blood Urea Nitrogen 18 mg/dL (8-26) 17 mg/dL (8-26) Creatinine 0.8 mg/dL (0.7-1.3) 0.8 mg/dL (0.7-1.3) Estimated GFR (Cockcroft-Gault) 97.3 97.3 Glucose Level 90 mg/dL (70-99) 76 mg/dL (70-99) Calcium Level 8.1 mg/dL (8.5-10.1) 8.0 mg/dL (8.5-10.1) Phosphorus Level 3.3 mg/dL (2.6-4.7) Albumin 2.5 g/dL (3.4-5.0) Laboratory Tests Test 01/29/19 05:22 01/29/19 05:23 White Blood Count 11.1 x10^3/uL (4.0-11.0) Red Blood Count 3.60 x10^6/uL (4.30-5.70) Hemoglobin 11.6 g/dL (13.0-17.5) Hematocrit 33.6 % (39.0-53.0) Mean Corpuscular Volume 94 fL (79-100) Mean Corpuscular Hemoglobin 32 pg (25-35) Mean Corpuscular Hemoglobin Concent 34 g/dL (31-37) Red Cell Distribution Width 13.2 % (11.5-14.5) Platelet Count 121 x10^3/uL (140-400) Neutrophils (%) (Auto) 82 % (31-73) Lymphocytes (%) (Auto) 7 % (24-48) Monocytes (%) (Auto) 11 % (0-9) Eosinophils (%) (Auto) 0 % (0-3) Basophils (%) (Auto) 0 % (0-3) Neutrophils # (Auto) 9.0 x10^3/uL (1.8-7.7) Lymphocytes # (Auto) 0.8 x10^3/uL (1.0-4.8) Monocytes # (Auto) 1.2 x10^3/uL (0.0-1.1) Eosinophils # (Auto) 0.0 x10^3/uL (0.0-0.7) Basophils # (Auto) 0.0 x10^3/uL (0.0-0.2) Sodium Level 145 mmol/L (136-145) Potassium Level 3.4 mmol/L (3.5-5.1) Chloride Level 110 mmol/L (98-107) Carbon Dioxide Level 21 mmol/L (21-32) Anion Gap 14 (6-14) Blood Urea Nitrogen 17 mg/dL (8-26) Creatinine 0.8 mg/dL (0.7-1.3) Estimated GFR (Cockcroft-Gault) 97.3 Glucose Level 76 mg/dL (70-99) Calcium Level 8.0 mg/dL (8.5-10.1) Phosphorus Level 3.3 mg/dL (2.6-4.7) Albumin 2.5 g/dL (3.4-5.0) Microbiology 01/24/19 - Final, Resulted 01/24/19 - Final, Resulted 01/24/19 - Final, Resulted 01/24/19 - Final, Resulted 01/24/19 Gram Stain Evaluation - Final, Resulted 01/24/19 Sputum Culture, Resulted Pending 01/23/19 Blood Culture - Final, Complete NO GROWTH AFTER 5 DAYS Medications Current Medications Sodium Chloride 1,000 ml @ 1,000 mls/hr Q1H IV Last administered on 01/23/19at 17:23; Start 01/23/19 at 15:13; Stop 01/23/19 at 16:12; Status DC Sodium Bicarbonate (Sodium Bicarb Adult 8.4% Syr) 100 meq 1X ONCE IV Last administered on 01/23/19at 17:23; Start 01/23/19 at 15:30; Stop 01/23/19 at 15:59; Status DC Midazolam HCl (Versed) 5 mg STK-MED ONCE .ROUTE ; Start 01/23/19 at 15:25; Stop 01/23/19 at 15:25; Status DC Propofol 50 ml @ As Directed STK-MED ONCE IV ; Start 01/23/19 at 15:25; Stop 01/23/19 at 15:25; Status DC Calcium Gluconate (Calcium Gluconate) 1,000 mg 1X ONCE IVP Last administered on 01/23/19at 16:12; Start 01/23/19 at 16:00; Stop 01/23/19 at 16:01; Status DC Dextrose (Dextrose 50%-Water Syringe) 25 gm 1X ONCE IV ; Start 01/23/19 at 15:45; Stop 01/23/19 at 15:53; Status DC Insulin Human Regular (HumuLIN R VIAL) 10 unit 1X ONCE IV ; Start 01/23/19 at 15:45; Stop 01/23/19 at 15:53; Status DC Iohexol (Omnipaque 350 Mg/ml) 90 ml 1X ONCE IV Last administered on 01/23/19at 16:08; Start 01/23/19 at 15:45; Stop 01/23/19 at 16:00; Status DC Amiodarone HCl 900 mg/Dextrose 518 ml @ 0 mls/hr CONT PRN IV SEE I/O RECORD Last administered on 01/23/19at 17:06; Start 01/23/19 at 16:00; Stop 01/23/19 at 17:06; Status DC Piperacillin Sod/ Tazobactam Sod 3.375 gm/Sodium Chloride 50 ml @ 100 mls/hr 1X ONCE IV Last administered on 01/23/19at 22:19; Start 01/23/19 at 16:00; Stop 01/23/19 at 16:29; Status DC Vancomycin HCl 250 ml @ 250 mls/hr 1X ONCE IV ; Start 01/23/19 at 16:00; Stop 01/23/19 at 16:24; Status DC Fentanyl Citrate (Fentanyl 2ml Vial) 100 mcg 1X ONCE IV ; Start 01/23/19 at 16:15; Stop 01/23/19 at 16:24; Status DC Midazolam HCl (Versed) 2 mg 1X ONCE IV ; Start 01/23/19 at 16:15; Stop 01/23/19 at 16:24; Status DC Magnesium Sulfate/ Dextrose 100 ml @ 100 mls/hr 1X ONCE IV ; Start 01/23/19 at 16:15; Stop 01/23/19 at 17:14; Status DC Buspirone HCl (Buspar) 30 mg Q8H NG Last administered on 01/25/19at 08:47; Start 01/23/19 at 17:00; Stop 01/25/19 at 09:01; Status DC Acetaminophen (Tylenol) 650 mg Q4H NG Last administered on 01/25/19at 11:11; Start 01/23/19 at 16:15; Stop 01/26/19 at 01:00; Status DC Artificial Tears (Artificial Tears) 1 drop Q6HRS OU Last administered on 01/25/19at 23:53; Start 01/23/19 at 18:00; Stop 01/26/19 at 01:00; Status DC Artificial Tears (Artificial Tears) 1 drop PRN Q15MIN PRN OU DRY EYE; Start 01/23/19 at 16:15; Stop 01/26/19 at 01:00; Status DC Heparin Sodium (Porcine) (Heparin Sodium) 5,000 unit BID SQ ; Start 01/23/19 at 21:00; Stop 01/23/19 at 16:53; Status DC Pantoprazole Sodium (PROTONIX VIAL for IV PUSH) 40 mg DAILY IVP ; Start 01/24/19 at 09:00; Stop 01/23/19 at 20:27; Status DC Fentanyl Citrate 30 ml @ 0 mls/hr CONT PRN IV PER PROTOCOL.; Start 01/23/19 at 16:15; Stop 01/23/19 at 18:01; Status DC Propofol 100 ml @ 0 mls/hr CONT PRN IV PER PROTOCOL.; Start 01/23/19 at 16:15; Stop 01/23/19 at 20:27; Status DC Midazolam HCl 100 ml @ 0 mls/hr CONT PRN IV PER PROTOCOL. Last administered on 01/23/19at 16:50; Start 01/23/19 at 16:15; Stop 01/23/19 at 20:26; Status DC Vecuronium [place] (Norcuron Bolus) 7 mg PRN Q1HR PRN IV SHIVERING; Start 01/23/19 at 16:15; Stop 01/23/19 at 20:28; Status DC Pantoprazole Sodium (PROTONIX VIAL for IV PUSH) 40 mg DAILYAC IVP ; Start 01/24/19 at 07:30; Stop 01/23/19 at 16:25; Status DC Pantoprazole Sodium (PROTONIX VIAL for IV PUSH) 40 mg 1X ONCE IVP Last administered on 01/23/19at 23:43; Start 01/23/19 at 17:00; Stop 01/23/19 at 17:01; Status DC Enoxaparin Sodium (Lovenox 40mg Syringe) 40 mg Q24H SQ ; Start 01/23/19 at 21:00; Stop 01/23/19 at 23:59; Status DC Sodium Chloride 1,000 ml @ 150 mls/hr Q6H40M IV Last administered on 01/24/19at 04:43; Start 01/23/19 at 16:11; Stop 01/24/19 at 11:40; Status DC Potassium Chloride/Water 100 ml @ 100 mls/hr Q1H IV Last administered on 01/23/19at 19:06; Start 01/23/19 at 17:00; Stop 01/23/19 at 20:59; Status DC Potassium Chloride/Water 100 ml @ 100 mls/hr Q1H IV ; Start 01/23/19 at 22:00; Stop 01/23/19 at 23:59; Status DC Vancomycin HCl 1.75 gm/Sodium Chloride 500 ml @ 250 mls/hr 1X ONCE IV Last administered on 01/23/19at 23:42; Start 01/23/19 at 18:00; Stop 01/23/19 at 19:59; Status DC Aspirin (Aspirin Rectal Supp) 300 mg 1X ONCE MS Last administered on 01/23/19at 20:27; Start 01/23/19 at 17:00; Stop 01/23/19 at 17:01; Status DC Lidocaine HCl (Lidocaine 1% 20ml Vial) 20 ml STK-MED ONCE .ROUTE ; Start 01/23/19 at 16:37; Stop 01/23/19 at 16:37; Status DC Heparin Sodium/ Sodium Chloride 1,000 ml @ As Directed STK-MED ONCE .ROUTE ; Start 01/23/19 at 16:37; Stop 01/23/19 at 16:38; Status DC Heparin Sodium/ Dextrose 500 ml @ 0 mls/hr CONT PRN IV SEE I/O RECORD; Start 01/23/19 at 17:00; Stop 01/23/19 at 23:27; Status DC Midazolam HCl (Versed) 5 mg STK-MED ONCE .ROUTE ; Start 01/23/19 at 17:00; Stop 01/23/19 at 17:00; Status DC Sodium Chloride 1,000 ml @ 1,000 mls/hr 1X ONCE IV Last administered on 01/23/19at 18:58; Start 01/23/19 at 17:30; Stop 01/23/19 at 18:29; Status DC Propofol 50 ml @ 2.1 mls/hr 1X STAT IV Last administered on 01/23/19at 18:51; Start 01/23/19 at 17:17; Stop 01/23/19 at 20:27; Status DC Midazolam HCl (Versed) 5 mg 1X ONCE IV Last administered on 01/23/19at 18:18; Start 01/23/19 at 17:30; Stop 01/23/19 at 17:31; Status DC Fentanyl Citrate 30 ml @ 0 mls/hr CONT PRN PRN IV PER PROTOCOL; Start 01/23/19 at 17:45; Status Cancel Naloxone HCl (Narcan) 0.4 mg PRN Q2MIN PRN IV SEE INSTRUCTIONS; Start 01/23/19 at 17:45 Sodium Chloride 1,000 ml @ 25 mls/hr Q24H IV Last administered on 01/26/19at 15:11; Start 01/23/19 at 17:33 Midazolam HCl (Versed) 5 mg 1X ONCE IV Last administered on 01/23/19at 19:02; Start 01/23/19 at 18:15; Stop 01/23/19 at 18:16; Status DC Amiodarone HCl (Cordarone) 150 mg STK-MED ONCE .ROUTE ; Start 01/23/19 at 18:11; Stop 01/23/19 at 18:12; Status DC Iodixanol (Visipaque 320) 100 ml STK-MED ONCE .ROUTE ; Start 01/23/19 at 18:19; Stop 01/23/19 at 18:19; Status DC Bivalirudin (Angiomax) 250 mg STK-MED ONCE IV ; Start 01/23/19 at 18:20; Stop 01/23/19 at 18:20; Status DC Nitroglycerin (Nitroglycerin) 200 mcg 1X ONCE IART Last administered on 01/23/19at 19:10; Start 01/23/19 at 18:45; Stop 01/23/19 at 18:56; Status DC Heparin Sodium/ Sodium Chloride (HEPARIN for ARTERIAL LINE FLUSH) 1,000 unit 1X ONCE IART Last administered on 01/23/19 19:10; Start 01/23/19 at 18:45; Stop 01/23/19 at 18:56; Status DC Heparin Sodium/ Sodium Chloride (HEPARIN for ARTERIAL LINE FLUSH) 1,000 unit 1X ONCE IART Last administered on 01/23/19at 19:10; Start 01/23/19 at 18:45; Stop 01/23/19 at 18:56; Status DC Iodixanol (Visipaque 320) 100 ml 1X ONCE IART Last administered on 01/23/19 19:10; Start 01/23/19 at 18:45; Stop 01/23/19 at 18:56; Status DC Bivalirudin (Angiomax) 250 mg 1X ONCE IV Last administered on 01/23/19 19:10; Start 01/23/19 at 18:45; Stop 01/23/19 at 18:56; Status DC Lidocaine HCl (Lidocaine 1% 20ml Vial) 10 ml 1X ONCE INJ Last administered on 01/23/19 19:10; Start 01/23/19 at 18:45; Stop 01/23/19 at 18:56; Status DC Amiodarone HCl 150 mg/Dextrose 103 ml @ 0 mls/hr 1X ONCE IV Last administered on 01/23/19 19:10; Start 01/23/19 at 19:00; Stop 01/23/19 at 19:01; Status DC Info (CONTRAST GIVEN -- Rx MONITORING) 1 each PRN DAILY PRN MC SEE COMMENTS; Start 01/23/19 at 19:00; Stop 01/25/19 at 18:59; Status DC Heparin Sodium/ Sodium Chloride 500 ml @ As Directed STK-MED ONCE .ROUTE ; Sta rt 01/23/19 at 19:02; Stop 01/23/19 at 19:03; Status DC Sodium Chloride (Normal Saline Flush) 3 ml QSHIFT PRN IV AFTER MEDS AND BLOOD DRAWS; Start 01/23/19 at 19:30 Sodium Chloride 1,000 ml @ 75 mls/hr [id number] IV Last administered on 01/23/19at 20:27; Start 01/23/19 at 19:17; Stop 01/24/19 at 03:16; Status DC Aspirin (Ecotrin) 325 mg DAILYWBKFT PO Last administered on 01/28/19at 10:44; Start 01/24/19 at 08:00 Clopidogrel Bisulfate (Plavix) 75 mg DAILYWBKFT PO Last administered on 01/28/19at 10:44; Start 01/24/19 at 08:00 Acetaminophen (Tylenol) 650 mg PRN Q6HRS PRN PO MILD PAIN / TEMP Last administered on 01/27/19at 11:01; Start 01/23/19 at 19:30 Fentanyl Citrate (Fentanyl 2ml Vial) 50 mcg PRN Q1HR PRN IV MODERATE OR SEVERE PAIN; Start 01/23/19 at 19:30; Stop 01/26/19 at 00:59; Status DC Nitroglycerin (Nitrostat) 0.4 mg PRN Q5MIN PRN SL CHEST PAIN; Start 01/23/19 at 19:30 Amiodarone HCl 150 mg/Dextrose 103 ml @ 600 mls/hr 1X PRN PRN IV FOR VENTRICULAR TACHYCARDIA; Start 01/23/19 at 19:30 Lidocaine HCl (Lidocaine HCl 2% Abboject) 100 mg 1X PRN PRN IV FOR VENTRICULAR TACHYCARDIA; Start 01/23/19 at 19:30 Atropine Sulfate (ATROPINE 0.5mg SYRINGE) 0.5 mg PRN 1X PRN IV BRADYCARDIA; Start 01/23/19 at 19:30 Fentanyl Citrate (Fentanyl 2ml Vial) 100 mcg 1X ONCE IV Last administered on 01/23/19at 20:27; Start 01/23/19 at 19:45; Stop 01/23/19 at 20:25; Status DC Midazolam HCl (Versed) 2 mg 1X ONCE IV ; Start 01/23/19 at 19:45; Stop 01/23/19 at 20:25; Status DC Magnesium Sulfate/ Dextrose 100 ml @ 100 mls/hr 1X ONCE IV Last administered on 01/23/19at 20:46; Start 01/23/19 at 19:45; Stop 01/23/19 at 20:44; Status DC Heparin Sodium (Porcine) (Heparin Sodium) 5,000 unit BID SQ Last administered on 01/29/19at 09:12; Start 01/23/19 at 21:00 Pantoprazole Sodium (PROTONIX VIAL for IV PUSH) 40 mg DAILY IVP Last administered on 01/27/19 08:06; Start 01/24/19 at 09:00; Stop 01/28/19 at 10:09; Status DC Fentanyl Citrate 30 ml @ 0 mls/hr CONT PRN IV PER PROTOCOL. Last administered on 01/25/19 16:54; Start 01/23/19 at 19:45; Stop 01/26/19 at 01:00; Status DC Propofol 100 ml @ 0 mls/hr CONT PRN IV PER PROTOCOL.; Start 01/23/19 at 19:45; Stop 01/26/19 at 01:00; Status DC Midazolam HCl 100 ml @ 0 mls/hr CONT PRN IV PER PROTOCOL. Last administered on 01/25/19 23:11; Start 01/23/19 at 19:45; Stop 01/26/19 at 01:00; Status DC Vecuronium [place] (Norcuron Bolus) 7 mg PRN Q1HR PRN IV SHIVERING Last administered on 01/24/19 21:19; Start 01/23/19 at 19:45; Stop 01/28/19 at 09:12; Status DC Norepinephrine Bitartrate 250 ml @ 13.608 mls/ hr CONT PRN IV SEE I/O RECORD; Start 01/23/19 at 20:45; Stop 01/28/19 at 09:12; Status DC Sodium Chloride 500 ml @ 500 mls/hr 1X ONCE IV Last administered on 01/23/19at 20:57; Start 01/23/19 at 20:45; Stop 01/23/19 at 21:44; Status DC Daptomycin 440 mg/ Sodium Chloride 50 ml @ 100 mls/hr Q24H IV Last administered on 01/25/19 23:11; Start 01/23/19 at 23:00; Stop 01/26/19 at 07:52; Status DC Linezolid/Dextrose 300 ml @ 300 mls/hr Q12HR IV Last administered on 01/25/19 21:03; Start 01/24/19 at 09:00; Stop 01/26/19 at 07:52; Status DC Doxycycline Hyclate 100 mg/ Dextrose 100 ml @ 50 mls/hr Q12HR IV Last admini stered on 9/2/19at 09:12; Start 01/24/19 at 09:00 Doxycycline Hyclate 100 mg/ Dextrose 100 ml @ 50 mls/hr 1X ONCE IV Last adm inistered on 01/23/19at 23:42; Start 01/23/19 at 23:30; Stop 01/24/19 at 01:29; Status DC Linezolid/Dextrose 300 ml @ 300 mls/hr ONCE ONCE IV Last administered on 01/23/19at 23:42; Start 01/23/19 at 23:00; Stop 01/23/19 at 23:59; Status DC Insulin Human Regular 150 unit/ Sodium Chloride 151.5 ml @ 0 mls/hr CONT PRN IV SEE I/O RECORD; Start 01/23/19 at 23:15; Stop 01/26/19 at 08:41; Status DC Magnesium Sulfate 50 ml @ 25 mls/hr 1X ONCE IV Last administered on 01/24/19at 08:29; Start 01/24/19 at 06:45; Stop 01/24/19 at 08:44; Status DC Piperacillin Sod/ Tazobactam Sod 3.375 gm/Sodium Chloride 50 ml @ 100 mls/hr Q6HRS IV Last administered on 01/29/19at 12:17; Start 01/24/19 at 08:00 Atorvastatin Calcium (Lipitor) 20 mg QHS PO Last administered on 01/26/19at 21:10; Start 01/24/19 at 21:00 Sodium Chloride 1,000 ml @ 100 mls/hr Q10H IV Last administered on 01/28/19at 16:51; Start 01/24/19 at 11:45 Amiodarone HCl 900 mg/Dextrose 518 ml @ 17 mls/hr 30H29M IV ; Start 01/24/19 at 15:00; Status Cancel Magnesium Sulfate/ Dextrose 100 ml @ 100 mls/hr 1X ONCE IV Last administered on 01/24/19at 13:52; Start 01/24/19 at 13:30; Stop 01/24/19 at 14:29; Status DC Lidocaine/Sodium Bicarbonate (Buffered Lidocaine 1%) 3 ml STK-MED ONCE .ROUTE ; Start 01/24/19 at 15:03; Stop 01/24/19 at 15:04; Status DC Amiodarone HCl 900 mg/Dextrose 518 ml @ 33 mls/hr CONT PRN IV SEE I/O RECORD Last administered on 01/24/19at 16:09; Start 01/24/19 at 16:30; Stop 01/24/19 at 16:30; Status DC Potassium Chloride/Water 100 ml @ 100 mls/hr Q1H IV ; Start 01/25/19 at 09:00; Stop 01/25/19 at 10:06; Status DC Amiodarone HCl 450 mg/Dextrose 259 ml @ 17.267 mls/ hr CONT PRN IV SEE I/O RECORD Last administered on 01/26/19at 04:56; Start 01/25/19 at 13:15; Stop 01/26/19 at 13:47; Status DC Fentanyl Citrate 30 ml @ 0 mls/hr CONT PRN IV SEE PROTOCOL Last administered on 01/26/19at 18:46; Start 01/26/19 at 01:00; Stop 01/28/19 at 09:12; Status DC Propofol 100 ml @ 0 mls/hr CONT PRN IV SEE PROTOCOL; Start 01/26/19 at 01:00; Stop 01/28/19 at 09:12; Status DC Midazolam HCl 100 ml @ 0 mls/hr CONT PRN IV SEE PROTOCOL Last administered on 01/27/19at 02:20; Start 01/26/19 at 01:00; Stop 01/28/19 at 09:12; Status DC Lorazepam (Ativan Inj) 2 mg PRN Q4HRS PRN IV ANXIETY / AGITATION Last administered on 01/28/19at 03:56; Start 01/26/19 at 08:45; Stop 01/28/19 at 09:12; Status DC Morphine Sulfate (Morphine Sulfate) 2 mg PRN Q2HR PRN IV PAIN Last administered on 01/28/19at 04:56; Start 01/26/19 at 08:45; Stop 01/28/19 at 09:12; Status DC Lisinopril (Prinivil) 2.5 mg DAILY PO Last administered on 01/28/19at 10:44; Start 01/27/19 at 09:00 Metoprolol Tartrate (Lopressor) 12.5 mg BID PO Last administered on 01/28/19at 10:44; Start 01/26/19 at 21:00 Amiodarone HCl (Cordarone) 400 mg DAILY PO Last administered on 01/28/19at 10:44; Start 01/27/19 at 09:00 Amiodarone HCl (Cordarone) 400 mg 1X ONCE PO Last administered on 01/26/19at 14:34; Start 01/26/19 at 14:15; Stop 01/26/19 at 14:16; Status DC Epinephrine HCl (EPINEPHrine SYRINGE) 1 mg STK-MED ONCE .ROUTE ; Start 01/23/19 at 14:47; Stop 01/26/19 at 14:48; Status DC Sodium Bicarbonate (Sodium Bicarb Adult 8.4% Syr) 100 meq STK-MED ONCE .ROUTE ; Start 01/23/19 at 14:47; Stop 01/26/19 at 14:48; Status DC Lorazepam (Ativan Inj) 1 mg PRN Q4HRS PRN IV ANXIETY / AGITATION Last administered on 01/29/19at 10:27; Start 01/28/19 at 09:15 Morphine Sulfate (Morphine Sulfate) 1 mg PRN Q2HR PRN IV PAIN Last administered on 01/29/19at 02:20; Start 01/28/19 at 09:15 Oxybutynin Chloride (Ditropan) 5 mg [id number] PO Last administered on 01/28/19at 10:44; Start 01/28/19 at 10:00 Tamsulosin HCl (Flomax) 0.4 mg QHS PO ; Start 01/28/19 at 21:00 Famotidine (Pepcid Vial) 20 mg BID IVP Last administered on 01/29/19at 09:12; Start 01/28/19 at 10:30 Labetalol HCl (Normodyne Iv Push) 10 mg PRN Q2HR PRN IVP HYPERTENSION; Start 01/29/19 at 13:00 Vitals/I & O Vital Sign - Last 24 Hours 01/28/19 01/28/19 01/28/19 01/28/19 16:00 16:52 18:52 20:00 Temp 99.6 99.6 Pulse 88 79 Resp 14 20 B/P (MAP) 110/56 (74) 163/92 (115) Pulse Ox 98 93 O2 Delivery Nasal Cannula Nasal Cannula Nasal Cannula Nasal Cannula O2 Flow Rate 2.0 2.0 2.0 2.0 01/28/19 01/28/19 01/28/1901/28/19 20:27 21:00 22:06 22:50 Temp 98.1 98.1 Pulse 79 82 Resp 22 B/P (MAP) 163/92 138/79 (98) Pulse Ox 93 93 93 O2 Delivery Nasal Cannula Nasal Cannula Nasal Cannula O2 Flow Rate 2.0 2.0 2.0 01/29/19 01/29/19 01/29/19 01/29/19 00:21 00:52 02:20 02:30 Temp 98.2 98.2 Pulse 80 Resp 18 22 B/P (MAP) 156/86 (109) Pulse Ox 93 93 93 93 O2 Delivery Nasal Cannula Nasal Cannula Nasal Cannula Nasal Cannula O2 Flow Rate 2.0 2.0 2.0 2.0 01/29/19 01/29/19 01/29/19 01/29/19 02:53 07:00 08:00 11:00 Temp 97.3 98.1 97.3 98.1 Pulse 87 84 Resp 14 B/P (MAP) 154/88 (110) 166/102 (123) Pulse Ox 93 92 95 O2 Delivery Nasal Cannula Nasal Cannula Nasal Cannula Nasal Cannula O2 Flow Rate 2.0 2.0 2.0 2.0 Intake and Output 01/28/19 01/28/19 01/29/19 14:59 22:59 06:59 Intake Total 100 ml 50 ml 100 ml Output Total 725 ml 330 ml Balance -625 ml -280 ml 100 ml KANNAN SO MD Jan 29, 2019 14:46
--- NOTE | 2019-01-29 15:31 | NUR ---
Nursing: Morning PO medications held. Patient NPO. Speech therapist said it is unsafe at this time to administer medications. Will re-assess tomorrow
[2019-01-29] MEDS: ATORVASTATIN CALCIUM 20 MG TABLET PO SCH (21:00)
[2019-01-29] MEDS: TAMSULOSIN 0.4 MG CAP.ER.24H. PO SCH (21:00)
--- NOTE | 2019-01-29 22:05 | NUR ---
Patient HR varies from 103-133. Intermittent SR to Afib. Paged Dr Aaron.
[2019-01-29] MEDS ORDERED: DIGOXIN IV 500 MCG/2 ML AMPUL. IV ONE (23:00)
[2019-01-30] MEDS: PIPERACILLIN/TAZOBACTAM 3.375 GM in IV NORMAL SALINE 50ML 50 ML IV SCH ×3 (02:23→17:06)
[2019-01-30 03:00] VITALS: BP 142/90
[2019-01-30] MEDS: MORPHINE SULFATE 2 MG/ML VIAL. IV PRN (03:31)
--- NOTE | 2019-01-30 03:34 | NUR ---
Patient Dc'd his CT. RN placed Petroleum gauze with 4X4 over Exit site. VS 142/90 P121, R 26, O2 95% on 2l NC. Paged Pulmonary test inspection engineer.
[2019-01-30 07:00] VITALS: BP 143/95
[2019-01-30] MEDS: ASPIRIN ENTERIC COATED 325 MG TABLET.DR. PO SCH ×2 (07:33→11:06)
[2019-01-30] MEDS: CLOPIDOGREL BISULFATE 75 MG TABLET PO SCH ×2 (07:33→11:06)
[2019-01-30] MEDS: AMIODARONE HCL 200 MG TABLET. PO SCH ×2 (07:34→11:06)
[2019-01-30] MEDS: OXYBUTYNIN CHLORIDE 5 MG TABLET PO SCH ×3 (07:34→20:47)
[2019-01-30] MEDS: METOPROLOL TART IMMED RELEASE 25 MG TABLET. PO SCH ×2 (07:34→11:07)
[2019-01-30] MEDS: LISINOPRIL 5 MG TABLET. PO SCH ×2 (07:35→11:07)
--- NOTE | 2019-01-30 08:01 | PDOC ---
Infectious Disease Note Subjective Subjective Says feeling alright Denies OLINDA/CP/F/C pulled out chest tube ROS ROS no n/v/d/sob Vital Sign Vital Signs Vital Signs Date Time Temp Pulse Resp B/P (MAP) Pulse Ox O2 Delivery O2 Flow Rate FiO2 01/30/19 07:00 98.1 130 22 143/95 (111) 98 Nasal Cannula 2.0 98.1 Physical Exam PHYSICAL EXAM GENERAL: Propped up in bed, awake, smiling HEENT: Oral cavity pink, moist NECK: Supple. LUNGS: Decreased at bases. Left chest tube out HEART: S1, S2. ABDOMEN: Minimally distended, nontender, soft + BS bowel sounds. He has a well-approximated incision in the left lower quadrant. GENITOURINARY: العلي EXTREMITIES: No clubbing or cyanosis. No gross edema. SKIN: Warm to touch without signs of rash. NEUROLOGICAL: Responding appropriately [facility] GRAM STAIN WHITE BLOOD CELLS Final None seen GRAM STAIN EPITHELIAL CELLS Final None seen GRAM STAIN RESULT 1 Final Comment Moderate number of gram positive cocci. GRAM STAIN RESULT 2 Final Comment Few gram negative rods. GRAM STAIN EVALUATION Final Comment This specimen is of good quality and is acceptable for routine bacterial culture. Performed at: - [facility] [id number], [place], [place] [id number] Comber Setter: CHICHO Berman MD, Phone: [phone] SPUTUM CULTURE-LC Final Final report SPUTUM CULT RES 1 Final Comment CONTINUED ON NEXT PAGE RUN DATE: 01/30/19 PAGE 2 RUN TIME: 0654 [facility] [address] [place] [address] Kendall Arroyo M.D., Applications Packager SPEC: [id number] PATIENT: TOMI DOZIER [id number] (Continued) Procedure Result ------ ------ SPUTUM CULT RES 1 Final (continued) Routine respiratory charisse Performed at: DA - [facility] [id number] [facility] [address], [place], [place] [id number] Comber Setter: CHICHO Berman MD, Phone: [phone] Objective Assessment Sepsis - POA 01/23 -Blood cults neg so far. No pressors- procal 0.4 01/24 Pneumonia -LLL infiltrate and interstitial opacities -mycoplasma - neg. 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 reactive - better Diffuse small bowel thickening on CT Plan Plan of Care Cont Zosyn for potential aspiration/? abdominal and CAP. Cont Doxy for atypicals and given Afib avoid quinolones/macrolides Off dapto & Zyvox legionella antigens and sputum cult,, neg F/u labs and cults Supportive care pt/ot MARY JANE DOBBINS MD Jan 30, 2019 08:01
--- NOTE | 2019-01-30 08:25 | RAD ---
Chest radiograph 01/30/2019 9:00 AM INDICATION: Respiratory failure COMPARISON: 01/29/2019 TECHNIQUE: Portable upright frontal view of the chest is provided. FINDINGS: The cardiomediastinal silhouette is similar in appearance. Small left pleural effusion with adjacent compressive atelectasis versus infiltrate. Moderate pulmonary vascular congestion appears similar. There may be increase in right suprahilar interstitial airspace disease. No pneumothorax. IMPRESSION: Similar aeration of the left lung with increase interstitial changes in the right suprahilar distribution. Consideration may be given for worsening congestive heart failure or pulmonary infiltrate. Electronically signed by: Renetta Rodriguez MD (01/30/2019 8:22 AM) [facility]
[2019-01-30] MEDS: FAMOTIDINE 20 MG/2 ML VIAL IVP SCH (09:02)
[2019-01-30] MEDS: DOXYCYCLINE HYCLATE 100 MG in IV DEXTROSE 5% 100ML 100 ML IV SCH (09:03)
[2019-01-30] MEDS: IV NORMAL SALINE 1000ML BAG 1,000 ML IV SCH ×2 (09:04→13:30)
[2019-01-30] MEDS: HEPARIN for SUB-Q USE 5,000 UNIT/ML VIAL. SQ SCH ×2 (09:18→21:01)
[2019-01-30 09:43] LABS: BASO # 0.1 x10^3/uL (0.0-0.2); BASO % 1 % (0-3); EOS # 0.2 x10^3/uL (0.0-0.7); EOS % 2 % (0-3); HEMATOCRIT 37.1 % (39.0-53.0); HEMOGLOBIN 12.9 g/dL (13.0-17.5); LYMPH # 1.1 x10^3/uL (1.0-4.8); LYMPH % 10 % (24-48); MEAN CORPUSCULAR HEMOGLOBIN 32 pg (25-35); MEAN CORPUSCULAR HGB CONC 35 g/dL (31-37); MEAN CORPUSCULAR VOLUME 93 fL (79-100); MONO # 1.7 x10^3/uL (0.0-1.1); MONO % 15 % (0-9); NEUT % 73 % (31-73); PLATELET COUNT 151 x10^3/uL (140-400); RED BLOOD COUNT 4.01 x10^6/uL (4.30-5.70); RED CELL DISTRIBUTION WIDTH 13.2 % (11.5-14.5)
[2019-01-30 10:08] LABS: CALCIUM 8.4 mg/dL (8.5-10.1); CREATININE 0.7 mg/dL (0.7-1.3); GFR 113.5; POTASSIUM 3.2 mmol/L (3.5-5.1)
[2019-01-30 11:00] VITALS: BP 150/88
--- NOTE | 2019-01-30 11:37 | NUR ---
SS following up with discharge planning. PT/OT recommended acute rehabilitation. Pt is currently requiring oxygen. SS met with pt and pt's family in room to discuss acute rehabilitation. Options discussed to include [facility]. Pt's spouse requested referral be phoned and faxed to [facility], ; fax [phone]. SS phoned and faxed referral. SS will await acceptance decision and insurance determination and will proceed accordingly. Pt's RN notified.
--- NOTE | 2019-01-30 11:51 | PDOC ---
PROGRESS NOTES Chief Complaint Chief Complaint CAD s/p stat PCI/LHC with stents to left circ (x 3 stents) EXTUBATED 01/27/19 s/p out of hospital cardiac arrest, V Fib with ROSC after 33 mins CPR and 5 defibrillations given Post intubation APICAL PTX s/p chest tube (01/24) Respi failure sec to above # 1 on IPPV Asthma SIRS sec to # 1, no infection REactive leukocytosis CRITCAL hypokalemia, 2,8 HYPERmagnesemia 2.7 MARIANNE post code MIld hypochloremia 101 History of Present Illness History of Present Illness extubated 01/27 after 5 days intubation for cardiac arrest s.p hypothermia prot ocol Passed swallow! dysphagia diet SNu in the works, dw SW and family and RN K 3.2 Anxiety - can have more ativan PLAN: SNu on the works PTOT SW - will need SNU FULL CODE chest tube to dc today likely inc ativan to 2 mgs Restart PO ,meds cont flomax, oxybutynin Vitals Vitals Vital Signs Date Time Temp Pulse Resp B/P (MAP) Pulse Ox O2 Delivery O2 Flow Rate FiO2 01/30/19 11:08 75 143/95 01/30/19 11:00 97.5 22 93 Nasal Cannula 2.0 97.5 Physical Exam Physical Exam GENERAL: Propped up in bed, awake, smiling HEENT: Oral cavity pink, moist NECK: Supple. LUNGS: Decreased at bases. Left chest tube out HEART: S1, S2. ABDOMEN: Minimally distended, nontender, soft + BS bowel sounds. He has a well-approximated incision in the left lower quadrant. GENITOURINARY: العلي EXTREMITIES: No clubbing or cyanosis. No gross edema. SKIN: Warm to touch without signs of rash. NEUROLOGICAL: Responding appropriately PIV General: mild distress Heart: Regular rate Lungs: Crackles Abdomen: Normal bowel sounds Extremities: No clubbing, No cyanosis, No edema, Normal pulses Skin: No breakdown, No significant lesion Labs LABS Laboratory Tests Test 01/30/19 09:10 01/30/19 09:20 White Blood Count 11.0 x10^3/uL (4.0-11.0) Red Blood Count 4.01 x10^6/uL (4.30-5.70) Hemoglobin 12.9 g/dL (13.0-17.5) Hematocrit 37.1 % (39.0-53.0) Mean Corpuscular Volume 93 fL (79-100) Mean Corpuscular Hemoglobin 32 pg (25-35) Mean Corpuscular Hemoglobin Concent 35 g/dL (31-37) Red Cell Distribution Width 13.2 % (11.5-14.5) Platelet Count 151 x10^3/uL (140-400) Neutrophils (%) (Auto) 73 % (31-73) Lymphocytes (%) (Auto) 10 % (24-48) Monocytes (%) (Auto) 15 % (0-9) Eosinophils (%) (Auto) 2 % (0-3) Basophils (%) (Auto) 1 % (0-3) Neutrophils # (Auto) 8.0 x10^3/uL (1.8-7.7) Lymphocytes # (Auto) 1.1 x10^3/uL (1.0-4.8) Monocytes # (Auto) 1.7 x10^3/uL (0.0-1.1) Eosinophils # (Auto) 0.2 x10^3/uL (0.0-0.7) Basophils # (Auto) 0.1 x10^3/uL (0.0-0.2) Sodium Level 140 mmol/L (136-145) Potassium Level 3.2 mmol/L (3.5-5.1) Chloride Level 105 mmol/L (98-107) Carbon Dioxide Level 23 mmol/L (21-32) Anion Gap 12 (6-14) Blood Urea Nitrogen 11 mg/dL (8-26) Creatinine 0.7 mg/dL (0.7-1.3) Estimated GFR (Cockcroft-Gault) 113.5 Glucose Level 84 mg/dL (70-99) Calcium Level 8.4 mg/dL (8.5-10.1) Review of Systems Review of Systems weak, no soa, no cp, no abd pain, some prostate sxs Assessment and Plan Assessmemt and Plan Problems Medical Problems: (1) Cardiorespiratory arrest Status: Acute (2) Elevated liver function tests Status: Acute (3) Elevated troponin Status: Acute (4) Hyperglycemia Status: Acute (5) Hypokalemia Status: Acute (6) Metabolic acidosis Status: Acute (7) Renal insufficiency Status: Acute (8) Ribs, multiple fractures Status: Acute (9) Severe sepsis Status: Acute (10) STEMI (ST elevation myocardial infarction) Status: Acute (11) Traumatic pneumothorax Status: Acute Comment Review of Relevant I have reviewed the following items yadi (where applicable) has been applied. Labs Laboratory Tests Test 01/29/19 05:22 01/29/19 05:23 01/30/19 09:10 01/30/19 09:20 White Blood Count 11.1 x10^3/uL (4.0-11.0) 11.0 x10^3/uL (4.0-11.0) Red Blood Count 3.60 x10^6/uL (4.30-5.70) 4.01 x10^6/uL (4.30-5.70) Hemoglobin 11.6 g/dL (13.0-17.5) 12.9 g/dL (13.0-17.5) Hematocrit 33.6 % (39.0-53.0) 37.1 % (39.0-53.0) Mean Corpuscular Volume 94 fL (79-100) 93 fL (79-100) Mean Corpuscular Hemoglobin 32 pg (25-35) 32 pg (25-35) Mean Corpuscular Hemoglobin Concent 34 g/dL (31-37) 35 g/dL (31-37) Red Cell Distribution Width 13.2 % (11.5-14.5) 13.2 % (11.5-14.5) Platelet Count 121 x10^3/uL (140-400) 151 x10^3/uL (140-400) Neutrophils (%) (Auto) 82 % (31-73) 73 % (31-73) Lymphocytes (%) (Auto) 7 % (24-48) 10 % (24-48) Monocytes (%) (Auto) 11 % (0-9) 15 % (0-9) Eosinophils (%) (Auto) 0 % (0-3) 2 % (0-3) Basophils (%) (Auto) 0 % (0-3) 1 % (0-3) Neutrophils # (Auto) 9.0 x10^3/uL (1.8-7.7) 8.0 x10^3/uL (1.8-7.7) Lymphocytes # (Auto) 0.8 x10^3/uL (1.0-4.8) 1.1 x10^3/uL (1.0-4.8) Monocytes # (Auto) 1.2 x10^3/uL (0.0-1.1) 1.7 x10^3/uL (0.0-1.1) Eosinophils # (Auto) 0.0 x10^3/uL (0.0-0.7) 0.2 x10^3/uL (0.0-0.7) Basophils # (Auto) 0.0 x10^3/uL (0.0-0.2) 0.1 x10^3/uL (0.0-0.2) Sodium Level 145 mmol/L (136-145) 140 mmol/L (136-145) Potassium Level 3.4 mmol/L (3.5-5.1) 3.2 mmol/L (3.5-5.1) Chloride Level 110 mmol/L (98-107) 105 mmol/L (98-107) Carbon Dioxide Level 21 mmol/L (21-32) 23 mmol/L (21-32) Anion Gap 14 (6-14) 12 (6-14) Blood Urea Nitrogen 17 mg/dL (8-26) 11 mg/dL (8-26) Creatinine 0.8 mg/dL (0.7-1.3) 0.7 mg/dL (0.7-1.3) Estimated GFR (Cockcroft-Gault) 97.3 113.5 Glucose Level 76 mg/dL (70-99) 84 mg/dL (70-99) Calcium Level 8.0 mg/dL (8.5-10.1) 8.4 mg/dL (8.5-10.1) Phosphorus Level 3.3 mg/dL (2.6-4.7) Albumin 2.5 g/dL (3.4-5.0) Laboratory Tests Test 01/30/19 09:10 01/30/19 09:20 White Blood Count 11.0 x10^3/uL (4.0-11.0) Red Blood Count 4.01 x10^6/uL (4.30-5.70) Hemoglobin 12.9 g/dL (13.0-17.5) Hematocrit 37.1 % (39.0-53.0) Mean Corpuscular Volume 93 fL (79-100) Mean Corpuscular Hemoglobin 32 pg (25-35) Mean Corpuscular Hemoglobin Concent 35 g/dL (31-37) Red Cell Distribution Width 13.2 % (11.5-14.5) Platelet Count 151 x10^3/uL (140-400) Neutrophils (%) (Auto) 73 % (31-73) Lymphocytes (%) (Auto) 10 % (24-48) Monocytes (%) (Auto) 15 % (0-9) Eosinophils (%) (Auto) 2 % (0-3) Basophils (%) (Auto) 1 % (0-3) Neutrophils # (Auto) 8.0 x10^3/uL (1.8-7.7) Lymphocytes # (Auto) 1.1 x10^3/uL (1.0-4.8) Monocytes # (Auto) 1.7 x10^3/uL (0.0-1.1) Eosinophils # (Auto) 0.2 x10^3/uL (0.0-0.7) Basophils # (Auto) 0.1 x10^3/uL (0.0-0.2) Sodium Level 140 mmol/L (136-145) Potassium Level 3.2 mmol/L (3.5-5.1) Chloride Level 105 mmol/L (98-107) Carbon Dioxide Level 23 mmol/L (21-32) Anion Gap 12 (6-14) Blood Urea Nitrogen 11 mg/dL (8-26) Creatinine 0.7 mg/dL (0.7-1.3) Estimated GFR (Cockcroft-Gault) 113.5 Glucose Level 84 mg/dL (70-99) Calcium Level 8.4 mg/dL (8.5-10.1) Microbiology 01/24/19 - Final, Complete 01/24/19 - Final, Complete 01/24/19 - Final, Complete 01/24/19 - Final, Complete 01/24/19 Gram Stain Evaluation - Final, Complete 01/24/19 Sputum Culture - Final, Complete 01/24/19 Sputum Result 1 - Final, Complete 01/23/19 Blood Culture - Final, Complete NO GROWTH AFTER 5 DAYS Medications Current Medications Sodium Chloride 1,000 ml @ 1,000 mls/hr Q1H IV Last administered on 01/23/19at 17:23; Start 01/23/19 at 15:13; Stop 01/23/19 at 16:12; Status DC Sodium Bicarbonate (Sodium Bicarb Adult 8.4% Syr) 100 meq 1X ONCE IV Last administered on 01/23/19at 17:23; Start 01/23/19 at 15:30; Stop 01/23/19 at 15:59; Status DC Midazolam HCl (Versed) 5 mg STK-MED ONCE .ROUTE ; Start 01/23/19 at 15:25; Stop 01/23/19 at 15:25; Status DC Propofol 50 ml @ As Directed STK-MED ONCE IV ; Start 01/23/19 at 15:25; Stop 01/23/19 at 15:25; Status DC Calcium Gluconate (Calcium Gluconate) 1,000 mg 1X ONCE IVP Last administered on 01/23/19at 16:12; Start 01/23/19 at 16:00; Stop 01/23/19 at 16:01; Status DC Dextrose (Dextrose 50%-Water Syringe) 25 gm 1X ONCE IV ; Start 01/23/19 at 15:45; Stop 01/23/19 at 15:53; Status DC Insulin Human Regular (HumuLIN R VIAL) 10 unit 1X ONCE IV ; Start 01/23/19 at 15:45; Stop 01/23/19 at 15:53; Status DC Iohexol (Omnipaque 350 Mg/ml) 90 ml 1X ONCE IV Last administered on 01/23/19at 16:08; Start 01/23/19 at 15:45; Stop 01/23/19 at 16:00; Status DC Amiodarone HCl 900 mg/Dextrose 518 ml @ 0 mls/hr CONT PRN IV SEE I/O RECORD Last administered on 01/23/19at 17:06; Start 01/23/19 at 16:00; Stop 01/23/19 at 17:06; Status DC Piperacillin Sod/ Tazobactam Sod 3.375 gm/Sodium Chloride 50 ml @ 100 mls/hr 1X ONCE IV Last administered on 01/23/19at 22:19; Start 01/23/19 at 16:00; Stop 01/23/19 at 16:29; Status DC Vancomycin HCl 250 ml @ 250 mls/hr 1X ONCE IV ; Start 01/23/19 at 16:00; Stop 01/23/19 at 16:24; Status DC Fentanyl Citrate (Fentanyl 2ml Vial) 100 mcg 1X ONCE IV ; Start 01/23/19 at 16:15; Stop 01/23/19 at 16:24; Status DC Midazolam HCl (Versed) 2 mg 1X ONCE IV ; Start 01/23/19 at 16:15; Stop 01/23/19 at 16:24; Status DC Magnesium Sulfate/ Dextrose 100 ml @ 100 mls/hr 1X ONCE IV ; Start 01/23/19 at 16:15; Stop 01/23/19 at 17:14; Status DC Buspirone HCl (Buspar) 30 mg Q8H NG Last administered on 01/25/19at 08:47; Start 01/23/19 at 17:00; Stop 01/25/19 at 09:01; Status DC Acetaminophen (Tylenol) 650 mg Q4H NG Last administered on 01/25/19at 11:11; St art 01/23/19 at 16:15; Stop 01/26/19 at 01:00; Status DC Artificial Tears (Artificial Tears) 1 drop Q6HRS OU Last administered on 01/25/19at 23:53; Start 01/23/19 at 18:00; Stop 01/26/19 at 01:00; Status DC Artificial Tears (Artificial Tears) 1 drop PRN Q15MIN PRN OU DRY EYE; Start 01/23/19 at 16:15; Stop 01/26/19 at 01:00; Status DC Heparin Sodium (Porcine) (Heparin Sodium) 5,000 unit BID SQ ; Start 01/23/19 at 21:00; Stop 01/23/19 at 16:53; Status DC Pantoprazole Sodium (PROTONIX VIAL for IV PUSH) 40 mg DAILY IVP ; Start 01/24/19 at 09:00; Stop 01/23/19 at 20:27; Status DC Fentanyl Citrate 30 ml @ 0 mls/hr CONT PRN IV PER PROTOCOL.; Start 01/23/19 at 16:15; Stop 01/23/19 at 18:01; Status DC Propofol 100 ml @ 0 mls/hr CONT PRN IV PER PROTOCOL.; Start 01/23/19 at 16:15; Stop 01/23/19 at 20:27; Status DC Midazolam HCl 100 ml @ 0 mls/hr CONT PRN IV PER PROTOCOL. Last administered on 01/23/19at 16:50; Start 01/23/19 at 16:15; Stop 01/23/19 at 20:26; Status DC Vecuronium [place] (Norcuron Bolus) 7 mg PRN Q1HR PRN IV SHIVERING; Start 01/23/19 at 16:15; Stop 01/23/19 at 20:28; Status DC Pantoprazole Sodium (PROTONIX VIAL for IV PUSH) 40 mg DAILYAC IVP ; Start 01/24/19 at 07:30; Stop 01/23/19 at 16:25; Status DC Pantoprazole Sodium (PROTONIX VIAL for IV PUSH) 40 mg 1X ONCE IVP Last administered on 01/23/19at 23:43; Start 01/23/19 at 17:00; Stop 01/23/19 at 17:01; Status DC Enoxaparin Sodium (Lovenox 40mg Syringe) 40 mg Q24H SQ ; Start 01/23/19 at 21:00; Stop 01/23/19 at 23:59; Status DC Sodium Chloride 1,000 ml @ 150 mls/hr Q6H40M IV Last administered on 01/24/19at 04:43; Start 01/23/19 at 16:11; Stop 01/24/19 at 11:40; Status DC Potassium Chloride/Water 100 ml @ 100 mls/hr Q1H IV Last administered on 01/23/19at 19:06; Start 01/23/19 at 17:00; Stop 01/23/19 at 20:59; Status DC Potassium Chloride/Water 100 ml @ 100 mls/hr Q1H IV ; Start 01/23/19 at 22:00; Stop 01/23/19 at 23:59; Status DC Vancomycin HCl 1.75 gm/Sodium Chloride 500 ml @ 250 mls/hr 1X ONCE IV Last administered on 01/23/19at 23:42; Start 01/23/19 at 18:00; Stop 01/23/19 at 19:59; Status DC Aspirin (Aspirin Rectal Supp) 300 mg 1X ONCE IN Last administered on 01/23/19at 20:27; Start 01/23/19 at 17:00; Stop 01/23/19 at 17:01; Status DC Lidocaine HCl (Lidocaine 1% 20ml Vial) 20 ml STK-MED ONCE .ROUTE ; Start 01/23/19 at 16:37; Stop 01/23/19 at 16:37; Status DC Heparin Sodium/ Sodium Chloride 1,000 ml @ As Directed STK-MED ONCE .ROUTE ; Start 01/23/19 at 16:37; Stop 01/23/19 at 16:38; Status DC Heparin Sodium/ Dextrose 500 ml @ 0 mls/hr CONT PRN IV SEE I/O RECORD; Start 01/23/19 at 17:00; Stop 01/23/19 at 23:27; Status DC Midazolam HCl (Versed) 5 mg STK-MED ONCE .ROUTE ; Start 01/23/19 at 17:00; Stop 01/23/19 at 17:00; Status DC Sodium Chloride 1,000 ml @ 1,000 mls/hr 1X ONCE IV Last administered on 01/23/19at 18:58; Start 01/23/19 at 17:30; Stop 01/23/19 at 18:29; Status DC Propofol 50 ml @ 2.1 mls/hr 1X STAT IV Last administered on 01/23/19at 18:51; Start 01/23/19 at 17:17; Stop 01/23/19 at 20:27; Status DC Midazolam HCl (Versed) 5 mg 1X ONCE IV Last administered on 01/23/19at 18:18; Start 01/23/19 at 17:30; Stop 01/23/19 at 17:31; Status DC Fentanyl Citrate 30 ml @ 0 mls/hr CONT PRN PRN IV PER PROTOCOL; Start 01/23/19 at 17:45; Status Cancel Naloxone HCl (Narcan) 0.4 mg PRN Q2MIN PRN IV SEE INSTRUCTIONS; Start 01/23/19 at 17:45 Sodium Chloride 1,000 ml @ 25 mls/hr Q24H IV Last administered on 01/26/19at 15:11; Start 01/23/19 at 17:33 Midazolam HCl (Versed) 5 mg 1X ONCE IV Last administered on 01/23/19at 19:02; Start 01/23/19 at 18:15; Stop 01/23/19 at 18:16; Status DC Amiodarone HCl (Cordarone) 150 mg STK-MED ONCE .ROUTE ; Start 01/23/19 at 18:11; Stop 01/23/19 at 18:12; Status DC Iodixanol (Visipaque 320) 100 ml STK-MED ONCE .ROUTE ; Start 01/23/19 at 18:19; Stop 01/23/19 at 18:19; Status DC Bivalirudin (Angiomax) 250 mg STK-MED ONCE IV ; Start 01/23/19 at 18:20; Stop 01/23/19 at 18:20; Status DC Nitroglycerin (Nitroglycerin) 200 mcg 1X ONCE IART Last administered on 01/23/19at 19:10; Start 01/23/19 at 18:45; Stop 01/23/19 at 18:56; Status DC Heparin Sodium/ Sodium Chloride (HEPARIN for ARTERIAL LINE FLUSH) 1,000 unit 1X ONCE IART Last administered on 01/23/19 19:10; Start 01/23/19 at 18:45; Stop 01/23/19 at 18:56; Status DC Heparin Sodium/ Sodium Chloride (HEPARIN for ARTERIAL LINE FLUSH) 1,000 unit 1X ONCE IART Last administered on 01/23/19 19:10; Start 01/23/19 at 18:45; Stop 01/23/19 at 18:56; Status DC Iodixanol (Visipaque 320) 100 ml 1X ONCE IART Last administered on 01/23/19 19:10; Start 01/23/19 at 18:45; Stop 01/23/19 at 18:56; Status DC Bivalirudin (Angiomax) 250 mg 1X ONCE IV Last administered on 01/23/19at 19:10; Start 01/23/19 at 18:45; Stop 01/23/19 at 18:56; Status DC Lidocaine HCl (Lidocaine 1% 20ml Vial) 10 ml 1X ONCE INJ Last administered on 01/23/19 19:10; Start 01/23/19 at 18:45; Stop 01/23/19 at 18:56; Status DC Amiodarone HCl 150 mg/Dextrose 103 ml @ 0 mls/hr 1X ONCE IV Last administered on 01/23/19at 19:10; Start 01/23/19 at 19:00; Stop 01/23/19 at 19:01; Status DC Info (CONTRAST GIVEN -- Rx MONITORING) 1 each PRN DAILY PRN MC SEE COMMENTS; Start 01/23/19 at 19:00; Stop 01/25/19 at 18:59; Status DC Heparin Sodium/ Sodium Chloride 500 ml @ As Directed STK-MED ONCE .ROUTE ; Start 01/23/19 at 19:02; Stop 01/23/19 at 19:03; Status DC Sodium Chloride (Normal Saline Flush) 3 ml QSHIFT PRN IV AFTER MEDS AND BLOOD DRAWS; Start 01/23/19 at 19:30 Sodium Chloride 1,000 ml @ 75 mls/hr [id number] IV Last administered on 01/23/19at 20:27; Start 01/23/19 at 19:17; Stop 01/24/19 at 03:16; Status DC Aspirin (Ecotrin) 325 mg DAILYWBKFT PO Last administered on 01/30/19at 11:08; Start 01/24/19 at 08:00 Clopidogrel Bisulfate (Plavix) 75 mg DAILYWBKFT PO Last administered on 01/30/19at 11:08; Start 01/24/19 at 08:00 Acetaminophen (Tylenol) 650 mg PRN Q6HRS PRN PO MILD PAIN / TEMP Last administered on 01/27/19at 11:01; Start 01/23/19 at 19:30 Fentanyl Citrate (Fentanyl 2ml Vial) 50 mcg PRN Q1HR PRN IV MODERATE OR SEVERE PAIN; Start 01/23/19 at 19:30; Stop 01/26/19 at 00:59; Status DC Nitroglycerin (Nitrostat) 0.4 mg PRN Q5MIN PRN SL CHEST PAIN; Start 01/23/19 at 19:30 Amiodarone HCl 150 mg/Dextrose 103 ml @ 600 mls/hr 1X PRN PRN IV FOR VENTRICULAR TACHYCARDIA; Start 01/23/19 at 19:30 Lidocaine HCl (Lidocaine HCl 2% Abboject) 100 mg 1X PRN PRN IV FOR VENTRICULAR TACHYCARDIA; Start 01/23/19 at 19:30 Atropine Sulfate (ATROPINE 0.5mg SYRINGE) 0.5 mg PRN 1X PRN IV BRADYCARDIA; Start 01/23/19 at 19:30 Fentanyl Citrate (Fentanyl 2ml Vial) 100 mcg 1X ONCE IV Last administered on 01/23/19at 20:27; Start 01/23/19 at 19:45; Stop 01/23/19 at 20:25; Status DC Midazolam HCl (Versed) 2 mg 1X ONCE IV ; Start 01/23/19 at 19:45; Stop 01/23/19 at 20:25; Status DC Magnesium Sulfate/ Dextrose 100 ml @ 100 mls/hr 1X ONCE IV Last administered on 01/23/19at 20:46; Start 01/23/19 at 19:45; Stop 01/23/19 at 20:44; Status DC Heparin Sodium (Porcine) (Heparin Sodium) 5,000 unit BID SQ Last administered on 01/30/19at 09:19; Start 01/23/19 at 21:00 Pantoprazole Sodium (PROTONIX VIAL for IV PUSH) 40 mg DAILY IVP Last admi nistered on 01/27/19at 08:06; Start 01/24/19 at 09:00; Stop 01/28/19 at 10:09; Status DC Fentanyl Citrate 30 ml @ 0 mls/hr CONT PRN IV PER PROTOCOL. Last administered on 01/25/19at 16:54; Start 01/23/19 at 19:45; Stop 01/26/19 at 01:00; Status DC Propofol 100 ml @ 0 mls/hr CONT PRN IV PER PROTOCOL.; Start 01/23/19 at 19:45; Stop 01/26/19 at 01:00; Status DC Midazolam HCl 100 ml @ 0 mls/hr CONT PRN IV PER PROTOCOL. Last administered on 01/25/19at 23:11; Start 01/23/19 at 19:45; Stop 01/26/19 at 01:00; Status DC Vecuronium [place] (Norcuron Bolus) 7 mg PRN Q1HR PRN IV SHIVERING Last administered on 01/24/19at 21:19; Start 01/23/19 at 19:45; Stop 01/28/19 at 09:12; Status DC Norepinephrine Bitartrate 250 ml @ 13.608 mls/ hr CONT PRN IV SEE I/O RECORD; Start 01/23/19 at 20:45; Stop 01/28/19 at 09:12; Status DC Sodium Chloride 500 ml @ 500 mls/hr 1X ONCE IV Last administered on 01/23/19at 20:57; Start 01/23/19 at 20:45; Stop 01/23/19 at 21:44; Status DC Daptomycin 440 mg/ Sodium Chloride 50 ml @ 100 mls/hr Q24H IV Last administered on 01/25/19at 23:11; Start 01/23/19 at 23:00; Stop 01/26/19 at 07:52; Status DC Linezolid/Dextrose 300 ml @ 300 mls/hr Q12HR IV Last administered on 01/25/19at 21:03; Start 01/24/19 at 09:00; Stop 01/26/19 at 07:52; Status DC Doxycycline Hyclate 100 mg/ Dextrose 100 ml @ 50 mls/hr Q12HR IV Last administered on 01/30/19at 09:19; Start 01/24/19 at 09:00 Doxycycline Hyclate 100 mg/ Dextrose 100 ml @ 50 mls/hr 1X ONCE IV Last administered on 01/23/19at 23:42; Start 01/23/19 at 23:30; Stop 01/24/19 at 01:29; Status DC Linezolid/Dextrose 300 ml @ 300 mls/hr ONCE ONCE IV Last administered on 01/23/19at 23:42; Start 01/23/19 at 23:00; Stop 01/23/19 at 23:59; Status DC Insulin Human Regular 150 unit/ Sodium Chloride 151.5 ml @ 0 mls/hr CONT PRN IV SEE I/O RECORD; Start 01/23/19 at 23:15; Stop 01/26/19 at 08:41; Status DC Magnesium Sulfate 50 ml @ 25 mls/hr 1X ONCE IV Last administered on 01/24/19at 08:29; Start 01/24/19 at 06:45; Stop 01/24/19 at 08:44; Status DC Piperacillin Sod/ Tazobactam Sod 3.375 gm/Sodium Chloride 50 ml @ 100 mls/hr Q6HRS IV Last administered on 01/30/19at 11:29; Start 01/24/19 at 08:00 Atorvastatin Calcium (Lipitor) 20 mg QHS PO Last administered on 01/26/19at 21:10; Start 01/24/19 at 21:00 Sodium Chloride 1,000 ml @ 100 mls/hr Q10H IV Last administered on 01/30/19at 09:19; Start 01/24/19 at 11:45 Amiodarone HCl 900 mg/Dextrose 518 ml @ 17 mls/hr 30H29M IV ; Start 01/24/19 at 15:00; Status Cancel Magnesium Sulfate/ Dextrose 100 ml @ 100 mls/hr 1X ONCE IV Last administered on 01/24/19at 13:52; Start 01/24/19 at 13:30; Stop 01/24/19 at 14:29; Status DC Lidocaine/Sodium Bicarbonate (Buffered Lidocaine 1%) 3 ml STK-MED ONCE .ROUTE ; Start 01/24/19 at 15:03; Stop 01/24/19 at 15:04; Status DC Amiodarone HCl 900 mg/Dextrose 518 ml @ 33 mls/hr CONT PRN IV SEE I/O RECORD Last administered on 01/24/19at 16:09; Start 01/24/19 at 16:30; Stop 01/24/19 at 16:30; Status DC Potassium Chloride/Water 100 ml @ 100 mls/hr Q1H IV ; Start 01/25/19 at 09:00; Stop 01/25/19 at 10:06; Status DC Amiodarone HCl 450 mg/Dextrose 259 ml @ 17.267 mls/ hr CONT PRN IV SEE I/O RECORD Last administered on 01/26/19at 04:56; Start 01/25/19 at 13:15; Stop 01/26/19 at 13:47; Status DC Fentanyl Citrate 30 ml @ 0 mls/hr CONT PRN IV SEE PROTOCOL Last administered on 01/26/19at 18:46; Start 01/26/19 at 01:00; Stop 01/28/19 at 09:12; Status DC Propofol 100 ml @ 0 mls/hr CONT PRN IV SEE PROTOCOL; Start 01/26/19 at 01:00; Stop 01/28/19 at 09:12; Status DC Midazolam HCl 100 ml @ 0 mls/hr CONT PRN IV SEE PROTOCOL Last administered on 01/27/19at 02:20; Start 01/26/19 at 01:00; Stop 01/28/19 at 09:12; Status DC Lorazepam (Ativan Inj) 2 mg PRN Q4HRS PRN IV ANXIETY / AGITATION Last administered on 01/28/19at 03:56; Start 01/26/19 at 08:45; Stop 01/28/19 at 09:12; Status DC Morphine Sulfate (Morphine Sulfate) 2 mg PRN Q2HR PRN IV PAIN Last administered on 01/28/19 04:56; Start 01/26/19 at 08:45; Stop 01/28/19 at 09:12; Status DC Lisinopril (Prinivil) 2.5 mg DAILY PO Last administered on 01/30/19at 11:08; Start 01/27/19 at 09:00 Metoprolol Tartrate (Lopressor) 12.5 mg BID PO Last administered on 01/30/19 11:08; Start 01/26/19 at 21:00 Amiodarone HCl (Cordarone) 400 mg DAILY PO Last administered on 01/30/19 11:08; Start 01/27/19 at 09:00 Amiodarone HCl (Cordarone) 400 mg 1X ONCE PO Last administered on 01/26/19 14:34; Start 01/26/19 at 14:15; Stop 01/26/19 at 14:16; Status DC Epinephrine HCl (EPINEPHrine SYRINGE) 1 mg STK-MED ONCE .ROUTE ; Start 01/23/19 at 14:47; Stop 01/26/19 at 14:48; Status DC Sodium Bicarbonate (Sodium Bicarb Adult 8.4% Syr) 100 meq STK-MED ONCE .ROUTE ; Start 01/23/19 at 14:47; Stop 01/26/19 at 14:48; Status DC Lorazepam (Ativan Inj) 1 mg PRN Q4HRS PRN IV ANXIETY / AGITATION Last administered on 01/30/19at 01:24; Start 01/28/19 at 09:15 Morphine Sulfate (Morphine Sulfate) 1 mg PRN Q2HR PRN IV PAIN Last administered on 01/30/19at 03:31; Start 01/28/19 at 09:15 Oxybutynin Chloride (Ditropan) 5 mg [id number] PO Last administered on 01/28/19at 10:44; Start 01/28/19 at 10:00 Tamsulosin HCl (Flomax) 0.4 mg QHS PO ; Start 01/28/19 at 21:00 Famotidine (Pepcid Vial) 20 mg BID IVP Last administered on 01/30/19 09:19; Start 01/28/19 at 10:30 Labetalol HCl (Normodyne Iv Push) 10 mg PRN Q2HR PRN IVP HYPERTENSION; Start 01/29/19 at 13:00 Digoxin (Lanoxin) 0.25 mcg 1X ONCE IV Last administered on 01/29/19at 22:55; Start 01/29/19 at 23:00; Stop 01/29/19 at 23:01; Status DC Vitals/I & O Vital Sign - Last 24 Hours 01/29/19 01/29/19 01/29/19 01/29/19 15:00 19:20 20:00 22:45 Temp 98.1 98.4 98.1 98.1 98.4 98.1 Pulse 79 106 76 Resp 16 20 22 B/P (MAP) 149/82 (104) 138/96 (110) 141/81 (101) Pulse Ox 97 93 94 O2 Delivery Nasal Cannula Nasal Cannula Nasal Cannula Nasal Cannula O2 Flow Rate 2.0 2.0 2.0 2.0 01/29/19 01/29/19 01/29/19 01/30/19 22:55 23:09 23:54 01:19 Pulse 75 84 Resp 18 B/P (MAP) 141/81 153/86 (108) Pulse Ox 94 94 O2 Delivery Nasal Cannula Nasal Cannula O2 Flow Rate 2.0 2.0 01/30/19 01/30/19 01/30/19 01/30/19 03:00 03:31 05:36 07:00 Temp 98.3 98.1 98.3 98.1 Pulse 111 130 Resp 22 26 18 22 B/P (MAP) 142/90 (107) 143/95 (111) Pulse Ox 95 94 94 98 O2 Delivery Nasal Cannula Nasal Cannula Nasal Cannula Nasal Cannula O2 Flow Rate 2.0 2.0 2.0 2.0 01/30/19 01/30/19 01/30/19 01/30/19 08:00 11:00 11:08 11:08 Temp 97.5 97.5 Pulse 72 130 75 Resp 22 B/P (MAP) 150/88 (108) 143/95 150/88 Pulse Ox 93 O2 Delivery Nasal Cannula Nasal Cannula O2 Flow Rate 2.0 2.0 01/30/19 11:08 Pulse 75 B/P (MAP) 143/95 Intake and Output 01/29/19 01/29/19 01/30/19 15:00 23:00 07:00 Intake Total 800 ml Output Total 200 ml Balance 600 ml TERMULO,DERECK Y MD Jan 30, 2019 11:51
--- NOTE | 2019-01-30 12:29 | PDOC ---
PULMONARY PROGRESS NOTES Subjective NO NEW COMPLAINTS EXTUBATED 01/27 FOLLOW COMMANDS NOT MORE SOA PT REMOVED CT LAST NIGHT Vitals Vital Signs Date Time Temp Pulse Resp B/P (MAP) Pulse Ox O2 Delivery O2 Flow Rate FiO2 01/30/19 11:08 75 143/95 01/30/19 11:00 97.5 22 93 Nasal Cannula 2.0 97.5 ROS: No Nausea, No Chest Pain, No Abdominal Pain, No Increase Cough General: Alert HEENT: Other (NO JVD) Lungs: Other (decrease base) Cardiovascular: S1, S2 Abdomen: Soft Neuro Exam: Alert Extremities: Other (EDEMA) Skin: Warm Labs Laboratory Tests Test 01/29/19 05:22 01/29/19 05:23 01/30/19 09:10 01/30/19 09:20 White Blood Count 11.1 x10^3/uL (4.0-11.0) 11.0 x10^3/uL (4.0-11.0) Red Blood Count 3.60 x10^6/uL (4.30-5.70) 4.01 x10^6/uL (4.30-5.70) Hemoglobin 11.6 g/dL (13.0-17.5) 12.9 g/dL (13.0-17.5) Hematocrit 33.6 % (39.0-53.0) 37.1 % (39.0-53.0) Mean Corpuscular Volume 94 fL (79-100) 93 fL (79-100) Mean Corpuscular Hemoglobin 32 pg (25-35) 32 pg (25-35) Mean Corpuscular Hemoglobin Concent 34 g/dL (31-37) 35 g/dL (31-37) Red Cell Distribution Width 13.2 % (11.5-14.5) 13.2 % (11.5-14.5) Platelet Count 121 x10^3/uL (140-400) 151 x10^3/uL (140-400) Neutrophils (%) (Auto) 82 % (31-73) 73 % (31-73) Lymphocytes (%) (Auto) 7 % (24-48) 10 % (24-48) Monocytes (%) (Auto) 11 % (0-9) 15 % (0-9) Eosinophils (%) (Auto) 0 % (0-3) 2 % (0-3) Basophils (%) (Auto) 0 % (0-3) 1 % (0-3) Neutrophils # (Auto) 9.0 x10^3/uL (1.8-7.7) 8.0 x10^3/uL (1.8-7.7) Lymphocytes # (Auto) 0.8 x10^3/uL (1.0-4.8) 1.1 x10^3/uL (1.0-4.8) Monocytes # (Auto) 1.2 x10^3/uL (0.0-1.1) 1.7 x10^3/uL (0.0-1.1) Eosinophils # (Auto) 0.0 x10^3/uL (0.0-0.7) 0.2 x10^3/uL (0.0-0.7) Basophils # (Auto) 0.0 x10^3/uL (0.0-0.2) 0.1 x10^3/uL (0.0-0.2) Sodium Level 145 mmol/L (136-145) 140 mmol/L (136-145) Potassium Level 3.4 mmol/L (3.5-5.1) 3.2 mmol/L (3.5-5.1) Chloride Level 110 mmol/L (98-107) 105 mmol/L (98-107) Carbon Dioxide Level 21 mmol/L (21-32) 23 mmol/L (21-32) Anion Gap 14 (6-14) 12 (6-14) Blood Urea Nitrogen 17 mg/dL (8-26) 11 mg/dL (8-26) Creatinine 0.8 mg/dL (0.7-1.3) 0.7 mg/dL (0.7-1.3) Estimated GFR (Cockcroft-Gault) 97.3 113.5 Glucose Level 76 mg/dL (70-99) 84 mg/dL (70-99) Calcium Level 8.0 mg/dL (8.5-10.1) 8.4 mg/dL (8.5-10.1) Phosphorus Level 3.3 mg/dL (2.6-4.7) Albumin 2.5 g/dL (3.4-5.0) Laboratory Tests Test 01/30/19 09:10 01/30/19 09:20 White Blood Count 11.0 x10^3/uL (4.0-11.0) Red Blood Count 4.01 x10^6/uL (4.30-5.70) Hemoglobin 12.9 g/dL (13.0-17.5) Hematocrit 37.1 % (39.0-53.0) Mean Corpuscular Volume 93 fL (79-100) Mean Corpuscular Hemoglobin 32 pg (25-35) Mean Corpuscular Hemoglobin Concent 35 g/dL (31-37) Red Cell Distribution Width 13.2 % (11.5-14.5) Platelet Count 151 x10^3/uL (140-400) Neutrophils (%) (Auto) 73 % (31-73) Lymphocytes (%) (Auto) 10 % (24-48) Monocytes (%) (Auto) 15 % (0-9) Eosinophils (%) (Auto) 2 % (0-3) Basophils (%) (Auto) 1 % (0-3) Neutrophils # (Auto) 8.0 x10^3/uL (1.8-7.7) Lymphocytes # (Auto) 1.1 x10^3/uL (1.0-4.8) Monocytes # (Auto) 1.7 x10^3/uL (0.0-1.1) Eosinophils # (Auto) 0.2 x10^3/uL (0.0-0.7) Basophils # (Auto) 0.1 x10^3/uL (0.0-0.2) Sodium Level 140 mmol/L (136-145) Potassium Level 3.2 mmol/L (3.5-5.1) Chloride Level 105 mmol/L (98-107) Carbon Dioxide Level 23 mmol/L (21-32) Anion Gap 12 (6-14) Blood Urea Nitrogen 11 mg/dL (8-26) Creatinine 0.7 mg/dL (0.7-1.3) Estimated GFR (Cockcroft-Gault) 113.5 Glucose Level 84 mg/dL (70-99) Calcium Level 8.4 mg/dL (8.5-10.1) Comments cxr 01/30 Similar aeration of the left lung with increase interstitial changes in the right suprahilar distribution. Consideration may be given for worsening congestive heart failure or pulmonary infiltrate. Impression . 1. Acute respiratory failure secondary to yzj-hz-mqlinjyx cardiopulmonary arrest. 2. Dmr-jd-mvvkxldc cardiopulmonary arrest. 3. Ventricular fibrillation. 4. Coronary artery disease. 5. Ischemic cardiomyopathy with ejection fraction of 30-35%. 6. Status post stent placement to the left circumflex. 7. Eukcv-ey-odegqmn diastolic/ systolic heart failure. 8. Possible pneumonia/aspiration. 9. Left traumatic pneumothorax.S/P CHEST TUBE , REMOVED BY PT 01/29. NO PTX 10. Elevated liver chemistries. 11. Acute renal failure. 12. Hypothyroidism. 13. Tobacco dependent. 14. Positive drug screen. Plan . EXTUBATED 01/27 CXR NO PTX BUT CHF/ LEFT EFFUSION D/W EXTRA LASIX ( EF 30%) D/W RN ANTIBX PER ID FOLLOW CARD INPUT JUDITH SCHAFER MD Jan 30, 2019 12:29
[2019-01-30] MEDS ORDERED: POTASSIUM CHLORIDE 20 MEQ TABLET.ER. PO ONE (12:30)
[2019-01-30] MEDS ORDERED: FUROSEMIDE 40 MG/4 ML VIAL. IVP ONE (13:00)
[2019-01-30 15:00] VITALS: BP 128/74
--- NOTE | 2019-01-30 15:17 | PDOC ---
CARDIO Progress Notes Date and Time Date of Service 01/30/19 Time of Evaluation 1510 Subjective Subjective: No Chest Pain, No shortness of breath Vitals Vitals Vital Signs Date Time Temp Pulse Resp B/P (MAP) Pulse Ox O2 Delivery O2 Flow Rate FiO2 01/30/19 11:08 75 143/95 01/30/19 11:00 97.5 22 93 Nasal Cannula 2.0 97.5 Weight Weight [ ] Input and Output Intake and Output Intake and Output 01/30/19 06:59 Intake Total 800 ml Output Total 200 ml Balance 600 ml Blood Product IV Normal Saline Flush 800 ml Output Urine Total 200 ml # Voids 12 # Bowel Movements 3 Laboratory Labs Laboratory Tests Test 01/30/19 09:10 01/30/19 09:20 White Blood Count 11.0 x10^3/uL (4.0-11.0) Red Blood Count 4.01 x10^6/uL (4.30-5.70) Hemoglobin 12.9 g/dL (13.0-17.5) Hematocrit 37.1 % (39.0-53.0) Mean Corpuscular Volume 93 fL (79-100) Mean Corpuscular Hemoglobin 32 pg (25-35) Mean Corpuscular Hemoglobin Concent 35 g/dL (31-37) Red Cell Distribution Width 13.2 % (11.5-14.5) Platelet Count 151 x10^3/uL (140-400) Neutrophils (%) (Auto) 73 % (31-73) Lymphocytes (%) (Auto) 10 % (24-48) Monocytes (%) (Auto) 15 % (0-9) Eosinophils (%) (Auto) 2 % (0-3) Basophils (%) (Auto) 1 % (0-3) Neutrophils # (Auto) 8.0 x10^3/uL (1.8-7.7) Lymphocytes # (Auto) 1.1 x10^3/uL (1.0-4.8) Monocytes # (Auto) 1.7 x10^3/uL (0.0-1.1) Eosinophils # (Auto) 0.2 x10^3/uL (0.0-0.7) Basophils # (Auto) 0.1 x10^3/uL (0.0-0.2) Sodium Level 140 mmol/L (136-145) Potassium Level 3.2 mmol/L (3.5-5.1) Chloride Level 105 mmol/L (98-107) Carbon Dioxide Level 23 mmol/L (21-32) Anion Gap 12 (6-14) Blood Urea Nitrogen 11 mg/dL (8-26) Creatinine 0.7 mg/dL (0.7-1.3) Estimated GFR (Cockcroft-Gault) 113.5 Glucose Level 84 mg/dL (70-99) Calcium Level 8.4 mg/dL (8.5-10.1) Microbiology Micro Microbiology 01/24/19 - Final, Complete 01/24/19 - Final, Complete 01/24/19 - Final, Complete 01/24/19 - Final, Complete 01/24/19 Gram Stain Evaluation - Final, Complete 01/24/19 Sputum Culture - Final, Complete 01/24/19 Sputum Result 1 - Final, Complete 01/23/19 Blood Culture - Final, Complete NO GROWTH AFTER 5 DAYS Physical Exam HEENT: Neck Supple W Full Motion Chest: Symmetric LUNGS: Other (diminished bases) Heart: S1S2, RRR (SR) Abdomen: Soft N/T Extremities: No Edema Neurology: alert, follow commands, confused (intermittent ) Assessment Assessment 1. Vfib OOH arrest: culprit was occluded LCx S/P 3 stents. 2. CAD; s/p PCI/stents to LCx 3. ICM: EF 30-35% 4. Acute diastolic/systolic CHF; CXR with pul edema. s/p lasix 5. Acute respiratory failure with combination of CHF and pneumonia. Extubated. 6. Left apical pneumothorax/nondisplaced rib fractures. Pulled out chest tube overnight 7. Sepsis: ID following 8. Hypothyroidism: Defer to PCP new. TSH 10. 9. Encephalopathy 10: AFIB with RVR overnight. Convert this morning back to SR. 11. Hypokalemia; replaced Recommendations Additional Lasix PRN Continue BB and Amiodarone for rhythm/rate control. Increase metoprolol for better rate control. Recheck Mg- replace as warranted Secondary prevention measures including DAPT with ASA/Plavix. ZULEIMA BENJAMIN APRN Jan 30, 2019 15:17
[2019-01-30] MEDS ORDERED: MAGNESIUM SULFATE 2GM 50 ML IV ONE (16:15)
--- NOTE | 2019-01-30 16:52 | PDOC ---
PROGRESS NOTES Assessment Assessment Anoxia/hypoxia/metabolic encephalopathy. S/P cardiac arrest, downtime estimated on and off for 33 minutes. CAD with LCX occlusion, s/p stents placement. Respiratory failure. Hypokalemia, K+ 2.8 CHF, EF 30-35%. Lactic acidosis. Leukocytosis. Pulmonary infiltrate. Hepatic injury. Renal failure. Hematuria. Rib and sternum fracture. RECOMMENDATIONS/PLAN: Treat medical and cardiac diseases. OT/PT. Discussed with his at bedside on 01/30/19. PAST MEDICAL HISTORY Cardiovascular: HTN? Pulmonary: Asthma. Smoking. CENTRAL NERVOUS SYSTEM: No pertinent history. GI: Other (inguinal hernia) Heme/Onc: No pertinent hx Hepatobiliary: No pertinent hx Psych: No pertinent hx Musculoskeletal: Osteoarthritis Rheumatologic: No pertinent hx Infectious disease: No pertinent hx ENT: No pertinent hx Renal/: No pertinent hx Endocrine: No pertinent hx Dermatology: No pertinent hx PAST SURGICAL HISTORY Hernia Repair (left inguinal) FAMILY HISTORY Coronary Artery Disease (father) SOCIAL HISTORY Smoke: <1 pack per day ALCOHOL: none Drugs: None Lives: with Family ALLERGIES No Known Drug Allergies (Unverified , 01/23/19) MEDICATIONS: Refer to [facility] REVIEW OF SYSTEMS: Constitutional: No malnutrition, weight loss, cachexia. Head: No recent traumatic brain or head injury. Skin: No edema, or rash. Ear: No infection, tinnitus. Eyes: No vision loss or color blindness. Nose: No bleeding or purulent discharges. Hearing: No hearing decrease. Neck: No injury. Cardiac: No NJ, arrhythmia,claudication. Pulmonary: Smoking.. GI: No GI ulcer, GI bleeding. Urinary/genital: No dysuria, incontinence, urinary retention. Endocrinologic: No cousin face, craniofacial dysmorphism, polydactyly. Skeletomuscular: No muscular atrophy, deformity. Neurological: see HP. Psychiatric: Denies drug use/abuse. Otherwise, not -dnusq review of systems. PHYSICAL EXAMINATION: General appearance is in subacute distress. HEENT: Normocephalic and nontraumatic. Eyes, nose, ears, and throat are unremarkable. Neck is supple. No lymphadenopathy. No crepitus. Cardiovascular: S1, S2. Pulmonary: On vent. Abdomen: Bowel sounds are positive. Extremities: No rash, lesions, or edema. NEUROLOGICAL EXAMINATION: Awake. Able to communicate simply. Partially oriented to time, and knew place and person. PERRL. EOMI. CN: no focal findings. Muscle tone: WNL.. Muscle strength: 4. DTR: 1-2 Plantar reflex: Neutral response bilaterally Gait: not examined in chair. Sensory exam: No acute findings. No cerebellar signs elicited F-T-N test fine. Objective Objective Vital Signs Date Time Temp Pulse Resp B/P (MAP) Pulse Ox O2 Delivery O2 Flow Rate FiO2 01/30/19 15:00 97.5 72 22 128/74 (92) 96 Nasal Cannula 2.0 97.5 Intake and Output 01/30/19 07:00 Intake Total 800 ml Output Total 200 ml Balance 600 ml Blood Product IV Normal Saline Flush 800 ml Output Urine Total 200 ml # Voids 12 # Bowel Movements 3 Vitals Signs Vitals VS - Last 72 Hours, by Label Date Time Temp Pulse Resp B/P (MAP) Pulse Ox O2 Delivery O2 Flow Rate FiO2 01/30/19 15:00 97.5 72 22 128/74 (92) 96 Nasal Cannula 2.0 97.5 01/30/19 11:08 75 143/95 01/30/19 11:08 75 150/88 01/30/19 11:08 130 143/95 01/30/19 11:00 97.5 72 22 150/88 (108) 93 Nasal Cannula 2.0 97.5 01/30/19 08:00 Nasal Cannula 2.0 01/30/19 07:00 98.1 130 22 143/95 (111) 98 Nasal Cannula 2.0 98.1 01/30/19 05:36 18 94 Nasal Cannula 2.0 01/30/19 03:31 26 94 Nasal Cannula 2.0 01/30/19 03:00 98.3 111 22 142/90 (107) 95 Nasal Cannula 2.0 98.3 01/30/19 01:19 18 94 Nasal Cannula 2.0 01/29/19 23:54 18 94 Nasal Cannula 2.0 01/29/19 23:09 84 18 153/86 (108) 01/29/19 22:55 75 141/81 01/29/19 22:45 98.1 76 22 141/81 (101) 94 Nasal Cannula 2.0 98.1 01/29/19 20:00 Nasal Cannula 2.0 01/29/19 19:20 98.4 106 20 138/96 (110) 93 Nasal Cannula 2.0 98.4 01/29/19 15:00 98.1 79 16 149/82 (104) 97 Nasal Cannula 2.0 98.1 01/29/19 11:00 98.1 84 14 166/102 (123) 95 Nasal Cannula 2.0 98.1 01/29/19 08:00 Nasal Cannula 2.0 01/29/19 07:00 97.3 87 18 154/88 (110) 92 Nasal Cannula 2.0 97.3 Laboratory Laboratory Laboratory Tests Test 01/30/19 09:10 01/30/19 09:20 White Blood Count 11.0 x10^3/uL (4.0-11.0) Red Blood Count 4.01 x10^6/uL (4.30-5.70) Hemoglobin 12.9 g/dL (13.0-17.5) Hematocrit 37.1 % (39.0-53.0) Mean Corpuscular Volume 93 fL (79-100) Mean Corpuscular Hemoglobin 32 pg (25-35) Mean Corpuscular Hemoglobin Concent 35 g/dL (31-37) Red Cell Distribution Width 13.2 % (11.5-14.5) Platelet Count 151 x10^3/uL (140-400) Neutrophils (%) (Auto) 73 % (31-73) Lymphocytes (%) (Auto) 10 % (24-48) Monocytes (%) (Auto) 15 % (0-9) Eosinophils (%) (Auto) 2 % (0-3) Basophils (%) (Auto) 1 % (0-3) Neutrophils # (Auto) 8.0 x10^3/uL (1.8-7.7) Lymphocytes # (Auto) 1.1 x10^3/uL (1.0-4.8) Monocytes # (Auto) 1.7 x10^3/uL (0.0-1.1) Eosinophils # (Auto) 0.2 x10^3/uL (0.0-0.7) Basophils # (Auto) 0.1 x10^3/uL (0.0-0.2) Sodium Level 140 mmol/L (136-145) Potassium Level 3.2 mmol/L (3.5-5.1) Chloride Level 105 mmol/L (98-107) Carbon Dioxide Level 23 mmol/L (21-32) Anion Gap 12 (6-14) Blood Urea Nitrogen 11 mg/dL (8-26) Creatinine 0.7 mg/dL (0.7-1.3) Estimated GFR (Cockcroft-Gault) 113.5 Glucose Level 84 mg/dL (70-99) Calcium Level 8.4 mg/dL (8.5-10.1) Magnesium Level 1.6 mg/dL (1.8-2.4) Microbiology 01/24/19 - Final, Complete 01/24/19 - Final, Complete 01/24/19 - Final, Complete 01/24/19 - Final, Complete 01/24/19 Gram Stain Evaluation - Final, Complete 01/24/19 Sputum Culture - Final, Complete 01/24/19 Sputum Result 1 - Final, Complete 01/23/19 Blood Culture - Final, Complete NO GROWTH AFTER 5 DAYS Medication Medications Current Medications Digoxin (Lanoxin) 0.25 mcg 1X ONCE IV Last administered on 01/29/19at 22:55; Start 01/29/19 at 23:00; Stop 01/29/19 at 23:01; Status DC Doxycycline Hyclate (Vibra-Tab) 100 mg BID PO ; Start 01/30/19 at 21:00 Furosemide (Lasix) 40 mg 1X ONCE IVP Last administered on 01/30/19at 12:48; Start 01/30/19 at 13:00; Stop 01/30/19 at 13:01; Status DC Lactobacillus Rhamnosus (Culturelle) 1 cap BID PO ; Start 01/30/19 at 21:00 Lorazepam (Ativan Inj) 2 mg PRN Q4HRS PRN IV ANXIETY / AGITATION; Start 01/30/19 at 12:00 Magnesium Sulfate 50 ml @ 25 mls/hr 1X ONCE IV Last administered on 01/30/19at 16:02; Start 01/30/19 at 16:15; Stop 01/30/19 at 18:14 Metoprolol Tartrate (Lopressor) 50 mg BID PO ; Start 01/30/19 at 21:00 Pantoprazole Sodium (Protonix) 40 mg DAILYAC PO ; Start 01/31/19 at 07:30 Potassium Chloride (Klor-Con) 40 meq 1X ONCE PO Last administered on 01/30/19at 12:48; Start 01/30/19 at 12:30; Stop 01/30/19 at 12:31; Status DC Comment Review of Relevant I have reviewed the following items yadi (where applicable) has been applied. ARMANDO MAHONEY MD Jan 30, 2019 16:52
[2019-01-30 19:20] VITALS: BP 120/78
[2019-01-30] MEDS: TAMSULOSIN 0.4 MG CAP.ER.24H. PO SCH (20:47)
[2019-01-30] MEDS: ATORVASTATIN CALCIUM 20 MG TABLET PO SCH (20:47)
[2019-01-30] MEDS: METOPROLOL TART IMMED RELEASE 50 MG TABLET. PO SCH (20:48)
[2019-01-30] MEDS: LACTOBACILLUS RHAMNOSUS GG 1 CAPSULE. PO SCH (20:48)
[2019-01-30] MEDS ORDERED: DOXYCYCLINE HYCLATE 100 MG TABLET PO SCH (21:00)
[2019-01-30 22:50] VITALS: BP 151/94
[2019-01-31] MEDS: PIPERACILLIN/TAZOBACTAM 3.375 GM in IV NORMAL SALINE 50ML 50 ML IV SCH ×2 (00:32→05:30)
[2019-01-31 03:50] VITALS: BP 151/89
[2019-01-31] MEDS: MORPHINE SULFATE 2 MG/ML VIAL. IV PRN (04:05)
[2019-01-31 07:00] VITALS: BP 151/92
[2019-01-31] MEDS ORDERED: PANTOPRAZOLE 40 MG TABLET.DR. PO SCH (07:30)
[2019-01-31 08:35] LABS: CALCIUM 8.3 mg/dL (8.5-10.1); CREATININE 0.8 mg/dL (0.7-1.3); GFR 97.3; POTASSIUM 3.1 mmol/L (3.5-5.1)
[2019-01-31 08:46] LABS: BASO # 0.1 x10^3/uL (0.0-0.2); BASO % 1 % (0-3); EOS # 0.2 x10^3/uL (0.0-0.7); EOS % 1 % (0-3); HEMATOCRIT 34.2 % (39.0-53.0); HEMOGLOBIN 11.9 g/dL (13.0-17.5); LYMPH # 0.9 x10^3/uL (1.0-4.8); LYMPH % 7 % (24-48); MEAN CORPUSCULAR HEMOGLOBIN 32 pg (25-35); MEAN CORPUSCULAR HGB CONC 35 g/dL (31-37); MEAN CORPUSCULAR VOLUME 91 fL (79-100); MONO # 1.5 x10^3/uL (0.0-1.1); MONO % 12 % (0-9); NEUT # 9.8 x10^3/uL (1.8-7.7); NEUT % 79 % (31-73); PLATELET COUNT 160 x10^3/uL (140-400); RED BLOOD COUNT 3.75 x10^6/uL (4.30-5.70); WHITE BLOOD COUNT 12.4 x10^3/uL (4.0-11.0)
--- NOTE | 2019-01-31 08:56 | PDOC ---
Infectious Disease Note Subjective Subjective Says feeling alright Denies OLINDA/CP/F/C pulled out chest tube ROS ROS no n/v/d/fever Vital Sign Vital Signs Vital Signs Date Time Temp Pulse Resp B/P (MAP) Pulse Ox O2 Delivery O2 Flow Rate FiO2 01/31/19 08:00 Nasal Cannula 2.0 01/31/19 07:00 97.7 76 20 151/92 (111) 96 97.7 Physical Exam PHYSICAL EXAM GENERAL: Propped up in bed, awake, smiling HEENT: Oral cavity pink, moist NECK: Supple. LUNGS: Decreased at bases. Left chest tube out HEART: S1, S2. ABDOMEN: Minimally distended, nontender, soft + BS bowel sounds. He has a well-approximated incision in the left lower quadrant. GENITOURINARY: العلي EXTREMITIES: No clubbing or cyanosis. No gross edema. SKIN: Warm to touch without signs of rash. NEUROLOGICAL: Responding appropriately PIV Labs Lab Laboratory Tests Test 01/30/19 09:10 01/30/19 09:20 01/31/19 08:10 White Blood Count 11.0 x10^3/uL (4.0-11.0) 12.4 x10^3/uL (4.0-11.0) Red Blood Count 4.01 x10^6/uL (4.30-5.70) 3.75 x10^6/uL (4.30-5.70) Hemoglobin 12.9 g/dL (13.0-17.5) 11.9 g/dL (13.0-17.5) Hematocrit 37.1 % (39.0-53.0) 34.2 % (39.0-53.0) Mean Corpuscular Volume 93 fL (79-100) 91 fL (79-100) Mean Corpuscular Hemoglobin 32 pg (25-35) 32 pg (25-35) Mean Corpuscular Hemoglobin Concent 35 g/dL (31-37) 35 g/dL (31-37) Red Cell Distribution Width 13.2 % (11.5-14.5) 13.0 % (11.5-14.5) Platelet Count 151 x10^3/uL (140-400) 160 x10^3/uL (140-400) Neutrophils (%) (Auto) 73 % (31-73) 79 % (31-73) Lymphocytes (%) (Auto) 10 % (24-48) 7 % (24-48) Monocytes (%) (Auto) 15 % (0-9) 12 % (0-9) Eosinophils (%) (Auto) 2 % (0-3) 1 % (0-3) Basophils (%) (Auto) 1 % (0-3) 1 % (0-3) Neutrophils # (Auto) 8.0 x10^3/uL (1.8-7.7) 9.8 x10^3/uL (1.8-7.7) Lymphocytes # (Auto) 1.1 x10^3/uL (1.0-4.8) 0.9 x10^3/uL (1.0-4.8) Monocytes # (Auto) 1.7 x10^3/uL (0.0-1.1) 1.5 x10^3/uL (0.0-1.1) Eosinophils # (Auto) 0.2 x10^3/uL (0.0-0.7) 0.2 x10^3/uL (0.0-0.7) Basophils # (Auto) 0.1 x10^3/uL (0.0-0.2) 0.1 x10^3/uL (0.0-0.2) Sodium Level 140 mmol/L (136-145) 142 mmol/L (136-145) Potassium Level 3.2 mmol/L (3.5-5.1) 3.1 mmol/L (3.5-5.1) Chloride Level 105 mmol/L (98-107) 106 mmol/L (98-107) Carbon Dioxide Level 23 mmol/L (21-32) 30 mmol/L (21-32) Anion Gap 12 (6-14) 6 (6-14) Blood Urea Nitrogen 11 mg/dL (8-26) 14 mg/dL (8-26) Creatinine 0.7 mg/dL (0.7-1.3) 0.8 mg/dL (0.7-1.3) Estimated GFR (Cockcroft-Gault) 113.5 97.3 Glucose Level 84 mg/dL (70-99) 105 mg/dL (70-99) Calcium Level 8.4 mg/dL (8.5-10.1) 8.3 mg/dL (8.5-10.1) Magnesium Level 1.6 mg/dL (1.8-2.4) Micro GRAM STAIN WHITE BLOOD CELLS Final None seen GRAM STAIN EPITHELIAL CELLS Final None seen GRAM STAIN RESULT 1 Final Comment Moderate number of gram positive cocci. GRAM STAIN RESULT 2 Final Comment Few gram negative rods. GRAM STAIN EVALUATION Final Comment This specimen is of good quality and is acceptable for routine bacterial culture. Performed at: - [facility] [address], [place], [place] [id number] Music Orchestrator: CHICHO Berman MD, Phone: [phone] SPUTUM CULTURE-LC Final Final report SPUTUM CULT RES 1 Final Comment CONTINUED ON NEXT PAGE RUN DATE: 01/30/19 PAGE 2 RUN TIME: 06 [facility] [address] [place] [address] Kendall Arroyo M.D., Art Department Head SPEC: [id number] PATIENT: TOMI DOZIER Norah [id number] (Continued) Procedure Result SPUTUM CULT RES 1 Final (continued) Routine respiratory charisse Performed at: DA - [facility] [address], [place], [place] [id number] Music Orchestrator: CHICHO Berman MD, Phone: [phone] Objective Assessment Sepsis - POA 01/23 -Blood cults neg so far. No pressors- procal 0.4 01/24 Pneumonia -LLL infiltrate and interstitial opacities -mycoplasma - neg. 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 reactive - better Diffuse small bowel thickening on CT Plan Plan of Care change antibiotics to po augmentin legionella antigens and sputum cult,, neg F/u labs and cults Supportive care pt/ot ok to d/c to [facility] MARY JANE DOBBINS MD Jan 31, 2019 08:56
[2019-01-31] MEDS: CLOPIDOGREL BISULFATE 75 MG TABLET PO SCH (09:00)
[2019-01-31] MEDS ORDERED: AMOXICILLIN/K CLAV 875/125MG TABLET. PO SCH (09:00)
[2019-01-31] MEDS: METOPROLOL TART IMMED RELEASE 50 MG TABLET. PO SCH (09:00)
[2019-01-31] MEDS: LACTOBACILLUS RHAMNOSUS GG 1 CAPSULE. PO SCH (09:00)
[2019-01-31] MEDS: LISINOPRIL 5 MG TABLET. PO SCH (09:01)
[2019-01-31] MEDS: ASPIRIN ENTERIC COATED 325 MG TABLET.DR. PO SCH (09:01)
[2019-01-31] MEDS: OXYBUTYNIN CHLORIDE 5 MG TABLET PO SCH ×2 (09:01→15:15)
[2019-01-31] MEDS: AMIODARONE HCL 200 MG TABLET. PO SCH (09:01)
[2019-01-31] MEDS: HEPARIN for SUB-Q USE 5,000 UNIT/ML VIAL. SQ SCH (09:20)
--- NOTE | 2019-01-31 09:31 | RAD ---
PORTABLE CHEST 1V 01/31/2019 9:00 AM INDICATION: Respiratory failure COMPARISON: 01/30/2019 TECHNIQUE: Portable frontal view of the chest is provided. FINDINGS: The cardiomediastinal silhouette is similar in appearance. Small left pleural effusion with adjacent compressive atelectasis versus infiltrate. Mild pulmonary vascular congestion appears stable. Mild bilateral hilar prominence, stable. There is patchy consolidative change in the right suprahilar region. Finding is stable. No pneumothorax. IMPRESSION: Aeration of the lungs appears similar to the prior examination. Electronically signed by: Renetta Rodriguez MD (01/31/2019 9:28 AM) [facility]
--- NOTE | 2019-01-31 10:26 | PDOC ---
PROGRESS NOTES Chief Complaint Chief Complaint DISCHARGE DX CAD s/p stat PCI/LHC with stents to left circ (x 3 stents) EXTUBATED 01/27/19 s/p out of hospital cardiac arrest, V Fib with ROSC after 33 mins CPR and 5 defibrillations given Post intubation APICAL PTX s/p chest tube (01/24) Respi failure sec to above # 1 on IPPV Asthma SIRS sec to # 1, no infection REactive leukocytosis hypokalemia, 2,8 ON REPLACEMENT HYPERmagnesemia 2.7 MARIANNE post code Anoxia/hypoxia/metabolic encephalopathy. [employer], will reeval in 3 mo for AICD consideration. 33MIN PT EXAM, CHART REVIEW D/C PLANNING , > 50% OF TIME SPENT WITH EXAM, CHART REVIEW, PT CARE COORDINATION History of Present Illness History of Present Illness extubated 01/27 after 5 days intubation for cardiac arrest s.p hypothermia protocol Passed swallow! dysphagia diet SNu in the works, dw SW and family and RN Vince 3.2 Anxiety - can have more ativan PLAN: SNu on the works PTOT SW - will need SNU FULL CODE chest tube to dc today likely inc ativan to 2 mgs Restart PO ,meds cont flomax, oxybutynin Vitals Vitals Vital Signs Date Time Temp Pulse Resp B/P (MAP) Pulse Ox O2 Delivery O2 Flow Rate FiO2 01/31/19 09:07 76 151/92 01/31/19 08:00 Nasal Cannula 2.0 01/31/19 07:00 97.7 20 96 97.7 Physical Exam Physical Exam GENERAL: Propped up in bed, awake, smiling HEENT: Oral cavity pink, moist NECK: Supple. LUNGS: Decreased at bases. Left chest tube out HEART: S1, S2. ABDOMEN: Minimally distended, nontender, soft + BS bowel sounds. He has a well-approximated incision in the left lower quadrant. GENITOURINARY: العلي EXTREMITIES: No clubbing or cyanosis. No gross edema. SKIN: Warm to touch without signs of rash. NEUROLOGICAL: Responding appropriately PIV General: mild distress Heart: Regular rate Lungs: Other (decrease base) Abdomen: Normal bowel sounds Extremities: No clubbing, No cyanosis, No edema, Normal pulses Skin: No breakdown, No significant lesion Labs LABS INDICATION: Respiratory failure COMPARISON: 01/30/2019 TECHNIQUE: Portable frontal view of the chest is provided. FINDINGS: The cardiomediastinal silhouette is similar in appearance. Small left pleural effusion with adjacent compressive atelectasis versus infiltrate. Mild pulmonary vascular congestion appears stable. Mild bilateral hilar prominence, stable. There is patchy consolidative change in the right suprahilar region. Finding is stable. No pneumothorax. IMPRESSION: Aeration of the lungs appears similar to the prior examination. Electronically signed by: Renetta Rodriguez MD (01/31/2019 9:28 AM) [facility] Laboratory Tests Test 01/31/19 08:10 White Blood Count 12.4 x10^3/uL (4.0-11.0) Red Blood Count 3.75 x10^6/uL (4.30-5.70) Hemoglobin 11.9 g/dL (13.0-17.5) Hematocrit 34.2 % (39.0-53.0) Mean Corpuscular Volume 91 fL (79-100) Mean Corpuscular Hemoglobin 32 pg (25-35) Mean Corpuscular Hemoglobin Concent 35 g/dL (31-37) Red Cell Distribution Width 13.0 % (11.5-14.5) Platelet Count 160 x10^3/uL (140-400) Neutrophils (%) (Auto) 79 % (31-73) Lymphocytes (%) (Auto) 7 % (24-48) Monocytes (%) (Auto) 12 % (0-9) Eosinophils (%) (Auto) 1 % (0-3) Basophils (%) (Auto) 1 % (0-3) Neutrophils # (Auto) 9.8 x10^3/uL (1.8-7.7) Lymphocytes # (Auto) 0.9 x10^3/uL (1.0-4.8) Monocytes # (Auto) 1.5 x10^3/uL (0.0-1.1) Eosinophils # (Auto) 0.2 x10^3/uL (0.0-0.7) Basophils # (Auto) 0.1 x10^3/uL (0.0-0.2) Sodium Level 142 mmol/L (136-145) Potassium Level 3.1 mmol/L (3.5-5.1) Chloride Level 106 mmol/L (98-107) Carbon Dioxide Level 30 mmol/L (21-32) Anion Gap 6 (6-14) Blood Urea Nitrogen 14 mg/dL (8-26) Creatinine 0.8 mg/dL (0.7-1.3) Estimated GFR (Cockcroft-Gault) 97.3 Glucose Level 105 mg/dL (70-99) Calcium Level 8.3 mg/dL (8.5-10.1) Assessment and Plan Assessmemt and Plan Problems Medical Problems: (1) Cardiorespiratory arrest Status: Acute (2) Elevated liver function tests Status: Acute (3) Elevated troponin Status: Acute (4) Hyperglycemia Status: Acute (5) Hypokalemia Status: Acute (6) Metabolic acidosis Status: Acute (7) Renal insufficiency Status: Acute (8) Ribs, multiple fractures Status: Acute (9) Severe sepsis Status: Acute (10) STEMI (ST elevation myocardial infarction) Status: Acute (11) Traumatic pneumothorax Status: Acute Comment Review of Relevant I have reviewed the following items yadi (where applicable) has been applied. Labs Laboratory Tests Test 01/30/19 09:10 01/30/19 09:20 01/31/19 08:10 White Blood Count 11.0 x10^3/uL (4.0-11.0) 12.4 x10^3/uL (4.0-11.0) Red Blood Count 4.01 x10^6/uL (4.30-5.70) 3.75 x10^6/uL (4.30-5.70) Hemoglobin 12.9 g/dL (13.0-17.5) 11.9 g/dL (13.0-17.5) Hematocrit 37.1 % (39.0-53.0) 34.2 % (39.0-53.0) Mean Corpuscular Volume 93 fL (79-100) 91 fL (79-100) Mean Corpuscular Hemoglobin 32 pg (25-35) 32 pg (25-35) Mean Corpuscular Hemoglobin Concent 35 g/dL (31-37) 35 g/dL (31-37) Red Cell Distribution Width 13.2 % (11.5-14.5) 13.0 % (11.5-14.5) Platelet Count 151 x10^3/uL (140-400) 160 x10^3/uL (140-400) Neutrophils (%) (Auto) 73 % (31-73) 79 % (31-73) Lymphocytes (%) (Auto) 10 % (24-48) 7 % (24-48) Monocytes (%) (Auto) 15 % (0-9) 12 % (0-9) Eosinophils (%) (Auto) 2 % (0-3) 1 % (0-3) Basophils (%) (Auto) 1 % (0-3) 1 % (0-3) Neutrophils # (Auto) 8.0 x10^3/uL (1.8-7.7) 9.8 x10^3/uL (1.8-7.7) Lymphocytes # (Auto) 1.1 x10^3/uL (1.0-4.8) 0.9 x10^3/uL (1.0-4.8) Monocytes # (Auto) 1.7 x10^3/uL (0.0-1.1) 1.5 x10^3/uL (0.0-1.1) Eosinophils # (Auto) 0.2 x10^3/uL (0.0-0.7) 0.2 x10^3/uL (0.0-0.7) Basophils # (Auto) 0.1 x10^3/uL (0.0-0.2) 0.1 x10^3/uL (0.0-0.2) Sodium Level 140 mmol/L (136-145) 142 mmol/L (136-145) Potassium Level 3.2 mmol/L (3.5-5.1) 3.1 mmol/L (3.5-5.1) Chloride Level 105 mmol/L (98-107) 106 mmol/L (98-107) Carbon Dioxide Level 23 mmol/L (21-32) 30 mmol/L (21-32) Anion Gap 12 (6-14) 6 (6-14) Blood Urea Nitrogen 11 mg/dL (8-26) 14 mg/dL (8-26) Creatinine 0.7 mg/dL (0.7-1.3) 0.8 mg/dL (0.7-1.3) Estimated GFR (Cockcroft-Gault) 113.5 97.3 Glucose Level 84 mg/dL (70-99) 105 mg/dL (70-99) Calcium Level 8.4 mg/dL (8.5-10.1) 8.3 mg/dL (8.5-10.1) Magnesium Level 1.6 mg/dL (1.8-2.4) Laboratory Tests Test 01/31/19 08:10 White Blood Count 12.4 x10^3/uL (4.0-11.0) Red Blood Count 3.75 x10^6/uL (4.30-5.70) Hemoglobin 11.9 g/dL (13.0-17.5) Hematocrit 34.2 % (39.0-53.0) Mean Corpuscular Volume 91 fL (79-100) Mean Corpuscular Hemoglobin 32 pg (25-35) Mean Corpuscular Hemoglobin Concent 35 g/dL (31-37) Red Cell Distribution Width 13.0 % (11.5-14.5) Platelet Count 160 x10^3/uL (140-400) Neutrophils (%) (Auto) 79 % (31-73) Lymphocytes (%) (Auto) 7 % (24-48) Monocytes (%) (Auto) 12 % (0-9) Eosinophils (%) (Auto) 1 % (0-3) Basophils (%) (Auto) 1 % (0-3) Neutrophils # (Auto) 9.8 x10^3/uL (1.8-7.7) Lymphocytes # (Auto) 0.9 x10^3/uL (1.0-4.8) Monocytes # (Auto) 1.5 x10^3/uL (0.0-1.1) Eosinophils # (Auto) 0.2 x10^3/uL (0.0-0.7) Basophils # (Auto) 0.1 x10^3/uL (0.0-0.2) Sodium Level 142 mmol/L (136-145) Potassium Level 3.1 mmol/L (3.5-5.1) Chloride Level 106 mmol/L (98-107) Carbon Dioxide Level 30 mmol/L (21-32) Anion Gap 6 (6-14) Blood Urea Nitrogen 14 mg/dL (8-26) Creatinine 0.8 mg/dL (0.7-1.3) Estimated GFR (Cockcroft-Gault) 97.3 Glucose Level 105 mg/dL (70-99) Calcium Level 8.3 mg/dL (8.5-10.1) Microbiology 01/24/19 - Final, Complete 01/24/19 - Final, Complete 01/24/19 - Final, Complete 01/24/19 - Final, Complete 01/24/19 Gram Stain Evaluation - Final, Complete 01/24/19 Sputum Culture - Final, Complete 01/24/19 Sputum Result 1 - Final, Complete 01/23/19 Blood Culture - Final, Complete NO GROWTH AFTER 5 DAYS Medications Current Medications Sodium Chloride 1,000 ml @ 1,000 mls/hr Q1H IV Last administered on 01/23/19at 17:23; Start 01/23/19 at 15:13; Stop 01/23/19 at 16:12; Status DC Sodium Bicarbonate (Sodium Bicarb Adult 8.4% Syr) 100 meq 1X ONCE IV Last administered on 01/23/19at 17:23; Start 01/23/19 at 15:30; Stop 01/23/19 at 15:59; Status DC Midazolam HCl (Versed) 5 mg STK-MED ONCE .ROUTE ; Start 01/23/19 at 15:25; Stop 01/23/19 at 15:25; Status DC Propofol 50 ml @ As Directed STK-MED ONCE IV ; Start 01/23/19 at 15:25; Stop 01/23/19 at 15:25; Status DC Calcium Gluconate (Calcium Gluconate) 1,000 mg 1X ONCE IVP Last administered on 01/23/19at 16:12; Start 01/23/19 at 16:00; Stop 01/23/19 at 16:01; Status DC Dextrose (Dextrose 50%-Water Syringe) 25 gm 1X ONCE IV ; Start 01/23/19 at 15:45; Stop 01/23/19 at 15:53; Status DC Insulin Human Regular (HumuLIN R VIAL) 10 unit 1X ONCE IV ; Start 01/23/19 at 15:45; Stop 01/23/19 at 15:53; Status DC Iohexol (Omnipaque 350 Mg/ml) 90 ml 1X ONCE IV Last administered on 01/23/19at 16:08; Start 01/23/19 at 15:45; Stop 01/23/19 at 16:00; Status DC Amiodarone HCl 900 mg/Dextrose 518 ml @ 0 mls/hr CONT PRN IV SEE I/O RECORD Last administered on 01/23/19at 17:06; Start 01/23/19 at 16:00; Stop 01/23/19 at 17:06; Status DC Piperacillin Sod/ Tazobactam Sod 3.375 gm/Sodium Chloride 50 ml @ 100 mls/hr 1X ONCE IV Last administered on 01/23/19at 22:19; Start 01/23/19 at 16:00; Stop 01/23/19 at 16:29; Status DC Vancomycin HCl 250 ml @ 250 mls/hr 1X ONCE IV ; Start 01/23/19 at 16:00; Stop 01/23/19 at 16:24; Status DC Fentanyl Citrate (Fentanyl 2ml Vial) 100 mcg 1X ONCE IV ; Start 01/23/19 at 16:15; Stop 01/23/19 at 16:24; Status DC Midazolam HCl (Versed) 2 mg 1X ONCE IV ; Start 01/23/19 at 16:15; Stop 01/23/19 at 16:24; Status DC Magnesium Sulfate/ Dextrose 100 ml @ 100 mls/hr 1X ONCE IV ; Start 01/23/19 at 16:15; Stop 01/23/19 at 17:14; Status DC Buspirone HCl (Buspar) 30 mg Q8H NG Last administered on 01/25/19at 08:47; Start 01/23/19 at 17:00; Stop 01/25/19 at 09:01; Status DC Acetaminophen (Tylenol) 650 mg Q4H NG Last administered on 01/25/19at 11:11; Start 01/23/19 at 16:15; Stop 01/26/19 at 01:00; Status DC Artificial Tears (Artificial Tears) 1 drop Q6HRS OU Last administered on 01/25/19at 23:53; Start 01/23/19 at 18:00; Stop 01/26/19 at 01:00; Status DC Artificial Tears (Artificial Tears) 1 drop PRN Q15MIN PRN OU DRY EYE; Start 01/23/19 at 16:15; Stop 01/26/19 at 01:00; Status DC Heparin Sodium (Porcine) (Heparin Sodium) 5,000 unit BID SQ ; Start 01/23/19 at 21:00; Stop 01/23/19 at 16:53; Status DC Pantoprazole Sodium (PROTONIX VIAL for IV PUSH) 40 mg DAILY IVP ; Start 01/24/19 at 09:00; Stop 01/23/19 at 20:27; Status DC Fentanyl Citrate 30 ml @ 0 mls/hr CONT PRN IV PER PROTOCOL.; Start 01/23/19 at 16:15; Stop 01/23/19 at 18:01; Status DC Propofol 100 ml @ 0 mls/hr CONT PRN IV PER PROTOCOL.; Start 01/23/19 at 16:15; Stop 01/23/19 at 20:27; Status DC Midazolam HCl 100 ml @ 0 mls/hr CONT PRN IV PER PROTOCOL. Last administered on 01/23/19at 16:50; Start 01/23/19 at 16:15; Stop 01/23/19 at 20:26; Status DC Vecuronium [place] (Norcuron Bolus) 7 mg PRN Q1HR PRN IV SHIVERING; Start 01/23/19 at 16:15; Stop 01/23/19 at 20:28; Status DC Pantoprazole Sodium (PROTONIX VIAL for IV PUSH) 40 mg DAILYAC IVP ; Start 01/24/19 at 07:30; Stop 01/23/19 at 16:25; Status DC Pantoprazole Sodium (PROTONIX VIAL for IV PUSH) 40 mg 1X ONCE IVP Last administered on 01/23/19at 23:43; Start 01/23/19 at 17:00; Stop 01/23/19 at 17:01; Status DC Enoxaparin Sodium (Lovenox 40mg Syringe) 40 mg Q24H SQ ; Start 01/23/19 at 21:00; Stop 01/23/19 at 23:59; Status DC Sodium Chloride 1,000 ml @ 150 mls/hr Q6H40M IV Last administered on 01/24/19at 04:43; Start 01/23/19 at 16:11; Stop 01/24/19 at 11:40; Status DC Potassium Chloride/Water 100 ml @ 100 mls/hr Q1H IV Last administered on 01/23/19at 19:06; Start 01/23/19 at 17:00; Stop 01/23/19 at 20:59; Status DC Potassium Chloride/Water 100 ml @ 100 mls/hr Q1H IV ; Start 01/23/19 at 22:00; Stop 01/23/19 at 23:59; Status DC Vancomycin HCl 1.75 gm/Sodium Chloride 500 ml @ 250 mls/hr 1X ONCE IV Last administered on 01/23/19at 23:42; Start 01/23/19 at 18:00; Stop 01/23/19 at 19:59; Status DC Aspirin (Aspirin Rectal Supp) 300 mg 1X ONCE MN Last administered on 01/23/19at 20:27; Start 01/23/19 at 17:00; Stop 01/23/19 at 17:01; Status DC Lidocaine HCl (Lidocaine 1% 20ml Vial) 20 ml STK-MED ONCE .ROUTE ; Start 01/23/19 at 16:37; Stop 01/23/19 at 16:37; Status DC Heparin Sodium/ Sodium Chloride 1,000 ml @ As Directed STK-MED ONCE .ROUTE ; Start 01/23/19 at 16:37; Stop 01/23/19 at 16:38; Status DC Heparin Sodium/ Dextrose 500 ml @ 0 mls/hr CONT PRN IV SEE I/O RECORD; Start 01/23/19 at 17:00; Stop 01/23/19 at 23:27; Status DC Midazolam HCl (Versed) 5 mg STK-MED ONCE .ROUTE ; Start 01/23/19 at 17:00; Stop 01/23/19 at 17:00; Status DC Sodium Chloride 1,000 ml @ 1,000 mls/hr 1X ONCE IV Last administered on 01/23/19at 18:58; Start 01/23/19 at 17:30; Stop 01/23/19 at 18:29; Status DC Propofol 50 ml @ 2.1 mls/hr 1X STAT IV Last administered on 01/23/19at 18:51; Start 01/23/19 at 17:17; Stop 01/23/19 at 20:27; Status DC Midazolam HCl (Versed) 5 mg 1X ONCE IV Last administered on 01/23/19at 18:18; Start 01/23/19 at 17:30; Stop 01/23/19 at 17:31; Status DC Fentanyl Citrate 30 ml @ 0 mls/hr CONT PRN PRN IV PER PROTOCOL; Start 01/23/19 at 17:45; Status Cancel Naloxone HCl (Narcan) 0.4 mg PRN Q2MIN PRN IV SEE INSTRUCTIONS; Start 01/23/19 at 17:45 Sodium Chloride 1,000 ml @ 25 mls/hr Q24H IV Last administered on 01/26/19at 15:11; Start 01/23/19 at 17:33; Stop 01/30/19 at 13:34; Status DC Midazolam HCl (Versed) 5 mg 1X ONCE IV Last administered on 01/23/19 19:02; Start 01/23/19 at 18:15; Stop 01/23/19 at 18:16; Status DC Amiodarone HCl (Cordarone) 150 mg STK-MED ONCE .ROUTE ; Start 01/23/19 at 18:11; Stop 01/23/19 at 18:12; Status DC Iodixanol (Visipaque 320) 100 ml STK-MED ONCE .ROUTE ; Start 01/23/19 at 18:19; Stop 01/23/19 at 18:19; Status DC Bivalirudin (Angiomax) 250 mg STK-MED ONCE IV ; Start 01/23/19 at 18:20; Stop 01/23/19 at 18:20; Status DC Nitroglycerin (Nitroglycerin) 200 mcg 1X ONCE IART Last administered on 01/23/19 19:10; Start 01/23/19 at 18:45; Stop 01/23/19 at 18:56; Status DC Heparin Sodium/ Sodium Chloride (HEPARIN for ARTERIAL LINE FLUSH) 1,000 unit 1X ONCE IART Last administered on 01/23/19at 19:10; Start 01/23/19 at 18:45; Stop 01/23/19 at 18:56; Status DC Heparin Sodium/ Sodium Chloride (HEPARIN for ARTERIAL LINE FLUSH) 1,000 unit 1X ONCE IART Last administered on 01/23/19at 19:10; Start 01/23/19 at 18:45; Stop 01/23/19 at 18:56; Status DC Iodixanol (Visipaque 320) 100 ml 1X ONCE IART Last administered on 01/23/19at 19:10; Start 01/23/19 at 18:45; Stop 01/23/19 at 18:56; Status DC Bivalirudin (Angiomax) 250 mg 1X ONCE IV Last administered on 01/23/19at 19:10; Start 01/23/19 at 18:45; Stop 01/23/19 at 18:56; Status DC Lidocaine HCl (Lidocaine 1% 20ml Vial) 10 ml 1X ONCE INJ Last administered on 01/23/19at 19:10; Start 01/23/19 at 18:45; Stop 01/23/19 at 18:56; Status DC Amiodarone HCl 150 mg/Dextrose 103 ml @ 0 mls/hr 1X ONCE IV Last administered on 01/23/19at 19:10; Start 01/23/19 at 19:00; Stop 01/23/19 at 19:01; Status DC Info (CONTRAST GIVEN -- Rx MONITORING) 1 each PRN DAILY PRN MC SEE COMMENTS; Start 01/23/19 at 19:00; Stop 01/25/19 at 18:59; Status DC Heparin Sodium/ Sodium Chloride 500 ml @ As Directed STK-MED ONCE .ROUTE ; Start 01/23/19 at 19:02; Stop 01/23/19 at 19:03; Status DC Sodium Chloride (Normal Saline Flush) 3 ml QSHIFT PRN IV AFTER MEDS AND BLOOD DRAWS; Start 01/23/19 at 19:30 Sodium Chloride 1,000 ml @ 75 mls/hr [id number] IV Last administered on 01/23/19at 20:27; Start 01/23/19 at 19:17; Stop 01/24/19 at 03:16; Status DC Aspirin (Ecotrin) 325 mg DAILYWBKFT PO Last administered on 01/31/19 09:07; Start 01/24/19 at 08:00 Clopidogrel Bisulfate (Plavix) 75 mg DAILYWBKFT PO Last administered on 01/31/19at 09:07; Start 01/24/19 at 08:00 Acetaminophen (Tylenol) 650 mg PRN Q6HRS PRN PO MILD PAIN / TEMP Last administered on 01/27/19at 11:01; Start 01/23/19 at 19:30 Fentanyl Citrate (Fentanyl 2ml Vial) 50 mcg PRN Q1HR PRN IV MODERATE OR SEVERE PAIN; Start 01/23/19 at 19:30; Stop 01/26/19 at 00:59; Status DC Nitroglycerin (Nitrostat) 0.4 mg PRN Q5MIN PRN SL CHEST PAIN; Start 01/23/19 at 19:30 Amiodarone HCl 150 mg/Dextrose 103 ml @ 600 mls/hr 1X PRN PRN IV FOR VENTR ICULAR TACHYCARDIA; Start 01/23/19 at 19:30 Lidocaine HCl (Lidocaine HCl 2% Abboject) 100 mg 1X PRN PRN IV FOR VENTRICULAR TACHYCARDIA; Start 01/23/19 at 19:30 Atropine Sulfate (ATROPINE 0.5mg SYRINGE) 0.5 mg PRN 1X PRN IV BRADYCARDIA; Start 01/23/19 at 19:30 Fentanyl Citrate (Fentanyl 2ml Vial) 100 mcg 1X ONCE IV Last administered on 01/23/19at 20:27; Start 01/23/19 at 19:45; Stop 01/23/19 at 20:25; Status DC Midazolam HCl (Versed) 2 mg 1X ONCE IV ; Start 01/23/19 at 19:45; Stop 01/23/19 at 20:25; Status DC Magnesium Sulfate/ Dextrose 100 ml @ 100 mls/hr 1X ONCE IV Last administered on 01/23/19at 20:46; Start 01/23/19 at 19:45; Stop 01/23/19 at 20:44; Status DC Heparin Sodium (Porcine) (Heparin Sodium) 5,000 unit BID SQ Last administered on 01/31/19at 09:20; Start 01/23/19 at 21:00 Pantoprazole Sodium (PROTONIX VIAL for IV PUSH) 40 mg DAILY IVP Last administered on 01/27/19at 08:06; Start 01/24/19 at 09:00; Stop 01/28/19 at 10:09; Status DC Fentanyl Citrate 30 ml @ 0 mls/hr CONT PRN IV PER PROTOCOL. Last administered on 01/25/19at 16:54; Start 01/23/19 at 19:45; Stop 01/26/19 at 01:00; Status DC Propofol 100 ml @ 0 mls/hr CONT PRN IV PER PROTOCOL.; Start 01/23/19 at 19:45; Stop 01/26/19 at 01:00; Status DC Midazolam HCl 100 ml @ 0 mls/hr CONT PRN IV PER PROTOCOL. Last administered on 01/25/19at 23:11; Start 01/23/19 at 19:45; Stop 01/26/19 at 01:00; Status DC Vecuronium [place] (Norcuron Bolus) 7 mg PRN Q1HR PRN IV SHIVERING Last administered on 01/24/19at 21:19; Start 01/23/19 at 19:45; Stop 01/28/19 at 09:12; Status DC Norepinephrine Bitartrate 250 ml @ 13.608 mls/ hr CONT PRN IV SEE I/O RECORD; Start 01/23/19 at 20:45; Stop 01/28/19 at 09:12; Status DC Sodium Chloride 500 ml @ 500 mls/hr 1X ONCE IV Last administered on 01/23/19at 20:57; Start 01/23/19 at 20:45; Stop 01/23/19 at 21:44; Status DC Daptomycin 440 mg/ Sodium Chloride 50 ml @ 100 mls/hr Q24H IV Last admi nistered on 01/25/19at 23:11; Start 01/23/19 at 23:00; Stop 01/26/19 at 07:52; Status DC Linezolid/Dextrose 300 ml @ 300 mls/hr Q12HR IV Last administered on 01/25/19at 21:03; Start 01/24/19 at 09:00; Stop 01/26/19 at 07:52; Status DC Doxycycline Hyclate 100 mg/ Dextrose 100 ml @ 50 mls/hr Q12HR IV Last administered on 01/30/19at 09:19; Start 01/24/19 at 09:00; Stop 01/30/19 at 11:53; Status DC Doxycycline Hyclate 100 mg/ Dextrose 100 ml @ 50 mls/hr 1X ONCE IV Last administered on 01/23/19at 23:42; Start 01/23/19 at 23:30; Stop 01/24/19 at 01:29; Status DC Linezolid/Dextrose 300 ml @ 300 mls/hr ONCE ONCE IV Last administered on 01/23/19at 23:42; Start 01/23/19 at 23:00; Stop 01/23/19 at 23:59; Status DC Insulin Human Regular 150 unit/ Sodium Chloride 151.5 ml @ 0 mls/hr CONT PRN IV SEE I/O RECORD; Start 01/23/19 at 23:15; Stop 01/26/19 at 08:41; Status DC Magnesium Sulfate 50 ml @ 25 mls/hr 1X ONCE IV Last administered on 01/24/19at 08:29; Start 01/24/19 at 06:45; Stop 01/24/19 at 08:44; Status DC Piperacillin Sod/ Tazobactam Sod 3.375 gm/Sodium Chloride 50 ml @ 100 mls/hr Q6HRS IV Last administered on 01/31/19at 05:30; Start 01/24/19 at 08:00; Stop 01/31/19 at 08:57; Status DC Atorvastatin Calcium (Lipitor) 20 mg QHS PO Last administered on 01/30/19at 21:01; Start 01/24/19 at 21:00 Sodium Chloride 1,000 ml @ 100 mls/hr Q10H IV Last administered on 01/30/19at 09:19; Start 01/24/19 at 11:45; Stop 01/30/19 at 11:53; Status DC Amiodarone HCl 900 mg/Dextrose 518 ml @ 17 mls/hr 30H29M IV ; Start 01/24/19 at 15:00; Status Cancel Magnesium Sulfate/ Dextrose 100 ml @ 100 mls/hr 1X ONCE IV Last administered on 01/24/19at 13:52; Start 01/24/19 at 13:30; Stop 01/24/19 at 14:29; Status DC Lidocaine/Sodium Bicarbonate (Buffered Lidocaine 1%) 3 ml STK-MED ONCE .ROUTE ; Start 01/24/19 at 15:03; Stop 01/24/19 at 15:04; Status DC Amiodarone HCl 900 mg/Dextrose 518 ml @ 33 mls/hr CONT PRN IV SEE I/O RECORD Last administered on 01/24/19at 16:09; Start 01/24/19 at 16:30; Stop 01/24/19 at 16:30; Status DC Potassium Chloride/Water 100 ml @ 100 mls/hr Q1H IV ; Start 01/25/19 at 09:00; Stop 01/25/19 at 10:06; Status DC Amiodarone HCl 450 mg/Dextrose 259 ml @ 17.267 mls/ hr CONT PRN IV SEE I/O RECORD Last administered on 01/26/19at 04:56; Start 01/25/19 at 13:15; Stop 01/26/19 at 13:47; Status DC Fentanyl Citrate 30 ml @ 0 mls/hr CONT PRN IV SEE PROTOCOL Last administered on 01/26/19at 18:46; Start 01/26/19 at 01:00; Stop 01/28/19 at 09:12; Status DC Propofol 100 ml @ 0 mls/hr CONT PRN IV SEE PROTOCOL; Start 01/26/19 at 01:00; Stop 01/28/19 at 09:12; Status DC Midazolam HCl 100 ml @ 0 mls/hr CONT PRN IV SEE PROTOCOL Last administered on 01/27/19at 02:20; Start 01/26/19 at 01:00; Stop 01/28/19 at 09:12; Status DC Lorazepam (Ativan Inj) 2 mg PRN Q4HRS PRN IV ANXIETY / AGITATION Last administered on 01/28/19at 03:56; Start 01/26/19 at 08:45; Stop 01/28/19 at 09:12; Status DC Morphine Sulfate (Morphine Sulfate) 2 mg PRN Q2HR PRN IV PAIN Last administered on 01/28/19at 04:56; Start 01/26/19 at 08:45; Stop 01/28/19 at 09:12; Status DC Lisinopril (Prinivil) 2.5 mg DAILY PO Last administered on 01/31/19at 09:07; Start 01/27/19 at 09:00 Metoprolol Tartrate (Lopressor) 12.5 mg BID PO Last administered on 01/30/19at 11:08; Start 01/26/19 at 21:00; Stop 01/30/19 at 15:18; Status DC Amiodarone HCl (Cordarone) 400 mg DAILY PO Last administered on 01/31/19at 09:07; Start 01/27/19 at 09:00 Amiodarone HCl (Cordarone) 400 mg 1X ONCE PO Last administered on 01/26/19at 14:34; Start 01/26/19 at 14:15; Stop 01/26/19 at 14:16; Status DC Epinephrine HCl (EPINEPHrine SYRINGE) 1 mg STK-MED ONCE .ROUTE ; Start 01/23/19 at 14:47; Stop 01/26/19 at 14:48; Status DC Sodium Bicarbonate (Sodium Bicarb Adult 8.4% Syr) 100 meq STK-MED ONCE .ROUTE ; Start 01/23/19 at 14:47; Stop 01/26/19 at 14:48; Status DC Lorazepam (Ativan Inj) 1 mg PRN Q4HRS PRN IV ANXIETY / AGITATION Last administered on 01/30/19 01:24; Start 01/28/19 at 09:15; Stop 01/30/19 at 11:53; Status DC Morphine Sulfate (Morphine Sulfate) 1 mg PRN Q2HR PRN IV PAIN Last administered on 01/31/19 04:05; Start 01/28/19 at 09:15 Oxybutynin Chloride (Ditropan) 5 mg [id number] PO Last administered on 01/31/19 09:07; Start 01/28/19 at 10:00 Tamsulosin HCl (Flomax) 0.4 mg QHS PO Last administered on 01/30/19 21:01; Start 01/28/19 at 21:00 Famotidine (Pepcid Vial) 20 mg BID IVP Last administered on 01/30/19 09:19; Start 01/28/19 at 10:30; Stop 01/30/19 at 11:53; Status DC Labetalol HCl (Normodyne Iv Push) 10 mg PRN Q2HR PRN IVP HYPERTENSION; Start 01/29/19 at 13:00 Digoxin (Lanoxin) 0.25 mcg 1X ONCE IV Last administered on 01/29/19 22:55; Start 01/29/19 at 23:00; Stop 01/29/19 at 23:01; Status DC Potassium Chloride (Klor-Con) 40 meq 1X ONCE PO Last administered on 01/30/19 12:48; Start 01/30/19 at 12:30; Stop 01/30/19 at 12:31; Status DC Lorazepam (Ativan Inj) 2 mg PRN Q4HRS PRN IV ANXIETY / AGITATION Last administered on 01/31/19at 00:32; Start 01/30/19 at 12:00 Pantoprazole Sodium (Protonix) 40 mg DAILYAC PO ; Start 01/31/19 at 07:30 Doxycycline Hyclate (Vibra-Tab) 100 mg BID PO Last administered on 01/30/19 21 :01; Start 01/30/19 at 21:00; Stop 01/31/19 at 08:57; Status DC Furosemide (Lasix) 40 mg 1X ONCE IVP Last administered on 9/3/19at 12:48; Start 01/30/19 at 13:00; Stop 01/30/19 at 13:01; Status DC Lactobacillus Rhamnosus (Culturelle) 1 cap BID PO Last administered on 01/31/19at 09:07; Start 01/30/19 at 21:00 Metoprolol Tartrate (Lopressor) 50 mg BID PO Last administered on 01/31/19 09:07; Start 01/30/19 at 21:00 Magnesium Sulfate 50 ml @ 25 mls/hr 1X ONCE IV Last administered on 01/30/19at 16:02; Start 01/30/19 at 16:15; Stop 01/30/19 at 18:14; Status DC Amoxicillin/ Clavulanate Potassium (Augmentin 875/ 125mg) 1 tab BID PO Last administered on 01/31/19 09:20; Start 01/31/19 at 09:00 Vitals/I & O Vital Sign - Last 24 Hours 01/30/19 01/30/19 01/30/19 01/30/19 11:00 11:08 11:08 11:08 Temp 97.5 97.5 Pulse 72 130 75 75 Resp 22 B/P (MAP) 150/88 (108) 143/95 150/88 143/95 Pulse Ox 93 O2 Delivery Nasal Cannula O2 Flow Rate 2.0 01/30/19 01/30/19 01/30/19 01/30/19 15:00 19:20 20:00 21:01 Temp 97.5 98.4 97.5 98.4 Pulse 72 76 76 Resp 22 18 B/P (MAP) 128/74 (92) 120/78 (92) 120/78 Pulse Ox 96 94 O2 Delivery Nasal Cannula Nasal Cannula Nasal Cannula O2 Flow Rate 2.0 2.0 2.0 01/30/19 01/31/19 01/31/19 01/31/19 22:50 03:50 04:05 05:14 Temp 97.5 98.2 97.5 98.2 Pulse 64 71 Resp 20 20 18 18 B/P (MAP) 151/94 (113) 151/89 (109) Pulse Ox 95 95 95 95 O2 Delivery Nasal Cannula Nasal Cannula Nasal Cannula Nasal Cannula O2 Flow Rate 2.0 2.0 2.0 2.0 01/31/19 01/31/19 01/31/19 01/31/19 07:00 08:00 09:07 09:07 Temp 97.7 97.7 Pulse 76 76 76 Resp 20 B/P (MAP) 151/92 (111) 151/92 151/92 Pulse Ox 96 O2 Delivery Nasal Cannula Nasal Cannula O2 Flow Rate 2.0 2.0 01/31/19 09:07 Pulse 76 B/P (MAP) 151/92 Intake and Output 01/30/19 01/30/19 01/31/19 15:00 23:00 07:00 Intake Total 525 ml 100 ml 100 ml Balance 525 ml 100 ml 100 ml MATHEW MIX MD Jan 31, 2019 10:26
[2019-01-31 11:51] VITALS: BP 110/67
--- NOTE | 2019-01-31 11:53 | PDOC ---
PULMONARY PROGRESS NOTES Subjective NO NEW COMPLAINTS EXTUBATED 01/27 FOLLOW COMMANDS NOT MORE SOA Vitals Vital Signs Date Time Temp Pulse Resp B/P (MAP) Pulse Ox O2 Delivery O2 Flow Rate FiO2 01/31/19 09:07 76 151/92 01/31/19 08:00 Nasal Cannula 2.0 01/31/19 07:00 97.7 20 96 97.7 ROS: No Nausea, No Chest Pain, No Abdominal Pain, No Increase Cough General: Alert HEENT: Other (NO JVD) Lungs: Other (decrease base) Cardiovascular: S1, S2 Abdomen: Soft Neuro Exam: Alert Extremities: Other (EDEMA) Skin: Warm Labs Laboratory Tests Test 01/30/19 09:10 01/30/19 09:20 01/31/19 08:10 White Blood Count 11.0 x10^3/uL (4.0-11.0) 12.4 x10^3/uL (4.0-11.0) Red Blood Count 4.01 x10^6/uL (4.30-5.70) 3.75 x10^6/uL (4.30-5.70) Hemoglobin 12.9 g/dL (13.0-17.5) 11.9 g/dL (13.0-17.5) Hematocrit 37.1 % (39.0-53.0) 34.2 % (39.0-53.0) Mean Corpuscular Volume 93 fL (79-100) 91 fL (79-100) Mean Corpuscular Hemoglobin 32 pg (25-35) 32 pg (25-35) Mean Corpuscular Hemoglobin Concent 35 g/dL (31-37) 35 g/dL (31-37) Red Cell Distribution Width 13.2 % (11.5-14.5) 13.0 % (11.5-14.5) Platelet Count 151 x10^3/uL (140-400) 160 x10^3/uL (140-400) Neutrophils (%) (Auto) 73 % (31-73) 79 % (31-73) Lymphocytes (%) (Auto) 10 % (24-48) 7 % (24-48) Monocytes (%) (Auto) 15 % (0-9) 12 % (0-9) Eosinophils (%) (Auto) 2 % (0-3) 1 % (0-3) Basophils (%) (Auto) 1 % (0-3) 1 % (0-3) Neutrophils # (Auto) 8.0 x10^3/uL (1.8-7.7) 9.8 x10^3/uL (1.8-7.7) Lymphocytes # (Auto) 1.1 x10^3/uL (1.0-4.8) 0.9 x10^3/uL (1.0-4.8) Monocytes # (Auto) 1.7 x10^3/uL (0.0-1.1) 1.5 x10^3/uL (0.0-1.1) Eosinophils # (Auto) 0.2 x10^3/uL (0.0-0.7) 0.2 x10^3/uL (0.0-0.7) Basophils # (Auto) 0.1 x10^3/uL (0.0-0.2) 0.1 x10^3/uL (0.0-0.2) Sodium Level 140 mmol/L (136-145) 142 mmol/L (136-145) Potassium Level 3.2 mmol/L (3.5-5.1) 3.1 mmol/L (3.5-5.1) Chloride Level 105 mmol/L (98-107) 106 mmol/L (98-107) Carbon Dioxide Level 23 mmol/L (21-32) 30 mmol/L (21-32) Anion Gap 12 (6-14) 6 (6-14) Blood Urea Nitrogen 11 mg/dL (8-26) 14 mg/dL (8-26) Creatinine 0.7 mg/dL (0.7-1.3) 0.8 mg/dL (0.7-1.3) Estimated GFR (Cockcroft-Gault) 113.5 97.3 Glucose Level 84 mg/dL (70-99) 105 mg/dL (70-99) Calcium Level 8.4 mg/dL (8.5-10.1) 8.3 mg/dL (8.5-10.1) Magnesium Level 1.6 mg/dL (1.8-2.4) Laboratory Tests Test 01/31/19 08:10 White Blood Count 12.4 x10^3/uL (4.0-11.0) Red Blood Count 3.75 x10^6/uL (4.30-5.70) Hemoglobin 11.9 g/dL (13.0-17.5) Hematocrit 34.2 % (39.0-53.0) Mean Corpuscular Volume 91 fL (79-100) Mean Corpuscular Hemoglobin 32 pg (25-35) Mean Corpuscular Hemoglobin Concent 35 g/dL (31-37) Red Cell Distribution Width 13.0 % (11.5-14.5) Platelet Count 160 x10^3/uL (140-400) Neutrophils (%) (Auto) 79 % (31-73) Lymphocytes (%) (Auto) 7 % (24-48) Monocytes (%) (Auto) 12 % (0-9) Eosinophils (%) (Auto) 1 % (0-3) Basophils (%) (Auto) 1 % (0-3) Neutrophils # (Auto) 9.8 x10^3/uL (1.8-7.7) Lymphocytes # (Auto) 0.9 x10^3/uL (1.0-4.8) Monocytes # (Auto) 1.5 x10^3/uL (0.0-1.1) Eosinophils # (Auto) 0.2 x10^3/uL (0.0-0.7) Basophils # (Auto) 0.1 x10^3/uL (0.0-0.2) Sodium Level 142 mmol/L (136-145) Potassium Level 3.1 mmol/L (3.5-5.1) Chloride Level 106 mmol/L (98-107) Carbon Dioxide Level 30 mmol/L (21-32) Anion Gap 6 (6-14) Blood Urea Nitrogen 14 mg/dL (8-26) Creatinine 0.8 mg/dL (0.7-1.3) Estimated GFR (Cockcroft-Gault) 97.3 Glucose Level 105 mg/dL (70-99) Calcium Level 8.3 mg/dL (8.5-10.1) Comments cxr 01/30 Similar aeration of the left lung with increase interstitial changes in the right suprahilar distribution. Consideration may be given for worsening congestive heart failure or pulmonary infiltrate. Impression . 1. Acute respiratory failure secondary to [id number] cardiopulmonary arrest. 2. [id number] cardiopulmonary arrest. 3. Ventricular fibrillation. 4. Coronary artery disease. 5. Ischemic cardiomyopathy with ejection fraction of 30-35%. 6. Status post stent placement to the left circumflex. 7. [id number] diastolic/ systolic heart failure. 8. Possible pneumonia/aspiration. 9. Left traumatic pneumothorax.S/P CHEST TUBE , REMOVED BY PT 01/29. NO PTX 10. Elevated liver chemistries. 11. Acute renal failure. 12. Hypothyroidism. 13. Tobacco dependent. 14. Positive drug screen. Plan . EXTUBATED 01/27 CXR NO PTX BUT CHF/ LEFT EFFUSION/ DIURESIS YESTERDAY EXTRA LASIX ( EF 30%) D/W RN ANTIBX PER ID FOLLOW CARD INPUT FEEL BETTER OK WITH DC TO SKILL JUDITH SCHAFER MD Jan 31, 2019 11:53
[2019-01-31] MEDS ORDERED: POTASSIUM BICARB 20 MEQ EFFERVESCENT TABLET. PO ONE ×2 (12:15→19:30)
--- NOTE | 2019-01-31 12:27 | PDOC ---
CARDIO Progress Notes Date and Time Date of Service 01/31/2019 Time of Evaluation 1200 Subjective Subjective: No Chest Pain, No shortness of breath, No Palpitations Vitals Vitals Vital Signs Date Time Temp Pulse Resp B/P (MAP) Pulse Ox O2 Delivery O2 Flow Rate FiO2 01/31/19 11:51 97.9 68 18 110/67 (81) 94 Nasal Cannula 2.0 97.9 Weight Weight [ ] Input and Output Intake and Output Intake and Output0 01/31/19 07:00 Intake Total 725 ml Balance 725 ml Intake Oral 100 ml IV Total 525 ml Tube Feeding 100 ml # Voids 5 # Bowel Movements 3 Laboratory Labs Laboratory Tests Test 01/31/19 08:10 White Blood Count 12.4 x10^3/uL (4.0-11.0) Red Blood Count 3.75 x10^6/uL (4.30-5.70) Hemoglobin 11.9 g/dL (13.0-17.5) Hematocrit 34.2 % (39.0-53.0) Mean Corpuscular Volume 91 fL (79-100) Mean Corpuscular Hemoglobin 32 pg (25-35) Mean Corpuscular Hemoglobin Concent 35 g/dL (31-37) Red Cell Distribution Width 13.0 % (11.5-14.5) Platelet Count 160 x10^3/uL (140-400) Neutrophils (%) (Auto) 79 % (31-73) Lymphocytes (%) (Auto) 7 % (24-48) Monocytes (%) (Auto) 12 % (0-9) Eosinophils (%) (Auto) 1 % (0-3) Basophils (%) (Auto) 1 % (0-3) Neutrophils # (Auto) 9.8 x10^3/uL (1.8-7.7) Lymphocytes # (Auto) 0.9 x10^3/uL (1.0-4.8) Monocytes # (Auto) 1.5 x10^3/uL (0.0-1.1) Eosinophils # (Auto) 0.2 x10^3/uL (0.0-0.7) Basophils # (Auto) 0.1 x10^3/uL (0.0-0.2) Sodium Level 142 mmol/L (136-145) Potassium Level 3.1 mmol/L (3.5-5.1) Chloride Level 106 mmol/L (98-107) Carbon Dioxide Level 30 mmol/L (21-32) Anion Gap 6 (6-14) Blood Urea Nitrogen 14 mg/dL (8-26) Creatinine 0.8 mg/dL (0.7-1.3) Estimated GFR (Cockcroft-Gault) 97.3 Glucose Level 105 mg/dL (70-99) Calcium Level 8.3 mg/dL (8.5-10.1) Microbiology Micro Microbiology 01/24/19 - Final, Complete 01/24/19 - Final, Complete 01/24/19 - Final, Complete 01/24/19 - Final, Complete 01/24/19 Gram Stain Evaluation - Final, Complete 01/24/19 Sputum Culture - Final, Complete 01/24/19 Sputum Result 1 - Final, Complete 01/23/19 Blood Culture - Final, Complete NO GROWTH AFTER 5 DAYS Physical Exam HEENT: Neck Supple W Full Motion Chest: Symmetric LUNGS: Other (diminished bases) Heart: S1S2, RRR (SR) Abdomen: Soft N/T Extremities: No Edema Neurology: alert, oriented, follow commands Assessment Assessment 1. Vfib OOH arrest: culprit is occluded LCx S/P 3 stents. 2. CAD: new as above 3. ICM: EF 30-35% 4. Acute diastolic/systolic CHF: compensated 5. Acute respiratory failure with combination of CHF and pneumonia.doing well. 6. Left apical pneumothorax/nondisplaced rib fractures: due to automatic CPR device device en route 7. Sepsis: ID following. Better. 8 Hypothyroidism: Defer to PCP new. TSH 10. Will need replacement defer to PCP 9. Tobaccoism 10. Substance abuse: UDS+ marijuana 11. Sinus bradycardia: no further VTs. No pauses, maintaining SR 12. Encephalopathy: multifactorial. Mentation back to baseline Recommendations 1. ASA/ plavix. Statin 2. Amiodarone and toprol. Lasix therapy with K replacement. 3. Lisinopril. Will consider entresto as an outpt. 4. Cardiac rehab. Possible SNU today 5. Lifevest, will reeval in 3 mo for AICD consideration. 6. Smoking cessation [employer] Jan 31, 2019 12:27
--- NOTE | 2019-01-31 12:43 | NUR ---
SS following up with discharge planning. Pt accepted at [facility] pending insurance authorization. Pt receiving life vest today. SS will await insurance determination and will proceed accordingly with discharge planning.
[2019-01-31] MEDS ORDERED: FUROSEMIDE 40 MG TABLET. PO SCH (13:00)
[2019-01-31] MEDS ORDERED: METOPROLOL SUCC 24HR ER 100 MG TAB.ER.24H. PO SCH (13:00)
[2019-01-31 14:04] VITALS: BP 114/68
--- NOTE | 2019-01-31 14:06 | PDOC ---
PROGRESS NOTES Assessment Assessment Anoxia/hypoxia/metabolic encephalopathy. S/P cardiac arrest, downtime estimated on and off for 33 minutes. CAD with LCX occlusion, s/p stents placement. Respiratory failure. Hypokalemia, K+ 2.8 CHF, EF 30-35%. Lactic acidosis. Leukocytosis. Pulmonary infiltrate. Hepatic injury. Renal failure. Hematuria. Rib and sternum fracture. RECOMMENDATIONS/PLAN: Treat medical and cardiac diseases. OT/PT. Discussed with his at bedside on 01/31/19. PAST MEDICAL HISTORY Cardiovascular: HTN? Pulmonary: Asthma. Smoking. CENTRAL NERVOUS SYSTEM: No pertinent history. GI: Other (inguinal hernia) Heme/Onc: No pertinent hx Hepatobiliary: No pertinent hx Psych: No pertinent hx Musculoskeletal: Osteoarthritis Rheumatologic: No pertinent hx Infectious disease: No pertinent hx ENT: No pertinent hx Renal/: No pertinent hx Endocrine: No pertinent hx Dermatology: No pertinent hx PAST SURGICAL HISTORY Hernia Repair (left inguinal) FAMILY HISTORY Coronary Artery Disease (father) SOCIAL HISTORY Smoke: <1 pack per day ALCOHOL: none Drugs: None Lives: with Family ALLERGIES No Known Drug Allergies (Unverified , 01/23/19) MEDICATIONS: Refer to [facility] REVIEW OF SYSTEMS: Constitutional: No malnutrition, weight loss, cachexia. Head: No recent traumatic brain or head injury. Skin: No edema, or rash. Ear: No infection, tinnitus. Eyes: No vision loss or color blindness. Nose: No bleeding or purulent discharges. Hearing: No hearing decrease. Neck: No injury. Cardiac: No KS, arrhythmia,claudication. Pulmonary: Smoking.. GI: No GI ulcer, GI bleeding. Urinary/genital: No dysuria, incontinence, urinary retention. Endocrinologic: No cousin face, craniofacial dysmorphism, polydactyly. Skeletomuscular: No muscular atrophy, deformity. Neurological: see HP. Psychiatric: Denies drug use/abuse. Otherwise, not [id number] review of systems. PHYSICAL EXAMINATION: General appearance is in subacute distress. HEENT: Normocephalic and nontraumatic. Eyes, nose, ears, and throat are unremarkable. Neck is supple. No lymphadenopathy. No crepitus. Cardiovascular: S1, S2. Pulmonary: On vent. Abdomen: Bowel sounds are positive. Extremities: No rash, lesions, or edema. NEUROLOGICAL EXAMINATION: Awake. Oriented to time, place and person. PERRL. EOMI. CN: no focal findings. Muscle tone: WNL.. Muscle strength: 4. DTR: 1-2 Plantar reflex: Neutral response bilaterally Gait: Able to walk with a walker. Sensory exam: No acute findings. No cerebellar signs elicited F-T-N test fine. Objective Objective Vital Signs Date Time Temp Pulse Resp B/P (MAP) Pulse Ox O2 Delivery O2 Flow Rate FiO2 01/31/19 13:18 68 110/67 01/31/19 11:51 97.9 18 94 Nasal Cannula 2.0 97.9 Intake and Output 01/31/19 07:00 Intake Total 725 ml Balance 725 ml Intake Oral 100 ml IV Total 525 ml Tube Feeding 100 ml # Voids 5 # Bowel Movements 3 Vitals Signs Vitals VS - Last 72 Hours, by Label Date Time Temp Pulse Resp B/P (MAP) Pulse Ox O2 Delivery O2 Flow Rate FiO2 01/31/19 13:18 68 110/67 01/31/19 11:51 97.9 68 18 110/67 (81) 94 Nasal Cannula 2.0 97.9 01/31/19 09:07 76 151/92 01/31/19 09:07 76 151/92 01/31/19 09:07 76 151/92 01/31/19 08:00 Nasal Cannula 2.0 01/31/19 07:00 97.7 76 20 151/92 (111) 96 Nasal Cannula 2.0 97.7 01/31/19 05:14 18 95 Nasal Cannula 2.0 01/31/19 04:05 18 95 Nasal Cannula 2.0 01/31/19 03:50 98.2 71 20 151/89 (109) 95 Nasal Cannula 2.0 98.2 01/30/19 22:50 97.5 64 20 151/94 (113) 95 Nasal Cannula 2.0 97.5 01/30/19 21:01 76 120/78 01/30/19 20:00 Nasal Cannula 2.0 01/30/19 19:20 98.4 76 18 120/78 (92) 94 Nasal Cannula 2.0 98.4 01/30/19 15:00 97.5 72 22 128/74 (92) 96 Nasal Cannula 2.0 97.5 01/30/19 11:08 75 143/95 01/30/19 11:08 75 150/88 01/30/19 11:08 130 143/95 01/30/19 11:00 97.5 72 22 150/88 (108) 93 Nasal Cannula 2.0 97.5 01/30/19 08:00 Nasal Cannula 2.0 01/30/19 07:00 98.1 130 22 143/95 (111) 98 Nasal Cannula 2.0 98.1 Laboratory Laboratory Laboratory Tests Test 01/31/19 08:10 White Blood Count 12.4 x10^3/uL (4.0-11.0) Red Blood Count 3.75 x10^6/uL (4.30-5.70) Hemoglobin 11.9 g/dL (13.0-17.5) Hematocrit 34.2 % (39.0-53.0) Mean Corpuscular Volume 91 fL (79-100) Mean Corpuscular Hemoglobin 32 pg (25-35) Mean Corpuscular Hemoglobin Concent 35 g/dL (31-37) Red Cell Distribution Width 13.0 % (11.5-14.5) Platelet Count 160 x10^3/uL (140-400) Neutrophils (%) (Auto) 79 % (31-73) Lymphocytes (%) (Auto) 7 % (24-48) Monocytes (%) (Auto) 12 % (0-9) Eosinophils (%) (Auto) 1 % (0-3) Basophils (%) (Auto) 1 % (0-3) Neutrophils # (Auto) 9.8 x10^3/uL (1.8-7.7) Lymphocytes # (Auto) 0.9 x10^3/uL (1.0-4.8) Monocytes # (Auto) 1.5 x10^3/uL (0.0-1.1) Eosinophils # (Auto) 0.2 x10^3/uL (0.0-0.7) Basophils # (Auto) 0.1 x10^3/uL (0.0-0.2) Sodium Level 142 mmol/L (136-145) Potassium Level 3.1 mmol/L (3.5-5.1) Chloride Level 106 mmol/L (98-107) Carbon Dioxide Level 30 mmol/L (21-32) Anion Gap 6 (6-14) Blood Urea Nitrogen 14 mg/dL (8-26) Creatinine 0.8 mg/dL (0.7-1.3) Estimated GFR (Cockcroft-Gault) 97.3 Glucose Level 105 mg/dL (70-99) Calcium Level 8.3 mg/dL (8.5-10.1) Magnesium Level 1.9 mg/dL (1.8-2.4) Microbiology 01/24/19 - Final, Complete 01/24/19 - Final, Complete 01/24/19 - Final, Complete 01/24/19 - Final, Complete 01/24/19 Gram Stain Evaluation - Final, Complete 01/24/19 Sputum Culture - Final, Complete 01/24/19 Sputum Result 1 - Final, Complete 01/23/19 Blood Culture - Final, Complete NO GROWTH AFTER 5 DAYS Medication Medications Current Medications Amoxicillin/ Clavulanate Potassium (Augmentin 875/ 125mg) 1 tab BID PO Last administered on 01/31/19at 09:20; Start 01/31/19 at 09:00 Doxycycline Hyclate (Vibra-Tab) 100 mg BID PO Last administered on 01/30/19at 21:01; Start 01/30/19 at 21:00; Stop 01/31/19 at 08:57; Status DC Furosemide (Lasix) 40 mg DAILY PO Last administered on 01/31/19at 13:18; Start 01/31/19 at 13:00 Lactobacillus Rhamnosus (Culturelle) 1 cap BID PO Last administered on 01/31/19at 09:07; Start 01/30/19 at 21:00 Magnesium Sulfate 50 ml @ 25 mls/hr 1X ONCE IV Last administered on 01/30/19at 16:02; Start 01/30/19 at 16:15; Stop 01/30/19 at 18:14; Status DC Metoprolol Succinate (Toprol Xl) 100 mg DAILY PO Last administered on 01/31/19at 13:18; Start 01/31/19 at 13:00 Metoprolol Tartrate (Lopressor) 50 mg BID PO Last administered on 01/31/19at 09:07; Start 01/30/19 at 21:00; Stop 01/31/19 at 12:19; Status DC Pantoprazole Sodium (Protonix) 40 mg DAILYAC PO ; Start 01/31/19 at 07:30 Potassium Bicarbonate (Potassium Effervescent Tablet) 20 meq DAILY PEG ; Start 02/01/19 at 09:00 Potassium Bicarbonate (Potassium Effervescent Tablet) 40 meq 1X ONCE PO Last administered on 01/31/19at 13:18; Start 01/31/19 at 12:15; Stop 01/31/19 at 12:21; Status DC Comment Review of Relevant I have reviewed the following items yadi (where applicable) has been applied. ARMANDO MAHONEY MD Jan 31, 2019 14:06
--- NOTE | 2019-01-31 15:53 | PDOC3 ---
Discharge Summary Date of Admission: Jan 23, 2019 Date of Discharge: Jan 31, 2019 Follow-Up: 1-2 days Admitting Diagnosis comment: DISCHARGE DX CAD s/p stat PCI/LHC with stents to left circ (x 3 stents) EXTUBATED 01/27/19 s/p out of hospital cardiac arrest, V Fib with ROSC after 33 mins CPR and 5 defibrillations given Post intubation APICAL PTX s/p chest tube (01/24) Respi failure sec to above # 1 on IPPV Asthma SIRS sec to # 1, no infection REactive leukocytosis hypokalemia, 2,8 ON REPLACEMENT HYPERmagnesemia 2.7 MARIANNE post code Anoxia/hypoxia/metabolic encephalopathy. [employer], will reeval in 3 mo for AICD consideration. 33MIN PT EXAM, CHART REVIEW D/C PLANNING , > 50% OF TIME SPENT WITH EXAM, CHART REVIEW, PT CARE COORDINATION History of Present Illness History of Present Illness extubated 01/27 after 5 days intubation for cardiac arrest s.p hypothermia protocol Passed swallow! dysphagia diet SNu in the works, dw SW and family and RN K 3.2 Anxiety - can have more ativan PLAN: SNu on the works mar PTOT SW - FULL CODE chest tube to dc inc ativan to 2 mgs Restart PO ,meds cont flomax, oxybutynin Vitals Vitals Vital Signs Date Time Temp Pulse Resp B/P (MAP) Pulse Ox O2 Delivery O2 Flow Rate FiO2 01/31/19 09:07 76 151/92 01/31/19 08:00 Nasal Cannula 2.0 01/31/19 07:00 97.7 20 96 97.7 Physical Exam Physical Exam GENERAL: Propped up in bed, awake, smiling HEENT: Oral cavity pink, moist NECK: Supple. LUNGS: Decreased at bases. Left chest tube out HEART: S1, S2. ABDOMEN: Minimally distended, nontender, soft + BS bowel sounds. He has a well-approximated incision in the left lower quadrant. GENITOURINARY: العلي EXTREMITIES: No clubbing or cyanosis. No gross edema. SKIN: Warm to touch without signs of rash. NEUROLOGICAL: Responding appropriately PIV General: mild distress Heart: Regular rate Lungs: Other (decrease base) Abdomen: Normal bowel sounds Extremities: No clubbing, No cyanosis, No edema, Normal pulses Skin: No breakdown, No significant lesion Labs LABS INDICATION: Respiratory failure COMPARISON: 01/30/2019 TECHNIQUE: Portable frontal view of the chest is provided. FINDINGS: The cardiomediastinal silhouette is similar in appearance. Small left pleural effusion with adjacent compressive atelectasis versus infiltrate. Mild pulmonary vascular congestion appears stable. Mild bilateral hilar prominence, stable. There is patchy consolidative change in the right suprahilar region. Finding is stable. No pneumothorax. IMPRESSION: Aeration of the lungs appears similar to the prior examination. Electronically signed by: Renetta Rodriguez MD (01/31/2019 9:28 AM) d/c planning 32 min FINAL DIAGNOSIS Problems Medical Problems: (1) Cardiorespiratory arrest Status: Acute (2) Elevated liver function tests Status: Acute (3) Elevated troponin Status: Acute (4) Hyperglycemia Status: Acute (5) Hypokalemia Status: Acute (6) Metabolic acidosis Status: Acute (7) Renal insufficiency Status: Acute (8) Ribs, multiple fractures Status: Acute (9) Severe sepsis Status: Acute (10) STEMI (ST elevation myocardial infarction) Status: Acute (11) Traumatic pneumothorax Status: Acute Brief Hospital Course Mr. Agrawal is a 63 old [sex] who presented with [CODE BLUE/ CODE ICE ] CONDITION AT DISCHARGE: Improved Discharge Medications Current Medications Sodium Chloride 1,000 ml @ 1,000 mls/hr Q1H IV Last administered on 01/23/19at 17:23; Start 01/23/19 at 15:13; Stop 01/23/19 at 16:12; Status DC Sodium Bicarbonate (Sodium Bicarb Adult 8.4% Syr) 100 meq 1X ONCE IV Last administered on 01/23/19at 17:23; Start 01/23/19 at 15:30; Stop 01/23/19 at 15:59; Status DC Midazolam HCl (Versed) 5 mg STK-MED ONCE .ROUTE ; Start 01/23/19 at 15:25; Stop 01/23/19 at 15:25; Status DC Propofol 50 ml @ As Directed STK-MED ONCE IV ; Start 01/23/19 at 15:25; Stop 01/23/19 at 15:25; Status DC Calcium Gluconate (Calcium Gluconate) 1,000 mg 1X ONCE IVP Last administered on 01/23/19at 16:12; Start 01/23/19 at 16:00; Stop 01/23/19 at 16:01; Status DC Dextrose (Dextrose 50%-Water Syringe) 25 gm 1X ONCE IV ; Start 01/23/19 at 15:45; Stop 01/23/19 at 15:53; Status DC Insulin Human Regular (HumuLIN R VIAL) 10 unit 1X ONCE IV ; Start 01/23/19 at 15:45; Stop 01/23/19 at 15:53; Status DC Iohexol (Omnipaque 350 Mg/ml) 90 ml 1X ONCE IV Last administered on 01/23/19at 16:08; Start 01/23/19 at 15:45; Stop 01/23/19 at 16:00; Status DC Amiodarone HCl 900 mg/Dextrose 518 ml @ 0 mls/hr CONT PRN IV SEE I/O RECORD Last administered on 01/23/19at 17:06; Start 01/23/19 at 16:00; Stop 01/23/19 at 17:06; Status DC Piperacillin Sod/ Tazobactam Sod 3.375 gm/Sodium Chloride 50 ml @ 100 mls/hr 1X ONCE IV Last administered on 01/23/19at 22:19; Start 01/23/19 at 16:00; Stop 01/23/19 at 16:29; Status DC Vancomycin HCl 250 ml @ 250 mls/hr 1X ONCE IV ; Start 01/23/19 at 16:00; Stop 01/23/19 at 16:24; Status DC Fentanyl Citrate (Fentanyl 2ml Vial) 100 mcg 1X ONCE IV ; Start 01/23/19 at 16:15; Stop 01/23/19 at 16:24; Status DC Midazolam HCl (Versed) 2 mg 1X ONCE IV ; Start 01/23/19 at 16:15; Stop 01/23/19 at 16:24; Status DC Magnesium Sulfate/ Dextrose 100 ml @ 100 mls/hr 1X ONCE IV ; Start 01/23/19 at 16:15; Stop 01/23/19 at 17:14; Status DC Buspirone HCl (Buspar) 30 mg Q8H NG Last administered on 01/25/19at 08:47; Start 01/23/19 at 17:00; Stop 01/25/19 at 09:01; Status DC Acetaminophen (Tylenol) 650 mg Q4H NG Last administered on 01/25/19at 11:11; Start 01/23/19 at 16:15; Stop 01/26/19 at 01:00; Status DC Artificial Tears (Artificial Tears) 1 drop Q6HRS OU Last administered on 01/25/19at 23:53; Start 01/23/19 at 18:00; Stop 01/26/19 at 01:00; Status DC Artificial Tears (Artificial Tears) 1 drop PRN Q15MIN PRN OU DRY EYE; Start 01/23/19 at 16:15; Stop 01/26/19 at 01:00; Status DC Heparin Sodium (Porcine) (Heparin Sodium) 5,000 unit BID SQ ; Start 01/23/19 at 21:00; Stop 01/23/19 at 16:53; Status DC Pantoprazole Sodium (PROTONIX VIAL for IV PUSH) 40 mg DAILY IVP ; Start 01/24/19 at 09:00; Stop 01/23/19 at 20:27; Status DC Fentanyl Citrate 30 ml @ 0 mls/hr CONT PRN IV PER PROTOCOL.; Start 01/23/19 at 16:15; Stop 01/23/19 at 18:01; Status DC Propofol 100 ml @ 0 mls/hr CONT PRN IV PER PROTOCOL.; Start 01/23/19 at 16:15; Stop 01/23/19 at 20:27; Status DC Midazolam HCl 100 ml @ 0 mls/hr CONT PRN IV PER PROTOCOL. Last administered on 01/23/19at 16:50; Start 01/23/19 at 16:15; Stop 01/23/19 at 20:26; Status DC Vecuronium Aydlett (Norcuron Bolus) 7 mg PRN Q1HR PRN IV SHIVERING; Start 01/23/19 at 16:15; Stop 01/23/19 at 20:28; Status DC Pantoprazole Sodium (PROTONIX VIAL for IV PUSH) 40 mg DAILYAC IVP ; Start 01/24/19 at 07:30; Stop 01/23/19 at 16:25; Status DC Pantoprazole Sodium (PROTONIX VIAL for IV PUSH) 40 mg 1X ONCE IVP Last administered on 01/23/19at 23:43; Start 01/23/19 at 17:00; Stop 01/23/19 at 17:01; Status DC Enoxaparin Sodium (Lovenox 40mg Syringe) 40 mg Q24H SQ ; Start 01/23/19 at 21:00; Stop 01/23/19 at 23:59; Status DC Sodium Chloride 1,000 ml @ 150 mls/hr Q6H40M IV Last administered on 01/24/19at 04:43; Start 01/23/19 at 16:11; Stop 01/24/19 at 11:40; Status DC Potassium Chloride/Water 100 ml @ 100 mls/hr Q1H IV Last administered on 01/23/19at 19:06; Start 01/23/19 at 17:00; Stop 01/23/19 at 20:59; Status DC Potassium Chloride/Water 100 ml @ 100 mls/hr Q1H IV ; Start 01/23/19 at 22:00; Stop 01/23/19 at 23:59; Status DC Vancomycin HCl 1.75 gm/Sodium Chloride 500 ml @ 250 mls/hr 1X ONCE IV Last administered on 01/23/19at 23:42; Start 01/23/19 at 18:00; Stop 01/23/19 at 19:59; Status DC Aspirin (Aspirin Rectal Supp) 300 mg 1X ONCE [place] Last administered on 01/23/19at 20:27; Start 01/23/19 at 17:00; Stop 01/23/19 at 17:01; Status DC Lidocaine HCl (Lidocaine 1% 20ml Vial) 20 ml STK-MED ONCE .ROUTE ; Start 01/23/19 at 16:37; Stop 01/23/19 at 16:37; Status DC Heparin Sodium/ Sodium Chloride 1,000 ml @ As Directed STK-MED ONCE .ROUTE ; Start 01/23/19 at 16:37; Stop 01/23/19 at 16:38; Status DC Heparin Sodium/ Dextrose 500 ml @ 0 mls/hr CONT PRN IV SEE I/O RECORD; Start 01/23/19 at 17:00; Stop 01/23/19 at 23:27; Status DC Midazolam HCl (Versed) 5 mg STK-MED ONCE .ROUTE ; Start 01/23/19 at 17:00; Stop 01/23/19 at 17:00; Status DC Sodium Chloride 1,000 ml @ 1,000 mls/hr 1X ONCE IV Last administered on 01/23/19at 18:58; Start 01/23/19 at 17:30; Stop 01/23/19 at 18:29; Status DC Propofol 50 ml @ 2.1 mls/hr 1X STAT IV Last administered on 01/23/19at 18:51; Start 01/23/19 at 17:17; Stop 01/23/19 at 20:27; Status DC Midazolam HCl (Versed) 5 mg 1X ONCE IV Last administered on 01/23/19at 18:18; Start 01/23/19 at 17:30; Stop 01/23/19 at 17:31; Status DC Fentanyl Citrate 30 ml @ 0 mls/hr CONT PRN PRN IV PER PROTOCOL; Start 01/23/19 at 17:45; Status Cancel Naloxone HCl (Narcan) 0.4 mg PRN Q2MIN PRN IV SEE INSTRUCTIONS; Start 01/23/19 at 17:45 Sodium Chloride 1,000 ml @ 25 mls/hr Q24H IV Last administered on 01/26/19at 15:11; Start 01/23/19 at 17:33; Stop 01/30/19 at 13:34; Status DC Midazolam HCl (Versed) 5 mg 1X ONCE IV Last administered on 01/23/19at 19:02; Start 01/23/19 at 18:15; Stop 01/23/19 at 18:16; Status DC Amiodarone HCl (Cordarone) 150 mg STK-MED ONCE .ROUTE ; Start 01/23/19 at 18:11; Stop 01/23/19 at 18:12; Status DC Iodixanol (Visipaque 320) 100 ml STK-MED ONCE .ROUTE ; Start 01/23/19 at 18:19; Stop 01/23/19 at 18:19; Status DC Bivalirudin (Angiomax) 250 mg STK-MED ONCE IV ; Start 01/23/19 at 18:20; Stop at 18:20; Status DC Nitroglycerin (Nitroglycerin) 200 mcg 1X ONCE IART Last administered on 01/23/19at 19:10; Start 01/23/19 at 18:45; Stop 01/23/19 at 18:56; Status DC Heparin Sodium/ Sodium Chloride (HEPARIN for ARTERIAL LINE FLUSH) 1,000 unit 1X ONCE IART Last administered on 01/23/19at 19:10; Start 01/23/19 at 18:45; Stop 01/23/19 at 18:56; Status DC Heparin Sodium/ Sodium Chloride (HEPARIN for ARTERIAL LINE FLUSH) 1,000 unit 1X ONCE IART Last administered on 01/23/19 19:10; Start 01/23/19 at 18:45; Stop 01/23/19 at 18:56; Status DC Iodixanol (Visipaque 320) 100 ml 1X ONCE IART Last administered on 01/23/19 19:10; Start 01/23/19 at 18:45; Stop 01/23/19 at 18:56; Status DC Bivalirudin (Angiomax) 250 mg 1X ONCE IV Last administered on 01/23/19 19:10; Start 01/23/19 at 18:45; Stop 01/23/19 at 18:56; Status DC Lidocaine HCl (Lidocaine 1% 20ml Vial) 10 ml 1X ONCE INJ Last administered on 01/23/19 19:10; Start 01/23/19 at 18:45; Stop 01/23/19 at 18:56; Status DC Amiodarone HCl 150 mg/Dextrose 103 ml @ 0 mls/hr 1X ONCE IV Last administered on 01/23/19 19:10; Start 01/23/19 at 19:00; Stop 01/23/19 at 19:01; Status DC Info (CONTRAST GIVEN -- Rx MONITORING) 1 each PRN DAILY PRN MC SEE COMMENTS; Start 01/23/19 at 19:00; Stop 01/25/19 at 18:59; Status DC Heparin Sodium/ Sodium Chloride 500 ml @ As Directed STK-MED ONCE .ROUTE ; Start 01/23/19 at 19:02; Stop 01/23/19 at 19:03; Status DC Sodium Chloride (Normal Saline Flush) 3 ml QSHIFT PRN IV AFTER MEDS AND BLOOD DRAWS; Start 01/23/19 at 19:30 Sodium Chloride 1,000 ml @ 75 mls/hr [id number] IV Last administered on 01/23/19at 20:27; Start 01/23/19 at 19:17; Stop 01/24/19 at 03:16; Status DC Aspirin (Ecotrin) 325 mg DAILYWBKFT PO Last administered on 01/31/19at 09:07; Start 01/24/19 at 08:00 Clopidogrel Bisulfate (Plavix) 75 mg DAILYWBKFT PO Last administered on 01/31/19at 09:07; Start 01/24/19 at 08:00 Acetaminophen (Tylenol) 650 mg PRN Q6HRS PRN PO MILD PAIN / TEMP Last administered on 01/27/19at 11:01; Start 01/23/19 at 19:30 Fentanyl Citrate (Fentanyl 2ml Vial) 50 mcg PRN Q1HR PRN IV MODERATE OR SEVERE PAIN; Start 01/23/19 at 19:30; Stop 01/26/19 at 00:59; Status DC Nitroglycerin (Nitrostat) 0.4 mg PRN Q5MIN PRN SL CHEST PAIN; Start 01/23/19 at 19:30 Amiodarone HCl 150 mg/Dextrose 103 ml @ 600 mls/hr 1X PRN PRN IV FOR VENTRICULAR TACHYCARDIA; Start 01/23/19 at 19:30 Lidocaine HCl (Lidocaine HCl 2% Abboject) 100 mg 1X PRN PRN IV FOR VENTRICULAR TACHYCARDIA; Start 01/23/19 at 19:30 Atropine Sulfate (ATROPINE 0.5mg SYRINGE) 0.5 mg PRN 1X PRN IV BRADYCARDIA; Start 01/23/19 at 19:30 Fentanyl Citrate (Fentanyl 2ml Vial) 100 mcg 1X ONCE IV Last administered on at 20:27; Start 01/23/19 at 19:45; Stop 01/23/19 at 20:25; Status DC Midazolam HCl (Versed) 2 mg 1X ONCE IV ; Start 01/23/19 at 19:45; Stop 01/23/19 at 20:25; Status DC Magnesium Sulfate/ Dextrose 100 ml @ 100 mls/hr 1X ONCE IV Last administered on 01/23/19at 20:46; Start 01/23/19 at 19:45; Stop 01/23/19 at 20:44; Status DC Heparin Sodium (Porcine) (Heparin Sodium) 5,000 unit BID SQ Last administered on 01/31/19at 09:20; Start 01/23/19 at 21:00 Pantoprazole Sodium (PROTONIX VIAL for IV PUSH) 40 mg DAILY IVP Last administered on 01/27/19at 08:06; Start 01/24/19 at 09:00; Stop 01/28/19 at 10:09; Status DC Fentanyl Citrate 30 ml @ 0 mls/hr CONT PRN IV PER PROTOCOL. Last administered on 01/25/19at 16:54; Start 01/23/19 at 19:45; Stop 01/26/19 at 01:00; Status DC Propofol 100 ml @ 0 mls/hr CONT PRN IV PER PROTOCOL.; Start 01/23/19 at 19:45; Stop 01/26/19 at 01:00; Status DC Midazolam HCl 100 ml @ 0 mls/hr CONT PRN IV PER PROTOCOL. Last administered on 01/25/19at 23:11; Start 01/23/19 at 19:45; Stop 01/26/19 at 01:00; Status DC Vecuronium Aydlett (Norcuron Bolus) 7 mg PRN Q1HR PRN IV SHIVERING Last administered on 01/24/19at 21:19; Start 01/23/19 at 19:45; Stop 01/28/19 at 09:12; Status DC Norepinephrine Bitartrate 250 ml @ 13.608 mls/ hr CONT PRN IV SEE I/O RECORD; Start 01/23/19 at 20:45; Stop 01/28/19 at 09:12; Status DC Sodium Chloride 500 ml @ 500 mls/hr 1X ONCE IV Last administered on 01/23/19at 20:57; Start 01/23/19 at 20:45; Stop 01/23/19 at 21:44; Status DC Daptomycin 440 mg/ Sodium Chloride 50 ml @ 100 mls/hr Q24H IV Last administered on 01/25/19at 23:11; Start 01/23/19 at 23:00; Stop 01/26/19 at 07:52; Status DC Linezolid/Dextrose 300 ml @ 300 mls/hr Q12HR IV Last administered on 01/25/19at 21:03; Start 01/24/19 at 09:00; Stop 01/26/19 at 07:52; Status DC Doxycycline Hyclate 100 mg/ Dextrose 100 ml @ 50 mls/hr Q12HR IV Last administered on 01/30/19at 09:19; Start 01/24/19 at 09:00; Stop 01/30/19 at 11:53; Status DC Doxycycline Hyclate 100 mg/ Dextrose 100 ml @ 50 mls/hr 1X ONCE IV Last administered on 01/23/19at 23:42; Start 01/23/19 at 23:30; Stop 01/24/19 at 01:29; Status DC Linezolid/Dextrose 300 ml @ 300 mls/hr ONCE ONCE IV Last administered on 01/23/19at 23:42; Start 01/23/19 at 23:00; Stop 01/23/19 at 23:59; Status DC Insulin Human Regular 150 unit/ Sodium Chloride 151.5 ml @ 0 mls/hr CONT PRN IV SEE I/O RECORD; Start 01/23/19 at 23:15; Stop 01/26/19 at 08:41; Status DC Magnesium Sulfate 50 ml @ 25 mls/hr 1X ONCE IV Last administered on 01/24/19at 08:29; Start 01/24/19 at 06:45; Stop 01/24/19 at 08:44; Status DC Piperacillin Sod/ Tazobactam Sod 3.375 gm/Sodium Chloride 50 ml @ 100 mls/hr Q6HRS IV Last administered on 01/31/19at 05:30; Start 01/24/19 at 08:00; Stop 01/31/19 at 08:57; Status DC Atorvastatin Calcium (Lipitor) 20 mg QHS PO Last administered on 01/30/19at 21:01; Start 01/24/19 at 21:00 Sodium Chloride 1,000 ml @ 100 mls/hr Q10H IV Last administered on 01/30/19at 09:19; Start 01/24/19 at 11:45; Stop 01/30/19 at 11:53; Status DC Amiodarone HCl 900 mg/Dextrose 518 ml @ 17 mls/hr 30H29M IV ; Start 01/24/19 at 15:00; Status Cancel Magnesium Sulfate/ Dextrose 100 ml @ 100 mls/hr 1X ONCE IV Last administered on 01/24/19at 13:52; Start 01/24/19 at 13:30; Stop 01/24/19 at 14:29; Status DC Lidocaine/Sodium Bicarbonate (Buffered Lidocaine 1%) 3 ml STK-MED ONCE .ROUTE ; Start 01/24/19 at 15:03; Stop 01/24/19 at 15:04; Status DC Amiodarone HCl 900 mg/Dextrose 518 ml @ 33 mls/hr CONT PRN IV SEE I/O RECORD Last administered on 01/24/19at 16:09; Start 01/24/19 at 16:30; Stop 01/24/19 at 16:30; Status DC Potassium Chloride/Water 100 ml @ 100 mls/hr Q1H IV ; Start 01/25/19 at 09:00; Stop 01/25/19 at 10:06; Status DC Amiodarone HCl 450 mg/Dextrose 259 ml @ 17.267 mls/ hr CONT PRN IV SEE I/O RECORD Last administered on 01/26/19at 04:56; Start 01/25/19 at 13:15; Stop 01/26/19 at 13:47; Status DC Fentanyl Citrate 30 ml @ 0 mls/hr CONT PRN IV SEE PROTOCOL Last administered on 01/26/19at 18:46; Start 01/26/19 at 01:00; Stop 01/28/19 at 09:12; Status DC Propofol 100 ml @ 0 mls/hr CONT PRN IV SEE PROTOCOL; Start 01/26/19 at 01:00; Stop 01/28/19 at 09:12; Status DC Midazolam HCl 100 ml @ 0 mls/hr CONT PRN IV SEE PROTOCOL Last administered on 01/27/19at 02:20; Start 01/26/19 at 01:00; Stop 01/28/19 at 09:12; Status DC Lorazepam (Ativan Inj) 2 mg PRN Q4HRS PRN IV ANXIETY / AGITATION Last administered on 01/28/19at 03:56; Start 01/26/19 at 08:45; Stop 01/28/19 at 09:12; Status DC Morphine Sulfate (Morphine Sulfate) 2 mg PRN Q2HR PRN IV PAIN Last administered on 01/28/19 04:56; Start 01/26/19 at 08:45; Stop 01/28/19 at 09:12; Status DC Lisinopril (Prinivil) 2.5 mg DAILY PO Last administered on 01/31/19 09:07; Start 01/27/19 at 09:00 Metoprolol Tartrate (Lopressor) 12.5 mg BID PO Last administered on 01/30/19 11:08; Start 01/26/19 at 21:00; Stop 01/30/19 at 15:18; Status DC Amiodarone HCl (Cordarone) 400 mg DAILY PO Last administered on 01/31/19 09:07; Start 01/27/19 at 09:00 Amiodarone HCl (Cordarone) 400 mg 1X ONCE PO Last administered on 01/26/19 14:34; Start 01/26/19 at 14:15; Stop 01/26/19 at 14:16; Status DC Epinephrine HCl (EPINEPHrine SYRINGE) 1 mg STK-MED ONCE .ROUTE ; Start 01/23/19 at 14:47; Stop 01/26/19 at 14:48; Status DC Sodium Bicarbonate (Sodium Bicarb Adult 8.4% Syr) 100 meq STK-MED ONCE .ROUTE ; Start 01/23/19 at 14:47; Stop 01/26/19 at 14:48; Status DC Lorazepam (Ativan Inj) 1 mg PRN Q4HRS PRN IV ANXIETY / AGITATION Last administered on 01/30/19 01:24; Start 01/28/19 at 09:15; Stop 01/30/19 at 11:53; Status DC Morphine Sulfate (Morphine Sulfate) 1 mg PRN Q2HR PRN IV PAIN Last administered on 01/31/19 04:05; Start 01/28/19 at 09:15 Oxybutynin Chloride (Ditropan) 5 mg [id number] PO Last administered on 01/31/19 15:15; Start 01/28/19 at 10:00 Tamsulosin HCl (Flomax) 0.4 mg QHS PO Last administered on 01/30/19 21:01; Start 01/28/19 at 21:00 Famotidine (Pepcid Vial) 20 mg BID IVP Last administered on 01/30/19 09:19; Start 01/28/19 at 10:30; Stop 01/30/19 at 11:53; Status DC Labetalol HCl (Normodyne Iv Push) 10 mg PRN Q2HR PRN IVP HYPERTENSION; Start 01/29/19 at 13:00 Digoxin (Lanoxin) 0.25 mcg 1X ONCE IV Last administered on 01/29/19at 22:55; Start 01/29/19 at 23:00; Stop 01/29/19 at 23:01; Status DC Potassium Chloride (Klor-Con) 40 meq 1X ONCE PO Last administered on 01/30/19at 12:48; Start 01/30/19 at 12:30; Stop 01/30/19 at 12:31; Status DC Lorazepam (Ativan Inj) 2 mg PRN Q4HRS PRN IV ANXIETY / AGITATION Last administered on 01/31/19at 00:32; Start 01/30/19 at 12:00 Pantoprazole Sodium (Protonix) 40 mg DAILYAC PO ; Start 01/31/19 at 07:30 Doxycycline Hyclate (Vibra-Tab) 100 mg BID PO Last administered on 01/30/19at 21:01; Start 01/30/19 at 21:00; Stop 01/31/19 at 08:57; Status DC Furosemide (Lasix) 40 mg 1X ONCE IVP Last administered on 01/30/19at 12:48; Start 01/30/19 at 13:00; Stop 01/30/19 at 13:01; Status DC Lactobacillus Rhamnosus (Culturelle) 1 cap BID PO Last administered on 01/31/19at 09:07; Start 01/30/19 at 21:00 Metoprolol Tartrate (Lopressor) 50 mg BID PO Last administered on 01/31/19at 09:07; Start 01/30/19 at 21:00; Stop 01/31/19 at 12:19; Status DC Magnesium Sulfate 50 ml @ 25 mls/hr 1X ONCE IV Last administered on 01/30/19at 16:02; Start 01/30/19 at 16:15; Stop 01/30/19 at 18:14; Status DC Amoxicillin/ Clavulanate Potassium (Augmentin 875/ 125mg) 1 tab BID PO Last administered on 01/31/19at 09:20; Start 01/31/19 at 09:00 Metoprolol Succinate (Toprol Xl) 100 mg DAILY PO Last administered on 01/31/19at 13:18; Start 01/31/19 at 13:00 Potassium Bicarbonate (Potassium Effervescent Tablet) 40 meq 1X ONCE PO Last administered on 01/31/19at 13:18; Start 01/31/19 at 12:15; Stop 01/31/19 at 12:21; Status DC Furosemide (Lasix) 40 mg DAILY PO Last administered on 01/31/19at 13:18; Start 01/31/19 at 13:00 Potassium Bicarbonate (Potassium Effervescent Tablet) 20 meq DAILY PEG ; Start 9/5/19 at 09:00 Potassium Bicarbonate (Potassium Effervescent Tablet) 40 meq 1X ONCE PO ; Start 01/31/19 at 19:30; Stop 01/31/19 at 19:31 Vital Signs Vital Signs Date Time Temp Pulse Resp B/P (MAP) Pulse Ox O2 Delivery O2 Flow Rate FiO2 01/31/19 14:04 98.1 72 18 114/68 (83) 97 Nasal Cannula 2.0 98.1 Labs Laboratory Tests Test 01/30/19 09:10 01/30/19 09:20 01/31/19 08:10 White Blood Count 11.0 x10^3/uL (4.0-11.0) 12.4 x10^3/uL (4.0-11.0) Red Blood Count 4.01 x10^6/uL (4.30-5.70) 3.75 x10^6/uL (4.30-5.70) Hemoglobin 12.9 g/dL (13.0-17.5) 11.9 g/dL (13.0-17.5) Hematocrit 37.1 % (39.0-53.0) 34.2 % (39.0-53.0) Mean Corpuscular Volume 93 fL (79-100) 91 fL (79-100) Mean Corpuscular Hemoglobin 32 pg (25-35) 32 pg (25-35) Mean Corpuscular Hemoglobin Concent 35 g/dL (31-37) 35 g/dL (31-37) Red Cell Distribution Width 13.2 % (11.5-14.5) 13.0 % (11.5-14.5) Platelet Count 151 x10^3/uL (140-400) 160 x10^3/uL (140-400) Neutrophils (%) (Auto) 73 % (31-73) 79 % (31-73) Lymphocytes (%) (Auto) 10 % (24-48) 7 % (24-48) Monocytes (%) (Auto) 15 % (0-9) 12 % (0-9) Eosinophils (%) (Auto) 2 % (0-3) 1 % (0-3) Basophils (%) (Auto) 1 % (0-3) 1 % (0-3) Neutrophils # (Auto) 8.0 x10^3/uL (1.8-7.7) 9.8 x10^3/uL (1.8-7.7) Lymphocytes # (Auto) 1.1 x10^3/uL (1.0-4.8) 0.9 x10^3/uL (1.0-4.8) Monocytes # (Auto) 1.7 x10^3/uL (0.0-1.1) 1.5 x10^3/uL (0.0-1.1) Eosinophils # (Auto) 0.2 x10^3/uL (0.0-0.7) 0.2 x10^3/uL (0.0-0.7) Basophils # (Auto) 0.1 x10^3/uL (0.0-0.2) 0.1 x10^3/uL (0.0-0.2) Sodium Level 140 mmol/L (136-145) 142 mmol/L (136-145) Potassium Level 3.2 mmol/L (3.5-5.1) 3.1 mmol/L (3.5-5.1) Chloride Level 105 mmol/L (98-107) 106 mmol/L (98-107) Carbon Dioxide Level 23 mmol/L (21-32) 30 mmol/L (21-32) Anion Gap 12 (6-14) 6 (6-14) Blood Urea Nitrogen 11 mg/dL (8-26) 14 mg/dL (8-26) Creatinine 0.7 mg/dL (0.7-1.3) 0.8 mg/dL (0.7-1.3) Estimated GFR (Cockcroft-Gault) 113.5 97.3 Glucose Level 84 mg/dL (70-99) 105 mg/dL (70-99) Calcium Level 8.4 mg/dL (8.5-10.1) 8.3 mg/dL (8.5-10.1) Magnesium Level 1.6 mg/dL (1.8-2.4) 1.9 mg/dL (1.8-2.4) Laboratory Tests Test 01/31/19 08:10 White Blood Count 12.4 x10^3/uL (4.0-11.0) Red Blood Count 3.75 x10^6/uL (4.30-5.70) Hemoglobin 11.9 g/dL (13.0-17.5) Hematocrit 34.2 % (39.0-53.0) Mean Corpuscular Volume 91 fL (79-100) Mean Corpuscular Hemoglobin 32 pg (25-35) Mean Corpuscular Hemoglobin Concent 35 g/dL (31-37) Red Cell Distribution Width 13.0 % (11.5-14.5) Platelet Count 160 x10^3/uL (140-400) Neutrophils (%) (Auto) 79 % (31-73) Lymphocytes (%) (Auto) 7 % (24-48) Monocytes (%) (Auto) 12 % (0-9) Eosinophils (%) (Auto) 1 % (0-3) Basophils (%) (Auto) 1 % (0-3) Neutrophils # (Auto) 9.8 x10^3/uL (1.8-7.7) Lymphocytes # (Auto) 0.9 x10^3/uL (1.0-4.8) Monocytes # (Auto) 1.5 x10^3/uL (0.0-1.1) Eosinophils # (Auto) 0.2 x10^3/uL (0.0-0.7) Basophils # (Auto) 0.1 x10^3/uL (0.0-0.2) Sodium Level 142 mmol/L (136-145) Potassium Level 3.1 mmol/L (3.5-5.1) Chloride Level 106 mmol/L (98-107) Carbon Dioxide Level 30 mmol/L (21-32) Anion Gap 6 (6-14) Blood Urea Nitrogen 14 mg/dL (8-26) Creatinine 0.8 mg/dL (0.7-1.3) Estimated GFR (Cockcroft-Gault) 97.3 Glucose Level 105 mg/dL (70-99) Calcium Level 8.3 mg/dL (8.5-10.1) Magnesium Level 1.9 mg/dL (1.8-2.4) Allergies Allergies Coded Allergies Type Severity Reaction Last Updated Verified No Known Drug Allergies 01/23/19 No Disposition/Orders: Other (d/c TO [facility]) Patient Instructions D/C PLANNING 32 MIN MATHEW MIX MD Jan 31, 2019 15:53
[2019-01-31] MEDS ORDERED: ACET325T9 PO (16:01)
[2019-01-31] MEDS ORDERED: NITR0.4T SL (16:01)
[2019-01-31] MEDS ORDERED: POTA20TA40 PEG (16:01)
[2019-01-31] MEDS ORDERED: ATOR20TA58 PO (16:01)
[2019-01-31] MEDS ORDERED: AMIO200T4 PO (16:01)
[2019-01-31] MEDS ORDERED: PANT40TA77 PO (16:01)
[2019-01-31] MEDS ORDERED: FURO40TA4 PO (16:01)
[2019-01-31] MEDS ORDERED: HEPA50003 SQ (16:01)
[2019-01-31] MEDS ORDERED: CLOP75TA PO (16:01)
[2019-01-31] MEDS ORDERED: ASPI325T11 PO (16:01)
[2019-01-31] MEDS ORDERED: LISI-338 PO (16:01)
[2019-01-31] MEDS ORDERED: TAMS0.4C97 PO (16:01)
[2019-01-31] MEDS ORDERED: METO-247 PO (16:01)
[2019-01-31] MEDS ORDERED: OXYB5TAB7 PO (16:01)
[2019-01-31] MEDS ORDERED: LACT1CAP19 PO (16:01)
[2019-01-31] MEDS ORDERED: AMOX1TAB11 PO (16:01)
--- NOTE | 2019-01-31 16:03 | SNU/HH DC ---
DISCHARGE ORDERS DISCHARGE INFORMATION: FINAL DIAGNOSIS Problems Medical Problems: (1) Cardiorespiratory arrest Status: Acute (2) Elevated liver function tests Status: Acute (3) Elevated troponin Status: Acute (4) Hyperglycemia Status: Acute (5) Hypokalemia Status: Acute (6) Metabolic acidosis Status: Acute (7) Renal insufficiency Status: Acute (8) Ribs, multiple fractures Status: Acute (9) Severe sepsis Status: Acute (10) STEMI (ST elevation myocardial infarction) Status: Acute (11) Traumatic pneumothorax Status: Acute CONDITION ON DISCHARGE: Stable CODE STATUS: Code Status: Full PRISON: SNF STAY <30 DAYS: Yes HOSPICE: HOSPICE: No HOSPICE EVAL & TREAT: No LTAC: ADMIT TO LTAC: No POST DISCHARGE ORDERS: ACTIVITY ORDERS: Activity as tolerated DIET AFTER DISCHARGE: CHECKS AFTER DISCHARGE: CHECKS AFTER DISCHARGE: Check blood press - daily TREATMENT/EQUIPMENT ORDERS: ADAPTIVE EQUIPMENT NEEDED: Front wheeled walker Physical Therapy For: Evalulation/Treatment Occupational Therapy For: Evaluation/Treatment Speech Language Pathology For: Evaluation/Treatment DISCHARGE MEDICATIONS: Home Meds Active Scripts Oxybutynin Chloride (OXYBUTYNIN CHLORIDE) 5 Mg Tablet, 5 MG PO [id number] for BLADDER for 30 Days, #90 TAB Prov:MATHEW MIX MD 01/31/19 Lactobacillus Rhamnosus Gg (CULTURELLE) 1 Each Cap.sprink, 1 CAP PO BID for SUPPLEMENT for 30 Days, #60 CAP Prov:MATHEW MIX MD 01/31/19 Pantoprazole Sodium (PANTOPRAZOLE SODIUM ) 40 Mg Tablet., 40 MG PO DAILYAC for STOMACH ACID for 30 Days, #30 TAB.SR Prov:MATHEW MIX MD 01/31/19 Furosemide (FUROSEMIDE) 40 Mg Tablet, 40 MG PO DAILY for CHF for 30 Days, #30 TAB Prov:MATHEW MIX MD 01/31/19 Potassium Bicarbonate/Cit Ac (EFFER-K 20 MEQ TABLET EFF) 20 Meq Tablet.eff, 20 MEQ PEG DAILY for SUPPLEMENT for 14 Days, #14 TAB Prov:MATHEW MIX MD 01/31/19 Acetaminophen (TYLENOL) 325 Mg Tablet, 650 MG PO PRN Q6HRS PRN for MILD PAIN / TEMP for 10 Days, #30 TAB Prov:MATHEW MIX MD 01/31/19 Aspirin (ASPIRIN EC) 325 Mg Tablet.dr, 325 MG PO DAILYWBKFT for HEART for 30 Days, #30 TAB.SR Prov:MATHEW MIX MD 01/31/19 Lisinopril (LISINOPRIL) 5 Mg Tablet, 2.5 MG PO DAILY for BP for 30 Days, #15 TAB Prov:MATHEW MIX MD 01/31/19 Metoprolol Succinate (METOPROLOL SUCCINATE ( XL )) 100 Mg Tab.er.24h, 100 MG PO DAILY for HEART for 30 Days, #30 TAB.SR Prov:MATHEW MIX MD 01/31/19 Nitroglycerin (NITROSTAT) 0.4 Mg Tab.subl, 0.4 MG SL PRN Q5MIN PRN for CHEST PAIN for 30 Days, #30 TAB Prov:MATHEW MIX MD 01/31/19 Atorvastatin Calcium (ATORVASTATIN CALCIUM) 20 Mg Tablet, 20 MG PO QHS for HEART for 30 Days, #30 TAB Prov:MATHEW MIX MD 01/31/19 Amiodarone Hcl (AMIODARONE HCL) 200 Mg Tablet, 400 MG PO DAILY for HEART for 14 Days, #28 TAB Prov:MATHEW MIX MD 01/31/19 Clopidogrel Bisulfate (CLOPIDOGREL) 75 Mg Tablet, 75 MG PO DAILYWBKFT for HEART for 30 Days, #30 TAB Prov:MATHEW MIX MD 01/31/19 Heparin Sodium,Porcine (HEPARIN SODIUM) 5,000 Unit/1 Ml Vial, 5000 UNIT SQ BID for DVT PREVENTION for 7 Days, #7 EACH Prov:MATHEW MIX MD 01/31/19 Tamsulosin Hcl (FLOMAX) 0.4 Mg Cap.er.24h, 0.4 MG PO QHS for BLADDER for 30 Days, #30 CAP.SR Prov:MATHEW MIX MD 01/31/19 Amoxicillin/Potassium Clav (AMOX TR-K CLV 875-125 MG TAB) 1 Each Tablet, 1 TAB PO BID for INFEXCTION for 10 Days, #20 TAB Prov:MATHEW MIX MD 01/31/19 MATHEW MIX MD Jan 31, 2019 16:03
--- NOTE | 2019-01-31 16:08 | NUR ---
SS following up with discharge planning. Discharge orders received for [facility], ; fax [phone]. SS phoned and faxed discharge orders to [facility]. Pt will discharge today and go [facility] at 1900. [facility] to provide transportation. Pt, pt's RN, and pt's family notified.
--- NOTE | 2019-01-31 19:18 | NUR ---
Report called to nurse at [facility]. All meds and questions verified with nurse. Patients family took belongings with them. Patient transferred via wheelchair to [facility].
[2019-02-01] MEDS ORDERED: POTASSIUM BICARB 20 MEQ EFFERVESCENT TABLET. PEG SCH (09:00)
== END 2019-01-31 18:51 | DRG 853 ==
LOC: ER 15:06 → 1 WEST ICU 15:25 → 2 NORTH 01-28 17:45
PROVIDERS: ADMIT Internal Medicine; ATTEND Internal Medicine
PROC: 027036Z Dilation of Coronary Artery, One Artery with Three Drug-eluting Intraluminal Devices, Percutaneous Approach (ICD-10-PCS; principal; 2019-01-23)
PROC: 4A023N7 Measurement of Cardiac Sampling and Pressure, Left Heart, Percutaneous Approach (ICD-10-PCS; 2019-01-23)
PROC: B2111ZZ Fluoroscopy of Multiple Coronary Arteries using Low Osmolar Contrast (ICD-10-PCS; 2019-01-23)
PROC: 5A1945Z Respiratory Ventilation, 24-96 Consecutive Hours (ICD-10-PCS; 2019-01-23)
PROC: 0W9B30Z Drainage of Left Pleural Cavity with Drainage Device, Percutaneous Approach (ICD-10-PCS; 2019-01-24)
DX: A41.9 Sepsis, unspecified organism (principal); I21.3 ST elevation (STEMI) myocardial infarction of unspecified site; I46.2 Cardiac arrest due to underlying cardiac condition; I49.01 Ventricular fibrillation; J96.01 Acute respiratory failure with hypoxia; J18.9 Pneumonia, unspecified organism; G93.41 Metabolic encephalopathy; I50.43 Acute on chronic combined systolic (congestive) and diastolic (congestive) heart failure; S22.49XA Multiple fractures of ribs, unspecified side, initial encounter for closed fracture; S22.20XA Unspecified fracture of sternum, initial encounter for closed fracture; S27.0XXA Traumatic pneumothorax, initial encounter; N17.9 Acute kidney failure, unspecified; I47.1 Supraventricular tachycardia; I47.2 Ventricular tachycardia; J45.909 Unspecified asthma, uncomplicated; R65.20 Severe sepsis without septic shock; E83.41 Hypermagnesemia; E87.8 Other disorders of electrolyte and fluid balance, not elsewhere classified; E87.6 Hypokalemia; E11.65 Type 2 diabetes mellitus with hyperglycemia; X58.XXXA Exposure to other specified factors, initial encounter; F17.210 Nicotine dependence, cigarettes, uncomplicated; M19.90 Unspecified osteoarthritis, unspecified site; E03.9 Hypothyroidism, unspecified; I48.91 Unspecified atrial fibrillation; I25.10 Atherosclerotic heart disease of native coronary artery without angina pectoris; I25.5 Ischemic cardiomyopathy; F41.9 Anxiety disorder, unspecified; Y93.89 Activity, other specified; Y92.89 Other specified places as the place of occurrence of the external cause; Y99.8 Other external cause status; Z82.49 Family history of ischemic heart disease and other diseases of the circulatory system; Z79.02 Long term (current) use of antithrombotics/antiplatelets; Z79.82 Long term (current) use of aspirin
CPT/HCPCS: 31500; 36415; 36600; 51702; 70450; 71045; 71275; 74174; 80047; 80048; 80053; 80061; 80069; 80076; 80307; 81001; 82310; 82550; 82805; 82962; 83605; 83690; 83735; 83880; 84100; 84132; 84145; 84439; 84443; 84484; 85007; 85025; 85027; 85379; 85610; 85730; 86738; 87040; 87070; 87205; 87449; 92928; 92950; 93005; 93306; 93454; 94002; 94003; 94640; 95816; 99292; C1725; C1769; C1874; C1887; C1892; C9113; J0171; J0282; J0583; J0610; J0878; J1160; J1644; J1940; J2020; J2060; J2250; J2270; J2543; J2704; J3010; J3370; J3475; J3480; J3490; J7030; J7040; Q9967; 92526; 92610; 97110; 97116; 97530; 97535; 99291-25; C1713; G0378

== ENCOUNTER → 2019-05-01 | Outpatient (CLI) | payer BC, MEDICARE ==
[~2019-05-01] MED LIST changes: +ACET325T9 PO; +AMIO200T4 PO; +AMOX1TAB11 PO; +ASPI325T11 PO; +ATOR20TA58 PO; +CLOP75TA PO; -EPINEPHrine SYRINGE 1 MG/10 ML SYRINGE ONE; +FURO40TA4 PO; +HEPA50003 SQ; +LACT1CAP19 PO; +LISI-338 PO; +METO-247 PO; +NITR0.4T24 SL; +OXYB5TAB10 PO; +PANT40TA77 PO; +POTA20TA40 PEG; -SODIUM BICARB ADULT 8.4% 50 MEQ/50 ML DISP.SYRIN. ONE; +TAMS0.4C97 PO
--- NOTE | 2019-05-01 15:11 | CARD ---
MR#: [id number] Date of Study: 05/01/2019 Ordering Physician: ISAMAR CHEUNG, Referring Physician: ISAMAR CHENUG, Tech: Tootie Díaz APPROVED REPORT EXAM: Two-dimensional and M-mode echocardiogram with Doppler and color Doppler. Other Information Quality : AverageHR: 60bpm INDICATION Cardiomyopathy RISK FACTORS Previous smoker 2D DIMENSIONS RVDd3.3 (2.9-3.5cm)Left Atrium(2D)3.7 (1.6-4.0cm) IVSd0.8 (0.7-1.1cm)Aortic Root(2D)3.0 (2.0-3.7cm) LVDd4.9 (3.9-5.9cm)LVOT Diameter2.1 (1.8-2.4cm) PWd0.9 (0.7-1.1cm)LVDs2.2 (2.5-4.0cm) FS (%) 55.7 %SV99.0 ml LVEF(%)86.1 (>50%) Aortic Valve AoV Peak Lei.112.2cm/sAoV VTI20.6cm AO Peak GR.5.0mmHgLVOT Peak Lei.86.3cm/s LVOT VTI 16.29cmAO Mean GR.3mmHg OWEN (VMAX)2.43fm4CZV (VTI)2.87cm2 Mitral Valve MV E Vxwehmbj27.7cm/sMV DECEL [id number] MV A Xnfndbsr11.6cm/sMV IHU21pu E/A Ratio1.6MVA (PHT)3.05cm2 TDI E/Lateral E'4.9E/Medial E'5.6 Pulmonary Valve PV Peak Hoxphjjn30.2cm/sPV Peak Grad.3mmHg Tricuspid Valve TR P. Mmzrzvpf376kf/sRAP FIKTZZWM4edCc TR Peak Gr.56vpQdZGOF04xiRe Pulmonary Vein S1 Xvspskju35.2cm/sD2 Wjwhccac72.2cm/s PVa fvyhtwki597qxjz LEFT VENTRICLE The left ventricle is normal size. There is normal left ventricular wall thickness. The left ventricu lar systolic function is low normal. The Ejection Fraction is 50%. The left ventricular diastolic fun ction and filling is normal for age. RIGHT VENTRICLE The right ventricle is normal size. There is normal right ventricular wall thickness. The right ventr icular systolic function is normal. ATRIA The left atrium size is normal. The right atrium size is normal. The interatrial septum is intact wit h no evidence for an atrial septal defect or patent foramen ovale as noted on 2-D or Doppler imaging. AORTIC VALVE The aortic valve is normal in structure and function. Doppler and Color Flow revealed no significant aortic regurgitation. There is no significant aortic valvular stenosis. MITRAL VALVE The mitral valve is normal in structure and function. There is no evidence of mitral valve prolapse. There is no mitral valve stenosis. Doppler and Color Flow revealed no mitral valve regurgitation note d. TRICUSPID VALVE The tricuspid valve is normal in structure and function. Doppler and Color Flow revealed trace tricus pid regurgitation with an estimated PAP of 36 mmHg. There is no tricuspid valve stenosis. PULMONIC VALVE The pulmonic valve is not well visualized. Doppler and Color Flow revealed no pulmonic valvular regur gitation. GREAT VESSELS The aortic root is normal in size. The IVC is normal in size and collapses >50% with inspiration. PERICARDIAL EFFUSION There is no evidence of significant pericardial effusion. Critical Notification Critical Value: No <Conclusion> The left ventricular systolic function is low normal. The Ejection Fraction is 50%. Trace tricuspid regurgitation with an estimated PAP of 36 mmHg. There is no evidence of significant pericardial effusion. Signed by : Perez Mckee, Electronically Approved : 05/01/2019 15:11:27
== END | disposition home or self-care (01) ==
LOC: ECHO 12:45
PROVIDERS: ATTEND Internal Medicine Cardiovascular Disease
DX: I25.5 Ischemic cardiomyopathy (principal)
CPT/HCPCS: 93306

== ENCOUNTER → 2021-06-09 | Outpatient (CLI) | payer MEDICARE ==
[~2021-06-09] MED LIST changes: -AMIO200T4 PO; +AMIO200T53 PO; -LISI-338 PO; +LISI5TAB15 PO; +PERFLUTREN PROTEIN-A MICROSPHR 0.22 MG/ML 3 ML VIAL. IV ONE
--- NOTE | 2021-06-09 14:10 | CARD ---
MR#: [id number] Date of Study: 06/09/2021 Ordering Physician: ISAMAR CHEUNG, Referring Physician: ISAMAR CHEUNG, Tech: Pamela Desai [facility] APPROVED REPORT EXAM: Two-dimensional and M-mode echocardiogram with Doppler and color Doppler. Other Information Quality : Technically LimitedHR: 58bpm Rhythm : NSR INDICATION Cardiac Disease: CAD RISK FACTORS Hypertension Hyperlipidemia 2D DIMENSIONS RVDd3.6 (2.9-3.5cm)Left Atrium(2D)3.7 (1.6-4.0cm) IVSd1.0 (0.7-1.1cm)Aortic Root(2D)3.2 (2.0-3.7cm) LVDd4.5 (3.9-5.9cm)LVOT Diameter2.1 (1.8-2.4cm) PWd1.0 (0.7-1.1cm)LVDs3.2 (2.5-4.0cm) FS (%) 29.4 %SV52.5 ml LVEF(%)56.5 (>50%) Aortic Valve AoV Peak Lei.119.7cm/sAoV VTI25.8cm AO Peak GR.5.7mmHgLVOT Peak Lei.96.2cm/s AO Mean GR.3mmHgAVA (VMAX)2.77cm2 Mitral Valve MV E Tcwnwuop63.1cm/sMV DECEL PYES112sd MV A Qhixqovt29.0cm/sE/A Ratio1.5 Pulmonary Valve PV Peak Ibvmlztr93.7cm/s Tricuspid Valve TR P. Soljqyha586gj/sTR Peak Gr.27mmHg LEFT VENTRICLE The left ventricle is normal size. There is normal left ventricular wall thickness. The left ventricu lar systolic function is normal. Estimated ejection fraction 55-60%. There is normal LV segmental wa ll motion. The left ventricular diastolic function and filling is normal for age. RIGHT VENTRICLE The right ventricle is borderline dilated. There is normal right ventricular wall thickness. The righ t ventricular systolic function is normal. ATRIA The left atrium size is normal. The right atrium is borderline dilated. The interatrial septum is int act with no evidence for an atrial septal defect or patent foramen ovale as noted on 2-D or Doppler i maging. AORTIC VALVE The aortic valve is normal in structure and function. Doppler and Color Flow revealed no significant aortic regurgitation. There is no significant aortic valvular stenosis. MITRAL VALVE The mitral valve is normal in structure and function. There is no evidence of mitral valve prolapse. There is no mitral valve stenosis. Doppler and Color-flow revealed mild mitral regurgitation. TRICUSPID VALVE The tricuspid valve is normal in structure and function. Doppler and Color Flow revealed trace tricus pid valve regurgitation. There is no tricuspid valve stenosis. GREAT VESSELS The aortic root is normal in size. The ascending aorta is normal in size. The IVC is dilated and marilynn apses <50% with inspiration. PERICARDIAL EFFUSION There is no evidence of significant pericardial effusion. Critical Notification Critical Value: No <Conclusion> The left ventricular systolic function is normal. Estimated ejection fraction 55-60%. There is normal LV segmental wall motion. Mild mitral regurgitation. Trace tricuspid valve regurgitation. There is no evidence of significant pericardial effusion. Signed by : Perez Mckee, Electronically Approved : 06/09/2021 14:09:50
== END ==
LOC: ECHO 09:38
PROVIDERS: ATTEND Internal Medicine Cardiovascular Disease
DX: I34.0 Nonrheumatic mitral (valve) insufficiency (principal); I46.9 Cardiac arrest, cause unspecified; I25.10 Atherosclerotic heart disease of native coronary artery without angina pectoris
CPT/HCPCS: C8929; Q9956